=== PATIENT | female | born 1935 | race Caucasian/White ===

== ENCOUNTER 2016-03-25 11:05 | Inpatient (IN) | payer MEDICARE, BC ==
[2016-03-25] MEDS ORDERED: DILTIAZEM 125 MG in SODIUM CHLORIDE 0.9% 100 ML IV STA (11:34)
--- NOTE | 2016-03-25 11:42 | ED ---
General Adult HPI - General Chief complaint: Extremity Injury, Lower Stated complaint: LEFT FOOT SWELLING Time Seen by Provider: 03/25/16 11:25 Source: patient, RN notes reviewed, old records reviewed Mode of arrival: ambulatory Limitations: no limitations - History of Present Illness Initial comments: This is a 80-year-old female who presented with complaints of swollen ankles and feet for the past week she denies any fevers chills nausea vomiting sweats he does have some shortness of breath. She is of a history of hypertension history of A. fib in the past no history of DVTs. She does complain some calf pain. No leg or ankle pain otherwise. No cough or phlegm production. She does get some exertional dyspnea. - Related Data Home Medications Medication Instructions Recorded Confirmed Acetaminophen Tab [Tylenol Tab] 325 - 650 mg PO Q4H PRN 03/25/16 03/25/16 Albuterol Inhaler [Ventolin Hfa 1 - 2 puff INHALATION Q6HR PRN 03/25/16 03/25/16 Inhaler] Cholecalciferol [Vitamin D3] 2,000 unit PO DAILY 03/25/16 03/25/16 Fluticasone/Salmeterol [Advair 1 puff INHALATION RT-BID 03/25/16 03/25/16 250-50 Diskus] LORazepam [Ativan] 1 mg PO HS 03/25/16 03/25/16 Metoprolol Tartrate [Lopressor] 25 mg PO BID 03/25/16 03/25/16 Tiotropium 18 Mcg/Puff [Spiriva] 1 cap INHALATION RT-DAILY 03/25/16 03/25/16 Allergies Allergy/AdvReac Type Severity Reaction Status Date / Time clindamycin HCl Allergy Swelling Verified 03/25/16 12:51 [From Cleocin] cefuroxime axetil AdvReac Unknown Verified 03/25/16 12:51 [From Ceftin] levofloxacin [From Levaquin] AdvReac Sweating Verified 03/25/16 12:51 prednisone AdvReac Sweating Verified 03/25/16 12:51 Review of Systems ROS Statement: Those systems with pertinent positive or pertinent negative responses have been documented in the HPI. ROS Other: All systems not noted in ROS Statement are negative. Past Medical History Past Medical History: Atrial Fibrillation, COPD, GERD/Reflux, Osteoarthritis (OA ) Additional Past Medical History / Comment(s): Generalized anxiety disorder, chronic kidney disease stage III. hearing impaired History of Any Multi-Drug Resistant Organisms: None Reported Past Surgical History: Adenoidectomy, Appendectomy, Hysterectomy, Orthopedic Surgery, Tonsillectomy Additional Past Surgical History / Comment(s): Right knee arthroscopy for torn meniscus. Colonoscopies x 3 total. Bilateral eyelid surgery. Past Anesthesia/Blood Transfusion Reactions: No Reported Reaction Additional Past Anesthesia/Blood Transfusion Reaction / Comment(s): Pt has never recieved blood. Past Psychological History: Anxiety Additional Psychological History / Comment(s): Pt is . She lives alone in her single level home in [facility]. She is very independent. She rides bicycle and is an avid bowler. She drives a car. She has a niece that lives nearby if she needs someone. She shovels her own driveway. Smoking Status: Former smoker Past Alcohol Use History: Occasional Additional Past Alcohol Use History / Comment(s): Patient was a smoker one pack per day 54 years. She quit 10 years ago. She drinks alcohol daily 1-2 drinks if she is at home. 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 She has no pets in the home. Past Drug Use History: None Reported - Past Family History Father Family Medical History: Cancer Additional Family Medical History / Comment(s): Father at age 77yrs of cancer which pt believes may have started in his throat. Mother Family Medical History: Dementia Additional Family Medical History / Comment(s): Mother at age 95yrs. She was very healthy most of her life- she had dementia at the very end of her life. General Exam - General Exam Comments Initial Comments: This is a well-developed well-nourished awake alert oriented 3 female Limitations: no limitations General appearance: alert, in no apparent distress Head exam: Present: atraumatic, normocephalic, normal inspection Eye exam: Present: normal appearance, PERRL, EOMI. Absent: scleral icterus, conjunctival injection, periorbital swelling ENT exam: Present: normal exam, mucous membranes moist Neck exam: Present: normal inspection. Absent: tenderness, meningismus, lymphadenopathy Respiratory exam: Present: decreased breath sounds. Absent: respiratory distress, wheezes, rales, rhonchi, stridor Cardiovascular Exam: Present: tachycardia, irregular rhythm, normal heart sounds. Absent: systolic murmur, diastolic murmur, rubs, gallop, clicks GI/Abdominal exam: Present: soft, normal bowel sounds. Absent: distended, tenderness, guarding, rebound, rigid Extremities exam: Present: full ROM, normal capillary refill, pedal edema, calf tenderness. Absent: tenderness, joint swelling Back exam: Present: normal inspection Neurological exam: Present: alert, oriented X3, CN II-XII intact Psychiatric exam: Present: normal affect, normal mood Skin exam: Present: warm, dry, intact, normal color. Absent: rash Course Vital Signs 03/25/16 03/25/16 03/25/16 11:17 11:38 11:42 Temperature 97.4 F L Pulse Rate 137 H 144 H Pulse Rate [ 146 H Sanitarian ] Respiratory 20 20 22 Rate Blood Pressure 131/95 142/94 O2 Sat by Pulse 96 98 Oximetry 03/25/16 03/25/16 03/25/16 12:53 13:10 14:30 Temperature 97.6 F Pulse Rate 100 117 H 110 H Pulse Rate [ Sanitarian ] Respiratory 18 18 Rate Blood Pressure 119/79 151/84 O2 Sat by Pulse 97 100 Oximetry - Reevaluation(s) Reevaluation #1: 03/25/16 16:02 Reevaluation patient after the initial evaluation showed no chest pain. He still having symptoms however Reevaluation #2: 03/25/16 16:02 She had markedly elevated d-dimer ultrasound was done which is negative for DVT CAT scan chest showed no evidence of pulmonary embolism Medical Decision Making - Medical Decision Making I did discuss findings with patient and with the admitting physician patient will be admitted for evaluation of rapid atrial fibrillation. - Lab Data Result diagrams: 03/25/16 11:35 03/25/16 11:35 Lab Results 03/25/16 03/25/16 03/25/16 Range/Units 11:35 11:35 11:35 WBC (3.8-10.6) k/uL RBC (3.80-5.40) m/uL Hgb (11.4-16.0) gm/dL Hct (34.0-46.0) % MCV (80.0-100.0) fL MCH (25.0-35.0) pg MCHC (31.0-37.0) g/dL RDW (11.5-15.5) % Plt Count (150-450) k/uL Neutrophils % % Lymphocytes % % Monocytes % % Eosinophils % % Basophils % % Neutrophils # (1.3-7.7) k/uL Lymphocytes # (1.0-4.8) k/uL Monocytes # (0-1.0) k/uL Eosinophils # (0-0.7) k/uL Basophils # (0-0.2) k/uL PT 12.3 H (9.0-12.0) sec INR 1.2 (<1.1) APTT 22.4 (22.0-30.0) sec D-Dimer (<0.60) mg/L FEU Sodium (137-145) mmol/L Potassium (3.5-5.1) mmol/L Chloride (98-107) mmol/L Carbon Dioxide (22-30) mmol/L Anion Gap mmol/L BUN (7-17) mg/dL Creatinine (0.52-1.04) mg/dL Est GFR (MDRD) Af Amer (>60 ml/min/1.73 sqM) Est GFR (MDRD) Non-Af (>60 ml/min/1.73 sqM) Glucose (74-99) mg/dL Calcium (8.4-10.2) mg/dL Magnesium (1.6-2.3) mg/dL Total Bilirubin (0.2-1.3) mg/dL AST (14-36) U/L ALT (9-52) U/L Alkaline Phosphatase (38-126) U/L Total Creatine Kinase 115 (30-135) U/L CK-MB (CK-2) 2.8 H* (0.0-2.4) ng/mL CK-MB (CK-2) Rel Index 2.4 Troponin I <0.012 (0.000-0.034) ng/mL NT-Pro-B Natriuret Pep 1390 pg/mL Total Protein (6.3-8.2) g/dL Albumin (3.5-5.0) g/dL TSH (0.465-4.680) mIU/L 03/25/16 03/25/16 03/25/16 Range/Units 11:35 11:35 11:35 WBC 7.4 (3.8-10.6) k/uL RBC 4.66 (3.80-5.40) m/uL Hgb 14.3 (11.4-16.0) gm/dL Hct 45.4 (34.0-46.0) % MCV 97.3 (80.0-100.0) fL MCH 30.6 (25.0-35.0) pg MCHC 31.4 (31.0-37.0) g/dL RDW 12.8 (11.5-15.5) % Plt Count 170 (150-450) k/uL Neutrophils % 80 % Lymphocytes % 12 % Monocytes % 4 % Eosinophils % 2 % Basophils % 1 % Neutrophils # 5.9 (1.3-7.7) k/uL Lymphocytes # 0.9 L (1.0-4.8) k/uL Monocytes # 0.3 (0-1.0) k/uL Eosinophils # 0.1 (0-0.7) k/uL Basophils # 0.1 (0-0.2) k/uL PT (9.0-12.0) sec INR (<1.1) APTT (22.0-30.0) sec D-Dimer 4.37 H (<0.60) mg/L FEU Sodium 141 (137-145) mmol/L Potassium 4.4 (3.5-5.1) mmol/L Chloride 103 (98-107) mmol/L Carbon Dioxide 27 (22-30) mmol/L Anion Gap 11 mmol/L BUN 17 (7-17) mg/dL Creatinine 1.22 H (0.52-1.04) mg/dL Est GFR (MDRD) Af Amer 51 (>60 ml/min/1.73 sqM) Est GFR (MDRD) Non-Af 42 (>60 ml/min/1.73 sqM) Glucose 109 H (74-99) mg/dL Calcium 9.6 (8.4-10.2) mg/dL Magnesium 1.8 (1.6-2.3) mg/dL Total Bilirubin 0.8 (0.2-1.3) mg/dL AST 37 H (14-36) U/L ALT 50 (9-52) U/L Alkaline Phosphatase 73 (38-126) U/L Total Creatine Kinase (30-135) U/L CK-MB (CK-2) (0.0-2.4) ng/mL CK-MB (CK-2) Rel Index Troponin I (0.000-0.034) ng/mL NT-Pro-B Natriuret Pep pg/mL Total Protein 6.8 (6.3-8.2) g/dL Albumin 4.3 (3.5-5.0) g/dL TSH 2.710 (0.465-4.680) mIU/L - EKG Data -: EKG Interpreted by Me (Rapid atrial fibrillation with a rate of 145 QRS of 86 QT/QTC of 3 or 47) - Radiology Data Radiology results: report reviewed, image reviewed Critical Care Time Critical Care Time: Yes Critical Care Time: 32 minutes of critical care time which includes initial assessment with history physical lab and x-ray evaluation reevaluation of response to therapy. Reevaluation the patient again. Discussion with the admitting physician. Evaluation of the lab and x-rays were done. Evaluation CAT scan ultrasound. Admission orders and documentation of the above. Disposition Clinical Impression: Rapid atrial fibrillation, Bronchospasm, acute Disposition: ADMITTED IP TO THIS HOSP Condition: Stable
[2016-03-25 11:49] LABS: Basophils # (A) 0.1 k/uL (0-0.2); Basophils % (A) 1 %; CH 30.8; CHCM 31.8; Eosinophils # (A) 0.1 k/uL (0-0.7); Eosinophils % (A) 2 %; HCT 45.4 % (34.0-46.0); HDW 2.34; HGB 14.3 gm/dL (11.4-16.0); Luc # (Auto) 0.11; Luc % (Auto) 1; Lymphocytes # (A) 0.9 k/uL (1.0-4.8); Lymphocytes % (A) 12 %; MCH 30.6 pg (25.0-35.0); MCHC 31.4 g/dL (31.0-37.0); MCV 97.3 fL (80.0-100.0); Mean Platelet Volume 7.4; Monocytes # (A) 0.3 k/uL (0-1.0); Monocytes % (A) 4 %; Neutrophils # (A) 5.9 k/uL (1.3-7.7); Neutrophils % (A) 80 %; RBC 4.66 m/uL (3.80-5.40); RDW 12.8 % (11.5-15.5); WBC 7.4 k/uL (3.8-10.6); WBC (Perox) 7.47
[2016-03-25 11:59] LABS: Calcium 9.6 mg/dL (8.4-10.2); Magnesium 1.8 mg/dL (1.6-2.3); Potassium 4.4 mmol/L (3.5-5.1); Total Bilirubin 0.8 mg/dL (0.2-1.3); Total Protein 6.8 g/dL (6.3-8.2)
[2016-03-25 12:03] LABS: INR 1.2 (<1.1); Partial Thromboplastin Time 22.4 sec (22.0-30.0); Prothrombin Time 12.3 sec (9.0-12.0)
[2016-03-25 12:10] LABS: Creatine Kinase 115 U/L (30-135)
--- NOTE | 2016-03-25 12:14 | XR ---
EXAMINATION TYPE: XR chest 1V portable DATE OF EXAM: 03/25/2016 11:57 AM COMPARISON: Chest x-ray and CT chest April 20, 2014. HISTORY: Ankle swelling per patient. Dysrhythmia per order TECHNIQUE: Single AP portable frontal upright view of the chest is obtained. FINDINGS: Underlying emphysematous change with left basilar linear scarring is redemonstrated. Ther e is no suspicious new focal airspace opacity, pleural effusion, or pneumothorax seen bilaterally The cardiac silhouette size is enlarged with atherosclerotic aorta. The osseous structures are somewha t demineralized. IMPRESSION: Chronic emphysematous change and cardiomegaly without acute pulmonary process. No signif icant change from prior studies.
[2016-03-25 12:23] LABS: Troponin I <0.012 ng/mL (0.000-0.034)
[2016-03-25 12:27] LABS: Creatine Kinase MB 2.8 ng/mL (0.0-2.4)
--- NOTE | 2016-03-25 13:10 | US ---
EXAMINATION TYPE: US venous doppler duplex LE DATE OF EXAM: 03/25/2016 11:42 AM COMPARISON: US 04/20/2014 right lower extremity CLINICAL HISTORY: US. Patient presents with swollen ankles and feet for the past week as well as calf tenderness. She has a history of hypertension and Afib. SIDE PERFORMED: Bilateral VESSELS IMAGED: External Iliac Vein (EIV) Common Femoral Vein Deep Femoral Vein Greater Saphenous Vein * Femoral Vein Popliteal Vein Proximal Calf Veins (* superficial vessels) Right Leg: Negative for DVT Left Leg: Negative for DVT TECHNOLOGIST IMPRESSION: Negative as seen for DVT bilaterally. Satisfactory compressibility, phasicity, and blood flow is seen at the following levels above. IMPRESSION: No ultrasound evidence for acute DVT in either lower extremity.
[2016-03-25] MEDS ORDERED: RX INFO: IV CONTRAST WAS GIVEN 1 EACH MISC MISCELLANE PRN (13:32)
--- NOTE | 2016-03-25 14:48 | CT ---
EXAMINATION TYPE: CT angio chest DATE OF EXAM: 03/25/2016 2:18 PM COMPARISON: Prior CTA chest April 20, 2014 HISTORY: Prior study on PACS. Patient having swelling to ankles chest pain rule out pulmonary embolis m. CT DLP: 561.0 mGycm Automated exposure control for dose reduction was used. CONTRAST: CTA scan of the thorax is performed with IV Contrast, patient injected with 80, wasted 55 mL of Visip aque 320, pulmonary embolism protocol. MIP images are created and reviewed. 3D reconstructed images are created on an independent workstation and reviewed. FINDINGS: LUNGS: Background of mild to moderate emphysematous change is present bilaterally. There is some scat tered linear scarring and/or atelectasis in both lung bases. There is no concerning noncalcified pare nchymal nodule or mass identified. There is redemonstration of 1 cm central calcified nodule in the r ight midlung anteriorly on axial image 66 presumed benign. MEDIASTINUM: There is satisfactory enhancement of the pulmonary artery and its branches, there is no CT evidence for pulmonary embolism. There are no greater than 1 cm hilar or mediastinal lymph nodes. There are prominent but subcentimeter prevascular, AP window, pericarinal, bilateral hilar, and subc arinal lymph nodes. No pericardial effusion is seen. There is moderate right greater than left atria l dilatation redemonstrated. There is no significant cardiomegaly. OTHER: Small hiatal hernia is present. There is 2 mm nonobstructing calculus posteriorly mid pole le je right kidney on axial image 189 slight underlying scoliotic curvature is present. Multilevel spur ring in the spine is present. There is persistent slight low-attenuation and lobulation of liver. IMPRESSION: 1. NO CT EVIDENCE FOR PULMONARY EMBOLISM. 2. MILD TO MODERATE EMPHYSEMATOUS CHANGE WITH BASILAR ATELECTATIC CHANGE AND/OR SCARRING. NO SUSPICIO US ACUTE PULMONARY PROCESS IS SEEN.
[2016-03-25] MEDS ORDERED: NALOXONE 0.4 MG/ML 1 ML VIAL IV PRN (16:07)
[2016-03-25] MEDS ORDERED: HEPARIN SODIUM,PORCINE 5,000 UNIT/ML 1 ML VIAL IV ONE (16:08)
[2016-03-25] MEDS: HEPARIN SODIUM,PORCINE/D5W PMX 25,000 UNIT in DEXTROSE/WATER 1 500ML.BAG IV SCH (16:34)
[2016-03-25 18:16] VITALS: BMI 24.9
[2016-03-25] MEDS ORDERED: IPRATROPIUM-ALBUTEROL 3 ML NEB INHALATION SCH (20:00)
[2016-03-25 20:21] LABS: Creatine Kinase MB 1.8 ng/mL (0.0-2.4)
[2016-03-25] MEDS: FUROSEMIDE 10 MG/ML 4 ML VIAL IV SCH (20:58)
[2016-03-25] MEDS: LORazepam 1 MG TAB PO SCH (20:58)
[2016-03-25] MEDS: METOPROLOL TARTRATE 25 MG TAB PO SCH (21:00)
[2016-03-25] MEDS ORDERED: IPRATROPIUM-ALBUTEROL 3 ML NEB INHALATION PRN (21:47)
[2016-03-25] MEDS ORDERED: ALPRAZolam 0.25 MG TAB PO PRN (22:53)
[2016-03-25] MEDS ORDERED: HYDROcodone/APAP 5-325MG 1 EACH TAB PO PRN (22:53)
[2016-03-26 00:18] LABS: Creatine Kinase MB 1.3 ng/mL (0.0-2.4)
[2016-03-26 00:20] LABS: Troponin I 0.074 ng/mL (0.000-0.034)
[2016-03-26] MEDS: MELATONIN 3 MG TABLET PO SCH ×2 (01:42→22:37)
[2016-03-26 01:58] LABS: Appearance,Urine Clear (Clear); Bilirubin,Urine Negative (Negative); Glucose,Urine (UA) Negative (Negative); Ketones,Urine Negative (Negative); Leukocyte Esterase,Urine Negative (Negative); Nitrite,Urine Negative (Negative); Protein,Urine Negative (Negative); Specific Gravity,Urine 1.007 (1.001-1.035); UA Billing (MACRO vs. MICRO) CHEM; Urobilinogen,Urine <2.0 mg/dL (<2.0)
[2016-03-26] MEDS: FUROSEMIDE 10 MG/ML 4 ML VIAL IV SCH ×2 (08:34→22:37)
[2016-03-26] MEDS: METOPROLOL TARTRATE 25 MG TAB PO SCH ×2 (08:34→22:37)
[2016-03-26] MEDS: IPRATROPIUM-ALBUTEROL 3 ML NEB INHALATION SCH ×4 (09:16→19:43)
[2016-03-26] MEDS: SYMBICORT 80-4.5 MCG INHALER INHALATION SCH ×2 (09:16→19:43)
[2016-03-26 09:59] LABS: Basophils # (A) 0.1 k/uL (0-0.2); Basophils % (A) 1 %; CH 31.6; CHCM 32.2; Eosinophils # (A) 0.1 k/uL (0-0.7); Eosinophils % (A) 1 %; HCT 45.1 % (34.0-46.0); HDW 2.32; HGB 13.9 gm/dL (11.4-16.0); Luc # (Auto) 0.06; Luc % (Auto) 1; Lymphocytes # (A) 0.5 k/uL (1.0-4.8); Lymphocytes % (A) 5 %; MCH 30.4 pg (25.0-35.0); MCHC 30.8 g/dL (31.0-37.0); MCV 98.6 fL (80.0-100.0); Mean Platelet Volume 8.5; Monocytes # (A) 0.3 k/uL (0-1.0); Monocytes % (A) 3 %; Neutrophils # (A) 9.1 k/uL (1.3-7.7); Neutrophils % (A) 90 %; RBC 4.57 m/uL (3.80-5.40); RDW 12.8 % (11.5-15.5); WBC 10.1 k/uL (3.8-10.6); WBC (Perox) 10.93
[2016-03-26 10:09] LABS: Potassium 3.9 mmol/L (3.5-5.1)
--- NOTE | 2016-03-26 11:28 | HP ---
DATE OF ADMISSION: The chief complaint is left foot swelling. HISTORY OF PRESENT ILLNESS: This is an 80-year-old woman with a past medical history of atrial fibrillation, history of COPD, history of DJD, history of generalized anxiety, history of chronic renal disease, history of anxiety, lives alone in a single level at home . The patient was noted to have ankle swelling and some discomfort and patient was taken to [facility], admitted for further evaluation and treatment. The patient was found to have atrial fibrillation with fast ventricular rate and patient was admitted for further evaluation and treatment. Patient also had some bronchospasm also. There is no history of fever, chills or rigors. No history of headache, loss of consciousness or seizures. The patient followed with Dr. Alcantar in the outpatient setting. PAST MEDICAL HISTORY: History of atrial fibrillation, COPD, DJD, history of generalized anxiety disorder, adenoidectomy, appendectomy, history of anxiety. Medications prior to admission include home medications prior to admission include: 1. Spiriva 1 puff daily. 2. Lopressor 25 mg daily. 3. Ativan 1 mg p.o. q.h.s. 4. Advair 250/50 one puff b.i.d. 5. Vitamin D3 two thousand daily. 6. Ventolin HFA 1 to 2 puffs q.6 p.r.n. 7. Tylenol 325 to 650 mg q.4 p.r.n. Allergies are CLINDAMYCIN, CIPROFLOXACIN, LEVAQUIN and PREDNISONE. FAMILY HISTORY: History of cancer in the family, throat cancer in the father. SOCIAL HISTORY: Previous history of smoking, no history of current smoking or alcohol intake. REVIEW OF SYSTEMS: ENT: No diminished vision or diminished hearing. CARDIOVASCULAR: As mentioned earlier. RESPIRATORY: As mentioned earlier. GI: No nausea. : No dysuria. NERVOUS SYSTEM: No numbness or weakness. ALLERGY/IMMUNOLOGY: No asthma or hayfever. MUSCULOSKELETAL: As mentioned earlier. HEMATOLOGY/ONCOLOGY: No history of anemia. ENDOCRINE: As mentioned earlier. CONSTITUTIONAL: As mentioned earlier. DERMATOLOGY: Negative. RHEUMATOLOGY: Negative. PSYCHIATRY: As mentioned earlier. PHYSICAL EXAM: Patient is alert and oriented x3. Pulse 132, irregular. Blood pressure 135/96, respirations 20, temperature is normal, pulse ox is 96% on 2 L. HEENT: Conjunctivae normal, oral mucosa moist. NECK: No jugular venous congestion. No lymph node enlargement. CARDIOVASCULAR SYSTEM: S1, S2, irregular, tachycardic. No murmur. RESPIRATORY: Breath sounds diminished at the bases, bilateral scattered rhonchi and expiratory wheeze, no crackles. Abdomen is soft, nontender. No mass palpable. EXTREMITIES: Bilateral leg edema present. Otherwise, pulses are normal. No swelling. NERVOUS SYSTEM: Higher function as mentioned. Moves all 4 limbs. No focal motor deficits. LYMPHATICS: No lymph node in the neck, axillae or groin. SKIN: No ulcer, rash or bleeding. Labs are at this time shows CBC within normal limits. INR and PT is 12.3, INR is 1.2. D-dimer is 4.37, creatinine is 1.22 and CK-MB is 2.8. ASSESSMENT: 1. Atrial fibrillation with fast ventricular rate. 2. Bilateral leg edema, rule out congestive heart failure acute exacerbation or cor pulmonale. 3. Chronic obstructive pulmonary disease. 4. Degenerative joint disease. 5. Generalized anxiety. 6. Chronic kidney disease, stage III. 7. Hard of hearing. 8. History of hysterectomy. 9. History of degenerative joint disease. 10. History of anxiety. 11. Remote history of nicotine dependence. 12. History of gastroesophageal reflux disease. 13. History of renal failure. RECOMMENDATION: Recommend to continue current medications, continue monitoring and symptomatic treatment. Otherwise, at this time continue the bronchodilators. I would also continue with Lasix and obtain a 2-D echo with a Doppler. Cardiology will be consulted and guarded prognosis because of multiple complex medical issues. A copy of this will be forwarded to Dr. Alcantar who is the primary physician. [email or web address]
--- NOTE | 2016-03-26 11:39 | P.CRDCN ---
History of Present Illness Consult date: 03/26/16 Chief complaint: CHF History of present illness: This is a pleasant 80-year-old female patient who never seen a superintendent transmission in the past with a past medical history significant for COPD, paroxysmal A. fib, hypertension, and dyslipidemia, presented to the hospital complaining of progressive dyspnea. She has not been feeding well over the last 4 weeks. She describes exertional dyspnea associated with bilateral lower extremities edema. Over the last several days she has been feeding her heart was racing up. The patient denies having any chest pain or discomfort and denies feeling any dizziness or lightheadedness. She was diagnosed with congestive heart failure exacerbation and she was started on Lasix IV. Also she was noted to be in A. fib with RVR and she was started on Cardizem and drip. The EKG showed A. fib with RVR with diffuse ST and T wave abnormalities likely represent underlying CAD. The chest x-ray showed chronic emphysematous changes without any acute finding. The BNP came in to elevated. The patient never had any echocardiogram over the last year. We'll continue the Lasix IV. Continue the Cardizem drip to control the heart rate. Unfortunately I cannot increase the dose of metoprolol by mouth because of the marginally low blood pressure. We will obtain an echocardiogram with Doppler to assess the LV function. The patient need to be on anticoagulation. Currently she is on heparin IV. We will consider starting her on one of the new anticoagulation agent was sitting echocardiogram performed. Past Medical History Past Medical History: Atrial Fibrillation, COPD, Osteoarthritis (OA) Additional Past Medical History / Comment(s): Generalized anxiety disorder, chronic kidney disease stage III. hearing impaired History of Any Multi-Drug Resistant Organisms: None Reported Past Surgical History: Adenoidectomy, Appendectomy, Hysterectomy, Orthopedic Surgery, Tonsillectomy Additional Past Surgical History / Comment(s): Right knee arthroscopy for torn meniscus. Colonoscopies x 3 total. Bilateral eyelid surgery. Past Anesthesia/Blood Transfusion Reactions: No Reported Reaction Additional Past Anesthesia/Blood Transfusion Reaction / Comment(s): Pt has never recieved blood. Past Psychological History: Anxiety Additional Psychological History / Comment(s): Pt is . She lives alone in her single level home in [facility]. She is very independent. She rides bicycle and is an avid bowler. She drives a car. She has a niece that lives nearby if she needs someone. She shovels her own driveway. Smoking Status: Former smoker Past Alcohol Use History: Occasional Additional Past Alcohol Use History / Comment(s): Patient was a smoker one pack per day 54 years. She quit 12 years ago. She drinks alcohol daily 1-2 drinks if she is at home. 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 She has no pets in the home. Past Drug Use History: None Reported - Past Family History Father Family Medical History: Cancer Additional Family Medical History / Comment(s): Father at age 77yrs of cancer which pt believes may have started in his throat. Mother Family Medical History: Dementia Additional Family Medical History / Comment(s): Mother at age 95yrs. She was very healthy most of her life- she had dementia at the very end of her life. Medications and Allergies Home Medications Medication Instructions Recorded Confirmed Type Acetaminophen Tab [Tylenol Tab] 325 - 650 mg PO Q4H PRN 03/25/16 03/25/16 History Albuterol Inhaler [Ventolin Hfa 1 - 2 puff INHALATION Q6HR PRN 03/25/16 History Inhaler] Cholecalciferol [Vitamin D3] 2,000 unit PO DAILY 03/25/16 03/25/16 History Fluticasone/Salmeterol [Advair 1 puff INHALATION RT-BID 03/25/16 03/25/16 History 250-50 Diskus] LORazepam [Ativan] 1 mg PO HS 03/25/16 03/25/16 History Metoprolol Tartrate [Lopressor] 25 mg PO BID 03/25/16 03/25/16 History Tiotropium 18 Mcg/Puff [Spiriva] 1 cap INHALATION RT-DAILY 03/25/16 03/25/16 History Allergies Allergy/AdvReac Type Severity Reaction Status Date / Time clindamycin HCl Allergy Swelling Verified 03/25/16 12:51 [From Cleocin] cefuroxime axetil AdvReac Unknown Verified 03/25/16 12:51 [From Ceftin] levofloxacin [From Levaquin] AdvReac Sweating Verified 03/25/16 12:51 prednisone AdvReac Sweating Verified 03/25/16 12:51 Physical Exam Vitals: Vital Signs Temp Pulse Pulse Resp BP BP Pulse Ox 03/26/16 11:12 112 H 16 98/64 97 03/26/16 09:25 104 H 03/26/16 09:16 100 03/26/16 08:00 97.6 F 116 H 16 109/63 97 03/26/16 04:00 112 H 18 120/73 98 03/26/16 00:00 122 H 20 136/82 97 03/25/16 20:48 110 H 03/25/16 20:39 110 H 98 03/25/16 20:00 132 H 20 135/90 96 03/25/16 17:10 135 H 18 160/98 98 03/25/16 16:36 97.1 F L 115 H 18 107/84 100 Intake and Output 03/25/16 03/26/16 03/26/16 22:59 06:59 14:59 Intake Total 200 719.302 Output Total 1900 900 Balance 200 -1180.698 -900 Intake: IV 60 Heparin Sodium,Porcine/ 60 D5w Pmx 25,000 unit In Dextrose/Water 1 500ml. bag @ 12 UNITS/KG/HR 17. 41 mls/hr IV .Q24H JORDY Rx #:[id number] Intake, IV Titration 179.302 Amount Diltiazem 125 mg In 20 Sodium Chloride 0.9% 100 ml @ 5 MG/HR 5 mls/hr IV .Q24H STA Rx#:[id number] Heparin Sodium,Porcine/ 159.302 D5w Pmx 25,000 unit In Dextrose/Water 1 500ml. bag @ 12 UNITS/KG/HR 17. 41 mls/hr IV .Q24H JORDY Rx #:[id number] Oral 200 480 Output: Urine 1900 900 Other: # Voids 4 Weight 72.2 kg 71.9 kg - Constitutional General appearance: no acute distress - Respiratory Respiratory: bilateral: diminished - Cardiovascular Rhythm: irregularly irregular Heart sounds: normal: S1, S2 Results 03/26/16 09:16 03/26/16 09:16 Cardiac Enzymes 03/25/16 03/25/16 03/26/16 Range/Units 19:41 23:18 09:16 CK-MB (CK-2) 1.8 1.3 (0.0-2.4) ng/mL Troponin I 0.074 H* 0.138 H* (0.000-0.034) ng/mL Coagulation 03/25/16 03/26/16 Range/Units 23:18 09:16 APTT 37.1 H 53.2 H (22.0-30.0) sec CBC 03/26/16 Range/Units 09:16 WBC 10.1 (3.8-10.6) k/uL RBC 4.57 (3.80-5.40) m/uL Hgb 13.9 (11.4-16.0) gm/dL Hct 45.1 (34.0-46.0) % Plt Count 147 L (150-450) k/uL Comprehensive Metabolic Panel 03/26/16 Range/Units 09:16 Sodium 137 (137-145) mmol/L Potassium 3.9 (3.5-5.1) mmol/L Chloride 99 (98-107) mmol/L Carbon Dioxide 27 (22-30) mmol/L BUN 14 (7-17) mg/dL Creatinine 1.13 H (0.52-1.04) mg/dL Glucose 144 H (74-99) mg/dL Calcium 9.0 (8.4-10.2) mg/dL Current Medications Generic Name Dose Route Start Last Admin Trade Name Donnieq PRN Reason Stop Dose Admin Acetaminophen/Hydrocodone Bitart 1 each 03/25/16 22:53 [place] 5-325 PO Q6HR PRN Pain Albuterol/Ipratropium 3 ml 03/25/16 21:47 Duoneb 0.5 Mg-3 Mg/3 Ml Soln INHALATION RT-QID PRN Shortness Of Breath Or Wheezing Albuterol/Ipratropium 3 ml 03/26/16 08:00 03/26/16 09:16 Duoneb 0.5 Mg-3 Mg/3 Ml Soln INHALATION 3 ml RT-QID JORDY Administration Alprazolam 0.25 mg 03/25/16 22:53 Xanax PO TID PRN Anxiety Budesonide/Formoterol Fumarate 2 puff 03/26/16 08:00 03/26/16 09:16 Symbicort 80-4.5 Mcg Inhaler INHALATION 2 puff RT-BID JORDY Administration Cholecalciferol 2,000 unit 03/26/16 12:00 Vitamin D3 PO DAILY@1200 JORDY Furosemide 40 mg 03/25/16 21:00 03/26/16 08:34 Lasix IV 40 mg Q12HR JORDY Administration Heparin Sodium/Dextrose 25,000 500 mls @ 17.41 mls/hr 03/25/16 16:15 01:43 unit/ IV Solution IV 15 units/kg/hr .Q24H JORDY 21.77 mls/hr Protocol Titration 12 UNITS/KG/HR Lorazepam 1 mg 03/25/16 21:00 03/25/16 20:58 Ativan PO 1 mg HS JORDY Administration Melatonin 3 mg 03/25/16 23:00 03/26/16 01:42 Melatonin PO 3 mg HS JORDY Administration Metoprolol Tartrate 25 mg 03/25/16 21:00 03/26/16 08:34 Lopressor PO 25 mg BID JORDY Administration Miscellaneous Information 1 each 03/25/16 13:32 03/25/16 13:52 Rx Info: Iv Contrast Was Given MISCELLANE 03/27/16 13:32 1 each DAILY PRN Administration Per Protocol Naloxone HCl 0.2 mg 03/25/16 16:07 Narcan IV Q2M PRN Opioid Reversal Intake and Output 03/25/16 03/26/16 03/26/16 22:59 06:59 14:59 Intake Total 200 719.302 Output Total 1900 900 Balance 200 -1180.698 -900 Intake: IV 60 Heparin Sodium,Porcine/ 60 D5w Pmx 25,000 unit In Dextrose/Water 1 500ml. bag @ 12 UNITS/KG/HR 17. 41 mls/hr IV .Q24H JORD[facility] Rx #:[id number] Intake, IV Titration 179.302 Amount Diltiazem 125 mg In 20 Sodium Chloride 0.9% 100 ml @ 5 MG/HR 5 mls/hr IV .Q24H STA Rx#:[id number] Heparin Sodium,Porcine/ 159.302 D5w Pmx 25,000 unit In Dextrose/Water 1 500ml. bag @ 12 UNITS/KG/HR 17. 41 mls/hr IV .Q24H JORDY Rx #:[id number] Oral 200 480 Output: Urine 1900 900 Other: # Voids 4 Weight 72.2 kg 71.9 kg 03/26/16 09:16 03/26/16 09:16 Assessment and Plan Plan: Assessment #1 acute respiratory failure #2 congestive heart failure exacerbation and known if this is secondary to systolic or diastole dysfunction at this point #3 atrial fibrillation with rapid ventricular response #4 COPD #5 multiple comorbidities Plan #1 continue the Lasix IV #2 monitor the kidney function and electrolytes #3 increase the dose of metoprolol once a pressure is better #4 consider starting the patient on oral anticoagulation was echocardiogram performed #5 obtaining an echocardiogram was Doppler #6 CV underlying CAD has to be ruled out down the line.
[2016-03-26] MEDS: CHOLECALCIFEROL 1,000 UNIT TAB PO SCH (12:28)
[2016-03-26] MEDS: HEPARIN SODIUM,PORCINE/D5W PMX 25,000 UNIT in DEXTROSE/WATER 1 500ML.BAG IV SCH (17:33)
[2016-03-26] MEDS: LORazepam 1 MG TAB PO SCH (22:37)
[2016-03-27 06:13] LABS: Basophils % (A) 1 %; CH 31.1; CHCM 32.5; Eosinophils # (A) 0.2 k/uL (0-0.7); Eosinophils % (A) 2 %; HCT 42.6 % (34.0-46.0); HDW 2.35; HGB 13.5 gm/dL (11.4-16.0); Luc % (Auto) 1; Lymphocytes # (A) 0.9 k/uL (1.0-4.8); Lymphocytes % (A) 13 %; MCH 30.5 pg (25.0-35.0); MCHC 31.8 g/dL (31.0-37.0); Mean Platelet Volume 7.5; Monocytes # (A) 0.2 k/uL (0-1.0); Monocytes % (A) 3 %; Neutrophils # (A) 5.5 k/uL (1.3-7.7); Neutrophils % (A) 79 %; RBC 4.44 m/uL (3.80-5.40); RDW 12.9 % (11.5-15.5); WBC 6.9 k/uL (3.8-10.6); WBC (Perox) 7.12
[2016-03-27 06:39] LABS: Calcium 8.9 mg/dL (8.4-10.2)
[2016-03-27] MEDS ORDERED: DILTIAZEM 125 MG in SODIUM CHLORIDE 0.9% 100 ML IV SCH (07:00)
[2016-03-27] MEDS: FUROSEMIDE 10 MG/ML 4 ML VIAL IV SCH ×2 (08:43→15:17)
[2016-03-27] MEDS: METOPROLOL TARTRATE 25 MG TAB PO SCH ×2 (08:43→20:36)
[2016-03-27] MEDS: IPRATROPIUM-ALBUTEROL 3 ML NEB INHALATION SCH ×4 (08:59→19:29)
[2016-03-27] MEDS: SYMBICORT 80-4.5 MCG INHALER INHALATION SCH ×2 (08:59→19:30)
--- NOTE | 2016-03-27 11:25 | ECHOF ---
Referral Reason:chf MEASUREMENTS -------- HEIGHT: 170.2 cm WEIGHT: 70.8 kg BP: 115/63 RVIDd: 2.3 cm (< 3.3) IVSd: 1.0 cm (0.6 - 1.1) LVIDd: 4.3 cm (3.9 - 5.3) LVPWd: 0.9 cm (0.6 - 1.1) IVSs: 1.3 cm LVIDs: 2.9 cm LVPWs: 1.4 cm LA Diam: 2.8 cm (2.7 - 3.8) LAESV Index (A-L): 24.01 ml/m Ao Diam: 3.4 cm (2.0 - 3.7) AV Cusp: 1.8 cm (1.5 - 2.6) LA Diam: 2.7 cm (2.7 - 3.8) MV EXCURSION: 13.991 mm (> 18.000) MV EF SLOPE: 124 mm/s (70 - 150) EPSS: 1.3 cm MV E Suraj: 0.90 m/s MV DecT: 232 ms MV A Suraj: 0.32 m/s MV E/A Ratio: 2.76 RAP: 5.00 mmHg RVSP: 48.29 mmHg FINDINGS -------- Resting tachycardia (HR>100bpm). This was a technically good study. Left ventricular wall thickness is normal. Overall left ventricular systolic function is severely impaired with, an EF between 20 - 25 %. The right ventricle is normal in size. Normal LA size by volume 22+/-6 ml/m2. The right atrium is normal in size. Aortic valve is trileaflet and is mildly thickened. The mitral valve leaflets are mildly thickened. Mild mitral annular calcification present. Mild mitral regurgitation is present. Moderate to severe tricuspid regurgitation present. There is moderate pulmonary hypertension. The right ventricular systolic pressure, as measured by Doppler, is 48.29mmHg. Pulmonic valve appears structurally normal. The aortic root size is normal. The inferior vena cava is mildly dilated. Echo free space may represent effusion or a pericardial fat pad. CONCLUSIONS -------- 1. Resting tachycardia (HR>100bpm). 2. Mild mitral annular calcification present. 3. Mild mitral regurgitation is present. 4. Moderate to severe tricuspid regurgitation present. 5. There is moderate pulmonary hypertension. 6. The right ventricular systolic pressure, as measured by Doppler, is 48.29mmHg. 7. Pulmonic valve appears structurally normal. 8. The aortic root size is normal. 9. The inferior vena cava is mildly dilated. 10. Echo free space may represent effusion or a pericardial fat pad. 11. This was a technically good study. 12. Left ventricular wall thickness is normal. 13. Overall left ventricular systolic function is severely impaired with, an EF between 20 - 25 %. 14. The right ventricle is normal in size. 15. Normal LA size by volume 22+/-6 ml/m2. 16. The right atrium is normal in size. 17. Aortic valve is trileaflet and is mildly thickened. 18. The mitral valve leaflets are mildly thickened. DRAWER IN HAND: Errol Topete RDCS
[2016-03-27] MEDS: APIXABAN 2.5 MG TABLET PO SCH ×2 (12:03→20:35)
[2016-03-27] MEDS: CHOLECALCIFEROL 1,000 UNIT TAB PO SCH (12:03)
[2016-03-27] MEDS ORDERED: DIGOXIN 250 MCG/ML 2 ML AMP IVP ONE (15:01)
--- NOTE | 2016-03-27 15:01 | P.PN ---
Subjective Principal diagnosis: Atrial fibrillation/congestive heart failure This is a pleasant 80-year-old female with history of COPD, paroxysmal atrial fibrillation, hypertension, hyperlipidemia, who presented to the hospital with symptoms of worsening shortness of breath. She states that she's been getting having progressively more short of breath over the past one month or so. She has also noticed an increase in peripheral edema. Patient was found to be in atrial fib with RVR on admission here and was initiated on IV Cardizem. Chest x-ray also suggested congestive cardiac failure and for this reason she was initiated on IV Lasix. Patient has been diuresing well on IV Lasix, her weight is down 1 kg today. Continues to be in atrial fibrillation with a heart rate of 110. Echo with Doppler study was performed which revealed an ejection fraction 20-25%. IV Cardizem was discontinued. Heart rate this afternoon up into the 140 range, earlier today in the 1 teens. Patient is currently on Lopressor 25 mg one tablet by mouth twice a day. Blood pressure 108/70. Objective - Vital Signs Vital signs: Vital Signs Temp 98.1 F 03/27/16 12:00 Pulse 126 H 03/27/16 12:00 Resp 19 03/27/16 12:00 BP 108/72 03/27/16 12:00 Pulse Ox 97 03/27/16 12:00 Intake & Output 03/26/16 03/27/16 03/27/16 18:59 06:59 18:59 Intake Total 700.698 684.099 540 Output Total 900 700 700 Balance -199.302 -15.901 -160 Weight 70.8 kg Intake: Intake, IV Titration 340.698 444.099 Amount Diltiazem 125 mg In 160 Sodium Chloride 0.9% 100 ml @ 5 MG/HR 5 mls/hr IV .Q24H STA Rx#:[id number] Heparin Sodium,Porcine/ 340.698 284.099 D5w Pmx 25,000 unit In Dextrose/Water 1 500ml. bag @ 12 UNITS/KG/HR 17. 41 mls/hr IV .Q24H [facility] Rx #:[id number] Oral 360 240 540 Output: Urine 900 700 700 Other: # Voids 3 # Bowel Movements 1 - Exam PHYSICAL EXAMINATION: HEENT: Head is atraumatic, normocephalic. Pupils equal, round. Neck is supple. There is no elevated jugular venous pressure. HEART EXAMINATION: S1 and S2 irregular irregular a systolic murmur is heard. CHEST EXAMINATION: Lungs revealed decreased air exchange with some fine expiratory wheezes. ABDOMEN: Soft, nontender. Bowel sounds are heard. No organomegaly noted. EXTREMITIES: 2+ peripheral pulses with no evidence of peripheral edema and no calf tenderness noted. NEUROLOGIC patient is awake, alert and oriented -3. . - Labs CBC & Chem 7: 03/27/16 05:55 03/27/16 05:55 Labs: Abnormal Lab Results - Last 24 Hours (Table) 03/27/16 03/27/16 03/27/16 Range/Units 05:55 05:55 05:55 Lymphocytes # 0.9 L (1.0-4.8) k/uL APTT 46.6 H (22.0-30.0) sec Creatinine 1.10 H (0.52-1.04) mg/dL Glucose 133 H (74-99) mg/dL 03/27/16 Range/Units 12:37 Lymphocytes # (1.0-4.8) k/uL APTT 36.5 H (22.0-30.0) sec Creatinine (0.52-1.04) mg/dL Glucose (74-99) mg/dL Assessment and Plan (1) Systolic CHF, acute on chronic Status: Acute (2) Paroxysmal a-fib Status: Acute (3) Paroxysmal a-fib Status: Acute (4) COPD (chronic obstructive pulmonary disease) Status: Acute (5) Anxiety Status: Acute (6) Hx of nicotine dependence Status: Acute (7) Cardiomyopathy Status: Acute Plan: From cardiology's perspective, we will discontinue the IV Cardizem, start the patient on IV amiodarone, we will also give one dose of IV and one dose of by mouth Lanoxin. Continue beta nick. Patient will need to have cardiac catheterization at some point to rule out underlying coronary artery disease. Continue IV Lasix for 24 hours. DNP note has been reviewed, I agree with a documented findings and plan of care. Patient was seen and examined.
[2016-03-27] MEDS ORDERED: DEXTROSE 5% IN WATER 100 ML with AMIODARONE 150 MG IV ONE (15:02)
[2016-03-27] MEDS: SPIRONOLACTONE 25 MG TAB PO SCH (16:45)
[2016-03-27] MEDS: AMIODARONE 450 MG in DEXTROSE 5% IN WATER 250 ML IV SCH ×4 (16:45→23:10)
--- NOTE | 2016-03-27 16:51 | PN ---
DATE OF SERVICE: 03/26/2016 This 80-year-old woman who was admitted with foot swelling and as well as CHF atrial fibrillation is being closely monitored. Cardiology is following the patient closely. No chest pain. No palpitations. No fever. CTA of the chest was showing no evidence of pulmonary embolism. Venous Doppler was negative for DVT. No chest pain or palpitation. No fever. On exam, alert and oriented times three. Pulse 118, blood pressure ntd, respiratory rate 20, temperature normal, Pulse ox 97% on 2 L. HEENT: Conjunctivae normal. NECK: No jugular venous distention. CARDIOVASCULAR: S1, S2 muffled. RESPIRATORY: Breath sounds diminished at the bases. A few scattered rhonchi and crackles. ABDOMEN: Soft, nontender. LEGS: Bilateral leg edema. Nervous system: No focal deficits. LABS: WBC 10.2, hemoglobin 13.9, glucose 144, troponin 0.138. ASSESSMENT: 1. Acute atrial fibrillation with fast ventricular rate, present on admission. 2. History of bilateral leg edema, possible congestive heart failure acute exacerbation with cor pulmonale. 3. Troponin 0.138, possible acute coronary syndrome. 4. Chronic obstructive pulmonary disease. 5. Degenerative joint disease. 6. Generalized anxiety. 7. Chronic kidney disease, stage III. 8. History of hard of hearing. 9. History of hysterectomy. 10. History of degenerative joint disease. 11. History of anxiety. 12. Remote history of nicotine dependence history. 13. History of gastroesophageal reflux disease. 14. History of renal failure. 15. FULL CODE. RECOMMENDATIONS AND DISCUSSION: In this 80-year-old woman who presented with multiple complex medical issues, we will monitor patient closely. Continue with current medications. Continue with symptomatic treatment. Cardiology consultation. Otherwise unstable angina protocol. Guarded prognosis because of the multiple complex medical issues. Further recommendations to follow. See orders for details. MTDD
--- NOTE | 2016-03-27 20:01 | PN ---
DATE OF SERVICE: 03/27/2016. PRESENTING COMPLAINT: Short of breath. INTERVAL HISTORY: This patient presented with CHF exacerbation, A. fib with rapid ventricular rate. Patient has been on IV amiodarone. Heart rate still getting up to 150s. Some swelling has come down. Also getting IV Lasix. Did tolerate diet. Patient has been up to the bedside commode. Review of systems done for constitutional, cardiovascular, GI, pulmonary; relevant findings as above. Current medications are reviewed that include IV amiodarone and Eliquis. On examination, temperature 98.1, pulse 130, respirations 19, blood pressure 122, pulse ox 97% on 2 liters. GENERAL APPEARANCE: Sitting up, lying in bed, tired appeared. HEENT: Conjunctivae normal. NECK: JVD possibly raised. RESPIRATORY: Effort increased. LUNGS: Some crackles in bases. CARDIOVASCULAR: Heart sounds irregular. Edema present. ABDOMEN: Soft, nontender. Liver and spleen not palpable. PSYCHIATRY: Alert and oriented x3. Mood and affect normal. INVESTIGATIONS: White count 6.9, hemoglobin 13.5, potassium 4.0, BUN 16, creatinine 1.10. The 2-D echocardiogram shows moderate to severe tricuspid regurgitation, moderate pulmonary hypertension; ejection fraction 20% to 25%. ASSESSMENT: 1. Acute on chronic congestive heart failure exacerbation from systolic dysfunction, probably from underlying hypertension. 2. Persistent atrial fibrillation, rate uncontrolled. 3. Primary osteoarthritis of multiple joints bilateral. 4. Chronic kidney stage III, probably from nephrosclerosis. 5. Chronic obstructive pulmonary disease in an ex-smoker. 6. Moderate tricuspid, nonrheumatic. 7. 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 PLAN: The patient continued to diuresed. Already on IV amiodarone. Also on IV Lasix. Will also had small dose of Aldactone. CHF is slow to respond.
[2016-03-27] MEDS: LORazepam 1 MG TAB PO SCH (20:35)
[2016-03-27] MEDS: DOCUSATE 100 MG CAP PO SCH (20:36)
[2016-03-27] MEDS: MELATONIN 3 MG TABLET PO SCH (20:36)
[2016-03-28] MEDS: AMIODARONE 450 MG in DEXTROSE 5% IN WATER 250 ML IV SCH ×2 (06:28)
[2016-03-28 06:48] LABS: Basophils % (A) 0 %; CHCM 32.2; Eosinophils # (A) 0.1 k/uL (0-0.7); Eosinophils % (A) 2 %; HCT 40.5 % (34.0-46.0); HDW 2.35; Luc % (Auto) 2; Lymphocytes # (A) 0.7 k/uL (1.0-4.8); Lymphocytes % (A) 14 %; MCH 31.2 pg (25.0-35.0); MCHC 32.2 g/dL (31.0-37.0); MCV 96.7 fL (80.0-100.0); Mean Platelet Volume 7.4; Monocytes # (A) 0.3 k/uL (0-1.0); Monocytes % (A) 6 %; Neutrophils % (A) 75 %; RBC 4.19 m/uL (3.80-5.40); RDW 12.7 % (11.5-15.5); WBC 5.3 k/uL (3.8-10.6); WBC (Perox) 5.58
[2016-03-28 07:05] LABS: Calcium 8.9 mg/dL (8.4-10.2); Potassium 3.7 mmol/L (3.5-5.1)
[2016-03-28] MEDS: FUROSEMIDE 10 MG/ML 4 ML VIAL IV SCH ×2 (08:08→16:41)
[2016-03-28] MEDS: METOPROLOL TARTRATE 25 MG TAB PO SCH (08:09)
[2016-03-28] MEDS: DOCUSATE 100 MG CAP PO SCH ×2 (08:09→21:50)
[2016-03-28] MEDS: DIGOXIN 125 MCG TAB PO SCH (08:09)
[2016-03-28] MEDS: SPIRONOLACTONE 25 MG TAB PO SCH (08:09)
[2016-03-28] MEDS: APIXABAN 2.5 MG TABLET PO SCH (08:09)
[2016-03-28] MEDS: SYMBICORT 80-4.5 MCG INHALER INHALATION SCH ×2 (09:16→21:01)
[2016-03-28] MEDS: IPRATROPIUM-ALBUTEROL 3 ML NEB INHALATION SCH ×4 (09:16→21:01)
[2016-03-28] MEDS ORDERED: SODIUM CHLORIDE 0.9% 1,000 ML in EMPTY BAG 1 BAG IV ONE (12:35)
[2016-03-28] MEDS ORDERED: ATORVASTATIN 80 MG TAB PO STA (12:35)
[2016-03-28] MEDS ORDERED: NITROGLYCERIN SL TABS 0.4 MG TAB SUBLINGUAL PRN (12:35)
[2016-03-28] MEDS ORDERED: ASPIRIN 325 MG TAB PO STA (12:35)
[2016-03-28] MEDS ORDERED: ALPRAZolam 0.5 MG TAB PO PRN (12:35)
[2016-03-28] MEDS ORDERED: ALPRAZolam 0.25 MG TAB PO PRN (12:35)
--- NOTE | 2016-03-28 12:37 | P.PN ---
Subjective Principal diagnosis: CHF/A. fib This is a pleasant 80-year-old female patient who never seen a soda jerker in the past with a past medical history significant for COPD, paroxysmal A. fib, hypertension, and dyslipidemia, presented to the hospital complaining of progressive dyspnea. She has not been feeding well over the last 4 weeks. She describes exertional dyspnea associated with bilateral lower extremities edema. Over the last several days she has been feeding her heart was racing up. The patient denies having any chest pain or discomfort and denies feeling any dizziness or lightheadedness. She was diagnosed with congestive heart failure exacerbation and she was started on Lasix IV. Also she was noted to be in A. fib with RVR and she was started on Cardizem and drip. The EKG showed A. fib with RVR with diffuse ST and T wave abnormalities likely represent underlying CAD. The chest x-ray showed chronic emphysematous changes without any acute finding. The BNP came in to elevated. I'll follow-up with the patient today, she continues to not feel well. She still short of breath. She still have bilateral lower extremities edema. In term of atrial fibrillation, she continues to be in A. fib with RVR. From the cardiovascular standpoint overview, I am going to increase the dose of metoprolol to 50 mg by mouth twice a day. Continue digoxin by mouth. DC amiodarone IV and start her on amiodarone by mouth. Continue anticoagulation. The patient's need to have a heart catheterization in view of the echo showing severe cardiomyopathy. Objective - Vital Signs Vital signs: Vital Signs Temp 98.2 F 03/28/16 08:00 Pulse 136 H 03/28/16 09:38 Resp 20 03/28/16 08:00 BP 124/66 03/28/16 08:00 Pulse Ox 94 L 03/28/16 08:00 Intake & Output 03/27/16 03/28/16 03/28/16 18:59 06:59 18:59 Intake Total 740 947.566 600 Output Total 1100 2775 400 Balance -360 -2177.434 200 Weight 71.7 kg Intake: Intake, IV Titration 347.566 Amount Amiodarone 450 mg In 347.566 Dextrose 5% in Water 250 ml @ 1 MG/MIN 34.53 mls/ hr IV .Q7H31M REPLACED BY [facility] Rx#: [id number] Oral 740 600 600 Output: Urine 1100 2775 400 Other: # Voids 5 # Bowel Movements 1 1 - Constitutional General appearance: Present: no acute distress - Respiratory Respiratory: bilateral: diminished - Cardiovascular Rhythm: regular Heart sounds: normal: S1, S2 - Labs CBC & Chem 7: 03/28/16 06:30 03/28/16 06:30 Labs: Abnormal Lab Results - Last 24 Hours (Table) 03/27/16 03/28/16 03/28/16 Range/Units 12:37 06:30 06:30 Lymphocytes # 0.7 L (1.0-4.8) k/uL APTT 36.5 H (22.0-30.0) sec BUN 18 H (7-17) mg/dL Creatinine 1.20 H (0.52-1.04) mg/dL Glucose 122 H (74-99) mg/dL Assessment and Plan Plan: Assessment #1 congestive heart failure exacerbation secondary to systolic dysfunction #2 A. fib with RVR #3 severity cardiomyopathy Plan #1 increase the dose of metoprolol to 50 mg by mouth twice a day #2 DC amiodarone IV and start amiodarone by mouth #3 proceed with heart catheterization in the next 24 hours.
[2016-03-28] MEDS ORDERED: METOPROLOL TARTRATE 25 MG TAB PO ONE (12:45)
[2016-03-28] MEDS: CHOLECALCIFEROL 1,000 UNIT TAB PO SCH (16:40)
[2016-03-28] MEDS ORDERED: AMIODARONE 200 MG TAB PO SCH (21:00)
[2016-03-28] MEDS: AMIODARONE 200 MG TAB PO SCH (21:47)
[2016-03-28] MEDS: LORazepam 1 MG TAB PO SCH (21:47)
[2016-03-28] MEDS: METOPROLOL TARTRATE 50 MG TAB PO SCH (21:48)
[2016-03-28] MEDS: MELATONIN 3 MG TABLET PO SCH (21:48)
[2016-03-29] MEDS: AMIODARONE 200 MG TAB PO SCH ×2 (06:09→21:17)
[2016-03-29] MEDS: METOPROLOL TARTRATE 50 MG TAB PO SCH ×2 (06:10→21:18)
[2016-03-29] MEDS: DIGOXIN 125 MCG TAB PO SCH (06:10)
[2016-03-29 06:43] LABS: Basophils % (A) 1 %; CH 30.7; CHCM 31.4; Eosinophils # (A) 0.1 k/uL (0-0.7); Eosinophils % (A) 3 %; HCT 43.9 % (34.0-46.0); HDW 2.35; HGB 13.5 gm/dL (11.4-16.0); Luc % (Auto) 2; Lymphocytes # (A) 0.7 k/uL (1.0-4.8); Lymphocytes % (A) 14 %; MCH 30.2 pg (25.0-35.0); MCHC 30.7 g/dL (31.0-37.0); MCV 98.2 fL (80.0-100.0); Mean Platelet Volume 7.6; Monocytes # (A) 0.3 k/uL (0-1.0); Monocytes % (A) 5 %; Neutrophils # (A) 3.6 k/uL (1.3-7.7); Neutrophils % (A) 76 %; RBC 4.46 m/uL (3.80-5.40); RDW 12.6 % (11.5-15.5); WBC 4.8 k/uL (3.8-10.6); WBC (Perox) 5.12
[2016-03-29 06:49] LABS: Calcium 9.2 mg/dL (8.4-10.2); Potassium 4.6 mmol/L (3.5-5.1)
--- NOTE | 2016-03-29 07:50 | PN ---
DATE OF SERVICE: 03/28/2016 PRESENTING COMPLAINT: Short of breath. INTERVAL HISTORY: This patient was seen by me yesterday on 03/28/16 been admitted with CHF exacerbation, A. fib with rapid ventricular rate. Rate is still ( ) high. Patient has been on IV amiodarone. Patient's dose of beta nick has been increased. Swelling has come down. Review of systems done for constitutional, cardiovascular, GI, pulmonary; relevant findings as above. Current medications include IV amiodarone and beta nick. On examination, temperature 97.5, pulse 120, respirations 20, blood pressure 120/60, pulse ox 95% on 2 L. GENERAL APPEARANCE: Lying in bed, not in distress. EYES: Pupils equal. Conjunctivae normal. NECK: JVD not raised. Mass not palpable. RESPIRATORY: Effort normal. LUNGS: Decreased crackles. CARDIOVASCULAR: Heart sounds irregular. Decreased edema. ABDOMEN: Soft, nontender. Liver and spleen not palpable. PSYCHIATRY: Alert and oriented x3. Mood and affect normal. INVESTIGATIONS: White count 5.3, hemoglobin 13.0. Potassium 3.7, BUN 18, creatinine 1.20. The 2-D echocardiogram showed moderate to severe tricuspid regurgitation, moderate pulmonary hypertension; EF 20% to 25%. ASSESSMENT: 1. Acute on chronic congestive heart failure exacerbation from systolic dysfunction probably from underlying hypertension, ejection fraction 20%. 2. Persistent atrial fibrillation, rate uncontrolled. 3. Primary osteoarthritis of multiple joints, bilateral. 4. Chronic kidney disease, stage III, probably from nephrosclerosis. 5. Chronic obstructive pulmonary disease in an ex-smoker. 6. Moderate tricuspid regurgitation, nonrheumatic. 7. 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 PLAN: Dose of beta nick had been increased by Cardiology. They are also switching to p.o. amiodarone. They are also contemplating a cardiac catheterization.
[2016-03-29] MEDS: FUROSEMIDE 10 MG/ML 4 ML VIAL IV SCH ×2 (07:58→16:12)
[2016-03-29] MEDS: SPIRONOLACTONE 25 MG TAB PO SCH ×2 (07:59→08:01)
[2016-03-29] MEDS: DOCUSATE 100 MG CAP PO SCH ×2 (07:59→21:17)
[2016-03-29] MEDS: SYMBICORT 80-4.5 MCG INHALER INHALATION SCH ×2 (08:51→19:56)
[2016-03-29] MEDS: IPRATROPIUM-ALBUTEROL 3 ML NEB INHALATION SCH ×4 (08:51→19:57)
[2016-03-29] MEDS ORDERED: NITROGLYCERIN SL TABS 0.4 MG TAB SUBLINGUAL PRN (09:47)
[2016-03-29] MEDS ORDERED: ATORVASTATIN 80 MG TAB PO STA (09:47)
[2016-03-29] MEDS ORDERED: ASPIRIN 325 MG TAB PO STA (09:47)
[2016-03-29] MEDS ORDERED: SODIUM CHLORIDE 0.9% 1,000 ML in EMPTY BAG 1 BAG IV ONE (09:47)
[2016-03-29] MEDS ORDERED: ALPRAZolam 0.25 MG TAB PO PRN (09:47)
[2016-03-29] MEDS ORDERED: ALPRAZolam 0.5 MG TAB PO PRN (09:47)
[2016-03-29] MEDS: CHOLECALCIFEROL 1,000 UNIT TAB PO SCH (11:25)
[2016-03-29] MEDS ORDERED: IV FLUID CONTINUATION 1,000 ML IV ONE (14:05)
[2016-03-29] MEDS ORDERED: SODIUM CHLORIDE 0.9% (PF) 10 ML VIAL ONE (14:11)
[2016-03-29] MEDS ORDERED: LIDOCAINE 2% INJ 20 MG/ML (20 ML MDV) ONE (14:11)
[2016-03-29] MEDS ORDERED: VERAPAMIL 2.5 MG/ML 2 ML AMP ONE (14:11)
[2016-03-29] MEDS ORDERED: MIDAZOLAM 2 MG/2 ML VIAL ONE ×2 (14:11→14:41)
[2016-03-29] MEDS ORDERED: LIDOCAINE 2% INJ 20 MG/ML SQ ONE (14:28)
[2016-03-29] MEDS: VERAPAMIL SYRINGE (5 MG/10 ML) INTRAARTER ONE ×2 (14:30→14:55)
[2016-03-29] MEDS: MIDAZOLAM 2 MG/2 ML VIAL IVP ONE ×2 (14:30→14:32)
[2016-03-29] MEDS: HEPARIN SODIUM 1,000 UNIT/ML VIAL IV ONE ×2 (14:34→14:45)
[2016-03-29] MEDS ORDERED: HEPARIN SODIUM 1,000 UNIT/ML VIAL ONE (14:34)
[2016-03-29] MEDS ORDERED: MIDAZOLAM 2 MG/2 ML VIAL IV ONE (14:49)
[2016-03-29] MEDS ORDERED: ADENOSINE 90 MG in SODIUM CHLORIDE 0.9% 60 ML IVP ONE (14:52)
[2016-03-29] MEDS ORDERED: IOHEXOL 350 MG/ML 100 ML BOTTLE INJ ONE (14:55)
[2016-03-29] MEDS ORDERED: RX INFO: IV CONTRAST WAS GIVEN 1 EACH MISC MISCELLANE PRN (15:02)
[2016-03-29] MEDS ORDERED: SODIUM CHLORIDE 0.9% 1,000 ML IV SCH (15:15)
[2016-03-29] MEDS: MELATONIN 3 MG TABLET PO SCH (21:18)
[2016-03-29] MEDS: LORazepam 1 MG TAB PO SCH (21:21)
--- NOTE | 2016-03-29 21:42 | PN ---
DATE OF SERVICE: 03/29/2016 PRESENTING COMPLAINT: Short of breath. INTERVAL HISTORY: This is a patient who presented with CHF exacerbation, atrial fibrillation with rapid ventricular rate. Patient is due for a cardiac catheterization today. Edema is slowly coming down. Breathing is a bit better. Review of systems done for constitutional, cardiovascular, GI, pulmonary; relevant findings as above. Current medications are reviewed. On examination, temperature 98.4, pulse 101, respiration 16, blood pressure 94/67, pulse ox 97% on 3 L. GENERAL APPEARANCE: Lying in bed, not in distress. EYES: Pupils equal. Conjunctivae normal. NECK: JVD not raised. Mass not palpable. RESPIRATORY: Effort normal. LUNGS: Diminished. Improved air entry. CARDIOVASCULAR: Heart sounds regular. Mild edema. ABDOMEN: Soft, non-tender. Liver and spleen not palpable. PSYCHIATRY: Alert and oriented x3. Mood and affect normal. INVESTIGATIONS: White count 4.8, hemoglobin 13.5. Potassium 4.6. BUN 20, creatinine 1.20. ASSESSMENT: 1. Acute on chronic congestive heart failure exacerbation from systolic dysfunction, probably from underlying hypertension; ejection fraction 20%. 2. Persistent atrial fibrillation. 3. Primary osteoarthritis of multiple joints, bilateral. 4. Chronic kidney disease, stage III, probably from nephrosclerosis. 5. Chronic obstructive pulmonary disease in an ex-smoker. 6. Moderate tricuspid regurgitation, non-rheumatic. 7. 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 PLAN: Continue the current medication and treatment plan. Awaiting cardiac catheterization. Will follow.
--- NOTE | 2016-03-29 22:10 | LTR ---
March 29, 2016 RE: Martha Cagle Hermes Dear Margarito, Per our discussion on the phone, Ms. Martha Cagle underwent a heart catheterization which showed only intermediate disease involving the LAD. Maximized medical treatment is recommended at this point of time. Thank you for allowing me to participate in her care. Sincerely, GORDON JETER MD
[2016-03-30 06:16] VITALS: RESP 18
[2016-03-30 06:40] LABS: Calcium 8.8 mg/dL (8.4-10.2); Potassium 4.1 mmol/L (3.5-5.1)
[2016-03-30] MEDS: FUROSEMIDE 10 MG/ML 4 ML VIAL IV SCH (07:46)
[2016-03-30] MEDS: DOCUSATE 100 MG CAP PO SCH (07:46)
[2016-03-30] MEDS: DIGOXIN 125 MCG TAB PO SCH (07:46)
[2016-03-30] MEDS: SPIRONOLACTONE 25 MG TAB PO SCH (07:46)
[2016-03-30] MEDS: AMIODARONE 200 MG TAB PO SCH (07:46)
[2016-03-30] MEDS: METOPROLOL TARTRATE 50 MG TAB PO SCH (07:46)
[2016-03-30] MEDS: IPRATROPIUM-ALBUTEROL 3 ML NEB INHALATION SCH ×2 (08:15→11:43)
[2016-03-30] MEDS: SYMBICORT 80-4.5 MCG INHALER INHALATION SCH (08:15)
[2016-03-30] MEDS: CHOLECALCIFEROL 1,000 UNIT TAB PO SCH (11:41)
[2016-03-30 15:23] VITALS: BP 112/68; PULSE 110; TEMP 97.5
--- NOTE | 2016-03-30 15:24 | P.PN ---
Subjective Principal diagnosis: Atrial fibrillation/congestive heart failure This is a pleasant 80-year-old female with history of COPD, paroxysmal atrial fibrillation, hypertension, hyperlipidemia, who presented to the hospital with symptoms of worsening shortness of breath. She states that she's been getting having progressively more short of breath over the past one month or so. She has also noticed an increase in peripheral edema. Patient was found to be in atrial fib with RVR on admission here and was initiated on IV Cardizem. Chest x-ray also suggested congestive cardiac failure and for this reason she was initiated on IV Lasix. Patient has been diuresing well on IV Lasix, her weight is down 1 kg today. Continues to be in atrial fibrillation with a heart rate of 110. Echo with Doppler study was performed which revealed an ejection fraction 20-25%. IV Cardizem was discontinued. 03/30/16.... Patient was seen and examined this morning, doing well overall. She underwent a cardiac catheterization yesterday which did not reveal any significant obstructive coronary artery disease. From cardiology's perspective she may be able to be discharged home today. Objective - Vital Signs Vital signs: Vital Signs Temp 97.7 F 03/30/16 07:49 Pulse 104 H 03/30/16 11:55 Resp 18 03/30/16 07:49 BP 134/67 03/30/16 07:49 Pulse Ox 98 03/30/16 07:49 Intake & Output 03/29/16 03/30/16 03/30/16 18:59 06:59 18:59 Intake Total 499.83 540 Output Total 250 1700 Balance 249.83 -1160 Weight 71.7 kg Intake: IV 219.83 Oral 280 540 Output: Urine 250 1700 Other: # Bowel Movements 1 - Exam PHYSICAL EXAMINATION: HEENT: Head is atraumatic, normocephalic. Pupils equal, round. Neck is supple. There is no elevated jugular venous pressure. HEART EXAMINATION: S1 and S2 irregular irregular a systolic murmur is heard. CHEST EXAMINATION: Lungs revealed decreased air exchange with some fine expiratory wheezes. ABDOMEN: Soft, nontender. Bowel sounds are heard. No organomegaly noted. Right radial site clean and dry, small amount of ecchymosis noted. Good distal pulse. EXTREMITIES: 2+ peripheral pulses with no evidence of peripheral edema and no calf tenderness noted. NEUROLOGIC patient is awake, alert and oriented -3. . - Labs CBC & Chem 7: 03/29/16 06:11 03/30/16 05:58 Labs: Abnormal Lab Results - Last 24 Hours (Table) 03/30/16 Range/Units 05:58 BUN 22 H (7-17) mg/dL Creatinine 1.20 H (0.52-1.04) mg/dL Glucose 110 H (74-99) mg/dL Assessment and Plan (1) Systolic CHF, acute on chronic Status: Acute (2) Paroxysmal a-fib Status: Acute (3) Paroxysmal a-fib Status: Acute (4) COPD (chronic obstructive pulmonary disease) Status: Acute (5) Anxiety Status: Acute (6) Hx of nicotine dependence Status: Acute (7) Cardiomyopathy Status: Acute (8) S/P cardiac cath Status: Acute Plan: From cardiology's perspective, patient may be able to be discharged home today. She will be discharged home on amiodarone 400 mg one tablet by mouth twice a day for one week, then 200 mg one tablet by mouth 3 times a day for a week, then 200 mg one tablet by mouth twice a day. Along with metoprolol tartrate 50 mg one tablet by mouth twice a day. A follow-up appointment will be made with Dr. Hatch in the office post discharge. DNP note has been reviewed, I agree with a documented findings and plan of care. Patient was seen and examined.
[2016-03-30] MEDS ORDERED: FUROSEMIDE 40 MG TAB PO SCH (16:00)
--- NOTE | 2016-03-31 10:00 | DS ---
DATE OF ADMISSION: 03/25/2016 DATE OF DISCHARGE: 03/30/2016 ADDENDUM: Discharge medications include Eliquis 5 mg p.o. b.i.d.
--- NOTE | 2016-03-31 10:11 | DS ---
DATE OF ADMISSION: 03/25/2016 DATE OF DISCHARGE: 03/30/2016 FINAL DIAGNOSES: 1. Acute on chronic congestive heart failure exacerbation from systolic dysfunction likely from underlying hypertension. Ejection fraction 20%. 2. Persistent atrial fibrillation. 3. Primary osteoarthritis of multiple joints, bilateral. 4. Chronic kidney stage III from nephrosclerosis. 5. Chronic obstructive pulmonary disease in an ex-smoker. 6. Moderate tricuspid regurgitation, nonrheumatic. 7. 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 8. Coronary artery disease, nonobstructive with lesion in the LAD. PROCEDURE: Cardiac catheterization HOSPITAL COURSE: This patient presented with CHF exacerbation, EF found to be 20%, also in atrial fibrillation. Cardiac cath showed nonobstructive disease in LAD. Heart rate is controlled before discharge. Seen by Dr. Pagan from cardiology. On exam, lungs are clear. CARDIOVASCULAR: Heart sounds irregular. DISCHARGE MEDICATIONS: 1. Aldactone 25 mg a day. 2. Lopressor 50 mg p.o. b.i.d. 3. Melatonin 3 mg q.h.s. 4. Lasix 40 mg a day. 5. Cordarone 200 mg twice a day for 7 days then 200 mg a day. 6. Spiriva 1 puff a day. 7. Ativan 1 mg q.h.s. 8. Advair 250/50 one puff b.i.d. 9. Vitamin D3, 2000 units a day. 10. Ventolin HFA 1 to 2 puffs q.6 p.r.n. Follow up with Dr. Alcantar 3 days. Follow up with Dr. Pagan on 04/06/16. BMP in 3 days.
--- NOTE | 2016-04-10 13:08 | CC ---
DATE OF SERVICE: March 29, 2016 Performing physician: Yobany Pagan M.D. project manager industrial. PROCEDURE PERFORMED: 1. Selective right and left coronary angiogram: 2. Fractional flow reserve, FFR of the left anterior descending artery. INDICATION: This is a pleasant 80-year-old female patient who presented to the hospital with congestive heart failure and was found to have severe cardiomyopathy with an ejection fraction around 25%. She was scheduled to undergo heart catheterization to rule out any severe underlying CAD. Approach: Right radial artery. COMPLICATIONS: None. Level of sedation: Moderate. PROCEDURE DESCRIPTION: After obtaining informed consent, the patient was brought to the cardiac lab clerk. Right radial artery was cannulated using micropuncture technique. The micropuncture wire passed easily then I placed a 6 Filipino sheath in the right radial artery. Subsequently, the patient was given 2 mg of verapamil IA and 3000 units of heparin IV. Subsequently I did selective right and left coronary angiogram using JR4 and JL 3.5 catheters. Then I did an FFR per IV adenosine infusion and please see separate paragraph for that. SELECTIVE CORONARY ANGIOGRAM: 1. The right coronary artery is a large-caliber vessel and it is a dominant vessel. It is angiographically normal. It bifurcates into PDA and PLV branches; both are angiographically normal. 2. The left main is angiographically normal. It bifurcates into the left circumflex and left anterior descending artery. 3. The left circumflex is a large-caliber vessel. It is a nondominant vessel. The proximal circumflex is angiographically normal. The mid circumflex is normal and gives rise to the first OM branch, which seems to be angiographically normal and the left circumflex distally is angiographically normal. 4. Left anterior descending artery. The proximal LAD is angiographically normally. The mid LAD has a lesion appeared to be in the range of 40% to 50%. We did an FFR of that lesion and that came in to be 0.84. The LAD distally appeared to have mild disease only. FFR of the LAD: Anticoagulation was initiated using Angiomax. Subsequently, after zeroing the Doppler wire and equalization between the Doppler wire and the guiding catheter, which was JL 3.5 guiding catheter, we did an FFR using IV adenosine infusion and FFR came in to be nonischemic. CONCLUSION: 1. Intermediate disease involving the mid left anterior descending artery. 2. FFR of the LAD was 0.84, which was nonischemic. POSTPROCEDURE MANAGEMENT: 1. Maximize medical treatment. 2. Follow up with the patient.
== END 2016-03-30 16:00 | disposition home or self-care (01) | DRG 291 ==
LOC: EC 11:05 → 6SEL 16:07
PROVIDERS: ADMIT Hospitalist; ATTEND Hospitalist
DX: I13.0 Hypertensive heart and chronic kidney disease with heart failure and stage 1 through stage 4 chronic kidney disease, or unspecified chronic kidney disease (principal); I50.23 Acute on chronic systolic (congestive) heart failure; J96.00 Acute respiratory failure, unspecified whether with hypoxia or hypercapnia; I48.1 Persistent atrial fibrillation; I27.2 Other secondary pulmonary hypertension; I42.9 Cardiomyopathy, unspecified; N18.3 Chronic kidney disease, stage 3 (moderate); I36.1 Nonrheumatic tricuspid (valve) insufficiency; E78.5 Hyperlipidemia, unspecified; F41.1 Generalized anxiety disorder; H91.90 Unspecified hearing loss, unspecified ear; I25.10 Atherosclerotic heart disease of native coronary artery without angina pectoris; I48.0 Paroxysmal atrial fibrillation; J44.9 Chronic obstructive pulmonary disease, unspecified; J98.01 Acute bronchospasm; K21.9 Gastro-esophageal reflux disease without esophagitis; M19.91 Primary osteoarthritis, unspecified site; Z87.891 Personal history of nicotine dependence; Z79.899 Other long term (current) drug therapy
CPT/HCPCS: 36415; 71010; 71275; 80048; 80053; 81003; 82550; 82553; 83735; 83880; 84443; 84484; 85025; 85379; 85610; 85730; 93005; 93306; 93454; 93571; 93965; 93970; 94640; 94760; 96365; 96376; 99291

== ENCOUNTER 2016-07-03 12:59 | Inpatient (IN) | payer MEDICARE, BC ==
[2016-07-03] MEDS ORDERED: AZITHROMYCIN 500 MG in SODIUM CHLORIDE 0.9% 250 ML IVPB STA (13:30)
[2016-07-03] MEDS ORDERED: IPRATROPIUM-ALBUTEROL 3 ML NEB INHALATION STA (13:30)
[2016-07-03] MEDS ORDERED: methylPREDNISolone SOD SUCCI 125 MG/2 ML VIAL IV STA (13:30)
[2016-07-03] MEDS ORDERED: SODIUM CHLORIDE 0.9% 500 ML IV STA (13:30)
[2016-07-03] MEDS ORDERED: SODIUM CHLORIDE 0.9% 1,000 ML IV STA (13:30)
--- NOTE | 2016-07-03 13:45 | ED ---
SOB HPI - General Chief Complaint: Shortness of Breath Stated Complaint: Cough Time Seen by Provider: 07/03/16 13:23 Source: patient Mode of arrival: ambulatory Limitations: no limitations - History of Present Illness Initial Comments: 81-year-old white female presents with the complaint of coughing and shortness of breath. She has had this for the last 9 days. He states that she's had a greenish then brownish production. The shortness of breath is worse with any exertion. She denies any chest pain. She does have a history of COPD. She normally uses her nebulizer as needed. She's been utilizing it regularly for the past several days. She admits some mild relief with the nebulized treatments. She has not been on any antibiotics. She is up-to-date with her pneumonia shot and immunizations. She denies any known fever. She does not utilize oxygen at home. She quit utilizing tobacco 12 years ago. No other complaints or modifying factors. - Related Data Home Medications Medication Instructions Recorded Confirmed Albuterol Inhaler [Ventolin Hfa 1 - 2 puff INHALATION Q6HR PRN 03/25/16 07/03/16 Inhaler] Cholecalciferol [Vitamin D3] 4,000 unit PO DAILY 03/25/16 07/03/16 Fluticasone/Salmeterol [Advair 1 puff INHALATION RT-BID 03/25/16 07/03/16 250-50 Diskus] LORazepam [Ativan] 1 mg PO BID PRN 03/25/16 07/03/16 Tiotropium 18 Mcg/Puff [Spiriva] 1 cap INHALATION RT-DAILY 03/25/16 07/03/16 Amiodarone [Cordarone] 200 mg PO DAILY 07/03/16 07/03/16 Apixaban [Eliquis] 2.5 mg PO BID 07/03/16 07/03/16 Previous Rx's Medication Instructions Recorded Furosemide [Lasix] 40 mg PO DAILY #30 tablet 03/30/16 Melatonin 3 mg PO HS tablet 03/30/16 Metoprolol Tartrate [Lopressor] 50 mg PO BID #60 tab 03/30/16 Spironolactone [Aldactone] 25 mg PO DAILY #30 tab 03/30/16 Allergies Allergy/AdvReac Type Severity Reaction Status Date / Time cefuroxime axetil AdvReac Unknown Verified 07/03/16 14:06 [From Ceftin] Review of Systems ROS Statement: Those systems with pertinent positive or pertinent negative responses have been documented in the HPI. ROS Other: All systems not noted in ROS Statement are negative. Past Medical History Past Medical History: Atrial Fibrillation, COPD, Hypertension Additional Past Medical History / Comment(s): Generalized anxiety disorder, chronic kidney disease stage III. hearing impaired History of Any Multi-Drug Resistant Organisms: None Reported Past Surgical History: Adenoidectomy, Appendectomy, Hysterectomy, Orthopedic Surgery, Tonsillectomy Additional Past Surgical History / Comment(s): Right knee arthroscopy for torn meniscus. Colonoscopies x 3 total. Bilateral eyelid surgery. Past Anesthesia/Blood Transfusion Reactions: No Reported Reaction Additional Past Anesthesia/Blood Transfusion Reaction / Comment(s): Pt has never recieved blood. Past Psychological History: Anxiety Additional Psychological History / Comment(s): Pt is . She lives alone in her single level home in [facility]. She is very independent. She rides bicycle and is an avid bowler. She drives a car. She has a niece that lives nearby if she needs someone. She shovels her own driveway. Smoking Status: Former smoker Past Alcohol Use History: Occasional Additional Past Alcohol Use History / Comment(s): Patient was a smoker one pack per day 54 years. She quit 12 years ago. She drinks alcohol daily 1-2 drinks if she is at home. 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 She has no pets in the home. Past Drug Use History: None Reported - Past Family History Father Family Medical History: Cancer Additional Family Medical History / Comment(s): Father at age 77yrs of cancer which pt believes may have started in his throat. Mother Family Medical History: Dementia Additional Family Medical History / Comment(s): Mother at age 95yrs. She was very healthy most of her life- she had dementia at the very end of her life. General Exam - General Exam Comments Initial Comments: GENERAL: The patient is well nourished and well hydrated. VITAL SIGNS: Heart rate, blood pressure, respiratory rate reviewed as recorded in nurse's notes. EYES: Pupils are round and reactive. Extraocular movements are intact. No conjunctival / lid redness or swelling. ENT: No external evidence of injury, swelling, or ecchymosis. Airway is patent. Throat is clear. Mucous membranes are dry. NECK: Nontender. No swelling or evidence of injury. No subcutaneous emphysema. Trachea is midline. No thyroid mass. HEART: Regular rate and rhythm. Good peripheral pulses. LUNGS/CHEST: There is mild wheezing noted bilaterally. No ecchymosis, subcutaneous emphysema, or tenderness. ABDOMEN: Abdomen soft without tenderness. No palpable masses or organomegaly. No peritoneal signs. No abdominal wall swelling or ecchymosis. EXTREMITIES: No extremity tenderness. Normal muscle tone and function. No thoracolumbar tenderness. NEUROLOGIC: Sensation is grossly intact. Cranial nerve exam reveals face is symmetrical, tongue is midline, speech is clear. SKIN: No abrasions or ecchymosis is noted. No induration or masses noted. PSYCHIATRIC: Alert and oriented. Appropriate behavior and judgment. Limitations: no limitations Course Vital Signs 07/03/16 07/03/16 07/03/16 13:10 14:07 14:13 Temperature 97.0 F L Pulse Rate 64 51 L 50 L Respiratory 18 Rate Blood Pressure 171/74 O2 Sat by Pulse 94 L Oximetry Medical Decision Making - Medical Decision Making The patient was seen and examined. All diagnostics are reviewed. EKG shows a normal sinus rhythm with a left anterior fascicular block. There is some nonspecific ST-T wave changes noted in the lateral leads. The ME interval is 1: 30, QRS durations 100, and QTC intervals 364. Patient receives an IV as well as some Solu-Medrol and Zithromax intravenously. She receives a DuoNeb breathing treatment. She received some IV fluid hydration. The x-ray shows evidence of COPD but no definite infiltrate. The laboratory shows that her creatinine has increased consistent with acute kidney injury. It is felt as though she benefit from admission to the hospital for further treatment of bronchitis, COPD exacerbation and acute kidney injury. She is agreeable. Case is discussed with internal medicine and they're agreeable to admission as well. - Lab Data Result diagrams: 07/03/16 13:44 07/03/16 13:44 Lab Results 07/03/16 07/03/16 07/03/16 Range/Units 13:44 13:44 13:44 WBC 7.5 (3.8-10.6) k/uL RBC 4.51 (3.80-5.40) m/uL Hgb 14.5 (11.4-16.0) gm/dL Hct 44.1 (34.0-46.0) % MCV 97.6 (80.0-100.0) fL MCH 32.1 (25.0-35.0) pg MCHC 32.9 (31.0-37.0) g/dL RDW 14.9 (11.5-15.5) % Plt Count 195 (150-450) k/uL Neutrophils % 79 % Lymphocytes % 11 % Monocytes % 5 % Eosinophils % 2 % Basophils % 1 % Neutrophils # 5.9 (1.3-7.7) k/uL Lymphocytes # 0.9 L (1.0-4.8) k/uL Monocytes # 0.4 (0-1.0) k/uL Eosinophils # 0.2 (0-0.7) k/uL Basophils # 0.1 (0-0.2) k/uL PT (9.0-12.0) sec INR (<1.1) APTT (22.0-30.0) sec Sodium 139 (137-145) mmol/L Potassium 4.1 (3.5-5.1) mmol/L Chloride 96 L (98-107) mmol/L Carbon Dioxide 30 (22-30) mmol/L Anion Gap 13 mmol/L BUN 34 H (7-17) mg/dL Creatinine 1.63 H (0.52-1.04) mg/dL Est GFR (MDRD) Af Amer 37 (>60 ml/min/1.73 sqM) Est GFR (MDRD) Non-Af 30 (>60 ml/min/1.73 sqM) Glucose 97 (74-99) mg/dL Calcium 10.1 (8.4-10.2) mg/dL Total Bilirubin 0.9 (0.2-1.3) mg/dL AST 33 (14-36) U/L ALT 27 (9-52) U/L Alkaline Phosphatase 75 (38-126) U/L Total Creatine Kinase 108 (30-135) U/L CK-MB (CK-2) 2.9 H* (0.0-2.4) ng/mL CK-MB (CK-2) Rel Index 2.7 Troponin I <0.012 (0.000-0.034) ng/mL Total Protein 8.0 (6.3-8.2) g/dL Albumin 5.0 (3.5-5.0) g/dL Influenza Type A RNA (Not Detectd) Influenza Type B (PCR) (Not Detectd) 07/03/16 07/03/16 Range/Units 13:44 13:48 WBC (3.8-10.6) k/uL RBC (3.80-5.40) m/uL Hgb (11.4-16.0) gm/dL Hct (34.0-46.0) % MCV (80.0-100.0) fL MCH (25.0-35.0) pg MCHC (31.0-37.0) g/dL RDW (11.5-15.5) % Plt Count (150-450) k/uL Neutrophils % % Lymphocytes % % Monocytes % % Eosinophils % % Basophils % % Neutrophils # (1.3-7.7) k/uL Lymphocytes # (1.0-4.8) k/uL Monocytes # (0-1.0) k/uL Eosinophils # (0-0.7) k/uL Basophils # (0-0.2) k/uL PT 11.2 (9.0-12.0) sec INR 1.1 (<1.1) APTT 23.0 (22.0-30.0) sec Sodium (137-145) mmol/L Potassium (3.5-5.1) mmol/L Chloride (98-107) mmol/L Carbon Dioxide (22-30) mmol/L Anion Gap mmol/L BUN (7-17) mg/dL Creatinine (0.52-1.04) mg/dL Est GFR (MDRD) Af Amer (>60 ml/min/1.73 sqM) Est GFR (MDRD) Non-Af (>60 ml/min/1.73 sqM) Glucose (74-99) mg/dL Calcium (8.4-10.2) mg/dL Total Bilirubin (0.2-1.3) mg/dL AST (14-36) U/L ALT (9-52) U/L Alkaline Phosphatase (38-126) U/L Total Creatine Kinase (30-135) U/L CK-MB (CK-2) (0.0-2.4) ng/mL CK-MB (CK-2) Rel Index Troponin I (0.000-0.034) ng/mL Total Protein (6.3-8.2) g/dL Albumin (3.5-5.0) g/dL Influenza Type A RNA Not Detected (Not Detectd) Influenza Type B (PCR) Not Detected (Not Detectd) Disposition Clinical Impression: Bronchitis, Acute exacerbation of chronic obstructive pulmonary disease (COPD) , Acute kidney injury, Dehydration, Acute bronchospasm Disposition: ADMITTED IP TO THIS HOSP Condition: Fair Time of Disposition: 15:01 Decision Date: 07/03/16 Decision Time: 15:01
[2016-07-03 14:06] LABS: Basophils # (A) 0.1 k/uL (0-0.2); Basophils % (A) 1 %; CH 32.3; CHCM 33.3; Eosinophils # (A) 0.2 k/uL (0-0.7); Eosinophils % (A) 2 %; HCT 44.1 % (34.0-46.0); HDW 2.55; HGB 14.5 gm/dL (11.4-16.0); Luc # (Auto) 0.09; Luc % (Auto) 1; Lymphocytes # (A) 0.9 k/uL (1.0-4.8); Lymphocytes % (A) 11 %; MCH 32.1 pg (25.0-35.0); MCHC 32.9 g/dL (31.0-37.0); MCV 97.6 fL (80.0-100.0); Mean Platelet Volume 7.8; Monocytes # (A) 0.4 k/uL (0-1.0); Monocytes % (A) 5 %; Neutrophils # (A) 5.9 k/uL (1.3-7.7); Neutrophils % (A) 79 %; RBC 4.51 m/uL (3.80-5.40); RDW 14.9 % (11.5-15.5); WBC 7.5 k/uL (3.8-10.6); WBC (Perox) 7.27
--- NOTE | 2016-07-03 14:11 | XR ---
EXAMINATION TYPE: XR chest 2V DATE OF EXAM: 07/03/2016 1:58 PM COMPARISON: 03/25/2016 and 04/20/2014. HISTORY: 81-year-old female difficulty breathing TECHNIQUE: PA and lateral views FINDINGS: The heart is normal size. Aorta within normal limits. Strandy atelectasis at the left base. A few raul e interstitial prominence with hyperinflation and flattening hemidiaphragms. Suggestion of a calcifie d granuloma anterior medial right mid lung, unchanged from 04/20/2014. No consolidation or pleural effu jerilyn. IMPRESSION: COPD with strandy left basilar atelectasis. No acute process seen.
[2016-07-03 14:15] LABS: Calcium 10.1 mg/dL (8.4-10.2); Potassium 4.1 mmol/L (3.5-5.1); Total Bilirubin 0.9 mg/dL (0.2-1.3)
[2016-07-03 14:30] LABS: Creatine Kinase 108 U/L (30-135)
[2016-07-03 14:36] LABS: INR 1.1 (<1.1); Prothrombin Time 11.2 sec (9.0-12.0)
[2016-07-03 14:44] LABS: Troponin I <0.012 ng/mL (0.000-0.034)
[2016-07-03 14:45] LABS: Creatine Kinase MB 2.9 ng/mL (0.0-2.4)
[2016-07-03 16:33] VITALS: BMI 21.9
[2016-07-03] MEDS: methylPREDNISolone SOD SUCCI 125 MG/2 ML VIAL IV SCH ×2 (17:23→23:24)
[2016-07-03] MEDS: SYMBICORT 80-4.5 MCG INHALER INHALATION SCH (21:38)
[2016-07-03] MEDS: IPRATROPIUM-ALBUTEROL 3 ML NEB INHALATION PRN (21:38)
[2016-07-03] MEDS: APIXABAN 2.5 MG TABLET PO SCH (22:12)
[2016-07-03] MEDS: METOPROLOL TARTRATE 50 MG TAB PO SCH (22:12)
[2016-07-03] MEDS: MELATONIN 3 MG TABLET PO SCH (22:12)
[2016-07-03] MEDS: guaiFENesin 600 MG TABLET.ER PO SCH (22:12)
[2016-07-03] MEDS: LORazepam 1 MG TAB PO PRN (23:31)
[2016-07-04] MEDS: methylPREDNISolone SOD SUCCI 125 MG/2 ML VIAL IV SCH ×2 (05:52→12:16)
[2016-07-04] MEDS ORDERED: TIOTROPIUM 18 MCG/PUFF INHALER INHALATION SCH (08:00)
[2016-07-04] MEDS: METOPROLOL TARTRATE 50 MG TAB PO SCH ×2 (08:16→20:02)
[2016-07-04] MEDS: APIXABAN 2.5 MG TABLET PO SCH ×2 (08:18→20:02)
[2016-07-04] MEDS: AMIODARONE 200 MG TAB PO SCH (08:19)
[2016-07-04] MEDS: CHOLECALCIFEROL 1,000 UNIT TAB PO SCH (08:19)
[2016-07-04] MEDS: SPIRONOLACTONE 25 MG TAB PO SCH (08:19)
[2016-07-04] MEDS: guaiFENesin 600 MG TABLET.ER PO SCH ×2 (08:19→20:02)
[2016-07-04] MEDS: SYMBICORT 80-4.5 MCG INHALER INHALATION SCH ×2 (08:26→20:35)
[2016-07-04] MEDS: IPRATROPIUM-ALBUTEROL 3 ML NEB INHALATION PRN (08:26)
[2016-07-04] MEDS ORDERED: FUROSEMIDE 40 MG TAB PO SCH (09:00)
[2016-07-04] MEDS: AZITHROMYCIN 500 MG in SODIUM CHLORIDE 0.9% 250 ML IVPB SCH (12:15)
[2016-07-04] MEDS ORDERED: SODIUM CHLORIDE 0.9% 1,000 ML IV SCH (13:00)
[2016-07-04] MEDS: IPRATROPIUM-ALBUTEROL 3 ML NEB INHALATION SCH ×2 (14:07→20:35)
--- NOTE | 2016-07-04 16:37 | HP ---
DATE OF ADMISSION: 07/03/2016 PRESENTING COMPLAINT: Cough, short of breath. HISTORY OF PRESENTING COMPLAINT: This is a pleasant 81-year-old patient of Dr. Alcantar whose chronic stable medical conditions include CHF, atrial fibrillation, osteoarthritis, chronic kidney disease, COPD which is at present in exacerbation and secondary pulmonary hypertension. Patient presents with one week of increasing amount of cough, brown sputum; had a fever for one day; wheezing, brown sputum; admitted for the same. REVIEW OF SYSTEMS: CONSTITUTIONAL: Weak, tired. HEENT: None. RESPIRATORY: As above. CARDIOVASCULAR: None. GASTROINTESTINAL: None. GENITOURINARY: None. MUSCULOSKELETAL: Pain in the joints. DERMATOLOGICAL: None. HEMATOLOGICAL: None. LYMPHATICS: None. PSYCHIATRY: None. NEUROLOGICAL: None. PAST MEDICAL HISTORY: 1. CHF; EF 20%. 2. Atrial fibrillation. 3. Arthritis. 4. Chronic kidney disease. 5. COPD. 6. Moderate tricuspid regurgitation. 7. Secondary pulmonary hypertension. 8. Coronary artery disease. PAST SURGICAL HISTORY: 1. Adenoidectomy. 2. Appendectomy. 3. Hysterectomy. 4. Orthopedic surgery. 5. Tonsillectomy. 6. Right knee arthroscopy for torn meniscus. 7. Bilateral eye surgery. SOCIAL HISTORY: Patient is a , lives by herself. Rides a bicycle. Is an avid bowler. Niece lives nearby. Patient smoked for 54 years; quit about 12 years ago. She drinks 1 or 2 alcoholic drinks per day. She was a seamstress. FAMILY HISTORY: Father of throat cancer. HOME MEDICATIONS: 1. Ventolin HFA one to two puffs q.6 p.r.n. 2. Spiriva 1 capsule daily. 3. Melatonin 3 mg at bedtime. 4. Ativan 1 mg p.o. b.i.d. p.r.n. 5. Eliquis 2.5 mg p.o. b.i.d. 6. Aldactone 25 mg p.o. daily. 7. Lopressor 50 mg p.o. b.i.d. 8. Lasix 40 mg p.o. daily. 9. Advair 250/50 one puff b.i.d. 10. Vitamin D3, 4000 units p.o. daily. 11. Amiodarone 200 mg p.o. daily. ALLERGIES: CEFTIN. PHYSICAL EXAMINATION: VITAL SIGNS ON PRESENTATION: Temperature 97, pulse 64, respiration 18, blood pressure 171/74, pulse ox 94% on room air. Repeat blood pressure 104/56. GENERAL APPEARANCE: Thin build. Sitting up, not in distress. EYES: Pupils equal. Conjunctivae normal. HEENT: External appearance of nose and ears normal. Oral cavity normal. NECK: JVD not raised. Mass not palpable. RESPIRATORY: Effort increased. LUNGS: Diminished breath sounds. Prolonged expiration and wheezing. CARDIOVASCULAR: First and second sounds normal. No edema. ABDOMEN: Soft, nontender. Liver and spleen not palpable. LYMPHATICS: No lymph node palpable in neck or axillae. PSYCHIATRY: Alert and oriented x3. Mood and affect normal. NEUROLOGICAL: Pupils equal. Cranial nerves grossly intact. Power and sensation grossly intact. INVESTIGATIONS: White count 7.5, hemoglobin 14.5, potassium 4.1. BUN 34, creatinine 1.63. Patient's BUN and creatinine were 22 and 1.20 on 03/30/16. Chest x-ray reviewed; it shows no obvious infiltrate. ASSESSMENT: 1. Acute severe chronic obstructive pulmonary disease exacerbation in an ex-smoker from acute tracheobronchitis. 2. Chronic kidney disease, stage III, from hypertensive nephrosclerosis. 3. Chronic congestive heart failure from systolic dysfunction from underlying coronary artery disease; ejection fraction 20%. 4. Persistent atrial fibrillation. 5. Moderate tricuspid regurgitation, non-rheumatic. 6. 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 7. Coronary artery disease with non-obstructing lesion in the left anterior descending coronary artery. PLAN: Home medications are resumed. Will temporarily hold off patient's Lasix. Patient was put on antibiotics, nebulized bronchodilators, steroids. Care was discussed with the patient. Patient was put back on Eliquis. Patient's chest x-ray shows normal sinus rhythm. Will hydrate the patient gently, see if there is any acute component of renal failure. Pulmonary is consulted.
[2016-07-04 16:49] LABS: Glucose,Whole Blood 181 mg/dL (75-99)
[2016-07-04] MEDS: methylPREDNISolone SOD SUCCI 40 MG/ML 1 ML VIAL IV SCH (17:22)
[2016-07-04] MEDS: INSULIN LISPRO (humaLOG) 300 UNIT/3 ML VIAL SQ SCH ×2 (17:23→20:54)
[2016-07-04] MEDS: LORazepam 1 MG TAB PO PRN (20:01)
[2016-07-04] MEDS: MELATONIN 3 MG TABLET PO SCH (20:02)
[2016-07-04 20:29] LABS: Glucose,Whole Blood 202 mg/dL (75-99)
[2016-07-05] MEDS: methylPREDNISolone SOD SUCCI 40 MG/ML 1 ML VIAL IV SCH ×4 (00:03→23:51)
[2016-07-05 07:47] LABS: Glucose,Whole Blood 138 mg/dL (75-99)
[2016-07-05] MEDS: SYMBICORT 80-4.5 MCG INHALER INHALATION SCH ×2 (08:03→20:33)
[2016-07-05] MEDS: IPRATROPIUM-ALBUTEROL 3 ML NEB INHALATION SCH ×4 (08:03→20:33)
[2016-07-05] MEDS: SPIRONOLACTONE 25 MG TAB PO SCH (08:14)
[2016-07-05] MEDS: APIXABAN 2.5 MG TABLET PO SCH ×2 (08:15→20:09)
[2016-07-05] MEDS: guaiFENesin 600 MG TABLET.ER PO SCH ×2 (08:15→20:09)
[2016-07-05] MEDS: CHOLECALCIFEROL 1,000 UNIT TAB PO SCH (08:15)
[2016-07-05] MEDS: METOPROLOL TARTRATE 50 MG TAB PO SCH ×2 (08:15→20:09)
[2016-07-05] MEDS: INSULIN LISPRO (humaLOG) 300 UNIT/3 ML VIAL SQ SCH ×4 (08:19→21:19)
[2016-07-05 09:45] LABS: Calcium 9.6 mg/dL (8.4-10.2); Potassium 4.1 mmol/L (3.5-5.1)
[2016-07-05 12:06] LABS: Glucose,Whole Blood 111 mg/dL (75-99)
[2016-07-05] MEDS: AZITHROMYCIN 500 MG in SODIUM CHLORIDE 0.9% 250 ML IVPB SCH (14:27)
--- NOTE | 2016-07-05 15:31 | P.CNPUL ---
History of Present Illness Consult date: 07/05/16 Reason for consult: dyspnea, cough, COPD Chief complaint: Shortness of breath and cough History of present illness: 81-year-old female with a history of cough and shortness of breath. The going on for about 10 days prior to admission. Getting worse. In addition, she is wheezing. She's coughing up greenish brownish phlegm. Not coughing up any blood. No fever no chills chills. No chest pain or chest discomfort. The patient has been using her nebulizer machine at home. She is feeling generally better. He smoked number of years. We figure she smoked 57 years at about a pack a day. The patient gave up smoking a while back. Anyway the patient is quite short of breath as mentioned above. Review of Systems A 12 point review of system is positive for cough and shortness of breath under the pulmonary system. The rest of the 12 point review of system is unremarkable. The patient does feel much better today compared to yesterday. Past Medical History Past Medical History: Atrial Fibrillation, COPD, Hearing Disorder / Deafness, Hypertension, Respiratory Disorder Additional Past Medical History / Comment(s): Generalized anxiety disorder, chronic kidney disease stage III. hearing impaired History of Any Multi-Drug Resistant Organisms: None Reported Past Surgical History: Adenoidectomy, Appendectomy, Hysterectomy, Orthopedic Surgery, Tonsillectomy Additional Past Surgical History / Comment(s): Right knee arthroscopy for torn meniscus. Colonoscopies x 3 total. Bilateral eyelid surgery. Past Anesthesia/Blood Transfusion Reactions: No Reported Reaction Additional Past Anesthesia/Blood Transfusion Reaction / Comment(s): Pt has never recieved blood. Past Psychological History: Anxiety Additional Psychological History / Comment(s): Pt is . She lives alone in her single level home in [facility][1]. She is very independent. She rides bicycle and is an avid bowler. She drives a car. She has a niece that lives nearby if she needs someone. She shovels her own driveway. Smoking Status: Former smoker Past Alcohol Use History: Occasional Additional Past Alcohol Use History / Comment(s): Patient was a smoker one pack per day 54 years. She quit 12 years ago. She drinks alcohol daily 1-2 drinks if she is at home. 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 She has no pets in the home. Past Drug Use History: None Reported - Past Family History Father Family Medical History: Cancer Additional Family Medical History / Comment(s): Father at age 77yrs of cancer which pt believes may have started in his throat. Mother Family Medical History: Dementia Additional Family Medical History / Comment(s): Mother at age 95yrs. She was very healthy most of her life- she had dementia at the very end of her life. Medications and Allergies Home Medications Medication Instructions Recorded Confirmed Type Albuterol Inhaler [Ventolin Hfa 1 - 2 puff INHALATION RT-Q6H PRN 03/25/16 History Inhaler] Cholecalciferol [Vitamin D3] 4,000 unit PO DAILY 03/25/16 07/03/16 History Fluticasone/Salmeterol [Advair 1 puff INHALATION RT-BID 03/25/16 07/03/16 History 250-50 Diskus] LORazepam [Ativan] 1 mg PO BID PRN 03/25/16 07/03/16 History Tiotropium 18 Mcg/Puff [Spiriva] 1 cap INHALATION RT-DAILY 03/25/16 07/03/16 History Amiodarone [Cordarone] 200 mg PO DAILY 07/03/16 07/03/16 History Apixaban [Eliquis] 2.5 mg PO BID 07/03/16 07/03/16 History Allergies Allergy/AdvReac Type Severity Reaction Status Date / Time cefuroxime axetil AdvReac Unknown Verified 07/03/16 14:06 [From Ceftin] Physical Exam Osteopathic Statement: *. No significant issues noted on an osteopathic structural exam other than those noted in the History and Physical/Consult. Vitals: Vital Signs Temp Pulse Pulse Pulse Resp BP Pulse Ox 07/05/16 11:47 72 07/05/16 11:37 70 07/05/16 08:13 72 07/05/16 08:03 70 07/05/16 07:00 97.0 F L 65 20 139/71 94 L 07/04/16 22:58 97.1 F L 83 16 116/60 94 L 07/04/16 20:54 72 07/04/16 20:36 72 07/04/16 16:00 71 18 Intake and Output 07/05/16 07/05/16 07/05/16 06:59 14:59 22:59 Intake Total 480 Balance 480 Intake: Oral 480 Other: # Voids 2 No acute distress, oriented 3. Not receiving any supplemental oxygen. HEENT examination is grossly unremarkable. Mucous membranes are moist. Neck supple. Full range of motion. No adenopathy or thyromegaly. Neck veins are flat. Cardiovascular examination reveals regular rhythm rate. S2 normal. No S3-S4 or murmur. Lungs reveal mostly clear breath sounds. No wheezes rhonchi or crackles. Breath sounds are diminished. Abdomen soft bowel sounds are heard. Extremities are intact. No cyanosis clubbing or edema. Skin examination is without lesion or rash. Neurologic examination is brief but nonfocal. Results - Laboratory Findings CBC and BMP: 07/03/16 13:44 07/05/16 08:59 PT/INR, D-dimer PT 11.2 sec (9.0-12.0) 07/03/16 13:44 INR 1.1 (<1.1) 07/03/16 13:44 Abnormal lab findings: Abnormal Labs 07/04/16 07/04/16 07/05/16 16:47 20:26 07:23 Carbon Dioxide BUN Creatinine Glucose POC Glucose (mg/dL) 181 H 202 H 138 H 07/05/16 07/05/16 08:59 11:42 Carbon Dioxide 20 L BUN 32 H Creatinine 1.14 H Glucose 243 H POC Glucose (mg/dL) 111 H - Diagnostic Findings Chest x-ray: image reviewed (Chest x-ray labs and medications are all reviewed. The patient was examined and interviewed.) Assessment and Plan (1) Acute exacerbation of chronic obstructive pulmonary disease (COPD) Status: Acute (2) Bronchitis Status: Acute (3) Bronchospasm, acute Status: Acute (4) Acute bronchospasm Status: Acute (5) Bronchitis Status: Acute (6) COPD (chronic obstructive pulmonary disease) Status: Acute (7) Hx of nicotine dependence Status: Acute Plan: Plan dated 07/05/2016 The patient should be placed on usual medications for COPD including short acting beta agonist, short acting muscarinic antagonist, long-acting beta agonist, and inhaled corticosteroids. In addition, the patient should placed on systemic corticosteroids. The patient would probably benefit from an oral antibiotic. Additional recommendations suggestions are forthcoming. We'll continue to follow. Chest x-ray stable. Prognosis is guarded. Time with Patient: Greater than 30
[2016-07-05 17:28] LABS: Glucose,Whole Blood 129 mg/dL (75-99)
[2016-07-05 21:15] LABS: Glucose,Whole Blood 170 mg/dL (75-99)
[2016-07-05] MEDS: MELATONIN 3 MG TABLET PO SCH (21:53)
[2016-07-05] MEDS: LORazepam 1 MG TAB PO PRN (21:54)
[2016-07-06 00:53] VITALS: RESP 16
--- NOTE | 2016-07-06 06:23 | PN ---
DATE OF SERVICE: 07/05/2016 PRESENTING COMPLAINT: Short of breath, cough. INTERVAL HISTORY: This patient was admitted with COPD exacerbation, acute tracheobronchitis, also acute renal failure. Breathing is much better. ( ) actually improved. Tolerating a diet. Review of system done for constitutional, cardiovascular, GI, pulmonary; relevant findings as above. Current medications are reviewed that include nebulized bronchodilator, IV steroids. On examination, temperature 96.9, pulse 68, respirations 20, blood pressure 131/66, pulse ox 96% on room air. GENERAL APPEARANCE: Sitting up, not in distress. EYES: Pupils equal. Conjunctivae normal. NECK: JVD not raised. Mass not palpable. RESPIRATORY: Effort normal. LUNGS: Diminished breath sounds. CARDIOVASCULAR: First and second sounds normal. No edema. ABDOMEN: Soft, nontender. Liver and spleen not palpable. PSYCHIATRY: Alert and oriented x3. Mood and affect normal INVESTIGATIONS: Potassium 4.1. BUN 32, creatinine 1.14. Bicarb is 20. ASSESSMENT: 1. Acute severe chronic obstructive pulmonary disease exacerbation in an ex-smoker from acute tracheobronchitis with clinical improvement. 2. 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 3. Acute renal failure, probably prerenal from patient being on diuretics, acute components improving. 4. Chronic congestive heart failure from systolic dysfunction, underlying coronary artery disease, ejection fraction 40%. 5. Persistent atrial fibrillation. 6. Moderate tricuspid regurgitation, nonrheumatic. 7. 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 8. Coronary artery disease with nonobstructive lesion in the left anterior descending artery. PLAN: Patient overall doing much better. Will resume patient's Lasix tomorrow morning. Care was discussed with the patient. Hopefully patient can be discharge tomorrow.
[2016-07-06] MEDS: IPRATROPIUM-ALBUTEROL 3 ML NEB INHALATION SCH ×2 (07:20→11:30)
[2016-07-06] MEDS: SYMBICORT 80-4.5 MCG INHALER INHALATION SCH (07:20)
[2016-07-06 07:24] LABS: Glucose,Whole Blood 133 mg/dL (75-99)
[2016-07-06 07:33] VITALS: BP 141/76; TEMP 97.5
[2016-07-06] MEDS: INSULIN LISPRO (humaLOG) 300 UNIT/3 ML VIAL SQ SCH ×2 (08:05→13:07)
[2016-07-06] MEDS: AMIODARONE 200 MG TAB PO SCH (08:06)
[2016-07-06] MEDS: methylPREDNISolone SOD SUCCI 40 MG/ML 1 ML VIAL IV SCH (08:06)
[2016-07-06] MEDS: APIXABAN 2.5 MG TABLET PO SCH (08:06)
[2016-07-06] MEDS: SPIRONOLACTONE 25 MG TAB PO SCH (08:06)
[2016-07-06] MEDS: METOPROLOL TARTRATE 50 MG TAB PO SCH (08:06)
[2016-07-06] MEDS: CHOLECALCIFEROL 1,000 UNIT TAB PO SCH (08:06)
[2016-07-06] MEDS: guaiFENesin 600 MG TABLET.ER PO SCH (08:07)
[2016-07-06] MEDS ORDERED: AZITHROMYCIN 500 MG TAB PO SCH (09:00)
[2016-07-06 09:32] LABS: Calcium 9.7 mg/dL (8.4-10.2); Potassium 4.7 mmol/L (3.5-5.1)
[2016-07-06 11:41] VITALS: PULSE 68
[2016-07-06 12:31] LABS: Glucose,Whole Blood 101 mg/dL (75-99)
--- NOTE | 2016-07-10 19:18 | DS ---
DATE OF ADMISSION: 07/03/2016 DATE OF DISCHARGE: 07/06/2016 FINAL DIAGNOSIS(ES): 1. Acute severe chronic obstructive pulmonary disease exacerbation in an ex-smoker from acute tracheobronchitis. 2. 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 3. Acute renal failure, probably prerenal from the patient being on diuretics. 4. Chronic congestive heart failure from systolic dysfunction; ejection fraction 40%, underlying coronary artery disease. 5. Atrial fibrillation. 6. Moderate tricuspid regurgitation, nonrheumatic secondary to pulmonary hypertension secondary to severe chronic obstructive pulmonary disease. 7. Coronary artery disease with nonobstructive lesion in the left anterior descending coronary artery. HOSPITAL COURSE: This patient presented with COPD exacerbation and doing better at the time of discharge. ( ) nebulized bronchodilators, steroids. Patient's creatinine was 1.6 on presentation, did come down to 1.15 at time of discharge. On exam, lungs improved air entry. CARDIOVASCULAR: First and second sounds normal. CONSULTATIONS: Dr. Torres from pulmonary. DISCHARGE MEDICATIONS: 1. Ventolin HFA 1 to 2 puffs q.6 p.r.n. 2. Vitamin D3 1000 units p.o. daily. 3. Advair Diskus 250, 1 puff daily. 4. Ativan 1 mg p.o. b.i.d. p.r.n. 5. Melatonin 3 mg at bedtime. 6. Lopressor 50 mg p.o. b.i.d. 7. Aldactone 25 mg p.o. daily. 8. Cordarone 200 mg p.o. daily. 9. Eliquis 2.5 mg p.o. b.i.d. 10. Zithromax 500 mg p.o. 3 tablets. 11. Lasix 40 mg p.o. Sunday, Sunday and Sunday. 12. DuoNeb q.i.d. Follow-up with Dr. Alcantar on 07/13/2016, follow-up with Dr. Pagan on 07/11/2016. Follow-up with Dr. Crouch in one week. BMP in one week. On exam, lungs improved air entry. CARDIOVASCULAR: First and second sounds normal. DC planning more than 35 minutes.
== END 2016-07-06 13:56 | disposition home or self-care (01) | DRG 191 ==
LOC: EC 12:59 → 4MS4W 15:02
PROVIDERS: ADMIT Hospitalist; ATTEND Hospitalist
DX: J44.0 Chronic obstructive pulmonary disease with (acute) lower respiratory infection (principal); I13.0 Hypertensive heart and chronic kidney disease with heart failure and stage 1 through stage 4 chronic kidney disease, or unspecified chronic kidney disease; N17.9 Acute kidney failure, unspecified; I27.2 Other secondary pulmonary hypertension; I50.22 Chronic systolic (congestive) heart failure; I48.1 Persistent atrial fibrillation; J44.1 Chronic obstructive pulmonary disease with (acute) exacerbation; N18.3 Chronic kidney disease, stage 3 (moderate); J20.9 Acute bronchitis, unspecified; E86.0 Dehydration; I36.1 Nonrheumatic tricuspid (valve) insufficiency; I25.10 Atherosclerotic heart disease of native coronary artery without angina pectoris; M19.91 Primary osteoarthritis, unspecified site; F41.1 Generalized anxiety disorder; F41.9 Anxiety disorder, unspecified; H91.90 Unspecified hearing loss, unspecified ear; Z87.891 Personal history of nicotine dependence; Z79.01 Long term (current) use of anticoagulants; Z79.899 Other long term (current) drug therapy
CPT/HCPCS: 36415; 71020; 80048; 80053; 82550; 82553; 84484; 85025; 85610; 85730; 87040; 87070; 87077; 87186; 87205; 87502; 93005; 94640; 94760; 96365; 96366; 96375; 99285

== ENCOUNTER 2016-08-19 13:32 | Inpatient (IN) | payer MEDICARE, BC ==
[2016-08-19] MEDS ORDERED: SODIUM CHLORIDE 0.9% 1,000 ML IV STA ×2 (14:03)
[2016-08-19] MEDS ORDERED: LEVOFLOXACIN 750MG-D5W PMX 750 MG in DEXTROSE/WATER 1 150ML.BAG IVPB STA ×2 (14:03→15:21)
[2016-08-19] MEDS ORDERED: IPRATROPIUM 0.5 MG/2.5 ML NEBU INHALATION STA (14:03)
[2016-08-19] MEDS ORDERED: SODIUM CHLORIDE 0.9% 500 ML IV STA (14:03)
[2016-08-19] MEDS ORDERED: ALBUTEROL NEBULIZED 2.5 MG/3 ML INHALATION STA (14:03)
[2016-08-19] MEDS ORDERED: ACETAMINOPHEN TAB 500 MG TAB PO STA (14:03)
[2016-08-19] MEDS ORDERED: IBUPROFEN 800 MG TAB PO STA (14:03)
--- NOTE | 2016-08-19 14:08 | ED ---
General Adult HPI - General Chief complaint: Shortness of Breath Stated complaint: SOB Time Seen by Provider: 08/19/16 14:02 Source: patient, RN notes reviewed, old records reviewed Mode of arrival: wheelchair Limitations: no limitations - History of Present Illness Initial comments: This is an 81-year-old female the ER for evaluation. This patient is urinary for evaluation of shortness of breath cough and congestion history of COPD history of atrial fib history of heart disease. Patient denies chest pain with this occasional chest tightness worse which takes deep breath worse when she coughs. She admits to fever for one day shortness of breath for 3 days. No sick contacts or travel history. She is doing. She was at home with no help. She took her oxygen at home and was 72% today. She thought that was pretty worrisome given the emergency room at this time she is improving with supplemental oxygen, but still complains of shortness of breath and cough. Feels weak - Related Data Home Medications Medication Instructions Recorded Confirmed Albuterol Inhaler [Ventolin Hfa 2 puff INHALATION RT-QID PRN 03/25/16 08/19/16 Inhaler] Fluticasone/Salmeterol [Advair 1 puff INHALATION RT-BID 03/25/16 08/19/16 250-50 Diskus] LORazepam [Ativan] 1 mg PO BID PRN 03/25/16 08/19/16 Amiodarone [Cordarone] 200 mg PO DAILY 07/03/16 08/19/16 Apixaban [Eliquis] 2.5 mg PO BID 07/03/16 08/19/16 Furosemide [Lasix] 40 mg PO DAILY 08/19/16 08/19/16 Tiotropium 18 Mcg/Puff [Spiriva] 1 cap INHALATION RT-DAILY 08/19/16 08/19/16 Previous Rx's Medication Instructions Recorded Metoprolol Tartrate [Lopressor] 50 mg PO BID #60 tab 03/30/16 Ipratropium-Albuterol Nebulize 3 ml INHALATION RT-QID #120 07/06/16 [Duoneb 0.5 mg-3 mg/3 ml Soln] ampul.neb Allergies Allergy/AdvReac Type Severity Reaction Status Date / Time cefuroxime axetil Allergy Unknown Verified 08/19/16 15:08 [From Ceftin] Review of Systems ROS Statement: Those systems with pertinent positive or pertinent negative responses have been documented in the HPI. ROS Other: All systems not noted in ROS Statement are negative. Past Medical History Past Medical History: Atrial Fibrillation, COPD, Hearing Disorder / Deafness, Hypertension, Respiratory Disorder Additional Past Medical History / Comment(s): Generalized anxiety disorder, chronic kidney disease stage III. hearing impaired History of Any Multi-Drug Resistant Organisms: None Reported Past Surgical History: Adenoidectomy, Appendectomy, Hysterectomy, Orthopedic Surgery, Tonsillectomy Additional Past Surgical History / Comment(s): Right knee arthroscopy for torn meniscus. Colonoscopies x 3 total. Bilateral eyelid surgery. Past Anesthesia/Blood Transfusion Reactions: No Reported Reaction Additional Past Anesthesia/Blood Transfusion Reaction / Comment(s): Pt has never recieved blood. Past Psychological History: Anxiety Additional Psychological History / Comment(s): Pt is . She lives alone in her single level home in [facility]. She is very independent. She rides bicycle and is an avid bowler. She drives a car. She has a niece that lives nearby if she needs someone. She shovels her own driveway. Smoking Status: Former smoker Past Alcohol Use History: Occasional Additional Past Alcohol Use History / Comment(s): Patient was a smoker one pack per day 54 years. She quit 12 years ago. She drinks alcohol daily 1-2 drinks if she is at home. 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 She has no pets in the home. Past Drug Use History: None Reported - Past Family History Father Family Medical History: Cancer Additional Family Medical History / Comment(s): Father at age 77yrs of cancer which pt believes may have started in his throat. Mother Family Medical History: Dementia Additional Family Medical History / Comment(s): Mother at age 95yrs. She was very healthy most of her life- she had dementia at the very end of her life. General Exam Limitations: no limitations General appearance: alert, in no apparent distress Head exam: Present: atraumatic, normocephalic, normal inspection Eye exam: Present: normal appearance, PERRL, EOMI. Absent: scleral icterus, conjunctival injection, periorbital swelling ENT exam: Present: normal exam, mucous membranes moist Neck exam: Present: normal inspection. Absent: tenderness, meningismus, lymphadenopathy Respiratory exam: Present: wheezes, accessory muscle use, decreased breath sounds, prolonged expiratory. Absent: respiratory distress, rales, rhonchi, stridor Cardiovascular Exam: Present: regular rate, normal rhythm, normal heart sounds. Absent: systolic murmur, diastolic murmur, rubs, gallop, clicks GI/Abdominal exam: Present: soft, normal bowel sounds. Absent: distended, tenderness, guarding, rebound, rigid Extremities exam: Present: normal inspection, full ROM, normal capillary refill. Absent: tenderness, pedal edema, joint swelling, calf tenderness Back exam: Present: normal inspection Neurological exam: Present: alert, oriented X3, CN II-XII intact Psychiatric exam: Present: normal affect, normal mood Skin exam: Present: warm, dry, intact, normal color. Absent: rash Course Vital Signs 08/19/16 08/19/16 08/19/16 13:36 13:53 13:54 Temperature 100.4 F H Pulse Rate 63 60 Respiratory 20 24 18 Rate Blood Pressure 140/61 123/58 O2 Sat by Pulse 88 L 96 Oximetry 08/19/16 08/19/16 08/19/16 14:21 14:35 14:50 Temperature Pulse Rate 60 60 62 Respiratory 18 Rate Blood Pressure 129/63 O2 Sat by Pulse 98 Oximetry 08/19/16 08/19/16 15:04 15:18 Temperature Pulse Rate 69 78 Respiratory Rate Blood Pressure O2 Sat by Pulse Oximetry - Reevaluation(s) Reevaluation #1: 08/19/16 15:26 Patient has great improvement of breathing treatment, no chest pain at this time EKG Findings - EKG Comments: EKG Findings:: EKG shows normal sinus rhythm rate of 62, [place] 1:30, QRS 100, QTC 369 Medical Decision Making - Medical Decision Making 81 female here with 3 days of shortness of breath one day of fever and increased cough history of COPD positive pneumonia. Patient admitted for IV antibiotic. She was. Patient also dehydrated, has occasional chest tightness and elevated troponin. Patient be anticoagulated and admitted for cardiology evaluation. - Lab Data Result diagrams: 08/19/16 13:50 08/19/16 13:50 Lab Results 06/03/17 06/03/17 06/03/17 Range/Units 13:50 13:50 13:50 WBC 6.1 (3.8-10.6) k/uL RBC 4.68 (3.80-5.40) m/uL Hgb 14.9 (11.4-16.0) gm/dL Hct 46.8 H (34.0-46.0) % MCV 99.9 (80.0-100.0) fL MCH 31.9 (25.0-35.0) pg MCHC 31.9 (31.0-37.0) g/dL RDW 13.8 (11.5-15.5) % Plt Count 167 (150-450) k/uL Neutrophils % 86 % Lymphocytes % 5 % Monocytes % 5 % Eosinophils % 0 % Basophils % 2 % Neutrophils # 5.2 (1.3-7.7) k/uL Lymphocytes # 0.3 L (1.0-4.8) k/uL Monocytes # 0.3 (0-1.0) k/uL Eosinophils # 0.0 (0-0.7) k/uL Basophils # 0.1 (0-0.2) k/uL PT (9.0-12.0) sec INR (<1.1) APTT (22.0-30.0) sec Sodium 138 (137-145) mmol/L Potassium 4.3 (3.5-5.1) mmol/L Chloride 96 L (98-107) mmol/L Carbon Dioxide 28 (22-30) mmol/L Anion Gap 14 mmol/L BUN 23 H (7-17) mg/dL Creatinine 1.28 H (0.52-1.04) mg/dL Est GFR (MDRD) Af Amer 48 (>60 ml/min/1.73 sqM) Est GFR (MDRD) Non-Af 40 (>60 ml/min/1.73 sqM) Glucose 152 H (74-99) mg/dL Calcium 9.5 (8.4-10.2) mg/dL Magnesium 1.7 (1.6-2.3) mg/dL Total Bilirubin 1.2 (0.2-1.3) mg/dL AST 34 (14-36) U/L ALT 37 (9-52) U/L Alkaline Phosphatase 72 (38-126) U/L Total Creatine Kinase 117 (30-135) U/L CK-MB (CK-2) 3.2 H* (0.0-2.4) ng/mL CK-MB (CK-2) Rel Index 2.7 Troponin I 0.194 H* (0.000-0.034) ng/mL NT-Pro-B Natriuret Pep pg/mL Total Protein 7.8 (6.3-8.2) g/dL Albumin 5.1 H (3.5-5.0) g/dL 08/19/16 08/19/16 Range/Units 13:50 14:20 WBC (3.8-10.6) k/uL RBC (3.80-5.40) m/uL Hgb (11.4-16.0) gm/dL Hct (34.0-46.0) % MCV (80.0-100.0) fL MCH (25.0-35.0) pg MCHC (31.0-37.0) g/dL RDW (11.5-15.5) % Plt Count (150-450) k/uL Neutrophils % % Lymphocytes % % Monocytes % % Eosinophils % % Basophils % % Neutrophils # (1.3-7.7) k/uL Lymphocytes # (1.0-4.8) k/uL Monocytes # (0-1.0) k/uL Eosinophils # (0-0.7) k/uL Basophils # (0-0.2) k/uL PT 12.4 H (9.0-12.0) sec INR 1.3 (<1.1) APTT 24.8 (22.0-30.0) sec Sodium (137-145) mmol/L Potassium (3.5-5.1) mmol/L Chloride (98-107) mmol/L Carbon Dioxide (22-30) mmol/L Anion Gap mmol/L BUN (7-17) mg/dL Creatinine (0.52-1.04) mg/dL Est GFR (MDRD) Af Amer (>60 ml/min/1.73 sqM) Est GFR (MDRD) Non-Af (>60 ml/min/1.73 sqM) Glucose (74-99) mg/dL Calcium (8.4-10.2) mg/dL Magnesium (1.6-2.3) mg/dL Total Bilirubin (0.2-1.3) mg/dL AST (14-36) U/L ALT (9-52) U/L Alkaline Phosphatase (38-126) U/L Total Creatine Kinase (30-135) U/L CK-MB (CK-2) (0.0-2.4) ng/mL CK-MB (CK-2) Rel Index Troponin I (0.000-0.034) ng/mL NT-Pro-B Natriuret Pep 2480 pg/mL Total Protein (6.3-8.2) g/dL Albumin (3.5-5.0) g/dL - Radiology Data Radiology results: report reviewed (Chest x-ray two-view does show likely pneumonia), image reviewed Critical Care Time Critical Care Time: Yes Total Critical Care Time: 31 Disposition Clinical Impression: COPD (chronic obstructive pulmonary disease), Dehydration, Acute kidney injury , Acute exacerbation of chronic obstructive pulmonary disease (COPD), Community acquired pneumonia, NSTEMI (non-ST elevated myocardial infarction), Fever, Hypoxia Disposition: ADMITTED IP TO THIS HOSP Condition: Serious Referrals: Raulito Alcantar DO [Primary Care Provider] - 1-2 days
[2016-08-19 14:14] LABS: Basophils # (A) 0.1 k/uL (0-0.2); Basophils % (A) 2 %; CH 32.4; CHCM 32.6; Eosinophils % (A) 0 %; HCT 46.8 % (34.0-46.0); HDW 2.78; HGB 14.9 gm/dL (11.4-16.0); Luc # (Auto) 0.13; Luc % (Auto) 2; Lymphocytes # (A) 0.3 k/uL (1.0-4.8); Lymphocytes % (A) 5 %; MCH 31.9 pg (25.0-35.0); MCHC 31.9 g/dL (31.0-37.0); MCV 99.9 fL (80.0-100.0); Mean Platelet Volume 7.9; Monocytes # (A) 0.3 k/uL (0-1.0); Monocytes % (A) 5 %; Neutrophils # (A) 5.2 k/uL (1.3-7.7); Neutrophils % (A) 86 %; RBC 4.68 m/uL (3.80-5.40); RDW 13.8 % (11.5-15.5); WBC 6.1 k/uL (3.8-10.6); WBC (Perox) 6.06
[2016-08-19 14:23] LABS: Calcium 9.5 mg/dL (8.4-10.2); Magnesium 1.7 mg/dL (1.6-2.3); Potassium 4.3 mmol/L (3.5-5.1); Total Bilirubin 1.2 mg/dL (0.2-1.3); Total Protein 7.8 g/dL (6.3-8.2)
--- NOTE | 2016-08-19 14:29 | XR ---
EXAMINATION TYPE: XR chest 2V DATE OF EXAM: 08/19/2016 2:16 PM COMPARISON: 07/03/2016 HISTORY: Short of breath TECHNIQUE: Frontal and lateral views of the chest are obtained. FINDINGS: Heart and mediastinum are normal. There is mild pulmonary hyperinflation. There are no hil ar masses. There are chest leads. There is slight coarsening of interstitial markings. Bony thorax is intact. IMPRESSION: There is evidence for mild COPD and pulmonary fibrosis. No acute lung disease. No change .
[2016-08-19 14:46] LABS: INR 1.3 (<1.1); Partial Thromboplastin Time 24.8 sec (22.0-30.0); Prothrombin Time 12.4 sec (9.0-12.0)
[2016-08-19 14:47] LABS: Creatine Kinase MB 3.2 ng/mL (0.0-2.4); Troponin I 0.194 ng/mL (0.000-0.034)
[2016-08-19] MEDS ORDERED: ASPIRIN 81 MG CHEW PO STA (15:18)
[2016-08-19] MEDS ORDERED: NITROGLYCERIN SL TABS 0.4 MG TAB SUBLINGUAL PRN (15:18)
[2016-08-19] MEDS ORDERED: HEPARIN SODIUM,PORCINE 5,000 UNIT/ML 1 ML VIAL IV ONE (15:18)
[2016-08-19] MEDS ORDERED: HEPARIN SODIUM,PORCINE 5,000 UNIT/ML 1 ML VIAL IV PRN (15:18)
[2016-08-19] MEDS ORDERED: methylPREDNISolone SOD SUCCI 125 MG/2 ML VIAL IV STA (15:21)
[2016-08-19] MEDS ORDERED: IBUPROFEN 600 MG TAB PO PRN (15:23)
[2016-08-19] MEDS ORDERED: ACETAMINOPHEN TAB 325 MG TAB PO PRN (15:23)
[2016-08-19] MEDS ORDERED: HEPARIN SODIUM,PORCINE/D5W PMX 25,000 UNIT in DEXTROSE/WATER 1 500ML.BAG IV SCH (16:30)
[2016-08-19 17:09] LABS: Glucose,Whole Blood 139 mg/dL (75-99)
[2016-08-19] MEDS: methylPREDNISolone SOD SUCCI 40 MG/ML 1 ML VIAL IV SCH ×2 (17:25→23:58)
[2016-08-19] MEDS ORDERED: methylPREDNISolone SOD SUCCI 125 MG/2 ML VIAL IV SCH (18:00)
[2016-08-19 20:17] LABS: Creatine Kinase MB 4.1 ng/mL (0.0-2.4)
[2016-08-19 20:18] LABS: Troponin I 0.218 ng/mL (0.000-0.034)
[2016-08-19] MEDS: IPRATROPIUM-ALBUTEROL 3 ML NEB INHALATION SCH ×2 (20:26→23:42)
--- NOTE | 2016-08-19 20:43 | HP ---
DATE OF ADMISSION: 08/19/2016 PRESENTING COMPLAINT: Cough, fever. HISTORY OF PRESENTING COMPLAINT: This is a very pleasant 81-year-old patient with rather extensive medical history. Patient's chronic stable medical conditions include chronic kidney disease, congestive heart failure, coronary artery disease, atrial fibrillation, pulmonary hypertension, the patient sees Dr. Alcantar as a family doctor. Patient presented with 3 days of increasing cough, sputum production and very short of breath. Took pulse ox at home and it dropped down to 70s. Tired, rundown, having a fever. REVIEW OF SYSTEMS: CONSTITUTIONAL: Tired. HEENT: None. RESPIRATORY: As above. CARDIOVASCULAR: None. GASTROINTESTINAL: None. GENITOURINARY: None. MUSCULOSKELETAL: Pain in the joints. Dermatologic: None. HEMATOLOGIC: None. LYMPHATICS: None. PSYCHIATRY: None. NEUROLOGICAL: None. Past medical history of congestive heart failure, atrial fibrillation, arthritis, chronic kidney disease, COPD, moderate tricuspid regurgitation, secondary pulmonary hypertension, coronary artery disease. PAST SURGICAL HISTORY: Adenoidectomy, appendectomy, hysterectomy, orthopedic surgery, tonsillectomy, right knee arthroscopy for torn meniscus, bilateral eye surgery. SOCIAL HISTORY: The patient is . Still rides a bicycle, does bowling. Smoked for 54 years; quit about 12 years ago. Drinks anywhere from 1 to 2 alcohol drinks a day and ( ). FAMILY HISTORY: Father of throat cancer. HOME MEDICATIONS: 1. Spiriva 1 capsule daily. 2. Lopressor 50 p.o. b.i.d. 3. Ativan 1 mg p.o. b.i.d. p.r.n. 4. DuoNeb q.i.d. 5. Advair 250/50 1 puff b.i.d. 6. Eliquis 2.5 p.o. b.i.d. 7. Cordarone 200 mg p.o. daily. 8. Ventolin HFA 2 puffs q.i.d. p.r.n. ALLERGIES: CEFTIN. On examination temperature 100.4, pulse 58, respirations 22, blood pressure 94/54, pulse ox 93% on 2 L. Pulse ox 80% on room air. GENERAL APPEARANCE: Average build, sitting up, tired appearing. EYES: Pupils equal. Conjunctivae normal. HEENT: External appearance of nose and ears normal. Oral cavity normal. NECK: JVD not raised. Mass not palpable. RESPIRATORY: Effort increased. LUNGS: Diminished breath sounds. Prolonged expiration. CARDIOVASCULAR: First and second sounds normal. No edema. ABDOMEN: Soft, nontender. Liver and spleen not palpable. LYMPHATIC: No lymph nodes palpable in the neck or axilla. PSYCHIATRY: Alert and oriented x3. Mood and affect normal. NEUROLOGICAL: Pupils equal. Cranial nerves grossly intact. Power and sensation grossly intact. INVESTIGATIONS: White count 6.1, hemoglobin 14.9. Potassium 4.3, BUN 23, creatinine 1.28. Troponin 0.194. Chest x-ray reviewed. Some coarse markings. ASSESSMENT: 1. Acute severe chronic obstructive pulmonary disease exacerbation in an ex-smoker from acute tracheobronchitis. 2. 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 3. Chronic congestive heart failure from systolic dysfunction; ejection fraction 40%, underlying coronary artery disease. 4. Paroxysmal atrial fibrillation. 5. Moderate tricuspid regurgitation, nonrheumatic secondary to pulmonary hypertension secondary to chronic obstructive pulmonary disease. 6. Coronary artery disease with nonobstructive lesion in the left anterior descending artery. 7. Acute hypoxic respiratory failure, present at admission. PLAN: Patient will be put on nebulized bronchodilators, steroids, antibiotics. Home medications will be resumed. Care was discussed with the patient. This is not a primary cardiac event. The troponin leak is probably from patient being sick. Will follow.
[2016-08-19] MEDS: METOPROLOL TARTRATE 50 MG TAB PO SCH (21:18)
[2016-08-19] MEDS: APIXABAN 2.5 MG TABLET PO SCH (21:19)
[2016-08-19 21:21] LABS: Glucose,Whole Blood 215 mg/dL (75-99)
[2016-08-19] MEDS: LORazepam 1 MG TAB PO PRN (23:17)
[2016-08-20 02:45] LABS: Creatine Kinase MB 6.7 ng/mL (0.0-2.4); Troponin I 0.094 ng/mL (0.000-0.034)
[2016-08-20] MEDS: IPRATROPIUM-ALBUTEROL 3 ML NEB INHALATION SCH ×5 (03:47→21:14)
[2016-08-20 04:01] LABS: Cholesterol 139 mg/dL (<200); HDL Cholesterol 59 mg/dL (40-60); Triglycerides 48 mg/dL (<150)
[2016-08-20 05:52] LABS: Glucose,Whole Blood 152 mg/dL (75-99)
[2016-08-20] MEDS: INSULIN LISPRO (humaLOG) 300 UNIT/3 ML VIAL SQ SCH ×4 (06:26→21:09)
[2016-08-20] MEDS ORDERED: TIOTROPIUM 18 MCG/PUFF INHALER INHALATION SCH (08:00)
[2016-08-20] MEDS: AMIODARONE 200 MG TAB PO SCH (08:22)
[2016-08-20] MEDS: METOPROLOL TARTRATE 50 MG TAB PO SCH ×2 (08:22→21:08)
[2016-08-20] MEDS: methylPREDNISolone SOD SUCCI 40 MG/ML 1 ML VIAL IV SCH ×2 (08:22→16:29)
[2016-08-20] MEDS: FUROSEMIDE 40 MG TAB PO SCH (08:22)
[2016-08-20] MEDS: APIXABAN 2.5 MG TABLET PO SCH ×2 (08:22→21:08)
[2016-08-20] MEDS: ASPIRIN 81 MG CHEW PO SCH (08:22)
[2016-08-20 08:37] LABS: Calcium 9.1 mg/dL (8.4-10.2); Potassium 3.9 mmol/L (3.5-5.1)
[2016-08-20 08:44] LABS: Basophils % (A) 0 %; CH 32.3; CHCM 33.2; Eosinophils % (A) 0 %; HCT 41.5 % (34.0-46.0); HDW 2.96; HGB 13.6 gm/dL (11.4-16.0); Luc # (Auto) 0.03; Luc % (Auto) 1; Lymphocytes # (A) 0.4 k/uL (1.0-4.8); Lymphocytes % (A) 9 %; MCHC 32.8 g/dL (31.0-37.0); MCV 97.6 fL (80.0-100.0); Mean Platelet Volume 7.9; Monocytes # (A) 0.1 k/uL (0-1.0); Monocytes % (A) 1 %; Neutrophils # (A) 3.4 k/uL (1.3-7.7); Neutrophils % (A) 88 %; RBC 4.25 m/uL (3.80-5.40); RDW 13.3 % (11.5-15.5); WBC 3.9 k/uL (3.8-10.6)
[2016-08-20] MEDS ORDERED: ASPIRIN 325 MG TAB PO SCH (09:00)
[2016-08-20 11:59] LABS: Glucose,Whole Blood 181 mg/dL (75-99)
--- NOTE | 2016-08-20 12:35 | CONS ---
DATE OF CONSULTATION: CHIEF COMPLAINT: Elevated troponin. This is an 81-year-old lady with history of COPD, mild nonobstructive coronary artery disease, chronic renal insufficiency, paroxysmal atrial fibrillation and pulmonary hypertension, who presented to the hospital complaining of cough, sputum and shortness of breath. Cardiology has been consulted because of mild troponin elevation. At the time of my evaluation, she is comfortable at rest and is free of symptoms. The patient had a cardiac catheterization and an FFR of the lesion within the left anterior descending artery for which she was advised medical therapy in March of this year. The troponin elevation is of unclear clinical significance and it is at 0.1, 0.2 and 0.094. It could be due to supply demand mismatch associated with hypoxia from chronic obstructive pulmonary disease exacerbation. I reviewed her old records including the cath and FFR data. Past medical history is significant for COPD, hypertension, paroxysmal atrial fibrillation, coronary artery disease. MEDICATIONS: 1. Spiriva. 2. Lopressor 50 b.i.d. 3. Ativan. 4. Duoneb. 5. Lasix 40 daily. 6. Advair. 7. Eliquis 2.5 b.i.d. 8. Cardura 200 daily. 9. Ventolin. 10. Ceftin. FAMILY HISTORY: Negative for premature coronary artery disease. SOCIAL HISTORY: Negative for current smoking, EtOH abuse, or drug abuse. REVIEW OF SYSTEMS: HEENT: Unremarkable. CARDIAC: As described above. RESPIRATORY: As described above. GI: Negative. GENITOURINARY: Negative. Allergy/immunology: Negative. SKIN: Negative. MUSCULOSKELETAL: Significant for arthritis. PSYCHOSOCIAL: Negative. Dermatology: Negative. CONSTITUTIONAL: Negative. Oncological: Negative. The rest of the system review is not relevant. On exam, comfortable at rest. Vital signs are stable. There is no jugular venous distention. Chest exam reveals diminished air entry bilaterally with occasional rhonchi. Heart exam reveals first and second heart sounds. No gallop. No murmur. Abdomen is soft, nontender. Exam of the extremities did not reveal edema. Peripheral pulses are felt. Labs show a hemoglobin of 13.6, potassium is 3.9. Creatinine is 1. Troponins are elevated. LDL cholesterol is 70. EKG shows sinus rhythm with nonspecific ST-T wave changes. ASSESSMENT: 1. Non-ST segment elevation myocardial infarction. 2. Paroxysmal atrial fibrillation. 3. Chronic obstructive pulmonary disease exacerbation. 4. Hypertension. PLAN: The patient is doing well. Troponin elevation does not require any further evaluation. Will treat with optimal medical therapy. Hopefully can be discharged home over the next 1 to 2 days.
[2016-08-20 13:55] LABS: Hemoglobin A1C 5.6 % (4.2-6.1)
[2016-08-20] MEDS: LEVOFLOXACIN 750MG-D5W PMX 750 MG in DEXTROSE/WATER 1 150ML.BAG IVPB SCH (14:58)
[2016-08-20 17:36] LABS: Glucose,Whole Blood 120 mg/dL (75-99)
[2016-08-20] MEDS ORDERED: IPRATROPIUM-ALBUTEROL 3 ML NEB INHALATION PRN (18:39)
[2016-08-20 20:19] LABS: Glucose,Whole Blood 187 mg/dL (75-99)
[2016-08-20] MEDS: ATORVASTATIN 40 MG TAB PO SCH (21:08)
[2016-08-20] MEDS: LORazepam 1 MG TAB PO PRN (21:08)
[2016-08-21] MEDS: methylPREDNISolone SOD SUCCI 40 MG/ML 1 ML VIAL IV SCH ×3 (00:34→17:46)
--- NOTE | 2016-08-21 06:41 | PN ---
DATE OF SERVICE: 08/20/2016 PRESENTING COMPLAINT: Cough, fever. INTERVAL HISTORY: This patient presented with an acute severe COPD exacerbation. Patient is lying in bed, appears anxious. Some shortness of breath at rest noted. Patient is tolerating diet. Ambulatory with assistance to the bathroom. Review of systems done for constitutional, cardiovascular, GI, pulmonary with relevant findings as above. CURRENT MEDICATIONS: DuoNeb, Cordarone, Eliquis, aspirin, Lasix, Imdur, levofloxacin IV, Solu-Medrol, Lopressor. PHYSICAL EXAMINATION: VITAL SIGNS: Temperature 96.9, pulse 70, respirations 18, blood pressure 141/69, oxygen saturation 95% on 2 liters. GENERAL APPEARANCE: Patient appears anxious. Face has red rubor on cheeks as well as down on her neck. Patient has some noted shortness of breath. EYES: Pupils equal. Conjunctivae normal. NECK: JVD not raised. Mass not palpable. RESPIRATORY: Effort increased. LUNGS: Diminished breath sounds bilaterally. Prolonged expiration. CARDIOVASCULAR: First and second sounds noted. No edema. ABDOMEN: Soft, nontender. Liver and spleen not palpable. PSYCHIATRY: Alert and oriented x3. Patient appears anxious. INVESTIGATIONS: Accu-Cheks noted. Cardiology consult complete, will optimize with medical therapy. ASSESSMENT: 1. Acute severe chronic obstructive pulmonary disease exacerbation in an ex-smoker from acute tracheobronchitis, slow to respond. 2. 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 3. Chronic congestive heart failure from systolic dysfunction. Ejection fraction 40%, underlying coronary artery disease. 4. Paroxysmal atrial fibrillation, patient is now in sinus rhythm. 5. Moderate tricuspid regurgitation, nonrheumatic secondary to pulmonary hypertension secondary to chronic obstructive pulmonary disease. 6. Coronary artery disease with nonobstructive lesion to the left anterior descending artery. 7. Acute hypoxic respiratory failure, present at admission, improving. PLAN: Will continue current medication and treatment plan. Will follow closely. Patient was seen and examined by nurse practitioner, Seema Rios, and all elements of the case discussed with attending, Dr. Weller.
[2016-08-21] MEDS: IPRATROPIUM-ALBUTEROL 3 ML NEB INHALATION SCH ×4 (07:07→20:31)
[2016-08-21 07:28] LABS: Basophils % (A) 0 %; CH 31.7; CHCM 31.9; Eosinophils # (A) 0.1 k/uL (0-0.7); Eosinophils % (A) 1 %; HCT 44.5 % (34.0-46.0); HDW 2.86; HGB 14.1 gm/dL (11.4-16.0); Hypochromasia Slight; Luc # (Auto) 0.06; Luc % (Auto) 1; Lymphocytes # (A) 0.5 k/uL (1.0-4.8); Lymphocytes % (A) 4 %; MCH 31.6 pg (25.0-35.0); MCHC 31.6 g/dL (31.0-37.0); Mean Platelet Volume 8.1; Monocytes # (A) 0.3 k/uL (0-1.0); Monocytes % (A) 3 %; Neutrophils # (A) 10.9 k/uL (1.3-7.7); Neutrophils % (A) 92 %; RBC 4.45 m/uL (3.80-5.40); RDW 13.7 % (11.5-15.5); WBC 11.9 k/uL (3.8-10.6); WBC (Perox) 11.89
[2016-08-21 07:31] LABS: Glucose,Whole Blood 145 mg/dL (75-99)
[2016-08-21 07:55] LABS: Blood Urea Nitrogen 26 mg/dL (7-17); Calcium 9.6 mg/dL (8.4-10.2); Chloride 104 mmol/L (98-107); Glucose 150 mg/dL (74-99); Non-African American GFR(MDRD) 50 (>60 ml/min/1.73 sqM); Potassium 4.6 mmol/L (3.5-5.1); Sodium 143 mmol/L (137-145)
[2016-08-21] MEDS: INSULIN LISPRO (humaLOG) 300 UNIT/3 ML VIAL SQ SCH ×4 (07:59→21:03)
[2016-08-21] MEDS: LORazepam 1 MG TAB PO PRN ×2 (07:59→22:06)
[2016-08-21] MEDS: FUROSEMIDE 40 MG TAB PO SCH (08:00)
[2016-08-21] MEDS: METOPROLOL TARTRATE 50 MG TAB PO SCH ×2 (08:00→21:03)
[2016-08-21] MEDS: ASPIRIN 81 MG CHEW PO SCH (08:01)
[2016-08-21] MEDS: ISOSORBIDE MONONITRATE ER 30 MG TAB.ER.24H PO SCH (08:01)
[2016-08-21] MEDS: APIXABAN 2.5 MG TABLET PO SCH ×2 (08:01→21:03)
[2016-08-21] MEDS: AMIODARONE 200 MG TAB PO SCH (08:01)
[2016-08-21 09:11] LABS: Anion Gap 11 mmol/L; Carbon Dioxide 28 mmol/L (22-30)
--- NOTE | 2016-08-21 09:59 | PN ---
DATE OF SERVICE: 08/20/2016 ATTENDING NOTE: This patient was seen and examined by me on 08/20/2016. I reviewed the note of my nurse practitioner, Ms. Rios. Discussed additional findings as before. Patient presented with severe COPD exacerbation. Still short of breath, very anxious, did tolerate a diet. On examination, afebrile. LUNGS: Decreased breath sounds, wheezing. CARDIOVASCULAR: First and second sounds are normal. ASSESSMENT: 1. Acute severe chronic obstructive pulmonary disease exacerbation from acute tracheobronchitis slow to respond. 2. Acute non-ST elevation myocardial infarction per Cardiology, stable. PLAN: Continue current medication and treatment plan. Care was discussed with the patient, reassured. Steroids to continue. Patient is slow to respond.
[2016-08-21 11:08] VITALS: BMI 24.2
[2016-08-21 11:21] LABS: Glucose,Whole Blood 153 mg/dL (75-99)
[2016-08-21] MEDS: LEVOFLOXACIN 750MG-D5W PMX 750 MG in DEXTROSE/WATER 1 150ML.BAG IVPB SCH (14:36)
[2016-08-21 17:39] LABS: Glucose,Whole Blood 122 mg/dL (75-99)
--- NOTE | 2016-08-21 17:51 | P.CNPUL ---
History of Present Illness Consult date: 08/21/16 Reason for consult: dyspnea History of present illness: 81-year-old female patient with known history of COPD, with a baseline FEV1 of 47% of predicted maintained on a combination of Advair and Spiriva on outpatient basis. The patient was in the hospital in March 2016 admit for worsening shortness of breath and she was found to be in acute CHF with increased lower extremity edema and new onset atrial fibrillation with rapid ventricular response. She was treated with a Cardizem drip and ultimately she was switched to amiodarone and echocardiogram was done and showed that the patient has depressed ejection fraction of 20-25%. CT angios the chest that was done back then was negative. The patient was optimized in regards to her CHF and she was discharged home. In follow-up I saw this patient in my office and she was looking very well and she was not having any major respiratory distress. She was also on long-term anticoagulation using Eliquis. Subsequently the patient was rehospitalized on July 2016 for acute bronchitis and COPD exacerbation. During her hospital stay the patient had a kidney injury with her creatinine went up to 1.3 and subsequently it improved During this current hospitalization, the patient came into the hospital because of increased dyspnea. Cough. She had also increased sputum production and wheezing. Troponins were minimally elevated and there was evidence of troponin leak. The patient was hypoxic and she checked her pulse ox at home and was as low as 72%. Note that she does not have significant hypoxemia. Based on that she came into the hospital. She was seen by cardiology. Pulmonary was also placed on consult. The chest x-ray shows evidence of COPD and there is no evidence of an acute pneumonia at this point. There is increased coarse interstitial markings bilaterally. The patient's white cell count is not elevated. The patient's renal function is within normal limits. She is free of any chest pain. Review of Systems All systems: negative Constitutional: Denies chills, Denies fever Eyes: denies blurred vision, denies pain Ears, nose, mouth and throat: Denies headache, Denies sore throat Cardiovascular: Denies chest pain, Denies shortness of breath Respiratory: Reports cough, Reports cough with sputum, Reports dyspnea, Reports wheezing Gastrointestinal: Denies abdominal pain, Denies diarrhea, Denies nausea, Denies vomiting Genitourinary: Denies dysuria, Denies hematuria Musculoskeletal: Denies myalgias Integumentary: Denies pruritus, Denies rash Neurological: Denies numbness, Denies weakness Psychiatric: Denies anxiety, Denies depression Endocrine: Denies fatigue, Denies weight change Past Medical History Past Medical History: Atrial Fibrillation, Coronary Artery Disease (CAD), Heart Failure, COPD, Hearing Disorder / Deafness, Hypertension, Respiratory Disorder Additional Past Medical History / Comment(s): Generalized anxiety disorder, hearing impaired, generalized anxiety disorder, CHF with an ejection fraction of 20-25%, nonocclusive coronary artery disease, diverticulosis, paroxysmal atrial fibrillation, osteoarthritis, secondary pulmonary hypertension. History of Any Multi-Drug Resistant Organisms: None Reported Past Surgical History: Adenoidectomy, Appendectomy, Hysterectomy, Orthopedic Surgery, Tonsillectomy Additional Past Surgical History / Comment(s): Right knee arthroscopy for torn meniscus. Colonoscopies x 3 total. Bilateral eyelid surgery. Past Anesthesia/Blood Transfusion Reactions: No Reported Reaction Additional Past Anesthesia/Blood Transfusion Reaction / Comment(s): Pt has never recieved blood. Past Psychological History: Anxiety Additional Psychological History / Comment(s): Pt is . She lives alone in her single level home in [facility] [place]. She is very independent. She rides bicycle and is an avid bowler. She drives a car. She has a niece that lives nearby if she needs someone. She shovels her own driveway. Smoking Status: Former smoker Past Alcohol Use History: Occasional Additional Past Alcohol Use History / Comment(s): Patient was a smoker one pack per day 54 years. She quit 12 years ago. She drinks alcohol daily 1-2 drinks if she is at home. 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 She has no pets in the home. Past Drug Use History: None Reported - Past Family History Father Family Medical History: Cancer Additional Family Medical History / Comment(s): Father at age 77yrs of cancer which pt believes may have started in his throat. Mother Family Medical History: Dementia Additional Family Medical History / Comment(s): Mother at age 95yrs. She was very healthy most of her life- she had dementia at the very end of her life. Medications and Allergies Home Medications Medication Instructions Recorded Confirmed Type Albuterol Inhaler [Ventolin Hfa 2 puff INHALATION RT-QID PRN 03/25/16 08/19/16 History Inhaler] Fluticasone/Salmeterol [Advair 1 puff INHALATION RT-BID 03/25/16 08/19/16 History 250-50 Diskus] LORazepam [Ativan] 1 mg PO BID PRN 03/25/16 08/19/16 History Amiodarone [Cordarone] 200 mg PO DAILY 07/03/16 08/19/16 History Apixaban [Eliquis] 2.5 mg PO BID 07/03/16 08/19/16 History Furosemide [Lasix] 40 mg PO DAILY 08/19/16 08/19/16 History Tiotropium 18 Mcg/Puff [Spiriva] 1 cap INHALATION RT-DAILY 08/19/16 08/19/16 History Allergies Allergy/AdvReac Type Severity Reaction Status Date / Time cefuroxime axetil Allergy Unknown Verified 08/19/16 15:08 [From Ceftin] Physical Exam Vitals: Vital Signs Temp Pulse Pulse Pulse Resp BP Pulse Ox 08/21/16 16:00 60 79 18 08/21/16 15:49 76 08/21/16 15:40 68 08/21/16 15:00 96.1 F L 60 18 121/60 96 08/21/16 11:05 68 08/21/16 10:55 72 08/21/16 08:00 77 79 18 08/21/16 07:15 72 08/21/16 07:09 76 08/21/16 07:00 97.7 F 77 18 139/74 94 L 08/20/16 23:15 79 20 08/20/16 21:18 80 08/20/16 21:06 76 08/20/16 20:00 98.1 F 79 79 20 154/70 94 L Intake and Output 08/21/16 08/21/16 08/21/16 06:59 14:59 22:59 Intake Total 400 Output Total 150 Balance 400 -150 Intake: Oral 400 Output: Urine 150 Other: Voiding Method Toilet Toilet Toilet # Voids 1 3 3 Weight 70.2 kg 70.2 kg Patient Weight 08/22/16 06:59 Weight 70.2 kg Head exam was generally normal. There was no scleral icterus or corneal arcus. Mucous membranes were moist.Neck was supple and without jugular venous distension, thyromegaly, or carotid bruits. Carotids were easily palpable bilaterally. There was no adenopathy. Lung sounds are diminished bilaterally and there are some few scattered expiratory wheezes.Cardiac exam revealed the PMI to be normally situated and sized. The rhythm was regular and no extrasystoles were noted during several minutes of auscultation. The first and second heart sounds were normal and physiologic splitting of the second heart sound was noted. There were no murmurs, rubs, clicks, or gallops.Abdominal exam revealed normal bowel sounds. The abdomen was soft, non-tender, and without masses, organomegaly, or appreciable enlargement of the abdominal aorta.Examination of the extremities revealed easily palpable radial, femoral and pedal pulses. There was no cyanosis, clubbing or edema. Results - Laboratory Findings CBC and BMP: 08/21/16 07:12 08/21/16 07:12 PT/INR, D-dimer PT 12.4 sec (9.0-12.0) H 08/19/16 14:20 INR 1.3 (<1.1) 08/19/16 14:20 D-Dimer 0.25 mg/L FEU (<0.60) 08/19/16 14:20 Abnormal lab findings: Abnormal Labs 08/19/16 08/19/16 08/19/16 13:50 13:50 13:50 WBC Hct 46.8 H Plt Count Neutrophils # Lymphocytes # 0.3 L PT Chloride 96 L BUN 23 H Creatinine 1.28 H Glucose 152 H POC Glucose (mg/dL) Total Creatine Kinase CK-MB (CK-2) 3.2 H* Troponin I 0.194 H* Albumin 5.1 H 08/19/16 08/19/16 08/19/16 14:20 17:06 19:23 WBC Hct Plt Count Neutrophils # Lymphocytes # PT 12.4 H Chloride BUN Creatinine Glucose POC Glucose (mg/dL) 139 H Total Creatine Kinase 142 H CK-MB (CK-2) 4.1 H* Troponin I 0.218 H* Albumin 08/19/16 08/20/16 08/20/16 21:19 01:47 03:31 WBC Hct Plt Count 117 L Neutrophils # Lymphocytes # PT Chloride BUN Creatinine Glucose POC Glucose (mg/dL) 215 H Total Creatine Kinase 155 H CK-MB (CK-2) 6.7 H* Troponin I 0.094 H* Albumin 08/20/16 08/20/16 08/20/16 05:51 08:03 08:03 WBC Hct Plt Count 142 L Neutrophils # Lymphocytes # 0.4 L PT Chloride BUN 20 H Creatinine 1.07 H Glucose 163 H POC Glucose (mg/dL) 152 H Total Creatine Kinase CK-MB (CK-2) Troponin I Albumin 08/20/16 08/20/16 08/20/16 11:50 17:24 20:18 WBC Hct Plt Count Neutrophils # Lymphocytes # PT Chloride BUN Creatinine Glucose POC Glucose (mg/dL) 181 H 120 H 187 H Total Creatine Kinase CK-MB (CK-2) Troponin I Albumin 08/21/16 08/21/16 08/21/16 07:12 07:12 07:22 WBC 11.9 H Hct Plt Count Neutrophils # 10.9 H Lymphocytes # 0.5 L PT Chloride BUN 26 H Creatinine 1.06 H Glucose 150 H POC Glucose (mg/dL) 145 H Total Creatine Kinase CK-MB (CK-2) Troponin I Albumin 08/21/16 08/21/16 11:19 17:37 WBC Hct Plt Count Neutrophils # Lymphocytes # PT Chloride BUN Creatinine Glucose POC Glucose (mg/dL) 153 H 122 H Total Creatine Kinase CK-MB (CK-2) Troponin I Albumin - Diagnostic Findings Chest x-ray: image reviewed Assessment and Plan Plan: Assessment 1 acute COPD exacerbation/acute tracheal bronchitis. 2 moderate to severe COPD with a baseline FEV1 of 47% of predicted the patient is demented on a combination of Advair and Spiriva on outpatient basis. 3 CHF with an ejection fraction of 20-25% 4 nonocclusive coronary artery disease 5 troponin leak 6 proximity fibrillation 7 anxiety disorder 8 secondary pulmonary hypertension 9 diverticulosis 10 osteoarthritis Plan Continue DuoNeb neb last treatment [id number]. Continue IV Solu-Medrol. Continue Levaquin. Cardiac condition is stable. Troponin leak is nonspecific. CHF seems to be optimized at this point. Patient is improving. We'll continue to follow. Continue long-term and to coagulation also.
--- NOTE | 2016-08-21 20:35 | PN ---
DATE OF SERVICE: 08/21/2016 PRESENTING COMPLAINT: Cough and fever. INTERVAL HISTORY: This patient presented with an acute severe exacerbation of COPD. Today patient is lying in bed visiting with friends mild shortness of breath noted. Tolerating her diet. Ambulatory with assistance to the bathroom. Reviews of systems done for constitutional, cardiovascular, GI, pulmonary, with relevant findings as above. CURRENT MEDICATIONS: DuoNeb, Cordarone, Eliquis, aspirin, Lasix, Imdur, levofloxacin IV, Solu-Medrol, Lopressor. PHYSICAL EXAMINATION: VITAL SIGNS: Temperature is 97.7, pulse 77, respirations 18, blood pressure 139/74, oxygen saturation 94% on 3 liters. GENERAL APPEARANCE: Patient sitting at the bedside. No acute distress. EYES: Pupils equal. Conjunctivae normal. NECK: JVD raised. Mass not palpable. RESPIRATORY: Effort increased. LUNGS: Diminished breath sounds bilaterally. Prolonged expiration. CARDIOVASCULAR: First and second sounds noted. No edema. ABDOMEN: Soft, nontender. Liver and spleen not palpable. PSYCHIATRY: Alert and oriented x3. Patient appears less anxious today. INVESTIGATIONS: White blood cell count 1.9, BUN 26, creatinine 1.06, blood glucose noted. ASSESSMENT: 1. Acute severe chronic obstructive pulmonary disease exacerbation in an ex-smoker from acute tracheobronchitis, slow to respond. 2. Acute non-ST segment elevated myocardial infarction improving. 3. 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 4. Chronic congestive heart failure from systolic dysfunction ejection fraction 40%, underlying coronary artery disease. 5. Paroxysmal atrial fibrillation, patient is now in sinus rhythm. 6. Moderate tricuspid regurgitation nonrheumatic secondary to pulmonary hypertension secondary to chronic obstructive pulmonary disease. 7. Coronary artery disease and nonobstructive lesion to the left anterior descending artery. 8. Acute hypoxic respiratory failure, present at admission, improving. PLAN: We will continue current medication and treatment plan. Will follow closely. Patient was seen and examined by nurse practitioner, Seema Rios, and all elements of the case discussed with attending, Dr. Weller. I performed a history and physical examination of this patient and discussed the same with the dictator. I agree with the dictator's note. Any additional findings/opinions, etc. will be noted.
[2016-08-21 20:52] LABS: Glucose,Whole Blood 192 mg/dL (75-99)
[2016-08-21] MEDS: ATORVASTATIN 40 MG TAB PO SCH (21:02)
[2016-08-22] MEDS: methylPREDNISolone SOD SUCCI 40 MG/ML 1 ML VIAL IV SCH ×3 (00:40→16:59)
[2016-08-22 07:22] LABS: Glucose,Whole Blood 129 mg/dL (75-99)
[2016-08-22] MEDS: IPRATROPIUM-ALBUTEROL 3 ML NEB INHALATION SCH ×4 (07:25→18:59)
[2016-08-22 07:32] LABS: Basophils % (A) 0 %; CH 32.1; CHCM 32.7; Eosinophils % (A) 0 %; HDW 2.92; HGB 13.7 gm/dL (11.4-16.0); Luc # (Auto) 0.09; Luc % (Auto) 1; Lymphocytes # (A) 0.4 k/uL (1.0-4.8); Lymphocytes % (A) 4 %; MCH 32.3 pg (25.0-35.0); MCHC 32.7 g/dL (31.0-37.0); MCV 98.7 fL (80.0-100.0); Mean Platelet Volume 7.8; Monocytes # (A) 0.3 k/uL (0-1.0); Monocytes % (A) 3 %; Neutrophils % (A) 92 %; RBC 4.25 m/uL (3.80-5.40); RDW 13.5 % (11.5-15.5); WBC 9.8 k/uL (3.8-10.6); WBC (Perox) 9.89
--- NOTE | 2016-08-22 07:56 | PN ---
DATE OF SERVICE: 08/21/2016 ATTENDING NOTE: The patient was seen and examined by me today. I reviewed the note of my nurse practitioner, Ms. Rios. Discussed additional findings below. Patient presented with COPD. Also had acute non- ( ) [place]. Patient still short of breath, anxious. On examination, decreased breath sounds, prolonged expiration wheezing. CARDIOVASCULAR: First and second sounds normal. ASSESSMENT: 1. Acute severe chronic obstructive pulmonary disease exacerbation, slow to respond. 2. Acute non-ST myocardial infarction. PLAN: Care was discussed with the patient. Family at the bedside, reassured. Continue treatment plan. Patient is definitely slow to respond.
[2016-08-22 07:58] LABS: Calcium 9.5 mg/dL (8.4-10.2); Potassium 4.3 mmol/L (3.5-5.1)
[2016-08-22] MEDS: ISOSORBIDE MONONITRATE ER 30 MG TAB.ER.24H PO SCH (08:15)
[2016-08-22] MEDS: METOPROLOL TARTRATE 50 MG TAB PO SCH ×2 (08:15→21:12)
[2016-08-22] MEDS: LORazepam 1 MG TAB PO PRN ×2 (08:15→23:08)
[2016-08-22] MEDS: AMIODARONE 200 MG TAB PO SCH (08:16)
[2016-08-22] MEDS: APIXABAN 2.5 MG TABLET PO SCH ×2 (08:16→21:12)
[2016-08-22] MEDS: ASPIRIN 81 MG CHEW PO SCH (08:16)
[2016-08-22] MEDS: FUROSEMIDE 40 MG TAB PO SCH (08:16)
[2016-08-22] MEDS: INSULIN LISPRO (humaLOG) 300 UNIT/3 ML VIAL SQ SCH ×4 (08:18→21:12)
[2016-08-22 11:27] LABS: Glucose,Whole Blood 158 mg/dL (75-99)
--- NOTE | 2016-08-22 12:21 | P.PN ---
Subjective Principal diagnosis: COPD exacerbation. 81-year-old female patient with known history of COPD, with a baseline FEV1 of 47% of predicted maintained on a combination of Advair and Spiriva on outpatient basis. The patient was in the hospital in March 2016 admit for worsening shortness of breath and she was found to be in acute CHF with increased lower extremity edema and new onset atrial fibrillation with rapid ventricular response. She was treated with a Cardizem drip and ultimately she was switched to amiodarone and echocardiogram was done and showed that the patient has depressed ejection fraction of 20-25%. CT angios the chest that was done back then was negative. The patient was optimized in regards to her CHF and she was discharged home. In follow-up I saw this patient in my office and she was looking very well and she was not having any major respiratory distress. She was also on long-term anticoagulation using Eliquis. Subsequently the patient was rehospitalized on July 2016 for acute bronchitis and COPD exacerbation. During her hospital stay the patient had a kidney injury with her creatinine went up to 1.3 and subsequently it improved During this current hospitalization, the patient came into the hospital because of increased dyspnea. Cough. She had also increased sputum production and wheezing. Troponins were minimally elevated and there was evidence of troponin leak. The patient was hypoxic and she checked her pulse ox at home and was as low as 72%. Note that she does not have significant hypoxemia. Based on that she came into the hospital. She was seen by cardiology. Pulmonary was also placed on consult. The chest x-ray shows evidence of COPD and there is no evidence of an acute pneumonia at this point. There is increased coarse interstitial markings bilaterally. The patient's white cell count is not elevated. The patient's renal function is within normal limits. She is free of any chest pain. The patient is seen again today August 22, 2016 in follow-up on the regular medical floor. She is awake and alert in no acute distress. She has been trialed without her oxygen and is maintaining good O2 saturations in the 90s on room air even while walking in the hallway. She states she is breathing easier today as compared to yesterday. Blood cultures reveal no growth to date. No leukocytosis. She's been afebrile. She remains on bronchodilators, IV Solu- Medrol, Levaquin. Objective - Vital Signs Vital signs: Vital Signs Temp 97.3 F L 08/22/16 07:00 Pulse 68 08/22/16 11:33 Resp 18 08/22/16 08:00 BP 127/56 08/22/16 07:00 Pulse Ox 97 08/22/16 07:00 Intake & Output 08/21/16 08/22/16 08/22/16 18:59 06:59 18:59 Intake Total 400 Output Total 150 Balance 250 Weight 70.2 kg Intake: Oral 400 Output: Urine 150 Other: Voiding Method Toilet Toilet Toilet # Voids 3 1 - Exam GENERAL EXAM: Alert, active, comfortable in no apparent distress. HEAD: Normocephalic. EYES: Normal reaction of pupils, equal size. NOSE: Clear with pink turbinates. THROAT: No erythema or exudates. NECK: No masses, no JVD. CHEST: No chest wall deformity. LUNGS: Equal air entry with no crackles, wheeze, rhonchi or dullness. CVS: S1 and S2 normal with no audible murmurs, regular rhythm. ABDOMEN: No hepatosplenomegaly, normal bowel sounds, no guarding or rigidity. SPINE: No scoliosis or deformity SKIN: No rashes CENTRAL NERVOUS SYSTEM: No focal deficits, tone is normal in all 4 extremities. Extremities: There is no peripheral edema. No clubbing, no cyanosis. Peripheral pulses are intact. - Labs CBC & Chem 7: 08/22/16 07:03 08/22/16 07:03 Labs: Abnormal Lab Results - Last 24 Hours (Table) 08/21/16 08/21/16 08/22/16 Range/Units 17:37 20:49 07:03 Neutrophils # 9.0 H (1.3-7.7) k/uL Lymphocytes # 0.4 L (1.0-4.8) k/uL Carbon Dioxide (22-30) mmol/L BUN (7-17) mg/dL Creatinine (0.52-1.04) mg/dL Glucose (74-99) mg/dL POC Glucose (mg/dL) 122 H 192 H (75-99) mg/dL 08/22/16 08/22/16 08/22/16 Range/Units 07:03 07:13 11:11 Neutrophils # (1.3-7.7) k/uL Lymphocytes # (1.0-4.8) k/uL Carbon Dioxide 32 H (22-30) mmol/L BUN 33 H (7-17) mg/dL Creatinine 1.22 H (0.52-1.04) mg/dL Glucose 130 H (74-99) mg/dL POC Glucose (mg/dL) 129 H 158 H (75-99) mg/dL Microbiology - Last 24 Hours (Table) 08/19/16 13:50 Blood Culture - Preliminary Blood No Growth after 48 hours Assessment and Plan Plan: Assessment 1 acute COPD exacerbation/acute tracheal bronchitis. 2 moderate to severe COPD with a baseline FEV1 of 47% of predicted the patient is demented on a combination of Advair and Spiriva on outpatient basis. 3 CHF with an ejection fraction of 20-25% 4 nonocclusive coronary artery disease 5 troponin leak 6 proximity fibrillation 7 anxiety disorder 8 secondary pulmonary hypertension 9 diverticulosis 10 osteoarthritis Plan: The patient was seen and evaluated by Dr. Crouch. She is stable from the pulmonary standpoint. We'll continue with her current medications. We'll increase her activity as tolerated. We'll initiate a prednisone taper. We'll continue to follow.
[2016-08-22] MEDS ORDERED: LEVOFLOXACIN 750 MG TAB PO SCH (15:00)
[2016-08-22 17:36] LABS: Glucose,Whole Blood 132 mg/dL (75-99)
--- NOTE | 2016-08-22 18:00 | PN ---
DATE OF SERVICE: 08/22/2016. PRESENTING COMPLAINT: Cough and fever. INTERVAL HISTORY: This patient presented with an acute severe exacerbation of COPD . Today the patient is lying in bed, wants to go home, not in any distress but is; however, concerned about oxygen having to go home on oxygen. Patient appears mildly anxious. Tolerating her diet. Ambulatory with assistance to the bathroom. Review of systems done for constitutional, cardiovascular, GI, pulmonary, with relevant findings as above. CURRENT MEDICATIONS: DuoNeb, Cordarone, Eliquis, aspirin, Lasix, Imdur, levofloxacin IV, Solu-Medrol, Lopressor. PHYSICAL EXAMINATION: VITAL SIGNS: Temperature 97.3, pulse 56, respiratory rate 20, blood pressure 127/56, oxygen saturation 97% on 3 liters. GENERAL APPEARANCE: Patient is lying in the bed, cooperative. No distress. EYES: Pupils equal. Conjunctivae normal. NECK: JVD raised. Mass not palpable. RESPIRATORY: Effort increased. LUNGS: Diminished breath sounds bilaterally. Prolonged expiration. CARDIOVASCULAR: First and second sounds noted. No edema. ABDOMEN: Soft, nontender. Liver and spleen not palpable. PSYCHIATRY: Alert and oriented x3. Patient is anxious today. INVESTIGATIONS: White blood cell count 9.8, hemoglobin 13.7. Sodium 142, potassium 4.3. BUN 33, creatinine 1.22, blood glucose 158. ASSESSMENT: 1. Acute severe chronic obstructive pulmonary disease exacerbation, slow to respond. 2. Acute non-ST myocardial infarction. 3. 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 4. Chronic congestive heart failure from systolic dysfunction. Ejection fraction 40%, underlying coronary artery disease. 5. Paroxysmal atrial fibrillation. Patient is now in sinus rhythm. 6. Moderate tricuspid regurgitation nonrheumatic secondary to pulmonary hypertension secondary to chronic obstructive pulmonary disease. 7. Coronary artery disease and nonobstructive lesion to the left anterior descending artery. 8. Acute hypoxic respiratory failure, present at admission, improving. PLAN: Patient to remain on IV antibiotics as well as pulmonology initiating steroid taper. Patient may be stable enough to discharge tomorrow. Will follow. Patient seen and examined by nurse practitioner Seema Rios, and all elements of the case discussed with attending, Dr. Weller. I performed a history and physical examination of this patient and discussed the same with the dictator. I agree with the dictator's note. Any additional findings/opinions, etc. will be noted.
[2016-08-22 20:47] LABS: Glucose,Whole Blood 146 mg/dL (75-99)
[2016-08-22] MEDS: ATORVASTATIN 40 MG TAB PO SCH (21:12)
[2016-08-23] MEDS: IPRATROPIUM-ALBUTEROL 3 ML NEB INHALATION SCH ×3 (07:10→15:13)
[2016-08-23 07:26] LABS: Glucose,Whole Blood 102 mg/dL (75-99)
[2016-08-23] MEDS: INSULIN LISPRO (humaLOG) 300 UNIT/3 ML VIAL SQ SCH ×2 (08:14→12:27)
[2016-08-23] MEDS: APIXABAN 2.5 MG TABLET PO SCH (08:31)
[2016-08-23] MEDS: ISOSORBIDE MONONITRATE ER 30 MG TAB.ER.24H PO SCH (08:31)
[2016-08-23] MEDS: AMIODARONE 200 MG TAB PO SCH (08:31)
[2016-08-23] MEDS: ASPIRIN 81 MG CHEW PO SCH (08:32)
[2016-08-23] MEDS: METOPROLOL TARTRATE 50 MG TAB PO SCH (08:32)
[2016-08-23] MEDS: FUROSEMIDE 40 MG TAB PO SCH (08:33)
[2016-08-23] MEDS ORDERED: predniSONE 20 MG TAB PO SCH (09:00)
[2016-08-23 09:25] VITALS: BP 131/98; RESP 18; TEMP 98.5
[2016-08-23 10:11] LABS: Basophils % (A) 0 %; CH 31.8; CHCM 32.7; Eosinophils % (A) 0 %; HCT 42.5 % (34.0-46.0); HDW 2.88; HGB 14.1 gm/dL (11.4-16.0); Luc # (Auto) 0.17; Luc % (Auto) 2; Lymphocytes # (A) 0.6 k/uL (1.0-4.8); Lymphocytes % (A) 5 %; MCH 32.4 pg (25.0-35.0); MCHC 33.1 g/dL (31.0-37.0); MCV 97.7 fL (80.0-100.0); Mean Platelet Volume 7.5; Monocytes # (A) 0.8 k/uL (0-1.0); Monocytes % (A) 7 %; Neutrophils # (A) 9.5 k/uL (1.3-7.7); Neutrophils % (A) 86 %; RBC 4.35 m/uL (3.80-5.40); RDW 13.3 % (11.5-15.5); WBC (Perox) 11.42
[2016-08-23 10:26] LABS: Potassium 4.5 mmol/L (3.5-5.1)
--- NOTE | 2016-08-23 13:16 | P.PN ---
Subjective Principal diagnosis: COPD exacerbation. 81-year-old female patient with known history of COPD, with a baseline FEV1 of 47% of predicted maintained on a combination of Advair and Spiriva on outpatient basis. The patient was in the hospital in March 2016 admit for worsening shortness of breath and she was found to be in acute CHF with increased lower extremity edema and new onset atrial fibrillation with rapid ventricular response. She was treated with a Cardizem drip and ultimately she was switched to amiodarone and echocardiogram was done and showed that the patient has depressed ejection fraction of 20-25%. CT angios the chest that was done back then was negative. The patient was optimized in regards to her CHF and she was discharged home. In follow-up I saw this patient in my office and she was looking very well and she was not having any major respiratory distress. She was also on long-term anticoagulation using Eliquis. Subsequently the patient was rehospitalized on July 2016 for acute bronchitis and COPD exacerbation. During her hospital stay the patient had a kidney injury with her creatinine went up to 1.3 and subsequently it improved During this current hospitalization, the patient came into the hospital because of increased dyspnea. Cough. She had also increased sputum production and wheezing. Troponins were minimally elevated and there was evidence of troponin leak. The patient was hypoxic and she checked her pulse ox at home and was as low as 72%. Note that she does not have significant hypoxemia. Based on that she came into the hospital. She was seen by cardiology. Pulmonary was also placed on consult. The chest x-ray shows evidence of COPD and there is no evidence of an acute pneumonia at this point. There is increased coarse interstitial markings bilaterally. The patient's white cell count is not elevated. The patient's renal function is within normal limits. She is free of any chest pain. The patient is seen again today August 22, 2016 in follow-up on the regular medical floor. She is awake and alert in no acute distress. She has been trialed without her oxygen and is maintaining good O2 saturations in the 90s on room air even while walking in the hallway. She states she is breathing easier today as compared to yesterday. Blood cultures reveal no growth to date. No leukocytosis. She's been afebrile. She remains on bronchodilators, IV Solu- Medrol, Levaquin. The patient is seen again today 08/23/2016 in follow-up on the regular medical floor. She is doing quite well. She is nearly back to her baseline. She's been up ambulating with assistance and maintaining good O2 saturations in the 90s. Her cough has subsided. She has been treated with bronchodilators, steroids and Levaquin. She is anxious to go home. Objective - Vital Signs Vital signs: Vital Signs Temp 98.5 F 08/23/16 07:00 Pulse 68 08/23/16 11:46 Resp 18 08/23/16 11:34 BP 131/98 08/23/16 07:00 Pulse Ox 97 08/23/16 07:00 Intake & Output 08/22/16 08/23/16 08/23/16 18:59 06:59 18:59 Intake Total 400 800 Output Total 150 Balance 250 800 Weight 70.3 kg 67.6 kg Intake: Oral 400 800 Output: Urine 150 Other: Voiding Method Toilet Toilet Toilet # Voids 3 2 - Exam GENERAL EXAM: Alert, active, comfortable in no apparent distress. HEAD: Normocephalic. EYES: Normal reaction of pupils, equal size. NOSE: Clear with pink turbinates. THROAT: No erythema or exudates. NECK: No masses, no JVD. CHEST: No chest wall deformity. LUNGS: Equal air entry with no crackles, wheeze, rhonchi or dullness. CVS: S1 and S2 normal with no audible murmurs, regular rhythm. ABDOMEN: No hepatosplenomegaly, normal bowel sounds, no guarding or rigidity. SPINE: No scoliosis or deformity SKIN: No rashes CENTRAL NERVOUS SYSTEM: No focal deficits, tone is normal in all 4 extremities. Extremities: There is no peripheral edema. No clubbing, no cyanosis. Peripheral pulses are intact. - Labs CBC & Chem 7: 08/23/16 09:32 08/23/16 09:32 Labs: Abnormal Lab Results - Last 24 Hours (Table) 08/22/16 08/22/16 08/23/16 Range/Units 17:34 20:45 07:22 WBC (3.8-10.6) k/uL Neutrophils # (1.3-7.7) k/uL Lymphocytes # (1.0-4.8) k/uL Carbon Dioxide (22-30) mmol/L BUN (7-17) mg/dL Creatinine (0.52-1.04) mg/dL POC Glucose (mg/dL) 132 H 146 H 102 H (75-99) mg/dL 08/23/16 08/23/16 Range/Units 09:32 09:32 WBC 11.0 H (3.8-10.6) k/uL Neutrophils # 9.5 H (1.3-7.7) k/uL Lymphocytes # 0.6 L (1.0-4.8) k/uL Carbon Dioxide 35 H (22-30) mmol/L BUN 40 H (7-17) mg/dL Creatinine 1.35 H (0.52-1.04) mg/dL POC Glucose (mg/dL) (75-99) mg/dL Microbiology - Last 24 Hours (Table) 08/19/16 13:50 Blood Culture - Preliminary Blood No Growth after 72 hours Assessment and Plan Plan: Assessment 1 acute COPD exacerbation/acute tracheal bronchitis. 2 moderate to severe COPD with a baseline FEV1 of 47% of predicted the patient is demented on a combination of Advair and Spiriva on outpatient basis. 3 CHF with an ejection fraction of 20-25% 4 nonocclusive coronary artery disease 5 troponin leak 6 proximity fibrillation 7 anxiety disorder 8 secondary pulmonary hypertension 9 diverticulosis 10 osteoarthritis Plan: The patient was seen and evaluated by Dr. Crouch. She is stable from the pulmonary standpoint and could be discharged home today. Continue her home medications. We'll initiate a prednisone taper. She will follow-up in our office in 1-2 weeks' time. She is however encouraged to call sooner with any recurrence of symptoms or other questions or concerns.
--- NOTE | 2016-08-23 14:21 | PN ---
DATE OF SERVICE: 08/22/2016 ATTENDING NOTE: The patient is seen and examined by me on 08/22/2016. I reviewed the note of my nurse practitioner, Ms. Rios. Discussed additional findings below. Patient admitted with COPD exacerbation and acute non-Q-wave SD. Breathing is better. Still visibly short-winded. Patient has been up to the bathroom. Anxiety somewhat better. On exam, lungs decreased breath sounds, prolonged expiration, pulse ox 97% on 3 L. CARDIOVASCULAR: First and second sounds normal. ASSESSMENT: 1. Acute severe chronic obstructive pulmonary disease exacerbation, improving. 2. Acute non-ST elevation myocardial infarction. PLAN: Patient encouraged to be out bed. Will see how she does. Care was discussed with the patient. Will follow.
[2016-08-23 15:25] VITALS: PULSE 68
--- NOTE | 2016-08-24 17:00 | DS ---
DATE OF ADMISSION: 08/19/2016 DATE OF DISCHARGE: 08/23/2016 FINAL DIAGNOSES: 1. Acute severe chronic obstructive pulmonary disease exacerbation, present on admission. 2. Acute [id number]-[id number] myocardial infarction. 3. Chronic kidney disease, stage III, from hypertensive nephrosclerosis. 4. Chronic congestive heart failure from systolic dysfunction; ejection fraction 40%, with underlying coronary artery disease. 5. Paroxysmal atrial fibrillation, now in sinus rhythm. 6. Moderate tricuspid regurgitation, non-rheumatic, secondary to pulmonary hypertension secondary to chronic obstructive pulmonary disease. 7. Coronary artery disease with non-obstructive lesion to the left anterior descending coronary artery from prior cardiac catheterization. 8. Acute hypoxic respiratory failure, present on admission, from chronic obstructive pulmonary disease exacerbation. 9. Acute tracheobronchitis, present on admission. 10. Rosacea, chronic. HOSPITAL COURSE: This patient presented with shortness of breath, felt to have acute non-Q-wave AK. No further intervention per Dr. Elsa Silvemran. Patient had a recent cardiac catheterization that showed ( ) findings. Also has COPD exacerbation, doing better, and tracheobronchitis. On the day of discharge care was discussed in detail with the patient. Patient was up and about in the hallway. Patient's BUN and creatinine were 14 and 1.35. DISCHARGE MEDICATIONS: 1. Ventolin HFA 2 puffs q.i.d. p.r.n. 2. Advair 250/50 one puff b.i.d. 3. Ativan 1 mg p.o. b.i.d. p.r.n. 4. Lopressor 50 mg p.o. b.i.d. 5. Cordarone 200 mg p.o. daily. 6. Eliquis 2.5 p.o. b.i.d. 7. Lasix 40 mg p.o. daily. 8. Spiriva 1 capsule p.o. daily. 9. Aspirin 81 mg p.o. daily. 10. Lipitor 40 mg at bedtime. 11. Imdur ER 30 mg daily. 12. Nitrostat 0.4 sublingually q.5 p.r.n. 13. DuoNeb q.i.d. p.r.n. 14. Prednisone taper. Follow up with Dr. Alcantar on 08/28/16; Dr. Pagan on 08/29/16; Dr. Torres on 08/31/16. On examination: CARDIOVASCULAR: First and second seconds normal. LUNGS: Decreased breath sounds. Discharge planning more than 35 minutes.
== END 2016-08-23 16:35 | disposition home or self-care (01) | DRG 190 ==
LOC: EC 13:32 → 6SEL 15:26 → 5MS5E 08-20 14:44
PROVIDERS: ADMIT Hospitalist; ATTEND Hospitalist
DX: J44.0 Chronic obstructive pulmonary disease with (acute) lower respiratory infection (principal); I21.4 Non-ST elevation (NSTEMI) myocardial infarction; J96.01 Acute respiratory failure with hypoxia; N17.9 Acute kidney failure, unspecified; I27.2 Other secondary pulmonary hypertension; I50.22 Chronic systolic (congestive) heart failure; I13.0 Hypertensive heart and chronic kidney disease with heart failure and stage 1 through stage 4 chronic kidney disease, or unspecified chronic kidney disease; J44.1 Chronic obstructive pulmonary disease with (acute) exacerbation; E86.0 Dehydration; I48.0 Paroxysmal atrial fibrillation; I07.1 Rheumatic tricuspid insufficiency; N18.3 Chronic kidney disease, stage 3 (moderate); F41.1 Generalized anxiety disorder; H91.90 Unspecified hearing loss, unspecified ear; J20.9 Acute bronchitis, unspecified; L71.9 Rosacea, unspecified; I25.10 Atherosclerotic heart disease of native coronary artery without angina pectoris; K57.90 Diverticulosis of intestine, part unspecified, without perforation or abscess without bleeding; M19.90 Unspecified osteoarthritis, unspecified site; Z79.01 Long term (current) use of anticoagulants; Z79.899 Other long term (current) drug therapy; Z87.891 Personal history of nicotine dependence; Z88.1 Allergy status to other antibiotic agents
CPT/HCPCS: 36415; 71020; 80048; 80053; 80061; 82550; 82553; 83036; 83735; 83880; 84484; 85025; 85049; 85379; 85610; 85730; 87040; 93005; 94640; 94644; 96365; 96366; 96375; 96376; 99291

== ENCOUNTER 2016-08-25 13:30 | Emergency (ER) | payer MEDICARE, BC ==
[2016-08-25] MEDS ORDERED: IPRATROPIUM-ALBUTEROL 3 ML NEB INHALATION STA (13:48)
[2016-08-25] MEDS ORDERED: methylPREDNISolone SOD SUCCI 125 MG/2 ML VIAL IV STA (13:48)
--- NOTE | 2016-08-25 13:51 | ED ---
General Adult HPI - General Stated complaint: Diff breathing Time Seen by Provider: 08/25/16 13:42 Source: patient, RN notes reviewed Limitations: no limitations - History of Present Illness Initial comments: Patient is a pleasant 81-year-old female presenting to the emergency Department with complaints of difficulty breathing. Patient was just discharged from the hospital days ago patient does check her oxygen and found it to decreased to 84 % with exertion. Patient does complain of some dyspnea with exertion. She has only mild at rest. Patient does have cough with minimal productivity. No fevers. Patient does have COPD with similar symptoms previously. - Related Data Home Medications Medication Instructions Recorded Confirmed Albuterol Inhaler [Ventolin Hfa 2 puff INHALATION RT-QID PRN 03/25/16 08/25/16 Inhaler] Fluticasone/Salmeterol [Advair 1 puff INHALATION RT-BID 03/25/16 08/25/16 250-50 Diskus] LORazepam [Ativan] 1 mg PO BID PRN 03/25/16 08/25/16 Amiodarone [Cordarone] 200 mg PO DAILY 07/03/16 08/25/16 Apixaban [Eliquis] 2.5 mg PO BID 07/03/16 08/25/16 Furosemide [Lasix] 40 mg PO DAILY 08/19/16 08/25/16 Tiotropium 18 Mcg/Puff [Spiriva] 1 cap INHALATION RT-DAILY 08/19/16 08/25/16 predniSONE See Taper PO DAILY 08/25/16 08/25/16 Previous Rx's Medication Instructions Recorded Metoprolol Tartrate [Lopressor] 50 mg PO BID #60 tab 03/30/16 Aspirin 81 mg PO DAILY 08/21/16 Atorvastatin [Lipitor] 40 mg PO HS #30 tab 08/21/16 Isosorbide Mononitrate ER [Imdur] 30 mg PO DAILY #30 tab 08/21/16 Nitroglycerin Sl Tabs [Nitrostat] 0.4 mg SUBLINGUAL Q5M PRN #30 tab 08/21/16 Ipratropium-Albuterol Nebulize 3 ml INHALATION RT-QID PRN #120 08/23/16 [Duoneb 0.5 mg-3 mg/3 ml Soln] ampul.neb Allergies Allergy/AdvReac Type Severity Reaction Status Date / Time cefuroxime axetil Allergy Unknown Verified 08/25/16 13:47 [From Ceftin] Review of Systems ROS Statement: Those systems with pertinent positive or pertinent negative responses have been documented in the HPI. ROS Other: All systems not noted in ROS Statement are negative. Constitutional: Denies: fever Eyes: Denies: eye pain ENT: Denies: ear pain Respiratory: Reports: as per HPI, dyspnea Cardiovascular: Denies: chest pain Endocrine: Reports: fatigue Gastrointestinal: Denies: abdominal pain Genitourinary: Denies: urgency Musculoskeletal: Denies: back pain Skin: Denies: rash Neurological: Denies: weakness Past Medical History Past Medical History: Atrial Fibrillation, Coronary Artery Disease (CAD), Heart Failure, COPD, Hearing Disorder / Deafness, Hypertension, Respiratory Disorder Additional Past Medical History / Comment(s): Generalized anxiety disorder, hearing impaired, generalized anxiety disorder, CHF with an ejection fraction of 20-25%, nonocclusive coronary artery disease, diverticulosis, paroxysmal atrial fibrillation, osteoarthritis, secondary pulmonary hypertension. History of Any Multi-Drug Resistant Organisms: None Reported Past Surgical History: Adenoidectomy, Appendectomy, Hysterectomy, Orthopedic Surgery, Tonsillectomy Additional Past Surgical History / Comment(s): Right knee arthroscopy for torn meniscus. Colonoscopies x 3 total. Bilateral eyelid surgery. Past Anesthesia/Blood Transfusion Reactions: No Reported Reaction Additional Past Anesthesia/Blood Transfusion Reaction / Comment(s): Pt has never recieved blood. Past Psychological History: Anxiety Additional Psychological History / Comment(s): Pt is . She lives alone in her single level home in [facility]. She is very independent. She rides bicycle and is an avid bowler. She drives a car. She has a niece that lives nearby if she needs someone. She shovels her own driveway. Smoking Status: Former smoker Past Alcohol Use History: Occasional Additional Past Alcohol Use History / Comment(s): Patient was a smoker one pack per day 54 years. She quit 12 years ago. She drinks alcohol daily 1-2 drinks if she is at home. 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 She has no pets in the home. Past Drug Use History: None Reported - Past Family History Father Family Medical History: Cancer Additional Family Medical History / Comment(s): Father at age 77yrs of cancer which pt believes may have started in his throat. Mother Family Medical History: Dementia Additional Family Medical History / Comment(s): Mother at age 95yrs. She was very healthy most of her life- she had dementia at the very end of her life. General Exam General appearance: alert, in no apparent distress Head exam: Present: atraumatic Eye exam: Present: normal appearance, PERRL ENT exam: Present: normal oropharynx Neck exam: Present: normal inspection Respiratory exam: Present: decreased breath sounds Cardiovascular Exam: Present: regular rate, normal rhythm GI/Abdominal exam: Present: soft. Absent: tenderness Extremities exam: Present: normal inspection. Absent: pedal edema, calf tenderness Neurological exam: Present: alert Psychiatric exam: Present: normal affect, normal mood Skin exam: Present: normal color Course Vital Signs 08/25/16 08/25/16 08/25/16 13:30 14:13 14:19 Temperature 98.6 F Pulse Rate 55 L 48 L 45 L Respiratory 20 Rate Blood Pressure 130/60 O2 Sat by Pulse 95 Oximetry 08/25/16 14:57 Temperature 99.0 F Pulse Rate 49 L Respiratory 18 Rate Blood Pressure 108/67 O2 Sat by Pulse 95 Oximetry EKG Findings - EKG Comments: EKG Findings:: Sinus bradycardia 49. LA 138. QRS 84. QTC 550. QTC 496. Left axis. Septal Q waves. No acute ST change. Medical Decision Making - Medical Decision Making Patient reevaluated and resting comfortably in bed. Patient requesting discharge home. Case discussed with Dr. wakefield who is familiar with this patient and did come evaluate. He did prescribe patient oxygen. moving worker will help assist. - Lab Data Result diagrams: 08/25/16 14:00 08/25/16 14:00 Lab Results 08/25/16 08/25/16 08/25/16 Range/Units 14:00 14:00 14:00 WBC 8.1 (3.8-10.6) k/uL RBC 4.22 (3.80-5.40) m/uL Hgb 13.6 (11.4-16.0) gm/dL Hct 40.9 (34.0-46.0) % MCV 97.0 (80.0-100.0) fL MCH 32.3 (25.0-35.0) pg MCHC 33.3 (31.0-37.0) g/dL RDW 13.1 (11.5-15.5) % Plt Count 238 (150-450) k/uL Neutrophils % 91 % Lymphocytes % 6 % Monocytes % 2 % Eosinophils % 1 % Basophils % 0 % Neutrophils # 7.4 (1.3-7.7) k/uL Lymphocytes # 0.5 L (1.0-4.8) k/uL Monocytes # 0.1 (0-1.0) k/uL Eosinophils # 0.1 (0-0.7) k/uL Basophils # 0.0 (0-0.2) k/uL PT (9.0-12.0) sec INR (<1.1) APTT (22.0-30.0) sec D-Dimer (<0.60) mg/L FEU Sodium 139 (137-145) mmol/L Potassium 4.8 (3.5-5.1) mmol/L Chloride 99 (98-107) mmol/L Carbon Dioxide 26 (22-30) mmol/L Anion Gap 14 mmol/L BUN 44 H (7-17) mg/dL Creatinine 1.38 H (0.52-1.04) mg/dL Est GFR (MDRD) Af Amer 44 (>60 ml/min/1.73 sqM) Est GFR (MDRD) Non-Af 37 (>60 ml/min/1.73 sqM) Glucose 262 H (74-99) mg/dL Calcium 9.0 (8.4-10.2) mg/dL Total Bilirubin 0.8 (0.2-1.3) mg/dL AST 34 (14-36) U/L ALT 37 (9-52) U/L Alkaline Phosphatase 63 (38-126) U/L Total Creatine Kinase 53 (30-135) U/L CK-MB (CK-2) 2.5 H* (0.0-2.4) ng/mL CK-MB (CK-2) Rel Index 4.7 Troponin I <0.012 (0.000-0.034) ng/mL Total Protein 6.3 (6.3-8.2) g/dL Albumin 4.0 (3.5-5.0) g/dL 08/25/16 Range/Units 14:00 WBC (3.8-10.6) k/uL RBC (3.80-5.40) m/uL Hgb (11.4-16.0) gm/dL Hct (34.0-46.0) % MCV (80.0-100.0) fL MCH (25.0-35.0) pg MCHC (31.0-37.0) g/dL RDW (11.5-15.5) % Plt Count (150-450) k/uL Neutrophils % % Lymphocytes % % Monocytes % % Eosinophils % % Basophils % % Neutrophils # (1.3-7.7) k/uL Lymphocytes # (1.0-4.8) k/uL Monocytes # (0-1.0) k/uL Eosinophils # (0-0.7) k/uL Basophils # (0-0.2) k/uL PT 11.9 (9.0-12.0) sec INR 1.2 (<1.1) APTT 26.0 (22.0-30.0) sec D-Dimer 0.26 (<0.60) mg/L FEU Sodium (137-145) mmol/L Potassium (3.5-5.1) mmol/L Chloride (98-107) mmol/L Carbon Dioxide (22-30) mmol/L Anion Gap mmol/L BUN (7-17) mg/dL Creatinine (0.52-1.04) mg/dL Est GFR (MDRD) Af Amer (>60 ml/min/1.73 sqM) Est GFR (MDRD) Non-Af (>60 ml/min/1.73 sqM) Glucose (74-99) mg/dL Calcium (8.4-10.2) mg/dL Total Bilirubin (0.2-1.3) mg/dL AST (14-36) U/L ALT (9-52) U/L Alkaline Phosphatase (38-126) U/L Total Creatine Kinase (30-135) U/L CK-MB (CK-2) (0.0-2.4) ng/mL CK-MB (CK-2) Rel Index Troponin I (0.000-0.034) ng/mL Total Protein (6.3-8.2) g/dL Albumin (3.5-5.0) g/dL - Radiology Data Radiology results: image reviewed (Chest x-ray shows no acute process.) Disposition Clinical Impression: COPD (chronic obstructive pulmonary disease) Disposition: HOME SELF-CARE Condition: Stable Instructions: COPD (Chronic Obstructive Pulmonary Disease) (ED) Additional Instructions: Oxygen as prescribed by Dr. townsend. Please follow-up with primary care physician in the beginning of the week. Return for nausea, difficult to breathing, fevers, worsening symptoms or other concerns. Referrals: Raulito Alcantar DO [Primary Care Provider] - 1-2 days Time of Disposition: 16:01
[2016-08-25 14:23] LABS: Basophils % (A) 0 %; CH 32.4; CHCM 33.6; Eosinophils # (A) 0.1 k/uL (0-0.7); Eosinophils % (A) 1 %; HCT 40.9 % (34.0-46.0); HDW 2.81; HGB 13.6 gm/dL (11.4-16.0); Luc # (Auto) 0.04; Luc % (Auto) 1; Lymphocytes # (A) 0.5 k/uL (1.0-4.8); Lymphocytes % (A) 6 %; MCH 32.3 pg (25.0-35.0); MCHC 33.3 g/dL (31.0-37.0); Mean Platelet Volume 7.6; Monocytes # (A) 0.1 k/uL (0-1.0); Monocytes % (A) 2 %; Neutrophils # (A) 7.4 k/uL (1.3-7.7); Neutrophils % (A) 91 %; RBC 4.22 m/uL (3.80-5.40); RDW 13.1 % (11.5-15.5); WBC 8.1 k/uL (3.8-10.6); WBC (Perox) 8.68
[2016-08-25 14:37] LABS: Potassium 4.8 mmol/L (3.5-5.1); Total Bilirubin 0.8 mg/dL (0.2-1.3); Total Protein 6.3 g/dL (6.3-8.2)
[2016-08-25 14:38] LABS: INR 1.2 (<1.1); Prothrombin Time 11.9 sec (9.0-12.0)
--- NOTE | 2016-08-25 14:40 | XR ---
EXAMINATION TYPE: XR chest 2V DATE OF EXAM: 08/25/2016 COMPARISON: Chest x-ray August 19, 2016. HISTORY: Difficulty in breathing. TECHNIQUE: Frontal and lateral views of the chest are obtained. FINDINGS: There is chronic emphysematous change without suspicious focal air space opacity, pleural effusion, or pneumothorax seen. Patchy left basilar scarring or atelectasis is redemonstrated. The ca rdiac silhouette size is stable and upper limits of normal with atherosclerotic thoracic aorta. The osseous structures are intact. IMPRESSION: Chronic emphysematous change without suspicious acute pulmonary process.
[2016-08-25 15:05] LABS: Creatine Kinase 53 U/L (30-135)
[2016-08-25 15:18] LABS: Troponin I <0.012 ng/mL (0.000-0.034)
[2016-08-25 15:27] LABS: Creatine Kinase MB 2.5 ng/mL (0.0-2.4)
[2016-08-25 17:29] VITALS: BP 144/73; PULSE 53; RESP 18; TEMP 98.8
== END 2016-08-25 17:29 | disposition home or self-care (01) ==
LOC: EC 13:30
DX: J44.9 Chronic obstructive pulmonary disease, unspecified (principal); I25.10 Atherosclerotic heart disease of native coronary artery without angina pectoris; I50.9 Heart failure, unspecified; I48.0 Paroxysmal atrial fibrillation; I27.2 Other secondary pulmonary hypertension; Z87.891 Personal history of nicotine dependence; Z79.01 Long term (current) use of anticoagulants; Z79.51 Long term (current) use of inhaled steroids; Z79.52 Long term (current) use of systemic steroids; Z79.899 Other long term (current) drug therapy; Z88.1 Allergy status to other antibiotic agents
CPT/HCPCS: 99285; 96374; 36415; 94640; 93005; 85379; 80053; 82550; 82553; 84484; 85025; 85610; 85730; 71020; J2930

== ENCOUNTER 2016-09-22 11:23 | Inpatient (IN) | payer MEDICARE, BC ==
[2016-09-22] MEDS ORDERED: FUROSEMIDE 10 MG/ML 2 ML VIAL IV ONE (12:03)
--- NOTE | 2016-09-22 12:06 | ED ---
General Adult HPI - General Chief complaint: Extremity Problem,Nontraumatic Stated complaint: feet swelling, Hx of CHF Time Seen by Provider: 09/22/16 11:35 Source: patient, RN notes reviewed Mode of arrival: wheelchair Limitations: no limitations - History of Present Illness Initial comments: This is an 81-year-old female presents emergency Department with a past medical history significant for congestive heart failure. Patient states she is to be on Lasix twice a day she is only on Lasix once a day now. Patient states her legs of gotten swollen over the last few days and she is call the cross country truck driver and no one has called her back so she decided to come to the emergency department to be evaluated. Patient denies any difficulty breathing or shortness of breath more than normal. Patient denies any palpitations or chest pain. Patient denies abdominal pain patient denies nausea vomiting diarrhea. Patient denies headache patient denies lightheadedness dizziness or near syncopal episode. Patient's only complaint is a little swollen. She denies any calf pain. - Related Data Home Medications Medication Instructions Recorded Confirmed Albuterol Inhaler [Ventolin Hfa 2 puff INHALATION RT-QID PRN 03/25/16 09/22/16 Inhaler] Fluticasone/Salmeterol [Advair 1 puff INHALATION RT-BID 03/25/16 09/22/16 250-50 Diskus] LORazepam [Ativan] 1 mg PO BID PRN 03/25/16 09/22/16 Amiodarone [Cordarone] 200 mg PO DAILY 07/03/16 09/22/16 Apixaban [Eliquis] 2.5 mg PO BID 07/03/16 09/22/16 Furosemide [Lasix] 40 mg PO DAILY 08/19/16 09/22/16 Tiotropium 18 Mcg/Puff [Spiriva] 1 cap INHALATION RT-DAILY 08/19/16 09/22/16 Previous Rx's Medication Instructions Recorded Metoprolol Tartrate [Lopressor] 50 mg PO BID #60 tab 03/30/16 Aspirin 81 mg PO DAILY 08/21/16 Atorvastatin [Lipitor] 40 mg PO HS #30 tab 08/21/16 Isosorbide Mononitrate ER [Imdur] 30 mg PO DAILY #30 tab 08/21/16 Nitroglycerin Sl Tabs [Nitrostat] 0.4 mg SUBLINGUAL Q5M PRN #30 tab 08/21/16 Ipratropium-Albuterol Nebulize 3 ml INHALATION RT-QID PRN #120 08/23/16 [Duoneb 0.5 mg-3 mg/3 ml Soln] ampul.neb Allergies Allergy/AdvReac Type Severity Reaction Status Date / Time cefuroxime axetil Allergy Unknown Verified 09/22/16 12:08 [From Ceftin] Review of Systems ROS Statement: Those systems with pertinent positive or pertinent negative responses have been documented in the HPI. ROS Other: All systems not noted in ROS Statement are negative. Past Medical History Past Medical History: Atrial Fibrillation, Coronary Artery Disease (CAD), Heart Failure, COPD, Hearing Disorder / Deafness, Hypertension, Respiratory Disorder Additional Past Medical History / Comment(s): Generalized anxiety disorder, hearing impaired, generalized anxiety disorder, CHF with an ejection fraction of 20-25%, nonocclusive coronary artery disease, diverticulosis, paroxysmal atrial fibrillation, osteoarthritis, secondary pulmonary hypertension. History of Any Multi-Drug Resistant Organisms: None Reported Past Surgical History: Adenoidectomy, Appendectomy, Hysterectomy, Orthopedic Surgery, Tonsillectomy Additional Past Surgical History / Comment(s): Right knee arthroscopy for torn meniscus. Colonoscopies x 3 total. Bilateral eyelid surgery. Past Anesthesia/Blood Transfusion Reactions: No Reported Reaction Additional Past Anesthesia/Blood Transfusion Reaction / Comment(s): Pt has never recieved blood. Past Psychological History: Anxiety Smoking Status: Former smoker Past Alcohol Use History: Occasional Past Drug Use History: None Reported - Past Family History Father Family Medical History: Cancer Additional Family Medical History / Comment(s): Father at age 77yrs of cancer which pt believes may have started in his throat. Mother Family Medical History: Dementia Additional Family Medical History / Comment(s): Mother at age 95yrs. She was very healthy most of her life- she had dementia at the very end of her life. General Exam - General Exam Comments Initial Comments: GENERAL: Patient is well-developed and well-nourished. Patient is nontoxic and well- hydrated and is in no acute distress. ENT: Neck is soft and supple. No significant lymphadenopathy is noted. Oropharynx is clear. Moist mucous membranes. Neck has full range of motion without eliciting any pain. EYES: The sclera were anicteric and conjunctiva were pink and moist. Extraocular movements were intact and pupils were equal round and reactive to light. Eyelids were unremarkable. PULMONARY: Unlabored respirations. Good breath sounds bilaterally. No audible rales rhonchi or wheezing was noted. CARDIOVASCULAR: There is a regular rate and rhythm without any murmurs gallops or rubs. ABDOMEN: Soft and nontender with normal bowel sounds. No palpable organomegaly was noted. There is no palpable pulsatile mass. SKIN: Skin is clear with no lesions or rashes and otherwise unremarkable. NEUROLOGIC: Patient is alert and oriented x3. Cranial nerves II through XII are grossly intact. Motor and sensory are also intact. Normal speech, volume and content. Symmetrical smile. Cerebellar exam grossly intact. MUSCULOSKELETAL: Normal extremities with adequate strength and full range of motion. 1+ edema bilaterally LYMPHATICS: No significant lymphadenopathy is noted PSYCHIATRIC: Normal psychiatric evaluation. Normal interpersonal interactions appears functionally intact in deals appropriately with others. No signs of depression. No signs of anxiety. Limitations: no limitations Course Vital Signs 09/22/16 09/22/16 09/22/16 11:32 12:28 13:17 Temperature 97.7 F 97.7 F Pulse Rate 54 L 52 L 53 L Respiratory 16 20 18 Rate Blood Pressure 114/56 124/60 113/58 O2 Sat by Pulse 99 97 97 Oximetry 09/22/16 14:25 Temperature Pulse Rate 52 L Respiratory 18 Rate Blood Pressure 155/67 O2 Sat by Pulse 98 Oximetry Medical Decision Making - Medical Decision Making EKG shows sinus bradycardia 52 bpm [place] interval is 130 QRS is 94 QT interval 408 QTC is 379. Patient's EKG shows no ST segment elevation or depression or T- wave abnormalities noted. Patient was guaiac positive and hemoglobin dropped 4 points from 1 month ago. - Lab Data Result diagrams: 09/22/16 12:15 09/22/16 12:15 Lab Results 09/22/16 09/22/16 09/22/16 Range/Units 12:15 12:15 12:15 WBC 3.8 (3.8-10.6) k/uL RBC 3.12 L (3.80-5.40) m/uL Hgb 9.9 L D (11.4-16.0) gm/dL Hct 29.9 L (34.0-46.0) % MCV 95.5 (80.0-100.0) fL MCH 31.8 (25.0-35.0) pg MCHC 33.3 (31.0-37.0) g/dL RDW 14.5 (11.5-15.5) % Plt Count 244 (150-450) k/uL Neutrophils % 65 % Lymphocytes % 23 % Monocytes % 8 % Eosinophils % 1 % Basophils % 1 % Neutrophils # 2.5 (1.3-7.7) k/uL Lymphocytes # 0.9 L (1.0-4.8) k/uL Monocytes # 0.3 (0-1.0) k/uL Eosinophils # 0.0 (0-0.7) k/uL Basophils # 0.1 (0-0.2) k/uL Hypochromasia Slight PT (9.0-12.0) sec INR (<1.1) APTT (22.0-30.0) sec Sodium 142 (137-145) mmol/L Potassium 3.6 (3.5-5.1) mmol/L Chloride 104 (98-107) mmol/L Carbon Dioxide 28 (22-30) mmol/L Anion Gap 10 mmol/L BUN 25 H (7-17) mg/dL Creatinine 1.43 H (0.52-1.04) mg/dL Est GFR (MDRD) Af Amer 42 (>60 ml/min/1.73 sqM) Est GFR (MDRD) Non-Af 35 (>60 ml/min/1.73 sqM) Glucose 103 H (74-99) mg/dL Calcium 9.1 (8.4-10.2) mg/dL Magnesium 1.9 (1.6-2.3) mg/dL Total Bilirubin 0.8 (0.2-1.3) mg/dL AST 35 (14-36) U/L ALT 41 (9-52) U/L Alkaline Phosphatase 83 (38-126) U/L Total Creatine Kinase 110 (30-135) U/L CK-MB (CK-2) 2.0 (0.0-2.4) ng/mL CK-MB (CK-2) Rel Index 1.8 Troponin I <0.012 (0.000-0.034) ng/mL NT-Pro-B Natriuret Pep pg/mL Total Protein 6.3 (6.3-8.2) g/dL Albumin 4.0 (3.5-5.0) g/dL Stool Occult Blood (Negative) 09/22/16 09/22/16 09/22/16 Range/Units 12:15 12:15 14:20 WBC (3.8-10.6) k/uL RBC (3.80-5.40) m/uL Hgb (11.4-16.0) gm/dL Hct (34.0-46.0) % MCV (80.0-100.0) fL MCH (25.0-35.0) pg MCHC (31.0-37.0) g/dL RDW (11.5-15.5) % Plt Count (150-450) k/uL Neutrophils % % Lymphocytes % % Monocytes % % Eosinophils % % Basophils % % Neutrophils # (1.3-7.7) k/uL Lymphocytes # (1.0-4.8) k/uL Monocytes # (0-1.0) k/uL Eosinophils # (0-0.7) k/uL Basophils # (0-0.2) k/uL Hypochromasia PT 11.9 (9.0-12.0) sec INR 1.2 (<1.1) APTT 22.6 (22.0-30.0) sec Sodium (137-145) mmol/L Potassium (3.5-5.1) mmol/L Chloride (98-107) mmol/L Carbon Dioxide (22-30) mmol/L Anion Gap mmol/L BUN (7-17) mg/dL Creatinine (0.52-1.04) mg/dL Est GFR (MDRD) Af Amer (>60 ml/min/1.73 sqM) Est GFR (MDRD) Non-Af (>60 ml/min/1.73 sqM) Glucose (74-99) mg/dL Calcium (8.4-10.2) mg/dL Magnesium (1.6-2.3) mg/dL Total Bilirubin (0.2-1.3) mg/dL AST (14-36) U/L ALT (9-52) U/L Alkaline Phosphatase (38-126) U/L Total Creatine Kinase (30-135) U/L CK-MB (CK-2) (0.0-2.4) ng/mL CK-MB (CK-2) Rel Index Troponin I (0.000-0.034) ng/mL NT-Pro-B Natriuret Pep 849 pg/mL Total Protein (6.3-8.2) g/dL Albumin (3.5-5.0) g/dL Stool Occult Blood Positive H (Negative) Disposition Clinical Impression: Anemia, Peripheral edema, GI bleed Disposition: ADMITTED IP TO THIS HOSP Referrals: Raulito Alcantar DO [Primary Care Provider] - 1-2 days Time of Disposition: 15:31
[2016-09-22 12:48] LABS: Basophils # (A) 0.1 k/uL (0-0.2); Basophils % (A) 1 %; CH 31.2; CHCM 32.9; Eosinophils % (A) 1 %; HCT 29.9 % (34.0-46.0); HDW 3.39; Hypochromasia Slight; Luc # (Auto) 0.09; Luc % (Auto) 2; Lymphocytes # (A) 0.9 k/uL (1.0-4.8); Lymphocytes % (A) 23 %; MCH 31.8 pg (25.0-35.0); MCHC 33.3 g/dL (31.0-37.0); MCV 95.5 fL (80.0-100.0); Mean Platelet Volume 8.3; Monocytes # (A) 0.3 k/uL (0-1.0); Monocytes % (A) 8 %; Neutrophils # (A) 2.5 k/uL (1.3-7.7); Neutrophils % (A) 65 %; RBC 3.12 m/uL (3.80-5.40); RDW 14.5 % (11.5-15.5); WBC 3.8 k/uL (3.8-10.6); WBC (Perox) 3.91
--- NOTE | 2016-09-22 12:49 | XR ---
EXAMINATION TYPE: XR chest 2V DATE OF EXAM: 09/22/2016 HISTORY: Chest Pain. REFERENCE: Previous study dated 08/25/2016. FINDINGS: The lungs are overinflated. The heart is mildly prominent. There is mild vascular congestio n without edema. There is some left basilar airspace disease either representing atelectasis or early pneumonia. The right lung is clear. Pleural spaces are clear. IMPRESSION: 1. COPD. 2. MILD CARDIOMEGALY. 3. VASCULAR CONGESTION WITHOUT EDEMA. 4. LEFT BASILAR AIRSPACE DISEASE.
[2016-09-22 12:55] LABS: Calcium 9.1 mg/dL (8.4-10.2); HGB 9.9 gm/dL (11.4-16.0); Magnesium 1.9 mg/dL (1.6-2.3); Potassium 3.6 mmol/L (3.5-5.1); Total Bilirubin 0.8 mg/dL (0.2-1.3); Total Protein 6.3 g/dL (6.3-8.2)
[2016-09-22 12:58] LABS: INR 1.2 (<1.1); Partial Thromboplastin Time 22.6 sec (22.0-30.0); Prothrombin Time 11.9 sec (9.0-12.0)
[2016-09-22 13:07] LABS: Creatine Kinase 110 U/L (30-135)
[2016-09-22 13:19] LABS: Troponin I <0.012 ng/mL (0.000-0.034)
[2016-09-22] MEDS ORDERED: SODIUM CHLORIDE 0.9% 1,000 ML IV ONE (15:32)
[2016-09-22 17:10] VITALS: RESP 16
[2016-09-22 17:22] LABS: Basophils # (A) 0.1 k/uL (0-0.2); Basophils % (A) 1 %; CH 31.1; CHCM 32.9; Eosinophils # (A) 0.1 k/uL (0-0.7); Eosinophils % (A) 2 %; HCT 33.6 % (34.0-46.0); HDW 3.38; Hypochromasia Slight; Luc # (Auto) 0.09; Luc % (Auto) 2; Lymphocytes # (A) 1.1 k/uL (1.0-4.8); Lymphocytes % (A) 26 %; MCH 31.1 pg (25.0-35.0); MCHC 32.7 g/dL (31.0-37.0); MCV 95.2 fL (80.0-100.0); Monocytes # (A) 0.4 k/uL (0-1.0); Monocytes % (A) 8 %; Neutrophils # (A) 2.6 k/uL (1.3-7.7); Neutrophils % (A) 61 %; RBC 3.52 m/uL (3.80-5.40); RDW 14.4 % (11.5-15.5); WBC 4.3 k/uL (3.8-10.6); WBC (Perox) 4.29
[2016-09-22] MEDS ORDERED: ALBUTEROL NEBULIZED 2.5 MG/3 ML INHALATION PRN (18:32)
[2016-09-22] MEDS ORDERED: NITROGLYCERIN SL TABS 0.4 MG TAB SUBLINGUAL PRN (18:32)
--- NOTE | 2016-09-22 18:58 | P.HPIM ---
History of Present Illness H&P Date: 09/22/16 Chief Complaint: Edema of the legs This is a pleasant 81-year-old patient well known to be from multiple admissions. Patient chronic stable medical conditions include chronic kidney disease, congestive heart failure, coronary artery disease, atrial fibrillation , pulmonary hypertension and follows a Dr. 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 Patient's presents with swelling of the lower extremities more so the left leg and decided to come in. Denies increased shortness of breath from her baseline. Denies belly swelling. Denies any pain and lower extremities. Denies any fever. Patient has been on anticoagulation and states for some time has noticed black stools. In the ER patient noticed to drop her hemoglobin by more than 3 units from last time she was here not long ago and now admitted for the same. Patient is feeling tired and rundown. Significant past medical history: Atrial fibrillation, osteoarthritis, chronic kidney disease, COPD, moderate tricuspid regurgitation, secondary pulmonary hypertension, coronary artery disease Review of Systems GEN.: tired EYES: None HEENT: None NECK: None RESPIRATORY: None CARDIOVASCULAR: None GASTROINTESTINAL: Dark stools GENITOURINARY: None MUSCULOSKELETAL: Pain in the joints LYMPHATICS: None HEMATOLOGICAL: Chronic bruising on the skin PSYCHIATRY: Anxious NEUROLOGICAL: None Past Medical History Past Medical History: Atrial Fibrillation, Coronary Artery Disease (CAD), Heart Failure, COPD, Hearing Disorder / Deafness, Hyperlipidemia, Hypertension, Myocardial Infarction ([place]), Pneumonia, Renal Disease, Respiratory Disorder Additional Past Medical History / Comment(s): Generalized anxiety disorder, hearing impaired, generalized anxiety disorder, CHF with an ejection fraction of 20-25%, nonocclusive coronary artery disease, diverticulosis, paroxysmal atrial fibrillation, osteoarthritis, BRONCHITIS, HOME 02 2 LITERS N/C AT NIGHT, rosacea, arthritis, nstemi Last Myocardial Infarction Date:: unsure of date History of Any Multi-Drug Resistant Organisms: None Reported Past Surgical History: Adenoidectomy, Appendectomy, Hysterectomy, Orthopedic Surgery, Tonsillectomy Additional Past Surgical History / Comment(s): Right knee arthroscopy for torn meniscus. Colonoscopies x 3 total. Bilateral eyelid surgery. PARTIAL HYSTERECTOMY STILL HAS PART OF LT OVARY Past Anesthesia/Blood Transfusion Reactions: No Reported Reaction Additional Past Anesthesia/Blood Transfusion Reaction / Comment(s): Pt has never recieved blood. Smoking Status: Former smoker - Past Family History Father Family Medical History: Cancer Additional Family Medical History / Comment(s): Father at age 77yrs of cancer which pt believes may have started in his throat. Mother Family Medical History: Dementia Additional Family Medical History / Comment(s): Mother at age 95yrs. She was very healthy most of her life- she had dementia at the very end of her life. Medications and Allergies Home Medications Medication Instructions Recorded Confirmed Type Albuterol Inhaler [Ventolin Hfa 2 puff INHALATION RT-QID PRN 03/25/16 09/22/16 History Inhaler] Fluticasone/Salmeterol [Advair 1 puff INHALATION RT-BID 03/25/16 09/22/16 History 250-50 Diskus] LORazepam [Ativan] 1 mg PO BID PRN 03/25/16 09/22/16 History Amiodarone [Cordarone] 200 mg PO DAILY 07/03/16 09/22/16 History Apixaban [Eliquis] 2.5 mg PO BID 07/03/16 09/22/16 History Furosemide [Lasix] 40 mg PO DAILY 08/19/16 09/22/16 History Tiotropium 18 Mcg/Puff [Spiriva] 1 cap INHALATION RT-DAILY 08/19/16 09/22/16 History Allergies Allergy/AdvReac Type Severity Reaction Status Date / Time cefuroxime axetil Allergy Unknown Verified 09/22/16 12:08 [From Ceftin] Physical Exam Vitals: Vital Signs Temp Pulse Pulse Resp BP BP Pulse Ox 09/22/16 17:10 96.1 F L 63 16 142/63 98 09/22/16 16:15 97.4 F L 54 L 18 149/62 98 09/22/16 14:25 52 L 18 155/67 98 09/22/16 13:17 97.7 F 53 L 18 113/58 97 09/22/16 12:28 52 L 20 124/60 97 09/22/16 11:32 97.7 F 54 L 16 114/56 99 Patient Weight 09/23/16 06:59 Weight 68.039 kg VITAL SIGNS: Reviewed. BMI noted GENERAL: Average built, sitting up, diet. EYES: Pupils equal. Conjunctiva palel. HEENT: External appearance of nose and ears normal, oral cavity grossly normal. NECK: JVD not raised; masses not palpable. HEART: First and second heart sounds are normal; some peripheral edema. LUNGS: Respiratory rate normal; decreased breath sounds. ABDOMEN: Soft, nontender, liver spleen not palpable, no masses palpable. LYMPHATICS: No lymph nodes palpable in the axilla and neck. PSYCH: Alert and oriented x3; mood and affect normal. NEUROLOGICAL: Cranial nerves grossly intact; no facial asymmetry, power and sensation grossly intact. DERMATOLOGICAL: Superficial bruising in the extremities Results CBC & Chem 7: 09/22/16 16:50 09/22/16 12:15 Labs: Labs white count 3.8 hemoglobin 9.9 his hemoglobin was 13.6 on 08/25/16. 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 Serial H&H will be done. Other home medications be resumed. Care was discussed with the patient. GI is being consulted.
[2016-09-22] MEDS: SYMBICORT 80-4.5 MCG INHALER INHALATION SCH (19:38)
[2016-09-22] MEDS: IPRATROPIUM-ALBUTEROL 3 ML NEB INHALATION PRN (19:38)
[2016-09-22] MEDS: ATORVASTATIN 40 MG TAB PO SCH (20:26)
[2016-09-22] MEDS: METOPROLOL TARTRATE 50 MG TAB PO SCH (20:26)
[2016-09-22] MEDS ORDERED: METOPROLOL TARTRATE 25 MG TAB PO SCH (21:00)
[2016-09-22] MEDS ORDERED: APIXABAN 2.5 MG TABLET PO SCH (21:00)
--- NOTE | 2016-09-22 21:53 | P.CNPUL ---
History of Present Illness Consult date: 09/22/16 Requesting physician: Ryan Weller Reason for consult: COPD, pulmonary hypertension, other (Bilateral peripheral edema.) Chief complaint: Increased swelling in lower extremities, and at least 2 pound weight gain. History of present illness: This is an 81-year-old female with history of COPD, FEV1 is 47%, maintained normally on Advair and Spiriva on outpatient basis. Patient was last admitted about a month ago, and she was seen by Dr. Crouch on consultation. At the time the patient was noted to have congestive heart failure, new onset atrial fibrillation and RVR. At the time the patient was treated with amiodarone, and her echocardiogram showed LV dysfunction, ejection fraction was 20-25%. CT angiogram of the chest and back negative for pulmonary embolism. Patient is also on long-term anticoagulation in the form of eliquis. This time the patient was admitted mostly with symptoms of increased swelling in lower extremities, left more so than right, some shortness of breath, not much different from baseline. Patient denied any fever, no chills, no hemoptysis, no chest pain. Hemoglobin in the ER was noted to be 9.9, however follow-up hemoglobin was noted to be about 11. At any rate considering the patient's multiple medical problems including COPD, cardiomyopathy and LV dysfunction, increased swelling in lower extremities, patient was admitted and this consult was initiated. Pulmonary-neumann, patient is basically about her baseline. She has no cough no wheezing and on physical examination she sounded quite clear. Review of Systems Constitutional: tired, no weight loss, no fever, no chills, HEENT: No neck pain, no sore throat, no headache, no blurred vision, no dizziness. RESPIRATORY: Chronic shortness of breath on exertion related to COPD pulmonary hypertension and cardiomyopathy. CARDIOVASCULAR: Increased swelling in lower extremities. No palpitations. No chest pain. GASTROINTESTINAL: Dark stools GENITOURINARY: No dysuria and no frequency no urgency. MUSCULOSKELETAL: Pain in the joints LYMPHATICS: None HEMATOLOGICAL: Easy bruising, no clotting, no history of thromboembolic disease. PSYCHIATRY: No symptoms of active depression. NEUROLOGICAL: No headaches no blurred vision no dizziness no seizures. Past Medical History Past Medical History: Atrial Fibrillation, Coronary Artery Disease (CAD), Heart Failure, COPD, Hearing Disorder / Deafness, Hyperlipidemia, Hypertension, Myocardial Infarction ([place]), Pneumonia, Renal Disease, Respiratory Disorder Additional Past Medical History / Comment(s): Generalized anxiety disorder, hearing impaired, generalized anxiety disorder, CHF with an ejection fraction of 20-25%, nonocclusive coronary artery disease, diverticulosis, paroxysmal atrial fibrillation, osteoarthritis, BRONCHITIS, HOME 02 2 LITERS N/C AT NIGHT, rosacea, arthritis, nstemi Last Myocardial Infarction Date:: unsure of date History of Any Multi-Drug Resistant Organisms: None Reported Past Surgical History: Adenoidectomy, Appendectomy, Hysterectomy, Orthopedic Surgery, Tonsillectomy Additional Past Surgical History / Comment(s): Right knee arthroscopy for torn meniscus. Colonoscopies x 3 total. Bilateral eyelid surgery. PARTIAL HYSTERECTOMY STILL HAS PART OF LT OVARY Past Anesthesia/Blood Transfusion Reactions: No Reported Reaction Additional Past Anesthesia/Blood Transfusion Reaction / Comment(s): Pt has never recieved blood. Smoking Status: Former smoker - Past Family History Father Family Medical History: Cancer Additional Family Medical History / Comment(s): Father at age 77yrs of cancer which pt believes may have started in his throat. Mother Family Medical History: Dementia Additional Family Medical History / Comment(s): Mother at age 95yrs. She was very healthy most of her life- she had dementia at the very end of her life. Medications and Allergies Home Medications Medication Instructions Recorded Confirmed Type Albuterol Inhaler [Ventolin Hfa 2 puff INHALATION RT-QID PRN 03/25/16 09/22/16 History Inhaler] Fluticasone/Salmeterol [Advair 1 puff INHALATION RT-BID 03/25/16 09/22/16 History 250-50 Diskus] LORazepam [Ativan] 1 mg PO BID PRN 03/25/16 09/22/16 History Amiodarone [Cordarone] 200 mg PO DAILY 07/03/16 09/22/16 History Apixaban [Eliquis] 2.5 mg PO BID 07/03/16 09/22/16 History Furosemide [Lasix] 40 mg PO DAILY 08/19/16 09/22/16 History Tiotropium 18 Mcg/Puff [Spiriva] 1 cap INHALATION RT-DAILY 08/19/16 09/22/16 History Allergies Allergy/AdvReac Type Severity Reaction Status Date / Time cefuroxime axetil Allergy Unknown Verified 09/22/16 12:08 [From Ceftin] Physical Exam Vitals: Vital Signs Temp Pulse Pulse Resp BP BP Pulse Ox 09/22/16 19:57 63 09/22/16 19:42 63 09/22/16 17:10 96.1 F L 63 16 142/63 98 09/22/16 16:15 97.4 F L 54 L 18 149/62 98 09/22/16 14:25 52 L 18 155/67 98 09/22/16 13:17 97.7 F 53 L 18 113/58 97 09/22/16 12:28 52 L 20 124/60 97 09/22/16 11:32 97.7 F 54 L 16 114/56 99 Intake and Output 09/22/16 09/22/16 09/22/16 06:59 14:59 22:59 Other: Weight 68.039 kg Patient Weight 09/23/16 06:59 Weight 68.039 kg Physical Exam revealed an 81-year-old female on room air, in no form of respiratory distress. HEENT:[Neck is supple.] [No neck masses.] [No thyromegaly.] [No JVD.] Chest: [Diminished breath sounds at the bases, no crackles or rhonchi or wheezes. Cardiac Exam: [Normal S1 and S2, no S3 gallop, no murmur.] Abdomen: [Soft, nontender, no megaly, no rebound, no guarding, normal bowel sounds.] Extremities: [1+ bipedal edema, some erythema noted in both lower extremities, left more so than right..] Neurological Exam: [No focal neurologic deficit.] Skin: Superficial bruising noted in both upper and lower extremities. Results - Laboratory Findings CBC and BMP: 09/22/16 16:50 09/22/16 12:15 PT/INR, D-dimer PT 11.9 sec (9.0-12.0) 09/22/16 12:15 INR 1.2 (<1.1) 09/22/16 12:15 Abnormal lab findings: Abnormal Labs 09/22/16 09/22/16 09/22/16 12:15 12:15 14:20 RBC 3.12 L Hgb 9.9 L D Hct 29.9 L Lymphocytes # 0.9 L BUN 25 H Creatinine 1.43 H Glucose 103 H Stool Occult Blood Positive H 09/22/16 16:50 RBC 3.52 L Hgb 11.0 L Hct 33.6 L Lymphocytes # BUN Creatinine Glucose Stool Occult Blood - Diagnostic Findings Chest x-ray: image reviewed (Left basilar atelectasis was noted otherwise unremarkable.) Assessment and Plan Plan: Impression: 1 acute on chronic cor pulmonale secondary to pulmonary hypertension, as well as cardiomyopathy and LV dysfunction. 2 history of severe COPD FEV1 is in the range of 47%. 3 history of chronic hypoxic respiratory failure secondary to COPD and pulmonary hypertension as well as LV dysfunction, patient is presently on home O2 at 4 history of paroxysmal atrial fibrillation maintained on medications to control her rate. 5 history of chronic congestive heart failure, secondary to systolic dysfunction. EF is about 40%. 6 history of coronary artery disease 7 history of moderate tricuspid regurgitation and pulmonary hypertension, multifactorial. Related to COPD and the related to LV dysfunction as well as valvular heart disease. 8 anemia most likely secondary to GI blood losses secondary to Anticoagulation therapy, patient will need to be seen by gastroenterology and determine source of her bleeding, and whether the patient could be placed back on anticoagulation therapy in the future. In the meantime hold anticoagulation therapy. 9 acute kidney injury, baseline creatinine is 1.06 about a month ago, and it is now up to 1.43. Suggest nephrology evaluation and avoiding nephrotoxic drugs in the meantime. Recommendation: Agree with the present treatment plan, patient is back on her usual meds including for COPD and other consultations from different consultants are pending. We'll continue to follow. Time with Patient: Greater than 30
[2016-09-22 22:30] LABS: Basophils # (A) 0.1 k/uL (0-0.2); Basophils % (A) 1 %; CH 30.9; CHCM 32.7; Eosinophils # (A) 0.1 k/uL (0-0.7); Eosinophils % (A) 1 %; HCT 32.8 % (34.0-46.0); HDW 3.37; HGB 10.9 gm/dL (11.4-16.0); Hypochromasia Slight; Luc # (Auto) 0.12; Luc % (Auto) 3; Lymphocytes # (A) 1.2 k/uL (1.0-4.8); Lymphocytes % (A) 24 %; MCH 31.6 pg (25.0-35.0); MCHC 33.3 g/dL (31.0-37.0); Mean Platelet Volume 8.2; Monocytes # (A) 0.4 k/uL (0-1.0); Monocytes % (A) 8 %; Neutrophils % (A) 63 %; RBC 3.45 m/uL (3.80-5.40); RDW 14.4 % (11.5-15.5); WBC 4.8 k/uL (3.8-10.6); WBC (Perox) 4.87
[2016-09-22] MEDS: LORazepam 1 MG TAB PO PRN (23:12)
[2016-09-23] MEDS: TIOTROPIUM 18 MCG/PUFF INHALER INHALATION SCH (08:37)
[2016-09-23] MEDS: SYMBICORT 80-4.5 MCG INHALER INHALATION SCH ×2 (08:37→20:29)
[2016-09-23] MEDS: IPRATROPIUM-ALBUTEROL 3 ML NEB INHALATION PRN ×2 (08:37→20:29)
[2016-09-23] MEDS: METOPROLOL TARTRATE 50 MG TAB PO SCH (08:55)
[2016-09-23] MEDS: FUROSEMIDE 40 MG TAB PO SCH (08:56)
[2016-09-23] MEDS: AMIODARONE 200 MG TAB PO SCH (08:56)
[2016-09-23] MEDS: ISOSORBIDE MONONITRATE ER 30 MG TAB.ER.24H PO SCH (08:56)
[2016-09-23] MEDS ORDERED: ASPIRIN 81 MG CHEW PO SCH (09:00)
[2016-09-23] MEDS ORDERED: DICLOXACILLIN 500 MG PO SCH (10:15)
[2016-09-23 11:17] LABS: Basophils % (A) 1 %; CH 31.3; CHCM 32.6; Eosinophils # (A) 0.1 k/uL (0-0.7); Eosinophils % (A) 1 %; HCT 31.7 % (34.0-46.0); HDW 3.35; HGB 10.3 gm/dL (11.4-16.0); Hypochromasia Slight; Luc # (Auto) 0.06; Luc % (Auto) 2; Lymphocytes # (A) 0.7 k/uL (1.0-4.8); Lymphocytes % (A) 17 %; MCH 31.3 pg (25.0-35.0); MCHC 32.5 g/dL (31.0-37.0); MCV 96.4 fL (80.0-100.0); Mean Platelet Volume 8.4; Monocytes # (A) 0.3 k/uL (0-1.0); Monocytes % (A) 7 %; Neutrophils # (A) 2.8 k/uL (1.3-7.7); Neutrophils % (A) 72 %; RBC 3.28 m/uL (3.80-5.40); RDW 14.4 % (11.5-15.5); WBC 3.9 k/uL (3.8-10.6); WBC (Perox) 4.21
--- NOTE | 2016-09-23 11:22 | P.PN ---
Subjective This is an 81-year-old female with history of COPD, FEV1 is 47%, maintained normally on Advair and Spiriva on outpatient basis. Patient was last admitted about a month ago, and she was seen by Dr. Crouch on consultation. At the time the patient was noted to have congestive heart failure, new onset atrial fibrillation and RVR. At the time the patient was treated with amiodarone, and her echocardiogram showed LV dysfunction, ejection fraction was 20-25%. CT angiogram of the chest and back negative for pulmonary embolism. Patient is also on long-term anticoagulation in the form of eliquis. This time the patient was admitted mostly with symptoms of increased swelling in lower extremities, left more so than right, some shortness of breath, not much different from baseline. Patient denied any fever, no chills, no hemoptysis, no chest pain. Hemoglobin in the ER was noted to be 9.9, however follow-up hemoglobin was noted to be about 11. At any rate considering the patient's multiple medical problems including COPD, cardiomyopathy and LV dysfunction, increased swelling in lower extremities, patient was admitted and this consult was initiated. Pulmonary-neumann, patient is basically about her baseline. She has no cough no wheezing and on physical examination she sounded quite clear. The patient is seen again today 09/23/2016 in follow-up on the regular medical floor. She is awake and alert in no acute distress. She is currently sitting up in a chair at the bedside. Pulmonary-neumann she is mainly at her baseline. She is breathing easier today as compared to yesterday. No cough or congestion. No chills or night sweats. She is maintaining good O2 saturations in the upper 90s on room air. She's been afebrile. No leukocytosis. Her stool was positive for occult blood. Her hemoglobin was stable at 10.9 last evening. Objective - Vital Signs Vital signs: Vital Signs Temp 97.6 F 09/23/16 07:00 Pulse 62 09/23/16 08:48 Resp 16 09/23/16 07:00 BP 115/54 09/23/16 07:00 Pulse Ox 96 09/23/16 08:37 Intake & Output 09/22/16 09/23/16 09/23/16 18:59 06:59 18:59 Intake Total 200 Balance 200 Weight 68.039 kg Intake: Oral 200 Other: Voiding Method Toilet # Voids 1 - Exam GENERAL EXAM: Alert, active, comfortable in no apparent distress. HEAD: Normocephalic. EYES: Normal reaction of pupils, equal size. NOSE: Clear with pink turbinates. THROAT: No erythema or exudates. NECK: No masses, no JVD. CHEST: No chest wall deformity. LUNGS: Equal air entry with no crackles, wheeze, rhonchi or dullness. CVS: S1 and S2 normal with no audible mumurs, regular rhythm. ABDOMEN: No hepatosplenomegaly, normal bowel sounds, no guarding or rigidity. SPINE: No scoliosis or deformity SKIN: No rashes CENTRAL NERVOUS SYSTEM: No focal deficits, tone is normal in all 4 extremities. Extremities: There is no significant peripheral edema. No clubbing, no cyanosis. Peripheral pulses are intact. - Labs CBC & Chem 7: 09/22/16 21:42 09/22/16 12:15 Labs: Abnormal Lab Results - Last 24 Hours (Table) 09/22/16 09/22/16 09/22/16 Range/Units 12:15 12:15 14:20 RBC 3.12 L (3.80-5.40) m/uL Hgb 9.9 L D (11.4-16.0) gm/dL Hct 29.9 L (34.0-46.0) % Lymphocytes # 0.9 L (1.0-4.8) k/uL BUN 25 H (7-17) mg/dL Creatinine 1.43 H (0.52-1.04) mg/dL Glucose 103 H (74-99) mg/dL Stool Occult Blood Positive H (Negative) 09/22/16 09/22/16 Range/Units 16:50 21:42 RBC 3.52 L 3.45 L (3.80-5.40) m/uL Hgb 11.0 L 10.9 L (11.4-16.0) gm/dL Hct 33.6 L 32.8 L (34.0-46.0) % Lymphocytes # (1.0-4.8) k/uL BUN (7-17) mg/dL Creatinine (0.52-1.04) mg/dL Glucose (74-99) mg/dL Stool Occult Blood (Negative) Assessment and Plan Plan: Impression: 1 acute on chronic cor pulmonale secondary to pulmonary hypertension, as well as cardiomyopathy and LV dysfunction. 2 history of severe COPD FEV1 is in the range of 47%. 3 history of chronic hypoxic respiratory failure secondary to COPD and pulmonary hypertension as well as LV dysfunction, patient is presently on home O2 at 4 history of paroxysmal atrial fibrillation maintained on medications to control her rate. 5 history of chronic congestive heart failure, secondary to systolic dysfunction. EF is about 40%. 6 history of coronary artery disease 7 history of moderate tricuspid regurgitation and pulmonary hypertension, multifactorial. Related to COPD and the related to LV dysfunction as well as valvular heart disease. 8 anemia most likely secondary to GI blood losses secondary to Anticoagulation therapy, patient will need to be seen by gastroenterology and determine source of her bleeding, and whether the patient could be placed back on anticoagulation therapy in the future. In the meantime hold anticoagulation therapy. 9 acute kidney injury, baseline creatinine is 1.06 about a month ago, and it is now up to 1.43. Suggest nephrology evaluation and avoiding nephrotoxic drugs in the meantime. Plan: The patient was seen and evaluated by Dr. Vick. We'll continue with her current pulmonary medications. We'll await further input from GI services. We' ll continue to follow.
[2016-09-23] MEDS: DICLOXACILLIN 250 MG PO SCH ×3 (12:04→23:01)
--- NOTE | 2016-09-23 14:41 | ECHOF ---
Referral Reason:cm MEASUREMENTS -------- HEIGHT: 170.2 cm WEIGHT: 68.0 kg BP: 115/54 RVIDd: 3.0 cm (< 3.3) IVSd: 1.0 cm (0.6 - 1.1) LVIDd: 4.8 cm (3.9 - 5.3) LVPWd: 1.0 cm (0.6 - 1.1) IVSs: 1.5 cm LVIDs: 3.2 cm LVPWs: 1.6 cm LA Diam: 3.5 cm (2.7 - 3.8) LAESV Index (A-L): 25.48 ml/m Ao Diam: 3.2 cm (2.0 - 3.7) AV Cusp: 2.2 cm (1.5 - 2.6) MV EXCURSION: 13.666 mm (> 18.000) MV EF SLOPE: 78 mm/s (70 - 150) EPSS: 0.6 cm MV E Suraj: 0.84 m/s MV DecT: 342 ms MV A Suraj: 0.84 m/s MV E/A Ratio: 0.99 AR PHT: 789 ms RAP: 5.00 mmHg RVSP: 37.78 mmHg FINDINGS -------- Sinus rhythm. This was a technically good study. The left ventricular size is normal. Left ventricular wall thickness is normal. Overall left ventricular systolic function is normal with, an EF between 55 - 60 %. The right ventricle is normal in size. Normal LA size by volume 22+/-6 ml/m2. The right atrium is normal in size. There is mild aortic valve sclerosis. There is mild aortic regurgitation. Mild mitral annular calcification present. Mild mitral regurgitation is present. Mild tricuspid regurgitation present. There is mild pulmonary hypertension. The right ventricular systolic pressure, as measured by Doppler, is 37.78mmHg. Trace/mild (physiologic) pulmonic regurgitation. The aortic root size is normal. Normal inferior vena cava with normal inspiratory collapse consistent with estimated right atrial pressure of 5 mmHg. There is no pericardial effusion. CONCLUSIONS -------- 1. Sinus rhythm. 2. Mild tricuspid regurgitation present. 3. There is mild pulmonary hypertension. 4. The right ventricular systolic pressure, as measured by Doppler, is 37.78mmHg. 5. Trace/mild (physiologic) pulmonic regurgitation. 6. The aortic root size is normal. 7. Normal inferior vena cava with normal inspiratory collapse consistent with estimated right atrial pressure of 5 mmHg. 8. There is no pericardial effusion. 9. This was a technically good study. 10. The left ventricular size is normal. 11. Overall left ventricular systolic function is normal with, an EF between 55 - 60 %. 12. Normal LA size by volume 22+/-6 ml/m2. 13. There is mild aortic valve sclerosis. 14. There is mild aortic regurgitation. 15. Mild mitral annular calcification present. 16. Mild mitral regurgitation is present. HAND SPRING REPAIRER: Leatha Richardson RDCS
--- NOTE | 2016-09-23 16:53 | P.PN ---
<Seema Rios - Last Filed: 09/23/16 16:29> Progress Note - Text DATE OF SERVICE: 09/23/2016 PRESENTING COMPLAINT: Edema to lower extremities INTERVAL HISTORY: This is an 81-year-old patient who presented with swelling of her lower extremities more so to the left and right. Patient's on anticoagulation and states noticing black stools. Hemoglobin dropped I more than 3 g from the last time she was here. Endorses feeling tired and rundown. 09/23/2016: Patient sitting up in a chair at the bedside, very angry, demanding to know why she is not on antibiotic therapy. Patient's belief is that she has a cellulitis to her left leg, which she believes requires treatment, with antibiotic therapy. BUREAU CHIEF attempted to explain the perils of overuse of antibiotics, however patient was not interested. BUREAU CHIEF informed patient that she would discuss her case with attending and formulate a new plan of care. Patient does not have any other complaints, pain, issues at this time, per her report. REVIEW OF SYSTEMS: Done for constitutional ,cardiovascular, GI, pulmonary with relevant findings as above. CURRENT MEDICATIONS DuoNeb, amiodarone, Lipitor, Lasix, Imdur, Ativan, Lopressor, dicloxacillin. PHYSICAL EXAM VITAL SIGNS: Temperature 97.6, pulse 56, respiratory rate 16, blood pressure 115/54, oxygen saturation 97% on room air. GENERAL APPEARANCE: Sitting in a chair at the end of the bed, very angry, annoyed. EYES: Pupils equal. Conjunctiva normal. NECK: JVD not raised. Mass not palpable. RESPIRATORY: Respiratory effort normal. Lungs diminished bilaterally to auscultation. CARDIOVASCULAR: First and second sounds normal. Some peripheral edema noted to lower extremities left greater than right. ABDOMEN: Soft. Liver and spleen not palpable. No tenderness. No mass palpable. PSYCHIATRY: Alert and oriented x3. Mood and affect normal. INVESTIGATIONS: White blood cell count 3.9, hemoglobin 10.3 ECHOCARDIOGRAM: Sinus rhythm, EF between 55 and 60%, mild mitral regurgitation. 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 PLAN: Hemoglobin is stable, await input from GI prior to placing patient back on anticoagulation for paroxysmal atrial fibrillation, however patient is in normal sinus rhythm at the current time. Remains in sinus rhythm at this time, echocardiogram completed with EF of 55-60%. Left lower extremity redness, possible cellulitis source unknown, discussion had with attending physician regarding antibiotic use, it is unclear if this is in fact cellulitis or some other skin abnormality. Therefore, antibiotics added to the regimen. Tentative discharge planning for 09/24/2016. BUREAU CHIEF statement: Patient was seen and examined by nurse practitioner Seema Rios and all elements of the case discussed with attending Dr. Weller <Ryan Weller - Last Filed: 09/23/16 20:09> Progress Note - Text Attending note. Date of service-09/24/2016 This patient was seen and examined by me today. I reviewed the note of my nurse practitioner, Ms. Rios. Discussed with her, additional findings as below. Admitted with acute GI bleed probably from being on anticoagulation. Patient is having dark stools. Earlier today patient insisted to my nurse practitioner to get antibiotics for what she thought was ordered to be cellulitis and was put on penicillin. I had explained to the patient yesterday that the redness to the lower extremity was most likely from being on blood thinners and I didn' t feel it was cellulitis. On examination: Lower extremity shows some light bruising felt to be from anticoagulation. No localized increased temperature. Investigations: White count 3.9, hemoglobin 10.3 Assessment and plan: Acute blood loss anemia felt to be from anticoagulation for underlying atrial fibrillation. Patient is insistent on getting antibody for lower extremity only given a short course in my view she really doesn't need it. Recheck hemoglobin in the morning
--- NOTE | 2016-09-23 18:57 | P.CONS ---
History of Present Illness - Reason for Consult Consult date: 09/22/16 - History of Present Illness The patient is an 81-year-old patient who presented with swelling of her LE Lt > Rt and reported dark stools. She dropped her Hb by 3 Gm compared to a recent level. Has history of CHF and atrial fibrillation on anticoagulation. Had no abdominal pain or any nausea, vomiting or hematemesis. Patient reported feeling tired and run down. Had three prior colonoscopies but no prior upper endoscopy. Review of Systems REVIEW OF SYSTEMS: CARDIOPULMONARY: No chest pain or shortness of breath. GENITOURINARY: No dysuria or hematuria. MUSCULOSKELETAL: Unremarkable. SKIN: Unremarkable. ENDOCRINE: Unremarkable. PSYCHIATRIC: Unremarkable. NEUROLOGY: Unremarkable. ENT: Vision unremarkable. CONSTITUTIONAL: No recent weight loss. No fever, chills, night sweats. Past Medical History Past Medical History: Atrial Fibrillation, Coronary Artery Disease (CAD), Heart Failure, COPD, Hearing Disorder / Deafness, Hyperlipidemia, Hypertension, Myocardial Infarction (CT), Pneumonia, Renal Disease, Respiratory Disorder Additional Past Medical History / Comment(s): Generalized anxiety disorder, hearing impaired, generalized anxiety disorder, CHF with an ejection fraction of 20-25%, nonocclusive coronary artery disease, diverticulosis, paroxysmal atrial fibrillation, osteoarthritis, BRONCHITIS, HOME 02 2 LITERS N/C AT NIGHT, rosacea, arthritis, nstemi Last Myocardial Infarction Date:: unsure of date History of Any Multi-Drug Resistant Organisms: None Reported Past Surgical History: Adenoidectomy, Appendectomy, Hysterectomy, Orthopedic Surgery, Tonsillectomy Additional Past Surgical History / Comment(s): Right knee arthroscopy for torn meniscus. Colonoscopies x 3 total. Bilateral eyelid surgery. PARTIAL HYSTERECTOMY STILL HAS PART OF LT OVARY Past Anesthesia/Blood Transfusion Reactions: No Reported Reaction Additional Past Anesthesia/Blood Transfusion Reaction / Comm: Pt has never recieved blood. Smoking Status: Former smoker - Past Family History Father Family Medical History: Cancer Additional Family Medical History / Comment(s): Father at age 77yrs of cancer which pt believes may have started in his throat. Mother Family Medical History: Dementia Additional Family Medical History / Comment(s): Mother at age 95yrs. She was very healthy most of her life- she had dementia at the very end of her life. Medications and Allergies Home Medications Medication Instructions Recorded Confirmed Type Albuterol Inhaler [Ventolin Hfa 2 puff INHALATION RT-QID PRN 03/25/16 09/22/16 History Inhaler] Fluticasone/Salmeterol [Advair 1 puff INHALATION RT-BID 03/25/16 09/22/16 History 250-50 Diskus] LORazepam [Ativan] 1 mg PO BID PRN 03/25/16 09/22/16 History Amiodarone [Cordarone] 200 mg PO DAILY 07/03/16 09/22/16 History Apixaban [Eliquis] 2.5 mg PO BID 07/03/16 09/22/16 History Furosemide [Lasix] 40 mg PO DAILY 08/19/16 09/22/16 History Tiotropium 18 Mcg/Puff [Spiriva] 1 cap INHALATION RT-DAILY 08/19/16 09/22/16 History Allergies Allergy/AdvReac Type Severity Reaction Status Date / Time cefuroxime axetil Allergy Unknown Verified 09/22/16 12:08 [From Ceftin] Physical Exam Vitals: Vital Signs Temp Pulse Pulse Resp BP BP Pulse Ox 09/22/16 19:57 63 09/22/16 19:42 63 09/22/16 17:10 96.1 F L 63 16 142/63 98 09/22/16 16:15 97.4 F L 54 L 18 149/62 98 09/22/16 14:25 52 L 18 155/67 98 09/22/16 13:17 97.7 F 53 L 18 113/58 97 09/22/16 12:28 52 L 20 124/60 97 09/22/16 11:32 97.7 F 54 L 16 114/56 99 Intake and Output 09/22/16 09/22/16 09/23/16 14:59 22:59 06:59 Other: Weight 68.039 kg Patient Weight 09/23/16 06:59 Weight 68.039 kg On physical examination, patient appears comfortable in no apparent distress. Vital signs are stable. HEENT: Unremarkable. Conjunctivae pink. Sclerae anicteric. Oral cavity no lesions. NECK: No JVD or lymph node enlargement. CHEST: Clear to auscultation. HEART: Regular rate and rhythm. ABDOMEN: Soft. Bowel sounds are positive. No organomegaly. No ascites. EXTREMITIES: Stasis changes and piting edema pedally and pre-tibially. SKIN: No rashes. NEUROLOGIC: Alert and oriented x3. No focal deficits. Results CBC & Chem 7: 09/24/16 07:15 09/24/16 07:13 Labs: Abnormal Lab Results - Last 24 Hours (Table) 09/22/16 09/22/16 09/22/16 Range/Units 12:15 12:15 14:20 RBC 3.12 L (3.80-5.40) m/uL Hgb 9.9 L D (11.4-16.0) gm/dL Hct 29.9 L (34.0-46.0) % Lymphocytes # 0.9 L (1.0-4.8) k/uL BUN 25 H (7-17) mg/dL Creatinine 1.43 H (0.52-1.04) mg/dL Glucose 103 H (74-99) mg/dL Stool Occult Blood Positive H (Negative) 09/22/16 09/22/16 Range/Units 16:50 21:42 RBC 3.52 L 3.45 L (3.80-5.40) m/uL Hgb 11.0 L 10.9 L (11.4-16.0) gm/dL Hct 33.6 L 32.8 L (34.0-46.0) % Lymphocytes # (1.0-4.8) k/uL BUN (7-17) mg/dL Creatinine (0.52-1.04) mg/dL Glucose (74-99) mg/dL Stool Occult Blood (Negative) Assessment and Plan Plan: 81-year old female with GI bleeding and drop in Hb likely related to gastritis or PUD made worse by anticoagulation. Agree with your current management. She is already on acid suppressant medication. Will check labs and overall course. Contingency EGD in the hospital or as outpatient. I will discuss with you and F/ U with you with interest.
[2016-09-23] MEDS: METOPROLOL TARTRATE 25 MG TAB PO SCH (20:04)
[2016-09-23] MEDS: ATORVASTATIN 40 MG TAB PO SCH (20:04)
[2016-09-23] MEDS: LORazepam 1 MG TAB PO PRN (23:01)
[2016-09-24 07:45] VITALS: BP 159/67; TEMP 97.3
[2016-09-24 08:01] LABS: Basophils % (A) 1 %; CH 30.6; CHCM 32.2; Eosinophils # (A) 0.1 k/uL (0-0.7); Eosinophils % (A) 2 %; HCT 31.4 % (34.0-46.0); HDW 3.44; HGB 10.4 gm/dL (11.4-16.0); Hypochromasia Slight; Luc % (Auto) 3; Lymphocytes % (A) 26 %; MCH 31.7 pg (25.0-35.0); MCHC 33.1 g/dL (31.0-37.0); MCV 95.6 fL (80.0-100.0); Mean Platelet Volume 8.2; Monocytes # (A) 0.3 k/uL (0-1.0); Monocytes % (A) 9 %; Neutrophils # (A) 2.2 k/uL (1.3-7.7); Neutrophils % (A) 59 %; Poikilocytosis Slight; RBC 3.28 m/uL (3.80-5.40); RDW 14.3 % (11.5-15.5); WBC 3.6 k/uL (3.8-10.6); WBC (Perox) 3.65
[2016-09-24 08:10] LABS: Calcium 9.3 mg/dL (8.4-10.2); Potassium 3.9 mmol/L (3.5-5.1)
[2016-09-24] MEDS: TIOTROPIUM 18 MCG/PUFF INHALER INHALATION SCH (08:11)
[2016-09-24] MEDS: SYMBICORT 80-4.5 MCG INHALER INHALATION SCH (08:11)
[2016-09-24] MEDS: IPRATROPIUM-ALBUTEROL 3 ML NEB INHALATION PRN ×2 (08:11→12:02)
[2016-09-24 08:54] LABS: Manual Review Performed
[2016-09-24] MEDS: DICLOXACILLIN 250 MG PO SCH (09:49)
[2016-09-24] MEDS: ISOSORBIDE MONONITRATE ER 30 MG TAB.ER.24H PO SCH (09:49)
[2016-09-24] MEDS: METOPROLOL TARTRATE 25 MG TAB PO SCH (09:49)
[2016-09-24] MEDS: AMIODARONE 200 MG TAB PO SCH (09:49)
[2016-09-24] MEDS: FUROSEMIDE 40 MG TAB PO SCH (09:49)
[2016-09-24 12:14] VITALS: PULSE 65
[2016-09-24] MEDS: LORazepam 1 MG TAB PO PRN (13:57)
--- NOTE | 2016-09-24 18:00 | P.DS ---
Providers Date of admission: 09/23/16 15:11 Expected date of discharge: 09/24/16 Attending physician: Ryan Weller Consults: 09/22/16 15:32 Consult Physician Urgent Consulting Provider: Dionte Hogue Consult Reason/Comments: GI bleed Do you want consulting provider notified?: Yes Primary care physician: [facility] Course: This is a pleasant 81-year-old patient well known to be from multiple admissions. Patient chronic stable medical conditions include chronic kidney disease, congestive heart failure, coronary artery disease, atrial fibrillation , pulmonary hypertension and follows a Dr. Alcantar as his family doctor and Dr. Pagan as her exterminator helper. Patient's presents with swelling of the lower extremities more so the left leg and decided to come in. Denies increased shortness of breath from her baseline. Denies belly swelling. Denies any pain and lower extremities. Denies any fever. Patient has been on anticoagulation and states for some time has noticed black stools. In the ER patient noticed to drop her hemoglobin by more than 3 units from last time she was here not long ago and now admitted for the same. Patient is feeling tired and rundown. Patient's Eliquis was held. Patient's stool had become brown of the time of discharge. Dr. Hogue from GI conveyed to the nurse that patient can resume Eliquis. Told the patient to watch for bleeding or dark stools. Repeat hemoglobin as an outpatient. Patient was not felt to be in CHF exacerbation and some swelling of lower extremity could be from venous insufficiency. Patient was not felt to have any cellulitis. Day of discharge patient up and about in the hallway doing well. 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 COPD in an ex-smoker Chronic congestive heart failure from systolic dysfunction EF 40% from underlying coronary artery disease Moderate tricuspid regurgitation nondramatic secondary to pulmonary hypertension ; COPD Coronary artery disease with nonobstructive lesion to the LAD from prior cardiac catheterization Rosacea chronic Acute GI bleed from patient being on Eliquis, present on admission Plan - Discharge Summary New Discharge Prescriptions: New Omeprazole [PriLOSEC] 20 mg PO AC-BID #60 cap Continue LORazepam [Ativan] 1 mg PO BID PRN PRN Reason: Anxiety/Insomnia Fluticasone/Salmeterol [Advair 250-50 Diskus] 1 puff INHALATION RT-BID Albuterol Inhaler [Ventolin Hfa Inhaler] 2 puff INHALATION RT-QID PRN PRN Reason: Shortness Of Breath Apixaban [Eliquis] 2.5 mg PO BID Amiodarone [Cordarone] 200 mg PO DAILY Furosemide [Lasix] 40 mg PO DAILY Tiotropium 18 Mcg/Puff [Spiriva] 1 cap INHALATION RT-DAILY Atorvastatin [Lipitor] 40 mg PO HS #30 tab Isosorbide Mononitrate ER [Imdur] 30 mg PO DAILY #30 tab Nitroglycerin Sl Tabs [Nitrostat] 0.4 mg SUBLINGUAL Q5M PRN #30 tab PRN Reason: Chest Pain Ipratropium-Albuterol Nebulize [Duoneb 0.5 mg-3 mg/3 ml Soln] 3 ml INHALATION RT-QID PRN #120 ampul.neb PRN Reason: Wheezing Changed Metoprolol Tartrate [Lopressor] 25 mg PO BID #60 tab Discontinued Aspirin 81 mg PO DAILY Discharge Medication List Albuterol Inhaler [Ventolin Hfa Inhaler] 2 puff INHALATION RT-QID PRN 03/25/16 [ History] Fluticasone/Salmeterol [Advair 250-50 Diskus] 1 puff INHALATION RT-BID 03/25/16 [History] LORazepam [Ativan] 1 mg PO BID PRN 03/25/16 [History] Amiodarone [Cordarone] 200 mg PO DAILY 07/03/16 [History] Apixaban [Eliquis] 2.5 mg PO BID 07/03/16 [History] Furosemide [Lasix] 40 mg PO DAILY 08/19/16 [History] Tiotropium 18 Mcg/Puff [Spiriva] 1 cap INHALATION RT-DAILY 08/19/16 [History] Atorvastatin [Lipitor] 40 mg PO HS #30 tab 08/21/16 [Rx] Isosorbide Mononitrate ER [Imdur] 30 mg PO DAILY #30 tab 08/21/16 [Rx] Nitroglycerin Sl Tabs [Nitrostat] 0.4 mg SUBLINGUAL Q5M PRN #30 tab 08/21/16 [Rx ] Ipratropium-Albuterol Nebulize [Duoneb 0.5 mg-3 mg/3 ml Soln] 3 ml INHALATION RT -QID PRN #120 ampul.neb 08/23/16 [Rx] Metoprolol Tartrate [Lopressor] 25 mg PO BID #60 tab 09/24/16 [Rx] Omeprazole [PriLOSEC] 20 mg PO AC-BID #60 cap 09/24/16 [Rx] Follow up Appointment(s)/Referral(s): Dionte Hogue MD [STAFF PHYSICIAN] - 4 Weeks Raulito Alcantar DO [Primary Care Provider] - 1 Week Ambulatory/Diagnostic Orders: Complete Blood Count w/diff [LAB.AMB] Time Frame: 1 Week, Location: Determined By Patient Patient Instructions/Handouts: Gastrointestinal Bleeding (DC) Activity/Diet/Wound Care/Special Instructions: follow up with Dr. Hogue in one month. If black stool or abdominal pain occurs call his office for earlier appointment or if an emergency go to the ER. OK to restart Eliquis per GI. Start protonix Discharge Disposition: HOME SELF-CARE
--- NOTE | 2016-09-25 08:22 | CONS ---
Mrs. Cagle is an 81-year-old female with a known history of chronic obstructive lung disease, history of paroxysmal atrial fibrillation, nonischemic cardiomyopathy, who presented with progressive peripheral edema on the left side as well as evidence of change in the color of her stool. She has been followed by Dr. Pagan on a regular basis and has underwent a cardiac catheterization by Dr. Pagan in March of this year and was found to have mild to moderate obstructive disease in the LAD. At that time her echocardiogram revealed a severely impaired left ventricular systolic function. Patient has been complaining of worsening edema on the left side. She denies any change in her breathing. She has no PND, no orthopnea. She has home oxygen at night, but not during the day. She has no palpitations, no dizziness or syncope. Her coronary risk factors are remarkable for history of hypertension and hyperlipidemia. She is a nondiabetic. Her medications at home include Eliquis 2.5 mg twice a day, Lipitor 40 mg daily , aspirin 81 mg daily, isosorbide mononitrate 30 mg daily, Lasix 40 mg daily, Advair, metoprolol tartrate 50 mg twice a day, amiodarone 200 daily. REVIEW OF SYSTEMS: RESPIRATORY SYSTEM: She has dyspnea on exertion, history of chronic obstructive lung disease, had been followed by Dr. Crouch [place] base. GI SYSTEM: She denies any prior history of documented GI bleeding, although she has noted dark black stool. SYSTEM: No dysuria or hematuria. NERVOUS SYSTEM: She denies any history of stroke or seizure. PHYSICAL EXAMINATION: She is an 81-year-old female alert, oriented and in no apparent distress. Blood pressure 115/54 with heart rate in the 60s. HEAD: Normocephalic. EYES: Sclerae anicteric. NECK: No bruit noted. LUNGS: Decreased air exchange, but no wheezes or rales. HEART: Regular rate and rhythm. S1, S2. No S3 with a systolic murmur at the base. No diastolic murmur, no rub. ABDOMEN: Soft, nontender. Positive bowel sounds. No organomegaly. EXTREMITIES: Bruising was noted on both extremities with 1+ edema on the left more than on the right. Lab data revealed the hemoglobin of 9.9, today is 10.3. BUN and creatinine of 25 and 1.43. Her troponin less than 0.012. She is heme positive. Her INR on admission is 1.2. IMPRESSION: 1. Symptoms of progressive peripheral edema in a patient with prior history of cardiomyopathy, nonischemic. 2. Gastrointestinal bleeding. Hemoglobin is stable. 3. Paroxysmal atrial fibrillation remains in sinus mechanism. 4. Hyperlipidemia. 5. Prior history of hypertension. RECOMMENDATIONS: From the cardiac standpoint I will repeat her echocardiogram to further evaluate her left ventricular systolic function. I will stop her aspirin since she has nonobstructive coronary artery disease and she is on Coumadin. I will follow her renal function. Depending on her blood pressure and her heart rate further adjustment of her medical regimen will be done. Depending on her progress further recommendations will be made. Thank you for this consult. Will follow with you. EZEKIEL
--- NOTE | 2016-09-25 17:49 | PN ---
Mrs. Cagle is an 81-year-old female who has a history of mild to moderate coronary artery disease, prior history of cardiomyopathy, who presented with symptoms of worsening dyspnea and peripheral edema. She has a history of severe chronic obstructive lung disease. She is feeling better today, ambulating without difficulty, denying any chest pain. She denies any dizziness or palpitations. She had a repeat echocardiogram performed yesterday that revealed improvement in left ventricular systolic function with mild pulmonary hypertension and mild aortic and mitral as well as tricuspid regurgitation. She continues to be at this time on amiodarone 200 mg daily, Lipitor 40 mg daily, furosemide 40 mg daily, isosorbide mononitrate 30 mg daily, metoprolol tartrate 25 mg twice a day. PHYSICAL EXAMINATION: Blood pressure 120/60 with a heart rate 60. LUNGS: Clear. HEART: Regular rate and rhythm. S1, S2. No S3. No rub. ABDOMEN: Soft, non-tender. EXTREMITIES: Trace edema. Lab data revealed BUN and creatinine of 21 and 1.27, which is improved compared with yesterday. Her hemoglobin is 10.4, which has been stable. IMPRESSION: 1. Symptoms of progressive dyspnea, most likely related to her primary lung disease with chronic obstructive lung disease. 2. Prior history of cardiomyopathy that has improved. 3. Paroxysmal atrial fibrillation. Patient not anticoagulated because of recent dark stool. 4. Mild to moderate coronary artery disease. 5. History of chronic kidney disease. RECOMMENDATIONS: From the cardiac standpoint, the patient is stable. She will continue on present therapy. The cardiomyopathy has recovered. If she is cleared from the GI Service, then Eliquis will be reinitiated and she will follow as an outpatient with Dr. Pagan. EZEKIEL
== END 2016-09-24 15:50 | disposition home or self-care (01) | DRG 812 ==
LOC: EC 11:23 → 4MS4W 15:34 → OBSVTOIN 09-23 15:11
PROVIDERS: ADMIT Hospitalist; ATTEND Hospitalist
DX: D62 Acute posthemorrhagic anemia (principal); N17.9 Acute kidney failure, unspecified; J96.11 Chronic respiratory failure with hypoxia; I42.9 Cardiomyopathy, unspecified; I13.0 Hypertensive heart and chronic kidney disease with heart failure and stage 1 through stage 4 chronic kidney disease, or unspecified chronic kidney disease; I50.22 Chronic systolic (congestive) heart failure; K92.2 Gastrointestinal hemorrhage, unspecified; I27.81 Cor pulmonale (chronic); I27.2 Other secondary pulmonary hypertension; J44.9 Chronic obstructive pulmonary disease, unspecified; I07.1 Rheumatic tricuspid insufficiency; I48.0 Paroxysmal atrial fibrillation; D50.0 Iron deficiency anemia secondary to blood loss (chronic); M19.91 Primary osteoarthritis, unspecified site; N18.3 Chronic kidney disease, stage 3 (moderate); I25.10 Atherosclerotic heart disease of native coronary artery without angina pectoris; E78.5 Hyperlipidemia, unspecified; I25.2 Old myocardial infarction; F41.1 Generalized anxiety disorder; L71.9 Rosacea, unspecified; K57.90 Diverticulosis of intestine, part unspecified, without perforation or abscess without bleeding; H91.90 Unspecified hearing loss, unspecified ear; Z99.81 Dependence on supplemental oxygen; Z90.710 Acquired absence of both cervix and uterus; Z87.891 Personal history of nicotine dependence; Z79.01 Long term (current) use of anticoagulants; Z79.82 Long term (current) use of aspirin; Z79.51 Long term (current) use of inhaled steroids; Z79.899 Other long term (current) drug therapy; Z88.1 Allergy status to other antibiotic agents
CPT/HCPCS: 36415; 71020; 80048; 80053; 82272; 82550; 82553; 83735; 83880; 84484; 85025; 85610; 85730; 93005; 93306; 94640; 96374; 99285

== ENCOUNTER 2017-04-26 15:28 | Inpatient (IN) | payer MEDICARE, BC ==
[2017-04-26] MEDS ORDERED: SODIUM CHLORIDE 0.9% 500 ML IV STA (15:52)
--- NOTE | 2017-04-26 15:54 | ED ---
General Adult HPI - General Chief complaint: GI Bleed Stated complaint: Bloody Stool Time Seen by Provider: 04/26/17 15:30 Source: patient, RN notes reviewed Mode of arrival: ambulatory Limitations: no limitations - History of Present Illness Initial comments: This is an 81-year-old female presents emergency Department stating she is on blood thinners for atrial fibrillation. Patient states in the past she has had a GI bleed. Patient states today she started having black stools but no bright red blood. Patient states she's had no other symptoms. Patient states she's had no abdominal cramping no abdominal pain. Patient denies any lightheadedness or dizziness. Patient denies any chest pain palpitations difficulty breathing or shortness of breath. denies any recent history of diarrhea. Patient denies any recent fever or chills. Patient states aside from the dark black stools she is asymptomatic - Related Data Home Medications Medication Instructions Recorded Confirmed Fluticasone/Salmeterol [Advair 1 puff INHALATION RT-BID 03/25/16 04/26/17 250-50 Diskus] Amiodarone [Cordarone] 200 mg PO DAILY 07/03/16 04/26/17 Apixaban [Eliquis] 2.5 mg PO BID 07/03/16 04/26/17 Furosemide [Lasix] 40 mg PO DAILY 08/19/16 04/26/17 Tiotropium 18 Mcg/Puff [Spiriva] 1 cap INHALATION RT-DAILY 08/19/16 04/26/17 Cholecalciferol (Vitamin D3) 4,000 unit PO DAILY 04/26/17 04/26/17 [Vitamin D3] LORazepam [Ativan] 1 mg PO HS 04/26/17 04/26/17 Multivitamins, Thera [Multivitamin 1 tab PO DAILY 04/26/17 04/26/17 (formulary)] Previous Rx's Medication Instructions Recorded Metoprolol Tartrate [Lopressor] 25 mg PO BID #60 tab 09/24/16 Allergies Allergy/AdvReac Type Severity Reaction Status Date / Time amoxicillin [From Augmentin] Allergy Unknown Verified 04/26/17 16:08 cefuroxime axetil Allergy Unknown Verified 04/26/17 16:08 [From Ceftin] clavulanic acid Allergy Unknown Verified 04/26/17 16:08 [From Augmentin] Review of Systems ROS Statement: Those systems with pertinent positive or pertinent negative responses have been documented in the HPI. ROS Other: All systems not noted in ROS Statement are negative. Past Medical History Past Medical History: Atrial Fibrillation, Coronary Artery Disease (CAD), Heart Failure, COPD, Hearing Disorder / Deafness, Hyperlipidemia, Hypertension, Myocardial Infarction (CA), Pneumonia, Renal Disease, Respiratory Disorder Additional Past Medical History / Comment(s): Generalized anxiety disorder, hearing impaired, generalized anxiety disorder, CHF with an ejection fraction of 20-25%, nonocclusive coronary artery disease, diverticulosis, paroxysmal atrial fibrillation, osteoarthritis, BRONCHITIS, HOME 02 2 LITERS N/C AT NIGHT, rosacea, arthritis, nstemi Last Myocardial Infarction Date:: unsure of date History of Any Multi-Drug Resistant Organisms: None Reported Past Surgical History: Adenoidectomy, Appendectomy, Hysterectomy, Orthopedic Surgery, Tonsillectomy Additional Past Surgical History / Comment(s): Right knee arthroscopy for torn meniscus. Colonoscopies x 3 total. Bilateral eyelid surgery. PARTIAL HYSTERECTOMY STILL HAS PART OF LT OVARY Past Anesthesia/Blood Transfusion Reactions: No Reported Reaction Additional Past Anesthesia/Blood Transfusion Reaction / Comment(s): Pt has never recieved blood. Past Psychological History: Anxiety Smoking Status: Former smoker Past Alcohol Use History: None Reported Past Drug Use History: None Reported - Past Family History Father Family Medical History: Cancer Additional Family Medical History / Comment(s): Father at age 77yrs of cancer which pt believes may have started in his throat. Mother Family Medical History: Dementia Additional Family Medical History / Comment(s): Mother at age 95yrs. She was very healthy most of her life- she had dementia at the very end of her life. General Exam - General Exam Comments Initial Comments: GENERAL: Patient is well-developed and well-nourished. Patient is nontoxic and well- hydrated and is in no acute distress. ENT: Neck is soft and supple. No significant lymphadenopathy is noted. Oropharynx is clear. Moist mucous membranes. Neck has full range of motion without eliciting any pain. EYES: The sclera were anicteric and conjunctiva were pink and moist. Extraocular movements were intact and pupils were equal round and reactive to light. Eyelids were unremarkable. PULMONARY: Unlabored respirations. Good breath sounds bilaterally. No audible rales rhonchi or wheezing was noted. CARDIOVASCULAR: There is a regular rate and rhythm without any murmurs gallops or rubs. ABDOMEN: Soft and nontender with normal bowel sounds. No palpable organomegaly was noted. There is no palpable pulsatile mass. RECTAL: On rectal exam there was dark black stool SKIN: Skin is clear with no lesions or rashes and otherwise unremarkable. NEUROLOGIC: Patient is alert and oriented x3. Cranial nerves II through XII are grossly intact. Motor and sensory are also intact. Normal speech, volume and content. Symmetrical smile. MUSCULOSKELETAL: Normal extremities with adequate strength and full range of motion. No lower extremity swelling or edema. No calf tenderness. LYMPHATICS: No significant lymphadenopathy is noted PSYCHIATRIC: Normal psychiatric evaluation. Limitations: no limitations Course Vital Signs 04/26/17 04/26/17 04/26/17 15:31 16:26 16:55 Temperature 98.1 F Pulse Rate 60 55 L 55 L Respiratory 20 18 18 Rate Blood Pressure 141/76 145/65 156/71 O2 Sat by Pulse 99 95 95 Oximetry Medical Decision Making - Medical Decision Making Patient's occult blood was negative. I spoke with Dr. Wills I admitted the patient I consult to assess her. I also held the [place] - Lab Data Result diagrams: 04/26/17 16:15 Lab Results 04/26/17 04/26/17 Range/Units 16:15 16:15 WBC 6.1 (3.8-10.6) k/uL RBC 4.12 (3.80-5.40) m/uL Hgb 12.8 (11.4-16.0) gm/dL Hct 40.4 (34.0-46.0) % MCV 97.9 (80.0-100.0) fL MCH 31.0 (25.0-35.0) pg MCHC 31.6 (31.0-37.0) g/dL RDW 12.8 (11.5-15.5) % Plt Count 230 (150-450) k/uL Neutrophils % 76 % Lymphocytes % 12 % Monocytes % 5 % Eosinophils % 3 % Basophils % 1 % Neutrophils # 4.6 (1.3-7.7) k/uL Lymphocytes # 0.7 L (1.0-4.8) k/uL Monocytes # 0.3 (0-1.0) k/uL Eosinophils # 0.2 (0-0.7) k/uL Basophils # 0.1 (0-0.2) k/uL Stool Occult Blood Positive H (Negative) Disposition Clinical Impression: GI bleed Disposition: ADMITTED IP TO THIS HOSP Referrals: Chaz Kebede MD [Primary Care Provider] - 1-2 days Time of Disposition: 17:00
[2017-04-26 16:45] LABS: Basophils # (A) 0.1 k/uL (0-0.2); Basophils % (A) 1 %; Eosinophils # (A) 0.2 k/uL (0-0.7); Eosinophils % (A) 3 %; HCT 40.4 % (34.0-46.0); HGB 12.8 gm/dL (11.4-16.0); Lymphocytes # (A) 0.7 k/uL (1.0-4.8); Lymphocytes % (A) 12 %; MCHC 31.6 g/dL (31.0-37.0); MCV 97.9 fL (80.0-100.0); Mean Platelet Volume 7.8; Monocytes # (A) 0.3 k/uL (0-1.0); Monocytes % (A) 5 %; Neutrophils # (A) 4.6 k/uL (1.3-7.7); Neutrophils % (A) 76 %; Platelet Count 230 k/uL (150-450); RBC 4.12 m/uL (3.80-5.40); RDW 12.8 % (11.5-15.5); WBC 6.1 k/uL (3.8-10.6)
[2017-04-26 16:55] LABS: Albumin 4.4 g/dL (3.5-5.0); Calcium 9.7 mg/dL (8.4-10.2); Magnesium 2.3 mg/dL (1.6-2.3); Potassium 3.9 mmol/L (3.5-5.1); Total Bilirubin 0.4 mg/dL (0.2-1.3); Total Protein 6.9 g/dL (6.3-8.2)
[2017-04-26 16:58] LABS: INR 1.1 (<1.2); Prothrombin Time 10.7 sec (9.0-12.0)
[2017-04-26] MEDS ORDERED: SODIUM CHLORIDE 0.9% 1,000 ML IV ONE (17:01)
[2017-04-26 17:11] LABS: Creatine Kinase 124 U/L (30-135)
[2017-04-26 17:25] LABS: Troponin I <0.012 ng/mL (0.000-0.034)
[2017-04-26 17:38] LABS: Creatine Kinase MB 2.7 ng/mL (0.0-2.4)
[2017-04-26] MEDS ORDERED: LORazepam 1 MG TAB PO STA (17:45)
[2017-04-26] MEDS: SYMBICORT 80-4.5 MCG INHALER INHALATION SCH (19:16)
[2017-04-26 20:36] VITALS: BMI 23.5
[2017-04-26] MEDS: METOPROLOL TARTRATE 25 MG TAB PO SCH (20:52)
[2017-04-26] MEDS: LORazepam 1 MG TAB PO SCH (20:52)
[2017-04-27] MEDS: IPRATROPIUM 0.5 MG/2.5 ML NEBU INHALATION SCH ×4 (07:04→18:42)
[2017-04-27] MEDS: SYMBICORT 80-4.5 MCG INHALER INHALATION SCH ×2 (07:04→18:42)
[2017-04-27] MEDS: AMIODARONE 200 MG TAB PO SCH (08:04)
[2017-04-27] MEDS: FUROSEMIDE 40 MG TAB PO SCH (08:04)
[2017-04-27] MEDS: METOPROLOL TARTRATE 25 MG TAB PO SCH ×2 (08:04→20:09)
[2017-04-27 09:09] LABS: Basophils # (A) 0.1 k/uL (0-0.2); Basophils % (A) 2 %; Eosinophils # (A) 0.2 k/uL (0-0.7); Eosinophils % (A) 5 %; HCT 39.8 % (34.0-46.0); HGB 12.5 gm/dL (11.4-16.0); Lymphocytes # (A) 0.8 k/uL (1.0-4.8); Lymphocytes % (A) 16 %; MCH 30.7 pg (25.0-35.0); MCHC 31.5 g/dL (31.0-37.0); MCV 97.7 fL (80.0-100.0); Mean Platelet Volume 7.7; Monocytes # (A) 0.3 k/uL (0-1.0); Monocytes % (A) 6 %; Neutrophils # (A) 3.4 k/uL (1.3-7.7); Neutrophils % (A) 70 %; Platelet Count 247 k/uL (150-450); RBC 4.07 m/uL (3.80-5.40); WBC 4.9 k/uL (3.8-10.6)
[2017-04-27] MEDS: SODIUM CHLORIDE 0.9% 1,000 ML IV SCH (11:16)
[2017-04-27] MEDS: PANTOPRAZOLE 40 MG/10 ML VIAL IVP SCH (13:20)
--- NOTE | 2017-04-27 13:25 | CONS ---
CONSULTATION DATE OF SERVICE: 04/26/2017 REASON FOR CONSULTATION: Acute GI bleed. HISTORY OF PRESENT ILLNESS: The patient is an 81-year-old pleasant white female who was admitted to the hospital after having an episode of black tarry stools at home yesterday. She called her PCP and had advised her to go to the emergency room. Since being in the hospital, she did not have any episodes of bleeding. She has a history of chronic A. fib and has been on Eliquis, which she took yesterday morning. She came in to the emergency room and hemoglobin was 12.5 g/dL. She denies any abdominal pain. No nausea, vomiting. She states that she had a similar episode in July of this year and bleeding continued for 2 days and stopped after Eliquis was held for a week. Her last colonoscopy was about 3 or 4 years ago and according to the patient was within normal limits. PAST MEDICAL HISTORY: Significant for A. fib, hypertension, hyperlipidemia. MEDICATIONS: At home Advair, Cordarone, Eliquis, Lasix, Spiriva, vitamin D3, and multivitamin. ALLERGIES: To CEFUROXIME, AMOXICILLIN. SOCIAL HISTORY: No smoking. No alcohol use. PAST SURGICAL HISTORY: Hysterectomy, appendectomy, adenoidectomy, orthopedic surgery, tonsillectomy, bilateral cataract surgery, colonoscopy, the last one 3 years ago. FAMILY HISTORY: Father had throat cancer. Mother had coronary artery disease. REVIEW OF SYSTEMS: CARDIOPULMONARY: No chest pain, shortness of breath. GENITOURINARY: No dysuria, no hematuria. MUSCULOSKELETAL: Unremarkable. SKIN: Unremarkable. ENDOCRINE: Unremarkable. PSYCHIATRIC: Unremarkable. NEUROLOGY: Unremarkable. ENT: Vision unremarkable. CONSTITUTIONAL: No recent weight loss. No fever, chills, night sweats. PHYSICAL EXAMINATION: She appears comfortable. No apparent distress. VITAL SIGNS: Stable. Blood pressure is 132/86, pulse rate 80, temperature 98.2. HEENT EXAMINATION: Unremarkable, conjunctivae are pink, sclerae nonicteric. Oral cavity no lesions. NECK: No JVD or lymph node enlargement. CHEST: Clear to auscultation. HEART: Regular rate and rhythm. ABDOMEN: Soft. Bowel sounds are positive. No organomegaly. EXTREMITIES: No pedal edema. SKIN: No rashes. NEURO: Alert and oriented x3. No focal deficits. LABS: Done at the time of admission to the hospital: WBC is 5.8, hemoglobin 12.4. Repeat hemoglobin this morning is 12.4. IMPRESSION: 1. This is a lady with history of atrial fibrillation, presently on Eliquis, admitted to the hospital with episodes of black tarry stools that happened yesterday. She did not have any more bleeding since being in the hospital and remains hemodynamically stable. Had a similar episode 6 months ago that resolved spontaneously. Most likely dealing with an upper gastrointestinal source of bleeding. 2. History of atrial fibrillation on Eliquis that has been on hold. The last dose was yesterday. RECOMMENDATIONS: 1. Clear liquid diet. 2. Continue with IV Protonix 40 mg daily. 3. Will proceed with an upper endoscopy tomorrow. Discussed with the patient risks, benefits and complications of the procedure and she is agreeable to it. Thank you for this consultation. CE / CRISTA: [id number] /
--- NOTE | 2017-04-27 14:20 | P.HPIM ---
History of Present Illness H&P Date: 04/27/17 Chief Complaint: GI bleed This is an 81-year-old female patient of Dr. Kebede, Dr. Pagan and Dr Crouch with past medical history for paroxysmal atrial fibrillation maintained on eliquis, Lopressor and amiodarone, nonischemic cardiomyopathy, chronic systolic heart failure, COPD with FEV1 of 47%, chronic cor pulmonale secondary to pulmonary hypertension, chronic hypoxic respiratory failure on home O2 her last heart catheterization was with Dr. Pagan in March 2016 that showed mild to moderate obstructive disease in the LAD. EF 20 to 25% in March 2016 and repeat in September 2016 was 55-60%. A shunt was admitted last September for black stools and at that time was seen by Dr. Hogue but because bleeding. There was no endoscopy done. Patient states she had black stools a little amount 2 yesterday. She denies any abdominal pain, nausea, vomiting, diarrhea. She denies any lightheadedness, chest pain or shortness of breath. Patient presented to [facility] emergency center for evaluation. Her vital signs were stable. Occult blood was positive. Hemoglobin 12.8. BUN 28 and creatinine 1.7. Eliquis was held and patient admitted to the [facility] floor and consult requested with Dr. Caty Silverman and patient has been scheduled for EGD tomorrow. Review of Systems All systems: negative Constitutional: Denies anorexia, Denies chills, Denies fatigue, Denies fever, Denies lethargy, Denies poor appetite, Denies weakness Eyes: denies blurred vision, denies pain Ears, nose, mouth and throat: Denies headache, Denies sore throat, Denies vertigo Cardiovascular: Denies chest pain, Denies decreased exercise tolerance, Denies dyspnea on exertion, Denies edema, Denies leg edema, Denies lightheadedness, Denies shortness of breath, Denies syncope Respiratory: Denies cough, Denies cough with sputum, Denies dyspnea, Denies excessive sputum, Denies hemoptysis Gastrointestinal: Reports melena, Denies abdominal pain, Denies diarrhea, Denies nausea, Denies vomiting Genitourinary: Denies dysuria, Denies hematuria Musculoskeletal: Denies myalgias Integumentary: Denies pruritus, Denies rash Neurological: Denies numbness, Denies weakness Psychiatric: Denies anxiety, Denies depression Endocrine: Denies fatigue, Denies weight change Past Medical History Past Medical History: Atrial Fibrillation, Coronary Artery Disease (CAD), Heart Failure, COPD, Hearing Disorder / Deafness, Hyperlipidemia, Hypertension, Myocardial Infarction (SD), Pneumonia, Renal Disease, Respiratory Disorder Additional Past Medical History / Comment(s): Generalized anxiety disorder, hearing impaired, generalized anxiety disorder, CHF with an ejection fraction of 55-60%, nonocclusive coronary artery disease, diverticulosis, paroxysmal atrial fibrillation, osteoarthritis, BRONCHITIS, HOME 02 2 LITERS N/C AT NIGHT, rosacea, arthritis, nstemi Last Myocardial Infarction Date:: unsure of date History of Any Multi-Drug Resistant Organisms: None Reported Past Surgical History: Adenoidectomy, Appendectomy, Hysterectomy, Orthopedic Surgery, Tonsillectomy Additional Past Surgical History / Comment(s): Right knee arthroscopy for torn meniscus. Colonoscopies x 3 total. Bilateral eyelid surgery. PARTIAL HYSTERECTOMY STILL HAS PART OF LT OVARY Past Anesthesia/Blood Transfusion Reactions: No Reported Reaction Additional Past Anesthesia/Blood Transfusion Reaction / Comment(s): Pt has never recieved blood. Past Psychological History: Anxiety Additional Psychological History / Comment(s): Pt is . She lives alone in her single level home in [facility]. She is very independent. She drives a car. She has a niece that lives nearby if she needs someone. Smoking Status: Former smoker Past Alcohol Use History: None Reported Additional Past Alcohol Use History / Comment(s): Patient was a smoker more than one pack per day for 55 years and quit 13 years ago. She states she drinks a couple glasses of wine some days of the week. Past Drug Use History: None Reported - Past Family History Father Family Medical History: Cancer Additional Family Medical History / Comment(s): Father at age 77yrs of cancer which pt believes may have started in his throat. Mother Family Medical History: Dementia Additional Family Medical History / Comment(s): Mother at age 95yrs. She was very healthy most of her life- she had dementia at the very end of her life. Brother(s) Additional Family Medical History / Comment(s): Patient had 3 brothers and one is living and 93 years of age and [place] with history of Alzheimer's dementia, coronary artery disease, CHF, A. fib, COPD. Patient has 2 brothers that have passed one from alcoholism and one from a traumatic head injury from a fall. Sister(s) Additional Family Medical History / Comment(s): Patient has one sister that of ovarian cancer. Patient has one son that from alcoholic complications. Medications and Allergies Home Medications Medication Instructions Recorded Confirmed Type Fluticasone/Salmeterol [Advair 1 puff INHALATION RT-BID 03/25/16 04/26/17 History 250-50 Diskus] Amiodarone [Cordarone] 200 mg PO DAILY 07/03/16 04/26/17 History Apixaban [Eliquis] 2.5 mg PO BID 07/03/16 04/26/17 History Furosemide [Lasix] 40 mg PO DAILY 08/19/16 04/26/17 History Tiotropium 18 Mcg/Puff [Spiriva] 1 cap INHALATION RT-DAILY 08/19/16 04/26/17 History Metoprolol Tartrate [Lopressor] 25 mg PO BID #60 tab 09/24/16 04/26/17 Rx Cholecalciferol (Vitamin D3) 4,000 unit PO DAILY 04/26/17 04/26/17 History [Vitamin D3] LORazepam [Ativan] 1 mg PO HS 04/26/17 04/26/17 History Multivitamins, Thera [Multivitamin 1 tab PO DAILY 04/26/17 04/26/17 History (formulary)] Allergies Allergy/AdvReac Type Severity Reaction Status Date / Time amoxicillin [From Augmentin] Allergy Unknown Verified 04/26/17 16:08 cefuroxime axetil Allergy Unknown Verified 04/26/17 16:08 [From Ceftin] clavulanic acid Allergy Unknown Verified 04/26/17 16:08 [From Augmentin] Physical Exam Vitals: Vital Signs Temp Pulse Pulse Resp BP BP BP 04/27/17 07:14 80 04/27/17 07:04 80 04/27/17 07:00 97.2 F L 48 L 16 128/61 04/26/17 23:00 97.0 F L 54 L 18 111/55 04/26/17 19:40 98.5 F 57 L 20 146/67 04/26/17 18:16 57 L 16 04/26/17 18:08 96.8 F L 57 L 16 175/75 04/26/17 17:41 61 18 188/75 04/26/17 16:55 55 L 18 156/71 04/26/17 16:26 55 L 18 145/65 04/26/17 15:31 98.1 F 60 20 141/76 Pulse Ox 04/27/17 07:14 04/27/17 07:04 04/27/17 07:00 98 04/26/17 23:00 98 04/26/17 19:40 97 04/26/17 18:16 04/26/17 18:08 99 04/26/17 17:41 95 04/26/17 16:55 95 04/26/17 16:26 95 04/26/17 15:31 99 Intake and Output 04/26/17 04/27/17 04/27/17 22:59 06:59 14:59 Other: Voiding Method Toilet # Voids 2 1 Weight 68.039 kg Gen: This is an 81-year-old female. She is sitting up in bed and appears to be comfortable and in no acute distress. HEENT: Head is atraumatic, normocephalic. Pupils equal, round. Sclerae is anicteric. NECK: Supple. No JVD. No lymphadenopathy. No thyromegaly. LUNGS: Clear to auscultation. No wheezes or rhonchi. No intercostal retractions. HEART: Irregular rate and rhythm. Systolic murmur. ABDOMEN: Soft. Bowel sounds are present. No masses. No tenderness. EXTREMITIES: No pedal edema. No calf tenderness. Dorsalis pedis palpable bilaterally. NEUROLOGICAL: Patient is awake, alert and oriented x3. Cranial nerves 2 through 12 are grossly intact. Results CBC & Chem 7: 04/27/17 07:37 04/26/17 16:15 Labs: Abnormal Lab Results - Last 24 Hours (Table) 04/26/17 04/26/17 04/26/17 Range/Units 16:15 16:15 16:15 Lymphocytes # 0.7 L (1.0-4.8) k/uL BUN 28 H (7-17) mg/dL Creatinine 1.70 H (0.52-1.04) mg/dL CK-MB (CK-2) 2.7 H* (0.0-2.4) ng/mL Stool Occult Blood (Negative) 04/26/17 04/27/17 Range/Units 16:15 07:37 Lymphocytes # 0.8 L (1.0-4.8) k/uL BUN (7-17) mg/dL Creatinine (0.52-1.04) mg/dL CK-MB (CK-2) (0.0-2.4) ng/mL Stool Occult Blood Positive H (Negative) Thrombosis Risk Factor Assmnt - DVT/VTE Prophylaxis DVT/VTE Prophylaxis: Mechanical Prophylaxis ordered - Choose All That Apply Each Factor Represents 1 point: Abnormal pulmonary function (COPD), Acute SD Other Risk Factors: No Other congenital or acquired thrombophilia - If yes, enter type in comment: No Thrombosis Risk Factor Assessment Total Risk Factor Score: 2 Thrombosis Risk Factor Assessment Level: Low Risk Assessment and Plan Plan: 1. Acute GI bleed. Consult with Dr Caty negron. Patient is scheduled for EGD tomorrow. Eliquis is on hold. 2. Acute kidney injury. IV fluid 0.9 normal saline at 50 mL per hour. Avoid nephrotoxic agents. Repeat labs. 3. Paroxysmal atrial fibrillation. Continue Lopressor 25 mg twice daily, amiodarone 200 mg daily. Eliquis on hold. 4. History of nonischemic cardiomyopathy with chronic diastolic heart failure, stable without exacerbation. Continue Lasix 40 mg daily and Lopressor. 5. COPD without exacerbation. Continue Atrovent and Symbicort. 6. Chronic hypoxic respiratory failure on home O2. Continue oxygen prn. 7. History of coronary artery disease and follows with Dr. Pagan. 8. GI prophylaxis. Protonix. 9. DVT prophylaxis. DANYA lin and SCDs. 10. [ ]. Patient will be admitted to the hospital for a minimum of 2 night stay. Discharge plan: Discharge home Impression and plan of care have been directed as dictated by the signing physician. Margaret Pulliam nurse practitioner acting as scribe for signing physician.
[2017-04-27] MEDS: LORazepam 1 MG TAB PO SCH (20:08)
[2017-04-27] MEDS ORDERED: ACETAMINOPHEN TAB 325 MG TAB PO PRN (20:48)
[2017-04-28] MEDS: SODIUM CHLORIDE 0.9% 1,000 ML IV SCH (06:13)
[2017-04-28] MEDS: SYMBICORT 80-4.5 MCG INHALER INHALATION SCH ×2 (07:17→19:00)
[2017-04-28] MEDS: IPRATROPIUM 0.5 MG/2.5 ML NEBU INHALATION SCH ×4 (07:17→19:00)
[2017-04-28] MEDS ORDERED: IV FLUID CONTINUATION 1,000 ML IV ONE (07:52)
[2017-04-28] MEDS ORDERED: PROPOFOL 10 MG/ML 20 ML VIAL IV ONE (07:52)
[2017-04-28] MEDS ORDERED: LIDOCAINE 1% INJ 10MG/ML (20 ML MDV) ONE (07:52)
--- NOTE | 2017-04-28 08:11 | P.PCN ---
Date of Procedure: 04/28/17 Procedure(s) Performed: BRIEF HISTORY: Patient is a 81-year-old, pleasant, white female, scheduled for an upper endoscopy as a part of evaluation of black stools for the last 2 days' duration. She has history of A. fib and has been on Eliquis procedure has been on hold for the last 2 days. Her hemoglobin is stable at 12 g/dL.. PROCEDURE PERFORMED: Esophagogastroduodenoscopy with biopsy PREOPERATIVE DIAGNOSIS: Melena of 2 days' duration. IV sedation per anesthesia. PROCEDURE: After informed consent was obtained, the patient was brought into the endoscopy unit. IV sedation was administered by Anesthesia under continuous monitoring. Initially the Olympus GIF-140 video endoscope was inserted into the mouth. Esophagus intubated without any difficulty. It was gradually advanced into the stomach and duodenum and carefully examined. The bulb and the second part of the duodenum appeared normal. The scope at this time was withdrawn to the stomach, adequately insufflated with air, and upon careful examination, mucosa of the antrum, had scattered erosions and biopsies were done from this area. The body, cardia and the fundus appeared normal. The scope was then withdrawn into the esophagus. The GE junction was located at 39 cm from the incisors. The esophagus appeared normal. There were no erosions or ulcerations seen and the patient tolerated the procedure well. IMPRESSION: 1. Antral erosive gastritis. 2. No evidence of esophagitis or peptic ulcer disease. 3. No evidence of active upper GI bleed. RECOMMENDATIONS: The findings of this examination were discussed with the patient. Her diet will be advanced as tolerated. She will continue on Protonix 40 mg daily. Anticoagulation can be resumed today.
[2017-04-28 08:13] LABS: HCT 38.5 % (34.0-46.0); MCH 30.6 pg (25.0-35.0); MCHC 31.1 g/dL (31.0-37.0); MCV 98.5 fL (80.0-100.0); Mean Platelet Volume 7.6; Platelet Count 232 k/uL (150-450); RDW 12.8 % (11.5-15.5); WBC 5.8 k/uL (3.8-10.6)
[2017-04-28 08:18] LABS: Calcium 9.4 mg/dL (8.4-10.2)
[2017-04-28 08:23] LABS: Potassium 4.4 mmol/L (3.5-5.1)
[2017-04-28] MEDS: FUROSEMIDE 40 MG TAB PO SCH (08:23)
[2017-04-28] MEDS: AMIODARONE 200 MG TAB PO SCH (08:23)
[2017-04-28] MEDS: PANTOPRAZOLE 40 MG/10 ML VIAL IVP SCH (08:23)
[2017-04-28] MEDS: METOPROLOL TARTRATE 25 MG TAB PO SCH ×3 (08:23→21:24)
[2017-04-28] MEDS: MULTIVITAMINS, THERA 1 EACH TAB PO SCH (11:15)
[2017-04-28] MEDS: CHOLECALCIFEROL 1,000 UNIT TAB PO SCH (11:15)
--- NOTE | 2017-04-28 15:31 | P.PN ---
Subjective Progress Note Date: 04/28/17 This is an 81-year-old female patient of Dr. Kebede, Dr. Pagan and Dr Crouch with past medical history for paroxysmal atrial fibrillation maintained on eliquis, Lopressor and amiodarone, nonischemic cardiomyopathy, chronic systolic heart failure, COPD with FEV1 of 47%, chronic cor pulmonale secondary to pulmonary hypertension, chronic hypoxic respiratory failure on home O2 her last heart catheterization was with Dr. Pagan in March 2016 that showed mild to moderate obstructive disease in the LAD. EF 20 to 25% in March 2016 and repeat in September 2016 was 55-60%. A shunt was admitted last September for black stools and at that time was seen by Dr. Hogue but because bleeding. There was no endoscopy done. Patient states she had black stools a little amount 2 yesterday. She denies any abdominal pain, nausea, vomiting, diarrhea. She denies any lightheadedness, chest pain or shortness of breath. Patient presented to [facility] emergency center for evaluation. Her vital signs were stable. Occult blood was positive. Hemoglobin 12.8. BUN 28 and creatinine 1.7. Eliquis was held and patient admitted to the [facility] floor and consult requested with Dr. Caty Silverman and patient has EGD today that showed gastritis and we will start her on protonix 40 mg orally daily and will resume her Eliquis and will keep her tonight as to recheck her cbc in AM if stable will discharge home. Objective - Vital Signs Vital signs: Vital Signs Temp 97.2 F L 04/28/17 07:32 Pulse 58 L 04/28/17 07:32 Resp 18 04/28/17 07:32 BP 132/64 04/28/17 07:32 Pulse Ox 94 L 04/28/17 07:32 Intake & Output 04/27/17 04/28/17 04/28/17 18:59 06:59 18:59 Intake Total 2234 Balance 2234 Weight 68.039 kg 74.5 kg Intake: Oral 2234 Other: # Voids 1 2 - Constitutional General appearance: Present: no acute distress - EENT Eyes: Present: anicteric sclerae, EOMI, PERRLA, dentition normal, normal appearance. Absent: ptosis, scleral icterus ENT: Present: hearing grossly normal, NA/AT, normal oropharynx. Absent: thrush Ears: bilateral: normal - Neck Neck: Present: normal ROM. Absent: lymphadenopathy, rigidity, stridor, thyromegaly Carotids: bilateral: upstroke normal Thyroid: bilateral: normal size - Respiratory Respiratory: bilateral: diminished, negative: dullness, rales, rhonchi, wheezing , prolonged expiration, prolonged inspiration - Cardiovascular Rhythm: regular Heart sounds: normal: S1, S2 Abnormal Heart Sounds: Present: systolic murmur. Absent: S3 Gallop, S4 Gallop - Gastrointestinal General gastrointestinal: Present: normal bowel sounds, soft. Absent: splenomegaly, tenderness, umbilical hernia, ventral hernia - Integumentary Integumentary: Present: normal, normal turgor - Neurologic Neurologic: Present: CNII-XII intact - Musculoskeletal Musculoskeletal: Present: gait normal, strength equal bilaterally - Psychiatric Psychiatric: Present: A&O x's 3, appropriate affect, intact judgment & insight - Labs CBC & Chem 7: 04/28/17 07:28 04/28/17 07:28 Labs: Abnormal Lab Results - Last 24 Hours (Table) 04/27/17 Range/Units 07:37 Lymphocytes # 0.8 L (1.0-4.8) k/uL Assessment and Plan Plan: Assessment and Plan Plan: 1. Acute GI bleed post EGD that showed mild gastritis. we will continue with Protonix 40 mg po daily and we will resume Eliquis. 2. Acute kidney injury. IV fluid 0.9 normal saline at 50 mL per hour. Avoid nephrotoxic agents. Repeat labs. 3. Paroxysmal atrial fibrillation. Continue Lopressor 25 mg twice daily, amiodarone 200 mg daily. resume Eliquis. 4. History of nonischemic cardiomyopathy with chronic diastolic heart failure, stable without exacerbation. Continue Lasix 40 mg daily and Lopressor. 5. COPD without exacerbation. Continue Atrovent and Symbicort. 6. Chronic hypoxic respiratory failure on home O2. Continue oxygen prn. 7. History of coronary artery disease and follows with Dr. Pagan. 8. GI prophylaxis. Protonix. 9. DVT prophylaxis. DANYA lin and SCDs. 10. Home in AM.
[2017-04-28] MEDS: APIXABAN 2.5 MG TABLET PO SCH (21:24)
[2017-04-28] MEDS: LORazepam 1 MG TAB PO SCH (21:24)
[2017-04-28 23:03] VITALS: RESP 16
[2017-04-29] MEDS: SODIUM CHLORIDE 0.9% 1,000 ML IV SCH (05:57)
[2017-04-29] MEDS: IPRATROPIUM 0.5 MG/2.5 ML NEBU INHALATION SCH ×2 (07:05→10:56)
[2017-04-29] MEDS: SYMBICORT 80-4.5 MCG INHALER INHALATION SCH (07:05)
[2017-04-29 07:28] VITALS: BP 137/63; TEMP 96.8
[2017-04-29] MEDS: PANTOPRAZOLE 40 MG/10 ML VIAL IVP SCH (08:16)
[2017-04-29] MEDS: CHOLECALCIFEROL 1,000 UNIT TAB PO SCH (08:17)
[2017-04-29] MEDS: FUROSEMIDE 40 MG TAB PO SCH (08:17)
[2017-04-29] MEDS: APIXABAN 2.5 MG TABLET PO SCH (08:17)
[2017-04-29] MEDS: AMIODARONE 200 MG TAB PO SCH (08:17)
[2017-04-29] MEDS: METOPROLOL TARTRATE 25 MG TAB PO SCH (08:17)
[2017-04-29] MEDS: MULTIVITAMINS, THERA 1 EACH TAB PO SCH (08:17)
[2017-04-29 09:20] LABS: Basophils % (A) 1 %; Eosinophils # (A) 0.2 k/uL (0-0.7); Eosinophils % (A) 3 %; HCT 38.5 % (34.0-46.0); HGB 11.9 gm/dL (11.4-16.0); Hypochromasia Moderate; Lymphocytes # (A) 0.6 k/uL (1.0-4.8); Lymphocytes % (A) 9 %; MCH 31.1 pg (25.0-35.0); MCHC 30.8 g/dL (31.0-37.0); MCV 101.2 fL (80.0-100.0); Mean Platelet Volume 7.8; Monocytes # (A) 0.3 k/uL (0-1.0); Monocytes % (A) 5 %; Neutrophils # (A) 5.4 k/uL (1.3-7.7); Neutrophils % (A) 81 %; Platelet Count 218 k/uL (150-450); RBC 3.81 m/uL (3.80-5.40); RDW 12.7 % (11.5-15.5); WBC 6.7 k/uL (3.8-10.6)
[2017-04-29 09:40] LABS: Albumin 4.1 g/dL (3.5-5.0); Calcium 9.9 mg/dL (8.4-10.2); Potassium 4.4 mmol/L (3.5-5.1); Total Bilirubin 0.4 mg/dL (0.2-1.3); Total Protein 6.6 g/dL (6.3-8.2)
--- NOTE | 2017-04-29 09:51 | PN ---
PROGRESS NOTE DATE OF SERVICE: 04/29/17. REQUESTING PHYSICIAN: Dr. Wills. The patient is an 81 -year-old pleasant white female admitted to hospital with black tarry stools of 2 days duration. She underwent an upper endoscopy yesterday that showed mild antral erosive gastritis. The patient is doing well. Eliquis on hold. No further bleeding. Hemodynamically stable. PHYSICAL EXAMINATION: Appears comfortable, no apparent distress. VITAL SIGNS: Stable. Blood pressure is 137/63, pulse rate 54. Temperature 96.8. HEENT examination unremarkable. Conjunctivae pink. Sclerae anicteric. Oral cavity no lesions. Neck no jugular venous distention or lymph node enlargement. Chest was clear to auscultation. HEART: Regular rate and rhythm. ABDOMEN: Soft. Bowel sounds are positive. No organomegaly extremities no pedal edema. Skin no rashes. NEUROLOGIC: Alert and oriented x3. No focal deficits. LAB: Hemoglobin 12 today, WBC 5.8, platelets normal. IMPRESSION: 1. Acute upper gastrointestinal bleed, status post upper endoscopy yesterday that showed erosive gastritis. No active bleeding. Eliquis is on hold. 2. Chronic atrial fibrillation. RECOMMENDATIONS: 1. Continue Protonix 40 mg daily. 2. Resume anticoagulation. 3. Regular diet. 4. She can be discharged home today. Thank you for this consultation. MMODL / IJN: [id number] /
[2017-04-29 10:59] VITALS: PULSE 55
--- NOTE | 2017-04-29 12:12 | P.DS ---
Providers Date of admission: 04/26/17 17:01 Attending physician: Otto Wills Consults: 04/26/17 17:01 Consult Physician Urgent Consulting Provider: Dionte Hogue Consult Reason/Comments: GI bleed Do you want consulting provider notified?: Yes Primary care physician: Chaz Kebede [facility] Course: This is an 81-year-old female patient of Dr. Kebede, Dr. Pagan and Dr Crouch with past medical history for paroxysmal atrial fibrillation maintained on eliquis, Lopressor and amiodarone, nonischemic cardiomyopathy, chronic systolic heart failure, COPD with FEV1 of 47%, chronic cor pulmonale secondary to pulmonary hypertension, chronic hypoxic respiratory failure on home O2 her last heart catheterization was with Dr. Pagan in March 2016 that showed mild to moderate obstructive disease in the LAD. EF 20 to 25% in March 2016 and repeat in September 2016 was 55-60%. A shunt was admitted last September for black stools and at that time was seen by Dr. Hogue but because bleeding. There was no endoscopy done. Patient states she had black stools a little amount 2 yesterday. She denies any abdominal pain, nausea, vomiting, diarrhea. She denies any lightheadedness, chest pain or shortness of breath. Patient presented to [facility] emergency center for evaluation. Her vital signs were stable. Occult blood was positive. Hemoglobin 12.8. BUN 28 and creatinine 1.7. Eliquis was held and [facility] and consult requested with Dr. Caty Silverman and patient has EGD today that showed gastritis and we will start her on protonix 40 mg orally daily and will resume her Eliquis and will keep her tonight as to recheck her cbc in AM if stable will discharge home. 04/29: HGB is stable and the patient will be discharged home and follow up with as outpatient in one week. Discharge diagnoses: 1. Acute GI bleed post EGD that showed mild gastritis. 2. Acute kidney injury. 3. Paroxysmal atrial fibrillation. 4. History of nonischemic cardiomyopathy with chronic diastolic heart failure. 5. COPD without exacerbation. 6. Chronic hypoxic respiratory failure on home O2. 7. History of coronary artery disease Patient Condition at Discharge: Good Plan - Discharge Summary Discharge Rx Participant: No New Discharge Prescriptions: Continue Fluticasone/Salmeterol [Advair 250-50 Diskus] 1 puff INHALATION RT-BID Apixaban [Eliquis] 2.5 mg PO BID Amiodarone [Cordarone] 200 mg PO DAILY Furosemide [Lasix] 40 mg PO DAILY Tiotropium 18 Mcg/Puff [Spiriva] 1 cap INHALATION RT-DAILY Metoprolol Tartrate [Lopressor] 25 mg PO BID #60 tab Multivitamins, Thera [Multivitamin (formulary)] 1 tab PO DAILY Cholecalciferol (Vitamin D3) [Vitamin D3] 4,000 unit PO DAILY LORazepam [Ativan] 1 mg PO HS Discharge Medication List Fluticasone/Salmeterol [Advair 250-50 Diskus] 1 puff INHALATION RT-BID 03/25/16 [History] Amiodarone [Cordarone] 200 mg PO DAILY 07/03/16 [History] Apixaban [Eliquis] 2.5 mg PO BID 07/03/16 [History] Furosemide [Lasix] 40 mg PO DAILY 08/19/16 [History] Tiotropium 18 Mcg/Puff [Spiriva] 1 cap INHALATION RT-DAILY 08/19/16 [History] Metoprolol Tartrate [Lopressor] 25 mg PO BID #60 tab 09/24/16 [Rx] Cholecalciferol (Vitamin D3) [Vitamin D3] 4,000 unit PO DAILY 04/26/17 [History] LORazepam [Ativan] 1 mg PO HS 04/26/17 [History] Multivitamins, Thera [Multivitamin (formulary)] 1 tab PO DAILY 04/26/17 [History ] Follow up Appointment(s)/Referral(s): Chaz Kebede MD [Primary Care Provider] - 1-2 days Patient Instructions/Handouts: Gastrointestinal Bleeding (DC) Discharge Disposition: HOME SELF-CARE
--- NOTE | 2017-05-03 13:22 | CDI ---
Last Revision, February 2017 Documentation Clarification Form Date: 05/03/2017 1:02:00 PM From: Karin Dailey-Locomotive Driver Phone: If you have questions, contact Nahed Messer, [employer] at [phone]. Admit Date: 04/26/2017 Patient Name: Martha Cagle Visit Number: [id number] Discharge Date: 04/29/17 ATTENTION: The Clinical Documentation Specialists (CDI) and [facility] Coding Staff appreciate your assistance in clarifying documentation. Please respond to the clarification below the line at the bottom and electronically sign. The CDI & [facility] Coding staff will review the response and follow-up if needed. Please note: Queries are made part of the Legal Health Record. If you have any questions, please contact the author of this message via ITS. Dr. Bibiana Silverman, Pt is admitted with GI bleed with melena. EGD performed with findings of Antral erosive gastritis Consult: Most likely dealing with an upper gastrointestinal source of bleeding. Acute upper gastrointestinal bleed, status post upper endoscopy that showed erosive gastritis. No active bleeding. In your professional opinion, can you please clarify the underlying cause of GI bleed, if known? Antral erosive gastritis with bleed Antral erosive gastritis without bleed Other, please specify Unable to determine MTDD
== END 2017-04-29 12:21 | disposition home or self-care (01) | DRG 378 ==
LOC: EC 15:28 → 4MS4W 17:01
PROVIDERS: ADMIT Internal Medicine Geriatric Medicine; ATTEND Internal Medicine Geriatric Medicine
PROC: 0DB68ZX Excision of Stomach, Via Natural or Artificial Opening Endoscopic, Diagnostic (ICD-10-PCS; principal; 2017-04-28 08:00)
DX: K29.01 Acute gastritis with bleeding (principal); N17.9 Acute kidney failure, unspecified; J96.11 Chronic respiratory failure with hypoxia; I27.29 Other secondary pulmonary hypertension; I42.9 Cardiomyopathy, unspecified; I50.32 Chronic diastolic (congestive) heart failure; K92.1 Melena; I11.0 Hypertensive heart disease with heart failure; I48.0 Paroxysmal atrial fibrillation; H91.90 Unspecified hearing loss, unspecified ear; E78.5 Hyperlipidemia, unspecified; F41.1 Generalized anxiety disorder; I48.2 Chronic atrial fibrillation; I25.10 Atherosclerotic heart disease of native coronary artery without angina pectoris; J44.9 Chronic obstructive pulmonary disease, unspecified; M19.90 Unspecified osteoarthritis, unspecified site; Z99.81 Dependence on supplemental oxygen; Z88.1 Allergy status to other antibiotic agents; Z88.8 Allergy status to other drugs, medicaments and biological substances; Z79.899 Other long term (current) drug therapy; Z79.01 Long term (current) use of anticoagulants; Z80.41 Family history of malignant neoplasm of ovary; Z82.5 Family history of asthma and other chronic lower respiratory diseases; Z82.0 Family history of epilepsy and other diseases of the nervous system; Z80.8 Family history of malignant neoplasm of other organs or systems; Z82.49 Family history of ischemic heart disease and other diseases of the circulatory system; Z87.891 Personal history of nicotine dependence; Z81.1 Family history of alcohol abuse and dependence; Z90.89 Acquired absence of other organs; Z90.49 Acquired absence of other specified parts of digestive tract; Z90.710 Acquired absence of both cervix and uterus; Z87.01 Personal history of pneumonia (recurrent); I25.2 Old myocardial infarction
CPT/HCPCS: 36415; 43239; 80048; 80053; 82272; 82550; 82553; 83735; 84484; 85025; 85027; 85610; 85730; 86850; 86900; 86901; 88305; 88342; 94640; 94760; 99285

== ENCOUNTER 2017-07-31 08:10 | Day surgery (SDC) | payer MEDICARE, BC ==
[2017-07-27 11:14] VITALS: BMI 23.2
[~2017-07-31 08:10] MED LIST: LACTATED RINGERS 1,000 ML IV SCH; LIDOCAINE 1% 20 ML VIAL (10MG/ML) FOR IV START INTRADERMA PRN
[2017-07-31 09:22] VITALS: RESP 16; TEMP 98.2
[2017-07-31] MEDS ORDERED: PROPOFOL 10 MG/ML 20 ML VIAL IV ONE (10:01)
[2017-07-31] MEDS ORDERED: LIDOCAINE 1% INJ 10MG/ML (20 ML MDV) ONE (10:01)
--- NOTE | 2017-07-31 10:38 | P.PCN ---
Date of Procedure: 07/31/17 Procedure(s) Performed: Procedure: Colonoscopy and biopsy. Preoperative diagnosis: Change in bowel habits. Postoperative diagnosis: 1. Sigmoid diverticulosis with no evidence of acute diverticulitis or strictures. 2. Exam of the colon and terminal ileum is, otherwise, within normal limits. 3. Biopsies obtained from the terminal ileum and right colon. Preparation: HalfLytely prep. Sedation: Was provided by anesthesia. Brief clinical history: The patient is an 82-year-old female with history of C. difficile colitis, was recently evaluated because of change in bowel habits with episodes of diarrhea. Her last colonoscopy was in 2012. This evaluation is to assess for inflammatory, infectious conditions or neoplasia. Procedure: With the patient on her left lateral decubitus position and after informed consent and adequate sedation, the perianal area was inspected and it did not show any fissures or fistulas. There were no masses felt on digital rectal examination. The Olympus CFQ 160L video colonoscope was then inserted in the rectum in the usual fashion and advanced to the cecum. I intubated the ileocecal valve and examined the terminal ileum. There were several diverticular orifices seen scattered in the sigmoid but I saw no evidence of acute diverticulitis or strictures. The mucosa of the colon and terminal ileum appeared healthy with no edema, erythema, friability, ulceration, exudation or spontaneous bleeding. No polyps or tumors were seen or any other pathology. I obtained biopsies from the terminal ileum and right colon then I retroflexed the endoscope in the rectum before the endoscope was withdrawn. The patient tolerated the procedure well. Plan: The patient was reassured. Discussed dietary measures and symptomatic treatment. We will await pathology results and make further plans based on her course and biopsy results. She will follow-up with you as planned and I will keep you updated on her progress.
[2017-07-31 10:56] VITALS: BP 137/67; PULSE 52
== END 2017-07-31 11:14 | disposition home or self-care (01) ==
LOC: ORWHC2ENDO 08:10
DX: K57.30 Diverticulosis of large intestine without perforation or abscess without bleeding (principal); K52.832 Lymphocytic colitis; Z86.19 Personal history of other infectious and parasitic diseases; I25.10 Atherosclerotic heart disease of native coronary artery without angina pectoris; I11.0 Hypertensive heart disease with heart failure; I50.9 Heart failure, unspecified; E78.5 Hyperlipidemia, unspecified; I48.91 Unspecified atrial fibrillation; Z79.01 Long term (current) use of anticoagulants; J44.9 Chronic obstructive pulmonary disease, unspecified; M19.90 Unspecified osteoarthritis, unspecified site; N19 Unspecified kidney failure; Z79.51 Long term (current) use of inhaled steroids; Z79.899 Other long term (current) drug therapy; Z88.1 Allergy status to other antibiotic agents; Z88.0 Allergy status to penicillin
CPT/HCPCS: 88305; 45380; J2001; J2704

== ENCOUNTER 2019-09-15 10:27 | Emergency (ER) | payer MEDICARE, BC ==
[2019-09-15 10:41] VITALS: BP 138/74; PULSE 85; RESP 18; TEMP 98.7
--- NOTE | 2019-09-15 11:07 | ED ---
General Adult HPI - General Chief complaint: Arrhythmia/Palpitations Stated complaint: hypertension Time Seen by Provider: 09/15/19 10:44 Source: patient Mode of arrival: wheelchair Limitations: no limitations - History of Present Illness Initial comments: Dictation was produced using [employer] dictation software. please excuse any grammatical, word or spelling errors. This patient was cared for during a federal and state declared state of emergency secondary to Covid 19 Chief Complaint: 84-year-old female past medical history of anxiety, A. fib heart failure presents with elevated blood pressure and heart rate at home History of Present Illness: This 84-year-old female she presents today because she checked her blood pressure and her heart rate at home. To be elevated. This was read after patient took her daily medications. Patient has a history of atrial fibrillation. She is on an anticoagulation medication. Patient was immediately worried about the number that was measured on her automatic blood pressure cuff. She states that the systolic measured be 180. She is here today because she doesn't need to have a stroke. Patient states that she checked her blood pressure today routinely. She was not having any symptoms. She currently denies any symptoms at this time. She currently takes apixiban. The ROS documented in this emergency department record has been reviewed and confirmed by me. Those systems with pertinent positive or negative responses have been documented in the HPI. All other systems are other negative and/or noncontributory. PHYSICAL EXAM: General Impression: Alert and oriented x3, not in acute distress HEENT: Normocephalic atraumatic, extra-ocular movements intact, pupils equal and reactive to light bilaterally, mucous membranes moist. Cardiovascular: Heart regular rate and rhythm Chest: Able to complete full sentences, no retractions, no tachypnea Abdomen: abdomen soft, non-tender, non-distended, no organomegaly Musculoskeletal: Pulses present and equal in all extremities, no peripheral edema Motor: no focal deficits noted Neurological: CN II-XII grossly intact, no focal motor or sensory deficits noted Skin: Intact with no visualized rashes Psych: Normal affect and mood ED course: 84-year-old female presents with elevated blood pressure and heart rate at home vital signs upon arrival are within acceptable limits. Her heart rates control 85, blood pressures 138/74. Patient does not have any strokelike symptoms. She does not have any medical complaints. EKG is benign. Patient does not have any neuro symptoms. Physical exam is completely benign. Reassurance provided. Patient told to return to the emergency department or seek immediate medical attention if she develops a symmetrical numbness and weakness, aphasia or dysarthria. Patient will be discharged per she is advised follow-up with her primary care physician. EKG interpretation: Ventricular rate 94, A. fib, QRS 104, QTC 450. No MD prolongation, no QTC prolongation, no ST or T-wave changes noted. Overall, this EKG is unremarkable - Related Data Home Medications Medication Instructions Recorded Confirmed Fluticasone/Salmeterol [Advair 1 puff INHALATION RT-BID 03/25/16 07/31/17 250-50 Diskus] Amiodarone [Cordarone] 200 mg PO DAILY 07/03/16 07/31/17 Apixaban [Eliquis] 2.5 mg PO BID 07/03/16 07/31/17 Furosemide [Lasix] 40 mg PO BID 08/19/16 07/31/17 Tiotropium 18 Mcg/Puff [Spiriva] 1 cap INHALATION RT-DAILY 08/19/16 07/31/17 Cholecalciferol (Vitamin D3) 4,000 unit PO DAILY 04/26/17 07/31/17 [Vitamin D3] LORazepam [Ativan] 1 mg PO HS 04/26/17 07/31/17 Multivitamins, Thera [Multivitamin 1 tab PO DAILY 04/26/17 07/31/17 (formulary)] Acetaminophen [Tylenol Extra 500 mg PO DAILY PRN 07/27/17 07/31/17 Strength] Ferrous Sulfate [Feosol] 325 mg PO DAILY 07/27/17 07/31/17 Previous Rx's Medication Instructions Recorded Metoprolol Tartrate [Lopressor] 25 mg PO BID #60 tab 09/24/16 Allergies Allergy/AdvReac Type Severity Reaction Status Date / Time amoxicillin [From Augmentin] Allergy Unknown Verified 09/15/19 10:41 cefuroxime axetil Allergy Unknown Verified 09/15/19 10:41 [From Ceftin] clavulanic acid Allergy Unknown Verified 09/15/19 10:41 [From Augmentin] Review of Systems ROS Statement: Those systems with pertinent positive or pertinent negative responses have been documented in the HPI. ROS Other: All systems not noted in ROS Statement are negative. Past Medical History Past Medical History: Atrial Fibrillation, Coronary Artery Disease (CAD), Heart Failure, COPD, GERD/Reflux, GI Bleed, Hearing Disorder / Deafness, Hyperlipidemia, Hypertension, Myocardial Infarction (CA), Osteoarthritis (OA), Pneumonia, Renal Disease, Respiratory Disorder Additional Past Medical History / Comment(s): HEARING AIDS., CHF , HX OF C-DIFF ("A FEW YRS AGO")., DIVERTICULOSIS, BRONCHITIS, 02 @ 2 LITERS N/C AT NIGHT, ROSACEA., STATES DIARRHEA FOR 7 WEEKS-STOOLS DARK., STATES CHECKING FOR C-DIFF. Last Myocardial Infarction Date:: unsure of date History of Any Multi-Drug Resistant Organisms: None Reported Past Surgical History: Adenoidectomy, Appendectomy, Heart Catheterization, Hysterectomy, Orthopedic Surgery, Tonsillectomy Additional Past Surgical History / Comment(s): Right knee arthroscopy for torn meniscus. Colonoscopies , Bilateral eyelid surgery. PARTIAL HYSTERECTOMY STILL HAS PART OF LT OVARY, EGD. Past Anesthesia/Blood Transfusion Reactions: No Reported Reaction Additional Past Anesthesia/Blood Transfusion Reaction / Comment(s): . Past Psychological History: Anxiety Smoking Status: Former smoker Past Alcohol Use History: Daily Past Drug Use History: None Reported - Past Family History Brother(s) Additional Family Medical History / Comment(s): Patient had 3 brothers and one is living and 93 years of age and [place] with history of Alzheimer's dementia, coronary artery disease, CHF, A. fib, COPD. Patient has 2 brothers that have passed one from alcoholism and one from a traumatic head injury from a fall. Sister(s) Additional Family Medical History / Comment(s): Patient has one sister that of ovarian cancer. Patient has one son that from alcoholic complications. Father Family Medical History: Cancer Additional Family Medical History / Comment(s): Father at age 77yrs of cancer which pt believes may have started in his throat. Mother Family Medical History: Dementia Additional Family Medical History / Comment(s): Mother at age 95yrs. She was very healthy most of her life- she had dementia at the very end of her life. General Exam Limitations: no limitations Course Vital Signs 09/15/19 10:36 Temperature 98.7 F Pulse Rate 85 Respiratory 18 Rate Blood Pressure 138/74 O2 Sat by Pulse 97 Oximetry Disposition Clinical Impression: Dysrhythmia, Hypertension Disposition: HOME SELF-CARE Condition: Good Instructions (If sedation given, give patient instructions): Heart Palpitations (ED) Is patient prescribed a controlled substance at d/c from ED?: No Referrals: Otto Wills MD [Primary Care Provider] - 1-2 days Time of Disposition: 11:07
== END 2019-09-15 11:12 | disposition home or self-care (01) ==
LOC: EC 10:27
DX: I49.9 Cardiac arrhythmia, unspecified (principal); I11.9 Hypertensive heart disease without heart failure; I48.91 Unspecified atrial fibrillation; F41.9 Anxiety disorder, unspecified; I25.10 Atherosclerotic heart disease of native coronary artery without angina pectoris; J44.9 Chronic obstructive pulmonary disease, unspecified; I50.9 Heart failure, unspecified; E78.5 Hyperlipidemia, unspecified; I25.2 Old myocardial infarction; M19.90 Unspecified osteoarthritis, unspecified site; Z79.01 Long term (current) use of anticoagulants; Z79.51 Long term (current) use of inhaled steroids; Z79.899 Other long term (current) drug therapy; Z88.0 Allergy status to penicillin; Z88.1 Allergy status to other antibiotic agents; Z87.891 Personal history of nicotine dependence; Z95.5 Presence of coronary angioplasty implant and graft
CPT/HCPCS: 93005; 99284

== ENCOUNTER 2020-03-04 11:18 | Emergency (ER) | payer MEDICARE, BC ==
[2020-03-04] MEDS ORDERED: MORPHINE SULFATE 4 MG/ML SYRINGE IM STA (12:02)
--- NOTE | 2020-03-04 12:37 | ED ---
Extremity Problem HPI - General Chief complaint: Extremity Problem,Nontraumatic Stated complaint: R hip & leg pain Time Seen by Provider: 03/04/20 11:40 Source: patient, RN notes reviewed Mode of arrival: wheelchair Limitations: no limitations - History of Present Illness Initial comments: This a 84 -year-old female presents emergency Department chief complaint of right hip, leg pain. Patient states started a few days ago. Patient was seen by PCP on Sunday states that she did not mention the symptoms. She felt better yesterday but woke up with worsening pain today. This pain areas down her leg. She has no discoloration currently other than her normal bruising which she states is from blood thinners. Patient states that she has increased pain with movement and walking. Patient denies any trauma. Patient denies any bowel, bladder incontinence or retention. Denies any saddle anesthesias or lower shunted paresthesias. Patient states that she is still able to ambulate states it is painful. She does not use any walking devices. - Related Data Home Medications Medication Instructions Recorded Confirmed Fluticasone/Salmeterol [Advair 1 puff INHALATION RT-BID 03/25/16 07/31/17 250-50 Diskus] Amiodarone [Cordarone] 200 mg PO DAILY 07/03/16 07/31/17 Apixaban [Eliquis] 2.5 mg PO BID 07/03/16 07/31/17 Furosemide [Lasix] 40 mg PO BID 08/19/16 07/31/17 Tiotropium 18 Mcg/Puff [Spiriva] 1 cap INHALATION RT-DAILY 08/19/16 07/31/17 Cholecalciferol (Vitamin D3) 4,000 unit PO DAILY 04/26/17 07/31/17 [Vitamin D3] LORazepam [Ativan] 1 mg PO HS 04/26/17 07/31/17 Multivitamins, Thera [Multivitamin 1 tab PO DAILY 04/26/17 07/31/17 (formulary)] Acetaminophen [Tylenol Extra 500 mg PO DAILY PRN 07/27/17 07/31/17 Strength] Ferrous Sulfate [Feosol] 325 mg PO DAILY 07/27/17 07/31/17 Previous Rx's Medication Instructions Recorded Metoprolol Tartrate [Lopressor] 25 mg PO BID #60 tab 09/24/16 predniSONE 50 mg PO DAILY #4 tab 03/04/20 Allergies Allergy/AdvReac Type Severity Reaction Status Date / Time amoxicillin [From Augmentin] Allergy Unknown Verified 03/04/20 11:31 cefuroxime axetil Allergy Unknown Verified 03/04/20 11:31 [From Ceftin] clavulanic acid Allergy Unknown Verified 03/04/20 11:31 [From Augmentin] Review of Systems ROS Statement: Those systems with pertinent positive or pertinent negative responses have been documented in the HPI. ROS Other: All systems not noted in ROS Statement are negative. Past Medical History Past Medical History: Atrial Fibrillation, Coronary Artery Disease (CAD), Heart Failure, COPD, GERD/Reflux, GI Bleed, Hearing Disorder / Deafness, Hyperlipidemia, Hypertension, Myocardial Infarction ([place]), Osteoarthritis (OA), Pneumonia, Renal Disease, Respiratory Disorder Additional Past Medical History / Comment(s): HEARING AIDS., CHF , HX OF C-DIFF ("A FEW YRS AGO")., DIVERTICULOSIS, BRONCHITIS, 02 @ 2 LITERS N/C AT NIGHT, ROSACEA., STATES DIARRHEA FOR 7 WEEKS-STOOLS DARK., STATES CHECKING FOR C-DIFF. Last Myocardial Infarction Date:: unsure of date History of Any Multi-Drug Resistant Organisms: None Reported Past Surgical History: Adenoidectomy, Appendectomy, Heart Catheterization, Hysterectomy, Orthopedic Surgery, Tonsillectomy Additional Past Surgical History / Comment(s): Right knee arthroscopy for torn meniscus. Colonoscopies , Bilateral eyelid surgery. PARTIAL HYSTERECTOMY STILL HAS PART OF LT OVARY, EGD. Past Anesthesia/Blood Transfusion Reactions: No Reported Reaction Additional Past Anesthesia/Blood Transfusion Reaction / Comment(s): . Past Psychological History: Anxiety Smoking Status: Former smoker Past Alcohol Use History: Daily Past Drug Use History: None Reported - Past Family History Brother(s) Additional Family Medical History / Comment(s): Patient had 3 brothers and one is living and 93 years of age and [place] with history of Alzheimer's dementia, coronary artery disease, CHF, A. fib, COPD. Patient has 2 brothers that have passed one from alcoholism and one from a traumatic head injury from a fall. Sister(s) Additional Family Medical History / Comment(s): Patient has one sister that of ovarian cancer. Patient has one son that from alcoholic complications. Father Family Medical History: Cancer Additional Family Medical History / Comment(s): Father at age 77yrs of cancer which pt believes may have started in his throat. Mother Family Medical History: Dementia Additional Family Medical History / Comment(s): Mother at age 95yrs. She was very healthy most of her life- she had dementia at the very end of her life. General Exam Limitations: no limitations General appearance: alert, in no apparent distress Head exam: Present: atraumatic, normocephalic, normal inspection Eye exam: Present: normal appearance, PERRL, EOMI. Absent: scleral icterus, conjunctival injection, periorbital swelling Respiratory exam: Present: normal lung sounds bilaterally. Absent: respiratory distress, wheezes, rales, rhonchi, stridor Cardiovascular Exam: Present: regular rate, normal rhythm, normal heart sounds. Absent: systolic murmur, diastolic murmur, rubs, gallop, clicks GI/Abdominal exam: Present: soft, normal bowel sounds. Absent: distended, tenderness, guarding, rebound, rigid Extremities exam: Present: other (Lower extremity strength equal bilaterally, mild pain with right straight leg raise there is equal color and warmth there is noted ecchymosis of the lower extremity posterior. Pedal pulses equal bilaterally) Back exam: Present: full ROM. Absent: tenderness, CVA tenderness (R), CVA tenderness (L), paraspinal tenderness, vertebral tenderness Neurological exam: Present: alert, oriented X3, CN II-XII intact, reflexes normal. Absent: motor sensory deficit Skin exam: Present: warm, dry, intact, normal color. Absent: rash Course Vital Signs 03/04/20 11:31 Temperature 98.8 F Pulse Rate 76 Respiratory 16 Rate Blood Pressure 121/73 O2 Sat by Pulse 95 Oximetry Medical Decision Making - Medical Decision Making 84 year old female presented for right leg pain. She has right sided sciatica. Patient is neurologically intact she has no red flag symptoms. She was able to ambulate in the room with no difficulty. Patient does feel comfortable with discharge home. Return parameters were discussed. Disposition Clinical Impression: Acute right lumbar radiculopathy Disposition: HOME SELF-CARE Condition: Stable Instructions (If sedation given, give patient instructions): Sciatica (ED) Additional Instructions: Please return to the Emergency Department if symptoms worsen or any other concerns. Prescriptions: predniSONE 50 mg PO DAILY #4 tab Is patient prescribed a controlled substance at d/c from ED?: No Referrals: Otto Wills MD [Primary Care Provider] - 1-2 days Mark Moyer DO [Doctor of Osteopathic Medicine] - 1-2 days Time of Disposition: 13:26
--- NOTE | 2020-03-04 13:04 | XR ---
EXAMINATION TYPE: XR Hip Complete RT DATE OF EXAM: 03/04/2020 CLINICAL HISTORY: Right hip pain. TECHNIQUE: AP and frogleg views of the right hip are obtained. COMPARISON: None. FINDINGS: There is no acute fracture/dislocation evident in the right hip. Moderate axial joint spac e loss with mild to moderate acetabular spurring. A few scattered right-sided pelvic phleboliths. IMPRESSION: As above .
--- NOTE | 2020-03-04 13:05 | XR ---
EXAMINATION TYPE: XR lumbosacral spine min 4V DATE OF EXAM: 03/04/2020 COMPARISON: None HISTORY: Pain TECHNIQUE: Five-view lumbar spine FINDINGS: There 5 lumbar-type vertebral bodies. Pedicles are intact. Facet degenerative changes are p resent. Hypertrophy is noted L4-5 and L5-S1. No spondylolytic defects are evident mild diffuse disc s pace narrowing is present, greatest at L4-5. Vertebral body heights are preserved. IMPRESSION: 1. Degenerative facet changes and some disc space narrowing discussed above.
[2020-03-04] MEDS ORDERED: ACET/COD 300 MG/30 MG STARTER PACK 6 TAB BTL PO STA (13:24)
[2020-03-04] MEDS ORDERED: HYDROcodone/APAP 5-325MG 1 EACH TAB PO STA (13:24)
[2020-03-04] MEDS ORDERED: predniSONE 50 MG TAB PO STA (13:24)
[2020-03-04 13:44] VITALS: BP 133/72; PULSE 78; RESP 18; TEMP 97.9
== END 2020-03-04 13:44 | disposition home or self-care (01) ==
LOC: EC 11:18
DX: M54.16 Radiculopathy, lumbar region (principal); F41.9 Anxiety disorder, unspecified; I48.91 Unspecified atrial fibrillation; J44.9 Chronic obstructive pulmonary disease, unspecified; I25.2 Old myocardial infarction; I10 Essential (primary) hypertension; E78.5 Hyperlipidemia, unspecified; Z79.51 Long term (current) use of inhaled steroids; Z79.899 Other long term (current) drug therapy; Z88.0 Allergy status to penicillin; Z88.1 Allergy status to other antibiotic agents; Z87.891 Personal history of nicotine dependence; Z95.5 Presence of coronary angioplasty implant and graft; Z90.49 Acquired absence of other specified parts of digestive tract; Z90.710 Acquired absence of both cervix and uterus
CPT/HCPCS: 99283 ×2; 96372 ×2; 72110; 73502; J2270; J7512

== ENCOUNTER 2020-03-21 12:55 | Emergency (ER) | payer MEDICARE, BC ==
[2020-03-21 13:02] VITALS: RESP 18
[2020-03-21] MEDS ORDERED: SODIUM CHLORIDE 0.9% 500 ML 500 ML IV STA (13:18)
[2020-03-21] MEDS ORDERED: MORPHINE SULFATE 4 MG/ML SYRINGE IV STA (13:18)
--- NOTE | 2020-03-21 13:28 | ED ---
General Adult HPI - General Chief complaint: Back Pain/Injury Stated complaint: revisit - rt foot numbness Time Seen by Provider: 03/21/20 13:03 Source: patient Mode of arrival: ambulatory Limitations: no limitations - History of Present Illness Initial comments: Dictation was produced using [employer] dictation software. please excuse any grammatical, word or spelling errors. This patient was cared for during a federal and state declared state of emergency secondary to Covid 19 Chief Complaint: 84-year-old female presents with neck pain. History of Present Illness: 84-year-old female she is fairly high functioning. Patient was seen in emergency department to half weeks ago where she was evaluated for acute onset back pain. She had x-rays performed and given referral to spine DrJohanna Moyer. Patient states that Dr. Moyer did not do much for her to give her steroids. Patient states that her symptoms are so severe especially worse with movement. She states that her symptoms radiate down to her right lower extremity. States that she does have some numbness over the dorsum of her foot. She has not had an MRI. Denies any fever. No history of trauma. The ROS documented in this emergency department record has been reviewed and confirmed by me. Those systems with pertinent positive or negative responses have been documented in the HPI. All other systems are other negative and/or noncontributory. PHYSICAL EXAM: General Impression: Alert and oriented x3, not in acute distress HEENT: Normocephalic atraumatic, extra-ocular movements intact, pupils equal and reactive to light bilaterally, mucous membranes moist. Cardiovascular: Heart regular rate and rhythm Chest: Able to complete full sentences, no retractions, no tachypnea Abdomen: abdomen soft, non-tender, non-distended, no organomegaly Musculoskeletal: Pulses present and equal in all extremities, no peripheral edema, mild tenderness to palpation over the right paraspinal lumbar area, and, DP pulses intact and equal bilaterally, negative straight leg test Motor: no focal deficits noted Neurological: CN II-XII grossly intact, no focal motor or sensory deficits noted Skin: Intact with no visualized rashes Psych: Normal affect and mood ED course: 84-year-old female presents with her second visit for back pain. All signs upon arrival are within acceptable limits. Laboratory evaluation obtained. CBC, metabolic panel is within acceptable limits. Urinalysis is negative. Computed tomography scan of the lumbar spine shows L5-S1 disc herniation impinging on the neural foramen probably clinically significant. Patient is notified of results. Patient is agreeable for discharge. Given prescription for by mouth analgesics. She is told to follow- up with Dr. Moyer for outpatient management of her back symptoms. - Related Data Home Medications Medication Instructions Recorded Confirmed Fluticasone/Salmeterol [Advair 1 puff INHALATION RT-BID 03/25/16 07/31/17 250-50 Diskus] Amiodarone [Cordarone] 200 mg PO DAILY 07/03/16 07/31/17 Apixaban [Eliquis] 2.5 mg PO BID 07/03/16 07/31/17 Furosemide [Lasix] 40 mg PO BID 08/19/16 07/31/17 Tiotropium 18 Mcg/Puff [Spiriva] 1 cap INHALATION RT-DAILY 08/19/16 07/31/17 Cholecalciferol (Vitamin D3) 4,000 unit PO DAILY 04/26/17 07/31/17 [Vitamin D3] LORazepam [Ativan] 1 mg PO HS 04/26/17 07/31/17 Multivitamins, Thera [Multivitamin 1 tab PO DAILY 04/26/17 07/31/17 (formulary)] Acetaminophen [Tylenol Extra 500 mg PO DAILY PRN 07/27/17 07/31/17 Strength] Ferrous Sulfate [Feosol] 325 mg PO DAILY 07/27/17 07/31/17 Previous Rx's Medication Instructions Recorded Metoprolol Tartrate [Lopressor] 25 mg PO BID #60 tab 09/24/16 predniSONE 50 mg PO DAILY #4 tab 03/04/20 HYDROcodone/APAP 5-325MG [[place] 1 tab PO Q6HR PRN 3 Days #12 tab 03/21/20 5-325] Allergies Allergy/AdvReac Type Severity Reaction Status Date / Time amoxicillin [From Augmentin] Allergy Unknown Verified 03/21/20 12:59 cefuroxime axetil Allergy Unknown Verified 03/21/20 12:59 [From Ceftin] clavulanic acid Allergy Unknown Verified 03/21/20 12:59 [From Augmentin] Review of Systems ROS Statement: Those systems with pertinent positive or pertinent negative responses have been documented in the HPI. ROS Other: All systems not noted in ROS Statement are negative. Past Medical History Past Medical History: Atrial Fibrillation, Coronary Artery Disease (CAD), Heart Failure, COPD, GERD/Reflux, GI Bleed, Hearing Disorder / Deafness, Hyperlipidemia, Hypertension, Myocardial Infarction ([place]), Osteoarthritis (OA), Pneumonia, Renal Disease, Respiratory Disorder Additional Past Medical History / Comment(s): HEARING AIDS., CHF , HX OF C-DIFF ("A FEW YRS AGO")., DIVERTICULOSIS, BRONCHITIS, 02 @ 2 LITERS N/C AT NIGHT, ROSACEA., STATES DIARRHEA FOR 7 WEEKS-STOOLS DARK., STATES CHECKING FOR C-DIFF. Last Myocardial Infarction Date:: unsure of date History of Any Multi-Drug Resistant Organisms: None Reported Past Surgical History: Adenoidectomy, Appendectomy, Heart Catheterization, Hysterectomy, Orthopedic Surgery, Tonsillectomy Additional Past Surgical History / Comment(s): Right knee arthroscopy for torn meniscus. Colonoscopies , Bilateral eyelid surgery. PARTIAL HYSTERECTOMY STILL HAS PART OF LT OVARY, EGD. Past Anesthesia/Blood Transfusion Reactions: No Reported Reaction Additional Past Anesthesia/Blood Transfusion Reaction / Comment(s): . Past Psychological History: Anxiety Smoking Status: Former smoker Past Alcohol Use History: Daily Past Drug Use History: None Reported - Past Family History Brother(s) Additional Family Medical History / Comment(s): Patient had 3 brothers and one is living and 93 years of age and [place] with history of Alzheimer's dementia, coronary artery disease, CHF, A. fib, COPD. Patient has 2 brothers that have passed one from alcoholism and one from a traumatic head injury from a fall. Sister(s) Additional Family Medical History / Comment(s): Patient has one sister that of ovarian cancer. Patient has one son that from alcoholic complications. Father Family Medical History: Cancer Additional Family Medical History / Comment(s): Father at age 77yrs of cancer which pt believes may have started in his throat. Mother Family Medical History: Dementia Additional Family Medical History / Comment(s): Mother at age 95yrs. She was very healthy most of her life- she had dementia at the very end of her life. General Exam Limitations: no limitations Course Vital Signs 03/21/20 13:00 Temperature 98 F Pulse Rate 103 H Respiratory 18 Rate Blood Pressure 123/77 O2 Sat by Pulse 96 Oximetry Medical Decision Making - Lab Data Result diagrams: 03/21/20 13:27 03/21/20 13:27 Lab Results 03/21/20 03/21/20 03/21/20 Range/Units 13:27 13:27 13:43 WBC 11.1 H (3.8-10.6) k/uL RBC 5.27 (3.80-5.40) m/uL Hgb 16.8 H (11.4-16.0) gm/dL Hct 50.6 H (34.0-46.0) % MCV 96.0 (80.0-100.0) fL MCH 31.8 (25.0-35.0) pg MCHC 33.2 (31.0-37.0) g/dL RDW 12.6 (11.5-15.5) % Plt Count 191 (150-450) k/uL MPV 7.5 Neutrophils % 85 % Lymphocytes % 7 % Monocytes % 4 % Eosinophils % 3 % Basophils % 1 % Neutrophils # 9.5 H (1.3-7.7) k/uL Lymphocytes # 0.7 L (1.0-4.8) k/uL Monocytes # 0.4 (0-1.0) k/uL Eosinophils # 0.3 (0-0.7) k/uL Basophils # 0.1 (0-0.2) k/uL Sodium 134 L (137-145) mmol/L Potassium 3.6 (3.5-5.1) mmol/L Chloride 94 L (98-107) mmol/L Carbon Dioxide 35 H (22-30) mmol/L Anion Gap 5 mmol/L BUN 29 H (7-17) mg/dL Creatinine 1.33 H (0.52-1.04) mg/dL Est GFR (CKD-EPI)AfAm 42 (>60 ml/min/1.73 sqM) Est GFR (CKD-EPI)NonAf 36 (>60 ml/min/1.73 sqM) Glucose 119 H (74-99) mg/dL Calcium 9.5 (8.4-10.2) mg/dL Urine Color Colorless Urine Appearance Clear (Clear) Urine pH 7.0 (5.0-8.0) Ur Specific [place] 1.003 (1.001-1.035) Urine Protein Negative (Negative) Urine Glucose (UA) Negative (Negative) Urine Ketones Negative (Negative) Urine Blood Negative (Negative) Urine Nitrite Negative (Negative) Urine Bilirubin Negative (Negative) Urine Urobilinogen <2.0 (<2.0) mg/dL Ur Leukocyte Esterase Negative (Negative) Disposition Clinical Impression: Sciatica Disposition: HOME SELF-CARE Condition: Fair Instructions (If sedation given, give patient instructions): Acute Low Back Pain (ED) Prescriptions: HYDROcodone/APAP 5-325MG [[place] 5-325] 1 tab PO Q6HR PRN 3 Days #12 tab PRN Reason: Severe Pain Is patient prescribed a controlled substance at d/c from ED?: Yes If prescribed controlled substance>3 days was MAPS reviewed?: Prescribed <3 Days Referrals: Mark Moyer DO [Doctor of Osteopathic Medicine] - 1-2 days Time of Disposition: 14:32
[2020-03-21 13:34] LABS: Basophils # (A) 0.1 k/uL (0-0.2); Basophils % (A) 1 %; Eosinophils # (A) 0.3 k/uL (0-0.7); Eosinophils % (A) 3 %; HCT 50.6 % (34.0-46.0); HGB 16.8 gm/dL (11.4-16.0); Lymphocytes # (A) 0.7 k/uL (1.0-4.8); Lymphocytes % (A) 7 %; MCH 31.8 pg (25.0-35.0); MCHC 33.2 g/dL (31.0-37.0); Mean Platelet Volume 7.5; Monocytes # (A) 0.4 k/uL (0-1.0); Monocytes % (A) 4 %; Neutrophils # (A) 9.5 k/uL (1.3-7.7); Neutrophils % (A) 85 %; Platelet Count 191 k/uL (150-450); RBC 5.27 m/uL (3.80-5.40); RDW 12.6 % (11.5-15.5); WBC 11.1 k/uL (3.8-10.6)
[2020-03-21 13:45] LABS: Calcium 9.5 mg/dL (8.4-10.2); Potassium 3.6 mmol/L (3.5-5.1)
[2020-03-21 13:58] LABS: Appearance,Urine Clear (Clear); Bilirubin,Urine Negative (Negative); Blood,Urine Negative (Negative); Color,Urine Colorless; Glucose,Urine (UA) Negative (Negative); Ketones,Urine Negative (Negative); Leukocyte Esterase,Urine Negative (Negative); Nitrite,Urine Negative (Negative); Protein,Urine Negative (Negative); Specific Gravity,Urine 1.003 (1.001-1.035); Urobilinogen,Urine <2.0 mg/dL (<2.0)
--- NOTE | 2020-03-21 14:23 | CT ---
EXAMINATION TYPE: CT lumbar spine wo con DATE OF EXAM: 03/21/2020 COMPARISON: None HISTORY: Right sided back and leg pain with foot numbness. CT DLP: 718.2 mGycm Automated exposure control for dose reduction was used. Images were obtained from the level of T12-S3 vertebra without contrast. Lumbar vertebra have normal alignment. Disc spaces are fairly normal for age. There is mild narrowing at L4-5 disc. The posterior elements are intact. There is no compression fracture. There is no lumba r paraspinal mass. There is hypertrophic facet arthropathy and ligamentum flavum thickening with spin al stenosis at L4-5. There is a posterior lateral disc herniation at L5-S1 on the right side. This is impinging on the neural foramen. Sacroiliac joints are intact. I see no focal bone destruction. There is posterior concentric disc bul ging at L4-5 and L3-4 and L2-3. IMPRESSION: Spondylotic changes. There is posterior lateral right side L5-S1 disc herniation impinging on the neural foramen and proba ubaldo clinically significant in this patient with right side pain. No fracture. Moderately severe spinal stenosis at L4-5.
[2020-03-21] MEDS ORDERED: ACET/COD 300 MG/30 MG STARTER PACK 6 TAB BTL PO STA (14:33)
[2020-03-21 15:00] VITALS: BP 131/71; PULSE 102; TEMP 97.4
== END 2020-03-21 15:04 | disposition home or self-care (01) ==
LOC: EC 12:55
DX: M51.17 Intervertebral disc disorders with radiculopathy, lumbosacral region (principal); I11.0 Hypertensive heart disease with heart failure; J44.9 Chronic obstructive pulmonary disease, unspecified; I50.9 Heart failure, unspecified; H91.90 Unspecified hearing loss, unspecified ear; F41.9 Anxiety disorder, unspecified; I25.2 Old myocardial infarction; Z79.899 Other long term (current) drug therapy; Z79.51 Long term (current) use of inhaled steroids; Z79.01 Long term (current) use of anticoagulants; Z88.0 Allergy status to penicillin; Z88.1 Allergy status to other antibiotic agents; Z87.891 Personal history of nicotine dependence
CPT/HCPCS: 36415; 80048; 85025; 81003; 72131; 99284; 96374; 96361; J2270

== ENCOUNTER 2020-03-28 13:01 | Emergency (ER) | payer MEDICARE, BC ==
[2020-03-28 13:18] VITALS: TEMP 98.5
--- NOTE | 2020-03-28 13:47 | ED ---
Extremity Problem HPI - General Chief complaint: Extremity Problem,Nontraumatic Stated complaint: Bilateral Feet Swelling,CHF Time Seen by Provider: 03/28/20 13:19 Source: patient, RN notes reviewed Mode of arrival: ambulatory Limitations: no limitations - History of Present Illness Initial comments: 84-year-old female bent emergency Department chief complaint of leg swelling, 5 pound weight gain. Patient does have history of CHF she took her Lasix this morning she states that she has not missed any doses no dietary changes. She states that she feels bloated also. Patient states she initially called her orthopedic surgeon secondary to leave and she had ALLERGIC reaction to her [place]. She's been taking [place] for a long period time patient states that she's had some swelling to her nose and thought it was related to her medications no chest pain no significant increasing shortness of breath. She states she's always short of breath related to her COPD. - Related Data Home Medications Medication Instructions Recorded Confirmed Fluticasone/Salmeterol [Advair 1 puff INHALATION RT-BID 03/25/16 07/31/17 250-50 Diskus] Amiodarone [Cordarone] 200 mg PO DAILY 07/03/16 07/31/17 Apixaban [Eliquis] 2.5 mg PO BID 07/03/16 07/31/17 Furosemide [Lasix] 40 mg PO BID 08/19/16 07/31/17 Tiotropium 18 Mcg/Puff [Spiriva] 1 cap INHALATION RT-DAILY 08/19/16 07/31/17 Cholecalciferol (Vitamin D3) 4,000 unit PO DAILY 04/26/17 07/31/17 [Vitamin D3] LORazepam [Ativan] 1 mg PO HS 04/26/17 07/31/17 Multivitamins, Thera [Multivitamin 1 tab PO DAILY 04/26/17 07/31/17 (formulary)] Acetaminophen [Tylenol Extra 500 mg PO DAILY PRN 07/27/17 07/31/17 Strength] Ferrous Sulfate [Feosol] 325 mg PO DAILY 07/27/17 07/31/17 Previous Rx's Medication Instructions Recorded Metoprolol Tartrate [Lopressor] 25 mg PO BID #60 tab 09/24/16 predniSONE 50 mg PO DAILY #4 tab 03/04/20 HYDROcodone/APAP 5-325MG [[place] 1 tab PO Q6HR PRN 3 Days #12 tab 03/21/20 5-325] Sulfamethox-Tmp 800-160Mg [Bactrim 1 each PO Q12HR #14 tab 03/28/20 Ds] Allergies Allergy/AdvReac Type Severity Reaction Status Date / Time amoxicillin [From Augmentin] Allergy Unknown Verified 03/28/20 13:18 cefuroxime axetil Allergy Unknown Verified 03/28/20 13:18 [From Ceftin] clavulanic acid Allergy Unknown Verified 03/28/20 13:18 [From Augmentin] Review of Systems ROS Statement: Those systems with pertinent positive or pertinent negative responses have been documented in the HPI. ROS Other: All systems not noted in ROS Statement are negative. Past Medical History Past Medical History: Atrial Fibrillation, Coronary Artery Disease (CAD), Heart Failure, COPD, GERD/Reflux, GI Bleed, Hearing Disorder / Deafness, Hyperli pidemia, Hypertension, Myocardial Infarction ([place]), Osteoarthritis (OA), Pneumonia, Renal Disease, Respiratory Disorder Additional Past Medical History / Comment(s): HEARING AIDS., CHF , HX OF C-DIFF ("A FEW YRS AGO")., DIVERTICULOSIS, BRONCHITIS, 02 @ 2 LITERS N/C AT NIGHT, ROSACEA., STATES DIARRHEA FOR 7 WEEKS-STOOLS DARK., STATES CHECKING FOR C-DIFF. Last Myocardial Infarction Date:: unsure of date History of Any Multi-Drug Resistant Organisms: None Reported Past Surgical History: Adenoidectomy, Appendectomy, Heart Catheterization, Hysterectomy, Orthopedic Surgery, Tonsillectomy Additional Past Surgical History / Comment(s): Right knee arthroscopy for torn meniscus. Colonoscopies , Bilateral eyelid surgery. PARTIAL HYSTERECTOMY STILL HAS PART OF LT OVARY, EGD. Past Anesthesia/Blood Transfusion Reactions: No Reported Reaction Additional Past Anesthesia/Blood Transfusion Reaction / Comment(s): . Past Psychological History: Anxiety Smoking Status: Former smoker Past Alcohol Use History: Daily Past Drug Use History: None Reported - Past Family History Brother(s) Additional Family Medical History / Comment(s): Patient had 3 brothers and one is living and 93 years of age and [place] with history of Alzheimer's dementia, coronary artery disease, CHF, A. fib, COPD. Patient has 2 brothers that have passed one from alcoholism and one from a traumatic head injury from a fall. Sister(s) Additional Family Medical History / Comment(s): Patient has one sister that of ovarian cancer. Patient has one son that from alcoholic complications. Father Family Medical History: Cancer Additional Family Medical History / Comment(s): Father at age 77yrs of [facility] which pt believes may have started in his throat. Mother Family Medical History: Dementia Additional Family Medical History / Comment(s): Mother at age 95yrs. She was very healthy most of her life- she had dementia at the very end of her life. General Exam Limitations: no limitations General appearance: alert, in no apparent distress Head exam: Present: atraumatic, normocephalic, normal inspection Eye exam: Present: normal appearance, PERRL, EOMI. Absent: scleral icterus, conjunctival injection, periorbital swelling ENT exam: Present: normal exam, normal oropharynx, mucous membranes moist Neck exam: Present: normal inspection, full ROM. Absent: tenderness, men ingismus, lymphadenopathy Respiratory exam: Present: normal lung sounds bilaterally. Absent: respiratory distress, wheezes, rales, rhonchi, stridor Cardiovascular Exam: Present: normal rhythm, tachycardia, normal heart sounds. Absent: systolic murmur, diastolic murmur, rubs, gallop, clicks Extremities exam: Present: pedal edema. Absent: calf tenderness Neurological exam: Present: alert, oriented X3, CN II-XII intact Skin exam: Present: warm, dry, intact, normal color. Absent: rash Course Vital Signs 03/28/20 03/28/20 13:16 14:15 Temperature 98.5 F Pulse Rate 110 H 96 Respiratory 20 16 Rate Blood Pressure 129/81 127/79 O2 Sat by Pulse 99 97 Oximetry Medical Decision Making - Medical Decision Making X-ray is unremarkable there is no signs of CHF exacerbation patient had 5 pound weight gain with minimal leg swelling. Patient advised take an extra dose of 20 mg Lasix today. Patient used to be on twice a day Lasix. Patient does have some erythema and what appears acting related to her nose we discussed possibility from wearing mass. Patient we discharged with medications return parameters were discussed. - Lab Data Result diagrams: 03/28/20 13:41 03/28/20 13:41 Lab Results 01/10/21 01/10/21 01/10/21 Range/Units 13:41 13:41 13:41 WBC 4.8 (3.8-10.6) k/uL RBC 4.48 (3.80-5.40) m/uL Hgb 14.7 (11.4-16.0) gm/dL Hct 42.7 (34.0-46.0) % MCV 95.3 (80.0-100.0) fL MCH 32.8 (25.0-35.0) pg MCHC 34.4 (31.0-37.0) g/dL RDW 13.1 (11.5-15.5) % Plt Count 151 (150-450) k/uL MPV 7.7 Neutrophils % 77 % Lymphocytes % 11 % Monocytes % 6 % Eosinophils % 4 % Basophils % 1 % Neutrophils # 3.7 (1.3-7.7) k/uL Lymphocytes # 0.5 L (1.0-4.8) k/uL Monocytes # 0.3 (0-1.0) k/uL Eosinophils # 0.2 (0-0.7) k/uL Basophils # 0.0 (0-0.2) k/uL Sodium 139 (137-145) mmol/L Potassium 3.8 (3.5-5.1) mmol/L Chloride 99 (98-107) mmol/L Carbon Dioxide 30 (22-30) mmol/L Anion Gap 10 mmol/L BUN 17 (7-17) mg/dL Creatinine 1.14 H (0.52-1.04) mg/dL Est GFR (CKD-EPI)AfAm 51 (>60 ml/min/1.73 sqM) Est GFR (CKD-EPI)NonAf 44 (>60 ml/min/1.73 sqM) Glucose 107 H (74-99) mg/dL Calcium 9.4 (8.4-10.2) mg/dL Total Bilirubin 1.0 (0.2-1.3) mg/dL AST 42 H (14-36) U/L ALT 35 H (4-34) U/L Alkaline Phosphatase 65 (38-126) U/L Troponin I (0.000-0.034) ng/mL NT-Pro-B Natriuret Pep 1370 pg/mL Total Protein 7.4 (6.3-8.2) g/dL Albumin 4.7 (3.5-5.0) g/dL 03/28/20 Range/Units 13:41 WBC (3.8-10.6) k/uL RBC (3.80-5.40) m/uL Hgb (11.4-16.0) gm/dL Hct (34.0-46.0) % MCV (80.0-100.0) fL MCH (25.0-35.0) pg MCHC (31.0-37.0) g/dL RDW (11.5-15.5) % Plt Count (150-450) k/uL MPV Neutrophils % % Lymphocytes % % Monocytes % % Eosinophils % % Basophils % % Neutrophils # (1.3-7.7) k/uL Lymphocytes # (1.0-4.8) k/uL Monocytes # (0-1.0) k/uL Eosinophils # (0-0.7) k/uL Basophils # (0-0.2) k/uL Sodium (137-145) mmol/L Potassium (3.5-5.1) mmol/L Chloride (98-107) mmol/L Carbon Dioxide (22-30) mmol/L Anion Gap mmol/L BUN (7-17) mg/dL Creatinine (0.52-1.04) mg/dL Est GFR (CKD-EPI)AfAm (>60 ml/min/1.73 sqM) Est GFR (CKD-EPI)NonAf (>60 ml/min/1.73 sqM) Glucose (74-99) mg/dL Calcium (8.4-10.2) mg/dL Total Bilirubin (0.2-1.3) mg/dL AST (14-36) U/L ALT (4-34) U/L Alkaline Phosphatase (38-126) U/L Troponin I <0.012 (0.000-0.034) ng/mL NT-Pro-B Natriuret Pep pg/mL Total Protein (6.3-8.2) g/dL Albumin (3.5-5.0) g/dL Disposition Clinical Impression: Cellulitis of nasal tip, CHF (congestive heart failure) Disposition: HOME SELF-CARE Condition: Stable Instructions (If sedation given, give patient instructions): Cellulitis (ED) Additional Instructions: Please return to the Emergency Department if symptoms worsen or any other concerns. Prescriptions: Sulfamethox-Tmp 800-160Mg [Bactrim Ds] 1 each PO Q12HR #14 tab Is patient prescribed a controlled substance at d/c from ED?: No Referrals: Otto Wills MD [Primary Care Provider] - 1-2 days Time of Disposition: 14:42
[2020-03-28 13:50] LABS: Basophils % (A) 1 %; Eosinophils # (A) 0.2 k/uL (0-0.7); Eosinophils % (A) 4 %; HCT 42.7 % (34.0-46.0); HGB 14.7 gm/dL (11.4-16.0); Lymphocytes # (A) 0.5 k/uL (1.0-4.8); Lymphocytes % (A) 11 %; MCH 32.8 pg (25.0-35.0); MCHC 34.4 g/dL (31.0-37.0); MCV 95.3 fL (80.0-100.0); Mean Platelet Volume 7.7; Monocytes # (A) 0.3 k/uL (0-1.0); Monocytes % (A) 6 %; Neutrophils # (A) 3.7 k/uL (1.3-7.7); Neutrophils % (A) 77 %; Platelet Count 151 k/uL (150-450); RBC 4.48 m/uL (3.80-5.40); RDW 13.1 % (11.5-15.5); WBC 4.8 k/uL (3.8-10.6)
[2020-03-28 14:01] LABS: Albumin 4.7 g/dL (3.5-5.0); Calcium 9.4 mg/dL (8.4-10.2); Potassium 3.8 mmol/L (3.5-5.1); Total Protein 7.4 g/dL (6.3-8.2)
--- NOTE | 2020-03-28 14:12 | XR ---
EXAMINATION TYPE: XR chest 2V DATE OF EXAM: 03/28/2020 COMPARISON: 09/22/2016 HISTORY: Short of breath TECHNIQUE: FINDINGS: There is no heart failure nor confluent pneumonic infiltrate. Costophrenic angles are clear . There are no hilar masses. Bony thorax is intact. There are chest leads. IMPRESSION: No active cardiopulmonary disease. Normal heart. No adverse change.
[2020-03-28 14:17] VITALS: RESP 16
[2020-03-28 14:52] VITALS: BP 106/72; PULSE 95
== END 2020-03-28 14:52 | disposition home or self-care (01) ==
LOC: EC 13:01
DX: I11.0 Hypertensive heart disease with heart failure (principal); J34.0 Abscess, furuncle and carbuncle of nose; I50.9 Heart failure, unspecified; R00.0 Tachycardia, unspecified; F41.9 Anxiety disorder, unspecified; J44.9 Chronic obstructive pulmonary disease, unspecified; I48.91 Unspecified atrial fibrillation; E78.5 Hyperlipidemia, unspecified; Z88.0 Allergy status to penicillin; Z88.1 Allergy status to other antibiotic agents; Z87.891 Personal history of nicotine dependence; Z90.49 Acquired absence of other specified parts of digestive tract; Z90.710 Acquired absence of both cervix and uterus; Z95.5 Presence of coronary angioplasty implant and graft
CPT/HCPCS: 36415; 71046; 80053; 83880; 84484; 85025; 93005; 99284

== ENCOUNTER 2021-03-18 17:03 | Emergency (ER) | payer MEDICARE, BC ==
[2021-03-18 18:52] VITALS: BP 155/81; PULSE 112; RESP 20; TEMP 98.7
[2021-03-19] MEDS ORDERED: AZITHROMYCIN 500 MG TAB PO STA (02:32)
[2021-03-19] MEDS ORDERED: LIDOCAINE VISCOUS 2% 15 ML CUP MUCOUS MEM STA (02:32)
--- NOTE | 2021-03-19 02:32 | ED ---
Allergic Reaction HPI - General Chief complaint: Allergic Reaction Stated complaint: Sore Throat Time Seen by Provider: 03/19/21 02:21 Source: patient Mode of arrival: ambulatory Limitations: no limitations - History of Present Illness Initial Comments: Patient is an 85-year-old woman who presents because she believes she is developing ALLERGIC reaction to an antibiotic. The patient states she had gone to see her physician for sore throat and was started on antibiotic. The patient states the sore throat is been going on a couple of days now. She started the antibiotic earlier tonight. Now she is feeling weak and fatigued. She is having some nausea. Patient continues to have sore throat, mainly pain with swallowing. She has not noted change in her voice. MD Complaint: allergic reaction, other (Sore throat) Onset/Timin -: days(s) Exposure: medication Severity: mild Treatment Prior to Arrival: none - Related Data Home Medications Medication Instructions Recorded Confirmed Fluticasone/Salmeterol [Advair 1 puff INHALATION RT-BID 03/25/16 03/28/21 250-50 Diskus] Furosemide [Lasix] 40 mg PO BID 08/19/16 03/28/21 Tiotropium 18 Mcg/Puff [Spiriva] 1 cap INHALATION RT-DAILY 08/19/16 03/28/21 Cholecalciferol (Vitamin D3) 2,000 unit PO DAILY 04/26/17 03/28/21 [Vitamin D3] Ferrous Sulfate [Iron (65 MG 325 mg PO DAILY 07/27/17 03/28/21 Elemental)] Previous Rx's Medication Instructions Recorded Albuterol Inhaler [Ventolin Hfa 1 puff INHALATION RT-QID #1 gm 03/26/21 Inhaler] Apixaban [Eliquis] 2.5 mg PO BID #60 tablet 03/26/21 Atorvastatin [Lipitor] 20 mg PO HS #30 tab 03/26/21 Amiodarone [Cordarone] 200 mg PO DAILY tab 03/30/21 Dexamethasone [Decadron] 6 mg PO DAILY #5 tablet 03/30/21 LORazepam [Ativan] 1 mg PO HS #3 tab 03/30/21 Melatonin 6 mg PO HS tablet 03/30/21 Azithromycin [Zithromax] 500 mg PO DAILY@1800 #5 tab 04/01/21 Metoprolol Tartrate [Lopressor] 75 mg PO TID tab 04/01/21 Allergies Allergy/AdvReac Type Severity Reaction Status Date / Time amoxicillin [From Augmentin] Allergy Unknown Verified 03/28/21 12:36 cefuroxime axetil Allergy Unknown Verified 03/28/21 12:36 [From Ceftin] clavulanic acid Allergy Unknown Verified 03/28/21 12:36 [From Augmentin] Review of Systems ROS Statement: Those systems with pertinent positive or pertinent negative responses have been documented in the HPI. ROS Other: All systems not noted in ROS Statement are negative. Constitutional: Reports: weakness. Denies: fever, chills Eyes: Denies: eye pain, vision change ENT: Reports: throat pain. Denies: congestion Respiratory: Denies: cough, dyspnea, wheezes Cardiovascular: Denies: chest pain, palpitations Gastrointestinal: Reports: nausea. Denies: abdominal pain, vomiting, diarrhea Skin: Denies: rash Neurological: Denies: headache Past Medical History Past Medical History: Atrial Fibrillation, Coronary Artery Disease (CAD), Heart Failure, COPD, GERD/Reflux, GI Bleed, Hearing Disorder / Deafness, Hyperlipidemia, Hypertension, Myocardial Infarction ([place]), Osteoarthritis (OA), Pneumonia, Renal Disease, Respiratory Disorder Additional Past Medical History / Comment(s): HEARING AIDS., CHF , HX OF C-DIFF ("A FEW YRS AGO")., DIVERTICULOSIS, BRONCHITIS, 02 @ 2 LITERS N/C AT NIGHT, ROSACEA., STATES DIARRHEA FOR 7 WEEKS-STOOLS DARK., STATES CHECKING FOR C-DIFF. Last Myocardial Infarction Date:: unsure of date History of Any Multi-Drug Resistant Organisms: None Reported Past Surgical History: Adenoidectomy, Appendectomy, Heart Catheterization, Hysterectomy, Orthopedic Surgery, Tonsillectomy Additional Past Surgical History / Comment(s): Right knee arthroscopy for torn meniscus. Colonoscopies , Bilateral eyelid surgery. PARTIAL HYSTERECTOMY STILL HAS PART OF LT OVARY, EGD. Past Anesthesia/Blood Transfusion Reactions: No Reported Reaction Additional Past Anesthesia/Blood Transfusion Reaction / Comment(s): . Past Psychological History: Anxiety Smoking Status: Former smoker Past Alcohol Use History: Daily Past Drug Use History: None Reported - Past Family History Brother(s) Additional Family Medical History / Comment(s): Patient had 3 brothers and one is living and 93 years of age and [place] with history of Alzheimer's dementia, coronary artery disease, CHF, A. fib, COPD. Patient has 2 brothers that have passed one from alcoholism and one from a traumatic head injury from a fall. Sister(s) Additional Family Medical History / Comment(s): Patient has one sister that of ovarian cancer. Patient has one son that from alcoholic complications. Father Family Medical History: Cancer Additional Family Medical History / Comment(s): Father at age 77yrs of cancer which pt believes may have started in his throat. Mother Family Medical History: Dementia Additional Family Medical History / Comment(s): Mother at age 95yrs. She was very healthy most of her life- she had dementia at the very end of her life. General Exam Limitations: no limitations General appearance: alert, in no apparent distress Head exam: Present: atraumatic, normocephalic Eye exam: Present: normal appearance. Absent: scleral icterus, conjunctival injection ENT exam: Present: mucous membranes moist, other (Pharynx is injected. Uvula is midline with no edema. No evidence of peritonsillar abscess.) Neck exam: Present: normal inspection, tenderness, full ROM, lymphadenopathy. Absent: meningismus Respiratory exam: Present: normal lung sounds bilaterally. Absent: respiratory distress, wheezes, rales, rhonchi, stridor Cardiovascular Exam: Present: regular rate, normal rhythm, normal heart sounds GI/Abdominal exam: Present: soft. Absent: distended, tenderness, guarding, organomegaly Neurological exam: Present: alert Skin exam: Present: warm, dry, intact, normal color. Absent: rash Course Vital Signs 03/18/21 18:49 Temperature 98.7 F Pulse Rate 112 H Respiratory 20 Rate Blood Pressure 155/81 O2 Sat by Pulse 98 Oximetry Medical Decision Making - Medical Decision Making Patient is 85-year-old woman who believes she is not tolerating her current antibiotic for pharyngitis. In accord with the patient wishes we'll change antibiotic and have her follow with her physician. There is no concrete evidence however of ALLERGIC reaction at this point. - Lab Data Lab Results 03/18/21 03/19/21 Range/Units 18:55 02:48 Coronavirus (PCR) Not Detected (Not Detectd) Group A Strep Rapid Negative (Negative) Disposition Clinical Impression: Pharyngitis Disposition: HOME SELF-CARE Condition: Good Instructions (If sedation given, give patient instructions): Pharyngitis (ED) Is patient prescribed a controlled substance at d/c from ED?: No Referrals: Otto Wills MD [Primary Care Provider] - 1-2 days
== END 2021-03-19 03:04 | disposition home or self-care (01) ==
LOC: EC 17:03
DX: J02.9 Acute pharyngitis, unspecified (principal); I11.0 Hypertensive heart disease with heart failure; I50.9 Heart failure, unspecified; I48.91 Unspecified atrial fibrillation; I25.10 Atherosclerotic heart disease of native coronary artery without angina pectoris; J44.9 Chronic obstructive pulmonary disease, unspecified; K21.9 Gastro-esophageal reflux disease without esophagitis; E78.5 Hyperlipidemia, unspecified; I25.2 Old myocardial infarction; M19.90 Unspecified osteoarthritis, unspecified site; F41.9 Anxiety disorder, unspecified; Z79.01 Long term (current) use of anticoagulants; Z88.1 Allergy status to other antibiotic agents; Z90.49 Acquired absence of other specified parts of digestive tract; Z90.710 Acquired absence of both cervix and uterus; Z87.891 Personal history of nicotine dependence
CPT/HCPCS: 87081; 87430; 87635; 99283

== ENCOUNTER 2021-03-22 18:33 | Inpatient (IN) | payer MEDICARE, BC ==
[2021-03-22] MEDS ORDERED: ACETAMINOPHEN TAB 500 MG TAB PO STA (18:52)
[2021-03-22] MEDS ORDERED: SODIUM CHLORIDE 0.9% 1,000 ML IV STA (18:52)
[2021-03-22 19:34] LABS: Basophils % (A) 1 %; Eosinophils # (A) 0.1 k/uL (0-0.7); Eosinophils % (A) 2 %; HCT 37.6 % (34.0-46.0); HGB 12.2 gm/dL (11.4-16.0); Lymphocytes # (A) 0.5 k/uL (1.0-4.8); Lymphocytes % (A) 12 %; MCH 32.5 pg (25.0-35.0); MCHC 32.5 g/dL (31.0-37.0); MCV 99.8 fL (80.0-100.0); Mean Platelet Volume 8.5; Monocytes # (A) 0.3 k/uL (0-1.0); Monocytes % (A) 7 %; Neutrophils # (A) 3.2 k/uL (1.3-7.7); Neutrophils % (A) 77 %; Platelet Count 144 k/uL (150-450); RBC 3.77 m/uL (3.80-5.40); RDW 13.2 % (11.5-15.5); WBC 4.2 k/uL (3.8-10.6)
[2021-03-22] MEDS ORDERED: HEPARIN SODIUM 1,000 UN/ML (10ML VL) IV PRN (19:36)
[2021-03-22] MEDS ORDERED: HEPARIN SODIUM 1,000 UN/ML (10ML VL) IV ONE (19:36)
--- NOTE | 2021-03-22 19:40 | ED ---
General Adult HPI - General Chief complaint: Shortness of Breath Stated complaint: CHANTE Time Seen by Provider: 03/22/21 18:51 Source: patient, EMS Mode of arrival: EMS Limitations: no limitations - History of Present Illness Initial comments: Dictation was produced using [employer] dictation software. please excuse any grammatical, word or spelling errors. Chief Complaint: 85-year-old female presents emergency department for cough, shortness of breath and fevers History of Present Illness: Patient is a 85-year-old female she has multiple comorbidities including atrial fibrillation, coronary artery disease, heart failure and COPD. She presents to the emergency department for cough or shortness of breath. Patient states that over the last couple days symptoms have been progressively worsening. Patient is a productive cough. She is vaccinated for coronavirus. No obvious exposures. She does complain of constitutional symptoms including fevers. No nausea or vomiting. No abdominal pain. Patient also complaining of some swelling to his lower extremities. States is typical of her heart failure exacerbations. Denies any runny nose or sore throat. The ROS documented in this emergency department record has been reviewed and confirmed by me. Those systems with pertinent positive or negative responses have been documented in the HPI. All other systems are other negative and/or noncontributory. PHYSICAL EXAM: General Impression: Alert and oriented x3, acute distress secondary to coughing HEENT: Normocephalic atraumatic, extra-ocular movements intact, pupils equal and reactive to light bilaterally, mucous membranes moist. Cardiovascular: Heart regular rate and rhythm Chest: Able to complete full sentences, no retractions, no tachypnea, diffuse lung crackles Abdomen: abdomen soft, non-tender, non-distended, no organomegaly Musculoskeletal: Pulses present and equal in all extremities, 1+ peripheral edema Motor: no focal deficits noted Neurological: CN II-XII grossly intact, no focal motor or sensory deficits noted Skin: Intact with no visualized rashes Psych: Normal affect and mood ED course: 85-year-old female with multiple cardiopulmonary comorbid disease presents to emergency department for cough shortness of breath. Vital signs upon arrival shows Septra 101.2, heart rate of 135, normal blood pressure with 94% oxygen saturation 4 L is cannula. Patient reports that she wears oxygen at home. electronic organ technician approached me and states that patient is noncompliant with her and a correlation medications for A. fib crit she believes that she does not have A. fib. Laboratory evaluation obtained. CBC remarkable. Coag panel is negative. Metabolic panel shows findings within acceptable limits. Troponin is 0.067. Patient is history of elevated troponin in 2017. Hasn't had a positive troponin since 2016. Slightly secondary to A. fib. Brain natruretic peptide is 9570. Patient is chronically worse positive. Patient states she's been asymptomatic for 4 weeks. Patient on a candidate for monoclonal antibodies. Patient given Decadron patient started Cardizem for RVR control. Patient placed back on 2 L nasal cannula which is her home oxygen found to become hypoxic into the high 80s. Patient's oxygen via nasal cannula was increased to 4 L. Patient maintained good saturations in the low 90s with 4 L. Patient will be admitted for treatment of A. fib RVR, hypoxic respiratory failure secondary to COVID-19. Case discussed with Dr. Wills is willing to accept patients care. Patient is here with multiple issues causing her are multifactorial secondary to A. fib, COVID-19 and heart failure. Patient treated with Lasix, Decadron. Patient placed back on heparin embolic prophylaxis. EKG interpretation: Ventricular rate 135, A. fib with rapid ventricular rate, QRS 102, QTc 501. No UT prolongation, no QTC prolongation, no ST or T-wave changes noted. EKG compared to 01/05/2021 showing no changes. Overall, this EKG is unremarkable - Related Data Home Medications Medication Instructions Recorded Confirmed Fluticasone/Salmeterol [Advair 1 puff INHALATION RT-BID 03/25/16 03/22/21 250-50 Diskus] Furosemide [Lasix] 40 mg PO BID 08/19/16 03/22/21 Tiotropium 18 Mcg/Puff [Spiriva] 1 cap INHALATION RT-DAILY 08/19/16 03/22/21 Cholecalciferol (Vitamin D3) 2,000 unit PO DAILY 04/26/17 03/22/21 [Vitamin D3] LORazepam [Ativan] 1 mg PO HS 04/26/17 03/22/21 Ferrous Sulfate [Feosol] 325 mg PO DAILY 07/27/17 03/22/21 Amiodarone [Cordarone] 50 mg PO DAILY 03/22/21 03/22/21 Azithromycin [Zithromax Z-pack (6 See Taper PO DAILY 03/22/21 03/22/21 tabs)] Metoprolol Tartrate [Lopressor] 25 mg PO BID 03/22/21 03/22/21 Simvastatin [Zocor] 40 mg PO HS 03/22/21 03/22/21 Allergies Allergy/AdvReac Type Severity Reaction Status Date / Time amoxicillin [From Augmentin] Allergy Unknown Verified 03/22/21 19:34 cefuroxime axetil Allergy Unknown Verified 03/22/21 19:34 [From Ceftin] clavulanic acid Allergy Unknown Verified 03/22/21 19:34 [From Augmentin] Review of Systems ROS Statement: Those systems with pertinent positive or pertinent negative responses have been documented in the HPI. ROS Other: All systems not noted in ROS Statement are negative. Past Medical History Past Medical History: Atrial Fibrillation, Coronary Artery Disease (CAD), Heart Failure, COPD, GERD/Reflux, GI Bleed, Hearing Disorder / Deafness, Hyperlipidemi a, Hypertension, Myocardial Infarction ([place]), Osteoarthritis (OA), Pneumonia, Renal Disease, Respiratory Disorder Additional Past Medical History / Comment(s): HEARING AIDS., CHF , HX OF C-DIFF ("A FEW YRS AGO")., DIVERTICULOSIS, BRONCHITIS, 02 @ 2 LITERS N/C AT NIGHT, ROSACEA., STATES DIARRHEA FOR 7 WEEKS-STOOLS DARK., STATES CHECKING FOR C-DIFF. Last Myocardial Infarction Date:: unsure of date History of Any Multi-Drug Resistant Organisms: None Reported Past Surgical History: Adenoidectomy, Appendectomy, Heart Catheterization, Hysterectomy, Orthopedic Surgery, Tonsillectomy Additional Past Surgical History / Comment(s): Right knee arthroscopy for torn meniscus. Colonoscopies , Bilateral eyelid surgery. PARTIAL HYSTERECTOMY STILL HAS PART OF LT OVARY, EGD. Past Anesthesia/Blood Transfusion Reactions: No Reported Reaction Additional Past Anesthesia/Blood Transfusion Reaction / Comment(s): . Past Psychological History: Anxiety Smoking Status: Former smoker Past Alcohol Use History: Daily Past Drug Use History: None Reported - Past Family History Brother(s) Additional Family Medical History / Comment(s): Patient had 3 brothers and one is living and 93 years of age and [place] with history of Alzheimer's dementia, coronary artery disease, CHF, A. fib, COPD. Patient has 2 brothers that have passed one from alcoholism and one from a traumatic head injury from a fall. Sister(s) Additional Family Medical History / Comment(s): Patient has one sister that of ovarian cancer. Patient has one son that from alcoholic complications. Father Family Medical History: Cancer Additional Family Medical History / Comment(s): Father at age 77yrs of cancer which pt believes may have started in his throat. Mother Family Medical History: Dementia Additional Family Medical History / Comment(s): Mother at age 95yrs. She was very healthy most of her life- she had dementia at the very end of her life. General Exam Limitations: no limitations Course Vital Signs 03/22/21 18:36 Temperature 101.2 F H Pulse Rate 135 H Respiratory 20 Rate Blood Pressure 134/82 O2 Sat by Pulse 94 L Oximetry Medical Decision Making - Lab Data Result diagrams: 03/22/21 19:08 03/22/21 19:08 Lab Results 03/22/21 03/22/21 03/22/21 Range/Units 18:53 19:08 19:08 WBC 4.2 (3.8-10.6) k/uL RBC 3.77 L (3.80-5.40) m/uL Hgb 12.2 (11.4-16.0) gm/dL Hct 37.6 (34.0-46.0) % MCV 99.8 (80.0-100.0) fL MCH 32.5 (25.0-35.0) pg MCHC 32.5 (31.0-37.0) g/dL RDW 13.2 (11.5-15.5) % Plt Count 144 L (150-450) k/uL MPV 8.5 Neutrophils % 77 % Lymphocytes % 12 % Monocytes % 7 % Eosinophils % 2 % Basophils % 1 % Neutrophils # 3.2 (1.3-7.7) k/uL Lymphocytes # 0.5 L (1.0-4.8) k/uL Monocytes # 0.3 (0-1.0) k/uL Eosinophils # 0.1 (0-0.7) k/uL Basophils # 0.0 (0-0.2) k/uL PT 11.8 (9.0-12.0) sec INR 1.1 (<1.2) APTT 23.0 (22.0-30.0) sec Sodium (137-145) mmol/L Potassium (3.5-5.1) mmol/L Chloride (98-107) mmol/L Carbon Dioxide (22-30) mmol/L Anion Gap mmol/L BUN (7-17) mg/dL Creatinine (0.52-1.04) mg/dL Est GFR (CKD-EPI)AfAm (>60 ml/min/1.73 sqM) Est GFR (CKD-EPI)NonAf (>60 ml/min/1.73 sqM) Glucose (74-99) mg/dL Plasma Lactic Acid Jordon (0.7-2.0) mmol/L Calcium (8.4-10.2) mg/dL Magnesium (1.6-2.3) mg/dL Total Bilirubin (0.2-1.3) mg/dL AST (14-36) U/L ALT (4-34) U/L Alkaline Phosphatase (38-126) U/L Troponin I (0.000-0.034) ng/mL NT-Pro-B Natriuret Pep pg/mL Total Protein (6.3-8.2) g/dL Albumin (3.5-5.0) g/dL Coronavirus (PCR) Detected A (Not Detectd) 03/22/21 03/22/21 03/22/21 Range/Units 19:08 19:08 19:08 WBC (3.8-10.6) k/uL RBC (3.80-5.40) m/uL Hgb (11.4-16.0) gm/dL Hct (34.0-46.0) % MCV (80.0-100.0) fL MCH (25.0-35.0) pg MCHC (31.0-37.0) g/dL RDW (11.5-15.5) % Plt Count (150-450) k/uL MPV Neutrophils % % Lymphocytes % % Monocytes % % Eosinophils % % Basophils % % Neutrophils # (1.3-7.7) k/uL Lymphocytes # (1.0-4.8) k/uL Monocytes # (0-1.0) k/uL Eosinophils # (0-0.7) k/uL Basophils # (0-0.2) k/uL PT (9.0-12.0) sec INR (<1.2) APTT (22.0-30.0) sec Sodium 132 L (137-145) mmol/L Potassium 4.7 (3.5-5.1) mmol/L Chloride 92 L (98-107) mmol/L Carbon Dioxide 29 (22-30) mmol/L Anion Gap 11 mmol/L BUN 34 H (7-17) mg/dL Creatinine 1.20 H (0.52-1.04) mg/dL Est GFR (CKD-EPI)AfAm 47 (>60 ml/min/1.73 sqM) Est GFR (CKD-EPI)NonAf 41 (>60 ml/min/1.73 sqM) Glucose 123 H (74-99) mg/dL Plasma Lactic Acid Jordon 1.5 (0.7-2.0) mmol/L Calcium 8.8 (8.4-10.2) mg/dL Magnesium 2.1 (1.6-2.3) mg/dL Total Bilirubin 1.4 H (0.2-1.3) mg/dL AST 235 H (14-36) U/L ALT 126 H (4-34) U/L Alkaline Phosphatase 55 (38-126) U/L Troponin I 0.067 H* (0.000-0.034) ng/mL NT-Pro-B Natriuret Pep pg/mL Total Protein 6.9 (6.3-8.2) g/dL Albumin 4.3 (3.5-5.0) g/dL Coronavirus (PCR) (Not Detectd) 03/22/21 Range/Units 19:08 WBC (3.8-10.6) k/uL RBC (3.80-5.40) m/uL Hgb (11.4-16.0) gm/dL Hct (34.0-46.0) % MCV (80.0-100.0) fL MCH (25.0-35.0) pg MCHC (31.0-37.0) g/dL RDW (11.5-15.5) % Plt Count (150-450) k/uL MPV Neutrophils % % Lymphocytes % % Monocytes % % Eosinophils % % Basophils % % Neutrophils # (1.3-7.7) k/uL Lymphocytes # (1.0-4.8) k/uL Monocytes # (0-1.0) k/uL Eosinophils # (0-0.7) k/uL Basophils # (0-0.2) k/uL PT (9.0-12.0) sec INR (<1.2) APTT (22.0-30.0) sec Sodium (137-145) mmol/L Potassium (3.5-5.1) mmol/L Chloride (98-107) mmol/L Carbon Dioxide (22-30) mmol/L Anion Gap mmol/L BUN (7-17) mg/dL Creatinine (0.52-1.04) mg/dL Est GFR (CKD-EPI)AfAm (>60 ml/min/1.73 sqM) Est GFR (CKD-EPI)NonAf (>60 ml/min/1.73 sqM) Glucose (74-99) mg/dL Plasma Lactic Acid Jordon (0.7-2.0) mmol/L Calcium (8.4-10.2) mg/dL Magnesium (1.6-2.3) mg/dL Total Bilirubin (0.2-1.3) mg/dL AST (14-36) U/L ALT (4-34) U/L Alkaline Phosphatase (38-126) U/L Troponin I (0.000-0.034) ng/mL NT-Pro-B Natriuret Pep 9570 pg/mL Total Protein (6.3-8.2) g/dL Albumin (3.5-5.0) g/dL Coronavirus (PCR) (Not Detectd) Critical Care Time Critical Care Time: Yes Total Critical Care Time: 33 Disposition Clinical Impression: COVID-19, Heart failure, Hypoxia Disposition: ADMITTED IP TO THIS [facility] Condition: Critical Referrals: Otto Wills MD [Primary Care Provider] - 1-2 days
[2021-03-22 19:44] LABS: Albumin 4.3 g/dL (3.5-5.0); Calcium 8.8 mg/dL (8.4-10.2); Magnesium 2.1 mg/dL (1.6-2.3); Total Bilirubin 1.4 mg/dL (0.2-1.3); Total Protein 6.9 g/dL (6.3-8.2)
--- NOTE | 2021-03-22 19:44 | XR ---
EXAMINATION TYPE: XR chest 1V portable DATE OF EXAM: 03/22/2021 COMPARISON: 03/28/2020 HISTORY: Short of breath TECHNIQUE: FINDINGS: There is some mild pulmonary interstitial edema. Heart size is top normal. There is slight blunting of the right costophrenic angle. There are chest leads. IMPRESSION: There is pulmonary interstitial edema which is new compared to old exam and could be acut e heart failure. Acute interstitial pneumonia also possible.
[2021-03-22 19:45] LABS: Potassium 4.7 mmol/L (3.5-5.1)
[2021-03-22] MEDS ORDERED: HEPARIN SOD,PORK IN 0.45% NACL 25,000 UNIT in 0.45% NACL 1 250ML.BAG IV SCH (19:45)
[2021-03-22] MEDS ORDERED: DEXAMETHASONE SOD PHOSPHATE 10 MG/ML 1 ML VIAL IV STA (19:46)
[2021-03-22] MEDS ORDERED: DILTIAZEM DRIP BOLUS FROM BAG 1 MG SOLN IV ONE (19:48)
[2021-03-22 20:02] LABS: INR 1.1 (<1.2); Prothrombin Time 11.8 sec (9.0-12.0)
[2021-03-22] MEDS ORDERED: ASPIRIN 325 MG TAB PO STA (20:19)
[2021-03-22] MEDS: DILTIAZEM 125 MG in SODIUM CHLORIDE 0.9% 100 ML IV SCH (20:25)
[2021-03-22] MEDS: FUROSEMIDE 10 MG/ML 4 ML VIAL IV SCH (21:40)
[2021-03-23] MEDS ORDERED: ASPIRIN 325 MG TAB PO SCH (09:00)
[2021-03-23] MEDS ORDERED: DILTIAZEM DRIP BOLUS FROM BAG 1 MG SOLN IV STA (09:14)
[2021-03-23] MEDS: APIXABAN 2.5 MG TABLET PO SCH ×2 (09:43→21:59)
[2021-03-23] MEDS: ZINC SULFATE 220 MG CAP PO SCH (09:43)
[2021-03-23] MEDS: CHOLECALCIFEROL 25 MCG (1000 IU) TABLET PO SCH (09:43)
[2021-03-23] MEDS: METOPROLOL TARTRATE 25 MG TAB PO SCH ×2 (09:43→21:59)
[2021-03-23] MEDS: DEXAMETHASONE SOD PHOSPHATE 10 MG/ML 1 ML VIAL IVP SCH (09:44)
[2021-03-23] MEDS: AMIODARONE 100 MG TAB PO SCH (09:44)
[2021-03-23] MEDS: ASCORBIC ACID 500 MG TAB PO SCH ×2 (09:44→21:59)
[2021-03-23] MEDS: FUROSEMIDE 10 MG/ML 4 ML VIAL IV SCH ×2 (09:45→21:59)
--- NOTE | 2021-03-23 10:27 | P.CNPUL ---
History of Present Illness Consult date: 03/23/21 Requesting physician: Alex Crane Reason for consult: dyspnea Chief complaint: Dyspnea History of present illness: This is a 85-year-old white female patient of Dr. Wills, with past medical h istory of moderately severe COPD, Gold stage III disease at baseline on home oxygen at 3 L/m on as-needed basis, chronic systolic CHF with EF of 20-25%, paroxysmal atrial fibrillation used to be on Eliquis, which is not on her home med list now, anxiety, pulmonary hypertension related to chronic lung disease and chronic CHF, chronic kidney disease stage III, glaucoma and osteoarthritis. Patient follows with Dr. Crouch in the pulmonary clinic, she is maintained on Advair 250/50 Diskus and Spiriva on a daily basis. She came into the emergency department on 03/22/2021 at 1850 1 in the afternoon per EMS for evaluation of cough, shortness of breath and fevers. Patient states over the last couple of days or shortness of breath has been progressively worse, she has a productive cough, she isn't vaccinated for COVID 19, denies any obvious exposure. She is complaining about constitutional symptoms including fevers, no nausea or vomiting, no abdominal pain, she has some swelling in her bilateral lower extremities, denied any chest pain. Denies any runny nose or sore throat. She was noted to be in A. fib with RVR and was started on Cardizem drip and heparin infusion, her chest x-ray showing pulmonary interstitial edema. She also tested positive for COVID 19. The rest of the blood work showed normal white count of 4.2, hemoglobin 12.2, lymphocyte count of 0.5, sodium is 132, potassium is 4.7, chloride is 92, CO2 is 29, BUN is 34, creatinine is 1.2, plasma lactic acid is 1.5, AST was 235, ALT was 126, alk phos was 55, troponin was 0.067, proBNP was elevated at 9570. She did have a fever of 101.2F. Currently remains in A. fib with RVR with a rate of 120 to 1:30 BPM, continues on Cardizem infusion and 5 mg, she is currently on 3 L of oxygen pulse ox is 94%, her blood pressures are on the lower side with a BP of 89/71. Echocardiogram has been ordered and pending, patient was started on IV Lasix 40 mg twice daily. We started the on Decadron 6 mg daily, she continues on heparin infusion, cardiology consultation is pending, she appears to be in no acute distress. Review of Systems All systems: negative Constitutional: Denies chills, Denies fever Eyes: denies blurred vision, denies pain Ears, nose, mouth and throat: Denies headache, Denies sore throat Cardiovascular: Denies chest pain, Denies shortness of breath Respiratory: Reports cough with sputum, Reports dyspnea, Reports home oxygen, Denies cough Gastrointestinal: Denies abdominal pain, Denies diarrhea, Denies nausea, Denies vomiting Genitourinary: Denies dysuria, Denies hematuria Musculoskeletal: Denies myalgias Integumentary: Denies pruritus, Denies rash Neurological: Denies numbness, Denies weakness Psychiatric: Denies anxiety, Denies depression Endocrine: Denies fatigue, Denies weight change Past Medical History Past Medical History: Atrial Fibrillation, Coronary Artery Disease (CAD), Heart Failure, COPD, Eye Disorder, GERD/Reflux, GI Bleed, Hearing Disorder / Deafness, Hyperlipidemia, Hypertension, Myocardial Infarction ([place]), Osteoarthritis ([place]), Pneumonia, Renal Disease, Respiratory Disorder, Skin Disorder Additional Past Medical History / Comment(s): Covid+ 03/22/20 at [facility]. Pt diagnosed 03/18/21 with pharyngitis and is on antibiotic, nonischemic cardiomyopathy, pulmonary HTN, bronchitis, O2 at 2L/HS, gastritis, diverticular disease, DOUGLAS/aides bilaterally, bilateral eye glaucoma, arthritis bilateral hands, CKD, rosacia, past lumbar slipped disc/pain/improved now. Last Myocardial Infarction Date:: 2016 History of Any Multi-Drug Resistant Organisms: None Reported Past Surgical History: Adenoidectomy, Appendectomy, Heart Catheterization, Hysterectomy, Orthopedic Surgery, Tonsillectomy Additional Past Surgical History / Comment(s): 2017 cardiac cath/treated medically, partial hysterectomy/still has part of L ovary, R knee arthroscopy/torn meniscus, EGD, colonoscopies, bilateral blepharoplasties, bilateral eye cataract removal/laser surgery for glaucoma. Past Anesthesia/Blood Transfusion Reactions: No Reported Reaction Additional Past Anesthesia/Blood Transfusion Reaction / Comment(s): . Smoking Status: Former smoker - Past Family History Brother(s) Additional Family Medical History / Comment(s): Patient had 3 brothers and one is living and 93 years of age and [place] with history of Alzheimer's dementia, coronary artery disease, CHF, A. fib, COPD. Patient has 2 brothers that have passed one from alcoholism and one from a traumatic head injury from a fall. Sister(s) Additional Family Medical History / Comment(s): Patient has one sister that of ovarian cancer. Patient has one son that from alcoholic complications. Father Family Medical History: Cancer Additional Family Medical History / Comment(s): Father at age 77yrs of cancer which pt believes may have started in his throat. Mother Family Medical History: Dementia Additional Family Medical History / Comment(s): Mother at age 95yrs. She was very healthy most of her life- she had dementia at the very end of her life. Medications and Allergies Home Medications Medication Instructions Recorded Confirmed Type Fluticasone/Salmeterol [Advair 1 puff INHALATION RT-BID 03/25/16 03/22/21 History 250-50 Diskus] Furosemide [Lasix] 40 mg PO BID 08/19/16 03/22/21 History Tiotropium 18 Mcg/Puff [Spiriva] 1 cap INHALATION RT-DAILY 08/19/16 03/22/21 H istory Cholecalciferol (Vitamin D3) 2,000 unit PO DAILY 04/26/17 03/22/21 History [Vitamin D3] LORazepam [Ativan] 1 mg PO HS 04/26/17 03/22/21 History Ferrous Sulfate [Feosol] 325 mg PO DAILY 07/27/17 03/22/21 History Amiodarone [Cordarone] 50 mg PO DAILY 03/22/21 03/22/21 History Azithromycin [Zithromax Z-pack (6 See Taper PO DAILY 03/22/21 03/22/21 History tabs)] Metoprolol Tartrate [Lopressor] 25 mg PO BID 03/22/21 03/22/21 History Simvastatin [Zocor] 40 mg PO HS 03/22/21 03/22/21 History Allergies Allergy/AdvReac Type Severity Reaction Status Date / Time amoxicillin [From Augmentin] Allergy Unknown Verified 03/22/21 19:34 cefuroxime axetil Allergy Unknown Verified 03/22/21 19:34 [From Ceftin] clavulanic acid Allergy Unknown Verified 03/22/21 19:34 [From Augmentin] Physical Exam Vitals: Vital Signs Temp Pulse Resp BP Pulse Ox 03/23/21 07:46 98.9 F 112 H 18 90/62 95 03/23/21 07:28 112 H 18 90/62 95 03/23/21 05:42 127 H 20 84/62 96 03/23/21 02:20 128 H 18 87/54 93 L 03/23/21 02:00 131 H 16 79/61 95 03/23/21 00:30 144 H 17 89/71 94 L 03/23/21 00:00 142 H 22 92/70 94 L 03/22/21 23:30 131 H 19 92/55 94 L 03/22/21 23:00 133 H 19 99/61 93 L 03/22/21 22:30 124 H 18 102/69 94 L 03/22/21 22:00 98.9 F 111 H 18 98/64 92 L 03/22/21 21:30 120 H 16 83/51 91 L 03/22/21 21:00 135 H 20 96/53 92 L 03/22/21 20:30 128 H 17 133/74 91 L 03/22/21 20:00 138 H 17 131/77 92 L 03/22/21 18:36 101.2 F H 135 H 20 134/82 94 L Intake and Output 03/22/21 03/23/21 03/23/21 22:59 06:59 14:59 Intake Total 158.022 Balance 158.022 Intake: Intake, IV Titration 158.022 Amount Diltiazem 125 mg In 66.417 Sodium Chloride 0.9% 100 ml @ 10 MG/HR 10 mls/hr IV .[id number] JORDY Rx#: [id number] Heparin Sod,Pork in 0.45% 91.605 NaCl 25,000 unit In 0.45 % NaCl 1 250ml.bag @ 12 UNITS/KG/HR 7.348 mls/hr IV .Q24H JORDY Rx#: [id number] Other: Weight 61.235 kg 61.235 kg GENERAL EXAM: Alert, hard of hearing, pleasant, 85-year-old white female, on 3 L of oxygen the pulse ox of 94% comfortable in no apparent distress. HEAD: Normocephalic/atraumatic. EYES: Normal reaction of pupils, equal size. Conjunctiva pink, sclera white. NOSE: Clear with pink turbinates. THROAT: No erythema or exudates. NECK: No masses, no JVD, no thyroid enlargement, no adenopathy. CHEST: No chest wall deformity. Symmetrical expansion. LUNGS: Equal air entry with diffuse crackles CVS: Irregular rate and rhythm, normal S1 and S2, no gallops, no murmurs, no rubs ABDOMEN: Soft, nontender. No hepatosplenomegaly, normal bowel sounds, no guarding or rigidity. EXTREMITIES: No clubbing, mild lower extremity edema no cyanosis, 2+ pulses and upper and lower extremities. MUSCULOSKELETAL: Muscle strength and tone normal. SPINE: No scoliosis or deformity SKIN: No rashes CENTRAL NERVOUS SYSTEM: Alert and oriented -3. No focal deficits, tone is normal in all 4 extremities. PSYCHIATRIC: Alert and oriented -3. Appropriate affect. Intact judgment and insight. Results - Laboratory Findings CBC and BMP: 03/22/21 19:08 03/22/21 19:08 PT/INR, D-dimer PT 11.8 sec (9.0-12.0) 03/22/21 19:08 INR 1.1 (<1.2) 03/22/21 19:08 Abnormal lab findings: Abnormal Labs 03/22/21 03/22/21 03/22/21 18:53 19:08 19:08 RBC 3.77 L Plt Count 144 L Lymphocytes # 0.5 L APTT Sodium 132 L Chloride 92 L BUN 34 H Creatinine 1.20 H Glucose 123 H Total Bilirubin 1.4 H AST 235 H ALT 126 H Troponin I Coronavirus (PCR) Detected A 03/22/21 03/23/21 03/23/21 19:08 01:43 07:26 RBC Plt Count Lymphocytes # APTT 46.7 H 45.4 H Sodium Chloride BUN Creatinine Glucose Total Bilirubin AST ALT Troponin I 0.067 H* Coronavirus (PCR) - Diagnostic Findings Chest x-ray: report reviewed, image reviewed Assessment and Plan Plan: Assessment: #1. Acute on chronic hypoxic respiratory failure, multifactorial, related to acute exacerbation of systolic CHF, possibly COVID-19 pneumonia, and acute exacerbation of COPD. Patient presented to the hospital on 03/22/2021, with multiple issues, as found to have positive for COVID-19, at the same time patient had other complex medical issues including A. fib with RVR, acute systolic CHF, and COPD exacerbation. She will be treated with Decadron, and anticoagulation. She is vaccinated Against COVID 19. Not a candidate for Remdesivir in view of her low GFR, and multiple other medical issues #2. A. fib with RVR, was started on Cardizem infusion and heparin infusion #3. Elevated troponin, rule out possibility of non-ST elevated myocardial infarction, please refer to the cardiology consultation #4. Acute exacerbation of systolic CHF, and patient has nonischemic cardiomyopathy with EF of 20-25% #5. Pulmonary hypertension, related to chronic lung and heart disease #6. History of paroxysmal atrial fibrillation was on Eliquis in the past #7. Stage III COPD, patient is on home oxygen at 3 L on as-needed basis #8. Hypertension #9. Previous history of myocardial infarction #10. Osteoarthritis #11. Chronic kidney disease stage III #12. History of GI bleeding #13. Former smoking history, she carries [id number] smoking history, currently in remission #14. Anxiety Plan: Patient will continue on Decadron 6 mg daily Agree with Lasix at 40 mg twice daily Anticoagulation per cardiology We will add vitamins D, C and zinc We'll add Symbicort, continue patient's home dose Spiriva Home medications have been restarted Cardiology consultation has been requested Echo has been ordered continue to follow her clinical course and make further recommendations I performed a history & physical examination of the patient and discussed their management with my nurse practitioner, Katherin Fox. I reviewed the nurse practitioner's note and agree with the documented findings and plan of care. Lung sounds are positive for dim breath sounds throughout the lung murguia. The findings and the impression was discussed with the patient. I attest to the documentation by the nurse practitioner. Time with Patient: Greater than 30
[2021-03-23] MEDS: TIOTROPIUM 2.5 MCG INHALER INHALATION SCH (10:54)
--- NOTE | 2021-03-23 11:15 | P.CRDCN ---
History of Present Illness Consult date: 03/23/21 History of present illness: CHIEF COMPLAINT: A. fib with RVR HISTORY OF PRESENT ILLNESS: This is a 85-year-old female with a past medical history significant for chronic persistent atrial fibrillation, congestive heart failure, hypertension, and hyperlipidemia. Patient follows in the office with Dr. Pagan. We have been asked to see the patient in consultation for afib with RVR. She presented to the hospital secondary to SOB. Patient was found to be positive for Covid. Patient is currently in atrial fibrillation with heart rates in the 130s. She is on a Cardizem drip at 5mg/hr and a Heparin drip. She is also receiving IV lasix Q12 hours. She is on 3L NC. Blood pressure 60/62. DIAGNOSTICS: EKG reveals atrial fibrillation with RVR Chest xray pulmonary interstitial edema which is new compared to old exam and could be acute heart failure. Acute interstitial pneumonia also possible. Laboratory data: WBC 4.2. Hemoglobin 12.2. Platelet count 144. Sodium 132. Potassium 4.7. BUN 34. Creatinine 1.2. ProBNP 9570. Troponin 0.067. Current home cardiac medications include Zocor 40 mg at night, metoprolol titrate 25 mg twice a day, Lasix 40 mg twice a day, amiodarone 50 mg daily Echocardiogram completed in January 2020 to cardiology office revealed ejection fraction 55%, mild to moderate aortic regurgitation, moderate mitral regurgitation, severe tricuspid regurgitation She underwent cardiac catheterization in 2017 revealing minimal coronary artery disease REVIEW OF SYSTEMS: Thorough review of systems not completed secondary to limited evaluation/examination due to Covid19 PHYSICAL EXAM: Thorough physical exam not completed secondary to limited evaluation/examination due to Covid19 ASSESSMENT: Covid 19 Acute hypoxic respiratory failure Abnormal troponin, not suggestive of ACS Acute on chronic diastolic congestive heart failure, EF 55% in February 2020 Chronic persistent atrial fibrillation with RVR Hypertension Hyperlipidemia Valvular heart disease COPD PLAN: Obtain 2D echo to assess cardiac structure and function Discontinue IV heparin. Begin Eliquis 2.5mg BID Give Cardizem bolus 7.5mg now and increase infusion to 10mg/hr Continue IV lasix Continue additional home cardiac medications Further recommendations pending patient course Nurse practitioner note has been reviewed by physician. Signing provider agrees with the documented findings, assessment, and plan of care. Past Medical History Past Medical History: Atrial Fibrillation, Coronary Artery Disease (CAD), Heart Failure, COPD, Eye Disorder, GERD/Reflux, GI Bleed, Hearing Disorder / Deafness, Hyperlipidemia, Hypertension, Myocardial Infarction ([place]), Osteoarthritis (OA), Pneumonia, Renal Disease, Respiratory Disorder, Skin Disorder Additional Past Medical History / Comment(s): Covid+ 03/22/20 at [facility]. Pt diagnosed 03/18/21 with pharyngitis and is on antibiotic, nonischemic cardiomyopathy, pulmonary HTN, bronchitis, O2 at 2L/HS, gastritis, diverticular disease, HOONAH/aides bilaterally, bilateral eye glaucoma, arthritis bilateral hands, CKD, rosacia, past lumbar slipped disc/pain/improved now. Last Myocardial Infarction Date:: 2016 History of Any Multi-Drug Resistant Organisms: None Reported Past Surgical History: Adenoidectomy, Appendectomy, Heart Catheterization, Hysterectomy, Orthopedic Surgery, Tonsillectomy Additional Past Surgical History / Comment(s): 2017 cardiac cath/treated medically, partial hysterectomy/still has part of L ovary, R knee arthroscopy/torn meniscus, EGD, colonoscopies, bilateral blepharoplasties, bilateral eye cataract removal/laser surgery for glaucoma. Past Anesthesia/Blood Transfusion Reactions: No Reported Reaction Additional Past Anesthesia/Blood Transfusion Reaction / Comment(s): . Smoking Status: Former smoker - Past Family History Brother(s) Additional Family Medical History / Comment(s): Patient had 3 brothers and one is living and 93 years of age and [place] with history of Alzheimer's dementia, coronary artery disease, CHF, A. fib, COPD. Patient has 2 brothers that have passed one from alcoholism and one from a traumatic head injury from a fall. Sister(s) Additional Family Medical History / Comment(s): Patient has one sister that of ovarian cancer. Patient has one son that from alcoholic complications. Father Family Medical History: Cancer Additional Family Medical History / Comment(s): Father at age 77yrs of cancer which pt believes may have started in his throat. Mother Family Medical History: Dementia Additional Family Medical History / Comment(s): Mother at age 95yrs. She was very healthy most of her life- she had dementia at the very end of her life. Medications and Allergies Home Medications Medication Instructions Recorded Confirmed Type Fluticasone/Salmeterol [Advair 1 puff INHALATION RT-BID 03/25/16 03/22/21 History 250-50 Diskus] Furosemide [Lasix] 40 mg PO BID 08/19/16 03/22/21 History Tiotropium 18 Mcg/Puff [Spiriva] 1 cap INHALATION RT-DAILY 08/19/16 03/22/21 History Cholecalciferol (Vitamin D3) 2,000 unit PO DAILY 04/26/17 03/22/21 History [Vitamin D3] LORazepam [Ativan] 1 mg PO HS 04/26/17 03/22/21 History Ferrous Sulfate [Feosol] 325 mg PO DAILY 07/27/17 03/22/21 History Amiodarone [Cordarone] 50 mg PO DAILY 03/22/21 03/22/21 History Azithromycin [Zithromax Z-pack (6 See Taper PO DAILY 03/22/21 03/22/21 History tabs)] Metoprolol Tartrate [Lopressor] 25 mg PO BID 03/22/21 03/22/21 History Simvastatin [Zocor] 40 mg PO HS 03/22/21 03/22/21 History Allergies Allergy/AdvReac Type Severity Reaction Status Date / Time amoxicillin [From Augmentin] Allergy Unknown Verified 03/22/21 19:34 cefuroxime axetil Allergy Unknown Verified 03/22/21 19:34 [From Ceftin] clavulanic acid Allergy Unknown Verified 03/22/21 19:34 [From Augmentin] Physical Exam Vitals: Vital Signs Temp Pulse Resp BP Pulse Ox 03/23/21 07:46 98.9 F 112 H 18 90/62 95 03/23/21 07:28 112 H 18 90/62 95 03/23/21 05:42 127 H 20 84/62 96 03/23/21 02:20 128 H 18 87/54 93 L 03/23/21 02:00 131 H 16 79/61 95 03/23/21 00:30 144 H 17 89/71 94 L 03/23/21 00:00 142 H 22 92/70 94 L 03/22/21 23:30 131 H 19 92/55 94 L 03/22/21 23:00 133 H 19 99/61 93 L 03/22/21 22:30 124 H 18 102/69 94 L 03/22/21 22:00 98.9 F 111 H 18 98/64 92 L 03/22/21 21:30 120 H 16 83/51 91 L 03/22/21 21:00 135 H 20 96/53 92 L 03/22/21 20:30 128 H 17 133/74 91 L 03/22/21 20:00 138 H 17 131/77 92 L 03/22/21 18:36 101.2 F H 135 H 20 134/82 94 L Intake and Output 03/22/21 03/23/21 03/23/21 22:59 06:59 14:59 Intake Total 398.022 Output Total 300 Balance 98.022 Intake: Intake, IV Titration 158.022 Amount Diltiazem 125 mg In 66.417 Sodium Chloride 0.9% 100 ml @ 10 MG/HR 10 mls/hr IV .[id number] [facility] Rx#: [id number] Heparin Sod,Pork in 0.45% 91.605 NaCl 25,000 unit In 0.45 % NaCl 1 250ml.bag @ 12 UNITS/KG/HR 7.348 mls/hr IV .Q24H [facility] Rx#: [id number] Oral 240 Output: Urine 300 Other: Weight 61.235 kg 61.235 kg Results 03/22/21 19:08 03/22/21 19:08 Cardiac Enzymes 03/22/21 03/22/21 Range/Units 19:08 19:08 AST 235 H (14-36) U/L Troponin I 0.067 H* (0.000-0.034) ng/mL Coagulation 03/22/21 03/23/21 03/23/21 Range/Units 19:08 01:43 07:26 PT 11.8 (9.0-12.0) sec APTT 23.0 46.7 H 45.4 H (22.0-30.0) sec CBC 03/22/21 Range/Units 19:08 WBC 4.2 (3.8-10.6) k/uL RBC 3.77 L (3.80-5.40) m/uL Hgb 12.2 (11.4-16.0) gm/dL Hct 37.6 (34.0-46.0) % Plt Count 144 L (150-450) k/uL Comprehensive Metabolic Panel 03/22/21 Range/Units 19:08 Sodium 132 L (137-145) mmol/L Potassium 4.7 (3.5-5.1) mmol/L Chloride 92 L (98-107) mmol/L Carbon Dioxide 29 (22-30) mmol/L BUN 34 H (7-17) mg/dL Creatinine 1.20 H (0.52-1.04) mg/dL Glucose 123 H (74-99) mg/dL Calcium 8.8 (8.4-10.2) mg/dL AST 235 H (14-36) U/L ALT 126 H (4-34) U/L Alkaline Phosphatase 55 (38-126) U/L Total Protein 6.9 (6.3-8.2) g/dL Albumin 4.3 (3.5-5.0) g/dL Current Medications Generic Name Dose Route Start Last Admin Trade Name Freq PRN Reason Stop Dose Admin Albuterol Sulfate 1 puff 03/23/21 12:00 Albuterol Hfa Inhaler INHALATION RT-QID [facility] Amiodarone HCl 50 mg 03/23/21 09:00 03/23/21 09:44 Amiodarone 100 Mg Tab PO 50 mg DAILY [facility] Administration Apixaban 2.5 mg 03/23/21 09:00 03/23/21 09:43 Apixaban 2.5 Mg Tablet PO 2.5 mg BID [facility] Administration Protocol Ascorbic Acid 500 mg 03/23/21 09:00 03/23/21 09:44 Ascorbic Acid 500 Mg Tab PO 500 mg BID [facility] Administration Atorvastatin Calcium 20 mg 03/23/21 21:00 Atorvastatin 20 Mg Tab PO [facility] Budesonide/Formoterol Fumarate 2 puff 03/23/21 20:00 Symbicort 160-4.5 Mcg Inhaler INHALATION RT-BID [facility] Cholecalciferol 50 mcg 03/23/21 09:00 03/23/21 09:43 Cholecalciferol 25 Mcg (1000 Iu) Tablet PO 50 mcg DAILY [facility] Administration Dexamethasone Sodium Phosphate 6 mg 03/23/21 09:00 03/23/21 09:44 Dexamethasone Sod Phosphate 10 Mg/Ml 1 Ml Vial IVP 6 mg DAILY [facility] Administration Furosemide 40 mg 03/22/21 21:00 03/23/21 09:45 Furosemide 10 Mg/Ml 4 Ml Vial IV 40 mg Q12H [facility] Administration Heparin Sodium (Porcine) 0 unit 03/22/21 19:36 Heparin Sodium 1,000 Un/Ml (10ml Vl) IV PER PROTOCOL PRN Low PTT Protocol Diltiazem HCl 125 mg/ Sodium 125 mls @ 10 mls/hr 03/22/21 20:00 03/23/21 09:42 Chloride IV 10 mg/hr .[id number] [facility] 10 mls/hr Infusion 10 MG/HR Metoprolol Tartrate 25 mg 03/23/21 09:00 03/23/21 09:43 Metoprolol Tartrate 25 Mg Tab PO 25 mg BID [facility]Y Administration Tiotropium Johnson 2 puff 03/23/21 08:00 03/23/21 10:54 Tiotropium 2.5 Mcg Inhaler INHALATION Not Given RT-DAILY [facility] Zinc Sulfate 220 mg 03/23/21 09:00 03/23/21 09:43 Zinc Sulfate 220 Mg Cap PO 220 mg DAILY [facility]ORD[facility] Administration Intake and Output 03/22/21 03/23/21 03/23/21 22:59 06:59 14:59 Intake Total 398.022 Output Total 300 Balance 98.022 Intake: Intake, IV Titration 158.022 Amount Diltiazem 125 mg In 66.417 Sodium Chloride 0.9% 100 ml @ 10 MG/HR 10 mls/hr IV .[id number] [facility] Rx#: [id number] Heparin Sod,Pork in 0.45% 91.605 NaCl 25,000 unit In 0.45 % NaCl 1 250ml.bag @ 12 UNITS/KG/HR 7.348 mls/hr IV .Q24H [facility] Rx#: [id number] Oral 240 Output: Urine 300 Other: Weight 61.235 kg 61.235 kg Patient Weight 03/24/21 06:59 Weight 61.235 kg 03/22/21 19:08 03/22/21 19:08
[2021-03-23 11:34] VITALS: BMI 21.7
--- NOTE | 2021-03-23 11:37 | ECHOF ---
Referral Reason:shortness of breath MEASUREMENTS -------- HEIGHT: 172.7 cm WEIGHT: 61.2 kg BP: 90/62 RVIDd: 3.2 cm (< 3.3) IVSd: 0.9 cm (0.6 - 1.1) LVIDd: 3.7 cm (3.9 - 5.3) LVPWd: 1.1 cm (0.6 - 1.1) IVSs: 1.3 cm LVIDs: 3.0 cm LVPWs: 1.3 cm LA Diam: 3.8 cm (2.7 - 3.8) LAESV Index (A-L): 30.10 ml/m RAP: 5.00 mmHg RVSP: 61.41 mmHg FINDINGS -------- Atrial fibrillation. This was a technically adequate study. Limited Study The left ventricular size is normal. Left ventricular wall thickness is normal. Overall left vent ricular systolic function is moderate-severely impaired with, an EF between 30 - 35 %. LA is midly dilated 29-33ml/m2. The right atrium is mildly enlarged. There is mild aortic regurgitation. Moderate mitral regurgitation is present. Severe tricuspid regurgitation present. There is severe pulmonary hypertension. The right ventric ular systolic pressure, as measured by Doppler, is 61.41mmHg. There is no pericardial effusion. CONCLUSIONS -------- 1. The left ventricular size is normal. 2. Left ventricular wall thickness is normal. 3. Overall left ventricular systolic function is moderate-severely impaired with, an EF between 30 - 35 %. 4. LA is midly dilated 29-33ml/m2. 5. The right atrium is mildly enlarged. 6. There is mild aortic regurgitation. 7. Moderate mitral regurgitation is present. 8. Severe tricuspid regurgitation present. 9. There is severe pulmonary hypertension. 10. The right ventricular systolic pressure, as measured by Doppler, is 61.41mmHg. SENIOR SOFTWARE QA ANALYST: Radha Rivas RD
[2021-03-23] MEDS: DILTIAZEM 125 MG in SODIUM CHLORIDE 0.9% 100 ML IV SCH (11:52)
[2021-03-23] MEDS: ALBUTEROL HFA INHALER INHALATION SCH ×3 (12:51→21:47)
--- NOTE | 2021-03-23 13:40 | P.HPIM ---
History of Present Illness H&P Date: 03/23/21 HISTORY OF PRESENT ILLNESS This is an 85-year-old female patient of Dr. Wills and Dr. Pagan with past medical history of chronic persistent atrial fibrillation, chronic systolic heart failure, pulmonary hypertension, COPD with chronic hypoxic respiratory failure on home O2 at 3 L as needed, hypertension, hyperlipidemia, chronic kidney disease stage III, generalized osteoarthritis Patient gives history that starting 4 weeks ago she developed a sore throat and the following week he was significantly worse. She called the office for appointment but was unable to come into the building due to need for Covid testing which she completed and came back negative. She was complaining by the time of fever and earache and was placed on a steroid. She subsequently developed a rash and presented to the emergency center on March 19 for possible ALLERGIC reaction and was subsequently placed on a Z-Narciso. Covid testing at that time was also negative. Regarding anticoagulation. She states she was quite anxious reading the side effects of eliquis and decided to stop taking it and instead was taking aspirin 81 mg. Patient has been fully vaccinated but has not received a booster which she was due for. She presented again on March 22 to the emergency center due to cough shortness of breath and fevers for the past couple days and gradually worsening. She denied having any abdominal pain, nausea or vomiting. EKG was atrial fibrillation with RVR. Heart rate was running in the 120s and 130s and patient was started on Cardizem drip, heparin drip and IV Lasix 40 mg twice daily. CBC was unremarkable except for a platelet count of 144. Sodium 132, potassium 4.7, chloride 92, CO2 29, BUN 34 creatinine 1.2. Blood sugar 123. INR 1.1. Total bilirubin 1.4, AST 235, ALT 126. Alkaline phosphatase 55. Troponin 0.067. Lactic acid 1.5. Coronal virus PCR detected. ProBNP 9570. Chest x-ray reveals pulmonary interstitial edema could be acute heart failure. Acute interstitial pneumonia also possible. Echocardiogram reveals EF of 30-35%, mild aortic regurgitation, moderate mitral regurgitation, severe tricuspid regurgitation, severe pulmonary hypertension. Patient has been seen by cardiology as well as by pulmonary medicine. REVIEW OF SYSTEMS Constitutional: No fever, no chills, no night sweats. No weight change. No weakness, fatigue or lethargy. No daytime sleepiness. EENT: No headache. No blurred vision or double vision, no loss of vision. No loss of Hearing, no ringing in the ears, no dizziness. No nasal drainage or congestion. No epistaxis. No sore throat. Lungs: Reports shortness of breath, reports cough, no sputum production. No wheezing. Cardiovascular: No chest pain, no lower extremity edema. No palpitations. No paroxysmal nocturnal dyspnea. No orthopnea. No lightheadedness or dizziness. No syncopal episodes. Abdominal: No abdominal pain. No nausea, vomiting. No diarrhea. No constipation. No bloody or tarry stools. No loss of appetite. Genitourinary: No dysuria, increased frequency, urgency. No urinary retention. Musculoskeletal: No myalgias. No muscle weakness, no gait dysfunction, no frequent falls. No back pain. No neck pain. Integumentary: No wounds, no lesions. No rash or pruritus. No unusual bruising. No change in hair or nails. Neurologic: No aphasia. No facial droop. No change in mentation. No head injury. No headache. No paralysis. No paresthesia. Psychiatric: No depression. Reports anxiety. No mood swings. Endocrine: No abnormal blood sugars. No weight change. No excessive sweating or thirst. No cold intolerance. SOCIAL HISTORY Patient was a smoker for 55 years and quit in 2004. She states she drinks 1-2 glasses of wine most nights. 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 She has no pets in the home. She is and is independent. FAMILY HISTORY Mother at age 95yrs. She was very healthy most of her life- she had dementia at the very end of her life. Father at age 77yrs of cancer which pt believes may have started in his throat. Patient had 3 brothers and one is living and 93 years of age and [place] with history of Alzheimer's dementia, coronary artery disease, CHF, A. fib, COPD. Patient has 2 brothers that have passed one from alcoholism and one from a traumatic head injury from a fall. Patient has one sister that of ovarian cancer. Patient has one son that from alcoholic complications. PHYSICAL EXAMINATION Gen: This is a thin 85-year-old female. She is resting in bed appears to be comfortable and in no acute distress. HEENT: Head is atraumatic, normocephalic. Pupils equal, round. Sclerae is anicteric. NECK: Supple. No JVD. No lymphadenopathy. No thyromegaly. LUNGS: Clear to auscultation. No wheezes or rhonchi. No intercostal retractions. HEART: Irregularly irregular rate and rhythm. No murmur. ABDOMEN: Soft. Bowel sounds are present. No masses. No tenderness. EXTREMITIES: No pedal edema. No calf tenderness. NEUROLOGICAL: Patient is awake, alert and oriented x3. Cranial nerves 2 through 12 are grossly intact. ASSESSMENT AND PLAN 1. Acute on chronic hypoxic respiratory failure secondary to a combination of acute exacerbation of systolic heart failure, possible Covid 19 pneumonia, acute exacerbation of COPD, A. fib with RVR. Continue oxygen therapy 2. Acute exacerbation of systolic heart failure. Continue Lasix 40 mg IV every 12 hours, I&O and daily weights, monitor renal function and electrolytes. Cardiology consult appreciated. 3. Possible Covid 19 pneumonia. Pulmonary consult appreciated. Patient's been started on Ventolin inhaler 4 times daily, vitamin supplements, Symbicort 2 puffs twice daily, dexamethasone 6 mg IV push daily, Spiriva. 4. Acute exacerbation of COPD. Continue Symbicort, Spiriva, albuterol, dexamethasone. 5. Chronic persistent atrial fibrillation presenting with RVR. IV heparin has been transitioned eliquis 2.5 mg twice daily, continue Cardizem drip, continue amiodarone 50 mg daily, Lopressor 25 mg twice daily. 6. Transaminitis possibly related to Covid 19. Continue to monitor. 7. Hypertension. Continue Lopressor. 8. Hyperlipidemia. Continue Lipitor 20 mg at bedtime. 9. Chronic kidney disease stage III. Monitor renal function, avoid nephrotoxic agents. 10. Valvular heart disease with mild aortic regurgitation, moderate mitral regurgitation, severe tricuspid regurgitation. 11. Severe pulmonary hypertension. 12. GI prophylaxis. Protonix. 13. DVT prophylaxis. Eliquis. 14. COVID-19 testing negative. Patient has been hospitalized during a pandemic. Patient will be admitted to the hospital for a minimum of 2 night stay. DISCHARGE PLAN Home. Impression and plan of care have been directed as dictated by the signing physician. Margaret Pulliam nurse practitioner acting as scribe for signing physician. Past Medical History Past Medical History: Atrial Fibrillation, Coronary Artery Disease (CAD), Heart Failure, COPD, Eye Disorder, GERD/Reflux, GI Bleed, Hearing Disorder / Deafness, Hyperlipidemia, Hypertension, Myocardial Infarction ([place]), Osteoarthritis (OA), Pneumonia, Renal Disease, Respiratory Disorder, Skin Disorder Additional Past Medical History / Comment(s): Covid+ 03/22/20 at [facility]. Pt diagnosed 03/18/21 with pharyngitis and is on antibiotic, nonischemic cardiomyopathy, pulmonary HTN, bronchitis, O2 at 2L/HS, gastritis, diverticular disease, [place]/aides bilaterally, bilateral eye glaucoma, arthritis bilateral hands, CKD, rosacia, past lumbar slipped disc/pain/improved now. Last Myocardial Infarction Date:: 2016 History of Any Multi-Drug Resistant Organisms: None Reported Past Surgical History: Adenoidectomy, Appendectomy, Heart Catheterization, Hysterectomy, Orthopedic Surgery, Tonsillectomy Additional Past Surgical History / Comment(s): 2017 cardiac cath/treated medically, partial hysterectomy/still has part of L ovary, R knee arthroscopy/torn meniscus, EGD, colonoscopies, bilateral blepharoplasties, bilateral eye cataract removal/laser surgery for glaucoma. Past Anesthesia/Blood Transfusion Reactions: No Reported Reaction Additional Past Anesthesia/Blood Transfusion Reaction / Comment(s): . Smoking Status: Former smoker - Past Family History Brother(s) Additional Family Medical History / Comment(s): Patient had 3 brothers and one is living and 93 years of age and [place] with history of Alzheimer's dementia, coronary artery disease, CHF, A. fib, COPD. Patient has 2 brothers that have passed one from alcoholism and one from a traumatic head injury from a fall. Sister(s) Additional Family Medical History / Comment(s): Patient has one sister that of ovarian cancer. Patient has one son that from alcoholic complications. Father Family Medical History: Cancer Additional Family Medical History / Comment(s): Father at age 77yrs of cancer which pt believes may have started in his throat. Mother Family Medical History: Dementia Additional Family Medical History / Comment(s): Mother at age 95yrs. She was very healthy most of her life- she had dementia at the very end of her life. Medications and Allergies Home Medications Medication Instructions Recorded Confirmed Type Fluticasone/Salmeterol [Advair 1 puff INHALATION RT-BID 03/25/16 03/22/21 History 250-50 Diskus] Furosemide [Lasix] 40 mg PO BID 08/19/16 03/22/21 History Tiotropium 18 Mcg/Puff [Spiriva] 1 cap INHALATION RT-DAILY 08/19/16 03/22/21 History Cholecalciferol (Vitamin D3) 2,000 unit PO DAILY 04/26/17 03/22/21 History [Vitamin D3] LORazepam [Ativan] 1 mg PO HS 04/26/17 03/22/21 History Ferrous Sulfate [Feosol] 325 mg PO DAILY 07/27/17 03/22/21 History Amiodarone [Cordarone] 50 mg PO DAILY 03/22/21 03/22/21 History Azithromycin [Zithromax Z-pack (6 See Taper PO DAILY 03/22/21 03/22/21 History tabs)] Metoprolol Tartrate [Lopressor] 25 mg PO BID 03/22/21 03/22/21 History Simvastatin [Zocor] 40 mg PO HS 03/22/21 03/22/21 History Allergies Allergy/AdvReac Type Severity Reaction Status Date / Time amoxicillin [From Augmentin] Allergy Unknown Verified 03/22/21 19:34 cefuroxime axetil Allergy Unknown Verified 03/22/21 19:34 [From Ceftin] clavulanic acid Allergy Unknown Verified 03/22/21 19:34 [From Augmentin] Physical Exam Vitals: Vital Signs Temp Pulse Resp BP Pulse Ox 03/23/21 08:00 18 03/23/21 07:46 98.9 F 112 H 18 90/62 95 03/23/21 07:28 112 H 18 90/62 95 03/23/21 05:42 127 H 20 84/62 96 03/23/21 02:20 128 H 18 87/54 93 L 03/23/21 02:00 131 H 16 79/61 95 03/23/21 00:30 144 H 17 89/71 94 L 03/23/21 00:00 142 H 22 92/70 94 L 03/22/21 23:30 131 H 19 92/55 94 L 03/22/21 23:00 133 H 19 99/61 93 L 03/22/21 22:30 124 H 18 102/69 94 L 03/22/21 22:00 98.9 F 111 H 18 98/64 92 L 03/22/21 21:30 120 H 16 83/51 91 L 03/22/21 21:00 135 H 20 96/53 92 L 03/22/21 20:30 128 H 17 133/74 91 L 03/22/21 20:00 138 H 17 131/77 92 L 03/22/21 18:36 101.2 F H 135 H 20 134/82 94 L Intake and Output 03/22/21 03/23/21 03/23/21 22:59 06:59 14:59 Intake Total 398.022 Output Total 300 Balance 98.022 Intake: Intake, IV Titration 158.022 Amount Diltiazem 125 mg In 66.417 Sodium Chloride 0.9% 100 ml @ 10 MG/HR 10 mls/hr IV .[id number] [facility] Rx#: [id number] Heparin Sod,Pork in 0.45% 91.605 NaCl 25,000 unit In 0.45 % NaCl 1 250ml.bag @ 12 UNITS/KG/HR 7.348 mls/hr IV .Q24H [facility] Rx#: [id number] Oral 240 Output: Urine 300 Other: Weight 61.235 kg 61.235 kg Results CBC & Chem 7: 03/22/21 19:08 03/22/21 19:08 Labs: Abnormal Lab Results - Last 24 Hours (Table) 03/22/21 03/22/21 03/22/21 Range/Units 18:53 19:08 19:08 RBC 3.77 L (3.80-5.40) m/uL Plt Count 144 L (150-450) k/uL Lymphocytes # 0.5 L (1.0-4.8) k/uL APTT (22.0-30.0) sec Sodium 132 L (137-145) mmol/L Chloride 92 L (98-107) mmol/L BUN 34 H (7-17) mg/dL Creatinine 1.20 H (0.52-1.04) mg/dL Glucose 123 H (74-99) mg/dL Total Bilirubin 1.4 H (0.2-1.3) mg/dL AST 235 H (14-36) U/L ALT 126 H (4-34) U/L Troponin I (0.000-0.034) ng/mL Coronavirus (PCR) Detected A (Not Detectd) 03/22/21 03/23/21 03/23/21 Range/Units 19:08 01:43 07:26 RBC (3.80-5.40) m/uL Plt Count (150-450) k/uL Lymphocytes # (1.0-4.8) k/uL APTT 46.7 H 45.4 H (22.0-30.0) sec Sodium (137-145) mmol/L Chloride (98-107) mmol/L BUN (7-17) mg/dL Creatinine (0.52-1.04) mg/dL Glucose (74-99) mg/dL Total Bilirubin (0.2-1.3) mg/dL AST (14-36) U/L ALT (4-34) U/L Troponin I 0.067 H* (0.000-0.034) ng/mL Coronavirus (PCR) (Not Detectd) Thrombosis Risk Factor Assmnt - Choose All That Apply Any of the Below Risk Factors Present?: Yes Each Factor Represents 1 point: Abnormal pulmonary function (COPD), Heart failure (<1month), Serious lung disease incl. pneumonia (< 1month) Other Risk Factors: Yes Each Risk Factor Represents 3 Points: Age 75 years or older Other congenital or acquired thrombophilia - If yes, enter type in comment: No Thrombosis Risk Factor Assessment Total Risk Factor Score: 6 Thrombosis Risk Factor Assessment Level: High Risk
[2021-03-23 20:32] LABS: Appearance,Urine Clear (Clear); Bilirubin,Urine Negative (Negative); Blood,Urine Negative (Negative); Color,Urine Yellow; Glucose,Urine (UA) Negative (Negative); Ketones,Urine Negative (Negative); Leukocyte Esterase,Urine Negative (Negative); Nitrite,Urine Negative (Negative); PH, Urine 5.5 (5.0-8.0); Protein,Urine Negative (Negative); Specific Gravity,Urine 1.015 (1.001-1.035); Urobilinogen,Urine <2.0 mg/dL (<2.0)
[2021-03-23] MEDS ORDERED: LORazepam 1 MG TAB PO SCH (21:00)
[2021-03-23] MEDS: SYMBICORT 160-4.5 MCG INHALER INHALATION SCH (21:48)
[2021-03-23] MEDS: ATORVASTATIN 20 MG TAB PO SCH (21:59)
[2021-03-23] MEDS: LEVOFLOXACIN 250MG-D5W PMX 250 MG in DEXTROSE/WATER 1 50ML.BAG IVPB SCH (22:08)
[2021-03-24] MEDS: DILTIAZEM 125 MG in SODIUM CHLORIDE 0.9% 100 ML IV SCH (02:34)
[2021-03-24] MEDS: ALBUTEROL HFA INHALER INHALATION SCH ×4 (07:29→19:47)
[2021-03-24] MEDS: TIOTROPIUM 2.5 MCG INHALER INHALATION SCH (07:30)
[2021-03-24] MEDS: SYMBICORT 160-4.5 MCG INHALER INHALATION SCH ×2 (07:30→19:47)
[2021-03-24] MEDS: DEXAMETHASONE SOD PHOSPHATE 10 MG/ML 1 ML VIAL IVP SCH (08:19)
[2021-03-24] MEDS: ASCORBIC ACID 500 MG TAB PO SCH ×2 (08:19→21:34)
[2021-03-24] MEDS: METOPROLOL TARTRATE 25 MG TAB PO SCH (08:19)
[2021-03-24] MEDS: AMIODARONE 100 MG TAB PO SCH (08:19)
[2021-03-24] MEDS: APIXABAN 2.5 MG TABLET PO SCH ×2 (08:19→21:34)
[2021-03-24] MEDS: CHOLECALCIFEROL 25 MCG (1000 IU) TABLET PO SCH (08:19)
[2021-03-24] MEDS: FUROSEMIDE 10 MG/ML 4 ML VIAL IV SCH ×2 (08:19→21:34)
[2021-03-24] MEDS: ZINC SULFATE 220 MG CAP PO SCH (08:19)
[2021-03-24] MEDS ORDERED: METOPROLOL TARTRATE 25 MG TAB PO STA (10:01)
[2021-03-24] MEDS ORDERED: LORazepam 0.5 MG TAB PO PRN (12:01)
--- NOTE | 2021-03-24 12:54 | P.PN ---
Subjective Progress Note Date: 03/24/21 HISTORY OF PRESENT ILLNESS This is an 85-year-old female patient of Dr. Wills and Dr. Pagan with past medical history of chronic persistent atrial fibrillation, chronic systolic hear t failure, pulmonary hypertension, COPD with chronic hypoxic respiratory failure on home O2 at 3 L as needed, hypertension, hyperlipidemia, chronic kidney disease stage III, generalized osteoarthritis Patient gives history that starting 4 weeks ago she developed a sore throat and the following week he was significantly worse. She called the office for appointment but was unable to come into the building due to need for Covid testing which she completed and came back negative. She was complaining by the time of fever and earache and was placed on a steroid. She subsequently developed a rash and presented to the emergency center on March 19 for possible ALLERGIC reaction and was subsequently placed on a Z-Narciso. Covid testing at that time was also negative. Regarding anticoagulation. She states she was quite anxious reading the side effects of eliquis and decided to stop taking it and instead was taking aspirin 81 mg. Patient has been fully vaccinated but has not received a booster which she was due for. She presented again on March 22 to the emergency center due to cough shortness of breath and fevers for the past couple days and gradually worsening. She denied having any abdominal pain, nausea or vomiting. EKG was atrial fibrillation with RVR. Heart rate was running in the 120s and 130s and patient was started on Cardizem drip, heparin drip and IV Lasix 40 mg twice daily. CBC was unremarkable except for a platelet count of 144. Sodium 132, potassium 4.7, chloride 92, CO2 29, BUN 34 creatinine 1.2. Blood sugar 123. INR 1.1. Total bilirubin 1.4, AST 235, ALT 126. Alkaline phosphatase 55. Troponin 0.067. Lactic acid 1.5. Coronal virus PCR detected. ProBNP 9570. Chest x-ray reveals pulmonary interstitial edema could be acute heart failure. Acute interstitial pneumonia also possible. Echocardiogram reveals EF of 30-35%, mild aortic regurgitation, moderate mitral regurgitation, severe tricuspid regurgitation, severe pulmonary hypertension. Patient has been seen by cardiology as well as by pulmonary medicine. 03/24: Patient's heart rate is still running 100-130 bpm and A. fib. Cardiology saw the patient and discontinued Cardizem drip, increased amiodarone and Lopressor. Patient is very upset this morning regarding Ativan dosing for bedtime which she states she takes 1.5 tablets at bedtime and a half a tablet in the morning. We will make medication changes. Discussed discharge planning and PT has recommended home with home care. real estate branch manager has arranged for [facility]. Patient has also been seen by pulmonary medicine. Anticipate discharge home tomorrow if heart rate is controlled. She is continued on IV Lasix 40 mg twice daily. REVIEW OF SYSTEMS Constitutional: No fever, no chills, no night sweats. No weight change. No weakness, fatigue or lethargy. No daytime sleepiness. EENT: No headache. No blurred vision or double vision, no loss of vision. No loss of Hearing, no ringing in the ears, no dizziness. No nasal drainage or congestion. No epistaxis. No sore throat. Lungs: Reports shortness of breath, reports cough, no sputum production. No wheezing. Cardiovascular: No chest pain, no lower extremity edema. No palpitations. No paroxysmal nocturnal dyspnea. No orthopnea. No lightheadedness or dizziness. No syncopal episodes. Abdominal: No abdominal pain. No nausea, vomiting. No diarrhea. No constipation. No bloody or tarry stools. No loss of appetite. Genitourinary: No dysuria, increased frequency, urgency. No urinary retention. Musculoskeletal: No myalgias. No muscle weakness, no gait dysfunction, no frequent falls. No back pain. No neck pain. Integumentary: No wounds, no lesions. No rash or pruritus. No unusual bruising. No change in hair or nails. Neurologic: No aphasia. No facial droop. No change in mentation. No head injury. No headache. No paralysis. No paresthesia. Psychiatric: No depression. Reports anxiety. No mood swings. Reports insomnia Endocrine: No abnormal blood sugars. No weight change. No excessive sweating or thirst. No cold intolerance. PHYSICAL EXAMINATION Gen: This is a thin 85-year-old female. She is resting in recliner appears to be comfortable and in no acute distress. HEENT: Head is atraumatic, normocephalic. Pupils equal, round. Sclerae is anicteric. NECK: Supple. No JVD. No lymphadenopathy. No thyromegaly. LUNGS: Clear to auscultation. No wheezes or rhonchi. No intercostal retrac tions. HEART: Irregularly irregular rate and rhythm. No murmur. ABDOMEN: Soft. Bowel sounds are present. No masses. No tenderness. EXTREMITIES: No pedal edema. No calf tenderness. NEUROLOGICAL: Patient is awake, alert and oriented x3. Cranial nerves 2 through 12 are grossly intact. ASSESSMENT AND PLAN 1. Acute on chronic hypoxic respiratory failure secondary to a combination of acute exacerbation of systolic heart failure, possible Covid 19 pneumonia, acute exacerbation of COPD, A. fib with RVR. Continue oxygen therapy 2. Acute exacerbation of systolic heart failure. Continue Lasix 40 mg IV every 12 hours, I&O and daily weights, monitor renal function and electrolytes. Cardiology consult appreciated. 3. Possible Covid 19 pneumonia. Pulmonary consult appreciated. Patient's been started on Ventolin inhaler 4 times daily, vitamin supplements, Symbicort 2 puffs twice daily, dexamethasone 6 mg IV push daily, Spiriva. 4. Acute exacerbation of COPD. Continue Symbicort, Spiriva, albuterol, dexamethasone. 5. Chronic persistent atrial fibrillation presenting with RVR. IV heparin has been transitioned eliquis 2.5 mg twice daily, Cardizem drip is continued, continue amiodarone increased to 200 mg twice daily and continue Lopressor increased to 50 mg 3 times daily. 6. Transaminitis possibly related to Covid 19. Continue to monitor. 7. Hypertension. Continue Lopressor. 8. Hyperlipidemia. Continue Lipitor 20 mg at bedtime. 9. Chronic kidney disease stage III. Monitor renal function, avoid nephrotoxic agents. 10. Valvular heart disease with mild aortic regurgitation, moderate mitral regurgitation, severe tricuspid regurgitation. 11. Severe pulmonary hypertension. 12. GI prophylaxis. Protonix. 13. DVT prophylaxis. Eliquis. DISCHARGE PLAN Home. Impression and plan of care have been directed as dictated by the signing physician. Margaret Pulliam nurse practitioner acting as scribe for signing physician. Objective - Vital Signs Vital signs: Vital Signs Temp 98.1 F 03/24/21 04:00 Pulse 110 H 03/24/21 04:00 Resp 18 03/24/21 04:00 BP 98/74 03/24/21 04:00 Pulse Ox 97 03/24/21 04:00 Intake & Output 03/23/21 03/24/21 03/24/21 18:59 06:59 18:59 Intake Total 539.689 125 480 Output Total 300 300 Balance 239.689 125 180 Weight 61.235 kg Intake: Intake, IV Titration 179.689 125 Amount Diltiazem 125 mg In 88.084 125 Sodium Chloride 0.9% 100 ml @ 10 MG/HR 10 mls/hr IV .[id number] [facility] Rx#: [id number] Heparin Sod,Pork in 0.45% 91.605 NaCl 25,000 unit In 0.45 % NaCl 1 250ml.bag @ 12 UNITS/KG/HR 7.348 mls/hr IV .Q24H [facility] Rx#: [id number] Oral 360 480 Output: Urine 300 300 Other: Voiding Method Toilet Diaper # Voids 2 1 - Labs CBC & Chem 7: 03/22/21 19:08 03/22/21 19:08 Labs: Microbiology - Last 24 Hours (Table) 03/23/21 20:13 Urine Culture - Preliminary Urine,Clean Catch 03/22/21 19:08 Blood Culture Gram Stain - Preliminary Blood Blood Culture - Preliminary Coagulase Negative Staph 03/22/21 19:08 Blood Culture Gram Stain - Preliminary Blood 03/22/21 19:08 Blood Culture - Final Blood 03/22/21 19:08 Blood Culture - Final Blood
--- NOTE | 2021-03-24 13:45 | P.PN ---
Subjective Progress Note Date: 03/24/21 CHIEF COMPLAINT: A. fib with RVR HISTORY OF PRESENT ILLNESS: This is a 85-year-old female with a past medical history significant for chronic persistent atrial fibrillation, congestive heart failure, hypertension, and hyperlipidemia. Patient follows in the office with Dr. Pagan. We have been asked to see the patient in consultation for afib with RVR. She presented to the hospital secondary to SOB. Patient was found to be positive for Covid. Patient is currently in atrial fibrillation with heart rates in the 130s. She is on a Cardizem drip at 5mg/hr and a Heparin drip. She is also receiving IV lasix Q12 hours. She is on 3L NC. Blood pressure 60/62. DIAGNOSTICS: EKG reveals atrial fibrillation with RVR Chest xray pulmonary interstitial edema which is new compared to old exam and could be acute heart failure. Acute interstitial pneumonia also possible. Laboratory data: WBC 4.2. Hemoglobin 12.2. Platelet count 144. Sodium 132. Potassium 4.7. BUN 34. Creatinine 1.2. ProBNP 9570. Troponin 0.067. Current home cardiac medications include Zocor 40 mg at night, metoprolol titrate 25 mg twice a day, Lasix 40 mg twice a day, amiodarone 50 mg daily Echocardiogram completed in January 2020 to cardiology office revealed ejection fraction 55%, mild to moderate aortic regurgitation, moderate mitral regurgitation, severe tricuspid regurgitation She underwent cardiac catheterization in 2017 revealing minimal coronary artery disease 03/24/2021 Patient remains on the cardiac stepdown unit. Telemetry reveals atrial fibrillation with a heart rate around 120. She remains on IV Cardizem. No complaints of chest pain or pressure. Echocardiogram completed revealing ejection fraction 30-35%, mild aortic regurgitation, moderate mitral regurgitation, severe tricuspid regurgitation, and severe pulmonary hypertension PHYSICAL EXAM: Thorough physical exam not completed secondary to limited evaluation/examination due to Covid19 ASSESSMENT: Covid 19 Acute hypoxic respiratory failure Abnormal troponin, not suggestive of ACS Acute on chronic systolic congestive heart failure, EF 55% in February 2020, now 30-35% Chronic persistent atrial fibrillation with RVR Hypertension Hyperlipidemia Valvular heart disease COPD PLAN: Discontinue IV cardizem Increase amio to 200mg BID Increase metoprolol to 50mg TID Continue telemetry monitoring Further recommendations pending patient course Nurse practitioner note has been reviewed by physician. Signing provider agrees with the documented findings, assessment, and plan of care. Objective - Vital Signs Vital signs: Vital Signs Temp 98.6 F 03/24/21 08:00 Pulse 104 H 03/24/21 12:00 Resp 18 03/24/21 12:00 BP 130/75 03/24/21 12:00 Pulse Ox 95 03/24/21 12:00 Intake & Output 03/23/21 03/24/21 03/24/21 18:59 06:59 18:59 Intake Total 539.689 125 480 Output Total 300 300 Balance 239.689 125 180 Weight 61.235 kg Intake: Intake, IV Titration 179.689 125 Amount Diltiazem 125 mg In 88.084 125 Sodium Chloride 0.9% 100 ml @ 10 MG/HR 10 mls/hr IV .[id number] JORDY Rx#: [id number] Heparin Sod,Pork in 0.45% 91.605 NaCl 25,000 unit In 0.45 % NaCl 1 250ml.bag @ 12 UNITS/KG/HR 7.348 mls/hr IV .Q24H JORDY Rx#: [id number] Oral 360 480 Output: Urine 300 300 Other: Voiding Method Toilet Diaper # Voids 2 1 - Labs CBC & Chem 7: 03/22/21 19:08 03/22/21 19:08 Labs: Microbiology - Last 24 Hours (Table) 03/23/21 20:13 Urine Culture - Preliminary Urine,Clean Catch 03/22/21 19:08 Blood Culture Gram Stain - Preliminary Blood Blood Culture - Preliminary Coagulase Negative Staph 03/22/21 19:08 Blood Culture Gram Stain - Preliminary Blood 03/22/21 19:08 Blood Culture - Final Blood 03/22/21 19:08 Blood Culture - Final Blood
--- NOTE | 2021-03-24 14:46 | P.PN ---
Subjective Progress Note Date: 03/24/21 Principal diagnosis: Respiratory failure. This is a 85-year-old white female patient of Dr. Wills, with past medical history of moderately severe COPD, Gold stage III disease at baseline on home oxygen at 3 L/m on as-needed basis, chronic systolic CHF with EF of 20-25%, paroxysmal atrial fibrillation used to be on Eliquis, which is not on her home med list now, anxiety, pulmonary hypertension related to chronic lung disease and chronic CHF, chronic kidney disease stage III, glaucoma and osteoarthritis. Patient follows with Dr. Crouch in the pulmonary clinic, she is maintained on Advair 250/50 Diskus and Spiriva on a daily basis. She came into the emergency department on 03/22/2021 at 1850 1 in the afternoon per EMS for evaluation of cough, shortness of breath and fevers. Patient states over the last couple of days or shortness of breath has been progressively worse, she has a productive cough, she isn't vaccinated for COVID 19, denies any obvious exposure. She is complaining about constitutional symptoms including fevers, no nausea or vomiting, no abdominal pain, she has some swelling in her bilateral lower extremities, denied any chest pain. Denies any runny nose or sore throat. She was noted to be in A. fib with RVR and was started on Cardizem drip and heparin infusion, her chest x-ray showing pulmonary interstitial edema. She also tested positive for COVID 19. The rest of the blood work showed normal white count of 4.2, hemoglobin 12.2, lymphocyte count of 0.5, sodium is 132, potassium is 4.7, chloride is 92, CO2 is 29, BUN is 34, creatinine is 1.2, plasma lactic acid is 1.5, AST was 235, ALT was 126, alk phos was 55, troponin was 0.067, proBNP was elevated at 9570. She did have a fever of 101.2F. Currently remains in A. fib with RVR with a rate of 120 to 1:30 BPM, continues on Cardizem infusion and 5 mg, she is currently on 3 L of oxygen pulse ox is 94%, her blood pressures are on the lower side with a BP of 89/71. Echocardiogram has been ordered and pending, patient was started on IV Lasix 40 mg twice daily. We started the on Decadron 6 mg daily, she continues on heparin infusion, cardiology consultation is pending, she appears to be in no acute distress. Progress note dated 03/24/2021. 85-year-old female, who was seen yesterday in consultation for chronic hypoxemic respiratory failure, secondary to CHF, COPD exacerbation, and coronavirus associated pneumonia. The patient currently is seen today again in room 380. She is on 3 L nasal cannula. She is getting saline at 20 mL an hour. She's got Cardizem running at 10 mg an hour. The patient's only complaint is that of shortness of breath, dry cough, and sore throat. She denies any chest pain or chest discomfort. No new laboratory data today. No additional chest x-rays today. Objective - Vital Signs Vital signs: Vital Signs Temp 98.6 F 03/24/21 08:00 Pulse 104 H 03/24/21 12:00 Resp 18 03/24/21 12:00 BP 130/75 03/24/21 12:00 Pulse Ox 95 03/24/21 12:00 Intake & Output 03/23/21 03/24/21 03/24/21 18:59 06:59 18:59 Intake Total 539.689 125 480 Output Total 300 300 Balance 239.689 125 180 Weight 61.235 kg Intake: Intake, IV Titration 179.689 125 Amount Diltiazem 125 mg In 88.084 125 Sodium Chloride 0.9% 100 ml @ 10 MG/HR 10 mls/hr IV .[id number] JORDY Rx#: [id number] Heparin Sod,Pork in 0.45% 91.605 NaCl 25,000 unit In 0.45 % NaCl 1 250ml.bag @ 12 UNITS/KG/HR 7.348 mls/hr IV .Q24H JORDY Rx#: [id number] Oral 360 480 Output: Urine 300 300 Other: Voiding Method Toilet Diaper # Voids 2 1 - Exam No acute distress, oriented 3. Currently on 3 L nasal cannula with saturations of 95%. HEENT examination is grossly unremarkable. Neck supple. Full range of motion. No adenopathy thyromegaly or neck vein distention. Cardiovascular examination reveals an irregular rhythm and rate. Heart rate 104 bpm. S1-S2 normal. No S3 or S4. No discernible murmur noted. Lungs reveal scattered bilateral rhonchi. There is basilar crackles. A few scattered high-pitched wheezes are also noted. Breath sounds are equal bilaterally. Abdomen soft bowel sounds are heard. No masses or tenderness. Extremities are intact. No cyanosis or clubbing. Mild, 1+, edema is noted in the lower extremities. Skin is without rash or lesion. Neurologic examination is brief but nonfocal. - Labs CBC & Chem 7: 03/22/21 19:08 03/22/21 19:08 Labs: Microbiology - Last 24 Hours (Table) 03/23/21 20:13 Urine Culture - Preliminary Urine,Clean Catch 03/22/21 19:08 Blood Culture Gram Stain - Preliminary Blood Blood Culture - Preliminary Coagulase Negative Staph 03/22/21 19:08 Blood Culture Gram Stain - Preliminary Blood 03/22/21 19:08 Blood Culture - Final Blood 03/22/21 19:08 Blood Culture - Final Blood Assessment and Plan Assessment: Acute on chronic hypoxemic respiratory failure, secondary to systolic CHF, coronavirus associated pneumonia COPD exacerbation, and atrial fibrillation with RVR. Rule out non-ST segment elevation myocardial infarction. Cardiomyopathy, with ejection fraction of 20-25%. History of pulmonary hypertension. History of paroxysmal atrial fibrillation. History of stage III COPD. History of hypertension. Prior history of myocardial infarction. Osteoarthritis. Stage III chronic kidney disease. History of GI bleed. Chronic anxiety. [id number] history of tobacco use. Plan: Plan dated 03/24/2021. From the pulmonary standpoint, patient is doing well. The patient appears to be relatively stable. We will continue to follow and make recommendations where appropriate. The patient remains on 3 L nasal cannula. The patient's getting saline at 20 mL an hour, and a Cardizem drip at 10 mg an hour. Prognosis is guarded. Medications, labs, and x-rays all reviewed. Prognosis is certainly guarded. Time with Patient: Less than 30
[2021-03-24] MEDS: METOPROLOL TARTRATE 50 MG TAB PO SCH ×2 (17:12→21:34)
[2021-03-24] MEDS: LEVOFLOXACIN 250MG-D5W PMX 250 MG in DEXTROSE/WATER 1 50ML.BAG IVPB SCH (17:12)
[2021-03-24] MEDS: LORazepam 1 MG TAB PO SCH (21:33)
[2021-03-24] MEDS: SENNOSIDES 8.6 MG TAB PO SCH (21:34)
[2021-03-24] MEDS: ATORVASTATIN 20 MG TAB PO SCH (21:34)
[2021-03-24] MEDS: AMIODARONE 200 MG TAB PO SCH (21:34)
[2021-03-24] MEDS: polyethylene glycoL 3350 17 GM POWD.PACK PO SCH (21:38)
[2021-03-25] MEDS: TIOTROPIUM 2.5 MCG INHALER INHALATION SCH (07:28)
[2021-03-25] MEDS: SYMBICORT 160-4.5 MCG INHALER INHALATION SCH ×2 (07:28→21:02)
[2021-03-25] MEDS: ALBUTEROL HFA INHALER INHALATION SCH ×4 (07:28→21:02)
[2021-03-25] MEDS: ASCORBIC ACID 500 MG TAB PO SCH ×2 (08:18→21:53)
[2021-03-25] MEDS: CHOLECALCIFEROL 25 MCG (1000 IU) TABLET PO SCH (08:18)
[2021-03-25] MEDS: APIXABAN 2.5 MG TABLET PO SCH ×2 (08:18→21:54)
[2021-03-25] MEDS: DEXAMETHASONE SOD PHOSPHATE 10 MG/ML 1 ML VIAL IVP SCH (08:18)
[2021-03-25] MEDS: AMIODARONE 200 MG TAB PO SCH ×2 (08:18→21:53)
[2021-03-25] MEDS: ZINC SULFATE 220 MG CAP PO SCH (08:18)
[2021-03-25] MEDS: FUROSEMIDE 10 MG/ML 4 ML VIAL IV SCH ×2 (08:18→21:54)
[2021-03-25] MEDS: METOPROLOL TARTRATE 50 MG TAB PO SCH (08:18)
[2021-03-25] MEDS: SENNOSIDES 8.6 MG TAB PO SCH ×2 (08:28→21:54)
[2021-03-25] MEDS ORDERED: METOPROLOL TARTRATE 25 MG TAB PO STA (10:37)
--- NOTE | 2021-03-25 13:17 | P.PN ---
Subjective Progress Note Date: 03/25/21 CHIEF COMPLAINT: A. fib with RVR HISTORY OF PRESENT ILLNESS: This is a 85-year-old female with a past medical history significant for chronic persistent atrial fibrillation, congestive heart failure, hypertension, and hyperlipidemia. Patient follows in the office with Dr. Pagan. We have been asked to see the patient in consultation for afib with RVR. She presented to the hospital secondary to SOB. Patient was found to be positive for Covid. Patient is currently in atrial fibrillation with heart rates in the 130s. She is on a Cardizem drip at 5mg/hr and a Heparin drip. She is also receiving IV lasix Q12 hours. She is on 3L NC. Blood pressure 60/62. DIAGNOSTICS: EKG reveals atrial fibrillation with RVR Chest xray pulmonary interstitial edema which is new compared to old exam and could be acute heart failure. Acute interstitial pneumonia also possible. Laboratory data: WBC 4.2. Hemoglobin 12.2. Platelet count 144. Sodium 132. Potassium 4.7. BUN 34. Creatinine 1.2. ProBNP 9570. Troponin 0.067. Current home cardiac medications include Zocor 40 mg at night, metoprolol titrate 25 mg twice a day, Lasix 40 mg twice a day, amiodarone 50 mg daily Echocardiogram completed in January 2020 to cardiology office revealed ejection fraction 55%, mild to moderate aortic regurgitation, moderate mitral regurgitation, severe tricuspid regurgitation She underwent cardiac catheterization in 2017 revealing minimal coronary artery disease 03/24/2021 Patient remains on the cardiac stepdown unit. Telemetry reveals atrial fibrillation with a heart rate around 120. She remains on IV Cardizem. No complaints of chest pain or pressure. Echocardiogram completed revealing ejection fraction 30-35%, mild aortic regurgitation, moderate mitral regurgitation, severe tricuspid regurgitation, and severe pulmonary hypertension 03/25/2021 Patient remains hospitalized in the cardiac stepdown unit. Telemetry reveals atrial fibrillation with heart rates ranging between 100-130. IV Cardizem was discontinued yesterday. Patients blood pressure remains stable. PHYSICAL EXAM: Thorough physical exam not completed secondary to limited evaluation/examination due to Covid19 ASSESSMENT: Covid 19 Acute hypoxic respiratory failure Abnormal troponin, not suggestive of ACS Acute on chronic systolic congestive heart failure, EF 55% in February 2020, now 30-35% Chronic persistent atrial fibrillation with RVR Hypertension Hyperlipidemia Valvular heart disease COPD PLAN: Increase metoprolol to 75 mg 3 times a day. Given additional dose of 25 mg now Continue telemetry monitoring Continue IV Lasix Daily weights Accurate I&O Monitor kidney function. Check BMP in the AM Further recommendations pending patient course Nurse practitioner note has been reviewed by physician. Signing provider agrees with the documented findings, assessment, and plan of care. Objective - Vital Signs Vital signs: Vital Signs Temp 98 F 03/25/21 11:37 Pulse 120 H 03/25/21 11:37 Resp 19 03/25/21 11:37 BP 125/76 03/25/21 11:37 Pulse Ox 95 03/25/21 11:37 Intake & Output 03/24/21 03/25/21 03/25/21 18:59 06:59 18:59 Intake Total 720 0 Output Total 300 Balance 420 0 Intake: Oral 720 0 Output: Urine 300 Other: Voiding Method Toilet Diaper # Voids 1 1 2 # Bowel Movements 1 - Labs CBC & Chem 7: 03/22/21 19:08 03/22/21 19:08 Labs: Microbiology - Last 24 Hours (Table) 03/22/21 19:08 Blood Culture Gram Stain - Preliminary Blood Blood Culture - Preliminary Coagulase Negative Staph 03/23/21 17:51 Blood Culture - Preliminary Blood No Growth after 24 hours
--- NOTE | 2021-03-25 14:22 | P.PN ---
Subjective Progress Note Date: 03/25/21 HISTORY OF PRESENT ILLNESS This is an 85-year-old female patient of Dr. Wills and Dr. Pagan with past medical history of chronic persistent atrial fibrillation, chronic systolic hear t failure, pulmonary hypertension, COPD with chronic hypoxic respiratory failure on home O2 at 3 L as needed, hypertension, hyperlipidemia, chronic kidney disease stage III, generalized osteoarthritis Patient gives history that starting 4 weeks ago she developed a sore throat and the following week he was significantly worse. She called the office for appointment but was unable to come into the building due to need for Covid testing which she completed and came back negative. She was complaining by the time of fever and earache and was placed on a steroid. She subsequently developed a rash and presented to the emergency center on March 19 for possible ALLERGIC reaction and was subsequently placed on a Z-Narciso. Covid testing at that time was also negative. Regarding anticoagulation. She states she was quite anxious reading the side effects of eliquis and decided to stop taking it and instead was taking aspirin 81 mg. Patient has been fully vaccinated but has not received a booster which she was due for. She presented again on March 22 to the emergency center due to cough shortness of breath and fevers for the past couple days and gradually worsening. She denied having any abdominal pain, nausea or vomiting. EKG was atrial fibrillation with RVR. Heart rate was running in the 120s and 130s and patient was started on Cardizem drip, heparin drip and IV Lasix 40 mg twice daily. CBC was unremarkable except for a platelet count of 144. Sodium 132, potassium 4.7, chloride 92, CO2 29, BUN 34 creatinine 1.2. Blood sugar 123. INR 1.1. Total bilirubin 1.4, AST 235, ALT 126. Alkaline phosphatase 55. Troponin 0.067. Lactic acid 1.5. Coronal virus PCR detected. ProBNP 9570. Chest x-ray reveals pulmonary interstitial edema could be acute heart failure. Acute interstitial pneumonia also possible. Echocardiogram reveals EF of 30-35%, mild aortic regurgitation, moderate mitral regurgitation, severe tricuspid regurgitation, severe pulmonary hypertension. Patient has been seen by cardiology as well as by pulmonary medicine. 03/24: Patient's heart rate is still running 100-130 bpm and A. fib. Cardiology saw the patient and discontinued Cardizem drip, increased amiodarone and Lopressor. Patient is very upset this morning regarding Ativan dosing for bedtime which she states she takes 1.5 tablets at bedtime and a half a tablet in the morning. We will make medication changes. Discussed discharge planning and PT has recommended home with home care. manager assisted living has arranged for [facility]. Patient has also been seen by pulmonary medicine. Anticipate discharge home tomorrow if heart rate is controlled. She is continued on IV Lasix 40 mg twice daily. 03/25: She remains in atrial fibrillation in the 120s and 130s. Cardizem drip was discontinued yesterday. Cardiology has increased Lopressor to 75 mg twice daily and continued amiodarone 200 mg twice daily. Patient has been started on eliquis. She has been afebrile, blood pressure 125/76, pulse ox 95% on 3 L nasal cannula. Patient is also followed by pulmonary medicine as well. Patient is continued on IV Lasix 40 mg every 12 hours. REVIEW OF SYSTEMS Constitutional: No fever, no chills, no night sweats. No weight change. No weakness, fatigue or lethargy. No daytime sleepiness. EENT: No headache. No blurred vision or double vision, no loss of vision. No loss of Hearing, no ringing in the ears, no dizziness. No nasal drainage or congestion. No epistaxis. No sore throat. Lungs: Reports shortness of breath, reports cough, no sputum production. No wheezing. Cardiovascular: No chest pain, no lower extremity edema. No palpitations. No paroxysmal nocturnal dyspnea. No orthopnea. No lightheadedness or dizziness. No syncopal episodes. Abdominal: No abdominal pain. No nausea, vomiting. No diarrhea. No constipation. No bloody or tarry stools. No loss of appetite. Genitourinary: No dysuria, increased frequency, urgency. No urinary retention. Musculoskeletal: No myalgias. No muscle weakness, no gait dysfunction, no frequent falls. No back pain. No neck pain. Integumentary: No wounds, no lesions. No rash or pruritus. Neurologic: No aphasia. No facial droop. No change in mentation. No head injury. No headache. No paralysis. No paresthesia. Psychiatric: No depression. Reports anxiety. No mood swings. Reports insomnia Endocrine: No abnormal blood sugars. No weight change. No excessive sweating or thirst. No cold intolerance. PHYSICAL EXAMINATION Gen: This is a thin 85-year-old female. She is resting in recliner appears to be comfortable and in no acute distress. HEENT: Head is atraumatic, normocephalic. Pupils equal, round. Sclerae is anicteric. NECK: Supple. No JVD. No lymphadenopathy. No thyromegaly. LUNGS: Few scattered rhonchi. No intercostal retractions. HEART: Irregularly irregular rate and rhythm. No murmur. ABDOMEN: Soft. Bowel sounds are present. No masses. No tenderness. EXTREMITIES: No pedal edema. No calf tenderness. NEUROLOGICAL: Patient is awake, alert and oriented x3. Cranial nerves 2 through 12 are grossly intact. ASSESSMENT AND PLAN 1. Acute on chronic hypoxic respiratory failure secondary to a combination of acute exacerbation of systolic heart failure, possible Covid 19 pneumonia, acute exacerbation of COPD, A. fib with RVR. Continue oxygen therapy 2. Acute exacerbation of systolic heart failure. Continue Lasix 40 mg IV every 12 hours, I&O and daily weights, monitor renal function and electrolytes. Cardiology consult appreciated. 3. Possible Covid 19 pneumonia. Pulmonary consult appreciated. Patient's been started on Ventolin inhaler 4 times daily, vitamin supplements, Symbicort 2 puffs twice daily, dexamethasone 6 mg IV push daily, Spiriva. 4. Acute exacerbation of COPD. Continue Symbicort, Spiriva, albuterol, dexamethasone. 5. Chronic persistent atrial fibrillation presenting with RVR. cONTINUE eliquis 2.5 mg twice daily, Cardizem drip is continued, continue amiodarone 200 mg twice daily and continue Lopressor increased to 75 mg 3 times daily. 6. Transaminitis possibly related to Covid 19. Continue to monitor. 7. Hypertension. Continue Lopressor. 8. Hyperlipidemia. Continue Lipitor 20 mg at bedtime. 9. Chronic kidney disease stage III. Monitor renal function, avoid nephrotoxic agents. 10. Valvular heart disease with mild aortic regurgitation, moderate mitral regurgitation, severe tricuspid regurgitation. 11. Severe pulmonary hypertension. 12. GI prophylaxis. Protonix. 13. DVT prophylaxis. Eliquis. DISCHARGE PLAN Home possibly on Sunday. Impression and plan of care have been directed as dictated by the signing physician. Margaret Pulliam nurse practitioner acting as scribe for signing physician. Objective - Vital Signs Vital signs: Vital Signs Temp 98 F 03/25/21 11:37 Pulse 120 H 01/07/22 11:37 Resp 19 03/25/21 11:37 BP 125/76 03/25/21 11:37 Pulse Ox 95 03/25/21 11:37 Intake & Output 03/24/21 03/25/21 03/25/21 18:59 06:59 18:59 Intake Total 720 0 Output Total 300 Balance 420 0 Intake: Oral 720 0 Output: Urine 300 Other: Voiding Method Toilet Diaper # Voids 1 1 2 # Bowel Movements 1 - Labs CBC & Chem 7: 03/22/21 19:08 03/22/21 19:08 Labs: Microbiology - Last 24 Hours (Table) 03/22/21 19:08 Blood Culture Gram Stain - Preliminary Blood Blood Culture - Preliminary Coagulase Negative Staph 03/23/21 17:51 Blood Culture - Preliminary Blood No Growth after 24 hours
--- NOTE | 2021-03-25 14:47 | P.PN ---
Subjective Progress Note Date: 03/25/21 Principal diagnosis: Respiratory failure. This is a 85-year-old white female patient of Dr. Wills, with past medical history of moderately severe COPD, Gold stage III disease at baseline on home oxygen at 3 L/m on as-needed basis, chronic systolic CHF with EF of 20-25%, paroxysmal atrial fibrillation used to be on Eliquis, which is not on her home med list now, anxiety, pulmonary hypertension related to chronic lung disease and chronic CHF, chronic kidney disease stage III, glaucoma and osteoarthritis. Patient follows with Dr. Crouch in the pulmonary clinic, she is maintained on Advair 250/50 Diskus and Spiriva on a daily basis. She came into the emergency department on 03/22/2021 at 1850 1 in the afternoon per EMS for evaluation of cough, shortness of breath and fevers. Patient states over the last couple of days or shortness of breath has been progressively worse, she has a productive cough, she isn't vaccinated for COVID 19, denies any obvious exposure. She is complaining about constitutional symptoms including fevers, no nausea or vomiting, no abdominal pain, she has some swelling in her bilateral lower extremities, denied any chest pain. Denies any runny nose or sore throat. She was noted to be in A. fib with RVR and was started on Cardizem drip and heparin infusion, her chest x-ray showing pulmonary interstitial edema. She also tested positive for COVID 19. The rest of the blood work showed normal white count of 4.2, hemoglobin 12.2, lymphocyte count of 0.5, sodium is 132, potassium is 4.7, chloride is 92, CO2 is 29, BUN is 34, creatinine is 1.2, plasma lactic acid is 1.5, AST was 235, ALT was 126, alk phos was 55, troponin was 0.067, proBNP was elevated at 9570. She did have a fever of 101.2F. Currently remains in A. fib with RVR with a rate of 120 to 1:30 BPM, continues on Cardizem infusion and 5 mg, she is currently on 3 L of oxygen pulse ox is 94%, her blood pressures are on the lower side with a BP of 89/71. Echocardiogram has been ordered and pending, patient was started on IV Lasix 40 mg twice daily. We started the on Decadron 6 mg daily, she continues on heparin infusion, cardiology consultation is pending, she appears to be in no acute distress. Progress note dated 03/24/2021. 85-year-old female, who was seen yesterday in consultation for chronic hypoxemic respiratory failure, secondary to CHF, COPD exacerbation, and coronavirus associated pneumonia. The patient currently is seen today again in room 380. She is on 3 L nasal cannula. She is getting saline at 20 mL an hour. She's got Cardizem running at 10 mg an hour. The patient's only complaint is that of shortness of breath, dry cough, and sore throat. She denies any chest pain or chest discomfort. No new laboratory data today. No additional chest x-rays today. Progress note dated 03/25/2021. 85-year-old female, seen in consultation 2 days ago. She is seen today in room 380. The patient is currently on 3 L nasal cannula. She's not receiving any IV fluids. The patient was seen for chronic hypoxemic respiratory failure, secondary to CHF, COPD, and coronavirus pneumonia. The patient appears to be relatively stable. She is speaking in full sentences. There is no evidence of use of accessory muscles. No new labs today. No new chest x-ray today. Objective - Vital Signs Vital signs: Vital Signs Temp 98 F 03/25/21 11:37 Pulse 120 H 03/25/21 11:37 Resp 19 03/25/21 11:37 BP 125/76 03/25/21 11:37 Pulse Ox 95 03/25/21 11:37 Intake & Output 03/24/21 03/25/21 03/25/21 18:59 06:59 18:59 Intake Total 720 540 Output Total 300 Balance 420 540 Intake: Oral 720 540 Output: Urine 300 Other: Voiding Method Toilet Diaper # Voids 1 1 2 # Bowel Movements 1 - Exam No acute distress, oriented 3. Currently on 3 L nasal cannula with saturations of 95%. HEENT examination is grossly unremarkable. Neck supple. Full range of motion. No adenopathy thyromegaly or neck vein distention. Cardiovascular examination reveals an irregular rhythm and rate. Heart rate 110 bpm. S1-S2 normal. No S3 or S4. No discernible murmur noted. Lungs reveal scattered bilateral rhonchi. There is basilar crackles. A few scattered high-pitched wheezes are also noted. Breath sounds are equal bilaterally. Abdomen soft bowel sounds are heard. No masses or tenderness. Extremities are intact. No cyanosis or clubbing. Mild, 1+, edema is noted in the lower extremities. Skin is without rash or lesion. Neurologic examination is brief but nonfocal. - Labs CBC & Chem 7: 03/22/21 19:08 03/22/21 19:08 Labs: Microbiology - Last 24 Hours (Table) 03/22/21 19:08 Blood Culture Gram Stain - Preliminary Blood Blood Culture - Preliminary Coagulase Negative Staph 03/23/21 17:51 Blood Culture - Preliminary Blood No Growth after 24 hours Assessment and Plan Assessment: Acute on chronic hypoxemic respiratory failure, secondary to systolic CHF, coronavirus associated pneumonia COPD exacerbation, and atrial fibrillation with RVR. Rule out non-ST segment elevation myocardial infarction. Cardiomyopathy, with ejection fraction of 20-25%. History of pulmonary hypertension. History of paroxysmal atrial fibrillation. History of stage III COPD. History of hypertension. Prior history of myocardial infarction. Osteoarthritis. Stage III chronic kidney disease. History of GI bleed. Chronic anxiety. [id number] history of tobacco use. Plan: Plan dated 03/24/2021. From the pulmonary standpoint, patient is doing well. The patient appears to be relatively stable. We will continue to follow and make recommendations where appropriate. The patient remains on 3 L nasal cannula. The patient's getting saline at 20 mL an hour, and a Cardizem drip at 10 mg an hour. Prognosis is guarded. Medications, labs, and x-rays all reviewed. Prognosis is certainly guarded. Plan dated 03/25/2021. The patient appears to be doing relatively well. She's not receiving any IV fluids. She is on 3 L nasal cannula. Saturations are in the mid 90s. The Cardizem drip has been discontinued. The patient is getting vitamin C, vitamin D3, and zinc. In addition, the patient is on Eliquis, and Decadron. The patient is stable from the pulmonary standpoint. She's lying flat in bed, without any respiratory distress or difficulty. Additional recommendations and suggestions are forthcoming. We will continue to follow make recommendations where appropriate. Prognosis is guarded. Time with Patient: Less than 30
[2021-03-25] MEDS: METOPROLOL TARTRATE 25 MG TAB PO SCH ×2 (16:18→21:54)
[2021-03-25] MEDS: ATORVASTATIN 20 MG TAB PO SCH (21:53)
[2021-03-25] MEDS: polyethylene glycoL 3350 17 GM POWD.PACK PO SCH (21:54)
[2021-03-25] MEDS: LORazepam 1 MG TAB PO SCH (21:55)
[2021-03-26 00:58] VITALS: TEMP 97.5
[2021-03-26 06:09] VITALS: RESP 18
[2021-03-26] MEDS: TIOTROPIUM 2.5 MCG INHALER INHALATION SCH (07:51)
[2021-03-26] MEDS: ALBUTEROL HFA INHALER INHALATION SCH ×2 (07:51→12:20)
[2021-03-26] MEDS: SYMBICORT 160-4.5 MCG INHALER INHALATION SCH (07:51)
[2021-03-26 09:15] LABS: HCT 34.9 % (34.0-46.0); HGB 11.1 gm/dL (11.4-16.0); Hypochromasia Slight; MCH 32.1 pg (25.0-35.0); MCHC 31.6 g/dL (31.0-37.0); MCV 101.4 fL (80.0-100.0); Macrocytosis Slight; Mean Platelet Volume 8.9; Platelet Count 162 k/uL (150-450); RBC 3.44 m/uL (3.80-5.40); RDW 13.1 % (11.5-15.5); WBC 5.9 k/uL (3.8-10.6)
[2021-03-26 09:26] LABS: Albumin 3.6 g/dL (3.5-5.0); Potassium 3.8 mmol/L (3.5-5.1); Total Bilirubin 0.7 mg/dL (0.2-1.3); Total Protein 5.9 g/dL (6.3-8.2)
[2021-03-26] MEDS: DEXAMETHASONE SOD PHOSPHATE 10 MG/ML 1 ML VIAL IVP SCH (09:28)
[2021-03-26] MEDS: FUROSEMIDE 10 MG/ML 4 ML VIAL IV SCH (09:30)
[2021-03-26] MEDS: APIXABAN 2.5 MG TABLET PO SCH (09:30)
[2021-03-26] MEDS: ASCORBIC ACID 500 MG TAB PO SCH (09:30)
[2021-03-26] MEDS: CHOLECALCIFEROL 25 MCG (1000 IU) TABLET PO SCH (09:30)
[2021-03-26] MEDS: AMIODARONE 200 MG TAB PO SCH (09:30)
[2021-03-26] MEDS: SENNOSIDES 8.6 MG TAB PO SCH ×2 (09:30→10:18)
[2021-03-26] MEDS: ZINC SULFATE 220 MG CAP PO SCH (09:30)
[2021-03-26] MEDS: METOPROLOL TARTRATE 25 MG TAB PO SCH (09:30)
--- NOTE | 2021-03-26 11:09 | P.DS ---
Providers Date of admission: 03/22/21 20:19 Attending physician: Otto Wills Consults: 03/22/21 20:19 Consult Physician Routine Consulting Provider: Antonio Torres Consult Reason/Comments: covid, hypoxia Do you want consulting provider notified?: Yes Consult Physician Routine Consulting Provider: Gwen Lazo Consult Reason/Comments: heart failure, afib rvr Do you want consulting provider notified?: Yes Primary care physician: [facility] Course: HISTORY OF PRESENT ILLNESS This is an 85-year-old female patient of Dr. Wills and Dr. Pagan with past medical history of chronic persistent atrial fibrillation, chronic systolic heart failure, pulmonary hypertension, COPD with chronic hypoxic respiratory failure on home O2 at 3 L as needed, hypertension, hyperlipidemia, chronic kidney disease stage III, generalized osteoarthritis Patient gives history that starting 4 weeks ago she developed a sore throat and the following week he was significantly worse. She called the office for guy ointment but was unable to come into the building due to need for Covid testing which she completed and came back negative. She was complaining by the time of fever and earache and was placed on a steroid. She subsequently developed a rash and presented to the emergency center on March 19 for possible ALLERGIC reaction and was subsequently placed on a Z-Narciso. Covid testing at that time was also negative. Regarding anticoagulation. She states she was quite anxious reading the side effects of eliquis and decided to stop taking it and instead was taking aspirin 81 mg. Patient has been fully vaccinated but has not received a booster which she was due for. She presented again on March 22 to the emergency center due to cough shortness of breath and fevers for the past couple days and gradually worsening. She denied having any abdominal pain, nausea or vomiting. EKG was atrial fibrillation with RVR. Heart rate was running in the 120s and 130s and patient was started on Cardizem drip, heparin drip and IV Lasix 40 mg twice daily. CBC was unremarkable except for a platelet count of 144. Sodium 132, potassium 4.7, chloride 92, CO2 29, BUN 34 creatinine 1.2. Blood sugar 123. INR 1.1. Total bilirubin 1.4, AST 235, ALT 126. Alkaline phosphatase 55. Troponin 0.067. Lactic acid 1.5. Coronal virus PCR detected. ProBNP 9570. Chest x-ray reveals pulmonary interstitial edema could be acute heart failure. Acute interstitial pneumonia also possible. Echocardiogram reveals EF of 30-35%, mild aortic regurgitation, moderate mitral regurgitation, severe tricuspid regurgitation, severe pulmonary hypertension. Patient has been seen by cardiology as well as by pulmonary medicine. 03/24: Patient's heart rate is still running 100-130 bpm and A. fib. Cardiology saw the patient and discontinued Cardizem drip, increased amiodarone and Lopressor. Patient is very upset this morning regarding Ativan dosing for bedtime which she states she takes 1.5 tablets at bedtime and a half a tablet in the morning. We will make medication changes. Discussed discharge planning and PT has recommended home with home care. marketing communication manager has arranged for [facility]NA. Patient has also been seen by pulmonary medicine. Anticipate discharge home tomorrow if heart rate is controlled. She is continued on IV Lasix 40 mg twice daily. 03/25: She remains in atrial fibrillation in the 120s and 130s. Cardizem drip was discontinued yesterday. Cardiology has increased Lopressor to 75 mg twice daily and continued amiodarone 200 mg twice daily. Patient has been started on eliquis. She has been afebrile, blood pressure 125/76, pulse ox 95% on 3 L nasal cannula. Patient is also followed by pulmonary medicine as well. Patient is continued on IV Lasix 40 mg every 12 hours. 03/26: Patient remains in atrial fibrillation. She is found sitting up in bed resting comfortably. Patient states that she has not been sleeping very well. She also is complaining of the stool softener is working too well. She is anxious to get home. Discharge diagnosis: 1. Acute on chronic hypoxic respiratory failure secondary to a combination of acute exacerbation of systolic heart failure, possible Covid 19 pneumonia, acute exacerbation of COPD, A. fib with RVR. 2. Acute exacerbation of systolic heart failure. 3. Possible Covid 19 pneumonia. 4. Acute exacerbation of COPD. 5. Chronic persistent atrial fibrillation presenting with RVR. 6. Transaminitis possibly related to Covid 19. 7. Hypertension. 8. Hyperlipidemia. 9. Chronic kidney disease stage III. 10. Valvular heart disease with mild aortic regurgitation, moderate mitral regurgitation, severe tricuspid regurgitation. 11. Severe pulmonary hypertension. DISCHARGE DISPOSITION Home with homecare Impression and plan of care have been directed as dictated by the signing physician. Yaneth Kamendat nurse practitioner acting as scribe for signing physician. Patient Condition at Discharge: Critical Plan - Discharge Summary Discharge Rx Participant: No New Discharge Prescriptions: Continue Fluticasone/Salmeterol [Advair 250-50 Diskus] 1 puff INHALATION RT-BID Furosemide [Lasix] 40 mg PO BID Tiotropium 18 Mcg/Puff [Spiriva] 1 cap INHALATION RT-DAILY Cholecalciferol (Vitamin D3) [Vitamin D3] 2,000 unit PO DAILY LORazepam [Ativan] 1 mg PO HS Ferrous Sulfate [Iron (65 MG Elemental)] 325 mg PO DAILY Amiodarone [Cordarone] 50 mg PO DAILY Azithromycin [Zithromax Z-pack (6 tabs)] See Taper PO DAILY Metoprolol Tartrate [Lopressor] 25 mg PO BID Simvastatin [Zocor] 40 mg PO HS Discharge Medication List Fluticasone/Salmeterol [Advair 250-50 Diskus] 1 puff INHALATION RT-BID 03/25/16 [History] Furosemide [Lasix] 40 mg PO BID 08/19/16 [History] Tiotropium 18 Mcg/Puff [Spiriva] 1 cap INHALATION RT-DAILY 08/19/16 [History] Cholecalciferol (Vitamin D3) [Vitamin D3] 2,000 unit PO DAILY 04/26/17 [History] LORazepam [Ativan] 1 mg PO HS 04/26/17 [History] Ferrous Sulfate [Iron (65 MG Elemental)] 325 mg PO DAILY 07/27/17 [History] Amiodarone [Cordarone] 50 mg PO DAILY 03/22/21 [History] Azithromycin [Zithromax Z-pack (6 tabs)] See Taper PO DAILY 03/22/21 [History] Metoprolol Tartrate [Lopressor] 25 mg PO BID 03/22/21 [History] Simvastatin [Zocor] 40 mg PO HS 03/22/21 [History] Follow up Appointment(s)/Referral(s): Otto Wills MD [Primary Care Provider] - 1-2 days [facility] Visiting Nurse, [NON-STAFF] - Activity/Diet/Wound Care/Special Instructions: Patient will need a wheel chair van ride home at d/c. (They do not run on Sundays) Continue with oxygen at home. Continue with home care Discharge/Stand Alone Forms: Who Do I Call?, Community Resources, Help In The Home, Outpatient Counseling
[2021-03-26 11:45] VITALS: BP 113/66; PULSE 124
--- NOTE | 2021-03-26 15:35 | P.PN ---
Subjective Progress Note Date: 03/26/21 Principal diagnosis: Respiratory failure. This is a 85-year-old white female patient of Dr. Wills, with past medical history of moderately severe COPD, Gold stage III disease at baseline on home oxygen at 3 L/m on as-needed basis, chronic systolic CHF with EF of 20-25%, paroxysmal atrial fibrillation used to be on Eliquis, which is not on her home med list now, anxiety, pulmonary hypertension related to chronic lung disease and chronic CHF, chronic kidney disease stage III, glaucoma and osteoarthritis. Patient follows with Dr. Crouch in the pulmonary clinic, she is maintained on Advair 250/50 Diskus and Spiriva on a daily basis. She came into the emergency department on 03/22/2021 at 1850 1 in the afternoon per EMS for evaluation of cough, shortness of breath and fevers. Patient states over the last couple of days or shortness of breath has been progressively worse, she has a productive cough, she isn't vaccinated for COVID 19, denies any obvious exposure. She is complaining about constitutional symptoms including fevers, no nausea or vomiting, no abdominal pain, she has some swelling in her bilateral lower extremities, denied any chest pain. Denies any runny nose or sore throat. She was noted to be in A. fib with RVR and was started on Cardizem drip and heparin infusion, her chest x-ray showing pulmonary interstitial edema. She also tested positive for COVID 19. The rest of the blood work showed normal white count of 4.2, hemoglobin 12.2, lymphocyte count of 0.5, sodium is 132, potassium is 4.7, chloride is 92, CO2 is 29, BUN is 34, creatinine is 1.2, plasma lactic acid is 1.5, AST was 235, ALT was 126, alk phos was 55, troponin was 0.067, proBNP was elevated at 9570. She did have a fever of 101.2F. Currently remains in A. fib with RVR with a rate of 120 to 1:30 BPM, continues on Cardizem infusion and 5 mg, she is currently on 3 L of oxygen pulse ox is 94%, her blood pressures are on the lower side with a BP of 89/71. Echocardiogram has been ordered and pending, patient was started on IV Lasix 40 mg twice daily. We started the on Decadron 6 mg daily, she continues on heparin infusion, cardiology consultation is pending, she appears to be in no acute distress. Progress note dated 03/24/2021. 85-year-old female, who was seen yesterday in consultation for chronic hypoxemic respiratory failure, secondary to CHF, COPD exacerbation, and coronavirus associated pneumonia. The patient currently is seen today again in room 380. She is on 3 L nasal cannula. She is getting saline at 20 mL an hour. She's got Cardizem running at 10 mg an hour. The patient's only complaint is that of shortness of breath, dry cough, and sore throat. She denies any chest pain or chest discomfort. No new laboratory data today. No additional chest x-rays today. Progress note dated 03/25/2021. 85-year-old female, seen in consultation 2 days ago. She is seen today in room 380. The patient is currently on 3 L nasal cannula. She's not receiving any IV fluids. The patient was seen for chronic hypoxemic respiratory failure, secondary to CHF, COPD, and coronavirus pneumonia. The patient appears to be relatively stable. She is speaking in full sentences. There is no evidence of use of accessory muscles. No new labs today. No new chest x-ray today. Progress note dated 03/26/2021. 85-year-old female seen in consultation 3 days ago. She is again seen in room 380. She's been in the hospital now for 4 days. The patient is currently on 3 L nasal cannula. She's not receiving any IV fluids. Her biggest complaint is that she feels very tired. She denies any shortness of breath. Laboratory data includes a white count 5.9, hemoglobin 11.1, hematocrit 34.9, and platelet count 162,000. Sodium 137, potassium 3.8, chlorides 96, CO2 33, anion gap 8, BUN 51, creatinine 1.40. AST is 58, ALP 83. Objective - Vital Signs Vital signs: Vital Signs Temp 97.5 F L 03/26/21 08:00 Pulse 124 H 03/26/21 08:00 Resp 18 03/26/21 08:00 BP 113/66 03/26/21 08:00 Pulse Ox 98 03/26/21 08:00 Intake & Output 03/25/21 03/26/21 03/26/21 18:59 06:59 18:59 Intake Total 540 360 Balance 540 360 Weight 62 kg Intake: Oral 540 360 Other: Voiding Method Toilet Toilet Diaper Diaper # Voids 2 1 3 # Bowel Movements 1 1 - Exam No acute distress, oriented 3. Currently on 3 L nasal cannula with saturations of 98%. HEENT examination is grossly unremarkable. Neck supple. Full range of motion. No adenopathy thyromegaly or neck vein distention. Cardiovascular examination reveals an irregular rhythm and rate. Heart rate 99 bpm. S1-S2 normal. No S3 or S4. No discernible murmur noted. Lungs reveal scattered bilateral rhonchi. There is basilar crackles. A few scattered high-pitched wheezes are also noted. Breath sounds are equal bilaterally. Abdomen soft bowel sounds are heard. No masses or tenderness. Extremities are intact. No cyanosis or clubbing. Mild, 1+, edema is noted in the lower extremities. Skin is without rash or lesion. Neurologic examination is brief but nonfocal. - Labs CBC & Chem 7: 03/26/21 08:56 03/26/21 08:56 Labs: Abnormal Lab Results - Last 24 Hours (Table) 03/26/21 03/26/21 Range/Units 08:56 08:56 RBC 3.44 L (3.80-5.40) m/uL Hgb 11.1 L (11.4-16.0) gm/dL MCV 101.4 H (80.0-100.0) fL Chloride 96 L (98-107) mmol/L Carbon Dioxide 33 H (22-30) mmol/L BUN 51 H (7-17) mg/dL Creatinine 1.40 H (0.52-1.04) mg/dL Glucose 151 H (74-99) mg/dL AST 58 H (14-36) U/L ALT 83 H (4-34) U/L Total Protein 5.9 L (6.3-8.2) g/dL Microbiology - Last 24 Hours (Table) 03/23/21 17:51 Blood Culture - Preliminary Blood No Growth after 48 hours 03/23/21 20:13 Urine Culture - Final Urine,Clean Catch 03/22/21 19:08 Blood Culture Gram Stain - Preliminary Blood Blood Culture - Preliminary Coagulase Negative Staph Assessment and Plan Assessment: Acute on chronic hypoxemic respiratory failure, secondary to systolic CHF, coronavirus associated pneumonia COPD exacerbation, and atrial fibrillation with RVR. Rule out non-ST segment elevation myocardial infarction. Cardiomyopathy, with ejection fraction of 20-25%. History of pulmonary hypertension. History of paroxysmal atrial fibrillation. History of stage III COPD. History of hypertension. Prior history of myocardial infarction. Osteoarthritis. Stage III chronic kidney disease. History of GI bleed. Chronic anxiety. [id number] history of tobacco use. Plan: Plan dated 03/24/2021. From the pulmonary standpoint, patient is doing well. The patient appears to be relatively stable. We will continue to follow and make recommendations where appropriate. The patient remains on 3 L nasal cannula. The patient's getting saline at 20 mL an hour, and a Cardizem drip at 10 mg an hour. Prognosis is guarded. Medications, labs, and x-rays all reviewed. Prognosis is certainly g uarded. Plan dated 03/25/2021. The patient appears to be doing relatively well. She's not receiving any IV fluids. She is on 3 L nasal cannula. Saturations are in the mid 90s. The Cardizem drip has been discontinued. The patient is getting vitamin C, vitamin D3, and zinc. In addition, the patient is on Eliquis, and Decadron. The patient is stable from the pulmonary standpoint. She's lying flat in bed, without any respiratory distress or difficulty. Additional recommendations and suggestions are forthcoming. We will continue to follow make recommendations where appropriate. Prognosis is guarded. Plan dated 03/26/2021. The patient's doing well. She's been weaned down to 3 L nasal cannula. She's not receiving any IV fluids. Her only complaint today is that she's very tired. The patient is on vitamin C, vitamin D3, and zinc. In addition, she is on Eliquis and Decadron. From the pulmonary standpoint, she is very stable. She is laying flat in bed without any respiratory distress or difficulty. There is no conversational dyspnea or use of accessory muscles. We will continue to follow and make recommendations where appropriate. Prognosis is certainly guarded given her age. Time with Patient: Less than 30
== END 2021-03-26 16:00 | disposition home or self-care (01) | DRG 177 ==
LOC: EC 18:33 → 3SCARD 20:19
PROVIDERS: ADMIT Internal Medicine Geriatric Medicine; ATTEND Internal Medicine Geriatric Medicine
PROC: 3E0333Z Introduction of Anti-inflammatory into Peripheral Vein, Percutaneous Approach (ICD-10-PCS; principal; 2021-03-22)
DX: U07.1 COVID-19 (principal); I50.23 Acute on chronic systolic (congestive) heart failure; J12.82 Pneumonia due to coronavirus disease 2019; J96.21 Acute and chronic respiratory failure with hypoxia; I13.0 Hypertensive heart and chronic kidney disease with heart failure and stage 1 through stage 4 chronic kidney disease, or unspecified chronic kidney disease; I42.8 Other cardiomyopathies; I48.19 Other persistent atrial fibrillation; J44.0 Chronic obstructive pulmonary disease with (acute) lower respiratory infection; J44.1 Chronic obstructive pulmonary disease with (acute) exacerbation; E78.5 Hyperlipidemia, unspecified; F41.9 Anxiety disorder, unspecified; H91.90 Unspecified hearing loss, unspecified ear; I08.3 Combined rheumatic disorders of mitral, aortic and tricuspid valves; I25.10 Atherosclerotic heart disease of native coronary artery without angina pectoris; I25.2 Old myocardial infarction; I27.20 Pulmonary hypertension, unspecified; N18.30 Chronic kidney disease, stage 3 unspecified; M19.041 Primary osteoarthritis, right hand; M19.042 Primary osteoarthritis, left hand; R74.01 Elevation of levels of liver transaminase levels; Z79.01 Long term (current) use of anticoagulants; Z79.51 Long term (current) use of inhaled steroids; Z79.899 Other long term (current) drug therapy; Z80.41 Family history of malignant neoplasm of ovary; Z82.0 Family history of epilepsy and other diseases of the nervous system; Z82.49 Family history of ischemic heart disease and other diseases of the circulatory system; Z82.5 Family history of asthma and other chronic lower respiratory diseases; Z87.891 Personal history of nicotine dependence; Z90.711 Acquired absence of uterus with remaining cervical stump; Z91.19 Patient's noncompliance with other medical treatment and regimen; Z99.81 Dependence on supplemental oxygen
CPT/HCPCS: 36415; 71045; 80053; 81003; 83605; 83735; 83880; 84484; 85025; 85027; 85610; 85730; 87040; 87077; 87086; 87186; 87635; 93005; 93308; 94640; 96361; 96374; 96375; 99291

== ENCOUNTER 2021-03-28 11:52 | Inpatient (IN) | payer MEDICARE, BC ==
[2021-03-28] MEDS ORDERED: SODIUM CHLORIDE 0.9% 500 ML 500 ML IV STA (12:23)
--- NOTE | 2021-03-28 13:02 | ED ---
General Adult HPI - General Chief complaint: Weakness Stated complaint: Weakness Time Seen by Provider: 03/28/21 12:05 Source: patient, EMS, RN notes reviewed, old records reviewed Mode of arrival: EMS Limitations: physical limitation - History of Present Illness Initial comments: 85-year-old female presenting for reevaluation. Patient was recently discharged from this institution with generalized weakness, and cold with hypoxia. She was discharged on home oxygen. Patient has been living by herself. She states she has not had hardly anything to eat or drink over the past several days and she's been home. She denies fever. She's had some minimal vomiting and diarrhea. No chest pain. Her breathing is unchanged from the time of discharge. - Related Data Home Medications Medication Instructions Recorded Confirmed Fluticasone/Salmeterol [Advair 1 puff INHALATION RT-BID 03/25/16 03/28/21 250-50 Diskus] Furosemide [Lasix] 40 mg PO BID 08/19/16 03/28/21 Tiotropium 18 Mcg/Puff [Spiriva] 1 cap INHALATION RT-DAILY 08/19/16 03/28/21 Cholecalciferol (Vitamin D3) 2,000 unit PO DAILY 04/26/17 03/28/21 [Vitamin D3] LORazepam [Ativan] 1 mg PO HS 04/26/17 03/28/21 Ferrous Sulfate [Iron (65 MG 325 mg PO DAILY 07/27/17 03/28/21 Elemental)] Amiodarone [Cordarone] See Taper PO DIRECTED 03/28/21 03/28/21 Previous Rx's Medication Instructions Recorded Albuterol Inhaler [Ventolin Hfa 1 puff INHALATION RT-QID #1 gm 03/26/21 Inhaler] Apixaban [Eliquis] 2.5 mg PO BID #60 tablet 03/26/21 Atorvastatin [Lipitor] 20 mg PO HS #30 tab 03/26/21 Metoprolol Tartrate [Lopressor] 75 mg PO TID #270 tab 03/26/21 Allergies Allergy/AdvReac Type Severity Reaction Status Date / Time amoxicillin [From Augmentin] Allergy Unknown Verified 03/28/21 12:36 cefuroxime axetil Allergy Unknown Verified 03/28/21 12:36 [From Ceftin] clavulanic acid Allergy Unknown Verified 03/28/21 12:36 [From Augmentin] Review of Systems ROS Statement: Those systems with pertinent positive or pertinent negative responses have been documented in the HPI. ROS Other: All systems not noted in ROS Statement are negative. Past Medical History Past Medical History: Atrial Fibrillation, Coronary Artery Disease (CAD), Heart Failure, COPD, Eye Disorder, GERD/Reflux, GI Bleed, Hearing Disorder / Deafness, Hyperlipidemia, Hypertension, Myocardial Infarction (DC), Osteoarthritis (OA), Pneumonia, Renal Disease, Respiratory Disorder, Skin Disorder Additional Past Medical History / Comment(s): Covid+ 03/22/20 at [facility]. Pt diagnosed 03/18/21 with pharyngitis and is on antibiotic, nonischemic car diomyopathy, pulmonary HTN, bronchitis, O2 at 2L/HS, gastritis, diverticular disease, [place]/aides bilaterally, bilateral eye glaucoma, arthritis bilateral hands, CKD, rosacia, past lumbar slipped disc/pain/improved now. Last Myocardial Infarction Date:: 2016 History of Any Multi-Drug Resistant Organisms: None Reported Past Surgical History: Adenoidectomy, Appendectomy, Heart Catheterization, Hysterectomy, Orthopedic Surgery, Tonsillectomy Additional Past Surgical History / Comment(s): 2017 cardiac cath/treated medically, partial hysterectomy/still has part of L ovary, R knee arthroscopy/torn meniscus, EGD, colonoscopies, bilateral blepharoplasties, bilateral eye cataract removal/laser surgery for glaucoma. Past Anesthesia/Blood Transfusion Reactions: No Reported Reaction Additional Past Anesthesia/Blood Transfusion Reaction / Comment(s): . Past Psychological History: Anxiety Smoking Status: Former smoker Past Alcohol Use History: None Reported Past Drug Use History: None Reported - Past Family History Brother(s) Additional Family Medical History / Comment(s): Patient had 3 brothers and one is living and 93 years of age and [place] with history of Alzheimer's dementia, coronary artery disease, CHF, A. fib, COPD. Patient has 2 brothers that have passed one from alcoholism and one from a traumatic head injury from a fall. Sister(s) Additional Family Medical History / Comment(s): Patient has one sister that of ovarian cancer. Patient has one son that from alcoholic complications. Father Family Medical History: Cancer Additional Family Medical History / Comment(s): Father at age 77yrs of cancer which pt believes may have started in his throat. Mother Family Medical History: Dementia Additional Family Medical History / Comment(s): Mother at age 95yrs. She was very healthy most of her life- she had dementia at the very end of her life. General Exam Limitations: physical limitation General appearance: alert, in no apparent distress Head exam: Present: atraumatic, normocephalic Eye exam: Present: normal appearance, PERRL ENT exam: Present: mucous membranes dry Neck exam: Present: normal inspection. Absent: tenderness, meningismus Respiratory exam: Present: rales. Absent: respiratory distress Cardiovascular Exam: Present: regular rate, irregular rhythm GI/Abdominal exam: Present: soft. Absent: distended, tenderness, guarding, rebound Extremities exam: Present: normal inspection, normal capillary refill Neurological exam: Present: alert, oriented X3, CN II-XII intact. Absent: motor sensory deficit Psychiatric exam: Present: normal affect, normal mood Skin exam: Present: warm, dry, intact. Absent: cyanosis, diaphoretic Course Vital Signs 03/28/21 03/28/21 11:57 13:42 Temperature 97.1 F L Pulse Rate 84 108 H Respiratory 18 24 Rate Blood Pressure 99/53 104/71 O2 Sat by Pulse 97 98 Oximetry EKG Findings - EKG Comments: EKG Findings:: Atrial fibrillation, left axis, LVH, no ST segment elevation, she has T-wave inversion in the precordial leads as well as inferior leads. Ventricular rate of 94, QRS duration 94, QTC 507 Medical Decision Making - Medical Decision Making 85-year-old female history of atrial fibrillation, recent hospital admission for coronavirus pneumonia with hypoxia requiring supplemental oxygen. Patient returns for reevaluation. She is currently living alone. She denies chest pain does have persistent dyspnea. She has not been eating or drinking well, clinically appears dehydrated. No respiratory distress. Chest x-ray shows an interstitial infiltrate versus CHF. She has a normal CBC was stable hemoglobin, no leukocytosis, creatinine 1.29. Minimal troponin elevation 0.067. This level will be trended. She is anticoagulated at baseline. She has no active chest pain. Cardiology will be placed on consult for recommendations. Patient may require rehabilitation. I did discuss case with Dr. Pantoja who will admit. - Lab Data Result diagrams: 03/28/21 12:45 01/10/22 12:45 Lab Results 03/28/21 03/28/21 03/28/21 Range/Units 12:45 12:45 12:45 WBC 7.2 (3.8-10.6) k/uL RBC 4.09 (3.80-5.40) m/uL Hgb 13.1 (11.4-16.0) gm/dL Hct 40.0 (34.0-46.0) % MCV 97.7 (80.0-100.0) fL MCH 32.0 (25.0-35.0) pg MCHC 32.8 (31.0-37.0) g/dL RDW 13.0 (11.5-15.5) % Plt Count 258 (150-450) k/uL MPV 7.9 Neutrophils % 87 % Lymphocytes % 6 % Monocytes % 4 % Eosinophils % 1 % Basophils % 0 % Neutrophils # 6.3 (1.3-7.7) k/uL Lymphocytes # 0.5 L (1.0-4.8) k/uL Monocytes # 0.3 (0-1.0) k/uL Eosinophils # 0.1 (0-0.7) k/uL Basophils # 0.0 (0-0.2) k/uL PT 12.1 H (9.0-12.0) sec INR 1.2 H (<1.2) APTT 24.8 (22.0-30.0) sec Sodium (137-145) mmol/L Potassium (3.5-5.1) mmol/L Chloride (98-107) mmol/L Carbon Dioxide (22-30) mmol/L Anion Gap mmol/L BUN (7-17) mg/dL Creatinine (0.52-1.04) mg/dL Est GFR (CKD-EPI)AfAm (>60 ml/min/1.73 sqM) Est GFR (CKD-EPI)NonAf (>60 ml/min/1.73 sqM) Glucose (74-99) mg/dL Plasma Lactic Acid Jordon (0.7-2.0) mmol/L Calcium (8.4-10.2) mg/dL Magnesium (1.6-2.3) mg/dL Total Bilirubin (0.2-1.3) mg/dL AST (14-36) U/L ALT (4-34) U/L Alkaline Phosphatase (38-126) U/L Troponin I (0.000-0.034) ng/mL Total Protein (6.3-8.2) g/dL Albumin (3.5-5.0) g/dL Urine Color Light Yellow Urine Appearance Clear (Clear) Urine pH 7.5 (5.0-8.0) Ur Specific [place] 1.010 (1.001-1.035) Urine Protein Negative (Negative) Urine Glucose (UA) Negative (Negative) Urine Ketones Negative (Negative) Urine Blood Negative (Negative) Urine Nitrite Negative (Negative) Urine Bilirubin Negative (Negative) Urine Urobilinogen <2.0 (<2.0) mg/dL Ur Leukocyte Esterase Negative (Negative) 03/28/21 03/28/21 03/28/21 Range/Units 12:45 12:45 12:45 WBC (3.8-10.6) k/uL RBC (3.80-5.40) m/uL Hgb (11.4-16.0) gm/dL Hct (34.0-46.0) % MCV (80.0-100.0) fL MCH (25.0-35.0) pg MCHC (31.0-37.0) g/dL RDW (11.5-15.5) % Plt Count (150-450) k/uL MPV Neutrophils % % Lymphocytes % % Monocytes % % Eosinophils % % Basophils % % Neutrophils # (1.3-7.7) k/uL Lymphocytes # (1.0-4.8) k/uL Monocytes # (0-1.0) k/uL Eosinophils # (0-0.7) k/uL Basophils # (0-0.2) k/uL PT (9.0-12.0) sec INR (<1.2) APTT (22.0-30.0) sec Sodium 132 L (137-145) mmol/L Potassium 3.8 (3.5-5.1) mmol/L Chloride 89 L (98-107) mmol/L Carbon Dioxide 38 H (22-30) mmol/L Anion Gap 5 mmol/L BUN 44 H (7-17) mg/dL Creatinine 1.29 H (0.52-1.04) mg/dL Est GFR (CKD-EPI)AfAm 43 (>60 ml/min/1.73 sqM) Est GFR (CKD-EPI)NonAf 37 (>60 ml/min/1.73 sqM) Glucose 99 (74-99) mg/dL Plasma Lactic Acid Jordon 1.0 (0.7-2.0) mmol/L Calcium 8.8 (8.4-10.2) mg/dL Magnesium 2.4 H (1.6-2.3) mg/dL Total Bilirubin 1.5 H (0.2-1.3) mg/dL AST 51 H (14-36) U/L ALT 64 H (4-34) U/L Alkaline Phosphatase 72 (38-126) U/L Troponin I 0.092 H* (0.000-0.034) ng/mL Total Protein 6.4 (6.3-8.2) g/dL Albumin 3.7 (3.5-5.0) g/dL Urine Color Urine Appearance (Clear) Urine pH (5.0-8.0) Ur Specific [place] (1.001-1.035) Urine Protein (Negative) Urine Glucose (UA) (Negative) Urine Ketones (Negative) Urine Blood (Negative) Urine Nitrite (Negative) Urine Bilirubin (Negative) Urine Urobilinogen (<2.0) mg/dL Ur Leukocyte Esterase (Negative) Disposition Clinical Impression: COVID-19, Hypoxia, Elevated troponin Disposition: ADMITTED IP TO THIS [facility] Condition: Stable Is patient prescribed a controlled substance at d/c from ED?: No Referrals: Otto Wills MD [Primary Care Provider] - 1-2 days Decision to Admit Reason: Admit from EC Decision Date: 03/28/21 Decision Time: 14:38
[2021-03-28 13:09] LABS: Basophils % (A) 0 %; Eosinophils # (A) 0.1 k/uL (0-0.7); Eosinophils % (A) 1 %; HGB 13.1 gm/dL (11.4-16.0); Lymphocytes # (A) 0.5 k/uL (1.0-4.8); Lymphocytes % (A) 6 %; MCHC 32.8 g/dL (31.0-37.0); MCV 97.7 fL (80.0-100.0); Mean Platelet Volume 7.9; Monocytes # (A) 0.3 k/uL (0-1.0); Monocytes % (A) 4 %; Neutrophils # (A) 6.3 k/uL (1.3-7.7); Neutrophils % (A) 87 %; Platelet Count 258 k/uL (150-450); RBC 4.09 m/uL (3.80-5.40); WBC 7.2 k/uL (3.8-10.6)
--- NOTE | 2021-03-28 13:22 | XR ---
EXAMINATION TYPE: XR chest 1V portable DATE OF EXAM: 03/28/2021 COMPARISON: 03/22/2021 HISTORY: Shortness of breath TECHNIQUE: Single frontal view of the chest is obtained. FINDINGS: A diffuse interstitial pattern with more confluent density in the right upper lobe. Promin ence of the right hilum. Small bilateral effusions. Heart is enlarged. Atherosclerotic change aorta. Diffuse osteopenia. IMPRESSION: 1. Correlate for CHF otherwise consider interstitial pneumonia. 2. Cardiomegaly and COPD
[2021-03-28 13:25] LABS: Albumin 3.7 g/dL (3.5-5.0); Calcium 8.8 mg/dL (8.4-10.2); Magnesium 2.4 mg/dL (1.6-2.3); Potassium 3.8 mmol/L (3.5-5.1); Total Bilirubin 1.5 mg/dL (0.2-1.3); Total Protein 6.4 g/dL (6.3-8.2)
[2021-03-28 13:32] LABS: INR 1.2 (<1.2); Prothrombin Time 12.1 sec (9.0-12.0)
[2021-03-28 13:33] LABS: Partial Thromboplastin Time 24.8 sec (22.0-30.0)
[2021-03-28 14:16] LABS: Appearance,Urine Clear (Clear); Bilirubin,Urine Negative (Negative); Blood,Urine Negative (Negative); Color,Urine Light Yellow; Glucose,Urine (UA) Negative (Negative); Ketones,Urine Negative (Negative); Leukocyte Esterase,Urine Negative (Negative); Nitrite,Urine Negative (Negative); PH, Urine 7.5 (5.0-8.0); Protein,Urine Negative (Negative); Urobilinogen,Urine <2.0 mg/dL (<2.0)
[2021-03-28] MEDS ORDERED: NALOXONE 0.4 MG/ML 1 ML VIAL IV PRN (14:34)
[2021-03-28] MEDS: ACETAMINOPHEN TAB 325 MG TAB PO PRN (15:10)
--- NOTE | 2021-03-28 17:58 | P.HPIM ---
History of Present Illness H&P Date: 03/28/21 Chief Complaint: Weakness, diminished appetite, shortness of breath This is an 85-year-old female patient of Dr. Wills and Dr. Pagan with past medical history of chronic persistent atrial fibrillation, chronic systolic heart failure, pulmonary hypertension, COPD with chronic hypoxic respiratory failure on home O2 at 3 L as needed, hypertension, hyperlipidemia, chronic kidney disease stage III, generalized osteoarthritis She was admitted, 03/22/2021, discharged 03/26/2021, secondary to acute Covid patient has been vaccinated, however she is missing her booster shot. For which she is due for. She was admitted with acute interstitial pneumonia, coronary virus was positive, on 03/22/2020, when she presented with cough shortness of breath, fever, A. fib with RVR. At that time, echocardiogram was 30-35%, with mild AR, moderate MR, severe TR proBNP of 9570 lactic acid was 1.5, troponin was 0.067. She was managed for this acute Covid, and the A. fib with RVR, for which she received Cardizem drip, amiodarone was 3 titrated up, along with the Lopressor. Patient was subsequently discharged to home, with home therapy, however patient is weaker than usual, cannot manage on her own, despite visiting nurses assisting with her care. She was discharged on 3 L O2 nasal cannula, with a discharge creatinine of 1.4, BUN of 51, hemoglobin of 11.1. Patient lives alone, has increasing weakness, no falls, has some shortness of breath with exertion, no chest pain, patient denies any new edema In the emergency room, she was slightly hyponatremic 132, CO2 is worse, 38, creatinine 1.24, BUN 44, admission elevated at 2.4, total bilirubin is elevated at 1.5, AST and ALT, I 51 and 64, respectively which is better than previous. Troponins elevated at 0.092, and 0.088, as previous. Urinalysis negative, INR of 1.2, no d-dimer is done chest x-ray, correlated for CHF, with diffuse interstitial pattern, more confluent density in the right upper lobe, small bilateral effusion, heart is enlarged, diffuse osteopenia, cardiomegaly and COPD changes. Consult with pulmonary, Dr. Torres, with PT OT, might need to be reevaluated for thromboembolic pulmonary phenomenon, check for d-dimer, might need CPAP protocol, however patient is already oneliquis 0.5 mg twice a day. If d-dimer is elevated, we'll going to proceed with Doppler legs, might need VQ scan. Heart rate patient's between 84-104, pulse oximetry 92-98% between 2-3 L nasal cannula consult with social work, PT OT and most likely would need subacute rehab Review of Systems Constitutional: Reports as per HPI, Reports fatigue, Reports lethargy, Reports poor appetite, Reports weakness Ears, nose, mouth and throat: Reports as per HPI, Reports nasal congestion, Denies epistaxis, Denies headache, Denies odynophagia, Denies sinus pressure, Denies sore throat Cardiovascular: Reports as per HPI, Reports lightheadedness, Reports shortness of breath, Denies edema, Denies rapid heart beat Respiratory: Reports as per HPI Gastrointestinal: Reports as per HPI, Reports early satiety, Reports loss of appetite, Denies abdominal pain, Denies change in bowel habits, Denies coffee ground emesis, Denies melena, Denies nausea Genitourinary: Reports as per HPI Menstruation: Reports as per HPI Musculoskeletal: Reports as per HPI, Reports gait dysfunction, Reports limitation of motion, Reports muscle weakness, Reports myalgias, Denies hot joints Integumentary: Reports as per HPI Neurological: Reports as per HPI, Reports balance difficulties, Reports gait dysfunction, Reports headaches, Reports weakness, Denies convulsions, Denies head injury, Denies syncope, Denies vertigo Psychiatric: Reports as per HPI, Reports change in sleep habits, Reports difficulty concentrating, Reports memory loss, Reports sleep disturbances Endocrine: Reports as per HPI, Denies low blood sugars, Denies weight change Hematologic/Lymphatic: Reports as per HPI Allergic/Immunologic: Reports as per HPI Past Medical History Past Medical History: Atrial Fibrillation, Coronary Artery Disease (CAD), Heart Failure, COPD, Eye Disorder, GERD/Reflux, GI Bleed, Hearing Disorder / Deafness, Hyperlipidemia, Hypertension, Myocardial Infarction (CT), Osteoarthritis (OA), Pneumonia, Renal Disease, Respiratory Disorder, Skin Disorder Additional Past Medical History / Comment(s): Covid+ 03/22/20 at [facility]. Pt diag nosed 03/18/21 with pharyngitis and is on antibiotic, nonischemic cardiomyopathy, pulmonary HTN, bronchitis, O2 at 2L/HS, gastritis, diverticular disease, [place]/aides bilaterally, bilateral eye glaucoma, arthritis bilateral hands, CKD, rosacia, past lumbar slipped disc/pain/improved now. Last Myocardial Infarction Date:: 2016 History of Any Multi-Drug Resistant Organisms: None Reported Past Surgical History: Adenoidectomy, Appendectomy, Heart Catheterization, Hysterectomy, Orthopedic Surgery, Tonsillectomy Additional Past Surgical History / Comment(s): 2017 cardiac cath/treated medically, partial hysterectomy/still has part of L ovary, R knee arthroscopy/torn meniscus, EGD, colonoscopies, bilateral blepharoplasties, bilateral eye cataract removal/laser surgery for glaucoma. Past Anesthesia/Blood Transfusion Reactions: No Reported Reaction Additional Past Anesthesia/Blood Transfusion Reaction / Comment(s): . Past Psychological History: Anxiety Smoking Status: Former smoker Past Alcohol Use History: None Reported Past Drug Use History: None Reported - Past Family History Brother(s) Additional Family Medical History / Comment(s): Patient had 3 brothers and one is living and 93 years of age and [place] with history of Alzheimer's dementia, coronary artery disease, CHF, A. fib, COPD. Patient has 2 brothers that have passed one from alcoholism and one from a traumatic head injury from a fall. Sister(s) Additional Family Medical History / Comment(s): Patient has one sister that of ovarian cancer. Patient has one son that from alcoholic complications. Father Family Medical History: Cancer Additional Family Medical History / Comment(s): Father at age 77yrs of cancer which pt believes may have started in his throat. Mother Family Medical History: Dementia Additional Family Medical History / Comment(s): Mother at age 95yrs. She was very healthy most of her life- she had dementia at the very end of her life. Medications and Allergies Home Medications Medication Instructions Recorded Confirmed Type Fluticasone/Salmeterol [Advair 1 puff INHALATION RT-BID 03/25/16 03/28/21 History 250-50 Diskus] Furosemide [Lasix] 40 mg PO BID 08/19/16 03/28/21 History Tiotropium 18 Mcg/Puff [Spiriva] 1 cap INHALATION RT-DAILY 08/19/16 03/28/21 History Cholecalciferol (Vitamin D3) 2,000 unit PO DAILY 04/26/17 03/28/21 History [Vitamin D3] LORazepam [Ativan] 1 mg PO HS 04/26/17 03/28/21 History Ferrous Sulfate [Iron (65 MG 325 mg PO DAILY 07/27/17 03/28/21 History Elemental)] Albuterol Inhaler [Ventolin Hfa 1 puff INHALATION RT-QID #1 gm 03/26/21 03/28/21 Rx Inhaler] Apixaban [Eliquis] 2.5 mg PO BID #60 tablet 03/26/21 03/28/21 Rx Atorvastatin [Lipitor] 20 mg PO HS #30 tab 03/26/21 03/28/21 Rx Metoprolol Tartrate [Lopressor] 75 mg PO TID #270 tab 03/26/21 03/28/21 Rx Amiodarone [Cordarone] See Taper PO DIRECTED 03/28/21 03/28/21 History Allergies Allergy/AdvReac Type Severity Reaction Status Date / Time amoxicillin [From Augmentin] Allergy Unknown Verified 03/28/21 12:36 cefuroxime axetil Allergy Unknown Verified 03/28/21 12:36 [From Ceftin] clavulanic acid Allergy Unknown Verified 03/28/21 12:36 [From Augmentin] Physical Exam Vitals: Vital Signs Temp Pulse Resp BP Pulse Ox 03/28/21 15:08 104 H 16 98/71 92 L 03/28/21 13:42 108 H 24 104/71 98 03/28/21 11:57 97.1 F L 84 18 99/53 97 Intake and Output 03/28/21 03/28/21 03/28/21 06:59 14:59 22:59 Other: Weight 63.503 kg - Constitutional General appearance: cooperative, no acute distress - EENT Eyes: EOMI, PERRLA, dentition normal, normal appearance - Neck Neck: normal ROM - Respiratory Respiratory: bilateral: CTA, negative: diminished, dullness, rales - Cardiovascular Rhythm: regular Heart sounds: normal: S1, S2 Abnormal Heart Sounds: no systolic murmur, no diastolic murmur, no rub, no S3 Gallop, no S4 Gallop, no click, no other - Gastrointestinal General gastrointestinal: normal bowel sounds, soft - Integumentary Integumentary: normal - Neurologic Neurologic: CNII-XII intact - Musculoskeletal Musculoskeletal: gait normal, strength equal bilaterally - Psychiatric Psychiatric: A&O x's 3, appropriate affect, intact judgment & insight Results CBC & Chem 7: 03/28/21 12:45 03/28/21 12:45 Labs: Abnormal Lab Results - Last 24 Hours (Table) 03/28/21 03/28/21 03/28/21 Range/Units 12:45 12:45 12:45 Lymphocytes # 0.5 L (1.0-4.8) k/uL PT 12.1 H (9.0-12.0) sec INR 1.2 H (<1.2) Sodium 132 L (137-145) mmol/L Chloride 89 L (98-107) mmol/L Carbon Dioxide 38 H (22-30) mmol/L BUN 44 H (7-17) mg/dL Creatinine 1.29 H (0.52-1.04) mg/dL Magnesium 2.4 H (1.6-2.3) mg/dL Total Bilirubin 1.5 H (0.2-1.3) mg/dL AST 51 H (14-36) U/L ALT 64 H (4-34) U/L Troponin I (0.000-0.034) ng/mL 03/28/21 03/28/21 Range/Units 12:45 16:09 Lymphocytes # (1.0-4.8) k/uL PT (9.0-12.0) sec INR (<1.2) Sodium (137-145) mmol/L Chloride (98-107) mmol/L Carbon Dioxide (22-30) mmol/L BUN (7-17) mg/dL Creatinine (0.52-1.04) mg/dL Magnesium (1.6-2.3) mg/dL Total Bilirubin (0.2-1.3) mg/dL AST (14-36) U/L ALT (4-34) U/L Troponin I 0.092 H* 0.088 H* (0.000-0.034) ng/mL Thrombosis Risk Factor Assmnt - DVT/VTE Prophylaxis DVT/VTE Prophylaxis: Pharmacologic Prophylaxis ordered - Choose All That Apply Each Factor Represents 1 point: Heart failure (<1month), Sepsis (< 1month) Each Risk Factor Represents 3 Points: Age 75 years or older Thrombosis Risk Factor Assessment Total Risk Factor Score: 5 Thrombosis Risk Factor Assessment Level: High Risk Assessment and Plan Plan: 1. Acute on chronic hypoxic respiratory failure secondary to a combination of acute exacerbation of systolic heart failure, with Covid 19 pneumonia, acute exacerbation of COPD, A. fib with minimal RVR. Continue oxygen therapy patient was treated for CHF, and A. fib RVR, and thought that she had incidental Covid in March 22 to 03/26/2021. If this is true, she would be on her sixth day of illness, consult Infectious dis, started on dexamethasone 6 mg, check for d- dimer, Covid cytokine markers, 2. Acute exacerbation of systolic heart failure small bilateral pleural effusion. Continue Lasix 40 mg IV every 12 hours, I&O and daily weights, monitor renal function and electrolytes. 3. Covid 19 with hypoxemia, intertial infiltrates vs edema Patient's been started on Ventolin inhaler 4 times daily, vitamin supplements, Symbicort 2 puffs twice daily, dexamethasone 6 mg IV push daily, Spiriva. 4. Acute exacerbation of COPD. Continue Symbicort, Spiriva, albuterol, dexamethasone. 5. Chronic persistent atrial fibrillation presenting with RVR. cONTINUE eliquis 2.5 mg twice daily, Cardizem drip is continued, continue amiodarone 200 mg twice daily and continue Lopressor increased to 75 mg 3 times daily. 6. Transaminitis possibly related to Covid 19. Continue to monitor. 7. Hypertension. Continue Lopressor. 8. Hyperlipidemia. Continue Lipitor 20 mg at bedtime. 9. Chronic kidney disease stage III. Monitor renal function, avoid nephrotoxic agents. 10. Valvular heart disease with mild aortic regurgitation, moderate mitral regurgitation, severe tricuspid regurgitation. 11. Severe pulmonary hypertension. 12. GI prophylaxis. Protonix. 13. DVT prophylaxis. Eliquis. 14. Debility with worsening weakness, consult PT OT, social work, might need subacute rehab, against therapy. Social situation is not ideal, patient lives alone
[2021-03-28] MEDS ORDERED: MIDODRINE 5 MG TAB PO STA (18:29)
[2021-03-28] MEDS: DEXAMETHASONE SOD PHOSPHATE 10 MG/ML 1 ML VIAL IVP SCH (18:41)
[2021-03-28] MEDS: ALBUTEROL HFA INHALER INHALATION SCH (19:15)
[2021-03-28] MEDS: SYMBICORT 80-4.5 MCG INHALER INHALATION SCH (19:16)
[2021-03-28] MEDS: AMIODARONE 200 MG TAB PO SCH (21:22)
[2021-03-28] MEDS: LORazepam 1 MG TAB PO SCH (21:22)
[2021-03-28] MEDS: ATORVASTATIN 20 MG TAB PO SCH (21:22)
[2021-03-28] MEDS: APIXABAN 2.5 MG TABLET PO SCH (21:22)
[2021-03-28] MEDS: AZITHROMYCIN 500 MG in SODIUM CHLORIDE 0.9% 250 ML IVPB SCH (21:23)
[2021-03-29] MEDS: METOPROLOL TARTRATE 25 MG TAB PO SCH ×4 (00:57→20:53)
[2021-03-29 07:23] LABS: Calcium 8.4 mg/dL (8.4-10.2); Potassium 4.6 mmol/L (3.5-5.1)
[2021-03-29] MEDS ORDERED: MIDODRINE 5 MG TAB PO SCH (07:30)
[2021-03-29] MEDS: ALBUTEROL HFA INHALER INHALATION SCH ×4 (08:17→18:56)
[2021-03-29] MEDS: SYMBICORT 80-4.5 MCG INHALER INHALATION SCH ×2 (08:17→22:09)
[2021-03-29] MEDS: TIOTROPIUM 2.5 MCG INHALER INHALATION SCH (08:18)
[2021-03-29] MEDS: DEXAMETHASONE SOD PHOSPHATE 10 MG/ML 1 ML VIAL IVP SCH (08:59)
[2021-03-29] MEDS: FUROSEMIDE 40 MG TAB PO SCH ×2 (08:59→15:28)
[2021-03-29] MEDS: AMIODARONE 200 MG TAB PO SCH ×2 (08:59→20:53)
[2021-03-29] MEDS: CHOLECALCIFEROL 25 MCG (1000 IU) TABLET PO SCH (08:59)
[2021-03-29] MEDS ORDERED: FUROSEMIDE 40 MG TAB PO SCH (09:00)
[2021-03-29] MEDS: APIXABAN 2.5 MG TABLET PO SCH ×2 (09:00→20:53)
--- NOTE | 2021-03-29 11:10 | P.CRDCN ---
History of Present Illness History of present illness: HISTORY OF PRESENT ILLNESS: This is a 85-year-old female with a past medical history significant for chronic persistent atrial fibrillation, congestive heart failure, hypertension, and hyperlipidemia. Patient follows in the office with Dr. Pagan. We have been asked to see the patient in consultation for congestive heart failure. Patient was recently admitted on 03/23/21, Cardiology saw the patient for CHF, atrial fibrillation with RVR and patient was treated for covid- 19. She was found to have decreased EF 30-35%. She was treated with IV Lasix, and IV Cardizem for rate control. Her metoprolol was increased for rate control. She was stabilized and switch to PO Lasix and discharged home on home oxygen. She presented to the hospital this time secondary generalized weakness, hypoxia, cough, decreased appetite, nausea, vomiting, not eating and drinking well for the past couple days since she was discharged on 03/26/2021. She is seen in the emergency department, she is lying comfortably in bed. She is on 4L nasal cannula oxygen saturations 90%. She denies any worsening shortness of breath or chest pain. She denies any further nausea or vomiting DIAGNOSTICS: EKG reveals atrial fibrillation HR 94, T wave inversions in leads I, aVL, II, III, aVF, V4-V6. Chest xray diffuse interstitial pattern with more confluent density in the right upper lobe. Cardiomegaly and COPD. no significant CHF. Laboratory data: cbc Unremarkable, d-dimer negative, sodium 135, potassium 4.6, BUN 37, serum creatinine 1.6, troponin 0.09, 0.08, 0.08, UA ntegative Current home cardiac medications include Lasix 40 mg twice a day, metoprolol titrate 75 mg 3 times a day, atorvastatin 20 mg nightly, Eliquis 2.5 mg twice a day, amiodarone taper 03/24/21 Echocardiogram completed revealing ejection fraction 30-35%, mild aortic regurgitation, moderate mitral regurgitation, severe tricuspid regurgitation, and severe pulmonary hypertension She underwent cardiac catheterization in 2017 revealing minimal coronary artery disease PHYSICAL EXAM: Blood pressure 113/79, heart rate 99, afebrile, oxygen saturation 90% on 4 L nasal cannula CONSTITUTIONAL: No apparent distress. HEENT: Neck Supple. No JVD. CHEST EXAMINATION:No chest wall tenderness is noted on palpation or with deep breathing. HEART EXAMINATION: Irregular rate and rhythm. ABDOMEN: Soft, nontender. Positive bowel sounds. EXTREMITIES: non-pitting bilateral lower extremity edema and no calf tenderness. NEUROLOGIC EXAMINATION: Patient is awake, alert and oriented x3. ASSESSMENT: Covid 19 Acute hypoxic respiratory failure Abnormal troponin, not suggestive of ACS Chronic systolic congestive heart failure, EF 55% in February 2020, now 30-35% Chronic persistent atrial fibrillation on Eliquis Hypertension Hyperlipidemia Valvular heart disease COPD PLAN: Patient does not appear to be in acute congestive heart failure on exam, symptoms likely related to covid-19 infection. Started on amiodarone 200mg BID on 03/24/21, will continue today, may decrease to daily tomorrow. Will hold off on starting midodrine at this point, monitor patient's blood pressure Continue metoprolol tartrate 75mg TID Continue anticoagulation with Eliquis Continue atorvastatin, PO Lasix, Continue telemetry monitoring Further recommendations pending patient course Nurse practitioner note has been reviewed by physician. Signing provider agrees with the documented findings, assessment, and plan of care. Past Medical History Past Medical History: Atrial Fibrillation, Coronary Artery Disease (CAD), Heart Failure, COPD, Eye Disorder, GERD/Reflux, GI Bleed, Hearing Disorder / Deafness, Hyperlipidemia, Hypertension, Myocardial Infarction (CO), Osteoarthritis (OA), Pneumonia, Renal Disease, Respiratory Disorder, Skin Disorder Additional Past Medical History / Comment(s): Covid+ 03/22/20 at [facility]. Pt diagnosed 03/18/21 with pharyngitis and is on antibiotic, nonischemic cardiomyopathy, pulmonary HTN, bronchitis, O2 at 2L/HS, gastritis, diverticular disease, [place]/aides bilaterally, bilateral eye glaucoma, arthritis bilateral hands, CKD, rosacia, past lumbar slipped disc/pain/improved now. Last Myocardial Infarction Date:: 2017 History of Any Multi-Drug Resistant Organisms: None Reported Past Surgical History: Adenoidectomy, Appendectomy, Heart Catheterization, Hysterectomy, Orthopedic Surgery, Tonsillectomy Additional Past Surgical History / Comment(s): 2017 cardiac cath/treated medically, partial hysterectomy/still has part of L ovary, R knee arthroscopy/torn meniscus, EGD, colonoscopies, bilateral blepharoplasties, bilateral eye cataract removal/laser surgery for glaucoma. Past Anesthesia/Blood Transfusion Reactions: No Reported Reaction Additional Past Anesthesia/Blood Transfusion Reaction / Comment(s): . Past Psychological History: Anxiety Smoking Status: Former smoker Past Alcohol Use History: None Reported Past Drug Use History: None Reported - Past Family History Brother(s) Additional Family Medical History / Comment(s): Patient had 3 brothers and one is living and 93 years of age and [place] with history of Alzheimer's dementia, coronary artery disease, CHF, A. fib, COPD. Patient has 2 brothers that have passed one from alcoholism and one from a traumatic head injury from a fall. Sister(s) Additional Family Medical History / Comment(s): Patient has one sister that of ovarian cancer. Patient has one son that from alcoholic complications. Father Family Medical History: Cancer Additional Family Medical History / Comment(s): Father at age 77yrs of cancer which pt believes may have started in his throat. Mother Family Medical History: Dementia Additional Family Medical History / Comment(s): Mother at age 95yrs. She was very healthy most of her life- she had dementia at the very end of her life. Medications and Allergies Home Medications Medication Instructions Recorded Confirmed Type Fluticasone/Salmeterol [Advair 1 puff INHALATION RT-BID 03/25/16 03/28/21 History 250-50 Diskus] Furosemide [Lasix] 40 mg PO BID 08/19/16 03/28/21 History Tiotropium 18 Mcg/Puff [Spiriva] 1 cap INHALATION RT-DAILY 08/19/16 03/28/21 History Cholecalciferol (Vitamin D3) 2,000 unit PO DAILY 04/26/17 03/28/21 History [Vitamin D3] LORazepam [Ativan] 1 mg PO HS 04/26/17 03/28/21 History Ferrous Sulfate [Iron (65 MG 325 mg PO DAILY 07/27/17 03/28/21 History Elemental)] Albuterol Inhaler [Ventolin Hfa 1 puff INHALATION RT-QID #1 gm 03/26/21 03/28/21 Rx Inhaler] Apixaban [Eliquis] 2.5 mg PO BID #60 tablet 03/26/21 03/28/21 Rx Atorvastatin [Lipitor] 20 mg PO HS #30 tab 03/26/21 03/28/21 Rx Metoprolol Tartrate [Lopressor] 75 mg PO TID #270 tab 03/26/21 03/28/21 Rx Amiodarone [Cordarone] See Taper PO DIRECTED 03/28/21 03/28/21 History Allergies Allergy/AdvReac Type Severity Reaction Status Date / Time amoxicillin [From Augmentin] Allergy Unknown Verified 03/28/21 12:36 cefuroxime axetil Allergy Unknown Verified 03/28/21 12:36 [From Ceftin] clavulanic acid Allergy Unknown Verified 03/28/21 12:36 [From Augmentin] Physical Exam Vitals: Vital Signs Temp Pulse Resp BP Pulse Ox 03/29/21 06:05 99 18 103/88 95 03/29/21 04:32 99 18 89/59 93 L 03/29/21 03:10 108 H 18 90/64 93 L 03/29/21 00:54 109 H 18 102/60 93 L 03/28/21 23:36 110 H 16 102/59 95 03/28/21 21:29 98.0 F 106 H 16 106/67 93 L 03/28/21 19:37 97.9 F 110 H 16 100/69 96 03/28/21 18:59 108 H 18 95/73 95 03/28/21 18:00 97.1 F L 110 H 18 72/57 93 L 03/28/21 15:08 104 H 16 98/71 92 L 03/28/21 13:42 108 H 24 104/71 98 03/28/21 11:57 97.1 F L 84 18 99/53 97 Results 03/28/21 12:45 03/29/21 06:31 Cardiac Enzymes 03/28/21 03/28/21 03/28/21 Range/Units 12:45 12:45 16:09 AST 51 H (14-36) U/L Lactate Dehydrogenase (313-618) U/L Troponin I 0.092 H* 0.088 H* (0.000-0.034) ng/mL 03/28/21 03/28/21 Range/Units 18:17 18:17 AST (14-36) U/L Lactate Dehydrogenase 774 H (313-618) U/L Troponin I 0.088 H* (0.000-0.034) ng/mL Coagulation 03/28/21 Range/Units 12:45 PT 12.1 H (9.0-12.0) sec APTT 24.8 (22.0-30.0) sec CBC 03/28/21 Range/Units 12:45 WBC 7.2 (3.8-10.6) k/uL RBC 4.09 (3.80-5.40) m/uL Hgb 13.1 (11.4-16.0) gm/dL Hct 40.0 (34.0-46.0) % Plt Count 258 (150-450) k/uL Comprehensive Metabolic Panel 03/28/21 Range/Units 12:45 Sodium 132 L (137-145) mmol/L Potassium 3.8 (3.5-5.1) mmol/L Chloride 89 L (98-107) mmol/L Carbon Dioxide 38 H (22-30) mmol/L BUN 44 H (7-17) mg/dL Creatinine 1.29 H (0.52-1.04) mg/dL Glucose 99 (74-99) mg/dL Calcium 8.8 (8.4-10.2) mg/dL AST 51 H (14-36) U/L ALT 64 H (4-34) U/L Alkaline Phosphatase 72 (38-126) U/L Total Protein 6.4 (6.3-8.2) g/dL Albumin 3.7 (3.5-5.0) g/dL Current Medications Generic Name Dose Route Start Last Admin Trade Name Freq PRN Reason Stop Dose Admin Acetaminophen 650 mg 03/28/21 14:34 03/28/21 15:10 Acetaminophen Tab 325 Mg Tab PO 650 mg Q6HR PRN Administration Mild Pain or Fever > 100.5 Albuterol Sulfate 1 puff 03/28/21 20:00 03/28/21 19:15 Albuterol Hfa Inhaler INHALATION 1 puff RT-QID JORDY Administration Amiodarone HCl 200 mg 03/28/21 21:00 03/28/21 21:22 Amiodarone 200 Mg Tab PO 200 mg BID JORDY Administration Apixaban 2.5 mg 03/28/21 21:00 03/28/21 21:22 Apixaban 2.5 Mg Tablet PO 2.5 mg BID JORDY Administration Protocol Atorvastatin Calcium 20 mg 03/28/21 21:00 03/28/21 21:22 Atorvastatin 20 Mg Tab PO 20 mg HS JORDY Administration Budesonide/Formoterol Fumarate 2 puff 03/28/21 20:00 03/28/21 19:16 Symbicort 80-4.5 Mcg Inhaler INHALATION 2 puff RT-BID JORDY Administration Cholecalciferol 50 mcg 03/29/21 09:00 Cholecalciferol 25 Mcg (1000 Iu) Tablet PO DAILY [facility] Dexamethasone Sodium Phosphate 6 mg 03/28/21 18:15 03/28/21 18:41 Dexamethasone Sod Phosphate 10 Mg/Ml 1 Ml Vial IVP 6 mg DAILY JORDY Administration Furosemide 40 mg 03/29/21 09:00 Furosemide 40 Mg Tab PO BID@0900,1600 [facility] Azithromycin 500 mg/ Sodium 250 mls @ 250 mls/hr 03/28/21 18:15 03/28/21 21:23 Chloride IVPB 250 mls/hr DAILY@1800 [facility] Administration Lorazepam 1 mg 03/28/21 21:00 03/28/21 21:22 Lorazepam 1 Mg Tab PO 1 mg HS [facility] Administration Metoprolol Tartrate 75 mg 03/28/21 22:00 03/29/21 00:57 Metoprolol Tartrate 25 Mg Tab PO 75 mg TID [facility] Administration Midodrine 10 mg 03/29/21 07:30 03/29/21 06:43 Midodrine 5 Mg Tab PO 10 mg AC-TID [facility] Administration Naloxone HCl 0.2 mg 03/28/21 14:34 Naloxone 0.4 Mg/Ml 1 Ml Vial IV Q2M PRN Opioid Reversal Tiotropium [place] 2 puff 03/29/21 08:00 Tiotropium 2.5 Mcg Inhaler INHALATION RT-DAILY [facility] 03/28/21 12:45 03/28/21 12:45
[2021-03-29] MEDS: ACETAMINOPHEN TAB 325 MG TAB PO PRN (15:28)
--- NOTE | 2021-03-29 16:16 | P.PN ---
Subjective Progress Note Date: 03/29/21 HISTORY OF PRESENT ILLNESS This is an 85-year-old female patient of Dr. Wills and Dr. Pagan with past medic al history of chronic persistent atrial fibrillation, chronic systolic heart failure, pulmonary hypertension, COPD with chronic hypoxic respiratory failure on home O2 at 3 L as needed, hypertension, hyperlipidemia, chronic kidney disease stage III, generalized osteoarthritis She was admitted, 03/22/2021, discharged 03/26/2021, secondary to acute Covid patient has been vaccinated, however she is missing her booster shot. For which she is due for. She was admitted with acute interstitial pneumonia, coronary virus was positive, on 03/22/2020, when she presented with cough shortness of breath, fever, A. fib with RVR. At that time, echocardiogram was 30-35%, with mild AR, moderate MR, severe [place] proBNP [place] 9570 lactic acid was 1.5, troponin was 0.067. She was managed for this acute Covid, and the A. fib with RVR, for which she received Cardizem drip, amiodarone was 3 titrated up, along with the Lopressor. Patient was subsequently discharged to home, with home therapy, however patient is weaker than usual, cannot manage on her own, despite visiting nurses assisting with her care. She was discharged on 3 L O2 nasal cannula, with a discharge creatinine of 1.4, BUN of 51, hemoglobin of 11.1. Patient lives alone, has increasing weakness, no falls, has some shortness of breath with exertion, no chest pain, patient denies any new edema In the emergency room, she was slightly hyponatremic 132, CO2 is worse, 38, creatinine 1.24, BUN 44, admission elevated at 2.4, total bilirubin is elevated at 1.5, AST and ALT, I 51 and 64, respectively which is better than previous. Troponins elevated at 0.092, and 0.088, as previous. Urinalysis negative, INR of 1.2, no d-dimer is done chest x-ray, correlated for CHF, with diffuse interstitial pattern, more confluent density in the right upper lobe, small bilateral effusion, heart is enlarged, diffuse osteopenia, cardiomegaly and COPD changes. Consult with pulmonary, Dr. Torres, with PT OT, might need to be reevaluated for thromboembolic pulmonary phenomenon, check for d-dimer, might need CPAP protocol, however patient is already oneliquis 0.5 mg twice a day. If d-dimer is elevated, we'll going to proceed with Doppler legs, might need VQ scan. Heart rate patient's between 84-104, pulse oximetry 92-98% between 2-3 L nasal cannula consult with social work, PT OT and most likely would need subacute rehab 03/29: Patient has been seen and followed by cardiology regarding abnormal troponin, acute coronary syndrome has been ruled out. Patient has been continued on anticoagulation with eliquis for atrial fibrillation. Consult with Dr. Fox has been added and repeat chest x-ray ordered for tomorrow. Patient states she did not sleep last night and seems quite anxious today. Pulse ox is 95% on 3 and half liters, afebrile, heart rate 101, blood pressure 116/56. Repeat blood work reveals sodium 135, potassium 4.6, chloride 93, CO2 38, BUN 37 and creatinine 1.06. REVIEW OF SYSTEMS Constitutional: No fever, no chills, no night sweats. No weight change. No weakness, fatigue or lethargy. No daytime sleepiness. EENT: No headache. No blurred vision or double vision, no loss of vision. No loss of Hearing, no ringing in the ears, no dizziness. No nasal drainage or congestion. No epistaxis. No sore throat. Lungs: No shortness of breath, cough, no sputum production. No wheezing. Cardiovascular: No chest pain, no lower extremity edema. No palpitations. No paroxysmal nocturnal dyspnea. No orthopnea. No lightheadedness or dizziness. No syncopal episodes. Abdominal: No abdominal pain. No nausea, vomiting. No diarrhea. No constipation. No bloody or tarry stools. No loss of appetite. Genitourinary: No dysuria, increased frequency, urgency. No urinary retention. Musculoskeletal: No myalgias. No muscle weakness, no gait dysfunction, no frequent falls. No back pain. No neck pain. Integumentary: No wounds, no lesions. No rash or pruritus. No unusual bruising. No change in hair or nails. Neurologic: No aphasia. No facial droop. No change in mentation. No head injury. No headache. No paralysis. No paresthesia. Psychiatric: No depression. No anxiety. No mood swings. Endocrine: No abnormal blood sugars. No weight change. No excessive sweating or thirst. No cold intolerance. PHYSICAL EXAMINATION Gen: This is an 85-year-old male in mild respiratory distress, in the emergency center currently on 4 L nasal cannula HEENT: Head is atraumatic, normocephalic. Pupils equal, round. Sclerae is anicteric. NECK: Supple. No JVD. No lymphadenopathy. No thyromegaly. LUNGS: Clear to auscultation. No wheezes or rhonchi. No intercostal retractions. HEART: Irregular rate and rhythm. No murmur. ABDOMEN: Soft. Bowel sounds are present. No masses. No tenderness. EXTREMITIES: No pedal edema. No calf tenderness. NEUROLOGICAL: Patient is awake, alert and oriented x3. Cranial nerves 2 through 12 are grossly intact. ASSESSMENT AND PLAN 1. Acute on chronic hypoxic respiratory failure secondary to a combination of acute exacerbation of systolic heart failure, with Covid 19 pneumonia, acute exacerbation of COPD, A. fib with minimal RVR. Continue oxygen therapy patient was treated for CHF, and A. fib RVR, and thought that she had incidental Covid in March 22 to 03/26/2021. If this is true, she would be on her sixth day of illness, consult Infectious dis, started on dexamethasone 6 mg, check for d- dimer, Covid cytokine markers, 2. Acute exacerbation of systolic heart failure small bilateral pleural effusion. Continue Lasix 40 mg IV every 12 hours, I&O and daily weights, mo nitor renal function and electrolytes. 3. Covid 19 with hypoxemia, intertial infiltrates vs edema Patient's been started on Ventolin inhaler 4 times daily, vitamin supplements, Symbicort 2 puff s twice daily, dexamethasone 6 mg IV push daily, Spiriva. 4. Acute exacerbation of COPD. Continue Symbicort, Spiriva, albuterol, dexamethasone. 5. Chronic persistent atrial fibrillation presenting with RVR. cONTINUE eliquis 2.5 mg twice daily, Cardizem drip is continued, continue amiodarone 200 mg twice daily and continue Lopressor increased to 75 mg 3 times daily. 6. Transaminitis possibly related to Covid 19. Continue to monitor. 7. Hypertension. Continue Lopressor. 8. Hyperlipidemia. Continue Lipitor 20 mg at bedtime. 9. Chronic kidney disease stage III. Monitor renal function, avoid nephrotoxic agents. 10. Valvular heart disease with mild aortic regurgitation, moderate mitral regurgitation, severe tricuspid regurgitation. 11. Severe pulmonary hypertension. 12. GI prophylaxis. Protonix. 13. DVT prophylaxis. Eliquis. 14. Debility with worsening weakness, consult PT OT, social work, might need subacute rehab, against therapy. Social situation is not ideal, patient lives alone DISCHARGE PLAN Likely return home. Consult with PT in place.. Impression and plan of care have been directed as dictated by the signing physician. Margaret Pulliam nurse practitioner acting as scribe for signing physician. Objective - Vital Signs Vital signs: Vital Signs Temp 97.9 F 03/29/21 08:55 Pulse 112 H 03/29/21 08:55 Resp 18 03/29/21 08:55 BP 113/79 03/29/21 08:55 Pulse Ox 90 L 03/29/21 08:55 Intake & Output 03/28/21 03/29/21 03/29/21 18:59 06:59 18:59 Weight 63.503 kg - Labs CBC & Chem 7: 03/28/21 12:45 03/29/21 06:31 Labs: Abnormal Lab Results - Last 24 Hours (Table) 03/28/21 03/28/21 03/28/21 Range/Units 12:45 12:45 12:45 Lymphocytes # 0.5 L (1.0-4.8) k/uL ESR (0-20) mm/hr PT 12.1 H (9.0-12.0) sec INR 1.2 H (<1.2) Sodium 132 L (137-145) mmol/L Chloride 89 L (98-107) mmol/L Carbon Dioxide 38 H (22-30) mmol/L BUN 44 H (7-17) mg/dL Creatinine 1.29 H (0.52-1.04) mg/dL Glucose (74-99) mg/dL Magnesium 2.4 H (1.6-2.3) mg/dL Total Bilirubin 1.5 H (0.2-1.3) mg/dL AST 51 H (14-36) U/L ALT 64 H (4-34) U/L Lactate Dehydrogenase (313-618) U/L Troponin I (0.000-0.034) ng/mL C-Reactive Protein (<1.0) mg/dL 03/28/21 03/28/21 03/28/21 Range/Units 12:45 16:09 18:17 Lymphocytes # (1.0-4.8) k/uL ESR (0-20) mm/hr PT (9.0-12.0) sec INR (<1.2) Sodium (137-145) mmol/L Chloride (98-107) mmol/L Carbon Dioxide (22-30) mmol/L BUN (7-17) mg/dL Creatinine (0.52-1.04) mg/dL Glucose (74-99) mg/dL Magnesium (1.6-2.3) mg/dL Total Bilirubin (0.2-1.3) mg/dL AST (14-36) U/L ALT (4-34) U/L Lactate Dehydrogenase (313-618) U/L Troponin I 0.092 H* 0.088 H* 0.088 H* (0.000-0.034) ng/mL C-Reactive Protein (<1.0) mg/dL 03/28/21 03/28/21 03/29/21 Range/Units 18:17 18:17 06:31 Lymphocytes # (1.0-4.8) k/uL ESR 32 H (0-20) mm/hr PT (9.0-12.0) sec INR (<1.2) Sodium 135 L (137-145) mmol/L Chloride 93 L (98-107) mmol/L Carbon Dioxide 38 H (22-30) mmol/L BUN 37 H (7-17) mg/dL Creatinine 1.06 H (0.52-1.04) mg/dL Glucose 173 H (74-99) mg/dL Magnesium (1.6-2.3) mg/dL Total Bilirubin (0.2-1.3) mg/dL AST (14-36) U/L ALT (4-34) U/L Lactate Dehydrogenase 774 H (313-618) U/L Troponin I (0.000-0.034) ng/mL C-Reactive Protein 6.0 H (<1.0) mg/dL
[2021-03-29] MEDS: AZITHROMYCIN 500 MG in SODIUM CHLORIDE 0.9% 250 ML IVPB SCH (20:53)
[2021-03-29] MEDS: MELATONIN 3 MG TABLET PO SCH (20:53)
[2021-03-29] MEDS: ATORVASTATIN 20 MG TAB PO SCH (20:53)
[2021-03-29] MEDS: LORazepam 1 MG TAB PO SCH (20:53)
--- NOTE | 2021-03-29 23:38 | P.CONS ---
History of Present Illness - Reason for Consult Consult date: 03/28/21 covid 19 Requesting physician: Evangelina Pantoja - Chief Complaint weakness x few days - History of Present Illness History of present illness : Patient is a 85-year female who was recently admitted at this facility and was treated for COVID-19 pneumonia patient was not considered to be candidate for remdesivir per pulmonary and the patient was discharged home on March 26, 2021, patient is presented back to the hospital within 48 hours for evaluation of generalized weakness patient seen to be very frustrated as saying that she cannot do anything for herself patient denies having any headache or URI symptoms. Denies having any chest pain no worsening shortness of breath she did have minimal cough not bringing up any sputum no nausea no vomiting no abdominal pain or Diarrhea patient on presentation to the hospital was afebrile patient was mildly hypoxic need for supplemental oxygen currently on 3 L nasal cannula patient did have a normal white count with lymphopenia D-dimer was normal BUN/creatinine is a mildly elevated lipids of the mildly elevated as well as troponin CRP 6.0. Has been negative rosa PCR came back positive blood cultures obtained which are currently pending patient did have a chest x-ray correlate for CHF otherwise considered sedation pneumonia cardiomegaly and COPD infectious disease was consulted for possible COVID might qualify for remdesivir, patient diagnosis was on 03/22/2021 however per pulmonary note from last admission she did have symptoms going on for few days prior to that Review of system: CONSTITUTIONAL: Positive for weakness denies high-grade fever. EYES: No complaint. ENT: No complaint. RESPIRATORY: As per history of present illness. CARDIOVASCULAR: No complaint. GENITOURINARY: No complaint. GASTROINTESTINAL: As per history of present illness. MUSCULOSKELETAL: No complaint. INTEGUMENTARY: No complaint. PSYCHOLOGIC: No complaint. ENDOCRINE: No complaint. NEUROLOGIC: No complaint. Past medical history : Reviewed, documented below Past surgical history : Reviewed, documented below Social history: Reviewed, documented below Medications: Reviewed, as documented below EXAMINATION: Vital sigans= Reviewed and documented below GENERAL DESCRIPTION: Elderly female lying in bed, no distress. No tachypnea or accessory muscle of respiration use. HEENT: Shows Pallor , no scleral icterus. Oral mucous membrane is dry. NECK: Trachea central, no thyromegaly. LUNGS: Unlabored breathing decrease intensity of breath sounds. No wheeze or crackle. HEART: S1, S2, regular rate and rhythm. ABDOMEN: Soft, no tenderness , guarding or rigidity EXTREMITIES: No edema of feet. SKIN: No rash, no masses palpable. NEUROLOGICAL: The patient is awake, alert, oriented x3, mood and affect normal. LABS AND RADIOLOGY: Reviewed results see below Assessment : Patient presented to hospital with generalized weakness which is likely multifactorial in this patient with a recent diagnosis of COVID-19 pneumonia for the patient was admitted to hospital from March 22 through and did not received remdesivir during that admission, patient is currently more than 7 days of symptom onset and would not qualify for remdesivir per [facility] policy clinically no evidence of any secondary bacterial pneumonia patient also have significant elevated BUN and creatinine with a dehydration possibly playing a role in her current symptomatology Plan: 1-patient to continue with Eliquis dexamethasone zinc and ascorbic acid 2-droplet isolation and respiratory support 3-no need for systemic antibiotic therapy We will follow on clinical condition and cultures to further adjust medication if needed Thank you for this consultation we will follow the patient along with you Past Medical History Past Medical History: Atrial Fibrillation, Coronary Artery Disease (CAD), Heart Failure, COPD, Eye Disorder, GERD/Reflux, GI Bleed, Hearing Disorder / Deafness, Hyperlipidemia, Hypertension, Myocardial Infarction (ID), Osteoarthritis (OA), Pneumonia, Renal Disease, Respiratory Disorder, Skin Disorder Additional Past Medical History / Comment(s): Covid+ 03/22/[address] [facility]. Pt diagnosed 03/18/21 with pharyngitis and is on antibiotic, nonischemic cardiomyopathy, pulmonary HTN, bronchitis, O2 at 2L/HS, gastritis, diverticular disease, LA POSTA/aides bilaterally, bilateral eye glaucoma, arthritis bilateral hands, CKD, rosacia, past lumbar slipped disc/pain/improved now. Last Myocardial Infarction Date:: 2016 History of Any Multi-Drug Resistant Organisms: None Reported Past Surgical History: Adenoidectomy, Appendectomy, Heart Catheterization, Hysterectomy, Orthopedic Surgery, Tonsillectomy Additional Past Surgical History / Comment(s): 2017 cardiac cath/treated medically, partial hysterectomy/still has part of L ovary, R knee arthroscopy/torn meniscus, EGD, colonoscopies, bilateral blepharoplasties, bilateral eye cataract removal/laser surgery for glaucoma. Past Anesthesia/Blood Transfusion Reactions: No Reported Reaction Additional Past Anesthesia/Blood Transfusion Reaction / Comm: . Past Psychological History: Anxiety Smoking Status: Former smoker Past Alcohol Use History: None Reported Past Drug Use History: None Reported - Past Family History Brother(s) Additional Family Medical History / Comment(s): Patient had 3 brothers and one is living and 93 years of age and [place] with history of Alzheimer's dementia, coronary artery disease, CHF, A. fib, COPD. Patient has 2 brothers that have passed one from alcoholism and one from a traumatic head injury from a fall. Sister(s) Additional Family Medical History / Comment(s): Patient has one sister that of ovarian cancer. Patient has one son that from alcoholic complications. Father Family Medical History: Cancer Additional Family Medical History / Comment(s): Father at age 77yrs of cancer which pt believes may have started in his throat. Mother Family Medical History: Dementia Additional Family Medical History / Comment(s): Mother at age 95yrs. She was very healthy most of her life- she had dementia at the very end of her life. Medications and Allergies Home Medications Medication Instructions Recorded Confirmed Type Fluticasone/Salmeterol [Advair 1 puff INHALATION RT-BID 03/25/16 03/28/21 History 250-50 Diskus] Furosemide [Lasix] 40 mg PO BID 08/19/16 03/28/21 History Tiotropium 18 Mcg/Puff [Spiriva] 1 cap INHALATION RT-DAILY 08/19/16 03/28/21 History Cholecalciferol (Vitamin D3) 2,000 unit PO DAILY 04/26/17 03/28/21 History [Vitamin D3] LORazepam [Ativan] 1 mg PO HS 04/26/17 03/28/21 History Ferrous Sulfate [Iron (65 MG 325 mg PO DAILY 07/27/17 03/28/21 History Elemental)] Albuterol Inhaler [Ventolin Hfa 1 puff INHALATION RT-QID #1 gm 03/26/21 03/28/21 Rx Inhaler] Apixaban [Eliquis] 2.5 mg PO BID #60 tablet 03/26/21 03/28/21 Rx Atorvastatin [Lipitor] 20 mg PO HS #30 tab 03/26/21 03/28/21 Rx Metoprolol Tartrate [Lopressor] 75 mg PO TID #270 tab 03/26/21 03/28/21 Rx Amiodarone [Cordarone] See Taper PO DIRECTED 03/28/21 03/28/21 History Allergies Allergy/AdvReac Type Severity Reaction Status Date / Time amoxicillin [From Augmentin] Allergy Unknown Verified 03/28/21 12:36 cefuroxime axetil Allergy Unknown Verified 03/28/21 12:36 [From Ceftin] clavulanic acid Allergy Unknown Verified 03/28/21 12:36 [From Augmentin] Physical Exam Vitals: Vital Signs Temp Pulse Resp BP Pulse Ox 03/28/21 16:00 97.1 F L 110 H 18 72/57 93 L 03/28/21 15:08 104 H 16 98/71 92 L 03/28/21 13:42 108 H 24 104/71 98 03/28/21 11:57 97.1 F L 84 18 99/53 97 Intake and Output 03/28/21 03/28/21 03/28/21 06:59 14:59 22:59 Other: Weight 63.503 kg Results CBC & Chem 7: 03/28/21 12:45 03/29/21 06:31 Labs: Abnormal Lab Results - Last 24 Hours (Table) 03/28/21 03/28/21 03/28/21 Range/Units 12:45 12:45 12:45 Lymphocytes # 0.5 L (1.0-4.8) k/uL PT 12.1 H (9.0-12.0) sec INR 1.2 H (<1.2) Sodium 132 L (137-145) mmol/L Chloride 89 L (98-107) mmol/L Carbon Dioxide 38 H (22-30) mmol/L BUN 44 H (7-17) mg/dL Creatinine 1.29 H (0.52-1.04) mg/dL Magnesium 2.4 H (1.6-2.3) mg/dL Total Bilirubin 1.5 H (0.2-1.3) mg/dL AST 51 H (14-36) U/L ALT 64 H (4-34) U/L Troponin I (0.000-0.034) ng/mL 03/28/21 03/28/21 Range/Units 12:45 16:09 Lymphocytes # (1.0-4.8) k/uL PT (9.0-12.0) sec INR (<1.2) Sodium (137-145) mmol/L Chloride (98-107) mmol/L Carbon Dioxide (22-30) mmol/L BUN (7-17) mg/dL Creatinine (0.52-1.04) mg/dL Magnesium (1.6-2.3) mg/dL Total Bilirubin (0.2-1.3) mg/dL AST (14-36) U/L ALT (4-34) U/L Troponin I 0.092 H* 0.088 H* (0.000-0.034) ng/mL
--- NOTE | 2021-03-29 23:40 | P.PN ---
Progress Note - Text Progress Note Date: 03/29/21 REASON FOR FOLLOWUP: . COVID-19 pneumonia INTERVAL HISTORY: The patient remains to be afebrile. The continues to be complaining of feeling weak tired and no energy, but denies having any chest pain she did have a cough that began with sputum no abdominal pain no diarrhea PHYSICAL EXAMINATION: On examination, blood pressure 110/60 with a pulse of 90, temperature 97.9. She is 93% on 3 L nasal cannula . GENERAL DESCRIPTION: General description is an elderly female up in the chair in no distress. RESPIRATORY SYSTEM: Unlabored breathing. Decreased breath sounds at the bases. No wheeze. HEART: S1, S2. Regular rate and rhythm. ABDOMEN: Soft. No tenderness. EXTREMITIES: Some chronic swelling. No redness. LABS: Reviewed DIAGNOSTIC IMPRESSION AND PLAN: Patient presented to hospital with generalized weakness which is multifactorial in this patient have component of dehydration also with COVID-19 pneumonia however symptom has been going on for more than 7 days and did not qualify for remdesivir this admission, patient to continue the current supportive treatment of Eliquis dexamethasone signal ascorbic acid and respiratory support
[2021-03-30] MEDS: ACETAMINOPHEN TAB 325 MG TAB PO PRN (05:12)
--- NOTE | 2021-03-30 07:22 | XR ---
EXAMINATION TYPE: XR chest 1V portable DATE OF EXAM: 03/30/2021 CLINICAL HISTORY: Difficulty breathing and covid progress study. TECHNIQUE: Single AP portable upright view of the chest is obtained. COMPARISON: Chest x-ray from 2 days earlier and older studies. FINDINGS: Persistent bilateral multifocal increased opacities greatest in the periphery. Cardiac ashley houette size is stable and mildly enlarged. Osseous structures are intact. Background chronic emphyse matous change is suspected. IMPRESSION: Mild cardiomegaly with bilateral multifocal increased opacities greatest in the periphery consistent with covid-19 infection are redemonstrated. No significant change from most recent x-ray 2 days earlier.
[2021-03-30 08:38] LABS: Calcium 8.5 mg/dL (8.4-10.2); Potassium 4.2 mmol/L (3.5-5.1)
[2021-03-30] MEDS: ALBUTEROL HFA INHALER INHALATION SCH ×4 (08:39→20:19)
[2021-03-30] MEDS: SYMBICORT 80-4.5 MCG INHALER INHALATION SCH ×2 (08:39→20:19)
[2021-03-30] MEDS: TIOTROPIUM 2.5 MCG INHALER INHALATION SCH (08:39)
[2021-03-30] MEDS: CHOLECALCIFEROL 25 MCG (1000 IU) TABLET PO SCH (09:08)
[2021-03-30] MEDS: DEXAMETHASONE SOD PHOSPHATE 10 MG/ML 1 ML VIAL IVP SCH (09:08)
[2021-03-30] MEDS: FUROSEMIDE 40 MG TAB PO SCH ×2 (09:08→17:21)
[2021-03-30] MEDS: AMIODARONE 200 MG TAB PO SCH (09:08)
[2021-03-30] MEDS: APIXABAN 2.5 MG TABLET PO SCH ×2 (09:08→20:15)
[2021-03-30] MEDS: METOPROLOL TARTRATE 25 MG TAB PO SCH ×3 (09:08→20:15)
--- NOTE | 2021-03-30 10:44 | P.DS ---
Providers Date of admission: 03/29/21 12:28 Expected date of discharge: 04/01/21 Attending physician: Evangelina Pantoja Consults: 03/28/21 14:36 Consult Physician Routine Consulting Provider: Stevenson Ramirez Consult Reason/Comments: TRop elevated, chf Do you want consulting provider notified?: Yes 03/28/21 18:00 Consult Physician Routine Consulting Provider: Andrea Fox Consult Reason/Comments: covid incidental from03/22, might qualify for remdesivir Do you want consulting provider notified?: Yes Primary care physician: [facility] Course: HISTORY OF PRESENT ILLNESS This is an 85-year-old female patient of Dr. Wills and Dr. Pagan with past medical history of chronic persistent atrial fibrillation, chronic systolic heart failure, pulmonary hypertension, COPD with chronic hypoxic respiratory failure on home O2 at 3 L as needed, hypertension, hyperlipidemia, chronic kidney disease stage III, generalized osteoarthritis She was admitted, 03/22/2021, discharged 03/26/2021, secondary to acute Covid patient has been vaccinated, however she is missing her booster shot. For which she is due for. She was admitted with acute interstitial pneumonia, coronary virus was positive, on 03/22/2020, when she presented with cough shortness of breath, fever, A. fib with RVR. At that time, echocardiogram was 30-35%, with mild AR, moderate MR, severe TR proBNP of 9570 lactic acid was 1.5, troponin was 0.067. She was managed for this acute Covid, and the A. fib with RVR, for which she received Cardizem drip, amiodarone was 3 titrated up, along with the Lopressor. Patient was subsequently discharged to home, with home therapy, however patient is weaker than usual, cannot manage on her own, despite visiting nurses assisting with her care. She was discharged on 3 L O2 nasal cannula, with a discharge creatinine of 1.4, BUN of 51, hemoglobin of 11.1. Patient lives alone, has increasing weakness, no falls, has some shortness of breath with exertion, no chest pain, patient denies any new edema In the emergency room, she was slightly hyponatremic 132, CO2 is worse, 38, creatinine 1.24, BUN 44, admission elevated at 2.4, total bilirubin is elevated at 1.5, AST and ALT, I 51 and 64, respectively which is better than previous. Troponins elevated at 0.092, and 0.088, as previous. Urinalysis negative, INR of 1.2, no d-dimer is done chest x-ray, correlated for CHF, with diffuse interstitial pattern, more confluent density in the right upper lobe, small bilateral effusion, heart is enlarged, diffuse osteopenia, cardiomegaly and COPD changes. Consult with pulmonary, Dr. Torres, with PT OT, might need to be reevaluated for thromboembolic pulmonary phenomenon, check for d-dimer, might need CPAP protocol, however patient is already oneliquis 0.5 mg twice a day. If d-dimer is elevated, we'll going to proceed with Doppler legs, might need VQ scan. Heart rate patient's between 84-104, pulse oximetry 92-98% between 2-3 L nasal cannula consult with social work, PT OT and most likely would need subacute rehab 03/29: Patient has been seen and followed by cardiology regarding abnormal troponin, acute coronary syndrome has been ruled out. Patient has been continued on anticoagulation with eliquis for atrial fibrillation. Consult with Dr. Fox has been added and repeat chest x-ray ordered for tomorrow. Patient states she did not sleep last night and seems quite anxious today. Pulse ox is 95% on 3 and half liters, afebrile, heart rate 101, blood pressure 116/56. Repeat blood work reveals sodium 135, potassium 4.6, chloride 93, CO2 38, BUN 37 and creatinine 1.06. 03/30: Repeat chest x-ray today reveals mild cardiomegaly with bilateral multifocal increased opacities greater in the periphery consistent with Covid 19 infection redemonstrated. No significant change from most recent x-ray 2 days ago. Patient has been seen by Dr. Fox and recommend continuing current supportive treatment. Patient complains of feeling weak and tired. She does have a cough. No chest pain. Discharge plan if for subacute rehab at all 3 facilities have no beds available until Sunday. Social work is following and will plan discharge if beds open up prior to Sunday. PO 93-95% on 3 L nasal cannula. 03/31: She remains afebrile, heart rate 94, blood pressure 122/81, pulse ox 91% on 3 L nasal cannula. Sodium 134, potassium 4.2, chloride 94, CO2 33, BUN 42 and creatinine 1.11. Carotid virus PCR on 03/[address] Fox recommends continuing current medications. No evidence of secondary bacterial pneumonia and no need for systemic antibiotic therapy. Despite a discharge to rehab on Sunday. 04/01: No new concerns from the patient. She's been afebrile, heart rate 114, blood pressure 144/96, segs 92% on [address] Fox is recommended continuing dexamethasone, zinc and vitamin C. Patient has been waiting for bed availability at subacute rehab and one is available today at [facility]. Patient will be discharged to subacute rehab today in stable condition. DISCHARGE DIAGNOSES 1. Acute on chronic hypoxic respiratory failure secondary to a combination of acute exacerbation of systolic heart failure, with Covid 19 pneumonia, acute exacerbation of COPD, A. fib with minimal RVR. 2. Acute exacerbation of systolic heart failure small bilateral pleural effusion. 3. Covid 19 with hypoxemia, intertial infiltrates vs edema 4. Acute exacerbation of COPD. 5. Chronic persistent atrial fibrillation presenting with RVR. 6. Transaminitis possibly related to Covid 19. 7. Hypertension. 8. Hyperlipidemia. 9. Chronic kidney disease stage III. 10. Valvular heart disease with mild aortic regurgitation, moderate mitral regurgitation, severe tricuspid regurgitation. 11. Severe pulmonary hypertension. 12. Debility with worsening weakness, consult PT OT, social work, might need subacute rehab, against therapy. Social situation is not ideal, patient lives alone DISCHARGE PLAN [facility] Greater than 35 minutes was utilized and coordinating patient's discharge. Impression and plan of care have been directed as dictated by the signing physician. Margaret Pulliam nurse practitioner acting as scribe for signing physician. Patient Condition at Discharge: Stable Plan - Discharge Summary Discharge Rx Participant: No New Discharge Prescriptions: New Amiodarone [Cordarone] 200 mg PO DAILY tab Metoprolol Tartrate [Lopressor] 75 mg PO TID tab Azithromycin [Zithromax] 500 mg PO DAILY@1800 #5 tab Melatonin 6 mg PO HS tablet Dexamethasone [Decadron] 6 mg PO DAILY #5 tablet Continue Fluticasone/Salmeterol [Advair 250-50 Diskus] 1 puff INHALATION RT-BID Furosemide [Lasix] 40 mg PO BID Tiotropium 18 Mcg/Puff [Spiriva] 1 cap INHALATION RT-DAILY Cholecalciferol (Vitamin D3) [Vitamin D3] 2,000 unit PO DAILY Ferrous Sulfate [Iron (65 MG Elemental)] 325 mg PO DAILY Atorvastatin [Lipitor] 20 mg PO HS #30 tab Albuterol Inhaler [Ventolin Hfa Inhaler] 1 puff INHALATION RT-QID #1 gm LORazepam [Ativan] 1 mg PO HS #3 tab Apixaban [Eliquis] 2.5 mg PO BID #60 tablet Discontinued Metoprolol Tartrate [Lopressor] 75 mg PO TID #270 tab Amiodarone [Cordarone] See Taper PO DIRECTED Discharge Medication List Fluticasone/Salmeterol [Advair 250-50 Diskus] 1 puff INHALATION RT-BID 03/25/16 [History] Furosemide [Lasix] 40 mg PO BID 08/19/16 [History] Tiotropium 18 Mcg/Puff [Spiriva] 1 cap INHALATION RT-DAILY 08/19/16 [History] Cholecalciferol (Vitamin D3) [Vitamin D3] 2,000 unit PO DAILY 04/26/17 [History] Ferrous Sulfate [Iron (65 MG Elemental)] 325 mg PO DAILY 07/27/17 [History] Albuterol Inhaler [Ventolin Hfa Inhaler] 1 puff INHALATION RT-QID #1 gm 03/26/21 [Rx] Apixaban [Eliquis] 2.5 mg PO BID #60 tablet 03/26/21 [Rx] Atorvastatin [Lipitor] 20 mg PO HS #30 tab 03/26/21 [Rx] Amiodarone [Cordarone] 200 mg PO DAILY tab 03/30/21 [Rx] Dexamethasone [Decadron] 6 mg PO DAILY #5 tablet 03/30/21 [Rx] LORazepam [Ativan] 1 mg PO HS #3 tab 03/30/21 [Rx] Melatonin 6 mg PO HS tablet 03/30/21 [Rx] Azithromycin [Zithromax] 500 mg PO DAILY@1800 #5 tab 04/01/21 [Rx] Metoprolol Tartrate [Lopressor] 75 mg PO TID tab 04/01/21 [Rx] Follow up Appointment(s)/Referral(s): Yobany Pagan MD [STAFF PHYSICIAN] - 3 Weeks Otto Wills MD [Primary Care Provider] - 1 Week (after discharge from [facility]) Discharge Disposition: TRANSFER TO SNF/ECF
--- NOTE | 2021-03-30 12:54 | P.PN ---
Subjective Progress Note Date: 03/30/21 HISTORY OF PRESENT ILLNESS This is an 85-year-old female patient of Dr. Wills and Dr. Pagan with past medic al history of chronic persistent atrial fibrillation, chronic systolic heart failure, pulmonary hypertension, COPD with chronic hypoxic respiratory failure on home O2 at 3 L as needed, hypertension, hyperlipidemia, chronic kidney disease stage III, generalized osteoarthritis She was admitted, 03/22/2021, discharged 03/26/2021, secondary to acute Covid patient has been vaccinated, however she is missing her booster shot. For which she is due for. She was admitted with acute interstitial pneumonia, coronary virus was positive, on 03/22/2020, when she presented with cough shortness of breath, fever, A. fib with RVR. At that time, echocardiogram was 30-35%, with mild AR, moderate MR, severe TR proBNP of 9570 lactic acid was 1.5, troponin was 0.067. She was managed for this acute Covid, and the A. fib with RVR, for which she received Cardizem drip, amiodarone was 3 titrated up, along with the Lopressor. Patient was subsequently discharged to home, with home therapy, however patient is weaker than usual, cannot manage on her own, despite visiting nurses assisting with her care. She was discharged on 3 L O2 nasal cannula, with a discharge creatinine of 1.4, BUN of 51, hemoglobin of 11.1. Patient lives alone, has increasing weakness, no falls, has some shortness of breath with exertion, no chest pain, patient denies any new edema In the emergency room, she was slightly hyponatremic 132, CO2 is worse, 38, creatinine 1.24, BUN 44, admission elevated at 2.4, total bilirubin is elevated at 1.5, AST and ALT, I 51 and 64, respectively which is better than previous. Troponins elevated at 0.092, and 0.088, as previous. Urinalysis negative, INR of 1.2, no d-dimer is done chest x-ray, correlated for CHF, with diffuse interstitial pattern, more confluent density in the right upper lobe, small bilateral effusion, heart is enlarged, diffuse osteopenia, cardiomegaly and COPD changes. Consult with pulmonary, Dr. Torres, with PT OT, might need to be reevaluated for thromboembolic pulmonary phenomenon, check for d-dimer, might need CPAP protocol, however patient is already oneliquis 0.5 mg twice a day. If d-dimer is elevated, we'll going to proceed with Doppler legs, might need VQ scan. Heart rate patient's between 84-104, pulse oximetry 92-98% between 2-3 L nasal cannula consult with social work, PT OT and most likely would need subacute rehab 03/29: Patient has been seen and followed by cardiology regarding abnormal troponin, acute coronary syndrome has been ruled out. Patient has been continued on anticoagulation with eliquis for atrial fibrillation. Consult with Dr. Fox has been added and repeat chest x-ray ordered for tomorrow. Patient states she did not sleep last night and seems quite anxious today. Pulse ox is 95% on 3 and half liters, afebrile, heart rate 101, blood pressure 116/56. Repeat blood work reveals sodium 135, potassium 4.6, chloride 93, CO2 38, BUN 37 and creatinine 1.06. 03/30: Repeat chest x-ray today reveals mild cardiomegaly with bilateral multifocal increased opacities greater in the periphery consistent with Covid 19 infection redemonstrated. No significant change from most recent x-ray 2 days ago. Patient has been seen by Dr. Fox and recommend continuing current supportive treatment. Patient complains of feeling weak and tired. She does have a cough. No chest pain. Discharge plan if for subacute rehab at all 3 facilities have no beds available until Sunday. Social work is following and will plan discharge if beds open up prior to Sunday. PO 93-95% on 3 L nasal cannula. REVIEW OF SYSTEMS Constitutional: No fever, no chills, no night sweats. No weight change. Reports weakness, Reports fatigue. No daytime sleepiness. EENT: No headache. No blurred vision or double vision, no loss of vision. No loss of Hearing, no ringing in the ears, no dizziness. No nasal drainage or congestion. No epistaxis. No sore throat. Lungs: No shortness of breath, Reportscough, no sputum production. No wheezing. Cardiovascular: No chest pain, no lower extremity edema. No palpitations. No paroxysmal nocturnal dyspnea. No orthopnea. No lightheadedness or dizziness. No syncopal episodes. Abdominal: No abdominal pain. No nausea, vomiting. No diarrhea. No constipation. No bloody or tarry stools. No loss of appetite. Genitourinary: No dysuria, increased frequency, urgency. No urinary retention. Musculoskeletal: No myalgias. No muscle weakness, no gait dysfunction, no frequent falls. No back pain. No neck pain. Integumentary: No wounds, no lesions. No rash or pruritus. No unusual bruis ing. No change in hair or nails. Neurologic: No aphasia. No facial droop. No change in mentation. No head injury. No headache. No paralysis. No paresthesia. Psychiatric: No depression. Noted anxiety. No mood swings. Endocrine: No abnormal blood sugars. No weight change. No excessive sweating or thirst. No cold intolerance. PHYSICAL EXAMINATION Gen: This is an 85-year-old female in no respiratory distress, resting in bed on 3 L nasal cannula HEENT: Head is atraumatic, normocephalic. Pupils equal, round. Sclerae is anicteric. NECK: Supple. No JVD. No lymphadenopathy. No thyromegaly. LUNGS: Clear to auscultation. No wheezes or rhonchi. No intercostal retractions. HEART: Irregular rate and rhythm. No murmur. ABDOMEN: Soft. Bowel sounds are present. No masses. No tenderness. EXTREMITIES: No pedal edema. No calf tenderness. NEUROLOGICAL: Patient is awake, alert and oriented x3. Cranial nerves 2 through 12 are grossly intact. ASSESSMENT AND PLAN 1. Acute on chronic hypoxic respiratory failure secondary to a combination of acute exacerbation of systolic heart failure, with Covid 19 pneumonia, acute exacerbation of COPD, A. fib with minimal RVR. Continue oxygen therapy patient was treated for CHF, and A. fib RVR, and thought that she had incidental Covid in March 22 to 03/26/2021. Continue on dexamethasone 6 mg, check for d-dimer, Covid cytokine markers, 2. Acute exacerbation of systolic heart failure small bilateral pleural effusion. Continue Lasix 40 mg IV every 12 hours, I&O and daily weights, monitor renal function and electrolytes. 3. Covid 19 with hypoxemia, intertial infiltrates vs edema Patient's been started on Ventolin inhaler 4 times daily, vitamin supplements, Symbicort 2 puffs twice daily, dexamethasone 6 mg IV push daily, Spiriva. 4. Acute exacerbation of COPD. Continue Symbicort, Spiriva, albuterol, dexamethasone. 5. Chronic persistent atrial fibrillation presenting with RVR. cONTINUE eliquis 2.5 mg twice daily, continue amiodarone 200 mg daily and continue Lopressor 75 mg 3 times daily. 6. Transaminitis possibly related to Covid 19. Continue to monitor. 7. Hypertension. Continue Lopressor. 8. Hyperlipidemia. Continue Lipitor 20 mg at bedtime. 9. Chronic kidney disease stage III. Monitor renal function, avoid nephrotoxic agents. 10. Valvular heart disease with mild aortic regurgitation, moderate mitral regurgitation, severe tricuspid regurgitation. 11. Severe pulmonary hypertension. 12. GI prophylaxis. Protonix. 13. DVT prophylaxis. Eliquis. 14. Debility with worsening weakness, consult PT OT, social work, might need subacute rehab, against therapy. Social situation is not ideal, patient lives alone DISCHARGE PLAN Subacute rehab once bed is available Impression and plan of care have been directed as dictated by the signing physician. Margaret Pulliam nurse practitioner acting as scribe for signing physician. Objective - Vital Signs Vital signs: Vital Signs Temp 97.6 F 03/30/21 08:00 Pulse 97 03/30/21 08:00 Resp 18 03/30/21 08:00 BP 101/58 03/30/21 08:00 Pulse Ox 93 L 03/30/21 08:00 Intake & Output 03/29/21 03/30/21 03/30/21 18:59 06:59 18:59 Intake Total 250 Balance 250 Weight 63.503 kg Intake: Intake, IV Titration 250 Amount Azithromycin 500 mg In 250 Sodium Chloride 0.9% 250 ml @ 250 mls/hr IVPB DAILY@1800 [facility] Rx#: [id number] Other: # Voids 1 - Labs CBC & Chem 7: 03/28/21 12:45 03/30/21 07:18 Labs: Abnormal Lab Results - Last 24 Hours (Table) 03/29/21 03/30/21 Range/Units 16:06 07:18 Sodium 134 L (137-145) mmol/L Chloride 94 L (98-107) mmol/L Carbon Dioxide 33 H (22-30) mmol/L BUN 42 H (7-17) mg/dL Creatinine 1.11 H (0.52-1.04) mg/dL Glucose 144 H (74-99) mg/dL Coronavirus (PCR) Detected A (Not Detectd) Microbiology - Last 24 Hours (Table) 03/28/21 19:07 Blood Culture - Preliminary Blood No Growth after 24 hours 03/28/21 19:07 Blood Culture - Preliminary Blood No Growth after 24 hours
--- NOTE | 2021-03-30 13:55 | CDI ---
Documentation Clarification Form Date: 03/30/2021 01:44:32 PM From: Dinah Hernadez CCS, CCDS Admit Date: 03/29/2021 12:28:00 PM Patient Name: Martha Cagle Visit Number: [id number] Discharge Date: ATTENTION: The Clinical Documentation Specialists (CDI) and [facility] Coding Staff appreciate your assistance in clarifying documentation. Please respond to the clarification below the line at the bottom and electronically sign. The CDI & [facility] Coding staff will review the response and follow-up if needed. Please note: Queries are made part of the Legal Health Record. If you have any questions, please contact the author of this message via ITS. Dr. Evangelina Pantoja: Conflicting documentation has been found in the medical record regarding the diagnosis of CHF. Per the 03/28 Attending History & Physical, subsequent Progress Note and the 03/30 Discharge Summary: Acute Exacerbation of Systolic Heart Failure is documented. Per the 03/29 Cardiology Consult and subsequent Progress Note: Chronic Systolic Heart Failure. Does not appear to be in acute CHF on exam, symptoms likely related to COVID 19 infection. As attending physician, please provide clarification. History/Risk Factors per the 03/28 H/P: Atrial Fibrillation, CAD, CHF, COPD, GERD, GI Bleed, [place], Hyperlipidemia, Hypertension, IA, OA Bilateral Hands, CKD, Pulmonary Hypertension. Clinical Indicators: Presented to the ED on 03/28 with Weakness, Hypoxia. Patient was recently discharged to home on Home O2 after admission for COVID Pneumonia. Admit with COVID 19, Hypoxia, Elevated Troponin 03/28 VS: T 97.1, P 84 - 108, R 18 (cough), BP 99/53, PO 97 2Lnc, BMI: 22.6 03/28 LAB: Lymph 0.5, ESR 32; PT 12.1, INR 1.2; Na 132, Cl 89, CO2 38, BUN 44, Cr 1.29, Mag 2.4, T Bili 1.5, AST 51, ALT 64, LDH 774, Troponin 0.092, 0.088; CRP 6.0. BNP: not done. 03/28: Not tested for COVID 03/29: COVID test positive 03/28 CXR: Correlate for CHF otherwise consider interstitial pneumonia, Cardiomegaly & COPD. 03/30 CXR: Mild cardiomegaly with bilateral multifocal increased opacities greatest in the periphery consistent with COVID 19 infection, redemonstrated. Treatment 03/28: Telemetry, O2 2Lnc, Blood culture, INH Ventolin QID, po Zithromax, INH Symbicort BID, Vit D3, IV Decadron Daily, po Lasix 40 mg BID. Please clarify which diagnosis is most appropriate: [ ] Acute on Chronic Systolic Heart Failure [ ] Chronic Systolic Heart Failure [ ] Other (please specify) [ ] Unable to determine (Template Last Revised: May 2020) 04/04 Query response documented in 04/01 Discharge Summary: Acute Exacerbation Systolic Heart Failure. (CDS: EDELMIRA) EZEKIEL
[2021-03-30] MEDS: AZITHROMYCIN 500 MG in SODIUM CHLORIDE 0.9% 250 ML IVPB SCH (17:21)
[2021-03-30] MEDS: ATORVASTATIN 20 MG TAB PO SCH (20:14)
[2021-03-30] MEDS: LORazepam 1 MG TAB PO SCH (20:15)
[2021-03-30] MEDS: MELATONIN 3 MG TABLET PO SCH (20:15)
--- NOTE | 2021-03-30 22:53 | PN ---
PROGRESS NOTE DATE OF SERVICE: 03/30/2021 REASON FOR FOLLOW UP: Covid 19 pneumonia. INTERVAL HISTORY: Patient is afebrile. The patient is breathing comfortably. The patient denies having any chest pain. She did have a cough but no worsening though. No nausea, vomiting. No abdominal pain. No diarrhea. PHYSICAL EXAMINATION: Blood pressure is 114/75 with a pulse of 110, temp 97.9. She is 91% on 3 L nasal cannula. General description is an elderly female up in the bed in no distress. Respiratory system: Unlabored breathing, decreased intensity of breath sounds. No wheeze. Heart S1, S2. Regular rate and rhythm. Abdomen soft. No tenderness. Extremities: No edema of the feet. LABS: BUN is 4, DIAGNOSTIC IMPRESSION AND PLAN: Patient with acute COVID-19 pneumonia in this patient with slow clinical improvement. The patient is currently on Eliquis, dexamethasone, zinc, ascorbic acid, to continue along with respiratory support and monitor clinical course closely. No evidence of any secondary bacterial pneumonia and no need for systemic antibiotic therapy. MMODL / IJN: [id number] /
[2021-03-31] MEDS: ACETAMINOPHEN TAB 325 MG TAB PO PRN (00:05)
[2021-03-31] MEDS: TIOTROPIUM 2.5 MCG INHALER INHALATION SCH (08:10)
[2021-03-31] MEDS: SYMBICORT 80-4.5 MCG INHALER INHALATION SCH ×2 (08:10→21:45)
[2021-03-31] MEDS: ALBUTEROL HFA INHALER INHALATION SCH ×4 (08:10→21:45)
[2021-03-31] MEDS: FUROSEMIDE 40 MG TAB PO SCH ×2 (09:18→18:10)
[2021-03-31] MEDS: METOPROLOL TARTRATE 25 MG TAB PO SCH ×3 (09:18→20:46)
[2021-03-31] MEDS: DEXAMETHASONE SOD PHOSPHATE 10 MG/ML 1 ML VIAL IVP SCH (09:18)
[2021-03-31] MEDS: APIXABAN 2.5 MG TABLET PO SCH ×2 (09:18→20:46)
[2021-03-31] MEDS: CHOLECALCIFEROL 25 MCG (1000 IU) TABLET PO SCH (09:18)
[2021-03-31] MEDS: AMIODARONE 200 MG TAB PO SCH (09:18)
--- NOTE | 2021-03-31 14:06 | P.PN ---
Subjective Progress Note Date: 03/31/21 HISTORY OF PRESENT ILLNESS This is an 85-year-old female patient of Dr. Wills and Dr. Pagan with past medic al history of chronic persistent atrial fibrillation, chronic systolic heart failure, pulmonary hypertension, COPD with chronic hypoxic respiratory failure on home O2 at 3 L as needed, hypertension, hyperlipidemia, chronic kidney disease stage III, generalized osteoarthritis She was admitted, 03/22/2021, discharged 03/26/2021, secondary to acute Covid patient has been vaccinated, however she is missing her booster shot. For which she is due for. She was admitted with acute interstitial pneumonia, coronary virus was positive, on 03/22/2020, when she presented with cough shortness of breath, fever, A. fib with RVR. At that time, echocardiogram was 30-35%, with mild AR, moderate MR, severe TR proBNP of 9570 lactic acid was 1.5, troponin was 0.067. She was managed for this acute Covid, and the A. fib with RVR, for which she received Cardizem drip, amiodarone was 3 titrated up, along with the Lopressor. Patient was subsequently discharged to home, with home therapy, however patient is weaker than usual, cannot manage on her own, despite visiting nurses assisting with her care. She was discharged on 3 L O2 nasal cannula, with a discharge creatinine of 1.4, BUN of 51, hemoglobin of 11.1. Patient lives alone, has increasing weakness, no falls, has some shortness of breath with exertion, no chest pain, patient denies any new edema In the emergency room, she was slightly hyponatremic 132, CO2 is worse, 38, creatinine 1.24, BUN 44, admission elevated at 2.4, total bilirubin is elevated at 1.5, AST and ALT, I 51 and 64, respectively which is better than previous. Troponins elevated at 0.092, and 0.088, as previous. Urinalysis negative, INR of 1.2, no d-dimer is done chest x-ray, correlated for CHF, with diffuse interstitial pattern, more confluent density in the right upper lobe, small bilateral effusion, heart is enlarged, diffuse osteopenia, cardiomegaly and COPD changes. Consult with pulmonary, Dr. Torres, with PT OT, might need to be reevaluated for thromboembolic pulmonary phenomenon, check for d-dimer, might need CPAP protocol, however patient is already oneliquis 0.5 mg twice a day. If d-dimer is elevated, we'll going to proceed with Doppler legs, might need VQ scan. Heart rate patient's between 84-104, pulse oximetry 92-98% between 2-3 L nasal cannula consult with social work, PT OT and most likely would need subacute rehab 03/29: Patient has been seen and followed by cardiology regarding abnormal troponin, acute coronary syndrome has been ruled out. Patient has been continued on anticoagulation with eliquis for atrial fibrillation. Consult with Dr. Fox has been added and repeat chest x-ray ordered for tomorrow. Patient states she did not sleep last night and seems quite anxious today. Pulse ox is 95% on 3 and half liters, afebrile, heart rate 101, blood pressure 116/56. Repeat blood work reveals sodium 135, potassium 4.6, chloride 93, CO2 38, BUN 37 and creatinine 1.06. 03/30: Repeat chest x-ray today reveals mild cardiomegaly with bilateral multifocal increased opacities greater in the periphery consistent with Covid 19 infection redemonstrated. No significant change from most recent x-ray 2 days ago. Patient has been seen by Dr. Fox and recommend continuing current supportive treatment. Patient complains of feeling weak and tired. She does have a cough. No chest pain. Discharge plan if for subacute rehab at all 3 facilities have no beds available until Sunday. Social work is following and will plan discharge if beds open up prior to Sunday. PO 93-95% on 3 L nasal cannula. 03/31: She remains afebrile, heart rate 94, blood pressure 122/81, pulse ox 91% on 3 L nasal cannula. Sodium 134, potassium 4.2, chloride 94, CO2 33, BUN 42 and creatinine 1.11. Carotid virus PCR on 03/[address] Fox recommends continuing current medications. No evidence of secondary bacterial pneumonia and no need for systemic antibiotic therapy. Despite a discharge to rehab on Sunday. REVIEW OF SYSTEMS Constitutional: No fever, no chills, no night sweats. No weight change. Reports weakness, Reports fatigue. No daytime sleepiness. EENT: No headache. No blurred vision or double vision, no loss of vision. No loss of Hearing, no ringing in the ears, no dizziness. No nasal drainage or congestion. No epistaxis. No sore throat. Lungs: No shortness of breath-, Reports cough, no sputum production. No wheezing. Cardiovascular: No chest pain, no lower extremity edema. No palpitations. No paroxysmal nocturnal dyspnea. No orthopnea. No lightheadedness or dizziness. No syncopal episodes. Abdominal: No abdominal pain. No nausea, vomiting. No diarrhea. No constipation. No bloody or tarry stools. No loss of appetite. Genitourinary: No dysuria, increased frequency, urgency. No urinary retention. Musculoskeletal: No myalgias. No muscle weakness, no gait dysfunction, no frequent falls. No back pain. No neck pain. Integumentary: No wounds, no lesions. No rash or pruritus. No unusual bruising. No change in hair or nails. Neurologic: No aphasia. No facial droop. No change in mentation. No head injury. No headache. No paralysis. No paresthesia. Psychiatric: No depression. Noted anxiety. No mood swings. Endocrine: No abnormal blood sugars. No weight change. No excessive sweating or thirst. No cold intolerance. PHYSICAL EXAMINATION Gen: This is an 85-year-old female in no respiratory distress, resting in bed on 3 L nasal cannula HEENT: Head is atraumatic, normocephalic. Pupils equal, round. Sclerae is anicteric. NECK: Supple. No JVD. No lymphadenopathy. No thyromegaly. LUNGS: Clear to auscultation. No wheezes or rhonchi. No intercostal retractions. HEART: Irregular rate and rhythm. No murmur. ABDOMEN: Soft. Bowel sounds are present. No masses. No tenderness. EXTREMITIES: No pedal edema. No calf tenderness. NEUROLOGICAL: Patient is awake, alert and oriented x3. Cranial nerves 2 through 12 are grossly intact. ASSESSMENT AND PLAN 1. Acute on chronic hypoxic respiratory failure secondary to a combination of acute exacerbation of systolic heart failure, with Covid 19 pneumonia, acute exacerbation of COPD, A. fib with minimal RVR. Continue oxygen therapy patient was treated for CHF, and A. fib RVR, and thought that she had incidental Covid in March 22 to 03/26/2021. Continue on dexamethasone 6 mg, check for d-dimer, Covid cytokine markers, consult with Dr. Ruddy appreciated. 2. Acute exacerbation of systolic heart failure small bilateral pleural effusion. Continue Lasix 40 mg IV every 12 hours, I&O and daily weights, monitor renal function and electrolytes. 3. Covid 19 with hypoxemia, intertial infiltrates vs edema Patient's been started on Ventolin inhaler 4 times daily, vitamin supplements, Symbicort 2 puffs twice daily, dexamethasone 6 mg IV push daily, Spiriva. 4. Acute exacerbation of COPD. Continue Symbicort, Spiriva, albuterol, dexamethasone. 5. Chronic persistent atrial fibrillation presenting with RVR. cONTINUE eliquis 2.5 mg twice daily, continue amiodarone 200 mg daily and continue Lopressor 75 mg 3 times daily. 6. Transaminitis possibly related to Covid 19. Continue to monitor. 7. Hypertension. Continue Lopressor. 8. Hyperlipidemia. Continue Lipitor 20 mg at bedtime. 9. Chronic kidney disease stage III. Monitor renal function, avoid nephrotoxic agents. 10. Valvular heart disease with mild aortic regurgitation, moderate mitral regurgitation, severe tricuspid regurgitation. 11. Severe pulmonary hypertension. 12. GI prophylaxis. Protonix. 13. DVT prophylaxis. Eliquis. 14. Debility with worsening weakness, consult PT OT, social work, might need subacute rehab, against therapy. Social situation is not ideal, patient lives alone DISCHARGE PLAN Subacute rehab once bed is available, most likely on Sunday Impression and plan of care have been directed as dictated by the signing physician. Margaret Pulliam nurse practitioner acting as scribe for signing physician. Objective - Vital Signs Vital signs: Vital Signs Temp 98.1 F 03/31/21 08:00 Pulse 110 H 03/31/21 08:00 Resp 18 03/31/21 08:00 BP 133/85 03/31/21 08:00 Pulse Ox 93 L 03/31/21 08:00 Intake & Output 03/30/21 03/31/21 03/31/21 18:59 06:59 18:59 Intake Total 960 250 Output Total 800 Balance 960 -550 Intake: Intake, IV Titration 250 Amount Azithromycin 500 mg In 250 Sodium Chloride 0.9% 250 ml @ 250 mls/hr IVPB DAILY@1800 [facility] Rx#: [id number] Oral 960 Output: Urine 800 Other: # Voids 1 # Bowel Movements 1 1 - Labs CBC & Chem 7: 03/28/21 12:45 03/30/21 07:18 Labs: Microbiology - Last 24 Hours (Table) 03/28/21 19:07 Blood Culture - Preliminary Blood No Growth after 48 hours 03/28/21 19:07 Blood Culture - Preliminary Blood No Growth after 48 hours
[2021-03-31] MEDS ORDERED: AZITHROMYCIN 500 MG TAB PO SCH (18:00)
--- NOTE | 2021-03-31 19:01 | PN ---
PROGRESS NOTE DATE OF SERVICE: 03/31/2021 REASON FOR FOLLOWUP: COVID-19 pneumonia. INTERIM HISTORY: The patient is afebrile. The patient is breathing more comfortably. The patient denies having any chest pain. She did have a cough. No sputum production. No abdominal pain or diarrhea. PHYSICAL EXAMINATION: Blood pressure 107/65, pulse of 110, temperature 97.5. She is 92% on 15 L nasal cannula. General description is an elderly female up in the bed in no distress. Respiratory system: Unlabored breathing, decreased intensity of the breath sounds, no wheeze . Heart S1, S2. Regular rate and rhythm. Abdomen soft, no tenderness. LABS: BUN of 42, creatinine 1.11. DIAGNOSTIC IMPRESSION AND PLAN: Patient with acute respiratory failure of Covid-19 pneumonia. Slow clinical improvement. Patient to continue with Dexamethasone, Levaquin, zinc and ascorbic acid and respiratory support and monitor clinical course closely. MMODL / IJN: [id number] /
[2021-03-31] MEDS: MELATONIN 3 MG TABLET PO SCH (20:46)
[2021-03-31] MEDS: ATORVASTATIN 20 MG TAB PO SCH (20:46)
[2021-03-31] MEDS: LORazepam 1 MG TAB PO SCH (20:46)
[2021-03-31 23:05] VITALS: TEMP 97.7
[2021-04-01] MEDS: ACETAMINOPHEN TAB 325 MG TAB PO PRN (02:40)
[2021-04-01 05:29] VITALS: RESP 16
[2021-04-01] MEDS: ALBUTEROL HFA INHALER INHALATION SCH (08:57)
[2021-04-01] MEDS: TIOTROPIUM 2.5 MCG INHALER INHALATION SCH (08:57)
[2021-04-01] MEDS: SYMBICORT 80-4.5 MCG INHALER INHALATION SCH (08:57)
[2021-04-01] MEDS: AMIODARONE 200 MG TAB PO SCH (09:09)
[2021-04-01] MEDS: FUROSEMIDE 40 MG TAB PO SCH (09:09)
[2021-04-01] MEDS: APIXABAN 2.5 MG TABLET PO SCH (09:09)
[2021-04-01] MEDS: CHOLECALCIFEROL 25 MCG (1000 IU) TABLET PO SCH (09:09)
[2021-04-01] MEDS: METOPROLOL TARTRATE 25 MG TAB PO SCH (09:10)
[2021-04-01] MEDS: DEXAMETHASONE SOD PHOSPHATE 10 MG/ML 1 ML VIAL IVP SCH (09:10)
[2021-04-01 12:48] VITALS: BP 144/96; PULSE 114
--- NOTE | 2021-04-01 17:11 | PN ---
PROGRESS NOTE DATE OF SERVICE: 04/01/2021 REASON FOR FOLLOWUP: COVID-19 pneumonia. INTERVAL HISTORY: The patient was seen on rounds early this afternoon. The patient has been afebrile. She has been breathing comfortably. Still complaining of feeling weak. No chest pain. No worsening cough or sputum production. No abdominal pain or diarrhea. PHYSICAL EXAMINATION: Blood pressure 114/96, pulse , temperature 96.7. She is 92% General description is is an elderly female up in the chair in no distress. Respiratory system: Unlabored breathing, decreased intensity of breath sounds. No wheeze. Heart S1, S2. Regular rate and rhythm. Abdomen soft, no tenderness. LABS: No new labs have been obtained today. Blood cultures have been negative. DIAGNOSTIC IMPRESSION AND PLAN: Patient with acute COVID-19 pneumonia in this patient with slow clinical improvement. course of oral dexamethasone, zinc and ascorbic acid. No need for systemic antibiotic on discharge. Continue with supportive care. MMODL / IJN: [id number] /
== END 2021-04-01 14:26 | DRG 177 ==
LOC: EC 11:52 → 3SCARD 14:35 → OBSVTOIN 03-29 12:28 → 3SCARD 03-29 15:23
PROVIDERS: ADMIT Family Medicine; ATTEND Family Medicine
DX: U07.1 COVID-19 (principal); I50.23 Acute on chronic systolic (congestive) heart failure; J12.82 Pneumonia due to coronavirus disease 2019; J96.21 Acute and chronic respiratory failure with hypoxia; E87.1 Hypo-osmolality and hyponatremia; I13.0 Hypertensive heart and chronic kidney disease with heart failure and stage 1 through stage 4 chronic kidney disease, or unspecified chronic kidney disease; I42.8 Other cardiomyopathies; I48.19 Other persistent atrial fibrillation; J44.0 Chronic obstructive pulmonary disease with (acute) lower respiratory infection; J44.1 Chronic obstructive pulmonary disease with (acute) exacerbation; E78.5 Hyperlipidemia, unspecified; E86.0 Dehydration; F41.9 Anxiety disorder, unspecified; H91.90 Unspecified hearing loss, unspecified ear; I08.3 Combined rheumatic disorders of mitral, aortic and tricuspid valves; I25.10 Atherosclerotic heart disease of native coronary artery without angina pectoris; I27.20 Pulmonary hypertension, unspecified; M19.041 Primary osteoarthritis, right hand; M19.042 Primary osteoarthritis, left hand; N18.30 Chronic kidney disease, stage 3 unspecified; R53.81 Other malaise; I25.2 Old myocardial infarction; Z79.01 Long term (current) use of anticoagulants; Z79.51 Long term (current) use of inhaled steroids; Z79.899 Other long term (current) drug therapy; Z90.711 Acquired absence of uterus with remaining cervical stump; Z98.42 Cataract extraction status, left eye; Z98.41 Cataract extraction status, right eye; Z98.890 Other specified postprocedural states; Z99.81 Dependence on supplemental oxygen; Z87.891 Personal history of nicotine dependence; Z80.41 Family history of malignant neoplasm of ovary; Z82.0 Family history of epilepsy and other diseases of the nervous system; Z82.49 Family history of ischemic heart disease and other diseases of the circulatory system; Z82.5 Family history of asthma and other chronic lower respiratory diseases; Z88.1 Allergy status to other antibiotic agents
CPT/HCPCS: 36415; 71045; 80048; 80053; 81003; 82728; 83605; 83615; 83735; 84484; 85025; 85379; 85610; 85652; 85730; 86140; 87040; 87635; 93005; 94640; 99285

== ENCOUNTER 2021-04-24 12:33 | Inpatient (IN) | payer MEDICARE, BC ==
[2021-04-24] MEDS ORDERED: SODIUM CHLORIDE 0.9% 1,000 ML IV ONE ×2 (12:51→14:46)
[2021-04-24] MEDS ORDERED: SODIUM CHLORIDE 0.9% 500 ML 500 ML IV ONE ×2 (12:51)
--- NOTE | 2021-04-24 12:54 | ED ---
General Adult HPI - General Chief complaint: Altered Mental Status Stated complaint: AMS/dehydration Time Seen by Provider: 04/24/21 12:45 Source: patient, EMS, RN notes reviewed, old records reviewed Mode of arrival: EMS Limitations: no limitations - History of Present Illness Initial comments: This is an 85-year-old female who was sent in from the detention because of altered mental status. Patient has been recovering from COVID and was post get a chest x-ray to follow-up on the COVID pneumonia that she had but they did not come to take the x-ray yesterday. Today the patient is more altered continues to cough and so they sent the patient emergency department. Patient herself is alert and oriented 2 in her only complaint is coughing and there is no one else with her to give any further history on the patient. - Related Data Home Medications Medication Instructions Recorded Confirmed Fluticasone/Salmeterol [Advair 1 puff INHALATION RT-BID@0900,209903/25/16 04/24/21 250-50 Diskus] Tiotropium 18 Mcg/Puff [Spiriva] 1 cap INHALATION RT-DAILY@89908/19/16 04/24/21 Ferrous Sulfate [Iron (65 MG 325 mg PO DAILY@89907/27/17 04/24/21 Elemental)] Acetaminophen [Tylenol] 650 mg PO Q4H PRN 04/24/21 04/24/21 Albuterol Nebulized [Ventolin 2.5 mg INHALATION RT-Q6H PRN 04/24/21 04/24/21 Nebulized] Amiodarone [Cordarone] 200 mg PO DAILY@89904/24/21 04/24/21 Apixaban [Eliquis] 2.5 mg PO BID@0900,2100 04/24/21 04/24/21 Atorvastatin [Lipitor] 20 mg PO DIRECTED 04/24/21 04/24/21 Benzonatate [Tessalon Perles] 100 mg PO TID@0600,1400,2200 04/24/21 04/24/21 Cholecalciferol [Vitamin D3 (25 50 mcg PO DAILY@0900 04/24/21 04/24/21 Mcg = 1000 Iu)] Furosemide [Lasix] 20 mg PO BID@0600,1400 04/24/21 04/24/21 LORazepam [Ativan] 1 mg PO HS@2100 04/24/21 04/24/21 Lactose-Reduced Food [Ensure Plus] 120 ml PO TID@0900,1300,2000 04/24/21 04/24/21 Levofloxacin [Levaquin] 500 mg PO DAILY@1400 04/24/21 04/24/21 Melatonin 6 mg PO HS@2100 04/24/21 04/24/21 Metoprolol Tartrate [Lopressor] 75 mg PO TID@0600,1400,2200 04/24/21 04/24/21 Sennosides-Docusate Sodium 1 tab PO DAILY@0900 04/24/21 04/24/21 [Senokot-S] Previous Rx's Medication Instructions Recorded Albuterol Inhaler [Ventolin Hfa 1 puff INHALATION RT-QID #1 gm 03/26/21 Inhaler] Allergies Allergy/AdvReac Type Severity Reaction Status Date / Time amoxicillin [From Augmentin] Allergy Unknown Verified 04/24/21 13:30 cefuroxime axetil Allergy Unknown Verified 04/24/21 13:30 [From Ceftin] clavulanic acid Allergy Unknown Verified 04/24/21 13:30 [From Augmentin] Review of Systems ROS Statement: Those systems with pertinent positive or pertinent negative responses have been documented in the HPI. ROS Other: All systems not noted in ROS Statement are negative. Past Medical History Past Medical History: Atrial Fibrillation, Coronary Artery Disease (CAD), Heart Failure, COPD, Eye Disorder, GERD/Reflux, GI Bleed, Hearing Disorder / Deafness, Hyperlipidemia, Hypertension, Myocardial Infarction (MA), Osteoarthritis (OA), Pneumonia, Renal Disease, Respiratory Disorder, Skin Disorder Additional Past Medical History / Comment(s): Covid+ 03/22/20 at [facility]. Pt diagnosed 03/18/21 with pharyngitis and is on antibiotic, nonischemic cardiomyopathy, pulmonary HTN, bronchitis, O2 at 2L/HS, gastritis, diverticular disease, [place]/aides bilaterally, bilateral eye glaucoma, arthritis bilateral hands, CKD, rosacia, past lumbar slipped disc/pain/improved now. Last Myocardial Infarction Date:: 2016 History of Any Multi-Drug Resistant Organisms: None Reported Past Surgical History: Adenoidectomy, Appendectomy, Heart Catheterization, Hysterectomy, Orthopedic Surgery, Tonsillectomy Additional Past Surgical History / Comment(s): 2017 cardiac cath/treated medically, partial hysterectomy/still has part of L ovary, R knee arthroscopy/torn meniscus, EGD, colonoscopies, bilateral blepharoplasties, bilateral eye cataract removal/laser surgery for glaucoma. Past Anesthesia/Blood Transfusion Reactions: No Reported Reaction Additional Past Anesthesia/Blood Transfusion Reaction / Comment(s): . Past Psychological History: Anxiety Past Alcohol Use History: None Reported - Past Family History Brother(s) Additional Family Medical History / Comment(s): Patient had 3 brothers and one is living and 93 years of age and [place] with history of Alzheimer's dementia, coronary artery disease, CHF, A. fib, COPD. Patient has 2 brothers that have passed one from alcoholism and one from a traumatic head injury from a fall. Sister(s) Additional Family Medical History / Comment(s): Patient has one sister that of ovarian cancer. Patient has one son that from alcoholic complications. Father Family Medical History: Cancer Additional Family Medical History / Comment(s): Father at age 77yrs of cancer which pt believes may have started in his throat. Mother Family Medical History: Dementia Additional Family Medical History / Comment(s): Mother at age 95yrs. She was very healthy most of her life- she had dementia at the very end of her life. General Exam - General Exam Comments Initial Comments: GENERAL: Patient is well-developed and well-nourished. Patient is nontoxic and well- hydrated and is in no acute distress. ENT: Neck is soft and supple. No significant lymphadenopathy is noted. Oropharynx is clear. Moist mucous membranes. Neck has full range of motion without eliciting any pain. EYES: The sclera were anicteric and conjunctiva were pink and moist. Extraocular movements were intact and pupils were equal round and reactive to light. Eyelids were unremarkable. PULMONARY: Patient has crackles bilaterally on the left more than the face on the right more crackles in the mid posterior lateral CARDIOVASCULAR: There is a regular rate and rhythm without any murmurs gallops or rubs. ABDOMEN: Soft and nontender with normal bowel sounds. SKIN: Skin is clear with no lesions or rashes and otherwise unremarkable. NEUROLOGIC: Patient is alert and oriented x3. Cranial nerves II through XII are grossly intact. Motor and sensory are also intact. Normal speech, volume and content. Symmetrical smile. MUSCULOSKELETAL: Normal extremities with adequate strength and full range of motion. No lower extremity swelling or edema. No calf tenderness. LYMPHATICS: No significant lymphadenopathy is noted PSYCHIATRIC: Normal psychiatric evaluation. Limitations: no limitations Course Vital Signs 04/24/21 04/24/21 04/24/21 12:45 13:49 14:00 Temperature 98.5 F Pulse Rate 95 94 92 Respiratory 22 20 20 Rate Blood Pressure 96/53 82/54 O2 Sat by Pulse 93 L 92 L 91 L Oximetry 04/24/21 04/24/21 04/24/21 14:25 15:06 17:00 Temperature Pulse Rate 97 92 Respiratory 18 25 H Rate Blood Pressure 99/52 96/58 98/56 O2 Sat by Pulse 92 L 92 L Oximetry 04/24/21 04/24/21 04/24/21 19:00 21:00 22:00 Temperature Pulse Rate 103 H Respiratory 25 H Rate Blood Pressure 108/88 O2 Sat by Pulse 89 L 92 L 84 L Oximetry 04/24/21 04/24/21 04/25/21 22:30 23:00 02:00 Temperature Pulse Rate 101 H 96 Respiratory 22 18 Rate Blood Pressure 100/58 96/71 O2 Sat by Pulse 85 L 92 L 89 L Oximetry 04/25/21 04/25/21 04/25/21 03:46 04:47 09:08 Temperature Pulse Rate 101 H 102 H 103 H Respiratory 18 18 22 Rate Blood Pressure 83/62 110/74 126/79 O2 Sat by Pulse 91 L 90 L 88 L Oximetry 04/25/21 04/25/21 04/25/21 10:37 11:34 11:47 Temperature Pulse Rate 105 H 95 107 H Respiratory 28 H 24 28 H Rate Blood Pressure 109/57 116/77 O2 Sat by Pulse 82 L 88 L 77 L Oximetry 04/25/21 12:49 Temperature Pulse Rate 94 Respiratory 24 Rate Blood Pressure 111/76 O2 Sat by Pulse 97 Oximetry Medical Decision Making - Medical Decision Making Chest x-ray shows worsening COVID pneumonia Patient also has anemia and a type and cross will be done. Decadron was given in the emergency department ordered for the floor. Patient continues to be altered. EKG shows A. fib at 90 bpm QRS is 100 QT interval 394 QTC is 481. Patient's EKG does show some inverted T waves in precordial leads V4 through V5 and V6. - Lab Data Result diagrams: 04/25/21 12:31 04/24/21 13:07 Lab Results 04/24/21 04/24/21 04/24/21 Range/Units 13:07 13:07 13:07 WBC 7.7 (3.8-10.6) k/uL RBC 2.94 L (3.80-5.40) m/uL Hgb 9.3 L D (11.4-16.0) gm/dL Hct 29.2 L (34.0-46.0) % MCV 99.5 (80.0-100.0) fL MCH 31.7 (25.0-35.0) pg MCHC 31.8 (31.0-37.0) g/dL RDW 16.9 H (11.5-15.5) % Plt Count 358 (150-450) k/uL MPV 7.8 Neutrophils % 86 % Lymphocytes % 7 % Monocytes % 5 % Eosinophils % 1 % Basophils % 0 % Neutrophils # 6.6 (1.3-7.7) k/uL Lymphocytes # 0.5 L (1.0-4.8) k/uL Monocytes # 0.4 (0-1.0) k/uL Eosinophils # 0.1 (0-0.7) k/uL Basophils # 0.0 (0-0.2) k/uL Hypochromasia Slight Poikilocytosis Slight Anisocytosis Slight Macrocytosis Slight PT 12.8 H (9.0-12.0) sec INR 1.2 H (<1.2) APTT 24.5 (22.0-30.0) sec Sodium 130 L (137-145) mmol/L Potassium 4.2 (3.5-5.1) mmol/L Chloride 97 L (98-107) mmol/L Carbon Dioxide 28 (22-30) mmol/L Anion Gap 5 mmol/L BUN 30 H (7-17) mg/dL Creatinine 1.45 H (0.52-1.04) mg/dL Est GFR (CKD-EPI)AfAm 37 (>60 ml/min/1.73 sqM) Est GFR (CKD-EPI)NonAf 32 (>60 ml/min/1.73 sqM) Glucose 140 H (74-99) mg/dL POC Glucose (mg/dL) (75-99) mg/dL POC Glu Neurologist ID Calcium 8.1 L (8.4-10.2) mg/dL Total Bilirubin 0.6 (0.2-1.3) mg/dL AST 31 (14-36) U/L ALT 17 (4-34) U/L Alkaline Phosphatase 76 (38-126) U/L Troponin I (0.000-0.034) ng/mL Total Protein 5.3 L (6.3-8.2) g/dL Albumin 2.6 L (3.5-5.0) g/dL Procalcitonin (0.02-0.09) ng/mL Urine Color Urine Appearance (Clear) Urine pH (5.0-8.0) Ur Specific Clio (1.001-1.035) Urine Protein (Negative) Urine Glucose (UA) (Negative) Urine Ketones (Negative) Urine Blood (Negative) Urine Nitrite (Negative) Urine Bilirubin (Negative) Urine Urobilinogen (<2.0) mg/dL Ur Leukocyte Esterase (Negative) Urine Opiates Screen (NotDetected) Ur Oxycodone Screen (NotDetected) Urine Methadone Screen (NotDetected) Ur Propoxyphene Screen (NotDetected) Ur Barbiturates Screen (NotDetected) U Tricyclic Antidepress (NotDetected) Ur Phencyclidine Scrn (NotDetected) Ur Amphetamines Screen (NotDetected) U Methamphetamines Scrn (NotDetected) U Benzodiazepines Scrn (NotDetected) Urine Cocaine Screen (NotDetected) U Marijuana (THC) Screen (NotDetected) 04/24/21 04/24/21 04/24/21 Range/Units 13:07 13:07 13:07 WBC (3.8-10.6) k/uL RBC (3.80-5.40) m/uL Hgb (11.4-16.0) gm/dL Hct (34.0-46.0) % MCV (80.0-100.0) fL MCH (25.0-35.0) pg MCHC (31.0-37.0) g/dL RDW (11.5-15.5) % Plt Count (150-450) k/uL MPV Neutrophils % % Lymphocytes % % Monocytes % % Eosinophils % % Basophils % % Neutrophils # (1.3-7.7) k/uL Lymphocytes # (1.0-4.8) k/uL Monocytes # (0-1.0) k/uL Eosinophils # (0-0.7) k/uL Basophils # (0-0.2) k/uL Hypochromasia Poikilocytosis Anisocytosis Macrocytosis PT (9.0-12.0) sec INR (<1.2) APTT (22.0-30.0) sec Sodium (137-145) mmol/L Potassium (3.5-5.1) mmol/L Chloride (98-107) mmol/L Carbon Dioxide (22-30) mmol/L Anion Gap mmol/L BUN (7-17) mg/dL Creatinine (0.52-1.04) mg/dL Est GFR (CKD-EPI)AfAm (>60 ml/min/1.73 sqM) Est GFR (CKD-EPI)NonAf (>60 ml/min/1.73 sqM) Glucose (74-99) mg/dL POC Glucose (mg/dL) 153 H (75-99) mg/dL POC Glu Neurologist ID Willing, Nikki Calcium (8.4-10.2) mg/dL Total Bilirubin (0.2-1.3) mg/dL AST (14-36) U/L ALT (4-34) U/L Alkaline Phosphatase (38-126) U/L Troponin I 0.035 H* (0.000-0.034) ng/mL Total Protein (6.3-8.2) g/dL Albumin (3.5-5.0) g/dL Procalcitonin 0.13 H (0.02-0.09) ng/mL Urine Color Urine Appearance (Clear) Urine pH (5.0-8.0) Ur Specific Clio (1.001-1.035) Urine Protein (Negative) Urine Glucose (UA) (Negative) Urine Ketones (Negative) Urine Blood (Negative) Urine Nitrite (Negative) Urine Bilirubin (Negative) Urine Urobilinogen (<2.0) mg/dL Ur Leukocyte Esterase (Negative) Urine Opiates Screen (NotDetected) Ur Oxycodone Screen (NotDetected) Urine Methadone Screen (NotDetected) Ur Propoxyphene Screen (NotDetected) Ur Barbiturates Screen (NotDetected) U Tricyclic Antidepress (NotDetected) Ur Phencyclidine Scrn (NotDetected) Ur Amphetamines Screen (NotDetected) U Methamphetamines Scrn (NotDetected) U Benzodiazepines Scrn (NotDetected) Urine Cocaine Screen (NotDetected) U Marijuana (THC) Screen (NotDetected) 04/24/21 Range/Units 13:47 WBC (3.8-10.6) k/uL RBC (3.80-5.40) m/uL Hgb (11.4-16.0) gm/dL Hct (34.0-46.0) % MCV (80.0-100.0) fL MCH (25.0-35.0) pg MCHC (31.0-37.0) g/dL RDW (11.5-15.5) % Plt Count (150-450) k/uL MPV Neutrophils % % Lymphocytes % % Monocytes % % Eosinophils % % Basophils % % Neutrophils # (1.3-7.7) k/uL Lymphocytes # (1.0-4.8) k/uL Monocytes # (0-1.0) k/uL Eosinophils # (0-0.7) k/uL Basophils # (0-0.2) k/uL Hypochromasia Poikilocytosis Anisocytosis Macrocytosis PT (9.0-12.0) sec INR (<1.2) APTT (22.0-30.0) sec Sodium (137-145) mmol/L Potassium (3.5-5.1) mmol/L Chloride (98-107) mmol/L Carbon Dioxide (22-30) mmol/L Anion Gap mmol/L BUN (7-17) mg/dL Creatinine (0.52-1.04) mg/dL Est GFR (CKD-EPI)AfAm (>60 ml/min/1.73 sqM) Est GFR (CKD-EPI)NonAf (>60 ml/min/1.73 sqM) Glucose (74-99) mg/dL POC Glucose (mg/dL) (75-99) mg/dL POC Glu Neurologist ID Calcium (8.4-10.2) mg/dL Total Bilirubin (0.2-1.3) mg/dL AST (14-36) U/L ALT (4-34) U/L Alkaline Phosphatase (38-126) U/L Troponin I (0.000-0.034) ng/mL Total Protein (6.3-8.2) g/dL Albumin (3.5-5.0) g/dL Procalcitonin (0.02-0.09) ng/mL Urine Color Yellow Urine Appearance Clear (Clear) Urine pH 6.0 (5.0-8.0) Ur Specific Clio 1.021 (1.001-1.035) Urine Protein Trace H (Negative) Urine Glucose (UA) Negative (Negative) Urine Ketones Negative (Negative) Urine Blood Negative (Negative) Urine Nitrite Negative (Negative) Urine Bilirubin Negative (Negative) Urine Urobilinogen <2.0 (<2.0) mg/dL Ur Leukocyte Esterase Negative (Negative) Urine Opiates Screen Detected H (NotDetected) Ur Oxycodone Screen Not Detected (NotDetected) Urine Methadone Screen Not Detected (NotDetected) Ur Propoxyphene Screen Not Detected (NotDetected) Ur Barbiturates Screen Not Detected (NotDetected) U Tricyclic Antidepress Not Detected (NotDetected) Ur Phencyclidine Scrn Not Detected (NotDetected) Ur Amphetamines Screen Not Detected (NotDetected) U Methamphetamines Scrn Not Detected (NotDetected) U Benzodiazepines Scrn Detected H (NotDetected) Urine Cocaine Screen Not Detected (NotDetected) U Marijuana (THC) Screen Not Detected (NotDetected) Disposition Clinical Impression: Pneumonia due to COVID-19 virus, Altered mental status, Anemia, Troponin level elevated Disposition: ADMITTED IP TO THIS [facility] Time of Disposition: 14:18
[2021-04-24 13:08] LABS: Glucose,Whole Blood 153 mg/dL (75-99)
[2021-04-24 13:17] LABS: Anisocytosis Slight; Basophils % (A) 0 %; Eosinophils # (A) 0.1 k/uL (0-0.7); Eosinophils % (A) 1 %; HCT 29.2 % (34.0-46.0); Hypochromasia Slight; Lymphocytes # (A) 0.5 k/uL (1.0-4.8); Lymphocytes % (A) 7 %; MCH 31.7 pg (25.0-35.0); MCHC 31.8 g/dL (31.0-37.0); MCV 99.5 fL (80.0-100.0); Macrocytosis Slight; Mean Platelet Volume 7.8; Monocytes # (A) 0.4 k/uL (0-1.0); Monocytes % (A) 5 %; Neutrophils # (A) 6.6 k/uL (1.3-7.7); Neutrophils % (A) 86 %; Platelet Count 358 k/uL (150-450); Poikilocytosis Slight; RBC 2.94 m/uL (3.80-5.40); RDW 16.9 % (11.5-15.5); WBC 7.7 k/uL (3.8-10.6)
--- NOTE | 2021-04-24 13:24 | XR ---
EXAMINATION TYPE: XR chest 2V DATE OF EXAM: 04/24/2021 COMPARISON: Chest x-ray March 30, 2021 HISTORY: Recent covid with difficulty in breathing and altered mental status TECHNIQUE: Frontal and lateral views of the chest are obtained. FINDINGS: There is worsening bilateral multifocal and confluent opacities on background chronic emph ysematous and pulmonary fibrotic changes. Small to tiny right greater than left pleural effusions ar e now present. The cardiac silhouette size is stable and mildly enlarged. The osseous structures ar e intact. IMPRESSION: Worsening bilateral opacities consistent with covid-19 infection progression on backgrou nd mild cardiomegaly and chronic emphysematous and pulmonary fibrotic changes
[2021-04-24 13:25] LABS: HGB 9.3 gm/dL (11.4-16.0)
[2021-04-24 13:33] LABS: INR 1.2 (<1.2); Partial Thromboplastin Time 24.5 sec (22.0-30.0); Prothrombin Time 12.8 sec (9.0-12.0)
[2021-04-24 13:40] LABS: Albumin 2.6 g/dL (3.5-5.0); Calcium 8.1 mg/dL (8.4-10.2); Potassium 4.2 mmol/L (3.5-5.1); Total Bilirubin 0.6 mg/dL (0.2-1.3); Total Protein 5.3 g/dL (6.3-8.2)
[2021-04-24 13:55] LABS: Appearance,Urine Clear (Clear); Bilirubin,Urine Negative (Negative); Blood,Urine Negative (Negative); Color,Urine Yellow; Glucose,Urine (UA) Negative (Negative); Ketones,Urine Negative (Negative); Leukocyte Esterase,Urine Negative (Negative); Nitrite,Urine Negative (Negative); Protein,Urine Trace (Negative); Specific Gravity,Urine 1.021 (1.001-1.035); Urobilinogen,Urine <2.0 mg/dL (<2.0)
[2021-04-24 14:15] LABS: Amphetamine Screen,Urine Not Detected (NotDetected); Barbiturate Screen,Urine Not Detected (NotDetected); Benzodiazepines Screen,Urine Detected (NotDetected); Cocaine Screen,Urine Not Detected (NotDetected); Methadone Screen, Urine Not Detected (NotDetected); Opiate Screen,Urine Detected (NotDetected); Oxycodone Screen, Urine Not Detected (NotDetected); Phencyclidine Screen,Urine Not Detected (NotDetected); Tricyclic Antidepressant,Urine Not Detected (NotDetected); Urn Cannabinoid Scrn Not Detected (NotDetected)
[2021-04-24] MEDS ORDERED: dexAMETHasone 2 MG TAB PO STA (14:15)
--- NOTE | 2021-04-24 15:54 | P.CNPUL ---
History of Present Illness Consult date: 04/24/21 Reason for consult: hypoxemia History of present illness: 85-year-old female patient hospitalized for Covid 19 related long-term complications of pulmonary infiltration and hypoxemia. Note that the patient was Hospital as back in March 2021. The patient was discharged to [facility] [place] on 04/01/[facility]21 and she has been on oxygen at 3 L since then. The patient was diagnosed having acute coronary 19 related pneumonia, decompensated CHF and COPD exacerbation. She is known to have multiple medical problems and comorbidities. The patient was brought into the emergency. Her shortness of breath is vaccinated and waning although she feels that overall she has been stable over the past 1 month. She has no altered mentation. The daughter at the bedside tells that her mentation fluctuates. At times she is more lucid and other times more confused. Based on my evaluation this afternoon, the patient is fully alert and awake in oriented to time and place and people. Chest x-ray was still showing diffuse bilateral pulmonary infiltrates and a chest x-ray findings are essentially stable compared to the earlier evaluation from March 2021. She has been on Eliquis 2.5 mg by mouth twice a day and Lasix 20 mg by mouth twice daily on outpatient basis. No signs of any fluid overload. No angina. No palpitations. Review of Systems Constitutional: Reports fatigue, Reports poor appetite, Reports weakness, Reports weight loss Eyes: denies as per HPI, denies blurred vision, denies bulging eye, denies decreased vision, denies diplopia, denies discharge, denies dry eye, denies irritation, denies itching, denies pain, denies photophobia, denies loss of peripheral vision, denies loss of vision, denies tunnel vision/blind spots Ears: deny: decreased hearing, ear discharge, earache, tinnitus Ears, nose, mouth and throat: Reports as per HPI Breasts: absent: as per HPI, change in shape, gynecomastia, masses, nipple discharge, pain, skin changes, swelling Cardiovascular: Reports decreased exercise tolerance, Reports irregular heart beat Respiratory: Reports home oxygen Gastrointestinal: Reports as per HPI Genitourinary: Reports as per HPI Menstruation: Reports as per HPI Musculoskeletal: Reports as per HPI Musculoskeletal: absent: ankle pain, ankle stiffness, ankle swelling, as per HPI, elbow pain, elbow stiffness, elbow swelling, foot pain, foot stiffness, foot swelling, hand pain, hand stiffness, hand swelling, hip pain, hip stiffness, hip swelling, knee pain, knee stiffness, knee swelling, shoulder pa in, shoulder stiffness, shoulder swelling, wrist pain, wrist stiffness, wrist swelling Integumentary: Reports as per HPI Neurological: Reports confusion Psychiatric: Reports as per HPI Endocrine: Reports as per HPI Hematologic/Lymphatic: Reports as per HPI Allergic/Immunologic: Reports as per HPI Past Medical History Past Medical History: Atrial Fibrillation, Coronary Artery Disease (CAD), Heart Failure, COPD, Eye Disorder, GERD/Reflux, GI Bleed, Hearing Disorder / Deafness, Hyperlipidemia, Hypertension, Myocardial Infarction (NC), Osteoarthritis (OA), Pneumonia, Renal Disease, Respiratory Disorder, Skin Disorder Additional Past Medical History / Comment(s): Covid+ 03/22/20 at [facility]. Pt diagnosed 03/18/21 with pharyngitis and is on antibiotic, nonischemic cardiomyopathy, pulmonary HTN, bronchitis, O2 at 2L/HS, gastritis, diverticular disease, [place]/aides bilaterally, bilateral eye glaucoma, arthritis bilateral hands, CKD, rosacia, past lumbar slipped disc/pain/improved now. Last Myocardial Infarction Date:: 2016 History of Any Multi-Drug Resistant Organisms: None Reported Past Surgical History: Adenoidectomy, Appendectomy, Heart Catheterization, Hysterectomy, Orthopedic Surgery, Tonsillectomy Additional Past Surgical History / Comment(s): 2017 cardiac cath/treated med ically, partial hysterectomy/still has part of L ovary, R knee arthroscopy/torn meniscus, EGD, colonoscopies, bilateral blepharoplasties, bilateral eye cataract removal/laser surgery for glaucoma. Past Anesthesia/Blood Transfusion Reactions: No Reported Reaction Additional Past Anesthesia/Blood Transfusion Reaction / Comment(s): . Past Psychological History: Anxiety Past Alcohol Use History: None Reported - Past Family History Brother(s) Additional Family Medical History / Comment(s): Patient had 3 brothers and one is living and 93 years of age and [place] with history of Alzheimer's dementia, coronary artery disease, CHF, A. fib, COPD. Patient has 2 brothers that have passed one from alcoholism and one from a traumatic head injury from a fall. Sister(s) Additional Family Medical History / Comment(s): Patient has one sister that of ovarian cancer. Patient has one son that from alcoholic complications. Father Family Medical History: Cancer Additional Family Medical History / Comment(s): Father at age 77yrs of cancer which pt believes may have started in his throat. Mother Family Medical History: Dementia Additional Family Medical History / Comment(s): Mother at age 95yrs. She was very healthy most of her life- she had dementia at the very end of her life. Medications and Allergies Home Medications Medication Instructions Recorded Confirmed Type Fluticasone/Salmeterol [Advair 1 puff INHALATION RT-BID@0900,209903/25/16 04/24/21 History 250-50 Diskus] Tiotropium 18 Mcg/Puff [Spiriva] 1 cap INHALATION RT-DAILY@89908/19/16 04/24/21 History Ferrous Sulfate [Iron (65 MG 325 mg PO DAILY@0900 07/27/17 04/24/21 History Elemental)] Albuterol Inhaler [Ventolin Hfa 1 puff INHALATION RT-QID #1 gm 03/26/21 04/24/21 Rx Inhaler] Acetaminophen [Tylenol] 650 mg PO Q4H PRN 04/24/21 04/24/21 History Albuterol Nebulized [Ventolin 2.5 mg INHALATION RT-Q6H PRN 04/24/21 04/24/21 History Nebulized] Amiodarone [Cordarone] 200 mg PO DAILY@0900 04/24/21 04/24/21 History Apixaban [Eliquis] 2.5 mg PO BID@0900,2100 04/24/21 04/24/21 History Atorvastatin [Lipitor] 20 mg PO DIRECTED 04/24/21 04/24/21 History Benzonatate [Tessalon Perles] 100 mg PO TID@0600,1400,2200 04/24/21 04/24/21 History Cholecalciferol [Vitamin D3 (25 50 mcg PO DAILY@0900 04/24/21 04/24/21 History Mcg = 1000 Iu)] Furosemide [Lasix] 20 mg PO BID@0600,1400 04/24/21 04/24/21 History LORazepam [Ativan] 1 mg PO HS@209904/24/21 04/24/21 History Lactose-Reduced Food [Ensure Plus] 120 ml PO TID@0900,1300,2000 04/24/21 04/24/21 History Levofloxacin [Levaquin] 500 mg PO DAILY@1400 04/24/21 04/24/21 History Melatonin 6 mg PO HS@2100 04/24/21 04/24/21 History Metoprolol Tartrate [Lopressor] 75 mg PO TID@0600,1400,2200 04/24/21 04/24/21 History Sennosides-Docusate Sodium 1 tab PO DAILY@0900 04/24/21 04/24/21 History [Senokot-S] Allergies Allergy/AdvReac Type Severity Reaction Status Date / Time amoxicillin [From Augmentin] Allergy Unknown Verified 04/24/21 13:30 cefuroxime axetil Allergy Unknown Verified 04/24/21 13:30 [From Ceftin] clavulanic acid Allergy Unknown Verified 04/24/21 13:30 [From Augmentin] Physical Exam Vitals: Vital Signs Temp Pulse Resp BP Pulse Ox 04/24/21 15:06 97 18 96/58 92 L 04/24/21 14:25 99/52 04/24/21 14:00 92 20 82/54 91 L 04/24/21 13:49 94 20 92 L 04/24/21 12:45 98.5 F 95 22 96/53 93 L Intake and Output 04/24/21 04/24/21 04/24/21 06:59 14:59 22:59 Other: Weight 56.699 kg GENERAL EXAM: Alert, hard of hearing, pleasant, 85-year-old white female, on 3 L of oxygen the pulse ox of 94% comfortable in no apparent distress. HEAD: Normocephalic/atraumatic. EYES: Normal reaction of pupils, equal size. Conjunctiva pink, sclera white. NOSE: Clear with pink turbinates. THROAT: No erythema or exudates. NECK: No masses, no JVD, no thyroid enlargement, no adenopathy. CHEST: No chest wall deformity. Symmetrical expansion. LUNGS: Equal air entry with diffuse crackles CVS: Irregular rate and rhythm, normal S1 and S2, no gallops, no murmurs, no rubs ABDOMEN: Soft, nontender. No hepatosplenomegaly, normal bowel sounds, no guarding or rigidity. EXTREMITIES: No clubbing, mild lower extremity edema no cyanosis, 2+ pulses and upper and lower extremities. MUSCULOSKELETAL: Muscle strength and tone normal. SPINE: No scoliosis or deformity SKIN: No rashes CENTRAL NERVOUS SYSTEM: Alert and oriented -3. No focal deficits, tone is normal in all 4 extremities. PSYCHIATRIC: Alert and oriented -3. Appropriate affect. Intact judgment and insight. Results - Laboratory Findings CBC and BMP: 04/24/21 13:07 04/24/21 13:07 PT/INR, D-dimer PT 12.8 sec (9.0-12.0) H 04/24/21 13:07 INR 1.2 (<1.2) H 04/24/21 13:07 Abnormal lab findings: Abnormal Labs 04/24/21 04/24/21 04/24/21 13:07 13:07 13:07 RBC 2.94 L Hgb 9.3 L D Hct 29.2 L RDW 16.9 H Lymphocytes # 0.5 L PT 12.8 H INR 1.2 H Sodium 130 L Chloride 97 L BUN 30 H Creatinine 1.45 H Glucose 140 H POC Glucose (mg/dL) Calcium 8.1 L Troponin I Total Protein 5.3 L Albumin 2.6 L Urine Protein Urine Opiates Screen U Benzodiazepines Scrn 04/24/21 04/24/21 04/24/21 13:07 13:07 13:47 RBC Hgb Hct RDW Lymphocytes # PT INR Sodium Chloride BUN Creatinine Glucose POC Glucose (mg/dL) 153 H Calcium Troponin I 0.035 H* Total Protein Albumin Urine Protein Trace H Urine Opiates Screen Detected H U Benzodiazepines Scrn Detected H - Diagnostic Findings Chest x-ray: image reviewed Assessment and Plan Plan: 1 chronic hypoxic respiratory failure without any interval worsening and the patient remains on 3 L of Oxymizer nasal cannula. Chest x-ray shows residual pulmonary infiltrates related to previous Covid 19 related pneumonia that occurred in August 2020. The patient was diagnosed having Covid 19 on 03/18/2021 and the patient was hospitalized between 03/22/2020 and 04/01/2020 and following that the patient was discharged to a senior living. She is still having hypox emia and oxygen requirements remain unchanged at 3 L. Chest x-ray findings are still stable. No signs of any decompensated heart failure at this point in time. Superinfection is felt to be less likely. In fact, her repeat Covid 19 testing came back negative. 2 CHF with systolic heart failure 3 chronic atrial fibrillation 4 COPD 5 chronic stage III kidney disease 6 hypertension 7 hyperlipidemia 8 bilateral heart disease with mild aortic stenosis, moderate MR and severe TR with severe pulmonary hypertension 9 debility with worsening weakness currently residing at [facility] [place] 10 degenerative arthritis 11 hard of hearing 12 diverticular disease 13 lumbar disc disease Plan Monitor the oxygen for another 24 hours No need for steroids Continue Eliquis 2.5 mg twice a day Resume all medications I believe the chest x-ray findings are chronic. In fact the patient tested n egative for Covid 19 We'll continue to follow. Should be able to go back to [facility] [place] wit hin next 24 hours
[2021-04-24 19:01] LABS: Anisocytosis Slight; Basophils % (A) 0 %; Eosinophils % (A) 0 %; HCT 29.4 % (34.0-46.0); HGB 9.1 gm/dL (11.4-16.0); Hypochromasia Marked; Lymphocytes # (A) 0.5 k/uL (1.0-4.8); Lymphocytes % (A) 6 %; MCH 31.8 pg (25.0-35.0); MCHC 30.9 g/dL (31.0-37.0); Macrocytosis Moderate; Mean Platelet Volume 7.5; Monocytes # (A) 0.2 k/uL (0-1.0); Monocytes % (A) 3 %; Neutrophils # (A) 6.3 k/uL (1.3-7.7); Neutrophils % (A) 88 %; Platelet Count 353 k/uL (150-450); Poikilocytosis Slight; RBC 2.85 m/uL (3.80-5.40); RDW 16.8 % (11.5-15.5); WBC 7.1 k/uL (3.8-10.6)
[2021-04-25 00:54] LABS: Anisocytosis Slight; Basophils % (A) 0 %; Eosinophils % (A) 0 %; HCT 29.7 % (34.0-46.0); HGB 9.4 gm/dL (11.4-16.0); Hypochromasia Moderate; Lymphocytes # (A) 0.4 k/uL (1.0-4.8); Lymphocytes % (A) 6 %; MCH 31.8 pg (25.0-35.0); MCHC 31.6 g/dL (31.0-37.0); MCV 100.5 fL (80.0-100.0); Macrocytosis Slight; Mean Platelet Volume 7.7; Monocytes # (A) 0.1 k/uL (0-1.0); Monocytes % (A) 1 %; Neutrophils % (A) 92 %; Platelet Count 333 k/uL (150-450); Poikilocytosis Slight; RBC 2.95 m/uL (3.80-5.40); RDW 16.4 % (11.5-15.5); WBC 6.5 k/uL (3.8-10.6)
[2021-04-25] MEDS ORDERED: dexAMETHasone 2 MG TAB PO SCH (09:00)
[2021-04-25] MEDS ORDERED: ALBUTEROL HFA INHALER INHALATION PRN (10:42)
[2021-04-25] MEDS ORDERED: ATORVASTATIN 20 MG TAB PO SCH (10:45)
--- NOTE | 2021-04-25 10:50 | P.HPIM ---
History of Present Illness H&P Date: 04/25/21 HISTORY OF PRESENT ILLNESS This is an 85-year-old female patient of Dr. Wills and Dr. Pagan with past medical history of chronic persistent atrial fibrillation, chronic systolic heart failure, pulmonary hypertension, COPD with chronic hypoxic respiratory failure on home O2 at 3 L as needed, hypertension, hyperlipidemia, chronic kidney disease stage III, generalized osteoarthritis. A hat hospitalization early in March for acute hypoxic respiratory failure secondary to acute exacerbation of systolic heart failure, Covid 19 pneumonia and acute exacerbation of COPD and A. fib with RVR. Patient was discharged home with home care. She's was subsequently admitted on March 28 for same diagnoses and was discharged to [facility]. A is sent to us from [facility] due to confusion. Patient states that she is coughing all the time and has shortness of breath. She is on chronic oxygen therapy. WBC 7.1, hemoglobin 9.1, platelet count 353. Sodium 130, potassium 4.2, chlorid e 97, CO2 28, BUN 30 creatinine 1.45. Glucose 140. Calcium 8.1. Total bilirubin 0.6, AST 31, ALT 17, alkaline phosphatase 76. Troponin 0.035. Pro- calcitonin 0.13. Urinalysis trace protein and negative for infection. Urine drug screen positive for opiates and benzodiazepines. Carotid virus PCR not detected. Patient presented to [facility] emergency center and found to be afebrile, heart rate 95, blood pressure 96/53, pulse ox 93% on 3 L nasal cannula but subsequently pulse ox dropped to 89% on 4 L nasal cannula and patient was placed on high flow nasal cannula 15 L. EKG was atrial fibrillation heart rate of 90. Chest x-ray reveals worsening bilateral opacities consistent with COVID19 infection progression on background mild cardiomegaly and chronic emphysematour and pulmonary fibrotic changes. Echocardiogram 03/23/2021 revealed EF of 30-35%, mild aortic regurgitation, moderate mitral regurgitation, severe tricuspid regurgitation, severe pulmonary hypertension. Patient seen today in the ER waiting for bed on CSD unit. She has been seen by pulmonary medicine and was cleared yesterday to return to [facility] prior to the drop in pulse ox. REVIEW OF SYSTEMS Constitutional: No fever, no chills, no night sweats. No weight change. No weakness, fatigue or lethargy. No daytime sleepiness. EENT: No headache. No blurred vision or double vision, no loss of vision. No loss of Hearing, no ringing in the ears, no dizziness. No nasal drainage or congestion. No epistaxis. No sore throat. Lungs: Reports shortness of breath, reports cough, no sputum production. No wheezing. Cardiovascular: No chest pain, no lower extremity edema. No palpitations. No paroxysmal nocturnal dyspnea. No orthopnea. No lightheadedness or dizziness. No syncopal episodes. Abdominal: No abdominal pain. No nausea, vomiting. No diarrhea. No constipation. No bloody or tarry stools. No loss of appetite. Genitourinary: No dysuria, increased frequency, urgency. No urinary retention. Musculoskeletal: No myalgias. No muscle weakness, no gait dysfunction, no frequent falls. No back pain. No neck pain. Integumentary: No wounds, no lesions. No rash or pruritus. No unusual bruising. No change in hair or nails. Neurologic: No aphasia. No facial droop. Reported change in mentation. No head injury. No headache. No paralysis. No paresthesia. Psychiatric: No depression. Reports anxiety. No mood swings. Endocrine: No abnormal blood sugars. No weight change. No excessive sweating or thirst. No cold intolerance. SOCIAL HISTORY Patient was a smoker for 55 years and quit in 2004. She states she drinks 1-2 glasses of wine most nights. 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 She has no pets in the home. She is and is independent. FAMILY HISTORY Mother at age 95yrs. She was very healthy most of her life- she had dementia at the very end of her life. Father at age 77yrs of cancer which pt believes may have started in his throat. Patient had 3 brothers and one is living and 93 years of age and [place] with history of Alzheimer's dementia, coronary artery disease, CHF, A. fib, COPD. Patient has 2 brothers that have passed one from alcoholism and one from a traumatic head injury from a fall. Patient has one sister that of ovarian cancer. Patient has one son that from alcoholic complications. PHYSICAL EXAMINATION Gen: This is a thin 85-year-old female. She is resting on ER stretcher and appears to be comfortable and in no acute distress. He is currently on high flow nasal cannula 15 L. HEENT: Head is atraumatic, normocephalic. Pupils equal, round. Sclerae is anicteric. NECK: Supple. No JVD. No lymphadenopathy. No thyromegaly. LUNGS: Scattered crackles. No intercostal retractions. HEART: Irregularly irregular rate and rhythm. No murmur. ABDOMEN: Soft. Bowel sounds are present. No masses. No tenderness. EXTREMITIES: No pedal edema. No calf tenderness. Dorsalis pedis +2 bilaterally. NEUROLOGICAL: Patient is awake, alert and oriented x3. Cranial nerves 2 through 12 are grossly intact. ASSESSMENT AND PLAN 1. Acute on chronic hypoxic respiratory failure secondary to a residual Covid 19 pneumonia on top of chronic systolic heart failure, COPD, pulmonary fibrosis. Continue oxygen therapy 2. Chronic systolic heart failure. Continue Lasix 20 mg oral twice daily. 3. Possible Covid 19 pneumonia. Pulmonary consult appreciated. Patient's been started on Ventolin inhaler 4 times daily, Symbicort 2 puffs twice daily, dexam ethasone 6 mgoral daily, Spiriva. 4. COPD without exacerbation. Continue Symbicort, Spiriva, albuterol, dexamethasone. 5. Chronic persistent atrial fibrillation. Continue amiodarone 200 mg daily, Lopressor 75 mg 3 times daily. 6. Anemia of chronic disease. Continue to monitor. 7. Hypertension. Continue Lopressor. 8. Hyperlipidemia. Continue Lipitor 20 mg at bedtime. 9. Chronic kidney disease stage III. Monitor renal function, avoid nephrotoxic agents. 10. Valvular heart disease with mild aortic regurgitation, moderate mitral regurgitation, severe tricuspid regurgitation. 11. Severe pulmonary hypertension. 12. GI prophylaxis. Protonix. 13. DVT prophylaxis. Eliquis. 14. COVID-19 testing negative. Patient has been hospitalized during a pandemic. Patient will be admitted to the hospital for a minimum of 2 night stay. DISCHARGE PLAN Return to [facility]. Impression and plan of care have been directed as dictated by the signing physician. Margaret Pulliam nurse practitioner acting as scribe for signing physician. Past Medical History Past Medical History: Atrial Fibrillation, Coronary Artery Disease (CAD), Heart Failure, COPD, Eye Disorder, GERD/Reflux, GI Bleed, Hearing Disorder / Deafness, Hyperlipidemia, Hypertension, Myocardial Infarction ([place]), Osteoarthritis (OA), Pneumonia, Renal Disease, Respiratory Disorder, Skin Disorder Additional Past Medical History / Comment(s): Covid+ 03/22/20 at [facility]. Pt diagnosed 03/18/21 with pharyngitis and is on antibiotic, nonischemic cardiomyopathy, pulmonary HTN, bronchitis, O2 at 2L/HS, gastritis, diverticular disease, [place]/aides bilaterally, bilateral eye glaucoma, arthritis bilateral hands, CKD, rosacia, past lumbar slipped disc/pain/improved now. Last Myocardial Infarction Date:: 2016 History of Any Multi-Drug Resistant Organisms: None Reported Past Surgical History: Adenoidectomy, Appendectomy, Heart Catheterization, Hysterectomy, Orthopedic Surgery, Tonsillectomy Additional Past Surgical History / Comment(s): 2017 cardiac cath/treated medically, partial hysterectomy/still has part of L ovary, R knee arthros copy/torn meniscus, EGD, colonoscopies, bilateral blepharoplasties, bilateral eye cataract removal/laser surgery for glaucoma. Past Anesthesia/Blood Transfusion Reactions: No Reported Reaction Additional Past Anesthesia/Blood Transfusion Reaction / Comment(s): . Past Psychological History: Anxiety Past Alcohol Use History: None Reported - Past Family History Brother(s) Additional Family Medical History / Comment(s): Patient had 3 brothers and one is living and 93 years of age and [place] with history of Alzheimer's dementia, coronary artery disease, CHF, A. fib, COPD. Patient has 2 brothers that have passed one from alcoholism and one from a traumatic head injury from a fall. Sister(s) Additional Family Medical History / Comment(s): Patient has one sister that of ovarian cancer. Patient has one son that from alcoholic complications. Father Family Medical History: Cancer Additional Family Medical History / Comment(s): Father at age 77yrs of cancer which pt believes may have started in his throat. Mother Family Medical History: Dementia Additional Family Medical History / Comment(s): Mother at age 95yrs. She was very healthy most of her life- she had dementia at the very end of her life. Medications and Allergies Home Medications Medication Instructions Recorded Confirmed Type Fluticasone/Salmeterol [Advair 1 puff INHALATION RT-BID@0900,2100 03/25/16 04/24/21 History 250-50 Diskus] Tiotropium 18 Mcg/Puff [Spiriva] 1 cap INHALATION RT-DAILY@0900 03/17 02/06/22 History Ferrous Sulfate [Iron (65 MG 325 mg PO DAILY@89907/27/17 04/24/21 History Elemental)] Albuterol Inhaler [Ventolin Hfa 1 puff INHALATION RT-QID #1 gm 03/26/21 04/24/21 Rx Inhaler] Acetaminophen [Tylenol] 650 mg PO Q4H PRN 04/24/21 04/24/21 History Albuterol Nebulized [Ventolin 2.5 mg INHALATION RT-Q6H PRN 04/24/21 04/24/21 History Nebulized] Amiodarone [Cordarone] 200 mg PO DAILY@89904/24/21 04/24/21 History Apixaban [Eliquis] 2.5 mg PO BID@0900,209904/24/21 04/24/21 History Atorvastatin [Lipitor] 20 mg PO DIRECTED 04/24/21 04/24/21 History Benzonatate [Tessalon Perles] 100 mg PO TID@0600,1400,219904/24/21 04/24/21 History Cholecalciferol [Vitamin D3 (25 50 mcg PO DAILY@89904/24/21 04/24/21 History Mcg = 1000 Iu)] Furosemide [Lasix] 20 mg PO BID@0600,1400 04/24/21 04/24/21 History LORazepam [Ativan] 1 mg PO HS@209904/24/21 04/24/21 History Lactose-Reduced Food [Ensure Plus] 120 ml PO TID@0900,1300,199904/24/21 04/24/21 History Levofloxacin [Levaquin] 500 mg PO DAILY@139904/24/21 04/24/21 History Melatonin 6 mg PO HS@209904/24/21 04/24/21 History Metoprolol Tartrate [Lopressor] 75 mg PO TID@0600,1400,0 04/24/21 04/24/21 History Sennosides-Docusate Sodium 1 tab PO DAILY@00 04/24/21 04/24/21 History [Senokot-S] Allergies Allergy/AdvReac Type Severity Reaction Status Date / Time amoxicillin [From Augmentin] Allergy Unknown Verified 04/24/21 13:30 cefuroxime axetil Allergy Unknown Verified 04/24/21 13:30 [From Ceftin] clavulanic acid Allergy Unknown Verified 04/24/21 13:30 [From Augmentin] Physical Exam Vitals: Vital Signs Temp Pulse Resp BP Pulse Ox 04/25/21 04:47 102 H 18 110/74 90 L 04/25/21 03:46 101 H 18 83/62 91 L 04/25/21 02:00 96 18 96/71 89 L 04/24/21 23:00 101 H 22 100/58 92 L 04/24/21 21:00 92 L 04/24/21 19:00 103 H 25 H 108/88 89 L 04/24/21 17:00 92 25 H 98/56 92 L 04/24/21 15:06 97 18 96/58 92 L 04/24/21 14:25 99/52 04/24/21 14:00 92 20 82/54 91 L 04/24/21 13:49 94 20 92 L 04/24/21 12:45 98.5 F 95 22 96/53 93 L Results CBC & Chem 7: 04/25/21 00:33 04/24/21 13:07 Labs: Abnormal Lab Results - Last 24 Hours (Table) 04/24/21 04/24/21 04/24/21 Range/Units 13:07 13:07 13:07 RBC 2.94 L (3.80-5.40) m/uL Hgb 9.3 L D (11.4-16.0) gm/dL Hct 29.2 L (34.0-46.0) % MCV (80.0-100.0) fL MCHC (31.0-37.0) g/dL RDW 16.9 H (11.5-15.5) % Lymphocytes # 0.5 L (1.0-4.8) k/uL PT 12.8 H (9.0-12.0) sec INR 1.2 H (<1.2) Sodium 130 L (137-145) mmol/L Chloride 97 L (98-107) mmol/L BUN 30 H (7-17) mg/dL Creatinine 1.45 H (0.52-1.04) mg/dL Glucose 140 H (74-99) mg/dL POC Glucose (mg/dL) (75-99) mg/dL Calcium 8.1 L (8.4-10.2) mg/dL Troponin I (0.000-0.034) ng/mL Total Protein 5.3 L (6.3-8.2) g/dL Albumin 2.6 L (3.5-5.0) g/dL Procalcitonin (0.02-0.09) ng/mL Urine Protein (Negative) Urine Opiates Screen (NotDetected) U Benzodiazepines Scrn (NotDetected) 04/24/21 04/24/21 04/24/21 Range/Units 13:07 13:07 13:07 RBC (3.80-5.40) m/uL Hgb (11.4-16.0) gm/dL Hct (34.0-46.0) % MCV (80.0-100.0) fL MCHC (31.0-37.0) g/dL RDW (11.5-15.5) % Lymphocytes # (1.0-4.8) k/uL PT (9.0-12.0) sec INR (<1.2) Sodium (137-145) mmol/L Chloride (98-107) mmol/L BUN (7-17) mg/dL Creatinine (0.52-1.04) mg/dL Glucose (74-99) mg/dL POC Glucose (mg/dL) 153 H (75-99) mg/dL Calcium (8.4-10.2) mg/dL Troponin I 0.035 H* (0.000-0.034) ng/mL Total Protein (6.3-8.2) g/dL Albumin (3.5-5.0) g/dL Procalcitonin 0.13 H (0.02-0.09) ng/mL Urine Protein (Negative) Urine Opiates Screen (NotDetected) U Benzodiazepines Scrn (NotDetected) 04/24/21 04/24/21 04/25/21 Range/Units 13:47 18:23 00:33 RBC 2.85 L 2.95 L (3.80-5.40) m/uL Hgb 9.1 L 9.4 L (11.4-16.0) gm/dL Hct 29.4 L 29.7 L (34.0-46.0) % MCV 103.0 H 100.5 H (80.0-100.0) fL MCHC 30.9 L (31.0-37.0) g/dL RDW 16.8 H 16.4 H (11.5-15.5) % Lymphocytes # 0.5 L 0.4 L (1.0-4.8) k/uL PT (9.0-12.0) sec INR (<1.2) Sodium (137-145) mmol/L Chloride (98-107) mmol/L BUN (7-17) mg/dL Creatinine (0.52-1.04) mg/dL Glucose (74-99) mg/dL POC Glucose (mg/dL) (75-99) mg/dL Calcium (8.4-10.2) mg/dL Troponin I (0.000-0.034) ng/mL Total Protein (6.3-8.2) g/dL Albumin (3.5-5.0) g/dL Procalcitonin (0.02-0.09) ng/mL Urine Protein Trace H (Negative) Urine Opiates Screen Detected H (NotDetected) U Benzodiazepines Scrn Detected H (NotDetected)
[2021-04-25] MEDS ORDERED: FUROSEMIDE 10 MG/ML 4 ML VIAL IV STA (11:52)
[2021-04-25] MEDS ORDERED: HEPARIN SODIUM 1,000 UN/ML (10ML VL) IV ONE (12:18)
[2021-04-25] MEDS: ALBUTEROL HFA INHALER INHALATION SCH ×3 (12:19→20:27)
[2021-04-25] MEDS ORDERED: HEPARIN SOD,PORK IN 0.45% NACL 25,000 UNIT in 0.45% NACL 1 250ML.BAG IV SCH (12:30)
[2021-04-25] MEDS: DEXAMETHASONE SOD PHOSPHATE 10 MG/ML 1 ML VIAL IVP SCH (12:42)
[2021-04-25 12:54] LABS: Anisocytosis Slight; Basophils % (A) 0 %; Eosinophils % (A) 0 %; HCT 33.8 % (34.0-46.0); HGB 10.3 gm/dL (11.4-16.0); Hypochromasia Marked; Lymphocytes # (A) 0.4 k/uL (1.0-4.8); Lymphocytes % (A) 6 %; MCH 31.2 pg (25.0-35.0); MCHC 30.6 g/dL (31.0-37.0); Macrocytosis Moderate; Mean Platelet Volume 7.4; Monocytes # (A) 0.2 k/uL (0-1.0); Monocytes % (A) 3 %; Neutrophils # (A) 6.5 k/uL (1.3-7.7); Neutrophils % (A) 91 %; Platelet Count 400 k/uL (150-450); Poikilocytosis Slight; RBC 3.32 m/uL (3.80-5.40); RDW 16.7 % (11.5-15.5); WBC 7.1 k/uL (3.8-10.6)
[2021-04-25] MEDS ORDERED: NON FORMULARY DRUG (Lactose-Reduced Food [Ensure Plus] 237 ML Ml) PO SCH (13:00)
[2021-04-25 13:08] LABS: INR 1.1 (<1.2)
--- NOTE | 2021-04-25 13:39 | US ---
EXAMINATION TYPE: US venous doppler duplex LE BI DATE OF EXAM: 04/25/2021 1:31 PM COMPARISON: NONE CLINICAL HISTORY: recent COVID. SIDE PERFORMED: bilateral TECHNIQUE: The lower extremity deep venous system is examined utilizing real time linear array sonog dona with graded compression, doppler sonography and color-flow sonography. VESSELS IMAGED: Common Femoral Vein Deep Femoral Vein Greater Saphenous Vein * Femoral Vein Popliteal Vein Small Saphenous Vein * Proximal Calf Veins (* superficial vessels) Right Leg: no evidence of DVT as visualized Left Leg: no evidence of DVT as visualized IMPRESSION: No evidence for DVT.
--- NOTE | 2021-04-25 13:44 | P.PN ---
Subjective Progress Note Date: 04/25/21 Principal diagnosis: Shortness of breath 85-year-old female patient hospitalized for Covid 19 related long-term complications of pulmonary infiltration and hypoxemia. Note that the patient was Hospital as back in March 2021. The patient was discharged to [facility] on the [facility] on 04/01/2021 and she has been on oxygen at 3 L since then. The patient was diagnosed having acute coronary 19 related pneumonia, decompensated CHF and COPD exacerbation. She is known to have multiple medical problems and comorbidities. The patient was brought into the emergency. Her shortness of breath is vaccinated and waning although she feels that overall she has been stable over the past 1 month. She has no altered mentation. The daughter at the bedside tells that her mentation fluctuates. At times she is more lucid and other times more confused. Based on my evaluation this afternoon, the patient is fully alert and awake in oriented to time and place and people. Chest x-ray was still showing diffuse bilateral pulmonary infiltrates and a chest x-ray findings are essentially stable compared to the earlier evaluation from March 2021. She has been on Eliquis 2.5 mg by mouth twice a day and Lasix 20 mg by mouth twice daily on outpatient basis. No signs of any fluid overload. No angina. No palpitations. On 04/25/2021 patient seen in follow-up in the emergency department. She is still awaiting a bed on the monitor bed on selective care unit. This morning she had worsening oxygenation, and she was on 15 L per high flow nasal cannula and her pulse ox was down in the 70s, subsequently was placed on BiPAP support with pressures of 10.5 and FiO2 of 80%, yesterday she received a significant amount of IV fluid a total of 4 L, her ejection fraction is in the order of 30- 35% according to her previous echocardiogram. She was thought to be fluid overloaded and was given a dose of IV Lasix she started to diurese significantly, she started to feel better, she is already on Decadron 6 mg daily for recent history of Covid 19 pneumonia. She did test negative during this admission. Her chest x-ray yesterday showed worsening bilateral opacities on background of mild cardiomegaly and chronic emphysematous and pulmonary fibrotic changes. Patient is on anticoagulation with Eliquis 2.5 mg twice daily, however she is no on BiPAP, and she does quickly desaturate when the mask is taken off and for that reason she will be placed on IV heparin. She did have elevated d- dimer of 3.47 on today's labs. White blood cell count is 7.1, hemoglobin is 10.3, patient also continues on home dose Lasix 20 mg twice daily, she is on Symbicort and Ventolin inhaler, she is on Levaquin 500 mg once daily. Her IV fluids have been hep-locked. Home medications have been started again. She is awake and alert, she is able to make her needs known, does not appear to be in acute respiratory distress. Objective - Vital Signs Vital signs: Vital Signs Temp 98.5 F 04/24/21 12:45 Pulse 94 04/25/21 12:49 Resp 24 04/25/21 12:49 BP 111/76 04/25/21 12:49 Pulse Ox 97 04/25/21 12:49 Intake & Output 04/24/21 04/25/21 04/25/21 18:59 06:59 18:59 Output Total 900 Balance -900 Weight 56.699 kg 56.699 kg Output: Urine 900 - Exam GENERAL EXAM: Alert, pleasant, 85-year-old white female, currently on BiPAP support pressures of 10/5 and FiO2 of 80%, comfortable in no apparent distress. HEAD: Normocephalic/atraumatic. EYES: Normal reaction of pupils, equal size. Conjunctiva pink, sclera white. NOSE: Clear with pink turbinates. THROAT: No erythema or exudates. NECK: No masses, no JVD, no thyroid enlargement, no adenopathy. CHEST: No chest wall deformity. Symmetrical expansion. LUNGS: Equal air entry with diffuse crackles CVS: Regular rate and rhythm, normal S1 and S2, no gallops, no murmurs, no rubs ABDOMEN: Soft, nontender. No hepatosplenomegaly, normal bowel sounds, no guarding or rigidity. EXTREMITIES: No clubbing, no edema, no cyanosis, 2+ pulses and upper and lower extremities. MUSCULOSKELETAL: Muscle strength and tone normal. SPINE: No scoliosis or deformity SKIN: No rashes CENTRAL NERVOUS SYSTEM: Alert and oriented -3. No focal deficits, tone is normal in all 4 extremities. PSYCHIATRIC: Alert and oriented -3. Appropriate affect. Intact judgment and insight. - Labs CBC & Chem 7: 04/25/21 12:31 04/24/21 13:07 Labs: Abnormal Lab Results - Last 24 Hours (Table) 04/24/21 04/24/21 04/24/21 Range/Units 13:07 13:07 13:07 RBC (3.80-5.40) m/uL Hgb (11.4-16.0) gm/dL Hct (34.0-46.0) % MCV (80.0-100.0) fL MCHC (31.0-37.0) g/dL RDW (11.5-15.5) % Lymphocytes # (1.0-4.8) k/uL PT 12.8 H (9.0-12.0) sec INR 1.2 H (<1.2) D-Dimer (<0.60) mg/L FEU Sodium 130 L (137-145) mmol/L Chloride 97 L (98-107) mmol/L BUN 30 H (7-17) mg/dL Creatinine 1.45 H (0.52-1.04) mg/dL Glucose 140 H (74-99) mg/dL Calcium 8.1 L (8.4-10.2) mg/dL Troponin I 0.035 H* (0.000-0.034) ng/mL Total Protein 5.3 L (6.3-8.2) g/dL Albumin 2.6 L (3.5-5.0) g/dL Procalcitonin (0.02-0.09) ng/mL Urine Protein (Negative) Urine Opiates Screen (NotDetected) U Benzodiazepines Scrn (NotDetected) 04/24/21 04/24/21 04/24/21 Range/Units 13:07 13:47 18:23 RBC 2.85 L (3.80-5.40) m/uL Hgb 9.1 L (11.4-16.0) gm/dL Hct 29.4 L (34.0-46.0) % MCV 103.0 H (80.0-100.0) fL MCHC 30.9 L (31.0-37.0) g/dL RDW 16.8 H (11.5-15.5) % Lymphocytes # 0.5 L (1.0-4.8) k/uL PT (9.0-12.0) sec INR (<1.2) D-Dimer (<0.60) mg/L FEU Sodium (137-145) mmol/L Chloride (98-107) mmol/L BUN (7-17) mg/dL Creatinine (0.52-1.04) mg/dL Glucose (74-99) mg/dL Calcium (8.4-10.2) mg/dL Troponin I (0.000-0.034) ng/mL Total Protein (6.3-8.2) g/dL Albumin (3.5-5.0) g/dL Procalcitonin 0.13 H (0.02-0.09) ng/mL Urine Protein Trace H (Negative) Urine Opiates Screen Detected H (NotDetected) U Benzodiazepines Scrn Detected H (NotDetected) 04/25/21 04/25/21 04/25/21 Range/Units 00:33 12:31 12:31 RBC 2.95 L 3.32 L (3.80-5.40) m/uL Hgb 9.4 L 10.3 L (11.4-16.0) gm/dL Hct 29.7 L 33.8 L (34.0-46.0) % MCV 100.5 H 102.0 H (80.0-100.0) fL MCHC 30.6 L (31.0-37.0) g/dL RDW 16.4 H 16.7 H (11.5-15.5) % Lymphocytes # 0.4 L 0.4 L (1.0-4.8) k/uL PT (9.0-12.0) sec INR (<1.2) D-Dimer 3.47 H (<0.60) mg/L FEU Sodium (137-145) mmol/L Chloride (98-107) mmol/L BUN (7-17) mg/dL Creatinine (0.52-1.04) mg/dL Glucose (74-99) mg/dL Calcium (8.4-10.2) mg/dL Troponin I (0.000-0.034) ng/mL Total Protein (6.3-8.2) g/dL Albumin (3.5-5.0) g/dL Procalcitonin (0.02-0.09) ng/mL Urine Protein (Negative) Urine Opiates Screen (NotDetected) U Benzodiazepines Scrn (NotDetected) Assessment and Plan Plan: Assessment: #1. Acute on chronic hypoxic respiratory failure related to acute exacerbation of systolic CHF, and recent history of COVID-19 related pneumonia. Today patient had to be placed on BiPAP support with pressures of 10 and 5 and FiO2 of 80% for worsening hypoxia. Chest x-ray shows residual pulmonary infiltrates related to previous Covid 19 related pneumonia that occurred in August 2020. The patient was diagnosed having Covid 19 on 03/18/2021 and the patient was hospi talized between 03/22/2020 and 04/01/2020 and following that the patient was discharged to a fpc. She is still having hypoxemia and oxygen requirements remain unchanged at 3 L. Chest x-ray findings are still stable. Repeat Covid 19 testing came back negative. #2. CHF with systolic heart failure #3. Chronic atrial fibrillation #4. COPD #5. Chronic stage III kidney disease #6. Hypertension #7. Hyperlipidemia #8. 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 Debility with worsening weakness currently residing at [facility] on the [place] #10. Degenerative arthritis #11. Hard of hearing #12. Diverticular disease #13. Lumbar disc disease Plan: Continue BiPAP support Hep-Lock IV fluids Patient was given a dose of Lasix Switch oral Decadron to IV Decadron 6 mg daily We'll switch Eliquis to heparin infusion We'll obtain lower extremity Doppler We'll continue to follow her condition and make recommendations accordingly Follow-up chest x-ray and labs tomorrow I performed a history & physical examination of the patient and discussed their management with my nurse practitioner, Katherin Fox. I reviewed the nurse practitioner's note and agree with the documented findings and plan of care. Lung sounds are positive for dim breath sounds with crackles throughout the lung murguia. The findings and the impression was discussed with the patient. I attest to the documentation by the nurse practitioner. Time with Patient: Less than 30
[2021-04-25] MEDS: FUROSEMIDE 20 MG TAB PO SCH (13:59)
[2021-04-25] MEDS: BENZONATATE 100 MG CAP PO SCH ×2 (13:59→21:43)
[2021-04-25] MEDS: METOPROLOL TARTRATE 25 MG TAB PO SCH ×2 (13:59→21:40)
[2021-04-25] MEDS ORDERED: LEVOFLOXACIN 500 MG TAB PO SCH (14:00)
[2021-04-25] MEDS: SYMBICORT 80-4.5 MCG INHALER INHALATION SCH (20:29)
[2021-04-25] MEDS ORDERED: APIXABAN 2.5 MG TABLET PO SCH (21:00)
[2021-04-25] MEDS: HEPARIN SODIUM 1,000 UN/ML (10ML VL) IV PRN (21:38)
[2021-04-25] MEDS: MELATONIN 3 MG TABLET PO SCH (21:40)
[2021-04-25] MEDS: ACETAMINOPHEN TAB 325 MG TAB PO PRN (21:40)
[2021-04-25] MEDS: LORazepam 1 MG TAB PO SCH (21:40)
[2021-04-26] MEDS: HEPARIN SODIUM 1,000 UN/ML (10ML VL) IV PRN (00:54)
[2021-04-26] MEDS: BENZONATATE 100 MG CAP PO SCH ×3 (05:22→19:46)
[2021-04-26] MEDS: FUROSEMIDE 20 MG TAB PO SCH ×2 (06:39→12:59)
[2021-04-26] MEDS: METOPROLOL TARTRATE 25 MG TAB PO SCH ×3 (06:39→19:46)
--- NOTE | 2021-04-26 08:24 | XR ---
EXAMINATION TYPE: XR chest 1V portable DATE OF EXAM: 04/26/2021 COMPARISON: Chest x-ray 04/24/[address] chest 04/20/2014 HISTORY: Covid pneumonia TECHNIQUE: Single frontal view of the chest is obtained. FINDINGS: Bibasilar increased attenuation obscures the hemidiaphragms, this blunting the cost phreni c angles. Bilateral groundglass opacity, and pneumonia changes are present. No evident pneumothorax. Cardiac mediastinal silhouette is stable. Aorta is dense. There are overlying artifacts. IMPRESSION: Findings are similar to prior exam. Correlate for pneumonia, possible pleural effusions, congestive heart failure not excluded. There is underlying emphysema.
[2021-04-26 08:32] LABS: C Reactive Protein 4.6 mg/dL (<1.0); Calcium 8.2 mg/dL (8.4-10.2)
[2021-04-26 08:43] LABS: Anisocytosis Slight; Basophils % (A) 0 %; Eosinophils % (A) 0 %; HCT 32.3 % (34.0-46.0); HGB 9.8 gm/dL (11.4-16.0); Hypochromasia Marked; Lymphocytes # (A) 0.6 k/uL (1.0-4.8); Lymphocytes % (A) 8 %; MCHC 30.3 g/dL (31.0-37.0); MCV 102.5 fL (80.0-100.0); Macrocytosis Moderate; Mean Platelet Volume 7.6; Monocytes # (A) 0.3 k/uL (0-1.0); Monocytes % (A) 4 %; Neutrophils # (A) 6.6 k/uL (1.3-7.7); Neutrophils % (A) 87 %; Platelet Count 437 k/uL (150-450); Poikilocytosis Slight; RBC 3.15 m/uL (3.80-5.40); RDW 16.7 % (11.5-15.5); WBC 7.5 k/uL (3.8-10.6)
[2021-04-26 08:46] LABS: INR 1.2 (<1.2)
[2021-04-26] MEDS: TIOTROPIUM 2.5 MCG INHALER INHALATION SCH (08:50)
[2021-04-26] MEDS: SYMBICORT 80-4.5 MCG INHALER INHALATION SCH ×2 (08:51→20:46)
[2021-04-26] MEDS: ALBUTEROL HFA INHALER INHALATION SCH ×4 (08:51→20:46)
[2021-04-26] MEDS: SENNOSIDES-DOCUSATE SODIUM 1 EACH TAB PO SCH (08:54)
[2021-04-26] MEDS: DEXAMETHASONE SOD PHOSPHATE 10 MG/ML 1 ML VIAL IVP SCH (09:07)
[2021-04-26] MEDS: FERROUS SULFATE 325 MG TAB PO SCH (09:07)
[2021-04-26] MEDS: AMIODARONE 200 MG TAB PO SCH (09:07)
[2021-04-26] MEDS: CHOLECALCIFEROL 25 MCG (1000 IU) TABLET PO SCH (09:07)
--- NOTE | 2021-04-26 11:50 | P.PN ---
Subjective Progress Note Date: 04/26/21 Principal diagnosis: Shortness of breath 85-year-old female patient hospitalized for Covid 19 related long-term complications of pulmonary infiltration and hypoxemia. Note that the patient was Hospital as back in March 2021. The patient was discharged to [facility] on the [facility] on 04/01/2021 and she has been on oxygen at 3 L since then. The patient was diagnosed having acute coronary 19 related pneumonia, decompensated CHF and COPD exacerbation. She is known to have multiple medical problems and comorbidities. The patient was brought into the emergency. Her shortness of breath is vaccinated and waning although she feels that overall she has been stable over the past 1 month. She has no altered mentation. The daughter at the bedside tells that her mentation fluctuates. At times she is more lucid and other times more confused. Based on my evaluation this afternoon, the patient is fully alert and awake in oriented to time and place and people. Chest x-ray was still showing diffuse bilateral pulmonary infiltrates and a chest x-ray findings are essentially stable compared to the earlier evaluation from March 2021. She has been on Eliquis 2.5 mg by mouth twice a day and Lasix 20 mg by mouth twice daily on outpatient basis. No signs of any fluid overload. No angina. No palpitations. On 04/25/2021 patient seen in follow-up in the emergency department. She is still awaiting a bed on the monitor bed on selective care unit. This morning she had worsening oxygenation, and she was on 15 L per high flow nasal cannula and her pulse ox was down in the 70s, subsequently was placed on BiPAP support with pressures of 10.5 and FiO2 of 80%, yesterday she received a significant amount of IV fluid a total of 4 L, her ejection fraction is in the order of 30- 35% according to her previous echocardiogram. She was thought to be fluid overloaded and was given a dose of IV Lasix she started to diurese significantly, she started to feel better, she is already on Decadron 6 mg daily for recent history of Covid 19 pneumonia. She did test negative during this admission. Her chest x-ray yesterday showed worsening bilateral opacities on background of mild cardiomegaly and chronic emphysematous and pulmonary fibrotic changes. Patient is on anticoagulation with Eliquis 2.5 mg twice daily, however she is no on BiPAP, and she does quickly desaturate when the mask is taken off and for that reason she will be placed on IV heparin. She did have elevated d- dimer of 3.47 on today's labs. White blood cell count is 7.1, hemoglobin is 10.3, patient also continues on home dose Lasix 20 mg twice daily, she is on Symbicort and Ventolin inhaler, she is on Levaquin 500 mg once daily. Her IV fluids have been hep-locked. Home medications have been started again. She is awake and alert, she is able to make her needs known, does not appear to be in acute respiratory distress. On 04/26/2021 patient seen in follow-up on selective care unit, she is breathing much more comfortably, she remained on BiPAP support with pressures of 10 of 5 and FiO2 was cut back down to 50% last night, she is maintaining O2 saturations around 96%, she remains on IV diuretics at 40 mg every 12 hours, she is only modestly in the negative net fluid balance over the last 24 hours of -450 ML. Chest x-ray still showing blunting of the costophrenic angles, bilateral groundglass opacity, no evident pneumothorax. Overall fluid status is improved, and patient is breathing easier on today's labs. She remains on IV Decadron 6 mg daily, she is on multivitamins, inhaled bronchodilators, and IV heparin, her lower extremity Dopplers showed no evidence of DVT. Today's labs have been reviewed, white blood cell count is 7.5, hemoglobin is 9.8, platelet count is 437, INR is 1.2 d-dimer is improved and is down to 1.56 electrolytes are within normal limits, B1 is 33 creatinine is 1.16. LDH is 871, CRP is 4.6. Pro- calcitonin level was negative at 0.13. Objective - Vital Signs Vital signs: Vital Signs Temp 98.4 F 04/26/21 08:00 Pulse 87 04/26/21 08:00 Resp 20 04/26/21 08:00 BP 99/61 04/26/21 08:00 Pulse Ox 90 L 04/26/21 08:51 Intake & Output 04/25/21 04/26/21 04/26/21 18:59 06:59 18:59 Intake Total 87.054 76.658 Output Total 2350 450 Balance -2350 87.054 -373.342 Weight 56.699 kg 60.5 kg Intake: Intake, IV Titration 87.054 76.658 Amount Heparin Sod,Pork in 0.45% 87.054 76.658 NaCl 25,000 unit In 0.45 % NaCl 1 250ml.bag @ 12 UNITS/KG/HR 6.804 mls/hr IV .Q24H [facility] Rx#: [id number] Output: Urine 2350 450 Other: Voiding Method Indwelling Catheter - Exam GENERAL EXAM: Alert, pleasant, 85-year-old white female, currently on BiPAP support pressures of 10/5 and FiO2 of 50%, comfortable in no apparent distress. Patient is breathing much easier compared yesterday's exam, and we will be given a trial on nasal cannula. Patient is very hard of hearing HEAD: Normocephalic/atraumatic. EYES: Normal reaction of pupils, equal size. Conjunctiva pink, sclera white. NOSE: Clear with pink turbinates. Pressure injury from the BiPAP support on the bridge of the nose, BiPAP mask has been removed and patient was switched to nasal cannula THROAT: No erythema or exudates. NECK: No masses, no JVD, no thyroid enlargement, no adenopathy. CHEST: No chest wall deformity. Symmetrical expansion. LUNGS: Equal air entry with diffuse crackles CVS: Regular rate and rhythm, normal S1 and S2, no gallops, no murmurs, no rubs ABDOMEN: Soft, nontender. No hepatosplenomegaly, normal bowel sounds, no guarding or rigidity. EXTREMITIES: No clubbing, no edema, no cyanosis, 2+ pulses and upper and lower extremities. MUSCULOSKELETAL: Muscle strength and tone normal. SPINE: No scoliosis or deformity SKIN: No rashes CENTRAL NERVOUS SYSTEM: Alert and oriented -3. No focal deficits, tone is normal in all 4 extremities. PSYCHIATRIC: Alert and oriented -3. Appropriate affect. Intact judgment and insight. - Labs CBC & Chem 7: 04/26/21 07:21 04/26/21 07:21 Labs: Abnormal Lab Results - Last 24 Hours (Table) 04/25/21 04/25/21 04/25/21 Range/Units 12:31 12:31 18:24 RBC 3.32 L (3.80-5.40) m/uL Hgb 10.3 L (11.4-16.0) gm/dL Hct 33.8 L (34.0-46.0) % MCV 102.0 H (80.0-100.0) fL MCHC 30.6 L (31.0-37.0) g/dL RDW 16.7 H (11.5-15.5) % Lymphocytes # 0.4 L (1.0-4.8) k/uL PT (9.0-12.0) sec INR (<1.2) APTT 39.3 H (22.0-30.0) sec D-Dimer 3.47 H (<0.60) mg/L FEU BUN (7-17) mg/dL Creatinine (0.52-1.04) mg/dL Glucose (74-99) mg/dL Calcium (8.4-10.2) mg/dL Lactate Dehydrogenase (313-618) U/L C-Reactive Protein (<1.0) mg/dL 04/25/21 04/26/21 04/26/21 Range/Units 23:50 07:21 07:21 RBC 3.15 L (3.80-5.40) m/uL Hgb 9.8 L (11.4-16.0) gm/dL Hct 32.3 L (34.0-46.0) % MCV 102.5 H (80.0-100.0) fL MCHC 30.3 L (31.0-37.0) g/dL RDW 16.7 H (11.5-15.5) % Lymphocytes # 0.6 L (1.0-4.8) k/uL PT 13.0 H (9.0-12.0) sec INR 1.2 H (<1.2) APTT 38.3 H (22.0-30.0) sec D-Dimer 1.56 H (<0.60) mg/L FEU BUN (7-17) mg/dL Creatinine (0.52-1.04) mg/dL Glucose (74-99) mg/dL Calcium (8.4-10.2) mg/dL Lactate Dehydrogenase (313-618) U/L C-Reactive Protein (<1.0) mg/dL 04/26/21 04/26/21 Range/Units 07:21 07:21 RBC (3.80-5.40) m/uL Hgb (11.4-16.0) gm/dL Hct (34.0-46.0) % MCV (80.0-100.0) fL MCHC (31.0-37.0) g/dL RDW (11.5-15.5) % Lymphocytes # (1.0-4.8) k/uL PT (9.0-12.0) sec INR (<1.2) APTT 35.3 H (22.0-30.0) sec D-Dimer (<0.60) mg/L FEU BUN 33 H (7-17) mg/dL Creatinine 1.16 H (0.52-1.04) mg/dL Glucose 134 H (74-99) mg/dL Calcium 8.2 L (8.4-10.2) mg/dL Lactate Dehydrogenase 871 H (313-618) U/L C-Reactive Protein 4.6 H (<1.0) mg/dL Assessment and Plan Plan: Assessment: #1. Acute on chronic hypoxic respiratory failure related to acute exacerbation of systolic CHF, and recent history of COVID-19 related pneumonia. Currently improved, and patient is off the BiPAP support and on nasal cannula at 5 L, tolerating it well. Today patient had to be placed on BiPAP support with pressures of 10 and 5 and FiO2 of 80% for worsening hypoxia. Chest x-ray shows residual pulmonary infiltrates related to previous Covid 19 related pneumonia that occurred in August 2020. The patient was diagnosed having Covid 19 on 03/18/2021 and the patient was hospitalized between 03/22/2020 and 04/01/2020 and following that the patient was discharged to a care home. She is still having hypoxemia and oxygen requirements remain unchanged at 3 L. Chest x-ray findings are still stable. Repeat Covid 19 testing came back negative. #2. CHF with systolic heart failure #3. Chronic atrial fibrillation #4. COPD #5. Chronic stage III kidney disease #6. Hypertension #7. Hyperlipidemia #8. 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 Debility with worsening weakness currently residing at [facility] on the [address] #10. Degenerative arthritis #11. Hard of hearing #12. Diverticular disease #13. Lumbar disc disease Plan: Patient is tolerating nasal cannula trials Continue BiPAP as needed only Hep-Lock IV fluids Continue diuretics, continue Decadron We'll switch to heparin infusion back to Eliquis Lower extremity Dopplers are negative Continue multivitamins, will continue following her clinical course I performed a history & physical examination of the patient and discussed their management with my nurse practitioner, Katherin Fox. I reviewed the nurse practitioner's note and agree with the documented findings and plan of care. Lung sounds are positive for dim breath sounds with crackles throughout the lung murguia. The findings and the impression was discussed with the patient. I attest to the documentation by the nurse practitioner. Time with Patient: Less than 30
--- NOTE | 2021-04-26 11:57 | P.PN ---
Subjective Progress Note Date: 04/26/21 HISTORY OF PRESENT ILLNESS This is an 85-year-old female patient of Dr. Wills and Dr. Pagan with past medical history of chronic persistent atrial fibrillation, chronic systolic hear t failure, pulmonary hypertension, COPD with chronic hypoxic respiratory failure on home O2 at 3 L as needed, hypertension, hyperlipidemia, chronic kidney disease stage III, generalized osteoarthritis. A hat hospitalization early in March for acute hypoxic respiratory failure secondary to acute exacerbation of systolic heart failure, Covid 19 pneumonia and acute exacerbation of COPD and A. fib with RVR. Patient was discharged home with home care. She's was subsequently admitted on March 28 for same diagnoses and was discharged to [facility]. A is sent to us from [facility] due to confusion. Patient states that she is coughing all the time and has shortness of breath. She is on chronic ox ygen therapy. WBC 7.1, hemoglobin 9.1, platelet count 353. Sodium 130, potassium 4.2, chloride 97, CO2 28, BUN 30 creatinine 1.45. Glucose 140. Calcium 8.1. Total bilirubin 0.6, AST 31, ALT 17, alkaline phosphatase 76. Troponin 0.035. Pro- calcitonin 0.13. Urinalysis trace protein and negative for infection. Urine drug screen positive for opiates and benzodiazepines. Carotid virus PCR not detected. Patient presented to [facility] emergency center and found to be afebrile, heart rate 95, blood pressure 96/53, pulse ox 93% on 3 L nasal cannula but subsequently pulse ox dropped to 89% on 4 L nasal cannula and patient was placed on high flow nasal cannula 15 L. EKG was atrial fibrillation heart rate of 90. Chest x-ray reveals worsening bilateral opacities consistent with COVID19 infection progression on background mild cardiomegaly and chronic emphysematour and pulmonary fibrotic changes. Echocardiogram 03/23/2021 revealed EF of 30-35%, mild aortic regurgitation, m oderate mitral regurgitation, severe tricuspid regurgitation, severe pulmonary hypertension. Patient seen today in the ER waiting for bed on CSD unit. She has been seen by pulmonary medicine and was cleared yesterday to return to [facility] prior to the drop in pulse ox. 04/26: Patient is seen today on the cardiac stepdown unit. She is now on BiPAP with pulse ox 96%. Patient's been afebrile, heart rate 96, blood pressure 93/63. Patient is seen and followed by pulmonary medicine and recommend cont inuing BiPAP as needed only otherwise nasal cannula, continue diuretics and Decadron. Pulmonary has changed eliquis to heparin infusion. They ordered lower extremity Dopplers yesterday were negative for DVT. Repeat chest x-ray reveals findings similar to prior exam. Correlate for pneumonia, possible pleural effusions, heart failure not excluded. Underlying emphysema. REVIEW OF SYSTEMS Constitutional: No fever, no chills, no night sweats. No weight change. Noted weakness, noted fatigue noted lethargy. No daytime sleepiness. EENT: No headache. No blurred vision or double vision, no loss of vision. No loss of Hearing, no ringing in the ears, no dizziness. No nasal drainage or congestion. No epistaxis. No sore throat. Lungs: Reports shortness of breath, reports cough, no sputum production. No wheezing. Cardiovascular: No chest pain, no lower extremity edema. No palpitations. No paroxysmal nocturnal dyspnea. No orthopnea. No lightheadedness or dizziness. No syncopal episodes. Abdominal: No abdominal pain. No nausea, vomiting. No diarrhea. No constipation. No bloody or tarry stools. No loss of appetite. Genitourinary: No dysuria, increased frequency, urgency. No urinary retention. Musculoskeletal: No myalgias. No muscle weakness, no gait dysfunction, no frequent falls. No back pain. No neck pain. Integumentary: No wounds, no lesions. No rash or pruritus. No unusual bruising. No change in hair or nails. Neurologic: No aphasia. No facial droop. Reported change in mentation. No head injury. No headache. No paralysis. No paresthesia. Psychiatric: No depression. Reports anxiety. No mood swings. Endocrine: No abnormal blood sugars. No weight change. No excessive sweating or thirst. No cold intolerance. PHYSICAL EXAMINATION Gen: This is a thin 85-year-old female. She is resting on ER stretcher and appears to be comfortable and in no acute distress. He is currently on high flow nasal cannula 15 L. HEENT: Head is atraumatic, normocephalic. Pupils equal, round. Sclerae is anicteric. NECK: Supple. No JVD. No lymphadenopathy. No thyromegaly. LUNGS: Scattered crackles. No intercostal retractions. HEART: Irregularly irregular rate and rhythm. No murmur. ABDOMEN: Soft. Bowel sounds are present. No masses. No tenderness. EXTREMITIES: No pedal edema. No calf tenderness. Dorsalis pedis +2 bilaterally. NEUROLOGICAL: Patient is awake, alert and oriented x3. Cranial nerves 2 through 12 are grossly intact. ASSESSMENT AND PLAN 1. Acute on chronic hypoxic respiratory failure secondary to a residual Covid 19 pneumonia on top of chronic systolic heart failure, COPD, pulmonary fibrosis. Continue oxygen therapy, Currently on BiPAP with plan to transition to nasal cannula 2. Chronic systolic heart failure. Continue Lasix 20 mg oral twice daily. 3. Possible Covid 19 pneumonia. Pulmonary consult appreciated. Patient's been started on Ventolin inhaler 4 times daily, Symbicort 2 puffs twice daily, dexamethasone 6 mgoral daily, Spiriva. 4. COPD without exacerbation. Continue Symbicort, Spiriva, albuterol, dexamethasone. 5. Chronic persistent atrial fibrillation. Continue amiodarone 200 mg daily, Lopressor 75 mg 3 times daily.Continue heparin drip versus eliquis her pulmonary 6. Anemia of chronic disease. Continue to monitor. 7. Hypertension. Continue Lopressor. 8. Hyperlipidemia. Continue Lipitor 20 mg at bedtime. 9. Chronic kidney disease stage III. Monitor renal function, avoid nephrotoxic agents. 10. Valvular heart disease with mild aortic regurgitation, moderate mitral regurgitation, severe tricuspid regurgitation. 11. Severe pulmonary hypertension. 12. GI prophylaxis. Protonix. 13. DVT prophylaxis. Eliquis. 14. COVID-19 testing negative. Patient has been hospitalized during a pandemic. DISCHARGE PLAN Return to [facility]. Impression and plan of care have been directed as dictated by the signing physician. Margaret Pulliam nurse practitioner acting as scribe for signing physician. Objective - Vital Signs Vital signs: Vital Signs Temp 97.5 F L 04/26/21 03:26 Pulse 83 04/26/21 06:27 Resp 16 04/26/21 03:26 BP 112/67 04/26/21 06:27 Pulse Ox 96 04/26/21 03:26 Intake & Output 04/25/21 04/26/21 04/26/21 18:59 06:59 18:59 Intake Total 87.054 Output Total 2350 450 Balance -2350 87.054 -450 Weight 56.699 kg 60.5 kg Intake: Intake, IV Titration 87.054 Amount Heparin Sod,Pork in 0.45% 87.054 NaCl 25,000 unit In 0.45 % NaCl 1 250ml.bag @ 12 UNITS/KG/HR 6.804 mls/hr IV .Q24H [facility] Rx#: [id number] Output: Urine 2350 450 Other: Voiding Method Indwelling Catheter - Labs CBC & Chem 7: 04/26/21 07:21 04/26/21 07:21 Labs: Abnormal Lab Results - Last 24 Hours (Table) 04/25/21 04/25/21 04/25/21 Range/Units 12:31 12:31 18:24 RBC 3.32 L (3.80-5.40) m/uL Hgb 10.3 L (11.4-16.0) gm/dL Hct 33.8 L (34.0-46.0) % MCV 102.0 H (80.0-100.0) fL MCHC 30.6 L (31.0-37.0) g/dL RDW 16.7 H (11.5-15.5) % Lymphocytes # 0.4 L (1.0-4.8) k/uL APTT 39.3 H (22.0-30.0) sec D-Dimer 3.47 H (<0.60) mg/L FEU BUN (7-17) mg/dL Creatinine (0.52-1.04) mg/dL Glucose (74-99) mg/dL Calcium (8.4-10.2) mg/dL Lactate Dehydrogenase (313-618) U/L C-Reactive Protein (<1.0) mg/dL 04/25/21 04/26/21 Range/Units 23:50 07:21 RBC (3.80-5.40) m/uL Hgb (11.4-16.0) gm/dL Hct (34.0-46.0) % MCV (80.0-100.0) fL MCHC (31.0-37.0) g/dL RDW (11.5-15.5) % Lymphocytes # (1.0-4.8) k/uL APTT 38.3 H (22.0-30.0) sec D-Dimer (<0.60) mg/L FEU BUN 33 H (7-17) mg/dL Creatinine 1.16 H (0.52-1.04) mg/dL Glucose 134 H (74-99) mg/dL Calcium 8.2 L (8.4-10.2) mg/dL Lactate Dehydrogenase 871 H (313-618) U/L C-Reactive Protein 4.6 H (<1.0) mg/dL
[2021-04-26] MEDS: APIXABAN 2.5 MG TABLET PO SCH ×2 (12:59→19:46)
[2021-04-26] MEDS: LEVOFLOXACIN 250 MG TAB PO SCH (13:00)
[2021-04-26] MEDS: FUROSEMIDE 40 MG TAB PO SCH (16:20)
[2021-04-26] MEDS: ACETAMINOPHEN TAB 325 MG TAB PO PRN (19:45)
[2021-04-26] MEDS: LORazepam 1 MG TAB PO SCH (19:46)
[2021-04-26] MEDS: MELATONIN 3 MG TABLET PO SCH (19:46)
[2021-04-26 20:05] LABS: Glucose,Whole Blood 193 mg/dL (75-99)
[2021-04-26] MEDS: INSULIN ASPART (NovoLOG) 100 UNIT/ML VIAL SQ SCH (20:58)
[2021-04-27 06:06] LABS: Glucose,Whole Blood 136 mg/dL (75-99)
[2021-04-27] MEDS: METOPROLOL TARTRATE 25 MG TAB PO SCH ×3 (06:14→20:33)
[2021-04-27] MEDS: BENZONATATE 100 MG CAP PO SCH ×3 (06:14→20:33)
[2021-04-27] MEDS: FUROSEMIDE 40 MG TAB PO SCH ×2 (06:14→15:46)
[2021-04-27] MEDS: INSULIN ASPART (NovoLOG) 100 UNIT/ML VIAL SQ SCH ×4 (06:15→20:33)
[2021-04-27] MEDS: TIOTROPIUM 2.5 MCG INHALER INHALATION SCH (09:02)
[2021-04-27] MEDS: ALBUTEROL HFA INHALER INHALATION SCH ×4 (09:02→20:55)
[2021-04-27] MEDS: SYMBICORT 80-4.5 MCG INHALER INHALATION SCH ×2 (09:02→20:55)
[2021-04-27] MEDS: SENNOSIDES-DOCUSATE SODIUM 1 EACH TAB PO SCH (09:14)
[2021-04-27] MEDS: AMIODARONE 200 MG TAB PO SCH (09:14)
[2021-04-27] MEDS: CHOLECALCIFEROL 25 MCG (1000 IU) TABLET PO SCH (09:14)
[2021-04-27] MEDS: FERROUS SULFATE 325 MG TAB PO SCH (09:14)
[2021-04-27] MEDS: APIXABAN 2.5 MG TABLET PO SCH ×2 (09:15→20:33)
[2021-04-27] MEDS: DEXAMETHASONE SOD PHOSPHATE 10 MG/ML 1 ML VIAL IVP SCH (09:15)
[2021-04-27] MEDS: ACETAMINOPHEN TAB 325 MG TAB PO PRN ×2 (09:23→20:32)
--- NOTE | 2021-04-27 09:47 | P.PN ---
Subjective Progress Note Date: 04/27/21 Principal diagnosis: Shortness of breath 85-year-old female patient hospitalized for Covid 19 related long-term complications of pulmonary infiltration and hypoxemia. Note that the patient was Hospital as back in March 2021. The patient was discharged to [facility] [place] on 04/01/2021 and she has been on oxygen at 3 L since then. The patient was diagnosed having acute coronary 19 related pneumonia, decompensated CHF and COPD exacerbation. She is known to have multiple medical problems and comorbidities. The patient was brought into the emergency. Her shortness of breath is vaccinated and waning although she feels that overall she has been stable over the past 1 month. She has no altered mentation. The daughter at the bedside tells that her mentation fluctuates. At times she is more lucid and other times more confused. Based on my evaluation this afternoon, the patient is fully alert and awake in oriented to time and place and people. Chest x-ray was still showing diffuse bilateral pulmonary infiltrates and a chest x-ray findings are essentially stable compared to the earlier evaluation from March 2021. She has been on Eliquis 2.5 mg by mouth twice a day and Lasix 20 mg by mouth twice daily on outpatient basis. No signs of any fluid overload. No angina. No palpitations. On 04/25/2021 patient seen in follow-up in the emergency department. She is still awaiting a bed on the monitor bed on selective care unit. This morning she had worsening oxygenation, and she was on 15 L per high flow nasal cannula and her pulse ox was down in the 70s, subsequently was placed on BiPAP support with pressures of 10.5 and FiO2 of 80%, yesterday she received a significant amount of IV fluid a total of 4 L, her ejection fraction is in the order of 30- 35% according to her previous echocardiogram. She was thought to be fluid overloaded and was given a dose of IV Lasix she started to diurese significantly, she started to feel better, she is already on Decadron 6 mg daily for recent history of Covid 19 pneumonia. She did test negative during this admission. Her chest x-ray yesterday showed worsening bilateral opacities on background of mild cardiomegaly and chronic emphysematous and pulmonary fibrotic changes. Patient is on anticoagulation with Eliquis 2.5 mg twice daily, however she is no on BiPAP, and she does quickly desaturate when the mask is taken off and for that reason she will be placed on IV heparin. She did have elevated d- dimer of 3.47 on today's labs. White blood cell count is 7.1, hemoglobin is 10.3, patient also continues on home dose Lasix 20 mg twice daily, she is on Symbicort and Ventolin inhaler, she is on Levaquin 500 mg once daily. Her IV fluids have been hep-locked. Home medications have been started again. She is awake and alert, she is able to make her needs known, does not appear to be in acute respiratory distress. On 04/26/2021 patient seen in follow-up on selective care unit, she is breathing much more comfortably, she remained on BiPAP support with pressures of 10 of 5 and FiO2 was cut back down to 50% last night, she is maintaining O2 saturations around 96%, she remains on IV diuretics at 40 mg every 12 hours, she is only modestly in the negative net fluid balance over the last 24 hours of -450 ML. Chest x-ray still showing blunting of the costophrenic angles, bilateral groundglass opacity, no evident pneumothorax. Overall fluid status is improved, and patient is breathing easier on today's labs. She remains on IV Decadron 6 mg daily, she is on multivitamins, inhaled bronchodilators, and IV heparin, her lower extremity Dopplers showed no evidence of DVT. Today's labs have been reviewed, white blood cell count is 7.5, hemoglobin is 9.8, platelet count is 437, INR is 1.2 d-dimer is improved and is down to 1.56 electrolytes are within normal limits, B1 is 33 creatinine is 1.16. LDH is 871, CRP is 4.6. Pro- calcitonin level was negative at 0.13. On 04/27/2021 patient seen in follow-up on selective care unit, she did wear her BiPAP support last night, she has been switched over to high flow nasal cannula currently at 8 L/min, on socks is 94%, she seems to be breathing comfortable, does not appear to be in any acute distress although the patient states that she does not feel any better since she came into the hospital. Yesterday we increased her maintenance dose of oral Lasix to 40 mg twice daily and she is in -378 ml negative net fluid balance over the last 24 hours, as far as COVID-19 treatment patient remains on Decadron 6 mg daily, she is on Eliquis2.5 milligrams twice daily, she continues on empiric antibiotics in the form of Levaquin, inhaled bronchodilators, Tessalon Perles for cough, although she denies any significant cough or production. Lung sounds reveal diffuse crackles bilaterally, no wheezing. Objective - Vital Signs Vital signs: Vital Signs Temp 97.9 F 04/27/21 03:53 Pulse 93 04/27/21 09:05 Resp 20 04/27/21 09:05 BP 105/57 04/27/21 09:05 Pulse Ox 94 L 04/27/21 09:06 Intake & Output 04/26/21 04/27/21 04/27/21 18:59 06:59 18:59 Intake Total 796.658 118 Output Total 825 350 Balance -28.342 -350 118 Weight 60.5 kg 61 kg Intake: Intake, IV Titration 76.658 Amount Heparin Sod,Pork in 0.45% 76.658 NaCl 25,000 unit In 0.45 % NaCl 1 250ml.bag @ 12 UNITS/KG/HR 6.804 mls/hr IV .Q24H [facility] Rx#: [id number] Oral 720 118 Output: Urine 825 350 Straight 375 Other: Voiding Method External Catheter # Bowel Movements 1 - Exam GENERAL EXAM: Alert, pleasant, 85-year-old white female, currently on liters of oxygen with a pulse ox of 94% comfortable in no apparent distress. Patient is breathing much easier compared yesterday's exam, and we will be given a trial on nasal cannula. Patient is very hard of hearing HEAD: Normocephalic/atraumatic. EYES: Normal reaction of pupils, equal size. Conjunctiva pink, sclera white. NOSE: Clear with pink turbinates. Pressure injury from the BiPAP support on the bridge of the nose, BiPAP mask has been removed and patient was switched to nasal cannula THROAT: No erythema or exudates. NECK: No masses, no JVD, no thyroid enlargement, no adenopathy. CHEST: No chest wall deformity. Symmetrical expansion. LUNGS: Equal air entry with diffuse crackles CVS: Regular rate and rhythm, normal S1 and S2, no gallops, no murmurs, no rubs ABDOMEN: Soft, nontender. No hepatosplenomegaly, normal bowel sounds, no guarding or rigidity. EXTREMITIES: No clubbing, no edema, no cyanosis, 2+ pulses and upper and lower extremities. MUSCULOSKELETAL: Muscle strength and tone normal. SPINE: No scoliosis or deformity SKIN: No rashes CENTRAL NERVOUS SYSTEM: Alert and oriented -3. No focal deficits, tone is normal in all 4 extremities. PSYCHIATRIC: Alert and oriented -3. Appropriate affect. Intact judgment and insight. - Labs CBC & Chem 7: 04/26/21 07:21 04/26/21 07:21 Labs: Abnormal Lab Results - Last 24 Hours (Table) 04/26/21 04/27/21 Range/Units 19:56 06:03 POC Glucose (mg/dL) 193 H 136 H (75-99) mg/dL Assessment and Plan Plan: Assessment: #1. Acute on chronic hypoxic respiratory failure related to acute exacerbation of systolic CHF, and recent history of COVID-19 related pneumonia. Currently improved, and patient is off the BiPAP support and on nasal cannula at 5 L, tolerating it well. Today patient had to be placed on BiPAP support with pressures of 10 and 5 and FiO2 of 80% for worsening hypoxia. Chest x-ray shows residual pulmonary infiltrates related to previous Covid 19 related pneumonia that occurred in August 2020. The patient was diagnosed having Covid 19 on 03/18/2021 and the patient was hospitalized between 03/22/2020 and 04/01/2020 and following that the patient was discharged to a shelter. She is still having hypoxemia and oxygen requirements remain unchanged at 3 L. Chest x-ray findings are still stable. Repeat Covid 19 testing came back negative. #2. CHF with systolic heart failure #3. Chronic atrial fibrillation #4. COPD #5. Chronic stage III kidney disease #6. Hypertension #7. Hyperlipidemia #8. 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 Debility with worsening weakness currently residing at [facility] [place] #10. Degenerative arthritis #11. Hard of hearing #12. Diverticular disease #13. Lumbar disc disease Plan: We'll continue with oral diuretics with Lasix 40 mg twice daily Continue current does Decadron 6 mg daily Continue Eliquis, multivitamins BiPAP support as needed and at bedtime Titrate FiO2 to keep O2 sats is at 90% Increase activity as tolerated Follow-up chest x-ray and labs tomorrow Follow-up inflammatory markers and d-dimer tomorrow We'll follow her clinical course I performed a history & physical examination of the patient and discussed their management with my nurse practitioner, Katherin Fox. I reviewed the nurse practitioner's note and agree with the documented findings and plan of care. Lung sounds are positive for dim breath sounds with crackles throughout the lung [place]. The findings and the impression was discussed with the patient. I at test to the documentation by the nurse practitioner. Time with Patient: Less than 30
[2021-04-27 11:51] LABS: Glucose,Whole Blood 139 mg/dL (75-99)
[2021-04-27] MEDS: LEVOFLOXACIN 250 MG TAB PO SCH (15:47)
[2021-04-27 16:57] LABS: Glucose,Whole Blood 227 mg/dL (75-99)
[2021-04-27 19:59] LABS: Glucose,Whole Blood 206 mg/dL (75-99)
[2021-04-27] MEDS: MELATONIN 3 MG TABLET PO SCH (20:33)
[2021-04-27] MEDS: LORazepam 1 MG TAB PO SCH (20:33)
[2021-04-28] MEDS: FUROSEMIDE 40 MG TAB PO SCH ×2 (04:57→17:13)
[2021-04-28] MEDS: BENZONATATE 100 MG CAP PO SCH ×3 (04:57→22:06)
[2021-04-28 06:14] LABS: Anisocytosis Slight; Basophils % (A) 0 %; Eosinophils # (A) 0.1 k/uL (0-0.7); Eosinophils % (A) 1 %; HCT 34.6 % (34.0-46.0); HGB 10.6 gm/dL (11.4-16.0); Hypochromasia Marked; Lymphocytes # (A) 0.5 k/uL (1.0-4.8); Lymphocytes % (A) 5 %; MCH 31.4 pg (25.0-35.0); MCHC 30.7 g/dL (31.0-37.0); MCV 102.5 fL (80.0-100.0); Macrocytosis Moderate; Mean Platelet Volume 7.4; Monocytes # (A) 0.5 k/uL (0-1.0); Monocytes % (A) 5 %; Neutrophils # (A) 8.5 k/uL (1.3-7.7); Neutrophils % (A) 88 %; Platelet Count 422 k/uL (150-450); Poikilocytosis Slight; RBC 3.38 m/uL (3.80-5.40); RDW 16.2 % (11.5-15.5); WBC 9.6 k/uL (3.8-10.6)
[2021-04-28 06:29] LABS: Calcium 8.5 mg/dL (8.4-10.2); Potassium 4.6 mmol/L (3.5-5.1); Total Bilirubin 0.5 mg/dL (0.2-1.3); Total Protein 5.8 g/dL (6.3-8.2)
[2021-04-28 06:49] LABS: Glucose,Whole Blood 82 mg/dL (75-99)
[2021-04-28] MEDS: INSULIN ASPART (NovoLOG) 100 UNIT/ML VIAL SQ SCH ×4 (07:28→22:05)
[2021-04-28] MEDS: TIOTROPIUM 2.5 MCG INHALER INHALATION SCH (07:37)
[2021-04-28] MEDS: ALBUTEROL HFA INHALER INHALATION SCH ×4 (07:37→19:41)
[2021-04-28] MEDS: SYMBICORT 80-4.5 MCG INHALER INHALATION SCH ×2 (07:38→19:41)
[2021-04-28] MEDS: ACETAMINOPHEN TAB 325 MG TAB PO PRN ×3 (07:45→23:14)
[2021-04-28] MEDS: FERROUS SULFATE 325 MG TAB PO SCH (07:45)
[2021-04-28] MEDS: METOPROLOL TARTRATE 25 MG TAB PO SCH ×3 (07:45→22:06)
[2021-04-28] MEDS: CHOLECALCIFEROL 25 MCG (1000 IU) TABLET PO SCH (07:46)
[2021-04-28] MEDS: SENNOSIDES-DOCUSATE SODIUM 1 EACH TAB PO SCH (07:46)
[2021-04-28] MEDS: APIXABAN 2.5 MG TABLET PO SCH ×2 (07:46→22:05)
[2021-04-28] MEDS: DEXAMETHASONE SOD PHOSPHATE 10 MG/ML 1 ML VIAL IVP SCH (07:46)
[2021-04-28] MEDS: AMIODARONE 200 MG TAB PO SCH (07:46)
--- NOTE | 2021-04-28 07:55 | XR ---
EXAMINATION TYPE: XR chest 1V portable DATE OF EXAM: 04/28/2021 Comparison: 04/26/2021 Clinical History: 85-year-old female covid Findings: Heart upper limits of normal in size. Hyperinflation. Interstitial and patchy opacities persist espec ially in the midlung regions. There may be slight improvement in aeration. Trace also be present. Impression: 1. COPD with continued bilateral interstitial and patchy infiltrates, greatest at the mid lungs. Ther e may be slight interval improvement. 2. Suspect trace pleural effusions.
[2021-04-28 08:33] LABS: C Reactive Protein 1.7 mg/dL (<1.0)
[2021-04-28 11:15] LABS: Glucose,Whole Blood 216 mg/dL (75-99)
--- NOTE | 2021-04-28 11:48 | P.PN ---
Subjective Progress Note Date: 04/28/21 Principal diagnosis: Shortness of breath 85-year-old female patient hospitalized for Covid 19 related long-term complications of pulmonary infiltration and hypoxemia. Note that the patient was Hospital as back in March 2021. The patient was discharged to [facility] [place] on 04/01/2021 and she has been on oxygen at 3 L since then. The patient was diagnosed having acute coronary 19 related pneumonia, decompensated CHF and COPD exacerbation. She is known to have multiple medical problems and comorbidities. The patient was brought into the emergency. Her shortness of breath is vaccinated and waning although she feels that overall she has been stable over the past 1 month. She has no altered mentation. The daughter at the bedside tells that her mentation fluctuates. At times she is more lucid and other times more confused. Based on my evaluation this afternoon, the patient is fully alert and awake in oriented to time and place and people. Chest x-ray was still showing diffuse bilateral pulmonary infiltrates and a chest x-ray findings are essentially stable compared to the earlier evaluation from March 2021. She has been on Eliquis 2.5 mg by mouth twice a day and Lasix 20 mg by mouth twice daily on outpatient basis. No signs of any fluid overload. No angina. No palpitations. On 04/25/2021 patient seen in follow-up in the emergency department. She is still awaiting a bed on the monitor bed on selective care unit. This morning she had worsening oxygenation, and she was on 15 L per high flow nasal cannula and her pulse ox was down in the 70s, subsequently was placed on BiPAP support with pressures of 10.5 and FiO2 of 80%, yesterday she received a significant amount of IV fluid a total of 4 L, her ejection fraction is in the order of 30- 35% according to her previous echocardiogram. She was thought to be fluid overloaded and was given a dose of IV Lasix she started to diurese significantly, she started to feel better, she is already on Decadron 6 mg daily for recent history of Covid 19 pneumonia. She did test negative during this admission. Her chest x-ray yesterday showed worsening bilateral opacities on background of mild cardiomegaly and chronic emphysematous and pulmonary fibrotic changes. Patient is on anticoagulation with Eliquis 2.5 mg twice daily, however she is no on BiPAP, and she does quickly desaturate when the mask is taken off and for that reason she will be placed on IV heparin. She did have elevated d- dimer of 3.47 on today's labs. White blood cell count is 7.1, hemoglobin is 10.3, patient also continues on home dose Lasix 20 mg twice daily, she is on Symbicort and Ventolin inhaler, she is on Levaquin 500 mg once daily. Her IV fluids have been hep-locked. Home medications have been started again. She is awake and alert, she is able to make her needs known, does not appear to be in acute respiratory distress. On 04/26/2021 patient seen in follow-up on selective care unit, she is breathing much more comfortably, she remained on BiPAP support with pressures of 10 of 5 and FiO2 was cut back down to 50% last night, she is maintaining O2 saturations around 96%, she remains on IV diuretics at 40 mg every 12 hours, she is only modestly in the negative net fluid balance over the last 24 hours of -450 ML. Chest x-ray still showing blunting of the costophrenic angles, bilateral groundglass opacity, no evident pneumothorax. Overall fluid status is improved, and patient is breathing easier on today's labs. She remains on IV Decadron 6 mg daily, she is on multivitamins, inhaled bronchodilators, and IV heparin, her lower extremity Dopplers showed no evidence of DVT. Today's labs have been reviewed, white blood cell count is 7.5, hemoglobin is 9.8, platelet count is 437, INR is 1.2 d-dimer is improved and is down to 1.56 electrolytes are within normal limits, B1 is 33 creatinine is 1.16. LDH is 871, CRP is 4.6. Pro- calcitonin level was negative at 0.13. On 04/27/2021 patient seen in follow-up on selective care unit, she did wear her BiPAP support last night, she has been switched over to high flow nasal cannula currently at 8 L/min, on socks is 94%, she seems to be breathing comfortable, does not appear to be in any acute distress although the patient states that she does not feel any better since she came into the hospital. Yesterday we increased her maintenance dose of oral Lasix to 40 mg twice daily and she is in -378 ml negative net fluid balance over the last 24 hours, as far as COVID-19 treatment patient remains on Decadron 6 mg daily, she is on Eliquis2.5 milligrams twice daily, she continues on empiric antibiotics in the form of Levaquin, inhaled bronchodilators, Tessalon Perles for cough, although she denies any significant cough or production. Lung sounds reveal diffuse crackles bilaterally, no wheezing. On 04/28/2021 patient seen in follow-up on that a surgical floor. She is currently sitting up in the recliner, she did wear BiPAP support last night with pressures of 10 of 5 and FiO2 of 50%, she is currently on high flow nasal cannula at 6 L and her pulse ox is 91%. Appears to be breathing comfortably, does not appear to be any need acute distress, no accessory muscle use. Occasional cough, mildly congested. Lung sounds are positive for scattered bibasilar crackles, but overall seems to be improved from admission. Patient continues on oral Lasix 40 mg twice daily, she continues on Decadron 6 blood gram daily, she is on oral anticoagulation, she is on inhaled bronchodilators. She is maintaining negative net fluid balance, she is in -378 mL net fluid balance over the last 24 hours, her chest x-ray shows some improvement in the appearance of bilateral pleural effusions. No lower extremity swelling. Objective - Vital Signs Vital signs: Vital Signs Temp 97.4 F L 04/28/21 07:14 Pulse 52 L 04/28/21 07:14 Resp 16 04/28/21 07:54 BP 103/68 04/28/21 07:14 Pulse Ox 91 L 04/28/21 07:14 Intake & Output 04/27/21 04/28/21 04/28/21 18:59 06:59 18:59 Intake Total 354 Output Total 900 975 Balance -546 -975 Weight 60.5 kg Intake: Oral 354 Output: Urine 900 975 Other: Voiding Method Indwelling Catheter - Exam GENERAL EXAM: Alert, pleasant, 85-year-old white female, currently on 6 liters of oxygen with a pulse ox of 94% comfortable in no apparent distress. Patient is breathing much easier compared yesterday's exam, and we will be given a trial on nasal cannula. Patient is very hard of hearing HEAD: Normocephalic/atraumatic. EYES: Normal reaction of pupils, equal size. Conjunctiva pink, sclera white. NOSE: Clear with pink turbinates. Pressure injury from the BiPAP support on the bridge of the nose, BiPAP mask has been removed and patient was switched to nasal cannula THROAT: No erythema or exudates. NECK: No masses, no JVD, no thyroid enlargement, no adenopathy. CHEST: No chest wall deformity. Symmetrical expansion. LUNGS: Equal air entry with diffuse crackles CVS: Regular rate and rhythm, normal S1 and S2, no gallops, no murmurs, no rubs ABDOMEN: Soft, nontender. No hepatosplenomegaly, normal bowel sounds, no guarding or rigidity. EXTREMITIES: No clubbing, no edema, no cyanosis, 2+ pulses and upper and lower extremities. MUSCULOSKELETAL: Muscle strength and tone normal. SPINE: No scoliosis or deformity SKIN: No rashes CENTRAL NERVOUS SYSTEM: Alert and oriented -3. No focal deficits, tone is normal in all 4 extremities. PSYCHIATRIC: Alert and oriented -3. Appropriate affect. Intact judgment and insight. - Labs CBC & Chem 7: 04/28/21 05:28 04/28/21 05:28 Labs: Abnormal Lab Results - Last 24 Hours (Table) 04/27/21 04/27/21 04/27/21 Range/Units 11:49 16:56 19:57 RBC (3.80-5.40) m/uL Hgb (11.4-16.0) gm/dL MCV (80.0-100.0) fL MCHC (31.0-37.0) g/dL RDW (11.5-15.5) % Neutrophils # (1.3-7.7) k/uL Lymphocytes # (1.0-4.8) k/uL D-Dimer (<0.60) mg/L FEU Sodium (137-145) mmol/L BUN (7-17) mg/dL Creatinine (0.52-1.04) mg/dL POC Glucose (mg/dL) 139 H 227 H 206 H (75-99) mg/dL AST (14-36) U/L ALT (4-34) U/L Lactate Dehydrogenase (313-618) U/L C-Reactive Protein (<1.0) mg/dL Total Protein (6.3-8.2) g/dL Albumin (3.5-5.0) g/dL 04/28/21 04/28/21 04/28/21 Range/Units 05:28 05:28 05:28 RBC 3.38 L (3.80-5.40) m/uL Hgb 10.6 L (11.4-16.0) gm/dL MCV 102.5 H (80.0-100.0) fL MCHC 30.7 L (31.0-37.0) g/dL RDW 16.2 H (11.5-15.5) % Neutrophils # 8.5 H (1.3-7.7) k/uL Lymphocytes # 0.5 L (1.0-4.8) k/uL D-Dimer 2.81 H (<0.60) mg/L FEU Sodium 135 L (137-145) mmol/L BUN 42 H (7-17) mg/dL Creatinine 1.07 H (0.52-1.04) mg/dL POC Glucose (mg/dL) (75-99) mg/dL AST 106 H (14-36) U/L ALT 124 H (4-34) U/L Lactate Dehydrogenase 853 H (313-618) U/L C-Reactive Protein 1.7 H (<1.0) mg/dL Total Protein 5.8 L (6.3-8.2) g/dL Albumin 3.0 L (3.5-5.0) g/dL 04/28/21 Range/Units 11:13 RBC (3.80-5.40) m/uL Hgb (11.4-16.0) gm/dL MCV (80.0-100.0) fL MCHC (31.0-37.0) g/dL RDW (11.5-15.5) % Neutrophils # (1.3-7.7) k/uL Lymphocytes # (1.0-4.8) k/uL D-Dimer (<0.60) mg/L FEU Sodium (137-145) mmol/L BUN (7-17) mg/dL Creatinine (0.52-1.04) mg/dL POC Glucose (mg/dL) 216 H (75-99) mg/dL AST (14-36) U/L ALT (4-34) U/L Lactate Dehydrogenase (313-618) U/L C-Reactive Protein (<1.0) mg/dL Total Protein (6.3-8.2) g/dL Albumin (3.5-5.0) g/dL Assessment and Plan Plan: Assessment: #1. Acute on chronic hypoxic respiratory failure related to acute exacerbation of systolic CHF, and recent history of COVID-19 related pneumonia. Currently improved, and patient is off the BiPAP support and on nasal cannula at 5 L, tolerating it well. Today patient had to be placed on BiPAP support with pressures of 10 and 5 and FiO2 of 80% for worsening hypoxia. Chest x-ray shows residual pulmonary infiltrates related to previous Covid 19 related pneumonia that occurred in August 2020. The patient was diagnosed having Covid 19 on 03/18/2021 and the patient was hospitalized between 03/22/2020 and 04/01/2020 and following that the patient was discharged to a long term. She is still having hypoxemia and oxygen requirements remain unchanged at 3 L. Chest x-ray findings are still stable. Repeat Covid 19 testing came back negative. #2. CHF with systolic heart failure #3. Chronic atrial fibrillation #4. COPD #5. Chronic stage III kidney disease #6. Hypertension #7. Hyperlipidemia #8. 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 Debility with worsening weakness currently residing at [facility] [place] #10. Degenerative arthritis #11. Hard of hearing #12. Diverticular disease #13. Lumbar disc disease Plan: No worsening dyspnea Vital signs have been stable, Appears to be breathing comfortably, Minimal cough We'll continue with oral diuretics with Lasix 40 mg twice daily Continue current does Decadron 6 mg daily Continue Eliquis, multivitamins BiPAP support as needed and at bedtime Titrate FiO2 to keep O2 sats is at 90% Increase activity as tolerated We'll continue to follow her clinical course Seems to be very depressed. I performed a history & physical examination of the patient and discussed their management with my nurse practitioner, Katherin Fox. I reviewed the nurse practitioner's note and agree with the documented findings and plan of care. Lung sounds are positive for dim breath sounds with crackles throughout the lung [place]. The findings and the impression was discussed with the patient. I attest to the documentation by the nurse practitioner. Time with Patient: Less than 30
--- NOTE | 2021-04-28 11:53 | P.PN ---
Subjective Progress Note Date: 04/27/21 HISTORY OF PRESENT ILLNESS This is an 85-year-old female patient of Dr. Wills and Dr. Pagan with past medical history of chronic persistent atrial fibrillation, chronic systolic hear t failure, pulmonary hypertension, COPD with chronic hypoxic respiratory failure on home O2 at 3 L as needed, hypertension, hyperlipidemia, chronic kidney disease stage III, generalized osteoarthritis. A hat hospitalization early in March for acute hypoxic respiratory failure secondary to acute exacerbation of systolic heart failure, Covid 19 pneumonia and acute exacerbation of COPD and A. fib with RVR. Patient was discharged home with home care. She's was subsequently admitted on March 28 for same diagnoses and was discharged to [facility]. A is sent to us from [facility] due to confusion. Patient states that she is coughing all the time and has shortness of breath. She is on chronic ox ygen therapy. WBC 7.1, hemoglobin 9.1, platelet count 353. Sodium 130, potassium 4.2, chloride 97, CO2 28, BUN 30 creatinine 1.45. Glucose 140. Calcium 8.1. Total bilirubin 0.6, AST 31, ALT 17, alkaline phosphatase 76. Troponin 0.035. Pro- calcitonin 0.13. Urinalysis trace protein and negative for infection. Urine drug screen positive for opiates and benzodiazepines. Carotid virus PCR not detected. Patient presented to [facility] emergency center and found to be afebrile, heart rate 95, blood pressure 96/53, pulse ox 93% on 3 L nasal cannula but subsequently pulse ox dropped to 89% on 4 L nasal cannula and patient was placed on high flow nasal cannula 15 L. EKG was atrial fibrillation heart rate of 90. Chest x-ray reveals worsening bilateral opacities consistent with COVID19 infection progression on background mild cardiomegaly and chronic emphysematour and pulmonary fibrotic changes. Echocardiogram 03/23/2021 revealed EF of 30-35%, mild aortic regurgitation, m oderate mitral regurgitation, severe tricuspid regurgitation, severe pulmonary hypertension. Patient seen today in the ER waiting for bed on CSD unit. She has been seen by pulmonary medicine and was cleared yesterday to return to [facility] prior to the drop in pulse ox. 04/26: Patient is seen today on the cardiac stepdown unit. She is now on BiPAP with pulse ox 96%. Patient's been afebrile, heart rate 96, blood pressure 93/63. Patient is seen and followed by pulmonary medicine and recommend cont inuing BiPAP as needed only otherwise nasal cannula, continue diuretics and Decadron. Pulmonary has changed eliquis to heparin infusion. They ordered lower extremity Dopplers yesterday were negative for DVT. Repeat chest x-ray reveals findings similar to prior exam. Correlate for pneumonia, possible pleural effusions, heart failure not excluded. Underlying emphysema. 04/27: Patient is having urinary retention and required a straight cath 2 and now has 500 ML's on bladder scan, Callaway catheter to be placed. Patient has been afebrile, heart rate in the 80s and 90s, blood pressure 99/61, pulse ox 96% on 5 L nasal cannula. Levaquin nebulizers and Tessalon Perles. Oxygenation is improving. Patient is followed closely by pulmonary medicine. We'll plan to transfer the patient to [facility] with telemetry. REVIEW OF SYSTEMS Constitutional: No fever, no chills, no night sweats. No weight change. Noted weakness, noted fatigue noted lethargy. No daytime sleepiness. EENT: No headache. No blurred vision or double vision, no loss of vision. No loss of Hearing, no ringing in the ears, no dizziness. No nasal drainage or congestion. No epistaxis. No sore throat. Lungs: Reports shortness of breathimproving, reports cough, no sputum production. No wheezing. Cardiovascular: No chest pain, no lower extremity edema. No palpitations. No paroxysmal nocturnal dyspnea. No orthopnea. No lightheadedness or dizziness. No syncopal episodes. Abdominal: No abdominal pain. No nausea, vomiting. No diarrhea. No constipation. No bloody or tarry stools. No loss of appetite. Genitourinary: No dysuria, increased frequency, urgency. No urinary retention. Musculoskeletal: No myalgias. No muscle weakness, no gait dysfunction, no frequent falls. No back pain. No neck pain. Integumentary: No wounds, no lesions. No rash or pruritus. No unusual bruising. No change in hair or nails. Neurologic: No aphasia. No facial droop. Reported change in mentation. No head injury. No headache. No paralysis. No paresthesia. Psychiatric: No depression. Reports anxiety. No mood swings. Endocrine: No abnormal blood sugars. No weight change. No excessive sweating or thirst. No cold intolerance. PHYSICAL EXAMINATION Gen: This is a thin 85-year-old female. She is resting in bed and appears to be comfortable and in no acute distress. HEENT: Head is atraumatic, normocephalic. Pupils equal, round. Sclerae is anicteric. NECK: Supple. No JVD. No lymphadenopathy. No thyromegaly. LUNGS: Scattered crackles. No wheezing. No intercostal retractions. HEART: Irregularly irregular rate and rhythm. No murmur. ABDOMEN: Soft. Bowel sounds are present. No masses. No tenderness. EXTREMITIES: No pedal edema. No calf tenderness. Dorsalis pedis +2 bilaterally. NEUROLOGICAL: Patient is awake, alert and oriented x3. Cranial nerves 2 through 12 are grossly intact. ASSESSMENT AND PLAN 1. Acute on chronic hypoxic respiratory failure secondary to a residual Covid 19 pneumonia on top of chronic systolic heart failure, COPD, pulmonary fibrosis. Continue oxygen therapy, Currently on BiPAP with plan to transition to nasal cannula 2. Chronic systolic heart failure. Continue Lasix 20 mg oral twice daily. 3. Possible Covid 19 pneumonia. Pulmonary consult appreciated. Patient's been started on Ventolin inhaler 4 times daily, Symbicort 2 puffs twice daily, dexamethasone 6 mgoral daily, Spiriva, Tessalon Perles. 4. COPD without exacerbation. Continue Symbicort, Spiriva, albuterol, dexa methasone. 5. Chronic persistent atrial fibrillation. Continue amiodarone 200 mg daily, Lopressor 75 mg 3 times daily.Continue heparin drip versus eliquis her pulmonary 6. Anemia of chronic disease. Continue to monitor. 7. Hypertension. Continue Lopressor. 8. Hyperlipidemia. Continue Lipitor 20 mg at bedtime. 9. Chronic kidney disease stage III. Monitor renal function, avoid nephrotoxic agents. 10. Valvular heart disease with mild aortic regurgitation, moderate mitral regurgitation, severe tricuspid regurgitation. 11. Severe pulmonary hypertension. 12. GI prophylaxis. Protonix. 13. DVT prophylaxis. Eliquis. 14. COVID-19 testing negative. Patient has been hospitalized during a pandemic. DISCHARGE PLAN Return to [facility]. Impression and plan of care have been directed as dictated by the signing physician. Margaret Pulliam nurse practitioner acting as scribe for signing physician. Objective - Vital Signs Vital signs: Vital Signs Temp 97.9 F 04/27/21 03:53 Pulse 63 04/27/21 03:53 Resp 16 04/27/21 06:11 BP 112/57 04/27/21 06:11 Pulse Ox 97 04/27/21 06:11 Intake & Output 04/26/21 04/27/21 04/27/21 18:59 06:59 18:59 Intake Total 796.658 Output Total 825 350 Balance -28.342 -350 Weight 60.5 kg 61 kg Intake: Intake, IV Titration 76.658 Amount Heparin Sod,Pork in 0.45% 76.658 NaCl 25,000 unit In 0.45 % NaCl 1 250ml.bag @ 12 UNITS/KG/HR 6.804 mls/hr IV .Q24H COUNT INCLUDES THE [facility] Rx#: [id number] Oral 720 Output: Urine 825 350 Straight 375 Other: Voiding Method External Catheter # Bowel Movements 1 - Labs CBC & Chem 7: 04/28/21 05:28 04/28/21 05:28 Labs: Abnormal Lab Results - Last 24 Hours (Table) 04/26/21 04/26/21 04/27/21 Range/Units 07:21 19:56 06:03 APTT 35.3 H (22.0-30.0) sec POC Glucose (mg/dL) 193 H 136 H (75-99) mg/dL
--- NOTE | 2021-04-28 11:56 | P.PN ---
Subjective Progress Note Date: 04/28/21 HISTORY OF PRESENT ILLNESS This is an 85-year-old female patient of Dr. Wills and Dr. Pagan with past medical history of chronic persistent atrial fibrillation, chronic systolic hear t failure, pulmonary hypertension, COPD with chronic hypoxic respiratory failure on home O2 at 3 L as needed, hypertension, hyperlipidemia, chronic kidney disease stage III, generalized osteoarthritis. A hat hospitalization early in March for acute hypoxic respiratory failure secondary to acute exacerbation of systolic heart failure, Covid 19 pneumonia and acute exacerbation of COPD and A. fib with RVR. Patient was discharged home with home care. She's was subsequently admitted on March 28 for same diagnoses and was discharged to [facility]. A is sent to us from [facility] due to confusion. Patient states that she is coughing all the time and has shortness of breath. She is on chronic ox ygen therapy. WBC 7.1, hemoglobin 9.1, platelet count 353. Sodium 130, potassium 4.2, chloride 97, CO2 28, BUN 30 creatinine 1.45. Glucose 140. Calcium 8.1. Total bilirubin 0.6, AST 31, ALT 17, alkaline phosphatase 76. Troponin 0.035. Pro- calcitonin 0.13. Urinalysis trace protein and negative for infection. Urine drug screen positive for opiates and benzodiazepines. Carotid virus PCR not detected. Patient presented to [facility] emergency center and found to be afebrile, heart rate 95, blood pressure 96/53, pulse ox 93% on 3 L nasal cannula but subsequently pulse ox dropped to 89% on 4 L nasal cannula and patient was placed on high flow nasal cannula 15 L. EKG was atrial fibrillation heart rate of 90. Chest x-ray reveals worsening bilateral opacities consistent with COVID19 infection progression on background mild cardiomegaly and chronic emphysematour and pulmonary fibrotic changes. Echocardiogram 03/23/2021 revealed EF of 30-35%, mild aortic regurgitation, m oderate mitral regurgitation, severe tricuspid regurgitation, severe pulmonary hypertension. Patient seen today in the ER waiting for bed on CSD unit. She has been seen by pulmonary medicine and was cleared yesterday to return to [facility] prior to the drop in pulse ox. 04/26: Patient is seen today on the cardiac stepdown unit. She is now on BiPAP with pulse ox 96%. Patient's been afebrile, heart rate 96, blood pressure 93/63. Patient is seen and followed by pulmonary medicine and recommend cont inuing BiPAP as needed only otherwise nasal cannula, continue diuretics and Decadron. Pulmonary has changed eliquis to heparin infusion. They ordered lower extremity Dopplers yesterday were negative for DVT. Repeat chest x-ray reveals findings similar to prior exam. Correlate for pneumonia, possible pleural effusions, heart failure not excluded. Underlying emphysema. 04/27: Patient is having urinary retention and required a straight cath 2 and now has 500 ML's on bladder scan, Callaway catheter to be placed. Patient has been afebrile, heart rate in the 80s and 90s, blood pressure 99/61, pulse ox 96% on 5 L nasal cannula. Levaquin nebulizers and Tessalon Perles. Oxygenation is improving. Patient is followed closely by pulmonary medicine. We'll plan to transfer the patient to [facility] with telemetry. 04/28: She is seen today on the [facility] floor. She has been afebrile, heart rate 50-80, blood pressure 103/68. Pulse ox is 91% on 6 L nasal cannula, patient was on BiPAP during the night. Repeat chest x-ray reveals COPD with continued bilateral interstitial and patchy infiltrates greater at the mid lungs. There may be slight interval improvement. Suspect trace pleural effusions. WBC is 9.6, hemoglobin 10.6, platelet count 422. D-dimer 2.81. Sodium 135. BUN 42 creatinine 1.07. Blood sugars running between 82 and 226. AST 106, ALT 124, alkaline phosphatase 107. Lactic acid 853. C-reactive protein 1.7. Discharge plan is to return to [facility] possibly ready by tomorrow. REVIEW OF SYSTEMS Constitutional: No fever, no chills, no night sweats. No weight change. Noted weakness, noted fatigue noted lethargy. No daytime sleepiness. EENT: No headache. No blurred vision or double vision, no loss of vision. No loss of Hearing, no ringing in the ears, no dizziness. No nasal drainage or congestion. No epistaxis. No sore throat. Lungs: Reports shortness of breathimproving, reports cough, no sputum production. No wheezing. Cardiovascular: No chest pain, no lower extremity edema. No palpitations. No paroxysmal nocturnal dyspnea. No orthopnea. No lightheadedness or dizziness. No syncopal episodes. Abdominal: No abdominal pain. No nausea, vomiting. No diarrhea. No constipation. No bloody or tarry stools. Reported loss of appetite. Genitourinary: No dysuria, increased frequency, urgency. No urinary retention. Musculoskeletal: No myalgias. No muscle weakness, no gait dysfunction, no frequent falls. No back pain. No neck pain. Integumentary: No wounds, no lesions. No rash or pruritus. No unusual bruising. No change in hair or nails. Neurologic: No aphasia. No facial droop. Reported change in mentation. No head i njury. No headache. No paralysis. No paresthesia. Psychiatric: No depression. Reports anxiety. No mood swings. Endocrine: No abnormal blood sugars. No weight change. No excessive sweating or thirst. No cold intolerance. PHYSICAL EXAMINATION Gen: This is a thin 85-year-old female. She is resting in bed and appears to be comfortable and in no acute distress. She is currently on 6 L nasal cannula. HEENT: Head is atraumatic, normocephalic. Pupils equal, round. Sclerae is anicteric. NECK: Supple. No JVD. No lymphadenopathy. No thyromegaly. LUNGS: Scattered crackles. No wheezing. No intercostal retractions. HEART: Irregularly irregular rate and rhythm. No murmur. ABDOMEN: Soft. Bowel sounds are present. No masses. No tenderness. EXTREMITIES: No pedal edema. No calf tenderness. Dorsalis pedis +2 bilaterally. NEUROLOGICAL: Patient is awake, alert and oriented x3. Cranial nerves 2 through 12 are grossly intact. ASSESSMENT AND PLAN 1. Acute on chronic hypoxic respiratory failure secondary to a residual Covid 19 pneumonia on top of chronic systolic heart failure, COPD, pulmonary fibrosis. Continue oxygen therapy, Currently on BiPAP at night and 6 L nasal cannula 2. Chronic systolic heart failure. Continue Lasix 40 mg oral twice daily. 3. Possible Covid 19 pneumonia. Pulmonary consult appreciated. Patient's been started on Ventolin inhaler 4 times daily, Symbicort 2 puffs twice daily, dexamethasone 6 mgoral daily, Spiriva, Tessalon Perles. 4. COPD without exacerbation. Continue Symbicort, Spiriva, albuterol, dexamethasone. 5. Chronic persistent atrial fibrillation. Continue amiodarone 200 mg daily, Lopressor 75 mg 3 times daily, eliquis 2.5 mg twice daily 6. Anemia of chronic disease. Continue to monitor. 7. Hypertension. Continue Lopressor. 8. Hyperlipidemia. Continue Lipitor 20 mg at bedtime. 9. Chronic kidney disease stage III. Monitor renal function, avoid nephrotoxic agents. 10. Valvular heart disease with mild aortic regurgitation, moderate mitral regurgitation, severe tricuspid regurgitation. 11. Severe pulmonary hypertension. 12. GI prophylaxis. Protonix. 13. DVT prophylaxis. Eliquis. 14. COVID-19 testing negative. Patient has been hospitalized during a pandemic. DISCHARGE PLAN Return to [facility]. Impression and plan of care have been directed as dictated by the signing physician. Margaret Pulliam nurse practitioner acting as scribe for signing physician. Objective - Vital Signs Vital signs: Vital Signs Temp 97.4 F L 04/28/21 07:14 Pulse 52 L 04/28/21 07:14 Resp 16 04/28/21 07:54 BP 103/68 04/28/21 07:14 Pulse Ox 91 L 04/28/21 07:14 Intake & Output 04/27/21 04/28/21 04/28/21 18:59 06:59 18:59 Intake Total 354 Output Total 900 975 Balance -546 -975 Weight 60.5 kg Intake: Oral 354 Output: Urine 900 975 Other: Voiding Method Indwelling Catheter - Labs CBC & Chem 7: 04/28/21 05:28 04/28/21 05:28 Labs: Abnormal Lab Results - Last 24 Hours (Table) 04/27/21 04/27/21 04/28/21 Range/Units 16:56 19:57 05:28 RBC 3.38 L (3.80-5.40) m/uL Hgb 10.6 L (11.4-16.0) gm/dL MCV 102.5 H (80.0-100.0) fL MCHC 30.7 L (31.0-37.0) g/dL RDW 16.2 H (11.5-15.5) % Neutrophils # 8.5 H (1.3-7.7) k/uL Lymphocytes # 0.5 L (1.0-4.8) k/uL D-Dimer (<0.60) mg/L FEU Sodium (137-145) mmol/L BUN (7-17) mg/dL Creatinine (0.52-1.04) mg/dL POC Glucose (mg/dL) 227 H 206 H (75-99) mg/dL AST (14-36) U/L ALT (4-34) U/L Lactate Dehydrogenase (313-618) U/L C-Reactive Protein (<1.0) mg/dL Total Protein (6.3-8.2) g/dL Albumin (3.5-5.0) g/dL 04/28/21 04/28/21 04/28/21 Range/Units 05:28 05:28 11:13 RBC (3.80-5.40) m/uL Hgb (11.4-16.0) gm/dL MCV (80.0-100.0) fL MCHC (31.0-37.0) g/dL RDW (11.5-15.5) % Neutrophils # (1.3-7.7) k/uL Lymphocytes # (1.0-4.8) k/uL D-Dimer 2.81 H (<0.60) mg/L FEU Sodium 135 L (137-145) mmol/L BUN 42 H (7-17) mg/dL Creatinine 1.07 H (0.52-1.04) mg/dL POC Glucose (mg/dL) 216 H (75-99) mg/dL AST 106 H (14-36) U/L ALT 124 H (4-34) U/L Lactate Dehydrogenase 853 H (313-618) U/L C-Reactive Protein 1.7 H (<1.0) mg/dL Total Protein 5.8 L (6.3-8.2) g/dL Albumin 3.0 L (3.5-5.0) g/dL
[2021-04-28 16:19] LABS: Glucose,Whole Blood 175 mg/dL (75-99)
[2021-04-28] MEDS: LEVOFLOXACIN 250 MG TAB PO SCH (17:13)
[2021-04-28 21:32] LABS: Glucose,Whole Blood 264 mg/dL (75-99)
[2021-04-28] MEDS: LORazepam 1 MG TAB PO SCH (22:06)
[2021-04-28] MEDS: MELATONIN 3 MG TABLET PO SCH (22:06)
[2021-04-29] MEDS: METOPROLOL TARTRATE 25 MG TAB PO SCH ×3 (05:58→21:11)
[2021-04-29] MEDS: BENZONATATE 100 MG CAP PO SCH ×3 (05:59→21:11)
[2021-04-29] MEDS: FUROSEMIDE 40 MG TAB PO SCH ×2 (05:59→15:48)
[2021-04-29 06:56] LABS: Glucose,Whole Blood 91 mg/dL (75-99)
[2021-04-29] MEDS: INSULIN ASPART (NovoLOG) 100 UNIT/ML VIAL SQ SCH ×4 (08:17→21:12)
[2021-04-29] MEDS: APIXABAN 2.5 MG TABLET PO SCH ×2 (08:20→21:11)
[2021-04-29] MEDS: LEVOFLOXACIN 250 MG TAB PO SCH (08:20)
[2021-04-29] MEDS: SENNOSIDES-DOCUSATE SODIUM 1 EACH TAB PO SCH ×2 (08:20→08:21)
[2021-04-29] MEDS: AMIODARONE 200 MG TAB PO SCH (08:20)
[2021-04-29] MEDS: FERROUS SULFATE 325 MG TAB PO SCH (08:21)
[2021-04-29] MEDS: DEXAMETHASONE SOD PHOSPHATE 10 MG/ML 1 ML VIAL IVP SCH (08:21)
[2021-04-29] MEDS: CHOLECALCIFEROL 25 MCG (1000 IU) TABLET PO SCH (08:21)
[2021-04-29] MEDS: ACETAMINOPHEN TAB 325 MG TAB PO PRN ×2 (08:21→15:52)
[2021-04-29] MEDS: TIOTROPIUM 2.5 MCG INHALER INHALATION SCH (09:16)
[2021-04-29] MEDS: ALBUTEROL HFA INHALER INHALATION SCH ×4 (09:16→20:10)
[2021-04-29] MEDS: SYMBICORT 80-4.5 MCG INHALER INHALATION SCH ×2 (09:16→20:11)
--- NOTE | 2021-04-29 10:37 | P.PN ---
Subjective Progress Note Date: 04/29/21 HISTORY OF PRESENT ILLNESS This is an 85-year-old female patient of Dr. Wills and Dr. Pagan with past medical history of chronic persistent atrial fibrillation, chronic systolic hear t failure, pulmonary hypertension, COPD with chronic hypoxic respiratory failure on home O2 at 3 L as needed, hypertension, hyperlipidemia, chronic kidney disease stage III, generalized osteoarthritis. A hat hospitalization early in March for acute hypoxic respiratory failure secondary to acute exacerbation of systolic heart failure, Covid 19 pneumonia and acute exacerbation of COPD and A. fib with RVR. Patient was discharged home with home care. She's was subsequently admitted on March 28 for same diagnoses and was discharged to [facility]. A is sent to us from [facility] due to confusion. Patient states that she is coughing all the time and has shortness of breath. She is on chronic ox ygen therapy. WBC 7.1, hemoglobin 9.1, platelet count 353. Sodium 130, potassium 4.2, chloride 97, CO2 28, BUN 30 creatinine 1.45. Glucose 140. Calcium 8.1. Total bilirubin 0.6, AST 31, ALT 17, alkaline phosphatase 76. Troponin 0.035. Pro- calcitonin 0.13. Urinalysis trace protein and negative for infection. Urine drug screen positive for opiates and benzodiazepines. Carotid virus PCR not detected. Patient presented to [facility] emergency center and found to be afebrile, heart rate 95, blood pressure 96/53, pulse ox 93% on 3 L nasal cannula but subsequently pulse ox dropped to 89% on 4 L nasal cannula and patient was placed on high flow nasal cannula 15 L. EKG was atrial fibrillation heart rate of 90. Chest x-ray reveals worsening bilateral opacities consistent with COVID19 infection progression on background mild cardiomegaly and chronic emphysematour and pulmonary fibrotic changes. Echocardiogram 03/23/2021 revealed EF of 30-35%, mild aortic regurgitation, m oderate mitral regurgitation, severe tricuspid regurgitation, severe pulmonary hypertension. Patient seen today in the ER waiting for bed on CSD unit. She has been seen by pulmonary medicine and was cleared yesterday to return to [facility] prior to the drop in pulse ox. 04/26: Patient is seen today on the cardiac stepdown unit. She is now on BiPAP with pulse ox 96%. Patient's been afebrile, heart rate 96, blood pressure 93/63. Patient is seen and followed by pulmonary medicine and recommend cont inuing BiPAP as needed only otherwise nasal cannula, continue diuretics and Decadron. Pulmonary has changed eliquis to heparin infusion. They ordered lower extremity Dopplers yesterday were negative for DVT. Repeat chest x-ray reveals findings similar to prior exam. Correlate for pneumonia, possible pleural effusions, heart failure not excluded. Underlying emphysema. 04/27: Patient is having urinary retention and required a straight cath 2 and now has 500 ML's on bladder scan, Callaway catheter to be placed. Patient has been afebrile, heart rate in the 80s and 90s, blood pressure 99/61, pulse ox 96% on 5 L nasal cannula. Levaquin nebulizers and Tessalon Perles. Oxygenation is improving. Patient is followed closely by pulmonary medicine. We'll plan to transfer the patient to [facility] with telemetry. 04/28: She is seen today on the [facility] floor. She has been afebrile, heart rate 50-80, blood pressure 103/68. Pulse ox is 91% on 6 L nasal cannula, patient was on BiPAP during the night. Repeat chest x-ray reveals COPD with continued bilateral interstitial and patchy infiltrates greater at the mid lungs. There may be slight interval improvement. Suspect trace pleural effusions. WBC is 9.6, hemoglobin 10.6, platelet count 422. D-dimer 2.81. Sodium 135. BUN 42 creatinine 1.07. Blood sugars running between 82 and 226. AST 106, ALT 124, alkaline phosphatase 107. Lactic acid 853. C-reactive protein 1.7. Discharge plan is to return to [facility] possibly ready by tomorrow. 04/29: Patient is on O2 at 6 L nasal cannula with pulse ox of 93-95%. Blood pressure remains on the lower side 86/47. She has been afebrile, heart rate 88. Capillary blood glucose running between 91 and 264. Repeat blood work ordered for tomorrow. Patient denies new complaints. Breathing status seems to be improving slowly. Anticipate discharge back to [facility] on Sunday. REVIEW OF SYSTEMS Constitutional: No fever, no chills, no night sweats. No weight change. Noted weakness, noted fatigue noted lethargy. No daytime sleepiness. EENT: No headache. No blurred vision or double vision, no loss of vision. No loss of Hearing, no ringing in the ears, no dizziness. No nasal drainage or congestion. No epistaxis. No sore throat. Lungs: Reports shortness of breathimproving, reports cough, no sputum production. No wheezing. Cardiovascular: No chest pain, no lower extremity edema. No palpitations. No paroxysmal nocturnal dyspnea. No orthopnea. No lightheadedness or dizziness. No syncopal episodes. Abdominal: No abdominal pain. No nausea, vomiting. No diarrhea. No constipation. No bloody or tarry stools. Reported loss of appetite. Genitourinary: No dysuria, increased frequency, urgency. No urinary retention. Musculoskeletal: No myalgias. Reports muscle weakness, reports gait dysfunction, no frequent falls. No back pain. No neck pain. Integumentary: No wounds, no lesions. No rash or pruritus. No unusual bruising. No change in hair or nails. Neurologic: No aphasia. No facial droop. Reported change in mentation. No head injury. No headache. No paralysis. No paresthesia. Psychiatric: No depression. Reports anxiety. No mood swings. Endocrine: Noted mildly abnormal blood sugars. No weight change. No excessive sweating or thirst. No cold intolerance. PHYSICAL EXAMINATION Gen: This is a thin 85-year-old female. She is resting in bed and appears to be comfortable and in no acute distress. She is currently on 6 L nasal cannula. HEENT: Head is atraumatic, normocephalic. Pupils equal, round. Sclerae is anicteric. NECK: Supple. No JVD. No lymphadenopathy. No thyromegaly. LUNGS: Scattered crackles. No wheezing. No intercostal retractions. HEART: Irregularly irregular rate and rhythm. No murmur. ABDOMEN: Soft. Bowel sounds are present. No masses. No tenderness. EXTREMITIES: No pedal edema. No calf tenderness. Dorsalis pedis +2 bilaterally. NEUROLOGICAL: Patient is awake, alert and oriented x3. Cranial nerves 2 through 12 are grossly intact. ASSESSMENT AND PLAN 1. Acute on chronic hypoxic respiratory failure secondary to a residual Covid 19 pneumonia on top of chronic systolic heart failure, COPD, pulmonary fibrosis. Continue oxygen therapy, Currently on BiPAP at night and 6 L nasal cannula 2. Chronic systolic heart failure. Continue Lasix 40 mg oral twice daily. 3. Possible Covid 19 pneumonia. Pulmonary consult appreciated. Patient's been started on Ventolin inhaler 4 times daily, Symbicort 2 puffs twice daily, dexamethasone 6 mgoral daily, Spiriva, Tessalon Perles. 4. COPD without exacerbation. Continue Symbicort, Spiriva, albuterol, dexamethasone. 5. Chronic persistent atrial fibrillation. Continue amiodarone 200 mg daily, Lopressor 75 mg 3 times daily, eliquis 2.5 mg twice daily 6. Anemia of chronic disease. Continue to monitor. 7. Hypertension. Continue Lopressor. 8. Hyperlipidemia. Continue Lipitor 20 mg at bedtime. 9. Chronic kidney disease stage III. Monitor renal function, avoid nephrotoxic agents. 10. Valvular heart disease with mild aortic regurgitation, moderate mitral regurgitation, severe tricuspid regurgitation. 11. Severe pulmonary hypertension. 12. GI prophylaxis. Protonix. 13. DVT prophylaxis. Eliquis. 14. COVID-19 testing negative. Patient has been hospitalized during a pandemic. DISCHARGE PLAN Return to [facility] on Sunday. Impression and plan of care have been directed as dictated by the signing physician. Margaret Pulliam nurse practitioner acting as scribe for signing physician. Objective - Vital Signs Vital signs: Vital Signs Temp 97.1 F L 04/29/21 01:33 Pulse 60 04/29/21 01:33 Resp 20 04/29/21 01:33 BP 99/55 04/29/21 01:33 Pulse Ox 95 04/29/21 01:33 Intake & Output 04/28/21 04/29/21 04/29/21 18:59 06:59 18:59 Weight 59 kg Other: Voiding Method Indwelling Catheter - Labs CBC & Chem 7: 04/28/21 05:28 04/28/21 05:28 Labs: Abnormal Lab Results - Last 24 Hours (Table) 04/28/21 04/28/21 04/28/21 Range/Units 11:13 16:18 21:17 POC Glucose (mg/dL) 216 H 175 H 264 H (75-99) mg/dL
[2021-04-29 11:34] LABS: Glucose,Whole Blood 185 mg/dL (75-99)
--- NOTE | 2021-04-29 12:46 | P.PN ---
Subjective Progress Note Date: 04/29/21 Principal diagnosis: COVID-19 pneumonia The patient is seen today 04/29/2021 in follow-up on the regular medical floor. She is currently resting comfortably in bed. Still on 6 L high flow nasal cannula with O2 saturations in the low to mid 90s. She's been afebrile. Hemodynamically stable. Most recent chest x-ray reveals evidence of COPD with continued bilateral interstitial and patchy infiltrates. Greatest mid lungs. There is slight interval improvement. Trace pleural effusions. Blood glucose 185. She is continued on Symbicort, Spiriva, albuterol. Anticoagulated with Eliquis. Remains on Decadron. Antibiotics in the form of Levaquin. Oral diuretics. Objective - Vital Signs Vital signs: Vital Signs Temp 97.4 F L 04/29/21 07:23 Pulse 88 04/29/21 07:23 Resp 15 04/29/21 08:00 BP 86/47 04/29/21 07:23 Pulse Ox 93 L 04/29/21 07:23 Intake & Output 04/28/21 04/29/21 04/29/21 18:59 06:59 18:59 Weight 59 kg Other: Voiding Method Indwelling Catheter Incontinent Indwelling Catheter - Exam GENERAL EXAM: Alert, pleasant, 85-year-old female patient, currently on 6 liters of oxygen, comfortable in no apparent distress. Patient is very hard of hearing HEAD: Normocephalic/atraumatic. EYES: Normal reaction of pupils, equal size. Conjunctiva pink, sclera white. NOSE: Clear with pink turbinates. THROAT: No erythema or exudates. NECK: No masses, no JVD, no thyroid enlargement, no adenopathy. CHEST: No chest wall deformity. Symmetrical expansion. LUNGS: Equal air entry with diffuse coarse crackles bilaterally mostly in the bases CVS: Regular rate and rhythm, normal S1 and S2, no gallops, no murmurs, no rubs ABDOMEN: Soft, nontender. No hepatosplenomegaly, normal bowel sounds, no guarding or rigidity. EXTREMITIES: No clubbing, no edema, no cyanosis, 2+ pulses and upper and lower extremities. MUSCULOSKELETAL: Muscle strength and tone normal. SPINE: No scoliosis or deformity SKIN: No rashes CENTRAL NERVOUS SYSTEM: No focal deficits, tone is normal in all 4 extremities. PSYCHIATRIC: Alert and oriented -3. Appropriate affect. Intact judgment and insight. - Labs CBC & Chem 7: 04/28/21 05:28 04/28/21 05:28 Labs: Abnormal Lab Results - Last 24 Hours (Table) 04/28/21 04/28/21 04/29/21 Range/Units 16:18 21:17 11:29 POC Glucose (mg/dL) 175 H 264 H 185 H (75-99) mg/dL Assessment and Plan Assessment: 1 Acute on chronic hypoxic respiratory failure related to acute exacerbation of systolic CHF, and recent history of COVID-19 related pneumonia. Currently improved, and patient is off the BiPAP support and on nasal cannula at 6 L, tolerating it well. Chest x-ray shows residual pulmonary infiltrates related to previous Covid 19 related pneumonia. The patient was diagnosed having Covid 19 on 03/18/2021 and the patient was hospitalized between 03/22/2020 and 04/01/2020 and following that the patient was discharged to [facility]. She is still having hypoxemia and oxygen requirements remain unchanged at 6 L. Chest x-ray findings are still stable. Repeat Covid 19 testing came back negative. 2 CHF with systolic heart failure 3 Chronic atrial fibrillation 4 COPD 5 Chronic stage III kidney disease 6 Hypertension 7 Hyperlipidemia 8 Bilateral heart disease with mild aortic stenosis, moderate MR and severe TR with severe pulmonary hypertension 9 Debility with worsening weakness currently residing at [facility] 10 Degenerative arthritis 11 Hard of hearing 12 Diverticular disease 13 Lumbar disc disease Plan: The patient was seen and evaluated On 6 L high flow nasal cannula Continue to titrate down the FiO2 as tolerated Anticoagulated with Eliquis Continue Symbicort, Spiriva, albuterol Plan is for return to [facility] I, the cosigning physician, performed a history & physical examination of the patient. Lungs sounds with coarse crackles bilaterally. Maintaining O2 saturations in the 90s on 6 L high flow nasal cannula. I discussed the assessment and plan of care with my nurse practitioner, Mary Solorzano. I attest to the above note as dictated by her.
[2021-04-29 16:28] LABS: Glucose,Whole Blood 165 mg/dL (75-99)
[2021-04-29 20:34] LABS: Glucose,Whole Blood 246 mg/dL (75-99)
[2021-04-29] MEDS: LORazepam 1 MG TAB PO SCH (21:11)
[2021-04-29] MEDS: MELATONIN 3 MG TABLET PO SCH (21:11)
[2021-04-30 02:01] LABS: Glucose,Whole Blood 86 mg/dL (75-99)
[2021-04-30] MEDS: ACETAMINOPHEN TAB 325 MG TAB PO PRN ×3 (05:30→21:31)
[2021-04-30] MEDS: METOPROLOL TARTRATE 25 MG TAB PO SCH ×3 (05:30→21:29)
[2021-04-30] MEDS: FUROSEMIDE 40 MG TAB PO SCH ×2 (05:30→15:15)
[2021-04-30] MEDS: BENZONATATE 100 MG CAP PO SCH ×3 (05:31→21:30)
[2021-04-30 07:05] LABS: Glucose,Whole Blood 78 mg/dL (75-99)
[2021-04-30] MEDS: INSULIN ASPART (NovoLOG) 100 UNIT/ML VIAL SQ SCH ×4 (07:31→21:30)
[2021-04-30] MEDS: SYMBICORT 80-4.5 MCG INHALER INHALATION SCH ×2 (08:09→19:14)
[2021-04-30] MEDS: ALBUTEROL HFA INHALER INHALATION SCH ×4 (08:09→19:14)
[2021-04-30] MEDS: TIOTROPIUM 2.5 MCG INHALER INHALATION SCH (08:09)
[2021-04-30] MEDS: APIXABAN 2.5 MG TABLET PO SCH ×2 (08:35→21:30)
[2021-04-30] MEDS: DEXAMETHASONE SOD PHOSPHATE 10 MG/ML 1 ML VIAL IVP SCH (08:36)
[2021-04-30] MEDS: AMIODARONE 200 MG TAB PO SCH (08:36)
[2021-04-30] MEDS: CHOLECALCIFEROL 25 MCG (1000 IU) TABLET PO SCH (08:36)
[2021-04-30] MEDS: FERROUS SULFATE 325 MG TAB PO SCH (08:36)
--- NOTE | 2021-04-30 10:01 | P.PN ---
Subjective Progress Note Date: 04/30/21 HISTORY OF PRESENT ILLNESS This is an 85-year-old female patient of Dr. Wills and Dr. Pagan with past medical history of chronic persistent atrial fibrillation, chronic systolic heart failure, pulmonary hypertension, COPD with chronic hypoxic respiratory failure on home O2 at 3 L as needed, hypertension, hyperlipidemia, chronic kidney disease stage III, generalized osteoarthritis. A hat hospitalization early in March for acute hypoxic respiratory failure secondary to acute ex acerbation of systolic heart failure, Covid 19 pneumonia and acute exacerbation of COPD and A. fib with RVR. Patient was discharged home with home care. She's was subsequently admitted on March 28 for same diagnoses and was discharged to [facility]. A is sent to us from [facility] due to confusion. Patient states that she is coughing all the time and has shortness of breath. She is on chronic oxy gen therapy. WBC 7.1, hemoglobin 9.1, platelet count 353. Sodium 130, potassium 4.2, chloride 97, CO2 28, BUN 30 creatinine 1.45. Glucose 140. Calcium 8.1. Total bilirubin 0.6, AST 31, ALT 17, alkaline phosphatase 76. Troponin 0.035. Pro- calcitonin 0.13. Urinalysis trace protein and negative for infection. Urine drug screen positive for opiates and benzodiazepines. Carotid virus PCR not d etected. Patient presented to [facility] emergency center and found to be afebrile, heart rate 95, blood pressure 96/53, pulse ox 93% on 3 L nasal cannula but subsequently pulse ox dropped to 89% on 4 L nasal cannula and patient was placed on high flow nasal cannula 15 L. EKG was atrial fibrillation heart rate of 90. Chest x-ray reveals worsening bilateral opacities consistent with COVID19 infection progression on background mild cardiomegaly and chronic emphysematour and pulmonary fibrotic changes. Echocardiogram 03/23/2021 revealed EF of 30-35%, mild aortic regurgitation, mo derate mitral regurgitation, severe tricuspid regurgitation, severe pulmonary hypertension. Patient seen today in the ER waiting for bed on CSD unit. She has been seen by pulmonary medicine and was cleared yesterday to return to [facility] prior to the drop in pulse ox. 04/26: Patient is seen today on the cardiac stepdown unit. She is now on BiPAP with pulse ox 96%. Patient's been afebrile, heart rate 96, blood pressure 93/63. Patient is seen and followed by pulmonary medicine and recommend ean nuing BiPAP as needed only otherwise nasal cannula, continue diuretics and Decadron. Pulmonary has changed eliquis to heparin infusion. They ordered lower extremity Dopplers yesterday were negative for DVT. Repeat chest x-ray reveals findings similar to prior exam. Correlate for pneumonia, possible pleural effusions, heart failure not excluded. Underlying emphysema. 04/27: Patient is having urinary retention and required a straight cath 2 and now has 500 ML's on bladder scan, Callaway catheter to be placed. Patient has been afebrile, heart rate in the 80s and 90s, blood pressure 99/61, pulse ox 96% on 5 L nasal cannula. Levaquin nebulizers and Tessalon Perles. Oxygenation is improving. Patient is followed closely by pulmonary medicine. We'll plan to transfer the patient to [facility] with telemetry. 04/28: She is seen today on the [facility] floor. She has been afebrile, heart rate 50-80, blood pressure 103/68. Pulse ox is 91% on 6 L nasal cannula, patient was on BiPAP during the night. Repeat chest x-ray reveals COPD with continued bilateral interstitial and patchy infiltrates greater at the mid lungs. There may be slight interval improvement. Suspect trace pleural effusions. WBC is 9.6, hemoglobin 10.6, platelet count 422. D-dimer 2.81. Sodium 135. BUN 42 creatinine 1.07. Blood sugars running between 82 and 226. AST 106, ALT 124, alkaline phosphatase 107. Lactic acid 853. C-reactive protein 1.7. Discharge plan is to return to [facility] possibly ready by tomorrow. 04/29: Patient is on O2 at 6 L nasal cannula with pulse ox of 93-95%. Blood pressure remains on the lower side 86/47. She has been afebrile, heart rate 88. Capillary blood glucose running between 91 and 264. Repeat blood work ordered for tomorrow. Patient denies new complaints. Breathing status seems to be improving slowly. Anticipate discharge back to [facility] on Sunday. 04/30: Patient is found sitting up in bed anxious complaining of increase shortness of breath and chest discomfort. Patient states that her wrist feels sore. Patient has tenderness to the intercostal spacing. Patient states that she feels like her heart is racing and she is unable to catch her breath. Patient finds that this is worse than yesterday. EKG shows A. fib with RVR. A CTA is ordered. Troponin 3 ordered. Patient is currently on a eliquis 2.5 twice a day. Patient is currently on 5 L nasal cannula 93% REVIEW OF SYSTEMS Constitutional: No fever, no chills, no night sweats. No weight change. Noted weakness, noted fatigue noted lethargy. No daytime sleepiness. EENT: No headache. No blurred vision or double vision, no loss of vision. No loss of Hearing, no ringing in the ears, no dizziness. No nasal drainage or congestion. No epistaxis. No sore throat. Lungs: Reports shortness of breathworsening reports cough, no sputum production. No wheezing. Cardiovascular: Reports chest pain, no lower extremity edema. Reports palpitations. No paroxysmal nocturnal dyspnea. No orthopnea. No lightheadedness or dizziness. No syncopal episodes. Abdominal: No abdominal pain. No nausea, vomiting. No diarrhea. No constipation. No bloody or tarry stools. Reported loss of appetite. Genitourinary: No dysuria, increased frequency, urgency. No urinary retention. Musculoskeletal: No myalgias. Reports muscle weakness, reports gait dysfunction, no frequent falls. No back pain. No neck pain. Integumentary: No wounds, no lesions. No rash or pruritus. No unusual bruising. No change in hair or nails. Neurologic: No aphasia. No facial droop. Reported change in mentation. No head injury. No headache. No paralysis. No paresthesia. Psychiatric: No depression. Reports anxiety. No mood swings. Endocrine: Noted mildly abnormal blood sugars. No weight change. No excessive sweating or thirst. No cold intolerance. PHYSICAL EXAMINATION Gen: This is a thin 85-year-old female. She is resting in bed, anxious in moderate distress. She is currently on 6 L nasal cannula. HEENT: Head is atraumatic, normocephalic. Pupils equal, round. Sclerae is anicteric. NECK: Supple. No JVD. No lymphadenopathy. No thyromegaly. LUNGS: Scattered crackles. No wheezing. No intercostal retractions. Tenderness to intercostal spacing. HEART: Irregularly irregular rate and rhythm. No murmur. ABDOMEN: Soft. Bowel sounds are present. No masses. No tenderness. EXTREMITIES: No pedal edema. No calf tenderness. Dorsalis pedis +2 bi laterally. NEUROLOGICAL: Patient is awake, alert and oriented x3. Cranial nerves 2 through 12 are grossly intact. ASSESSMENT AND PLAN 1. Acute on chronic hypoxic respiratory failure secondary to a residual Covid 19 pneumonia on top of chronic systolic heart failure, COPD, pulmonary fibrosis. Continue oxygen therapy, Currently on BiPAP at night and 5 L nasal cannula. C TA ordered for increased shortness of breath, troponin, consult cardiology. 2. Chronic systolic heart failure. Continue Lasix 40 mg oral twice daily. 3. Possible Covid 19 pneumonia. Pulmonary consult appreciated. Patient's been started on Ventolin inhaler 4 times daily, Symbicort 2 puffs twice daily, dexamethasone 6 mgoral daily, Spiriva, Tessalon Perles. 4. COPD without exacerbation. Continue Symbicort, Spiriva, albuterol, dexamethasone. 5. Chronic persistent atrial fibrillation. Continue amiodarone 200 mg daily, Lopressor 75 mg 3 times daily, eliquis 2.5 mg twice daily 6. Anemia of chronic disease. Continue to monitor. 7. Hypertension. Continue Lopressor. 8. Hyperlipidemia. Continue Lipitor 20 mg at bedtime. 9. Chronic kidney disease stage III. Monitor renal function, avoid nephrotoxic agents. 10. Valvular heart disease with mild aortic regurgitation, moderate mitral regurgitation, severe tricuspid regurgitation. 11. Severe pulmonary hypertension. 12. A. fib with RVR. Consult cardiology. Patient is currently on eliquis. 13. GI prophylaxis. Protonix. 14. DVT prophylaxis. Eliquis. 15. COVID-19 testing negative. Patient has been hospitalized during a pandemic. DISCHARGE PLAN Return to [facility] on Sunday. Impression and plan of care have been directed as dictated by the signing physician. Yaneth Ross nurse practitioner acting as scribe for signing physician. Objective - Vital Signs Vital signs: Vital Signs Temp 97.4 F L 04/30/21 07:36 Pulse 78 04/30/21 07:36 Resp 18 04/30/21 07:36 BP 103/68 04/30/21 07:36 Pulse Ox 93 L 04/30/21 07:36 Intake & Output 04/29/21 04/30/21 04/30/21 18:59 06:59 18:59 Intake Total 360 420 Output Total 950 Balance -590 420 Weight 61 kg Intake: Oral 360 420 Output: Urine 950 Other: Voiding Method Incontinent Indwelling Catheter Indwelling Catheter Indwelling Catheter - Labs CBC & Chem 7: 04/28/21 05:28 04/28/21 05:28 Labs: Abnormal Lab Results - Last 24 Hours (Table) 04/29/21 04/29/21 04/29/21 Range/Units 11:29 16:27 20:22 POC Glucose (mg/dL) 185 H 165 H 246 H (75-99) mg/dL
[2021-04-30 11:03] LABS: Glucose,Whole Blood 120 mg/dL (75-99)
[2021-04-30 11:17] VITALS: BMI 21.0
[2021-04-30 11:33] LABS: HCT 36.8 % (37.2-46.3); HGB 11.1 g/dL (12.0-15.0); MCH 30.2 pg (27.0-32.0); MCHC 30.2 g/dL (32.0-37.0); MCV 100.3 fL (80.0-97.0); Mean Platelet Volume 9.2 fL (9.5-12.2); NRBC Per 100 WBC 0 /100 WBCS (0.0-0.0); Platelet Count 478 X 10*3/uL (140-440); RBC 3.67 X 10*6/uL (4.10-5.20); RDW 16.6 % (11.5-14.5); WBC 15.67 X 10*3/uL (4.50-10.00)
[2021-04-30 11:56] LABS: African American GFR (CKD) 62.8 (60.0-200.0); Albumin 3.2 g/dL (3.8-4.9); Albumin/Globulin Ratio 1.35 (1.60-3.17); Anion Gap 12.6 mmol/L (10.00-18.00); BUN/Creat Ratio 33.54 Ratio (12.00-20.00); Blood Urea Nitrogen 31.7 mg/dL (9.0-27.0); C Reactive Protein 0.4 mg/dL (0.00-0.80); Calcium 8.7 mg/dL (8.7-10.3); Carbon Dioxide 29.6 mmol/L (20.0-27.5); Globulin 2.4 g/dL (1.6-3.3); Non-African American GFR(CKD) 54.2 (60.0-200.0); Potassium 4.4 mmol/L (3.5-5.5); Total Bilirubin 0.4 mg/dL (0.30-1.20); Total Protein 5.6 g/dL (6.2-8.2)
[2021-04-30] MEDS: LEVOFLOXACIN 250 MG TAB PO SCH (15:15)
--- NOTE | 2021-04-30 15:30 | CT ---
EXAMINATION TYPE: CT chest angio for PE DATE OF EXAM: 04/30/2021 COMPARISON: 03/25/2016 HISTORY: Shortness of breath CT DLP: 215.7 mGycm Automated exposure control for dose reduction was used. CONTRAST: Performed with IV Contrast, patient injected with 80 mL of Isovue 370. There are 3-D postprocess images. There are [id number] bilateral pleural effusions. There is bilateral patchy airspace infiltrate s in the posterior lung murguia bilaterally. There is pulmonary emphysema. There is reticular intersti tial density in both lungs. There is small left apical pneumothorax. There is no mediastinal adenopathy. There are no hilar masses. There is normal contrast opacification of the pulmonary arteries. There are no filling defects. The thoracic spine is intact. There is no compression fracture. There is minor spur formation. Sternu m is intact. IMPRESSION: Small left apical pneumothorax less than 3%. No evidence of pulmonary embolism. Pleural effusions and extensive pulmonary infiltrates probably related to combined pneumonia and jannette estive heart failure. Pulmonary infiltrates significantly increased compared to old exam.
[2021-04-30 16:26] LABS: Glucose,Whole Blood 173 mg/dL (75-99)
[2021-04-30 18:58] LABS: Glucose,Whole Blood 231 mg/dL (75-99)
--- NOTE | 2021-04-30 19:48 | P.CRDCN ---
History of Present Illness History of present illness: HISTORY OF PRESENTING ILLNESS his is a 85-year-old female with a past medical history significant for chronic persistent atrial fibrillation, congestive heart failure, NICMP, hypertension, a nd hyperlipidemia and recent COVID 19 infection. Patient follows in the office with Dr. Pagan. 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 She presented to secondary to apparent altered mental status and additionally chronic respiratory failure. She did have COVID-19 in March 2021 and unfortunately has had complications from that time with respiratory failure and oxygen dependence. She has been at subacute rehab at [facility]. She was admitted to the hospital and chest x-ray showed pulmonary infiltrates and was placed on antibiotics as well as home diuretics. She has been hospitalized for approximately 6 days and then started complaining of chest discomfort this morning. Repeat EKG was performed which did show some ST dep ressions in the lateral leads. Troponin was drawn which was abnormal at 0.038 however this appeared similar to prior from 04/24/2021 of 0.035 and even improved from prior 0.08 from hospitalization in March. She has been on amiodarone as well as Eliquis 2.5 mg twice a day dosing and oral Lasix 40 mg twice a day, with metoprolol 75 mg 3 times a day. CTA was performed today which showed small left apical pneumothorax less than 3%, no pulmonary embolism, pleural effusions and extensive pulmonary infiltrates likely related to pneumonia and congestive heart failure with pulmonary infiltrates significantly increased compared to old exam. 03/24/21 Echocardiogram completed revealing ejection fraction 30-35%, mild aortic regurgitation, moderate mitral regurgitation, severe tricuspid regurgitation, and severe pulmonary hypertension REVIEW OF SYSTEMS At the time of my exam: CONSTITUTIONAL: Denies fever or chills. CARDIOVASCULAR: +Chest pain, +shortness of breath, no orthopnea, PND or palpit ations. RESPIRATORY: Denies cough. GASTROINTESTINAL: Denies abdominal pain, diarrhea, constipation, nausea or vomiting. MUSCULOSKELETAL: Denies myalgias. NEUROLOGIC: Denies numbness, tingling or weakness. ENDOCRINE: Denies fatigue, weight change, polydipsia or polyurina. GENITOURINARY: Denies burning, hematuria or urgency with micturation. HEMATOLOGIC: Denies history of anemia or bleeding. PHYSICAL EXAMINATION Vital signs reviewed. CONSTITUTIONAL: No apparent distress, chronically ill appearing HEENT: Head is normocephalic. Pupils are equal, round. Sclerae anicteric. Mucous membranes of the mouth are moist. No JVD. No carotid bruit. CHEST EXAMINATION: Bilateral rhonchi HEART EXAMINATION: Irregular rate and rhythm. S1, S2 heard. +2/6 JEWEL, no gallops or rub. ABDOMEN: Soft, nontender. Positive bowel sounds. EXTREMITIES: 2+ peripheral pulses, no lower extremity edema and no calf tendern ess. NEUROLOGIC EXAMINATION: Patient is awake, alert and oriented x3. ASSESSMENT 1. Precordial chest pain may be related to pneumonia versus rule out cardiac source 2. Elevated troponin, previously mildly elevated. Continue to trend 3. Acute on chronic respiratory failure mainly related to COVID-19 infection/residual lung injury plus possible and pneumonia. Possible component of heart failure however appears euvolemic 4. Chronic systolic heart failure 5. Nonischemic cardiomyopathy EF 30-35% 6. Small apical pneumothorax 7. Mild to moderate coronary artery disease by heart catheterization 2016 8. Chronic atrial fibrillation with controlled ventricular rates 9. Abnormal EKG with ST depressions 10. Altered mental status, currently appears improved 11. Debility PLAN Patient difficult to get a clear history from however appears she has been having chest pain off and on most the day. We will check repeat troponin to ensure no significant change. Patient does have some mild EKG changes and monitor patient's chest pain. She does have significant risk factors including known mild to moderate CAD. Majority of presentation appears related to complications from COVID-19 infection. Pulmonary recommendations appreciated. Continue with home diuretics and attempt to optimize heart failure regimen as able. Prognosis guarded. Past Medical History Past Medical History: Atrial Fibrillation, Coronary Artery Disease (CAD), Heart Failure, COPD, Eye Disorder, GERD/Reflux, GI Bleed, Hearing Disorder / Deafness, Hyperlipidemia, Hypertension, Myocardial Infarction (IN), Osteoarthritis (OA), Pneumonia, Renal Disease, Respiratory Disorder, Skin Disorder Additional Past Medical History / Comment(s): Covid+ 03/22/20 at [facility]. Pt diagnosed 03/18/21 with pharyngitis and is on antibiotic, nonischemic cardiomyopathy, pulmonary HTN, bronchitis, O2 at 2L/HS, gastritis, diverticular disease, HO-CHUNK/aides bilaterally, bilateral eye glaucoma, arthritis bilateral hands, CKD, rosacia, past lumbar slipped disc/pain/improved now. Last Myocardial Infarction Date:: 2016 History of Any Multi-Drug Resistant Organisms: None Reported Past Surgical History: Adenoidectomy, Appendectomy, Heart Catheterization, Hysterectomy, Orthopedic Surgery, Tonsillectomy Additional Past Surgical History / Comment(s): 2017 cardiac cath/treated medically, partial hysterectomy/still has part of L ovary, R knee arthroscopy/torn meniscus, EGD, colonoscopies, bilateral blepharoplasties, bilateral eye cataract removal/laser surgery for glaucoma. Past Anesthesia/Blood Transfusion Reactions: No Reported Reaction Additional Past Anesthesia/Blood Transfusion Reaction / Comment(s): . Past Psychological History: Anxiety Past Alcohol Use History: None Reported - Past Family History Brother(s) Additional Family Medical History / Comment(s): Patient had 3 brothers and one is living and 93 years of age and [place] with history of Alzheimer's dementia, coronary artery disease, CHF, A. fib, COPD. Patient has 2 brothers that have passed one from alcoholism and one from a traumatic head injury from a fall. Sister(s) Additional Family Medical History / Comment(s): Patient has one sister that of ovarian cancer. Patient has one son that from alcoholic complications. Father Family Medical History: Cancer Additional Family Medical History / Comment(s): Father at age 77yrs of cancer which pt believes may have started in his throat. Mother Family Medical History: Dementia Additional Family Medical History / Comment(s): Mother at age 95yrs. She was very healthy most of her life- she had dementia at the very end of her life. Medications and Allergies Home Medications Medication Instructions Recorded Confirmed Type Fluticasone/Salmeterol [Advair 1 puff INHALATION RT-BID@0900,2100 03/25/16 04/24/21 History 250-50 Diskus] Tiotropium 18 Mcg/Puff [Spiriva] 1 cap INHALATION RT-DAILY@0900 08/19/16 04/24/21 History Ferrous Sulfate [Iron (65 MG 325 mg PO DAILY@0900 07/27/17 04/24/21 History Elemental)] Albuterol Inhaler [Ventolin Hfa 1 puff INHALATION RT-QID #1 gm 03/26/21 04/24/21 Rx Inhaler] Acetaminophen [Tylenol] 650 mg PO Q4H PRN 04/24/21 04/24/21 History Albuterol Nebulized [Ventolin 2.5 mg INHALATION RT-Q6H PRN 04/24/21 04/24/21 History Nebulized] Amiodarone [Cordarone] 200 mg PO DAILY@0900 04/24/21 04/24/21 History Apixaban [Eliquis] 2.5 mg PO BID@0900,209904/24/21 04/24/21 History Atorvastatin [Lipitor] 20 mg PO DIRECTED 04/24/21 04/24/21 History Benzonatate [Tessalon Perles] 100 mg PO TID@0600,1400,219904/24/21 04/24/21 History Cholecalciferol [Vitamin D3 (25 50 mcg PO DAILY@0900 04/24/21 04/24/21 History Mcg = 1000 Iu)] Furosemide [Lasix] 20 mg PO BID@0600,1400 04/24/21 04/24/21 History LORazepam [Ativan] 1 mg PO HS@209904/24/21 04/24/21 History Lactose-Reduced Food [Ensure Plus] 120 ml PO TID@0900,1300,199904/24/21 04/24/21 History Levofloxacin [Levaquin] 500 mg PO DAILY@1400 04/24/21 04/24/21 History Melatonin 6 mg PO HS@209904/24/21 04/24/21 History Metoprolol Tartrate [Lopressor] 75 mg PO TID@0600,1400,219904/24/21 04/24/21 History Sennosides-Docusate Sodium 1 tab PO DAILY@0900 04/24/21 04/24/21 History [Senokot-S] Allergies Allergy/AdvReac Type Severity Reaction Status Date / Time amoxicillin [From Augmentin] Allergy Unknown Verified 04/24/21 13:30 cefuroxime axetil Allergy Unknown Verified 04/24/21 13:30 [From Ceftin] clavulanic acid Allergy Unknown Verified 04/24/21 13:30 [From Augmentin] Physical Exam Vitals: Vital Signs Temp Pulse Resp BP Pulse Ox 04/30/21 14:43 97.4 F L 81 19 106/73 95 04/30/21 07:36 97.4 F L 78 18 103/68 93 L 04/30/21 05:30 82 106/63 04/30/21 01:22 96.9 F L 76 16 108/67 95 Intake and Output 04/30/21 04/30/21 04/30/21 06:59 14:59 22:59 Intake Total 420 Output Total 1050 Balance -630 Intake: Oral 420 Output: Urine 1050 Other: Voiding Method Indwelling Catheter Weight 61 kg 61 kg Results 04/30/21 07:25 04/30/21 07:25 Cardiac Enzymes 04/30/21 04/30/21 Range/Units 07:25 09:32 AST 49 H (13-35) U/L Lactate Dehydrogenase 299 H (120-246) U/L Troponin I 0.038 H* (0.000-0.034) ng/mL CBC 04/30/21 Range/Units 07:25 WBC 15.67 H (4.50-10.00) X 10*3/uL RBC 3.67 L (4.10-5.20) X 10*6/uL Hgb 11.1 L (12.0-15.0) g/dL Hct 36.8 L (37.2-46.3) % Plt Count 478 H (140-440) X 10*3/uL Comprehensive Metabolic Panel 04/30/21 Range/Units 07:25 Sodium 139 (135-145) mmol/L Potassium 4.4 (3.5-5.5) mmol/L Chloride 97 (96-109) mmol/L Carbon Dioxide 29.6 H (20.0-27.5) mmol/L BUN 31.7 H (9.0-27.0) mg/dL Creatinine 0.9 (0.6-1.5) mg/dL Glucose 83 (70-110) mg/dL Calcium 8.7 (8.7-10.3) mg/dL AST 49 H (13-35) U/L ALT 100 H (8-44) U/L Alkaline Phosphatase 95 (41-126) U/L Total Protein 5.6 L (6.2-8.2) g/dL Albumin 3.2 L (3.8-4.9) g/dL Current Medications Generic Name Dose Route Start Last Admin Trade Name Freq PRN Reason Stop Dose Admin Acetaminophen 650 mg 04/25/21 10:42 04/30/21 15:20 Acetaminophen Tab 325 Mg Tab PO 650 mg Q4H PRN Administration MILD Pain Albuterol Sulfate 1 puff 04/25/21 12:00 04/30/21 19:14 Albuterol Hfa Inhaler INHALATION 1 puff RT-QID JORDY Administration Albuterol Sulfate 2 puff 04/25/21 10:42 Albuterol Hfa Inhaler INHALATION RT-Q6H PRN Shortness Of Breath Amiodarone HCl 200 mg 04/26/21 09:00 04/30/21 08:36 Amiodarone 200 Mg Tab PO 200 mg DAILY@0900 JORDY Administration Apixaban 2.5 mg 04/26/21 12:00 04/30/21 08:35 Apixaban 2.5 Mg Tablet PO 2.5 mg BID JORDY Administration Protocol Benzonatate 100 mg 04/25/21 14:00 04/30/21 15:15 Benzonatate 100 Mg Cap PO 100 mg TID@0600,1400,2200 JORDY Administration Budesonide/Formoterol Fumarate 2 puff 04/25/21 21:00 04/30/21 19:14 Symbicort 80-4.5 Mcg Inhaler INHALATION 2 puff RT-BID@0900,2100 JORDY Administration Cholecalciferol 50 mcg 04/26/21 09:00 04/30/21 08:36 Cholecalciferol 25 Mcg (1000 Iu) Tablet PO 50 mcg DAILY@0900 JORDY Administration Dexamethasone Sodium Phosphate 6 mg 04/25/21 12:30 04/30/21 08:36 Dexamethasone Sod Phosphate 10 Mg/Ml 1 Ml Vial IVP 6 mg DAILY JORDY Administration Ferrous Sulfate 325 mg 04/26/21 09:00 04/30/21 08:36 Ferrous Sulfate 325 Mg Tab PO 325 mg DAILY@0900 JORDY Administration Furosemide 40 mg 04/26/21 14:00 04/30/21 15:15 Furosemide 40 Mg Tab PO 40 mg BID@0600,1400 JORDY Administration Insulin Aspart 0 unit 04/26/21 21:00 04/30/21 17:27 Insulin Aspart (Novolog) 100 Unit/Ml Vial SQ 4 unit ACHS JORDY Administration Protocol Levofloxacin 250 mg 04/26/21 14:00 04/30/21 15:15 Levofloxacin 250 Mg Tab PO 250 mg DAILY@1400 JORDY Administration Lorazepam 1 mg 04/25/21 21:00 04/29/21 21:11 Lorazepam 1 Mg Tab PO 1 mg HS@2100 JORDY Administration Melatonin 6 mg 04/25/21 21:00 04/29/21 21:11 Melatonin 3 Mg Tablet PO 6 mg HS@2100 JORDY Administration Metoprolol Tartrate 75 mg 04/25/21 14:00 04/30/21 15:15 Metoprolol Tartrate 25 Mg Tab PO 75 mg TID@0600,1400,2200 JORDY Administration Senna/Docusate Sodium 1 each 04/26/21 09:00 04/29/21 08:21 Sennosides-Docusate Sodium 1 Each Tab PO 1 each DAILY@0900 JORDY Administration Tiotropium [place] 2 puff 04/26/21 08:00 04/30/21 08:09 Tiotropium 2.5 Mcg Inhaler INHALATION 2 puff RT-DAILY JORDY Administration Intake and Output 04/30/21 04/30/21 04/30/21 06:59 14:59 22:59 Intake Total 420 Output Total 1050 Balance -630 Intake: Oral 420 Output: Urine 1050 Other: Voiding Method Indwelling Catheter Weight 61 kg 61 kg Patient Weight 05/01/21 06:59 Weight 61 kg 04/30/21 07:25 04/30/21 07:25
[2021-04-30 20:31] LABS: Glucose,Whole Blood 227 mg/dL (75-99)
[2021-04-30] MEDS: MELATONIN 3 MG TABLET PO SCH (21:29)
[2021-04-30] MEDS: LORazepam 1 MG TAB PO SCH (21:30)
[2021-05-01] MEDS: METOPROLOL TARTRATE 25 MG TAB PO SCH ×3 (05:54→21:28)
[2021-05-01] MEDS: BENZONATATE 100 MG CAP PO SCH ×3 (05:54→21:27)
[2021-05-01] MEDS: FUROSEMIDE 40 MG TAB PO SCH ×2 (05:54→13:55)
[2021-05-01 07:25] LABS: Glucose,Whole Blood 94 mg/dL (75-99)
[2021-05-01] MEDS: INSULIN ASPART (NovoLOG) 100 UNIT/ML VIAL SQ SCH ×4 (07:27→22:15)
[2021-05-01] MEDS: ALBUTEROL HFA INHALER INHALATION SCH ×4 (07:35→19:46)
[2021-05-01] MEDS: SYMBICORT 80-4.5 MCG INHALER INHALATION SCH ×2 (07:35→19:46)
[2021-05-01] MEDS: TIOTROPIUM 2.5 MCG INHALER INHALATION SCH (07:35)
[2021-05-01] MEDS: FERROUS SULFATE 325 MG TAB PO SCH (09:12)
[2021-05-01] MEDS: AMIODARONE 200 MG TAB PO SCH (09:12)
[2021-05-01] MEDS: SENNOSIDES-DOCUSATE SODIUM 1 EACH TAB PO SCH (09:12)
[2021-05-01] MEDS: APIXABAN 2.5 MG TABLET PO SCH ×2 (09:12→21:28)
[2021-05-01] MEDS: CHOLECALCIFEROL 25 MCG (1000 IU) TABLET PO SCH (09:12)
[2021-05-01] MEDS: DEXAMETHASONE SOD PHOSPHATE 10 MG/ML 1 ML VIAL IVP SCH (09:43)
--- NOTE | 2021-05-01 09:45 | P.PN ---
Subjective Progress Note Date: 05/01/21 HISTORY OF PRESENT ILLNESS This is an 85-year-old female patient of Dr. Wills and Dr. Pagan with past medical history of chronic persistent atrial fibrillation, chronic systolic heart failure, pulmonary hypertension, COPD with chronic hypoxic respiratory failure on home O2 at 3 L as needed, hypertension, hyperlipidemia, chronic kidney disease stage III, generalized osteoarthritis. A hat hospitalization early in March for acute hypoxic respiratory failure secondary to acute ex acerbation of systolic heart failure, Covid 19 pneumonia and acute exacerbation of COPD and A. fib with RVR. Patient was discharged home with home care. She's was subsequently admitted on March 28 for same diagnoses and was discharged to [facility]. A is sent to us from [facility] due to confusion. Patient states that she is coughing all the time and has shortness of breath. She is on chronic oxy gen therapy. WBC 7.1, hemoglobin 9.1, platelet count 353. Sodium 130, potassium 4.2, chloride 97, CO2 28, BUN 30 creatinine 1.45. Glucose 140. Calcium 8.1. Total bilirubin 0.6, AST 31, ALT 17, alkaline phosphatase 76. Troponin 0.035. Pro- calcitonin 0.13. Urinalysis trace protein and negative for infection. Urine drug screen positive for opiates and benzodiazepines. Carotid virus PCR not d etected. Patient presented to emergency center and found to be afebrile, heart rate 95, blood pressure 96/53, pulse ox 93% on 3 L nasal cannula but subsequently pulse ox dropped to 89% on 4 L nasal cannula and patient was placed on high flow nasal cannula 15 L. EKG was atrial fibrillation heart rate of 90. Chest x-ray reveals worsening bilateral opacities consistent with COVID19 infection progression on background mild cardiomegaly and chronic emphysematour and pulmonary fibrotic changes. Echocardiogram 03/23/2021 revealed EF of 30-35%, mild aortic regurgitation, mo derate mitral regurgitation, severe tricuspid regurgitation, severe pulmonary hypertension. Patient seen today in the ER waiting for bed on CSD unit. She has been seen by pulmonary medicine and was cleared yesterday to return to [facility] prior to the drop in pulse ox. 04/26: Patient is seen today on the cardiac stepdown unit. She is now on BiPAP with pulse ox 96%. Patient's been afebrile, heart rate 96, blood pressure 93/63. Patient is seen and followed by pulmonary medicine and recommend ean nuing BiPAP as needed only otherwise nasal cannula, continue diuretics and Decadron. Pulmonary has changed eliquis to heparin infusion. They ordered lower extremity Dopplers yesterday were negative for DVT. Repeat chest x-ray reveals findings similar to prior exam. Correlate for pneumonia, possible pleural effusions, heart failure not excluded. Underlying emphysema. 04/27: Patient is having urinary retention and required a straight cath 2 and now has 500 ML's on bladder scan, Callaway catheter to be placed. Patient has been afebrile, heart rate in the 80s and 90s, blood pressure 99/61, pulse ox 96% on 5 L nasal cannula. Levaquin nebulizers and Tessalon Perles. Oxygenation is improving. Patient is followed closely by pulmonary medicine. We'll plan to transfer the patient to [facility] with telemetry. 04/28: She is seen today on the [facility] floor. She has been afebrile, heart rate 50-80, blood pressure 103/68. Pulse ox is 91% on 6 L nasal cannula, patient was on BiPAP during the night. Repeat chest x-ray reveals COPD with continued bilateral interstitial and patchy infiltrates greater at the mid lungs. There may be slight interval improvement. Suspect trace pleural effusions. WBC is 9.6, hemoglobin 10.6, platelet count 422. D-dimer 2.81. Sodium 135. BUN 42 creatinine 1.07. Blood sugars running between 82 and 226. AST 106, ALT 124, alkaline phosphatase 107. Lactic acid 853. C-reactive protein 1.7. Discharge plan is to return to [facility] possibly ready by tomorrow. 04/29: Patient is on O2 at 6 L nasal cannula with pulse ox of 93-95%. Blood pressure remains on the lower side 86/47. She has been afebrile, heart rate 88. Capillary blood glucose running between 91 and 264. Repeat blood work ordered for tomorrow. Patient denies new complaints. Breathing status seems to be improving slowly. Anticipate discharge back to [facility] on Sunday. 04/30: Patient is found sitting up in bed anxious complaining of increase shortness of breath and chest discomfort. Patient states that her wrist feels sore. Patient has tenderness to the intercostal spacing. Patient states that she feels like her heart is racing and she is unable to catch her breath. Patient finds that this is worse than yesterday. EKG shows A. fib with RVR. A CTA is ordered. Troponin 3 ordered. Patient is currently on a eliquis 2.5 twice a day. Patient is currently on 5 L nasal cannula 93% 05/01: Patient is found sitting up in bed. She appears improved compared to yesterday. No longer complaining of increased shortness of breath or chest discomfort. Her chest CTA did show a left apical pneumothorax at less than 3%. Patient's first troponin was slightly elevated. Second troponin was within normal limits. Patient is anxious to return to [facility] on Sunday. She is currently on 3 L of oxygen via nasal cannula pulse pulse ox of 94%. Patient remains afebrile, heart rate 73 respirations 16 blood pressure 98/61. REVIEW OF SYSTEMS Constitutional: No fever, no chills, no night sweats. No weight change. Noted weakness, noted fatigue noted lethargy. No daytime sleepiness. EENT: No headache. No blurred vision or double vision, no loss of vision. No loss of Hearing, no ringing in the ears, no dizziness. No nasal drainage or congestion. No epistaxis. No sore throat. Lungs: Reports shortness of breathworsening reports cough, no sputum prod uction. No wheezing. Cardiovascular: Reports chest pain, no lower extremity edema. Reports palpita tions. No paroxysmal nocturnal dyspnea. No orthopnea. No lightheadedness or dizziness. No syncopal episodes. Abdominal: No abdominal pain. No nausea, vomiting. No diarrhea. No constipation. No bloody or tarry stools. Reported loss of appetite. Genitourinary: No dysuria, increased frequency, urgency. No urinary retention. Musculoskeletal: No myalgias. Reports muscle weakness, reports gait dysfunction, no frequent falls. No back pain. No neck pain. Integumentary: No wounds, no lesions. No rash or pruritus. No unusual bruising. No change in hair or nails. Neurologic: No aphasia. No facial droop. Reported change in mentation. No head injury. No headache. No paralysis. No paresthesia. Psychiatric: No depression. Reports anxiety. No mood swings. Endocrine: Noted mildly abnormal blood sugars. No weight change. No excessive sweating or thirst. No cold intolerance. PHYSICAL EXAMINATION Gen: This is a thin 85-year-old female. She is resting in bed, anxious in moderate distress. She is currently on 6 L nasal cannula. HEENT: Head is atraumatic, normocephalic. Pupils equal, round. Sclerae is anicteric. NECK: Supple. No JVD. No lymphadenopathy. No thyromegaly. LUNGS: Scattered crackles. No wheezing. No intercostal retractions. Tenderness to intercostal spacing. HEART: Irregularly irregular rate and rhythm. No murmur. ABDOMEN: Soft. Bowel sounds are present. No masses. No tenderness. EXTREMITIES: No pedal edema. No calf tenderness. Dorsalis pedis +2 bilaterally. NEUROLOGICAL: Patient is awake, alert and oriented x3. Cranial nerves 2 through 12 are grossly intact. ASSESSMENT AND PLAN 1. Acute on chronic hypoxic respiratory failure secondary to a residual Covid 19 pneumonia on top of chronic systolic heart failure, COPD, pulmonary fibrosis. Continue oxygen therapy, Currently on BiPAP at night and 5 L nasal cannula. CTA impression: Small left apical pneumothorax less than 3%, no evidence of pulmonary embolism, pleural effusions and extensive pulmonary infiltrates probably related to combined pneumonia and congestive heart failure. Pulmonary infiltrates equivocally decreased compared to EXAM. Second set of troponins within normal limits. Cardiology consult appreciated. 2. Chronic systolic heart failure. Continue Lasix 40 mg oral twice daily. 3. Possible Covid 19 pneumonia. Pulmonary consult appreciated. Patient's been started on Ventolin inhaler 4 times daily, Symbicort 2 puffs twice daily, dexamethasone 6 mgoral daily, Spiriva, Tessalon Perles. 4. COPD without exacerbation. Continue Symbicort, Spiriva, albuterol, dexamethasone. 5. Chronic persistent atrial fibrillation. Continue amiodarone 200 mg daily, Lopressor 75 mg 3 times daily, eliquis 2.5 mg twice daily 6. Anemia of chronic disease. Continue to monitor. 7. Hypertension. Continue Lopressor. 8. Hyperlipidemia. Continue Lipitor 20 mg at bedtime. 9. Chronic kidney disease stage III. Monitor renal function, avoid nephrotoxic agents. 10. Valvular heart disease with mild aortic regurgitation, moderate mitral regurgitation, severe tricuspid regurgitation. 11. Severe pulmonary hypertension. 12. A. fib with RVR. Consult cardiology. Patient is currently on eliquis. 13. GI prophylaxis. Protonix. 14. DVT prophylaxis. Eliquis. 15. COVID-19 testing negative. Patient has been hospitalized during a pandemic. DISCHARGE PLAN Return to [facility] on Sunday. Impression and plan of care have been directed as dictated by the signing physician. Yaneth Ross nurse practitioner acting as scribe for signing physician. Objective - Vital Signs Vital signs: Vital Signs Temp 97.5 F L 05/01/21 08:00 Pulse 73 05/01/21 08:00 Resp 16 05/01/21 08:00 BP 98/61 05/01/21 08:00 Pulse Ox 94 L 05/01/21 08:00 Intake & Output 04/30/21 05/01/21 05/01/21 18:59 06:59 18:59 Intake Total 420 Output Total 1050 800 Balance -630 -800 Weight 61 kg Intake: Oral 420 Output: Urine 1050 800 Other: Voiding Method Indwelling Catheter Indwelling Catheter Indwelling Catheter # Bowel Movements 1 - Labs CBC & Chem 7: 04/30/21 07:25 04/30/21 07:25 Labs: Abnormal Lab Results - Last 24 Hours (Table) 04/30/21 04/30/21 04/30/21 Range/Units 07:25 07:25 09:32 WBC 15.67 H (4.50-10.00) X 10*3/uL RBC 3.67 L (4.10-5.20) X 10*6/uL Hgb 11.1 L (12.0-15.0) g/dL Hct 36.8 L (37.2-46.3) % MCV 100.3 H (80.0-97.0) fL MCHC 30.2 L (32.0-37.0) g/dL RDW 16.6 H (11.5-14.5) % Plt Count 478 H (140-440) X 10*3/uL MPV 9.2 L (9.5-12.2) fL Carbon Dioxide 29.6 H (20.0-27.5) mmol/L BUN 31.7 H (9.0-27.0) mg/dL Est GFR (CKD-EPI)NonAf 54.2 L (60.0-200.0) BUN/Creatinine Ratio 33.54 H (12.00-20.00) Ratio POC Glucose (mg/dL) (75-99) mg/dL AST 49 H (13-35) U/L ALT 100 H (8-44) U/L Lactate Dehydrogenase 299 H (120-246) U/L Troponin I 0.038 H* (0.000-0.034) ng/mL Total Protein 5.6 L (6.2-8.2) g/dL Albumin 3.2 L (3.8-4.9) g/dL Albumin/Globulin Ratio 1.35 L (1.60-3.17) g/dL 04/30/21 04/30/21 04/30/21 Range/Units 11:01 16:24 18:56 WBC (4.50-10.00) X 10*3/uL RBC (4.10-5.20) X 10*6/uL Hgb (12.0-15.0) g/dL Hct (37.2-46.3) % MCV (80.0-97.0) fL MCHC (32.0-37.0) g/dL RDW (11.5-14.5) % Plt Count (140-440) X 10*3/uL MPV (9.5-12.2) fL Carbon Dioxide (20.0-27.5) mmol/L BUN (9.0-27.0) mg/dL Est GFR (CKD-EPI)NonAf (60.0-200.0) BUN/Creatinine Ratio (12.00-20.00) Ratio POC Glucose (mg/dL) 120 H 173 H 231 H (75-99) mg/dL AST (13-35) U/L ALT (8-44) U/L Lactate Dehydrogenase (120-246) U/L Troponin I (0.000-0.034) ng/mL Total Protein (6.2-8.2) g/dL Albumin (3.8-4.9) g/dL Albumin/Globulin Ratio (1.60-3.17) g/dL 04/30/21 Range/Units 20:30 WBC (4.50-10.00) X 10*3/uL RBC (4.10-5.20) X 10*6/uL Hgb (12.0-15.0) g/dL Hct (37.2-46.3) % MCV (80.0-97.0) fL MCHC (32.0-37.0) g/dL RDW (11.5-14.5) % Plt Count (140-440) X 10*3/uL MPV (9.5-12.2) fL Carbon Dioxide (20.0-27.5) mmol/L BUN (9.0-27.0) mg/dL Est GFR (CKD-EPI)NonAf (60.0-200.0) BUN/Creatinine Ratio (12.00-20.00) Ratio POC Glucose (mg/dL) 227 H (75-99) mg/dL AST (13-35) U/L ALT (8-44) U/L Lactate Dehydrogenase (120-246) U/L Troponin I (0.000-0.034) ng/mL Total Protein (6.2-8.2) g/dL Albumin (3.8-4.9) g/dL Albumin/Globulin Ratio (1.60-3.17) g/dL
[2021-05-01 11:32] LABS: Glucose,Whole Blood 112 mg/dL (75-99)
[2021-05-01] MEDS: LEVOFLOXACIN 250 MG TAB PO SCH (13:55)
[2021-05-01 16:43] LABS: Glucose,Whole Blood 198 mg/dL (75-99)
--- NOTE | 2021-05-01 16:44 | P.PN ---
Subjective HISTORY OF PRESENTING ILLNESS his is a 85-year-old female with a past medical history significant for chronic persistent atrial fibrillation, congestive heart failure, NICMP, hypertension, and hyperlipidemia and recent COVID 19 infection. Patient follows in the office with Dr. Pagan. 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 She presented to secondary to apparent altered mental status and a dditionally chronic respiratory failure. She did have COVID-19 in March 2021 and unfortunately has had complications from that time with respiratory failure and oxygen dependence. She has been at subacute rehab at [facility] on the [place]. She was admitted to the hospital and chest x-ray showed pulmonary infiltrates and was placed on antibiotics as well as home diuretics. She has been hospitalized for approximately 6 days and then started complaining of chest discomfort this morning. Repeat EKG was performed which did show some ST depressions in the lateral leads. Troponin was drawn which was abnormal at 0.038 however this appeared similar to prior from 04/24/2021 of 0.035 and even improved from prior 0.08 from hospitalization in March. She has been on amiodarone as well as Eliquis 2.5 mg twice a day dosing and oral Lasix 40 mg twice a day, with metoprolol 75 mg 3 times a day. CTA was performed today which showed small left apical pneumothorax less than 3%, no pulmonary embolism, pleural effusions and extensive pulmonary infiltrates likely related to pneumonia and congestive heart failure with pulmonary infiltrates significantly increased compared to old exam. 03/24/21 Echocardiogram completed revealing ejection fraction 30-35%, mild aortic regurgitation, moderate mitral regurgitation, severe tricuspid regurgitation, and severe pulmonary hypertension 05/01 Patient seen and examined. Patient denies any further chest pain. States she is still feeling "sick" and short of breath. States she has little appetite. PHYSICAL EXAMINATION Vital signs reviewed. CONSTITUTIONAL: No apparent distress, chronically ill appearing HEENT: Head is normocephalic. Pupils are equal, round. Sclerae anicteric. Mucous membranes of the mouth are moist. No JVD. No carotid bruit. CHEST EXAMINATION: Bilateral rhonchi HEART EXAMINATION: Irregular rate and rhythm. S1, S2 heard. +2/6 JEWEL, no gallops or rub. ABDOMEN: Soft, nontender. Positive bowel sounds. EXTREMITIES: 2+ peripheral pulses, no lower extremity edema and no calf tenderness. NEUROLOGIC EXAMINATION: Patient is awake, alert and oriented x3. ASSESSMENT 1. Precordial chest pain may be related to pneumonia versus rule out cardiac source 2. Elevated troponin, previously mildly elevated. Continue to trend 3. Acute on chronic respiratory failure mainly related to COVID-19 infection/residual lung injury plus possible and pneumonia. Possible component of heart failure however appears euvolemic 4. Chronic systolic heart failure 5. Nonischemic cardiomyopathy EF 30-35% 6. Small apical pneumothorax 7. Mild to moderate coronary artery disease by heart catheterization 2016 8. Chronic atrial fibrillation with controlled ventricular rates 9. Abnormal EKG with ST depressions 10. Altered mental status, currently appears improved 11. Debility PLAN Repeat troponin noted to be lower in stable and suspect patient's chest pain noncardiac related to her residual lung injury from Covid. She is on her home dose of Lasix 40 mg oral twice a day. Appears euvolemic. Heart rates well controlled on metoprolol 75 mg 3 times a day. Continue supportive care. Attempt to optimize heart failure regimen as able however BP borderline. Prognosis guarded. Objective - Vital Signs Vital signs: Vital Signs Temp 97.7 F 05/01/21 14:00 Pulse 76 05/01/21 14:00 Resp 18 05/01/21 14:00 BP 92/60 05/01/21 14:00 Pulse Ox 92 L 05/01/21 14:00 Intake & Output 04/30/21 05/01/21 05/01/21 18:59 06:59 18:59 Intake Total 420 Output Total 1050 800 800 Balance -630 -800 -800 Weight 61 kg Intake: Oral 420 Output: Urine 1050 800 800 Other: Voiding Method Indwelling Catheter Indwelling Catheter Indwelling Catheter # Bowel Movements 1 - Labs CBC & Chem 7: 04/30/21 07:25 04/30/21 07:25 Labs: Abnormal Lab Results - Last 24 Hours (Table) 04/30/21 04/30/21 05/01/21 Range/Units 18:56 20:30 11:29 POC Glucose (mg/dL) 231 H 227 H 112 H (75-99) mg/dL
[2021-05-01 19:26] VITALS: RESP 15
[2021-05-01 19:52] LABS: Glucose,Whole Blood 329 mg/dL (75-99)
[2021-05-01] MEDS: MELATONIN 3 MG TABLET PO SCH (21:27)
[2021-05-01] MEDS: ACETAMINOPHEN TAB 325 MG TAB PO PRN (21:28)
[2021-05-01] MEDS: LORazepam 1 MG TAB PO SCH (21:28)
[2021-05-01] MEDS ORDERED: INSULIN ASPART (NovoLOG) 100 UNIT/ML VIAL SQ ONE (21:43)
[2021-05-02 00:33] LABS: Glucose,Whole Blood 58 mg/dL (75-99)
[2021-05-02 00:50] LABS: Glucose,Whole Blood 114 mg/dL (75-99)
[2021-05-02] MEDS: ACETAMINOPHEN TAB 325 MG TAB PO PRN (03:30)
[2021-05-02] MEDS: BENZONATATE 100 MG CAP PO SCH ×2 (05:50→14:57)
[2021-05-02] MEDS: METOPROLOL TARTRATE 25 MG TAB PO SCH ×2 (05:50→14:57)
[2021-05-02] MEDS: FUROSEMIDE 40 MG TAB PO SCH ×2 (05:50→14:57)
[2021-05-02 06:25] VITALS: BP 114/73; PULSE 82; TEMP 97.6
--- NOTE | 2021-05-02 07:18 | XR ---
EXAMINATION TYPE: XR chest 2V DATE OF EXAM: 05/02/2021 COMPARISON: 04/28/2021 HISTORY: 85-year-old female left apical pneumothorax TECHNIQUE: AP and lateral views FINDINGS: Heart remains upper limits of normal in size. Hyperinflation. Interstitial and patchy opacities bilat erally, especially in the midlungs persist. Changes slightly increased in the upper lungs. Unable to exclude a trace 4 mm left apical pneumothorax. Finding may be projectional artifact. Continued small pleural effusions with basilar opacities. IMPRESSION: 1. COPD. Correlate for possible superimposed CHF with patchy pulmonary edema. Patchy opacities are sl ightly increased in the upper lungs. 2. Unable to exclude a trace 4 mm left apical pneumothorax versus projectional artifact. Attention on follow-up. 3. Continued small pleural effusions with adjacent atelectasis and/or consolidation.
[2021-05-02 09:00] LABS: Glucose,Whole Blood 140 mg/dL (75-99)
[2021-05-02] MEDS: SYMBICORT 80-4.5 MCG INHALER INHALATION SCH (09:35)
[2021-05-02] MEDS: ALBUTEROL HFA INHALER INHALATION SCH ×2 (09:35→12:46)
[2021-05-02] MEDS: TIOTROPIUM 2.5 MCG INHALER INHALATION SCH (09:35)
[2021-05-02] MEDS: INSULIN ASPART (NovoLOG) 100 UNIT/ML VIAL SQ SCH ×2 (09:37→12:11)
[2021-05-02] MEDS: AMIODARONE 200 MG TAB PO SCH (09:40)
[2021-05-02] MEDS: DEXAMETHASONE SOD PHOSPHATE 10 MG/ML 1 ML VIAL IVP SCH (09:40)
[2021-05-02] MEDS: CHOLECALCIFEROL 25 MCG (1000 IU) TABLET PO SCH (09:40)
[2021-05-02] MEDS: SENNOSIDES-DOCUSATE SODIUM 1 EACH TAB PO SCH (09:40)
[2021-05-02] MEDS: APIXABAN 2.5 MG TABLET PO SCH (09:40)
[2021-05-02] MEDS: FERROUS SULFATE 325 MG TAB PO SCH (09:40)
[2021-05-02 11:15] LABS: Glucose,Whole Blood 142 mg/dL (75-99)
--- NOTE | 2021-05-02 12:34 | P.DS ---
Providers Date of admission: 04/24/21 14:47 Expected date of discharge: 05/02/21 Attending physician: Geovanny Easley MD Consults: 04/24/21 14:46 Consult Physician Urgent Consulting Provider: Balta Crouch Consult Reason/Comments: COVID pneumonia Do you want consulting provider notified?: Yes 04/30/21 09:02 Consult Physician Routine Consulting Provider: Ashkan Silverman Consult Reason/Comments: Afib with RVR Do you want consulting provider notified?: Yes Primary care physician: [facility] Course: HISTORY OF PRESENT ILLNESS This is an 85-year-old female patient of Dr. Wills and Dr. Pagan with past medical history of chronic persistent atrial fibrillation, chronic systolic heart failure, pulmonary hypertension, COPD with chronic hypoxic respiratory failure on home O2 at 3 L as needed, hypertension, hyperlipidemia, chronic kidney disease stage III, generalized osteoarthritis. A hat hospitalization early in March for acute hypoxic respiratory failure secondary to acute exacerbation of systolic heart failure, Covid 19 pneumonia and acute exacerbation of COPD and A. fib with RVR. Patient was discharged home with home care. She's was subsequently admitted on March 28 for same diagnoses and was discharged to [facility]. A is sent to us from [facility] due to confusion. Patient states that she is coughing all the time and has shortness of breath. She is on chronic oxygen therapy. WBC 7.1, hemoglobin 9.1, platelet count 353. Sodium 130, potassium 4.2, chloride 97, CO2 28, BUN 30 creatinine 1.45. Glucose 140. Calcium 8.1. Total bilirubin 0.6, AST 31, ALT 17, alkaline phosphatase 76. Troponin 0.035. Pro- calcitonin 0.13. Urinalysis trace protein and negative for infection. Urine drug screen positive for opiates and benzodiazepines. Carotid virus PCR not detected. Patient presented to [facility] emergency center and found to be afebrile, heart rate 95, blood pressure 96/53, pulse ox 93% on 3 L nasal cannula but subsequently pulse ox dropped to 89% on 4 L nasal cannula and patient was placed on high flow nasal cannula 15 L. EKG was atrial fibrillation heart rate of 90. Chest x-ray reveals worsening bilateral opacities consistent with COVID19 infection progression on background mild cardiomegaly and chronic emphysematour and pulmonary fibrotic changes. Echocardiogram 03/23/2021 revealed EF of 30-35%, mild aortic regurgitation, moderate mitral regurgitation, severe tricuspid regurgitation, severe pulmonary hypertension. Patient seen today in the ER waiting for bed on CSD unit. She has been seen by pulmonary medicine and was cleared yesterday to return to [facility] prior to the drop in pulse ox. 04/26: Patient is seen today on the cardiac stepdown unit. She is now on BiPAP with pulse ox 96%. Patient's been afebrile, heart rate 96, blood pressure 93/63. Patient is seen and followed by pulmonary medicine and recommend continuing BiPAP as needed only otherwise nasal cannula, continue diuretics and Decadron. Pulmonary has changed eliquis to heparin infusion. They ordered lower extremity Dopplers yesterday were negative for DVT. Repeat chest x-ray reveals findings similar to prior exam. Correlate for pneumonia, possible pleural effusions, heart failure not excluded. Underlying emphysema. 04/27: Patient is having urinary retention and required a straight cath 2 and now has 500 ML's on bladder scan, Callaway catheter to be placed. Patient has been afebrile, heart rate in the 80s and 90s, blood pressure 99/61, pulse ox 96% on 5 L nasal cannula. Levaquin nebulizers and Tessalon Perles. Oxygenation is improving. Patient is followed closely by pulmonary medicine. We'll plan to transfer the patient to [facility] with telemetry. 04/28: She is seen today on the [facility] floor. She has been afebrile, heart rate 50-80, blood pressure 103/68. Pulse ox is 91% on 6 L nasal cannula, patient was on BiPAP during the night. Repeat chest x-ray reveals COPD with continued jessica ateral interstitial and patchy infiltrates greater at the mid lungs. There may be slight interval improvement. Suspect trace pleural effusions. WBC is 9.6, hemoglobin 10.6, platelet count 422. D-dimer 2.81. Sodium 135. BUN 42 creatinine 1.07. Blood sugars running between 82 and 226. AST 106, ALT 124, alkaline phosphatase 107. Lactic acid 853. C-reactive protein 1.7. Discharge plan is to return to [facility] possibly ready by tomorrow. 04/29: Patient is on O2 at 6 L nasal cannula with pulse ox of 93-95%. Blood pressure remains on the lower side 86/47. She has been afebrile, heart rate 88. Capillary blood glucose running between 91 and 264. Repeat blood work ordered for tomorrow. Patient denies new complaints. Breathing status seems to be improving slowly. Anticipate discharge back to [facility] on Sunday. 04/30: Patient is found sitting up in bed anxious complaining of increase shortness of breath and chest discomfort. Patient states that her wrist feels sore. Patient has tenderness to the intercostal spacing. Patient states that she feels like her heart is racing and she is unable to catch her breath. Patient finds that this is worse than yesterday. EKG shows A. fib with RVR. A CTA is ordered. Troponin 3 ordered. Patient is currently on a eliquis 2.5 twice a day. Patient is currently on 5 L nasal cannula 93% 05/01: Patient is found sitting up in bed. She appears improved compared to yesterday. No longer complaining of increased shortness of breath or chest discomfort. Her chest CTA did show a left apical pneumothorax at less than 3%. Patient's first troponin was slightly elevated. Second troponin was within normal limits. Patient is anxious to return to [facility] on Sunday. She is currently on 3 L of oxygen via nasal cannula pulse pulse ox of 94%. Patient remains afebrile, heart rate 73 respirations 16 blood pressure 98/61. 05/02: Patient is currently on 5 L nasal cannula pulse ox of 96%, plan to wean this down and her baseline is at 3 L. She's been afebrile, heart rate in the 80s, blood pressure 114/73. Capillary blood glucose running between 5842. Note the patient was 329 last evening. Repeat chest x-ray reveals COPD correlate for superimposed heart failure and patchy pulmonary edema. Patchy opacities are slightly increased in the upper lungs. Unable to exclude 4 mm left apical pneumothorax versus projectional artifact. Continue small pleural effusions with adjacent atelectasis and/or consolidation. Cardiology has been following. Patient is complaining of pain from the Callaway catheter which will have discontinued prior to her discharge. Patient will be discharged back to [facility] today in stable condition. DISCHARGE DIAGNOSES 1. Acute on chronic hypoxic respiratory failure secondary to a residual Covid 19 pneumonia on top of chronic systolic heart failure, COPD, pulmonary fibrosis. 2. Chronic systolic heart failure. 3. Possible Covid 19 pneumonia. 4. COPD without exacerbation. 5. Chronic persistent atrial fibrillation. 6. Anemia of chronic disease. 7. Hypertension. 8. Hyperlipidemia. 9. Chronic kidney disease stage III. 10. Valvular heart disease with mild aortic regurgitation, moderate mitral regurgitation, severe tricuspid regurgitation. 11. Severe pulmonary hypertension. 12. A. fib with RVR. DISCHARGE PLAN Return to [facility] Greater than 35 minutes was utilized and coordinating patient's discharge. Impression and plan of care have been directed as dictated by the signing physician. Margaret Pulliam nurse practitioner acting as scribe for signing physician. Patient Condition at Discharge: Stable Plan - Discharge Summary Discharge Rx Participant: No New Discharge Prescriptions: New Levofloxacin [Levaquin] 250 mg PO DAILY@1400 #3 tab Continue Fluticasone/Salmeterol [Advair 250-50 Diskus] 1 puff INHALATION RT- BID@0900,2100 Tiotropium 18 Mcg/Puff [Spiriva] 1 cap INHALATION RT-DAILY@0900 Ferrous Sulfate [Iron (65 MG Elemental)] 325 mg PO DAILY@0900 Albuterol Inhaler [Ventolin Hfa Inhaler] 1 puff INHALATION RT-QID #1 gm Benzonatate [Tessalon Perles] 100 mg PO TID@0600,1400,2200 Albuterol Nebulized [Ventolin Nebulized] 2.5 mg INHALATION RT-Q6H PRN PRN Reason: Shortness Of Breath Lactose-Reduced Food [Ensure Plus] 120 ml PO TID@0900,1300,2000 Cholecalciferol [Vitamin D3 (25 Mcg = 1000 Iu)] 50 mcg PO DAILY@0900 Apixaban [Eliquis] 2.5 mg PO BID@0900,2100 Amiodarone [Cordarone] 200 mg PO DAILY@0900 Acetaminophen [Tylenol] 650 mg PO Q4H PRN PRN Reason: Pain Metoprolol Tartrate [Lopressor] 75 mg PO TID@0600,1400,2200 Furosemide [Lasix] 20 mg PO BID@0600,1400 Sennosides-Docusate Sodium [Senokot-S] 1 tab PO DAILY@0900 Melatonin 6 mg PO HS@2100 Atorvastatin [Lipitor] 20 mg PO DIRECTED Changed LORazepam [Ativan] 1 mg PO HS@2100 #3 tab Discontinued Levofloxacin [Levaquin] 500 mg PO DAILY@1400 Discharge Medication List Fluticasone/Salmeterol [Advair 250-50 Diskus] 1 puff INHALATION RT-BID@0900,209903/25/16 [History] Tiotropium 18 Mcg/Puff [Spiriva] 1 cap INHALATION RT-DAILY@89908/19/16 [History] Ferrous Sulfate [Iron (65 MG Elemental)] 325 mg PO DAILY@89907/27/17 [History] Albuterol Inhaler [Ventolin Hfa Inhaler] 1 puff INHALATION RT-QID #1 gm 03/26/21 [Rx] Acetaminophen [Tylenol] 650 mg PO Q4H PRN 04/24/21 [History] Albuterol Nebulized [Ventolin Nebulized] 2.5 mg INHALATION RT-Q6H PRN 04/24/21 [History] Amiodarone [Cordarone] 200 mg PO DAILY@0904/24/21 [History] Apixaban [Eliquis] 2.5 mg PO BID@0900,209904/24/21 [History] Atorvastatin [Lipitor] 20 mg PO DIRECTED 04/24/21 [History] Benzonatate [Tessalon Perles] 100 mg PO TID@0600,1400,219904/24/21 [History] Cholecalciferol [Vitamin D3 (25 Mcg = 1000 Iu)] 50 mcg PO DAILY@0904/24/21 [History] Furosemide [Lasix] 20 mg PO BID@0600,1400 04/24/21 [History] Lactose-Reduced Food [Ensure Plus] 120 ml PO TID@0900,1300,199904/24/21 [History] Melatonin 6 mg PO HS@209904/24/21 [History] Metoprolol Tartrate [Lopressor] 75 mg PO TID@0600,1400,22004/24/21 [History] Sennosides-Docusate Sodium [Senokot-S] 1 tab PO DAILY@89904/24/21 [History] LORazepam [Ativan] 1 mg PO HS@2099 #3 tab 05/02/21 [Rx] Levofloxacin [Levaquin] 250 mg PO DAILY@1400 #3 tab 05/02/21 [Rx] Follow up Appointment(s)/Referral(s): Otto Wills MD [Primary Care Provider] - 1 Week (After discharge from [facility]) Activity/Diet/Wound Care/Special Instructions: Callaway catheter to be removed. Monitor for urinary retention. Discharge Disposition: TRANSFER TO SNF/ECF
--- NOTE | 2021-05-02 14:41 | P.PN ---
Subjective Progress Note Date: 05/02/21 HISTORY OF PRESENT ILLNESS: This is a 85-year-old female with a past medical history significant for chronic persistent atrial fibrillation, congestive heart failure, NICMP, hypertension, and hyperlipidemia and recent COVID 19 infection. Patient follows in the office with Dr. Pagan. 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 She presented to secondary to apparent altered mental status and additionally chronic respiratory failure. She did have COVID-19 in March 2021 and unfortunately has had complications from that time with respiratory failure and oxygen dependence. She has been at subacute rehab at [facility]. She was admitted to the hospital and chest x-ray showed pulmonary infiltrates and was placed on antibiotics as well as home diuretics. She has been hospitalized for approximately 6 days and then started complaining of chest discomfort this morning. Repeat EKG was performed which did show some ST depressions in the lateral leads. Troponin was drawn which was abnormal at 0.038 however this appeared similar to prior from 04/24/2021 of 0.035 and even improved from prior 0.08 from hospitalization in March. She has been on amiodarone as well as Eliquis 2.5 mg twice a day dosing and oral Lasix 40 mg twice a day, with metoprolol 75 mg 3 times a day. CTA was performed today which showed small left apical pneumothorax less than 3%, no pulmonary embolism, pleural effusions and extensive pulmonary infiltrates likely related to pneumonia and congestive heart failure with pulmonary infiltrates significantly increased compared to old exam. 03/24/21 Echocardiogram completed revealing ejection fraction 30-35%, mild aortic regurgitation, moderate mitral regurgitation, severe tricuspid regurgitation, and severe pulmonary hypertension 05/01 Patient seen and examined. Patient denies any further chest pain. States she is still feeling "sick" and short of breath. States she has little appetite. 05/02/2021 Patient examined this afternoon at the bedside. Patient denies chest pain or pressure. She denies shortness of breath. She states that she does not feel well. She reports generalized discomfort. Vital signs are stable. PHYSICAL EXAM: VITAL SIGNS: Reviewed. GENERAL: Well-developed in no acute distress. NECK: Supple. No JVD or thyromegaly LUNGS: Respirations even and unlabored. Lungs diminished with bilateral rhonchi HEART: Irregular rate and rhythm. S1 and S2 heard. Systolic murmur noted. EXTREMITIES: Normal range of motion. No clubbing or cyanosis. Peripheral pulses intact. No lower extremity edema ASSESSMENT: 1. Precordial chest pain may be related to pneumonia versus rule out cardiac source 2. Elevated troponin, previously mildly elevated. Continue to trend 3. Acute on chronic respiratory failure mainly related to COVID-19 infection/residual lung injury plus possible and pneumonia. Possible component of heart failure however appears euvolemic 4. Chronic systolic heart failure 5. Nonischemic cardiomyopathy EF 30-35% 6. Small apical pneumothorax 7. Mild to moderate coronary artery disease by heart catheterization 2016 8. Chronic atrial fibrillation with controlled ventricular rates 9. Abnormal EKG with ST depressions 10. Altered mental status, currently appears improved 11. Debility PLAN: Continue current cardiac medications Patient is stable for discharge today from a cardiac standpoint We will sign off. Please reconsult if needed. Nurse practitioner note has been reviewed by physician. Signing provider agrees with the documented findings, assessment, and plan of care. Objective - Vital Signs Vital signs: Vital Signs Temp 97.6 F 05/02/21 05:24 Pulse 82 05/02/21 07:48 Resp 15 05/02/21 07:48 BP 114/73 05/02/21 05:24 Pulse Ox 96 05/02/21 05:24 Intake & Output 05/01/21 05/02/21 05/02/21 18:59 06:59 18:59 Output Total 1475 600 Balance -1475 -600 Output: Urine 1475 600 Other: Voiding Method Indwelling Catheter Indwelling Catheter Indwelling Catheter # Bowel Movements 1 - Labs CBC & Chem 7: 04/30/21 07:25 04/30/21 07:25 Labs: Abnormal Lab Results - Last 24 Hours (Table) 05/01/21 05/01/21 05/01/21 Range/Units 11:29 16:41 19:49 POC Glucose (mg/dL) 112 H 198 H 329 H (75-99) mg/dL 05/02/21 05/02/21 05/02/21 Range/Units 00:29 00:48 08:58 POC Glucose (mg/dL) 58 L 114 H 140 H (75-99) mg/dL
[2021-05-02] MEDS: LEVOFLOXACIN 250 MG TAB PO SCH (14:57)
--- NOTE | 2021-05-05 15:45 | CDI ---
Documentation Clarification Form Date: 05/05/2021 02:48:01 PM From: Luly Park RN CCDS Admit Date: 04/24/2021 02:47:00 PM Patient Name: Martha Cagle Visit Number: [id number] Discharge Date: 05/02/2021 02:59:00 PM ATTENTION: The Clinical Documentation Specialists (CDI) and [facility] Coding Staff appreciate your assistance in clarifying documentation. Please respond to the clarification below the line at the bottom and electronically sign. The CDI & [facility] Coding staff will review the response and follow-up if needed. Please note: Queries are made part of the Legal Health Record. If you have any questions, please contact the author of this message via ITS. Dr. Geovanny Easley Conflicting documentation has been found in the medical record. As attending physician, please provide clarification. Possible COVID 19 Pneumonia DCS, 05/02. Residual COVID 19 Pneumonia DCS, 05/02. History/Risk Factors: 85-year-old female presents to the ED from [facility] with confusion, shortness of breath and coughing. The patient was admitted in March of 2021 with Acute COVID 19 pneumonia and decompensated CHF and COPD exacerbation. Medical history COVID 19 Pneumonia, Home oxygen 3L as needed & COPD. Clinical Indicators: VSS 04/24 B/P 96/53; HR 95; Temp 98.5 F Oral; RR 22; SpO2 93% nasal cannula. CXR 04/24: Worsening bilateral opacities consistent with covid 19 infection progression on background mild cardiomegaly and chronic emphysematous and pulmonary fibrotic changes. LABS 04/24: Wbc 7.7; Lymphocytes 0.5; Procalcitonin 0.13; Murguia Not Detected. 04/25 D-dimer 3.47. Treatment: 04/25 05/02 Ventolin Hfa Inhaler 1 Puff Inhalation QID; 04/25-05/02 Tessalon Perles 100mg PO TID; Vitamin D3 50Mcg PO Daily; 04/24 Hexadrol 6mg PO x1 STAT; 04/25 Hexadrol 6mg PO Daily; 04/25 05/02 Hexadrol 6mgh PO Daily; 04/25 05/02Decadron 6mg IVP Daily; 04/25 Levaquin 500mg PO x 1; 04/26 05/02 Levaquin 250mg PO Daily; 04/26 05/02 Spiriva Respimat 2.5Mcg 2 Puff Inhalation Daily. Can you please clarify COVID 19 Pneumonia? [ ] A current active infection [ x ] History of recent infection [ ] Other, please specify [ ] Unable to determine (Template Last Revised: May 2020) MTDD
== END 2021-05-02 14:59 | DRG 193 ==
LOC: EC 12:33 → 3SCARD 14:47 → 3NCARDOBS 04-26 02:32 → 4SSUR 04-27 23:19
PROVIDERS: ADMIT Internal Medicine; ATTEND Internal Medicine
PROC: 5A0935A Assistance with Respiratory Ventilation, Less than 24 Consecutive Hours, High Flow/Velocity Cannula (ICD-10-PCS; 2021-04-24)
PROC: 3E0333Z Introduction of Anti-inflammatory into Peripheral Vein, Percutaneous Approach (ICD-10-PCS; principal; 2021-04-25)
PROC: 5A09357 Assistance with Respiratory Ventilation, Less than 24 Consecutive Hours, Continuous Positive Airway Pressure (ICD-10-PCS; 2021-04-25)
DX: J18.9 Pneumonia, unspecified organism (principal); J96.21 Acute and chronic respiratory failure with hypoxia; I13.0 Hypertensive heart and chronic kidney disease with heart failure and stage 1 through stage 4 chronic kidney disease, or unspecified chronic kidney disease; I42.8 Other cardiomyopathies; I48.19 Other persistent atrial fibrillation; J93.83 Other pneumothorax; T83.84XA Pain due to genitourinary prosthetic devices, implants and grafts, initial encounter; I50.22 Chronic systolic (congestive) heart failure; U09.9 Post COVID-19 condition, unspecified; E86.0 Dehydration; D63.8 Anemia in other chronic diseases classified elsewhere; E78.5 Hyperlipidemia, unspecified; F41.9 Anxiety disorder, unspecified; H91.90 Unspecified hearing loss, unspecified ear; Z20.822 Contact with and (suspected) exposure to COVID-19; I08.3 Combined rheumatic disorders of mitral, aortic and tricuspid valves; I25.10 Atherosclerotic heart disease of native coronary artery without angina pectoris; I25.2 Old myocardial infarction; N18.30 Chronic kidney disease, stage 3 unspecified; I27.20 Pulmonary hypertension, unspecified; J43.9 Emphysema, unspecified; J84.10 Pulmonary fibrosis, unspecified; K57.90 Diverticulosis of intestine, part unspecified, without perforation or abscess without bleeding; M19.041 Primary osteoarthritis, right hand; M19.042 Primary osteoarthritis, left hand; Y84.6 Urinary catheterization as the cause of abnormal reaction of the patient, or of later complication, without mention of misadventure at the time of the procedure; M51.9 Unspecified thoracic, thoracolumbar and lumbosacral intervertebral disc disorder; Z79.01 Long term (current) use of anticoagulants; Z79.51 Long term (current) use of inhaled steroids; Z79.899 Other long term (current) drug therapy; Z80.41 Family history of malignant neoplasm of ovary; Z82.0 Family history of epilepsy and other diseases of the nervous system; Z82.49 Family history of ischemic heart disease and other diseases of the circulatory system; Z82.5 Family history of asthma and other chronic lower respiratory diseases; Z87.891 Personal history of nicotine dependence; Z90.711 Acquired absence of uterus with remaining cervical stump; Z99.81 Dependence on supplemental oxygen; R77.8 Other specified abnormalities of plasma proteins; R07.2 Precordial pain; R33.9 Retention of urine, unspecified
CPT/HCPCS: 36415; 71045; 71046; 71275; 80048; 80053; 80306; 81003; 83615; 84145; 84484; 85025; 85027; 85379; 85610; 85730; 86140; 86850; 86900; 86901; 87635; 93005; 93970; 94640; 94660; 94760; 96360; 99285